=== PATIENT | male | born 1970 | race Caucasian/White ===

== ENCOUNTER 2017-11-08 08:24 | Inpatient (IN) | payer MEDICAID, SELFPAY ==
[2017-11-08] VITALS (11 sets, daily range): BP systolic 96–162; BP diastolic 66–106; PULSE 63–118; RESP 16–24; TEMP 36.1–37.1; O2SAT 88–100; BMI 21.1
--- NOTE | 2017-11-08 08:41 | EKG12_ITS ---
Test Reason : SUBST ABUSE Blood Pressure : / mmHG Vent. Rate : 087 BPM Atrial Rate : 087 BPM P-R Int : 152 ms QRS Dur : 080 ms QT Int : 356 ms P-R-T Axes : 058 -04 038 degrees QTc Int : 428 ms Normal sinus rhythm Normal ECG Confirmed by NEYDA PRICE, KAT ([id number]), editor at large MANUEL OROZCO ([id number] on 11/13/2017 4:03:08 PM Referred By: SUSAN Confirmed By:KAT FAYE MD
--- NOTE | 2017-11-08 08:42 | ED.VISSUMM ---
- ER Visit Summary Date of Service: 11/08/17 Chief Complaint: Alcohol withdrawal History of Present Illness: The patient is a 47 M presenting stating that he feels he is going into alcohol withdrawal. His last drink was 1 hour prior to arrival. He states he drinks a liter of vodka per day. He has been drinking heavily for the past 2 weeks. He has a history of previous DTs. He states when he goes through withdrawal he starts with having hallucinations. He is requesting detox. He has had detox in the past but does not recall his last detox admission. Physical Examination: Vitals are stable. Patient is afebrile. Alert no acute distress. HEENT exam is unremarkable. Neck is supple. Lungs are clear and equal bilaterally. Heart is regular and tachycardic Abdomen is soft nontender nondistended. Extremities are unremarkable. Skin is warm and dry. Remainder of exam is unremarkable. Emergency Department Course and Treatment: Patient is given IV fluids, Zofran, Ativan. EKG is sinus rate of 87. CBC is normal except for platelets 62. Chemistries normal except for potassium 3.3. ALT 106, AST 134. INR is normal. Alcohol level 391. Drug screen is negative. Patient was evaluated by Jarrod Jones in the emergency department. Patient is tachycardic and has history of previous DTs. He will be admitted medically and followed by Jarrod Jones in the hospital. Discussed with Dr. Palacios. Disposition: Admission Impression: Alcohol withdrawal This note was generated with [employer] dictation software. It may contain incorrect words, spelling, and punctuation that were not noted in review of the chart prior to signing ED Disposition - Plan for ED Patient: Chief Complaint: Subst Abuse Referrals: Elmer Bolton MD [Primary Care Provider] -
[2017-11-08 09:03] LABS: Absolute Lymphocyte Count 2.42 X10^3/ul (0.83-4.51); Absolute Neutrophil Count 1.2 X10^3/uL (2.0-7.7); Basophil# 0.07 X10^3/uL; Basophil% 1.5 % (0-1); Eosinophil# 0.28 X10^3/uL; Eosinophils% 5.9 % (0-5); Hematocrit 41.7 % (40-54); Hemoglobin 14.5 g/dl (13.0-16.5); Lymphocyte # 2.42 X10^3/ul (4.0); Lymphocyte % 51.4 % (19-41); Mean Corp Hgb Conc 34.8 g/gl (32-36); Mean Corpuscular Volume 94.8 fL (80-94); Mean Platelet Vol. 9.3 fl (6.2-12.0); Monocyte# 0.74 X10^3/uL; Monocyte% 15.7 % (0-10); Neutrophil # 1.18 X10^3/uL (2.7-7.7); Neutrophil % 25.1 % (47-70); POSITIVE COUNT NO; POSITIVE DIFFERENTIAL NO; POSITIVE MORPHOLOGY NO; Platelet Count 62 K/mm3 (150-450); RBC Distribution Width SD 48.7 fl (35.1-43.9); White Blood Count 4.7 K/mm3 (4.4-11.0)
[2017-11-08] MEDS: 0.9% Normal Saline 1,000 ML 1000 ML IV (09:12)
[2017-11-08] MEDS: LORazepam 2 MG/ML Syringe 1 MG IV (09:13)
[2017-11-08] MEDS: Ondansetron 4 MG/2 ML Vial IV (09:13)
[2017-11-08 09:24] LABS: AST(SGOT) 134 U/L (15-37); Alanine Aminotransfer ALT/SGPT 106 U/L (16-61); Albumin, Serum 4.5 g/dL (3.2-5.0); Alkaline Phosphatase 86 U/L (45-117); Anion Gap 10 (5-15); BUN 9 mg/dL (7-18); Bilirubin, Direct 0.21 mg/dL (0.00-0.30); Calcium,Total 8.7 mg/dL (8.5-10.1); Chloride 101 mmol/L (98-107); Creatinine, Serum 0.75 mg/dL (0.70-1.30); EST Glomerular Filtration Rate 117 mL/min (>60); Est Glom Filt Rate - Afr Amer 142 mL/min (>60); Estimated Creatinine Clearance 129.18 ml/min; Glucose 87 mg/dL (70-110); Potassium 3.3 mmol/L (3.5-5.1); Protein, Total 8.5 g/dL (6.4-8.2); Sodium Level 141 mmol/L (136-145)
--- NOTE | 2017-11-08 09:45 | ED.RN ---
DR DAVIS NOTIFIED OF BLOOD ALCOHOL RESULTS
[2017-11-08 10:30] LABS: Amphetamine Urine VISTA NEGATIVE (<1000 ng/mL); Barbiturate Urine VISTA NEGATIVE (< 200 ng/mL); Benzodiazepine Urine VISTA NEGATIVE (< 200 ng/mL); Cocaine Urine VISTA NEGATIVE (< 300 ng/mL); Ecstacy Urine VISTA NEGATIVE (< 500 ng/mL); Methadone Urine VISTA NEGATIVE (< 300 ng/mL); PCP Urine VISTA NEGATIVE (< 25 ng/mL); THC Urine VISTA NEGATIVE (< 50 ng/mL); Vista UDS pH Range 6
--- NOTE | 2017-11-08 10:53 | ED.RN ---
PT PULSE OX 88% ON ROOM AIR. PT SLEEPING. AWAKENS EASILY. PULSE OX COMES UP TO 95%. WHEN GOES BACK TO SLEEP PULSE OX BACK DOWN TO 88%. PT PLACED ON O2 2L/MIN VIA N/C. DR DAVIS NOTIFIED
--- NOTE | 2017-11-08 14:29 | NURSING ---
218 ACUTE ALCOHOL WITHDRAWAL NEEL
[2017-11-08] MEDS: cloNIDine HCl 0.1 MG Tablet PO ×2 (16:23→21:39)
[2017-11-08] MEDS: chlordiazePOXIDE 25 MG Capsule PO ×2 (16:23→21:40)
[2017-11-08] MEDS: LORazepam 1 MG Tablet 2 MG PO (16:23)
--- NOTE | 2017-11-08 16:37 | HP.PCM_ITS ---
<Isaias Lu - Last Filed: 11/08/17 16:26> Problem List (1) Alcohol withdrawal Status: Acute (2) Hypoxia Status: Acute (3) Hypokalemia Status: Chronic (4) Thrombocytopenia Status: Chronic (5) Tobacco dependency Status: Chronic (6) Anxiety Status: Acute History of Present Illness Date of Admission: 11/08/17 Chief Complaint: alcohol withdrawal The patient is a 47 year old M who presented to the ER with a chief complaint of feeling that he was going to start having alcohol withdrawal and a desire to stop drinking and safely go through withdrawal. He stated he felt the usual symptoms of shakiness starting, and was worried in the past he has had hallucinations and severe tremor. He was found to have abnormal liver functions , low platelets, and low potassium in the ER. He was given IV potassium. He was admitted to the floor and currently is comfortable and sleepy. He has been through detox before, he cannot remember when the last time was. He started drinking heavily at age 43 after a divorce. He has been drinking heavily for about 4 weeks now, and reports about 1 liter of low proof vodka / day and occasionally a beer. He has a medical hx of anxiety for which he takes cymbalta and has no recollection of prior liver problems. His oxygenation was low in the ER and he was placed on nasal cannula, he has no hx asthma or copd and does not use O2 at home but is a smoker. He does not complain of SOB. [] Past Medical History Past Medical History (Chronic Problems): Chronic Problems Thrombocytopenia (Chronic) Hypokalemia (Chronic) Arthritis of left hip (Chronic) Tobacco dependency (Chronic) Allergies diphenhydramine HCl [From Benadryl] Adverse Reaction (Verified 11/08/17 08:28) Swelling mushroom Adverse Reaction (Verified 11/08/17 08:28) Vomiting Home Medications: Ambulatory Orders Medication Instructions Recorded Duloxetine Hcl [Cymbalta] 60 mg PO DAILY 11/08/17 Surgical History: tonsillectomy Psychiatric History: No pertinent psych hx Lives: Alone Smoking Status: Current every day smoker Tobacco Use: Cigarettes Alcohol: Heavy Drugs: None - *Family History Sibling History Items: No pertinent history Maternal History Items: Hypertension Paternal History Items: No pertinent history Review of Systems Constitutional: Reports: Fatigue. Denies: Chills, Fever, Weight Change HEENT: Denies: Head Aches, Sinus Congestion, Sinus Drainage Cardiovascular: Denies: Chest Pain, Palpitations Respiratory: Denies: Cough, Shortness of breath at rest, Sputum production Gastrointestinal: Denies: Abdominal Pain, Nausea, Vomiting Genitourinary: Denies: Dysuria Musculoskeletal: Denies: Joint Pain, Joint Tenderness Skin: Denies: Rash, Wounds Neurological: Denies: Numbness, Tingling, Focal weakness Psychiatric: Denies: Anxiety, Depression, Homicidal Ideations, Suicidal Ideations Hematologic/ Lymphatic: Denies: Easy Bruising, Easy Bleeding VTE Information - Inpt Only VTE Present on Admission: No VTE Mechan Device Prophylaxis: SCD's VTE Pharm Prophylaxis ordered?: No Reason prophylaxis not ordered:: Medical Contraindication Patient Problems: Active and Suspected Problems Anxiety (Acute) Hypoxia (Acute) - Physical Exam General: Alert, Oriented x3, Cooperative HEENT: Atraumatic, PERRLA, EOMI, Normocephalic Neck: Supple, No JVD, Negative Carotid Bruits Lungs: Clear to auscultation, Normal air movement Cardiovascular: Regular rate, No murmurs Abdomen: Bowel Sounds Present, Soft, Non Tender Extremities: No edema, Capillary Refill Less than 3 Seconds Skin: No rashes, No breakdown Musculoskeletal: No Tenderness to Palpation of Joints or Extremities Neurological: Cranial nerves II-XII grossly intact, - - fine tremor in hands, no asterixis. Psych/Mental Status: Normal Affect, Appropriate, Alert and oriented to time, place, person, mood and affect Vital Signs Temp Pulse Resp BP Pulse Ox 96.9 F L 87 16 116/85 H 94 11/08/17 15:38 11/08/17 15:38 11/08/17 15:38 11/08/17 15:38 11/08/17 15:38 Oxygen Flow Rate 4.5 Oxygen Delivery Method Nasal Cannula Weight: 76.6 kg Body Mass Index (BMI) 21.1 Assessment/Plan Active and Suspected Problems Anxiety (Acute) Hypoxia (Acute) 1. Acute alcohol intoxication with withdrawal - current primary symptoms is tremor. Drinks 1 liter low proof vodka / day. Alcoholic since 43. Plan at [place] is to get a private counselor. Does not want to do AA - makes him depressed. Start CIWA protocol with librium, ativan, folate, thiamine, multivitamin, and medical stabilization protocol. Check mag phos. K+ repleted. Watch for hallucinations ( hx). Drug screen otherwise negative. Alcohol level severely elevated at 391 at admission. 2. Acute hypoxia - lungs are clear. stable on 2 lpm. Wean as tolerated and start incentive spirometer. No complaints of SOB. 3. Nicotine abuse - Path 4. Elevated LFTs - no prior hx. Will need w/u as outpatient, likely has liver damage. 5. Thrombocytopenia - likely 2/2 alcoholism. No heparin products 6. Anxiety - continue cymbalta 7. Hypokalemia - repleted, check mag/phos, recheck in AM. DVT ppx: SCDs DC planning: upon completion of stabilization program, outpatient counselling This patient was seen by Isaias Lu PA-C under the supervision of Doctor Philip. <Huber Palacios - Last Filed: 11/08/17 20:42> History of Present Illness Seen and examined. Patient is admitted for acute alcohol withdrawal. He has history of multiple recurrent admission for alcohol withdrawal . Denies recent seizure or hallucination.[] Past Medical History Allergies diphenhydramine HCl [From Benadryl] Adverse Reaction (Verified 11/08/17 08:28) Swelling mushroom Adverse Reaction (Verified 11/08/17 08:28) Vomiting - Physical Exam General: Alert, Oriented x3, Cooperative Neck: Supple Lungs: Clear to auscultation, Normal air movement Cardiovascular: Regular rate, Normal S1 Abdomen: Bowel Sounds Present, Soft Neurological: Neuro grossly intact, - Vital Signs Temp Pulse Resp BP Pulse Ox 96.9 F L 87 16 116/85 H 94 11/08/17 15:38 11/08/17 15:38 11/08/17 15:38 11/08/17 15:38 11/08/17 15:38 Oxygen Flow Rate 4.5 Oxygen Delivery Method Nasal Cannula Weight: 168 lb 13.985 oz Body Mass Index (BMI) 21.1 Intake and Output for Last 24 Hours 11/06/17 11/07/17 11/08/17 23:59 23:59 23:59 Intake Total 346 / 346 Balance 346 / 346 Assessment/Plan This patient was seen in conjunction with Isaias CALLAHAN. I have independently interviewed and examined the patient and reviewed pertinent history, examination findings, laboratory and plan of management. I have reviewed the note and agree with the documented findings with the few additional points. In brief, patient is admitted for acute alcohol withdrawal with intoxication. Patient is on stabilization as per [facility] program. I have discussed my assessment with Isaias CALLAHAN and orders have been reviewed. Code Visit Inpatient E&M: 47610 Init Hosp L3
[2017-11-08 16:48] LABS: Magnesium 1.6 mg/dL (1.6-2.6); Phosphorus 4.1 mg/dL (2.5-4.9)
[2017-11-08] MEDS: Thiamine Hydrochloride 100 MG Tablet PO (17:36)
[2017-11-08] MEDS: Multivitamins,Ther W-Minerals Tablet 1 TABLET PO (17:36)
[2017-11-08] MEDS: DULoxetine Hcl 60 MG Capsule PO (17:36)
[2017-11-09] VITALS (8 sets, daily range): BP systolic 115–146; BP diastolic 81–91; PULSE 62–85; RESP 16–18; TEMP 36.6–37.1; O2SAT 95–100
[2017-11-09] MEDS: cloNIDine HCl 0.1 MG Tablet PO ×6 (02:14→21:13)
[2017-11-09] MEDS: chlordiazePOXIDE 25 MG Capsule PO ×3 (04:15→18:00)
[2017-11-09 05:57] LABS: Absolute Neutrophil Count 1.7 X10^3/uL (2.0-7.7); Basophil# 0.05 X10^3/uL; Basophil% 1.5 % (0-1); Eosinophil# 0.13 X10^3/uL; Eosinophils% 3.8 % (0-5); Hematocrit 36.5 % (40-54); Hemoglobin 12.2 g/dl (13.0-16.5); Lymphocyte % 29.5 % (19-41); Mean Corp Hgb Conc 33.4 g/gl (32-36); Mean Corpuscular Hgb 32.4 pg (27.0-32.0); Mean Corpuscular Volume 96.8 fL (80-94); Mean Platelet Vol. 9.4 fl (6.2-12.0); Monocyte# 0.53 X10^3/uL; Monocyte% 15.6 % (0-10); Neutrophil # 1.66 X10^3/uL (2.7-7.7); RBC Distribution Width CV 13.6 % (11.6-14.6); RBC Distribution Width SD 46.1 fl (35.1-43.9); Red Blood Count 3.77 M/mm3 (4.6-6.2); White Blood Count 3.4 K/mm3 (4.4-11.0)
[2017-11-09 06:06] LABS: Differential Indicated SCAN CRITERIA MET; POSITIVE COUNT YES; POSITIVE DIFFERENTIAL NO; POSITIVE MORPHOLOGY NO; Platelet Count 48 K/mm3 (150-450)
[2017-11-09 06:39] LABS: Anion Gap 8 (5-15); BUN 13 mg/dL (7-18); BUN/Creat Ratio 18.9 RATIO (10-20); Calcium,Total 8.2 mg/dL (8.5-10.1); Chloride 98 mmol/L (98-107); Creatinine, Serum 0.69 mg/dL (0.70-1.30); EST Glomerular Filtration Rate 130 mL/min (>60); Est Glom Filt Rate - Afr Amer 157 mL/min (>60); Estimated Creatinine Clearance 140.31 ml/min; Glucose 103 mg/dL (70-110); Magnesium 1.2 mg/dL (1.6-2.6); Potassium 4.3 mmol/L (3.5-5.1); Sodium Level 136 mmol/L (136-145)
[2017-11-09 06:54] LABS: Differential Comment SCAN
[2017-11-09 06:55] LABS: Platelet Estimate MKD DEC (ADEQ)
[2017-11-09] MEDS: Thiamine Hydrochloride 100 MG Tablet PO ×2 (09:13→17:58)
[2017-11-09] MEDS: Multivitamins,Ther W-Minerals Tablet 1 TABLET PO (09:13)
[2017-11-09] MEDS: Folic Acid 1 MG Tablet PO (09:14)
[2017-11-09] MEDS: DULoxetine Hcl 60 MG Capsule PO (09:15)
--- NOTE | 2017-11-09 09:18 | PN_ITS ---
Patient Problems: Active and Suspected Problems Anxiety (Acute) Hypoxia (Acute) Subjective: Patient is a 47-year-old gentleman admitted with acute alcohol withdrawal; admitted to regular nursing floor where patient is currently undergoing medical stabilization 11/09/2017; patient seen, complains of constipation also remains significantly tremulous at rest. Has significant electrolyte abnormalities including hypomagnesemia with magnesium level of 1.2. His hypokalemia which was present on admission has since been corrected Objective: GENERAL: cooperative HEENT: Clear conjunctiva, NECK; supple, normal thyroid,. CHEST: Clear to auscultation bilaterally, HEART: Regular S1 S2, no audible murmurs ABDOMEN: soft, non-tender, normoactive bowel sounds, RECTAL: deferred EXTREMITIES: No edema, no clubbing, no cyanosis. COLLEGE PRESIDENT: Awake, no lateralizing signs Skin: No rash Vitals/I&O's: Vital Signs Temp Pulse Resp BP Pulse Ox 98.3 F 75 16 115/84 H 98 11/09/17 05:40 11/09/17 07:30 11/09/17 05:40 11/09/17 05:40 11/09/17 05:40 Oxygen Flow Rate 2 Oxygen Delivery Method Room Air Weight: 76.6 kg Body Mass Index (BMI) 21.1 Intake and Output for Last 24 Hours 11/07/17 11/08/17 11/09/17 23:59 23:59 23:59 Intake Total 346 / 346 693 / 693 Output Total 280 / 280 Balance 346 / 346 413 / 413 Laboratory Results 11/09/17 05:30: Sodium 136, Potassium 4.3, Chloride 98, Carbon Dioxide 30.0, Anion Gap 8, BUN 13, Creatinine 0.69 L, Estim Creat Clear Calc 140.31, Est GFR ( MDRD) Af Amer 157, Est GFR (MDRD) Non-Af 130, BUN/Creatinine Ratio 18.9, Glucose 103, Calcium 8.2 L, Magnesium 1.2 L, Folate 10.90 11/09/17 05:30: WBC 3.4 L, RBC 3.77 L, Hgb 12.2 L, Hct 36.5 L, MCV 96.8 H, MCH 32.4 H, MCHC 33.4, RDW 13.6, RDW Differential 46.1 H, Plt Count 48 L*, MPV 9.4, Immature Gran % (Auto) 0.600, Neut % (Auto) 49.0, Lymph % (Auto) 29.5, Menard % ( Auto) 15.6 H, Eos % (Auto) 3.8, Baso % (Auto) 1.5 H, Absolute Neuts (auto) 1.7 L , Absolute Lymphs (auto) 1.00, Total Counted Not Reportable, Differential Comment SCAN, Diff Path Review February foll, Platelet Estimate MKD 11/09/17 05:30: Vitamin B12 Pending 11/09/17 05:30: Whole Bld Vitamin B1 Pending Current Medications Chlordiazepoxide (Librium) 50 mg PO Q6H ROBERT PRN Reason: Taper Stop: 11/11/17 18:14 Last Admin: 11/09/17 04:15 Dose: 50 mg Clonidine (Catapres) 0.1 mg PO Q4 PENDING SALE TO [facility] Last Admin: 11/09/17 05:39 Dose: 0.1 mg Dicyclomine HCl (Bentyl) 20 mg PO Q6H PRN PRN PRN Reason: abdominal discomfort Duloxetine HCl (Cymbalta) 60 mg PO DAILY [facility] Last Admin: 11/08/17 17:36 Dose: 60 mg Folic Acid (Folic Acid) 1 mg PO DAILY@0800 [facility] Stop: 11/11/17 08:01 Potassium Chloride/Sodium Chloride () 1,000 mls @ 100 mls/hr IV .Q10H PENDING SALE TO [facility] Last Admin: 11/08/17 21:39 Dose: 100 mls/hr Influenza Virus Vaccine Quadrival (Fluarix/Fluzone) 0.5 ml IM .ONCE ONE Stop: 11/09/17 10:01 Lorazepam (Ativan) 2 mg IV Q2H PRN PRN; Protocol PRN Reason: CIWA score > 8 but <15 Lorazepam (Ativan) 2 mg IV UD PRN; Protocol PRN Reason: CIWA score >/=15. Lorazepam (Ativan) 2 mg PO Q2H PRN PRN; Protocol PRN Reason: CIWA score > 8 but <15 Last Admin: 11/08/17 16:23 Dose: 2 mg Lorazepam (Ativan) 2 mg PO UD PRN; Protocol PRN Reason: CIWA score >/=15. Methocarbamol (Methocarbamol) 750 mg PO Q6H PRN PRN PRN Reason: Muscle Aches Multivitamins/Minerals ([facility]ivitamin With Minerals) [facility] Last Admin: 11/08/17 17:36 Dose: 1 tablet Nicotine (Nicoderm Cq (Pbkc)) 21 mg TRANSDERM. DAILY [facility] Nutritional Formula (Lactose Free) (Ensure Enlive) 120 ml PO 4X/DAY [facility] Last Admin: 11/08/17 21:40 Dose: 120 ml Potassium Chloride (K-Dur) [facility]q [facility] Pramipexole Dihydrochloride (Mirapex) 0.25 mg PO Q12H PRN PRN PRN Reason: Restless legs Quetiapine Fumarate (Seroquel) 25 mg PO Q6H PRN PRN PRN Reason: Moderate Anxiety (score 2/3) Sodium Chloride () 5 - 30 ml IV UD PRN PRN Reason: SALINE FLUSH Thiamine HCl (Vitamin B1) [facility] Stop: 11/11/17 08:01 Last Admin: 11/08/17 17:36 Dose: 100 mg Assessment/Plan Active and Suspected Problems Anxiety (Acute) Hypoxia (Acute) Patient is a 47-year-old gentleman admitted with acute alcohol withdrawal 1. Acute alcohol withdrawal patient was admitted to a nursing floor for medical stabilization using diazepam 2. Hypomagnesemia corrected per Protocol 3. Thrombocytopenia chronic secondary to his chronic alcohol use 4. Hypokalemia corrected per protocol 5. Chronic left hip pain 6. Chronic liver disease secondary to patient's chronic alcohol abuse 7. DVT prophylaxis; chemoprophylaxis contraindicated in view of his significant low platelet level 8. Constipation treated symptomatically Code Visit Inpatient E&M: 91199 [facility] Hosp L3
[2017-11-09] MEDS: Senna Tablet 1 TABLET PO ×2 (10:09→21:13)
[2017-11-09] MEDS: Magnesium Oxide 400 MG Tablet PO ×2 (10:09→17:59)
[2017-11-09 13:15] LABS: Pathologist Review Reviewed
[2017-11-09] MEDS: Magnesium Citrate 300 ML 150 ML PO (14:17)
[2017-11-10] MEDS: cloNIDine HCl 0.1 MG Tablet PO ×6 (02:10→21:20)
[2017-11-10] MEDS: chlordiazePOXIDE 25 MG Capsule PO ×3 (02:10→17:44)
[2017-11-10 02:12] VITALS: BP 138/91; PULSE 77; RESP 17; TEMP 36.6; O2SAT 98
--- NOTE | 2017-11-10 07:34 | PCM.PN.HOSP ---
Patient Problems: Active and Suspected Problems Anxiety (Acute) Hypoxia (Acute) Subjective: Patient seen complains of feeling wobbly. Requested for PT OT eval and treatment Objective: GENERAL: cooperative HEENT: Clear conjunctiva, NECK; supple, normal thyroid,. CHEST: Clear to auscultation bilaterally, HEART: Regular S1 S2, no audible murmurs ABDOMEN: soft, non-tender, normoactive bowel sounds, RECTAL: deferred EXTREMITIES: No edema, no clubbing, no cyanosis. 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, no lateralizing signs Skin: No rash Vitals/I&O's: Vital Signs Temp Pulse Resp BP Pulse Ox 97.9 F 77 17 138/91 H 98 11/10/17 02:12 11/10/17 02:12 11/10/17 02:12 11/10/17 02:12 11/10/17 02:12 Oxygen Flow Rate 2 Oxygen Delivery Method Room Air Weight: 76.6 kg Body Mass Index (BMI) 21.1 Intake and Output for Last 24 Hours 11/08/17 11/09/17 11/10/17 23:59 23:59 23:59 Intake Total 346 / 346 1774 / 1774 1020 / 1020 Output Total 780 / 780 2375 / 2375 Balance 346 / 346 994 / 994 -1355 / -1355 Laboratory Results 11/09/17 05:30: Diff Path Review Reviewed Current Medications Chlordiazepoxide (Librium) 50 mg PO Q8H ROBERT PRN Reason: Taper Stop: 11/11/17 18:14 Last Admin: 11/10/17 02:10 Dose: 50 mg Clonidine (Catapres) 0.1 mg PO Q4 [facility] Last Admin: 11/10/17 04:55 Dose: 0.1 mg Dicyclomine HCl (Bentyl) 20 mg PO Q6H PRN PRN PRN Reason: abdominal discomfort Duloxetine HCl (Cymbalta) 60 mg PO DAILY [facility] Last Admin: 11/09/17 09:15 Dose: 60 mg Folic Acid (Folic Acid) 1 mg PO DAILY@0800 [facility] Stop: 11/11/17 08:01 Last Admin: 11/09/17 09:14 Dose: 1 mg Lorazepam (Ativan) 2 mg IV Q2H PRN PRN; Protocol PRN Reason: CIWA score > 8 but <15 Lorazepam (Ativan) 2 mg IV UD PRN; Protocol PRN Reason: CIWA score >/=15. Lorazepam (Ativan) 2 mg PO Q2H PRN PRN; Protocol PRN Reason: CIWA score > 8 but <15 Last Admin: 11/08/17 16:23 Dose: 2 mg Lorazepam (Ativan) 2 mg PO UD PRN; Protocol PRN Reason: CIWA score >/=15. Magnesium Oxide (Mag-Ox 400) [facility] Last Admin: 11/09/17 17:59 Dose: 400 mg Methocarbamol (Methocarbamol) 750 mg PO Q6H PRN PRN PRN Reason: Muscle Aches Multivitamins/Minerals (Multivitamin With Minerals) [facility] Last Admin: 11/09/17 09:13 Dose: 1 tablet Nicotine (Nicoderm Cq (Pbkc)) 21 mg TRANSDERM. DAILY [facility] Last Admin: 11/09/17 09:14 Dose: 21 mg Nutritional Formula (Lactose Free) (Ensure Enlive) 120 ml PO 4X/DAY [facility] Last Admin: 11/09/17 21:13 Dose: 120 ml Potassium Chloride (K-Dur) 40 meq [facility] Last Admin: 11/09/17 09:14 Dose: 40 meq Pramipexole Dihydrochloride (Mirapex) 0.25 mg PO Q12H PRN PRN PRN Reason: Restless legs Quetiapine Fumarate (Seroquel) 25 mg PO Q6H PRN PRN PRN Reason: Moderate Anxiety (score 2/3) Senna (Senokot) 1 tablet PO BID [facility] Last Admin: 11/09/17 21:13 Dose: 1 tablet Sodium Chloride () 5 - 30 ml IV UD PRN PRN Reason: SALINE FLUSH Thiamine HCl (Vitamin B1) [facility] Stop: 11/11/17 08:01 Last Admin: 11/09/17 17:58 Dose: 100 mg Assessment/Plan Active and Suspected Problems Anxiety (Acute) Hypoxia (Acute) Patient is a 47-year-old gentleman admitted with acute alcohol withdrawal 1. Acute alcohol withdrawal patient was admitted to a nursing floor for medical stabilization using diazepam 2. Hypomagnesemia corrected per Protocol 3. Thrombocytopenia chronic secondary to his chronic alcohol use 4. Hypokalemia corrected per protocol 5. Chronic left hip pain 6. Chronic liver disease secondary to patient's chronic alcohol abuse 7. DVT prophylaxis; chemoprophylaxis contraindicated in view of his significant low platelet level 8. Constipation treated symptomatically 9. Physical deconditioning requested for PT OT eval and treatment. Code Visit Inpatient E&M: 32038 Subs Hosp L2
[2017-11-10 07:42] VITALS: BP 123/87; PULSE 79; RESP 18; TEMP 36.8; O2SAT 99
[2017-11-10] MEDS: Folic Acid 1 MG Tablet PO (07:46)
[2017-11-10] MEDS: Magnesium Oxide 400 MG Tablet PO ×2 (07:46→16:45)
[2017-11-10] MEDS: Thiamine Hydrochloride 100 MG Tablet PO ×2 (07:47→16:45)
[2017-11-10 08:00] VITALS: BP 123/87; PULSE 79; RESP 18; TEMP 36.8; O2SAT 99
[2017-11-10 08:31] LABS: Vitamin B12 519 pg/mL (211-911)
[2017-11-10] MEDS: Multivitamins,Ther W-Minerals Tablet 1 TABLET PO (09:37)
[2017-11-10] MEDS: Senna Tablet 1 TABLET PO ×2 (09:38→21:20)
--- NOTE | 2017-11-10 11:06 | PCA ---
THERAPY WORKING WITH PT
[2017-11-10] MEDS: DULoxetine Hcl 60 MG Capsule PO (11:42)
[2017-11-10 14:00] VITALS: BP 128/86; PULSE 80; RESP 18; TEMP 36.9; O2SAT 100
[2017-11-10 14:30] VITALS: BP 128/86; PULSE 81; RESP 18; TEMP 36.9; O2SAT 100
[2017-11-10 21:21] VITALS: BP 124/90; PULSE 74; RESP 18; TEMP 36.7; O2SAT 100
[2017-11-11 02:11] VITALS: BP 136/99; PULSE 74; RESP 16; TEMP 36.9; O2SAT 100
[2017-11-11] MEDS: cloNIDine HCl 0.1 MG Tablet PO ×3 (02:11→08:50)
[2017-11-11] MEDS: chlordiazePOXIDE 25 MG Capsule PO (05:45)
[2017-11-11 05:47] VITALS: BP 124/87; PULSE 78; RESP 18; TEMP 36.7; O2SAT 97
[2017-11-11 07:25] VITALS: BP 120/91; PULSE 70; RESP 18; TEMP 36.5; O2SAT 100
[2017-11-11] MEDS: Magnesium Oxide 400 MG Tablet PO (07:28)
[2017-11-11] MEDS: Multivitamins,Ther W-Minerals Tablet 1 TABLET PO (07:29)
[2017-11-11] MEDS: Folic Acid 1 MG Tablet PO (07:29)
[2017-11-11] MEDS: Thiamine Hydrochloride 100 MG Tablet PO (07:30)
--- NOTE | 2017-11-11 08:42 | PCM.DC ---
- Discharge Diagnoses Current Active Problems: Current Active and Chronic Problems Thrombocytopenia (Chronic) Anxiety (Acute) Hypoxia (Acute) You will use the following diet at home:: No restrictions Discharge Activity: May not drive while taking narcotic pain medications. Allergies/Adverse Reactions: Allergies diphenhydramine HCl [From Benadryl] Adverse Reaction (Verified 11/08/17 08:28) Swelling mushroom Adverse Reaction (Verified 11/08/17 08:28) Vomiting Medications to take at Discharge Duloxetine Hcl [Cymbalta] 60 mg PO DAILY 11/08/17 Folic Acid 1 mg PO DAILY@0800 #30 tab 11/11/17 Multivitamins,Ther W-Minerals [Multivitamin With Minerals] 1 tab PO DAILYCM #30 tab 11/11/17 Thiamine HCl [B-1] 100 mg PO DAILY #30 tab 11/11/17 The following prescriptions were given: Folic Acid 1 mg PO DAILY@0800 #30 tab Multivitamins,Ther W-Minerals [Multivitamin With Minerals] 1 tab PO DAILYCM #30 tab Thiamine HCl [B-1] 100 mg PO DAILY #30 tab Primary Care Physician: Elmer Bolton MD [Primary Care Provider] - Please follow up with your Primary Care Physician in: in 5-7 days Proposed Discharge Date: 11/11/17
--- NOTE | 2017-11-11 08:46 | PCM.DC.SUM ---
Discharge Date and Diagnosis - Problem List Patient Problems: Active and Suspected Problems Anxiety (Acute) Hypoxia (Acute) Date of Admission: 11/08/17 Date of Discharge: 11/11/17 - Primary Discharge Diagnosis Active and Suspected Problems Anxiety (Acute) Hypoxia (Acute) - Secondary Discharge Diagnosis Chronic Problems Thrombocytopenia (Chronic) Hypokalemia (Chronic) Arthritis of left hip (Chronic) Tobacco dependency (Chronic) Hospital Course and Treatment Operations: None Summary of Care Provided: Patient is a 47-year-old gentleman admitted with acute alcohol withdrawal 1. Acute alcohol withdrawal patient was admitted to a nursing floor for medical stabilization using diazepam patient condition did stabilize after 3 days of hospitalization subsequently discharged home patient was counseled on the need to quit drinking. 2. Hypomagnesemia corrected per Protocol 3. Thrombocytopenia chronic secondary to his chronic alcohol use 4. Hypokalemia corrected per protocol 5. Chronic left hip pain 6. Chronic liver disease secondary to patient's chronic alcohol abuse 7. DVT prophylaxis; chemoprophylaxis contraindicated in view of his significant low platelet level 8. Constipation treated symptomatically 9. Physical deconditioning requested for PT OT eval and treatment. Discharge Activity: May not drive while taking narcotic pain medications. Home Medications: Medications to take at Discharge Duloxetine Hcl [Cymbalta] 60 mg PO DAILY 11/08/17 Folic Acid 1 mg PO DAILY@0800 #30 tab 11/11/17 Multivitamins,Ther W-Minerals [Multivitamin With Minerals] 1 tab PO DAILYCM #30 tab 11/11/17 Thiamine HCl [B-1] 100 mg PO DAILY #30 tab 11/11/17 Following Prescrptions Were Given to Patient: Folic Acid 1 mg PO DAILY@0800 #30 tab Multivitamins,Ther W-Minerals [Multivitamin With Minerals] 1 tab PO DAILYCM #30 tab Thiamine HCl [B-1] 100 mg PO DAILY #30 tab Primary Care Physician: Elmer Bolton MD [Primary Care Provider] - Please follow up with your Primary Care Physician in: in 5-7 days Disposition: Home Minutes spent on discharge:: 35 Patient Condition:: Stable Meaningful Use Info Meaningful Use Diagnoses (Choose all that apply): None applicable Code Visit Inpatient E&M: 48615 Disch Hosp
[2017-11-11] MEDS: Senna Tablet 1 TABLET PO (08:51)
[2017-11-11] MEDS: DULoxetine Hcl 60 MG Capsule PO (08:51)
[2017-11-11 09:05] VITALS: BP 120/91; PULSE 70; RESP 18; TEMP 36.5; O2SAT 100
[2017-11-13 07:53] LABS: Vitamin B1, Thiamine 124.6 nmol/L (66.5-200.0)
== END 2017-11-11 09:05 | disposition home or self-care (01) | DRG 434 ==
LOC: ED 08:48 → MS2 14:37
PROVIDERS: Physician Assistant; Admitting Provider Internal Medicine; Emergency Provider Emergency Medicine; Family Provider Family Medicine; PCP Family Medicine; Visit Provider Internal Medicine
DX: F10.239 Alcohol dependence with withdrawal, unspecified (principal); D69.59 Other secondary thrombocytopenia; F10.229 Alcohol dependence with intoxication, unspecified; K70.9 Alcoholic liver disease, unspecified; E83.42 Hypomagnesemia; E87.6 Hypokalemia; F17.210 Nicotine dependence, cigarettes, uncomplicated; R09.02 Hypoxemia; F41.9 Anxiety disorder, unspecified; Y90.8 Blood alcohol level of 240 mg/100 ml or more; M16.12 Unilateral primary osteoarthritis, left hip; K59.00 Constipation, unspecified
CPT/HCPCS: 36415; 80048; 80076; 80307; 80320; 82607; 82746; 83735; 84100; 84425; 85025; 85610; 93005; 97161; 97165; 97802; 99284; 99406; J7050; A4216; G0480; J2405

== ENCOUNTER 2017-12-27 03:30 | Inpatient (IN) | payer MEDICAID, SELFPAY ==
--- NOTE | 2017-12-27 02:42 | EKG12_ITS ---
Test Reason : Blood Pressure : / mmHG Vent. Rate : 103 BPM Atrial Rate : 103 BPM P-R Int : 154 ms QRS Dur : 084 ms QT Int : 364 ms P-R-T Axes : 041 -16 031 degrees QTc Int : 476 ms Sinus tachycardia Otherwise normal ECG Confirmed by NEYDA PRICE, KAT ([id number]), food expeditor MANUEL OROZCO ([id number]) on 12/29/2017 2:48:53 PM Referred By: DEL Confirmed By:KAT FAYE MD
--- OUTSIDE RECORDS SUMMARY | 2017-12-27 04:18 | XMS RPT_ITS ---
:1970 External Reference #:[id number] Author Organization OHIP Support Name Relationship Address Phone S Unavailable Unavailable Unavailable BOLTON, ASYA Unavailable [address] + [place] [address] YA, PURA Unavailable Unavailable + S Unavailable Unavailable Unavailable BOLTON, ASYA Unavailable [address] + [place] [address] YA, PURA Unavailable Unavailable + S Unavailable Unavailable Unavailable BOLTON, ASYA Unavailable [address] + [place] [address] YA, PURA Unavailable Unavailable + S Unavailable Unavailable Unavailable BOLTON, ASYA Unavailable [address] + [place] [address] YA, PURA Unavailable Unavailable + S Unavailable Unavailable Unavailable BOLTON, ASYA Unavailable [address] + [place] [address] YA, PURA Unavailable Unavailable + S Unavailable Unavailable Unavailable BOLTON, AYSA Unavailable [address] + [place] [address] YA, PURA Unavailable . + ., [place] . S Unavailable Unavailable Unavailable BOLTON, ASYA Unavailable [address] + [place] [address] YA, PURA Unavailable . + ., [place] . S Unavailable Unavailable Unavailable BOLTON, ASYA Unavailable [address] + [place] [address] YA, PURA Unavailable . + ., [place] . Care Team Providers Name Role Phone Philip, Huber Admitting Unavailable Kittoe, Meryl Attending Unavailable Bolton, Asya Primary Care Unavailable Kittoe, Meryl Consulting Unavailable Philip, Huber Admitting Unavailable Kittoe, Meryl Attending Unavailable Bolton, Asya Primary Care Unavailable Kittoe, Meryl Consulting Unavailable Philip, Huber Admitting Unavailable Kittoe, Meryl Attending Unavailable Bolton, Asya Primary Care Unavailable Kittoe, Meryl Consulting Unavailable Bolton, Asya Primary Care Unavailable Philip, Huber Admitting Unavailable Kittoe, Meryl Attending Unavailable Travis Norris Attending Unavailable Bolton, Asya Primary Care Unavailable Philip, Huber Admitting Unavailable Bolton, Asya Primary Care Unavailable Philip, Huber Consulting Unavailable Philip, Huber Attending Unavailable Tereletsky, Malvin Admitting Unavailable Tereletsky, Malvin Attending Unavailable Bolton, Asya Primary Care Unavailable Evaristo Shay Attending Unavailable Talampas, Sabine Primary Care Unavailable PROBLEMS PROBLEMS DATE TYPE CONDITION / CODE ATTENDING STATUS SOURCE 05/26/2017 Unknown ALCOHOL DEPENDENCE Tereletsky, Active [place] WITH WITHDRAWAL, [facility] UNSPECIFIED / Hospital F10.239(ICD-10) Repository 05/26/2017 Unknown NICOTINE Tereletsky, Active [place] DEPENDENCE, [facility] CIGARETTES, Hospital UNCOMPLICATED / Repository F17.210(ICD-10) 05/26/2017 Unknown MAJOR DEPRESSIVE Tereletsky, Active [place] DISORDER, SINGLE [facility] EPISODE, Hospital UNSPECIFIED / Repository F32.9(ICD-10) 05/26/2017 Unknown UNILATERAL PRIMARY Tereletsky, Active [place] OSTEOARTHRITIS, [facility] LEFT HIP / Hospital M16.12(ICD-10) Repository 05/26/2017 Unknown HYPOKALEMIA / Tereletsky, Active [place] E87.6(ICD-10) [facility] Hospital Repository 05/26/2017 Unknown ALCOHOL ABUSE, Travis Norris Active [place] UNCOMPLICATED / Community F10.10(ICD-10) Hospital Repository 05/26/2017 Unknown TOBACCO USE / Travis Norris Active [place] Z72.0(ICD-10) [facility] PROCEDURES PROCEDURES No Procedure Records FoundRESULTS RESULTS 12 LEAD ELECTROCARDIOGRAM Observed: 11/13/2017 Status: F Source: [place] 4:03 PM [facility] RE[facility]ITORY [facility] [address] [place], [place] [id number] Lead EKG011/08/17 0857MR#: [id number] Acct: [id number]: MERYL PANDYA Rep #: [id number]: [birth year] From: Sam Domínguez MDAttending Dr: Meryl Delong MD Status: DIS INOrdering Dr: Sandra Aguila MD Date: 11/08/17Location: MS2 Sex: M CAdmitted: Test Reason : SUBST ABUSEBlood Pressure : / mmHGVent. Rate : 087 BPM Atrial Rate : 087 BPMP-R Int : 152 ms QRS Dur : 080 msQT Int : 356 ms P-R-T Axes : 058 -04 038 degreesQTc Int : 428 msNormal sinus rhythmNormal ECGConfirmed by SAM DOMÍNGUEZ MD ([id number]), pictures editor MANUEL OROZCO ([id number]) on 11/13/2017 4:03:08 PMReferred By : SUSAN Confirmed By:SAM DOMÍNGUEZ MD11/13/17 1603Date Sam Domínguez MDCC: Asya Bolton MD Signed DISCHARGE SUMMARY Observed: 11/11/2017 Status: F Source: [place] 8:51 AM [facility] REPOSITORY [facility]ITALMedical Records [address] [facility] [place], [place] [address]Pepgghrnt Ojzpeya88/03/18 0846MR#: [id number] Acct: [id number]: MERYL PANDYA Rep #: [id number]: 1970 47 From: Meryl Delong MDPCP: Asya Bolton MD Status: ADM IN YLocation: MS2 [id number] Date and Diagnosis- Problem ListPatient Problems:Active and Suspected ProblemsAnxiety (Acute)Hypoxia (Acute )Date of Admission: 11/08/17Date of Discharge: 11/11/17- Primary Discharge DiagnosisActive and Suspected ProblemsAnxiety (Acute)Hypoxia (Acute)- Secondary Discharge DiagnosisChronic ProblemsThrombocytopenia (Chronic)Hypokalemia (Chronic) Arthritis of left hip (Chronic)Tobacco dependency (Chronic)Hospital Course and TreatmentOperations: NoneSummary of Care Provided:Patient is a 47-year-old gentleman admitted with acute alcohol withdrawal1. Acute alcohol withdrawal patient was admitted to a nursing floor for medical stabilizationusing diazepam patient condition did stabilize after 3 days of hospitalization subsequentlydischarged home patient was counseled on the need to quit drinking.2. Hypomagnesemia corrected per Protocol3. Thrombocytopenia chronic secondary to his chronic alcohol use4. Hypokalemia corrected per protocol5. Chronic left hip pain6. Chronic liver disease secondary to patient's chronic alcohol abuse7. DVT prophylaxis; chemoprophylaxis contraindicated in view of his significant low plateletlevel8. Constipation treated symptomatically9. Physical deconditioning requested for PT OT eval and treatment.Discharge Activity: May not drive while taking narcotic pain medications.Home Medications:Medications to take at DischargeDuloxetine Hcl [Cymbalta] 60 mg PO DAILY 11/08/17olic Acid 1 mg PO DAILY@0800 #30 tab 11/11/17Multivitamins,Ther W-Minerals [Multivitamin With Minerals] 1 tab PO DAILYCM #30 tab 11/11/17Thiamine HCl [B-1] 100 mg PO DAILY #30 tab 11/11/ollowing Prescrptions Were Given to Patient:Folic Acid 1 mg PO DAILY@0800 #30 tabMultivitamins,Ther W-Minerals [Multivitamin With Minerals] 1 tab PO DAILYCM #30 tabThiamine HCl [B-1] 100 mg PO DAILY #30 tabPrimary Care Physician:Asya Bolton MD [Primary Care Provider] -Please follow up with your Primary Care Physician in: in 5-7 daysDisposition: HomeMinutes spent on discharge:: 35Patient Condition:: StableMeaningful Use InfoMeaningful Use Diagnoses (Choose all that apply): None applicableCode VisitInpatient E AND M: 74072 Disch Hosp11/11/17 0851 <Electronically signed by Meryl Delong MD>Date Meryl Delong MDCosigner Signature (if applicable): Date CC: Meryl Delong MD; Asya Bolton MD Signed DISCHARGE INSTRUCTION Observed: 11/11/2017 Status: F Source: [place] 8:45 AM [facility] REPOSITORY [facility]ITALMedical Records [address] [place] [address]Vqeqwhruffqd for Home/Discharge Dgdfvqqctkzx84/03/18 0842MR #: [id number] Acct: [id number]: MERYL PANDYA Rep #: [id number]: 1970 47 From: Meryl Delong MDPCP: Asya Bolton MD Status: ADM IN- Discharge DiagnosesCurrent Active Problems:Current Active and Chronic ProblemsThrombocytopenia (Chronic)Anxiety (Acute)Hypoxia (Acute)You will use the following diet at home:: No restrictionsDischarge Activity: May not drive while taking narcotic pain medications.Allergies/Adverse Reactions:Allergiesdiphenhydramine HCl [From Benadryl] Adverse Reaction (Verified 11/08/17 08:28)Swellingmushroom Adverse Reaction ( Verified 11/08/17 08:28)VomitingMedications to take at DischargeDuloxetine Hcl [Cymbalta ] 60 mg PO DAILY 11/08/17olic Acid 1 mg PO DAILY@0800 #30 tab 11/11/17Multivitamins ,Ther W-Minerals [Multivitamin With Minerals] 1 tab PO DAILYCM #30 tab Thiamine HCl [B-1] 100 mg PO DAILY #30 tab 11/11/17The following prescriptions were given: Folic Acid 1 mg PO DAILY@0800 #30 tabMultivitamins,Ther W-Minerals [Multivitamin With Minerals] 1 tab PO DAILYCM #30 tabThiamine HCl [B-1] 100 mg PO DAILY #30 tabPrimary Care Physician:Asya Bolton MD [Primary Care Provider] -Please follow up with your Primary Care Physician in: in 5-7 daysProposed Discharge Date: 11/11/180145 <Electronically signed by Meryl Delong MD>Date Iftikhar Delong [facility]: Asya Bolton MD CBC W/DIFF, AUTOMATED Collected: 11/09/2017 Status: C Source: [place] 5:30 AM [facility] REPOSITORY TYPE CODE TESTS RESULT OUT OF RANGE REFERENCE UNITS LAB L100.1000 Low 4.4-11.0 K/mm3 WBC 3.4 LAB L100.1200 Low 4.6-6.2 M/mm3 RBC 3.77 LAB L100.1300 Low 13.0-16.5 g/dl HGB 12.2 LAB L100.1400 Low 40-54 % HCT 36.5 LAB L100.1500 High 80-94 fL MCV 96.8 LAB L100.1600 High 27.0-32.0 pg MCH 32.4 LAB L100.1700 Normal 32-36 g/gl MCHC 33.4 LAB L100.1810 Normal 11.6-14.6 % RDW 13.6 CV LAB L100.1820 High 35.1-43.9 fl RDW 46.1 SD LAB L100.1900 Low alert 150-450 K/mm3 PLT 48 Result Comment: CRITICAL VALUE VERIFIED. CALLED TO KERRI BENZ11/09/17 0605 Osiris Henriquez.RESULTS READ BACK BY SAME . LAB L100.2000 Normal 6.2-12.0 fl MPV 9.4 LAB L100.2100 Normal 47-70 % NEUT% 49.0 LAB L100.2200 Normal 19-41 % LY% 29.5 LAB L100.2300 High 0-10 % MONO% 15.6 LAB L100.2400 Normal 0-5 % EO% 3.8 LAB L100.2500 High 0-1 % BASO% 1.5 LAB L100.2550 Normal 0.0-0.9 % IM GRAN % 0.600 Result Comment: IG% - Immature Granulocytes (promyelocytes, myelocytes andmetamyelocytes) > 1% indicates that a LEFT SHIFT is Present. LAB L100.2620 Low 2.0-7.7 X10 3/uL Absolute 1.7 Neut LAB L100.2720 Normal 0.83-4.51 X10 3/ul Absolute 1.00 Lymph LAB L100.4500 Normal SMEAR SCAN COMMENT LAB L100.5500 Normal ADEQ PLT EST MKD DEC LAB L100.9900 Normal PATH REV Reviewed Result Comment: Leukopenia, neutropenia and Thrombocytopenia.Clinical correlation necessary.Savage Gregory M.D. 11/09/17 AMENDED REPORT 11/09/17 1315 PATH REV previously reported as: February dennis Performed By: #### L100.0100 ####[facility] [address] [place], [address] BASIC METABOLIC Collected: 11/09/2017 Status: F Source: [place] PROFILE (BMP) 5:30 AM [facility] REPOSITORY TYPE CODE TESTS RESULT OUT OF RANGE REFERENCE UNITS LAB L501.0100 Normal 70-110 mg/dL GLU 103 LAB L501.1000 Normal 7-18 mg/dL BUN 13 LAB L501.1100 Low 0.70-1.30 mg/dL 0.69 CREAT,SERUM Result Comment: The validity of the calculated GFR AND GFRAA in patients over70 years has not been determined. Clinical correlation isessential. LAB L501.1110 Normal >60 mL/min EST GFR 130 Result Comment: Non- GFR Calc LAB L501.1115 Normal >60 mL/min EST GFR - 157 AA Result Comment: GFR Calc LAB L501.1255 Normal ml/min Estimated 140.31 CRCL LAB L501.1300 Normal 10-20 RATIO BUN/CRE 18.9 LAB L501.2200 Low 8.5-10 mg/dL CA 8.2 .1 LAB L501.5300 Normal 136-14 mmol/L NA 136 5 LAB L501.5600 Normal 3.5-5. mmol/L K 4.3 1 Result Comment: Slight Hemolysis, Result may be falsely increased. LAB L501.5900 Normal 98-107 mmol/L CL 98 LAB L501.6100 Normal 21.0-32.0 mmol/L CO2 30.0 LAB L501.6200 Normal 5-15 GAP 8 Performed By: #### L500.2500, L501.5200, L506.0250 ####[facility] [address] [place], [address] MAGNESIUM Collected: 11/09/2017 Status: F Source: [place] 5:30 AM [facility] REPOSITORY TYPE CODE TESTS RESULT OUT OF RANGE REFERENCE UNITS LAB L501.5200 Low 1.6-2.6 mg/dL MG 1.2 Result Comment: Please note revised Magnesium reference range abfaabvgq37/15/2018.Slight Hemolysis, Result may be falsely increased. Performed By: #### L500.2500, L501.5200, L506.0250 ####[facility] [address] [place], [address] FOLATES, (FOLIC ACID) Collected: 11/09/2017 Status: F Source: [place] 5:30 AM [facility] REPOSITORY TYPE CODE TESTS RESULT OUT OF RANGE REFERENCE UNITS LAB L506.0250 Normal 3.1-55.4 ng/mL FOLATES 10.90 Result Comment: Please note revised Folates reference range /14/2017.Slight Hemolysis, Result may be falsely increased. Performed By: #### L500.2500, L501.5200, L506.0250 ####[facility] [address] [place], [address] VITAMIN B12 Collected: 11/09/2017 Status: F Source: [place] 5:30 AM [facility] REPOSITORY TYPE CODE TESTS RESULT OUT OF RANGE REFERENCE UNITS LAB L503.0105 Normal 211-911 pg/mL Vitamin 519 B12 Performed By: #### L503.0105 ####[facility] [address] [place], [address] VITAMIN B1, THIAMINE Collected: 11/09/2017 Status: F Source: [place] 5:30 AM [facility] REPOSITORY TYPE CODE TESTS RESULT OUT OF RANGE REFERENCE UNITS LAB L3300.8000 Normal 66.5-200.0 nmol/L VIT 124.6 B1 Result Comment: This test was developed and its performance characteristicsdetermined by [facility]. It has not been cleared orapproved by the Food and Drug Administration.Performed at: [address] [id number] Director: Shashank Castro MD, Phone: [phone] Performed By: #### L3300.8000 ####[facility] (refer to report for specific site) refer to report for address and phone number HISTORY AND PHYSICAL Observed: 11/08/2017 Status: F Source: [place] EXAM 8:43 PM [facility] REPOSITORY [facility] [address] [address]wn and Ihkdplgh41/31/18 1626MR#: [id number] Acct: [id number]: YAMERYL Rep #: [id number]: 1970 47 From: Isaias Lu PAPCP: Hoang PRICE,Asya Status: ADM IN YLocation: MS2 [id number]<Isaias Lu - Last Filed: 16:26>Problem List(1) Alcohol withdrawalStatus: Acute(2) HypoxiaStatus: Acute(3) HypokalemiaStatus: Chronic(4) ThrombocytopeniaStatus: Chronic(5) Tobacco dependencyStatus: Chronic(6) AnxietyStatus: AcuteHistory of Present IllnessDate of Admission: 11/08/17Chief Complaint: alcohol withdrawalThe patient is a 47 year old M who presented to the ER with a chief complaint of feeling thathe was going to start having alcohol withdrawal and a desire to stop drinking and safely gothrough withdrawal. He stated he felt the usual symptoms of shakiness starting, and was worriedin the past he has had hallucinations and severe tremor. He was found to have abnormal liverfunctions, low platelets, and low potassium in the ER. He was given IV potassium. He wasadmitted to the floor and currently is comfortable and sleepy. He has been through detoxbefore, he cannot remember when the last time was. He started drinking heavily at age 43 aftera divorce. He has been drinking heavily for about 4 weeks now, and reports about 1 liter of lowproof vodka / day and occasionally a beer. He has a medical hx of anxiety for which he takescymbalta and has no recollection of prior liver problems. His oxygenation was low in the ER andhe was placed on nasal cannula, he has no hx asthma or copd and does not use O2 at home but shan smoker. He does not complain of SOB. []Past Medical HistoryPast Medical History (Chronic Problems):Chronic ProblemsThrombocytopenia (Chronic)Hypokalemia (Chronic) Arthritis of left hip (Chronic)Tobacco dependency (Chronic)Allergiesdiphenhydramine HCl [ From Benadryl] Adverse Reaction (Verified 11/08/17 08:28)Swellingmushroom Adverse Reaction (Verified 11/08/17 08:28)VomitingHome Medications:Ambulatory OrdersMedication Instructions RecordedDuloxetine Hcl [Cymbalta] 60 mg PO DAILY 11/08/17urgical History: tonsillectomyPsychiatric History: No pertinent psych hxLives: AloneSmoking Status: Current every day smokerTobacco Use: CigarettesAlcohol: HeavyDrugs: None- *Family History SiblingHistory Items: No pertinent history* * MaternalHistory Items: Hypertension PaternalHistory Items: No pertinent historyReview of SystemsConstitutional: Reports: Fatigue. Denies: Chills, Fever, Weight ChangeHEENT: Denies: Head Aches, Sinus Congestion, Sinus DrainageCardiovascular: Denies: Chest Pain, PalpitationsRespiratory: Denies: Cough, Shortness of breath at rest, Sputum productionGastrointestinal: Denies: Abdominal Pain, Nausea, VomitingGenitourinary: Denies: DysuriaMusculoskeletal: Denies: Joint Pain, Joint TendernessSkin: Denies: Rash, WoundsNeurological: Denies: Numbness, Tingling, Focal weaknessPsychiatric: Denies: Anxiety, Depression, Homicidal Ideations, Suicidal IdeationsHematologic/ Lymphatic: Denies: Easy Bruising, Easy BleedingVTE Information - Inpt OnlyVTE Present on Admission: NoVTE Mechan Device Prophylaxis: SCD'sVTE Pharm Prophylaxis ordered?: NoReason prophylaxis not ordered:: Medical ContraindicationPatient Problems:Active and Suspected ProblemsAnxiety (Acute)Hypoxia (Acute)- Physical ExamGeneral: Alert, Oriented x3, CooperativeHEENT: Atraumatic, PERRLA, EOMI, NormocephalicNeck: Supple, No JVD, Negative Carotid BruitsLungs: Clear to auscultation, Normal air movementCardiovascular: Regular rate, No murmursAbdomen: Bowel Sounds Present, Soft, Non TenderExtremities: No edema, Capillary Refill Less than 3 SecondsSkin: No rashes, No breakdownMusculoskeletal: No Tenderness to Palpation of Joints or ExtremitiesNeurological: Cranial nerves II -XII grossly intact, - - fine tremor in hands, no asterixis.Psych/Mental Status: Normal Affect, Appropriate, Alert and oriented to time, place, person,mood and affectVital SignsTemp Pulse Resp BP Pulse Ox96.9 F L 87 16 116/85 H 15:38 15:38 11/08/17 15:38 11/08/17 15:38 11/08/17 15:38Oxygen Flow Rate 4.5Oxygen Delivery Method Nasal CannulaWeight: 76.6 kgBody Mass Index (BMI) 21.1Assessment/PlanActive and Suspected ProblemsAnxiety (Acute)Hypoxia (Acute)1. Acute alcohol intoxication with withdrawal - current primary symptoms is tremor. Drinks 1liter low proof vodka / day. Alcoholic since 43. Plan at [place] is to get a private counselor. Doesnot want to do AA - makes him depressed. Start CIWA protocol with librium, ativan, folate,thiamine, multivitamin, and medical stabilization protocol. Check mag phos. K+ repleted. Watchfor hallucinations (hx). Drug screen otherwise negative. Alcohol level severely elevated at 391at admission.2. Acute hypoxia - lungs are clear. stable on 2 lpm. Wean as tolerated and start incentivespirometer. No complaints of SOB.3. Nicotine abuse - Path4. Elevated LFTs - no prior hx. Will need w/u as outpatient, likely has liver damage.5. Thrombocytopenia - likely 2/2 alcoholism. No heparin products6. Anxiety - continue cymbalta7. Hypokalemia - repleted, check mag/phos, recheck in AM.DVT ppx: SCDsDC planning: upon completion of stabilization program, outpatient counsellingThis patient was seen by Isaias Lu PA-C under the supervision of Doctor Palacios.<Huber Palacios - Last Filed: 11/08/17 20:42>History of Present IllnessSeen and examined.Patient is admitted for acute alcohol withdrawal. He has history of multiple recurrentadmission for alcohol withdrawal . Denies recent seizure or hallucination.[]Past Medical HistoryAllergiesdiphenhydramine HCl [ From Benadryl] Adverse Reaction (Verified 11/08/17 08:28)Swellingmushroom Adverse Reaction (Verified 11/08/17 08:28)Vomiting- Physical ExamGeneral: Alert, Oriented x3, CooperativeNeck: SuppleLungs: Clear to auscultation, Normal air movementCardiovascular: Regular rate, Normal R6Yydirdv: Bowel Sounds Present, SoftNeurological: Neuro grossly intact, -Vital SignsTemp Pulse Resp BP Pulse Ox96.9 F L 87 16 116/85 H 15:38 11/08/17 15:38 11/08/17 15:38 11/08/17 15:38 11/08/17 15:38Oxygen Flow Rate 4.5Oxygen Delivery Method Nasal CannulaWeight: 168 lb 13.985 ozBody Mass Index ( BMI) 21.1Intake and Output for Last 24 HoursIntake Total 346 / 346Balance 346 / 346Assessment/PlanThis patient was seen in conjunction with Isaias CALLAHAN. I have independently interviewed andexamined the patient and reviewed pertinent history, examination findings, laboratory and planof management. I have reviewed the note and agree with the documented findings with the fewadditional points.In brief, patient is admitted for acute alcohol withdrawal with intoxication. Patient is onstabilization as per [facility] program.I have discussed my assessment with Isaias CALLAHAN and orders have been reviewed.Code VisitInpatient E AND M: 25811 Init Hosp L311/08/17 1639 <Electronically signed by Isaias CALLAHAN>Date ___ Isaias CALLAHAN11/08/17 204< Electronically signed by Huber Palacios MD>Cosigner Signature: Date (if applicable) Huber Palacios MDCC: SINDY Lu; Asya Bolton MD; Huber Palacios MD Signed EMERGENCY DEPARTMENT Observed: 11/08/2017 Status: F Source: [place] SUMMARY 5:15 PM [facility] REPOSITORY [facility]ITALMedical Records [address] [place] [address]Zsohftrpw Department Ayvmjid73/31/18 0842MR#: [id number] Acct: [id number]: MERYL PANDYA Rep #: [id number]: 1970 47 From: Sandra Aguila MDPCP: Asya Bolton MD Status: ADM IN- ER Visit SummaryDate of Service: 11/08/17Chief Complaint: Alcohol withdrawalHistory of Present Illness: The patient is a 47 M presenting stating that he feels he is goinginto alcohol withdrawal. His last drink was 1 hour prior to arrival. He states he drinks aliter of vodka per day. He has been drinking heavily for the past 2 weeks. He has a historyof previous DTs. He states when he goes through withdrawal he starts with havinghallucinations. He is requesting detox. He has had detox in the past but does not recall hislast detox admission.Physical Examination: Vitals are stable. Patient is afebrile. Alert no acute distress.HEENT exam is unremarkable.Neck is supple.Lungs are clear and equal bilaterally.Heart is regular and tachycardicAbdomen is soft nontender nondistended.Extremities are unremarkable.Skin is warm and dry.Remainder of exam is unremarkable.Emergency Department Course and Treatment: Patient is given IV fluids, Zofran, Ativan. EKG issinus rate of 87. CBC is normal except for platelets 62. Chemistries normal except forpotassium 3.3. ALT 106, AST 134. INR is normal. Alcohol level 391. Drug screen is negative.Patient was evaluated by [facility] in the emergency department. Patient is tachycardic andhas history of previous DTs. He will be admitted medically and followed by [facility] in thehospital. Discussed with Dr. Palacios.Disposition: AdmissionImpression: Alcohol withdrawalThis note was generated with [employer] dictation software. It may contain incorrect words,spelling, and punctuation that were not noted in review of the chart prior to signingED Disposition- Plan for ED Patient:Chief Complaint: Subst AbuseReferrals:Asya Bolton MD [Primary Care Provider] -What to do if you have ProblemsFor any increased pain, shortness of breath, bleeding, nausea or vomiting, chest pain, or anyunexpected problems, contact your Primary Care Provider. Call [facility] ([phone])or report to the closest Emergency Room.Call 911 if necessary.11/08/17 5605 <Electronically signed by Sandra Aguila MD>Date Sandra Aguila MDCosigner Signature (If Indicated): Date CC: Asya Bolton MD URINE DRUG SCREEN Collected: 11/08/2017 Status: F Source: [place] (VISTA) 10:00 AM [facility] REPOSITORY Order Comment: Order Date: 11/08/17 TYPE CODE TESTS RESULT OUT OF RANGE REFERENCE UNITS LAB L505.0075 Normal TO BE CONFIRMED Result Comment: CONFIRMATORY TESTING FOR ALL POSITIVE URINE DRUG SCREENRESULTS WILL ONLY BE SENT OUT UPON PHYSICIAN ORDER.VISTA Urine Drug Screen methods provide only preliminaryanalytical test results. A more specific alternate chemicalmethod must be used in order to obtain a confirmedanalytical result. Gas chromatography/mass spectrometery(GC/MS) is the preferred confirmatory method. Clinicalconsideration and professional judgement should be appliedto any drug of abuse test result, particularly whenpreliminary positive results are used.URINE TCA TESTING MUST BE ORDERED SEPARATELY. USE TESTMNEMONIC: [facility] LAB L505.5005 Normal VISTA UDS PH 6 LAB L505.5015 Normal <1000 AMPHETAMINES NEGATIVE ng/mL LAB L505.5025 Normal < 200 BARBITIURATES NEGATIVE ng/mL LAB L505.5035 Normal < 200 BENZODIAZIPINE NEGATIVE ng/mL LAB L505.5045 Normal < 300 COCAINE NEGATIVE ng/mL LAB L505.5055 Normal < 500 ECSTACY NEGATIVE ng/mL LAB L505.5065 Normal < 300 METHADONE NEGATIVE ng/mL LAB L505.5075 Normal < 300 OPIATES NEGATIVE ng/mL LAB L505.5085 Normal < 25 PCP NEGATIVE ng/mL LAB L505.5095 Normal < 50 THC NEGATIVE ng/mL Performed By: #### L505.5000 ####[facility] [address] [place], [address] CBC W/DIFF, AUTOMATED Collected: 11/08/2017 Status: F Source: YASH 8:54 AM [facility] REPOSITORY TYPE CODE TESTS RESULT OUT OF RANGE REFERENCE UNITS LAB L100.1000 Normal 4.4-11.0 K/mm3 WBC 4.7 LAB L100.1200 Low 4.6-6.2 M/mm3 RBC 4.40 LAB L100.1300 Normal 13.0-16.5 g/dl HGB 14.5 LAB L100.1400 Normal 40-54 % HCT 41.7 LAB L100.1500 High 80-94 fL MCV 94.8 LAB L100.1600 High 27.0-32.0 pg MCH 33.0 LAB L100.1700 Normal 32-36 g/gl MCHC 34.8 LAB L100.1810 Normal 11.6-14.6 % RDW 14.0 CV LAB L100.1820 High 35.1-43.9 fl RDW 48.7 SD LAB L100.1900 Low 150-450 K/mm3 PLT 62 LAB L100.2000 Normal 6.2-12.0 fl MPV 9.3 LAB L100.2100 Low 47-70 % NEUT% 25.1 LAB L100.2200 High 19-41 % LY% 51.4 LAB L100.2300 High 0-10 % MONO% 15.7 LAB L100.2400 High 0-5 % EO% 5.9 LAB L100.2500 High 0-1 % BASO% 1.5 LAB L100.2550 Normal 0.0-0.9 % IM 0.400 GRAN % Result Comment: IG% - Immature Granulocytes (promyelocytes, myelocytes andmetamyelocytes) > 1% indicates that a LEFT SHIFT is Present. LAB L100.2620 Low 2.0-7.7 X10 3/uL Absolute Neut 1.2 LAB L100.2720 Normal 0.83-4.51 X10 3/ul Absolute Lymph 2.42 Performed By: #### L100.0100 ####[facility] [address] [place], [address] PROTHROMBIN TIME W/INR Collected: 11/08/2017 Status: F Source: YASH 8:54 AM [facility] REPOSITORY TYPE CODE TESTS RESULT OUT OF RANGE REFERENCE UNITS LAB L300.4150 Normal 11.7-14.9 SECONDS PROTIME 13.0 LAB L300.4200 Normal INR 1.0 Performed By: #### L300.3900 ####[facility] [address] [place], [address] BASIC METABOLIC Collected: 11/08/2017 Status: F Source: YASH PROFILE (BMP) 8:54 AM [facility] REPOSITORY TYPE CODE TESTS RESULT OUT OF RANGE REFERENCE UNITS LAB L501.0100 Normal 70-110 mg/dL GLU 87 LAB L501.1000 Normal 7-18 mg/dL BUN 9 LAB L501.1100 Normal 0.70-1.30 mg/dL 0.75 CREAT,SERUM Result Comment: The validity of the calculated GFR AND GFRAA in patients over70 years has not been determined. Clinical correlation isessential. LAB L501.1110 Normal >60 mL/min EST GFR 117 Result Comment: Non- GFR Calc LAB L501.1115 Normal >60 mL/min EST GFR - 142 AA Result Comment: GFR Calc LAB L501.1255 Normal ml/min Estimated 129.18 CRCL LAB L501.1300 Normal 10-20 RATIO BUN/CRE 12.0 LAB L501.2200 Normal 8.5-10 mg/dL CA 8.7 .1 LAB L501.5300 Normal 136-14 mmol/L NA 141 5 LAB L501.5600 Low 3.5-5. mmol/L K 3.3 1 LAB L501.5900 Normal 98-107 mmol/L CL 101 LAB L501.6100 Normal 21.0-3 mmol/L CO2 30.0 2.0 LAB L501.6200 Normal 5-15 GAP 10 Performed By: #### L500.2500, L500.3400 ####[facility] [address] [place], [place], [address] LIVER PROFILE Collected: 11/08/2017 Status: F Source: KEVIN 8:54 AM [facility] REPOSITORY TYPE CODE TESTS RESULT OUT OF RANGE REFERENCE UNITS LAB L501.1500 High 6.4-8.2 g/dL T 8.5 PROT LAB L501.1800 Normal 3.2-5.0 g/dL ALB 4.5 LAB L501.1950 Normal 2.2-4.2 g/dL GLOB 4.0 LAB L501.4100 High 15-37 U/L AST 134 LAB L501.4305 Normal 45-117 U/L ALK P 86 LAB L501.4405 High 16-61 U/L ALT 106 Result Comment: Please note revised ALT reference range /28/2018. LAB L501.4600 Normal 0.20-1.00 mg/dL T BILI 0.40 LAB L501.4700 Normal 0.00-0.30 mg/dL D BILI 0.21 Performed By: #### L500.2500, L500.3400 ####[facility] [address] [facility] [address] [place], [place], [address] ALCOHOL, BLOOD Collected: 11/08/2017 Status: F Source: KEVIN (MEDICAL)-SERUM 8:54 AM [facility] REPOSITORY TYPE CODE TESTS RESULT OUT OF RANGE REFERENCE UNITS LAB L501.9100 High alert mg/dL SERUM 391.0 ETOH Result Comment: Critical Result(s) Called to [facility] at: 09:45:46011/08/2017 by: CCrytzerThe serum:whole blood ethanol ratio is approximately 1.14and varies slightly with hematocrit.Medical Alcohol reference interval and critical value innon- tolerant individuals; 50 - 100 Impairment 100 Intoxication 100 - 250 Severe Poisoning 250 - 400 Deep/possible fatal coma Performed By: #### L501.9100 ####[facility] [address] [facility] [address] [place], [place], [address] PHOSPHORUS Collected: 11/08/2017 Status: F Source: KEVIN 8:54 AM [facility] REPOSITORY Order Comment: Comments: ok to add on TYPE CODE TESTS RESULT OUT OF RANGE REFERENCE UNITS LAB L501.2300 Normal 2.5-4.9 mg/dL PHOS 4.1 Performed By: #### L501.2300, L501.5200 ####[facility] [address] [place], [address] MAGNESIUM Collected: 11/08/2017 Status: F Source: YASH 8:54 AM [facility] REPOSITORY Order Comment: Comments: ok to add on TYPE CODE TESTS RESULT OUT OF RANGE REFERENCE UNITS LAB L501.5200 Normal 1.6-2.6 mg/dL MG 1.6 Result Comment: Please note revised Magnesium reference range xvjzadcgw63/15/ 2018. Performed By: #### L501.2300, L501.5200 ####[facility] [address] [place], [address] DISCHARGE INSTRUCTION Observed: 05/26/2017 Status: F Source: YASH 3:19 PM [facility] REPOSITORY [facility] [address] [place], [place] [address]Wolcgbnpk Pnhsbezhfsk43/18/17 1518MR#: [id number] Acct: [id number]: MERYL PANDYA Rep #: [id number]: 1970 46 From: Evaristo Shay MDPCP: Sabine Badillo MD Status: PRE ERED Disposition- Plan for ED Patient:Disposition: Home or Assisted LivingChief Complaint: BiteDiagnosis:Insect stingInstructions: ED Bite Sting Insect Gen Allergic ReactPrescriptions:Hydrocortisone 1% Crm [Hytone] 1 applic TOPICAL BID #1 tubeReferrals:Sabine Badillo MD [Primary Care Provider] -What to do if you have ProblemsFor any increased pain, shortness of breath, bleeding, nausea or vomiting, chest pain, or anyunexpected problems, contact your Primary Care Provider. Call [facility] ([phone])or report to the closest Emergency Room.Call 911 if necessary.05/26/17 1519 <Electronically signed by Evaristo Shay MD>Date Evaristo Shay [facility] LINDSAYosign Signature (If Indicated): Date CC: Sabine Badillo MD EMERGENCY DEPARTMENT Observed: 05/26/2017 Status: F Source: KEVIN SUMMARY 3:18 PM [facility] REPOSITORY [facility]ITALMedical Records [address] [place] [address]Reazimxht Department Mmefbzv71/18/17 1516MR#: [id number] Acct: [id number]: YAMERYL Steven Rep #: [id number]: 1970 46 From: Evaristo Shay MDPCP: Sabine Badillo MD Status: PRE ER- ER Visit SummaryDate of Service: 05/26/17Chief Complaint: Foot insect stingHistory of Present Illness: The patient is a 46 M who was stung on the left foot with an insectyesterday. He states it is red and swollen. Hurts to walk. There is warmth. Denies fever.He states there is been some drainage. He states he has been using a poultice of baking sodaand water on the foot.Physical Examination: Vital signs reviewed. Patient afebrile. Left foot exam reveals anoticeable bite to the distal dorsal part of the left foot. There is some surroundingerythema. There is no lymphangitic streaking. It is not tender. There is some mild localizedswelling. No pain to palpation or pain with range of motionTest Results:Emergency Department Course and Treatment: Patient will be treated with a local steroid cream.He will ice and elevate it when he is not walking. It does not appear to be infected and doesnot appear to be cellulitic area there is no purulent drainage. He will follow-up as neededTreatment Plan: Home with hydrocortisone creamDisposition: DischargeImpression: Left foot insect stingED Disposition- Plan for ED Patient:Chief Complaint: BiteReferrals:Sabine Badillo MD [Primary Care Provider] -What to do if you have ProblemsFor any increased pain, shortness of breath, bleeding, nausea or vomiting, chest pain, or anyunexpected problems, contact your Primary Care Provider. Call [facility] )or report to the closest Emergency Room.Call 911 if necessary.05/26/17 1518 <Electronically signed by Evaristo Shay MD>Date Evaristo Shay MDCosigner Signature (If Indicated): Date CC: Sabine Badillo MD DISCHARGE SUMMARY Observed: 02/25/2017 Status: F Source: KEVIN 5:39 PM [facility] REPOSITORY [facility]ITAL[facility] [address] [place], [place] [address]Kpgyvfdqh Hzevopu54/20/17 1737MR#: [id number] Acct : [id number]: MERYL PANDYA Rep #: [id number]: 1970 46 From: Malvin Will DOPCP: Hoang PRICE,Asya Status: DIS IN YLocation : MS2 [id number] Date and DiagnosisDate of Admission: 01/31/17Date of Discharge : 02/03/17- Primary Discharge Diagnosis#1 acute alcohol withdrawal#2 alcoholism#3 depression- Secondary Discharge DiagnosisChronic ProblemsArthritis of left hip (Chronic)Hypokalemia (Chronic)Tobacco dependency (Chronic)Hospital Course and TreatmentOperations: NoneProcedures: NoneSummary of Care Provided:The patient is a 46 year old M was admitted directly to [facility] to into the medicalstabilization program for alcohol withdrawal. Orders were entered using the medicalstabilization program orders, no major complications were encountered during the patient'shospital visit. On 02/03/17, patient was seen and examined felt in stable condition fordischarge homeDischarge Diet: No RestrictionsDischarge Activity: Return to Normal ActivityWeight Bearing Status: Full weight bearingHome Medications:Medications to take at DischargeMultivitamins,Ther W-Minerals [Multivitamin With Minerals] 1 tablet PO DAILYCM #30 tablet 04/13/16Duloxetine Hcl [Cymbalta] 60 mg PO DAILY #30 capsule. 02/03/17Following Prescrptions Were Given to Patient:Duloxetine Hcl [Cymbalta] 60 mg PO DAILY #30 capsule.drPrimary Care Physician:Asya Bolton MD [Primary Care Provider] -Please follow up with your Primary Care Physician in: in 1-2 weeksPlease Follow Up With: counseling as directedDisposition: HomeMinutes spent on discharge:: 25Patient Condition:: StableMeaningful Use InfoMeaningful Use Diagnoses (Choose all that apply): None qqgdiupgjr49/20/17 1739 <Electronically signed by Malvin Will DO>Date Malvin Will DOCosigner Signature (if applicable): Date CC: Asya Bolton MD; Malvin Will DO Signed DISCHARGE INSTRUCTION Observed: 02/03/2017 Status: F Source: KEVIN 2:44 PM [facility] REPOSITORY [facility]ITALMedical Records [address] [place], [place] [address]Tycwnljggvzz for Home/Discharge Zafehximurol88/28/17 1442MR #: [id number] Acct: [id number]: MERYL PANDYA Rep #: [id number]: 1970 46 From: Malvin Will DOPCP: Asya Bolton MD Status: ADM INDischarge Diet: No RestrictionsDischarge Activity: Return to Normal ActivityWeight Bearing Status: Full weight bearingAllergies/Adverse Reactions:Allergiesdiphenhydramine HCl [From Benadryl] Adverse Reaction ( Verified 01/31/17 12:05)Swellingmushroom Adverse Reaction (Verified 01/30/17 19:11)VomitingMedications to take at DischargeMultivitamins,Ther W-Minerals [Multivitamin With Minerals] 1 tablet PO DAILYCM #30 tablet 04/13/16Duloxetine Hcl [Cymbalta] 60 mg PO DAILY #30 capsule. 02/03/17The following prescriptions were given:Duloxetine Hcl [Cymbalta] 60 mg PO DAILY #30 capsule.Prwalker [facility] Care Physician:Asya Bolton MD [Primary Care Provider] -Please follow up with your Primary Care Physician in: in 1-2 weeksPlease Follow Up With: counseling as / 28/17 1444 <Electronically signed by Malvin Will DO>Date Malvin Will DOCC: Asya Bolton MD EMERGENCY DEPARTMENT Observed: 02/01/2017 Status: F Source: KEVIN SUMMARY 3:38 PM [facility] REPOSITORY [facility]ITALMedical Records [address] [place], [place] [address]Mcaryjwlx Department SummaryMR#: [id number] Acct: [id number]: MERYL PANDYA Rep #: [id number]: 1970 46 From: Travis Norris MDPCP: Asya Bolton MD Status: DEP ERDATE OF SERVICE: 01/30/2017METHOD OF ARRIVAL:Private car.CHIEF COMPLAINT:Alcohol withdrawal.HISTORY OF PRESENT ILLNESS:A 46-year-old male patient of Dr. Asya Bolton, reports that he went through detoxapproximately 3 months ago. States that he really last began drinking again approximately1 month ago. He is drinking a bottle of diluted vodka a day, when he shows the size ofthis, it appears that it is probably a fifth of vodka, reports that his last drink was atnoon today and that he had beer.The patient reports that he feels shaky, clammy, his hands are sweaty and he feels anxioussimilar to when he has been in withdrawal before.REVIEW OF SYSTEMS:Otherwise negative.PHYSICAL EXAMINATION:GENERAL: Reveals alert male in no acute distress.VITAL SIGNS: 98.9, 130/95, heart rate 117, but repeat heart rate of 70, respiratory rate16. He is 99% on room air. He is not hypoxic.HEART: Significant physical exam findings include the cardiovascular exam, which shows atachycardic, regular rhythm with no murmur.RESPIRATORY: Clear to auscultation bilaterally.ABDOMEN: Benign. Soft, nontender, nondistended with normal bowel sounds.The remainder of physical exam is unremarkable. Please see T-sheet for details.TEST RESULTS:The patient had a CBC that is remarkable for platelets of 115. Chem-7 is remarkable forcreatinine of 0.7. He had a blood alcohol level is 69.EMERGENCY DEPARTMENT COURSE:The patient treated with Ativan IV, Zofran IV, Librium p.o.TREATMENT PLAN:[facility] is not open at this time of night.TREATMENT PLAN:I discussed the patient with Dr. Mykel Veliz. He has not meet objective criteria foralcohol withdrawal at this time. He will be discharged after a dose of Librium here,given a dose of Librium to take at 4:00 in the morning and [facility].DISPOSITION:Home, stable condition.IMPRESSION:Alcohol abuse.JOAQUIM Coon C: Asya Bolton MDT: NTSJOB: [id number] <Electronically signed by Travis Norris MD>Date Travis Norris [facility] LINDSAYosigner Signature (If Indicated): Date CC: Asya Bolton MD Date Dictated: 01/31/1718Date Transcribed: 01/31/1718Transcriptionist:Signed HISTORY AND PHYSICAL Observed: 01/31/2017 Status: F Source: KEVIN EXAM 12:09 PM [facility] REPOSITORY [facility]ITAL[facility] [address] [address]Vdapgfs and Nppkiggn58/25/17 1158#: [id number] Acct: [id number]: MERLY PANDYA Rep #: [id number]: 1970 46 From: Malvin Will DOPCP: Asya Bolton MD Status: ADM IN YLocation : MS2 [id number] List(1) Alcohol withdrawalStatus: AcuteQualifiers:Complication of substance-induced condition: uncomplicated Qualified Code(s): F10.230 - Alcohol dependence with withdrawal, uncomplicatedHistory of Present IllnessDate of Admission: 01/31/17Chief Complaint: Alcohol withdrawalThe patient is a 46 year old M who was admitted to [place] [address] as a direct admission into [facility] stabilization program for alcohol withdrawal. Patient has not had anything to drinksince yesterday afternoon, he usually drinks approximately 1/5 of vodka a day and when he doesnot have vodka he drinks beer. Patient has been through alcohol detox twice before, he statesthat he does not have good results with AA. Patient is currently complaining of shakes , clammyfeeling, diaphoresis, nausea, and anxiety symptoms. Patient has had a history of seizuresbefore when he is gone through alcohol withdrawal, he is currently on no medications at thepresent time. Other medical problems in the past include depression, patient states that hewas prescribed an antidepressant but never took it because he was worried about side effects.Past Medical HistoryPast Medical History (Chronic Problems):Chronic ProblemsArthritis of left hip (Chronic)Hypokalemia (Chronic)Tobacco dependency (Chronic)Allergiesdiphenhydramine HCl [From Benadryl] Allergy (Verified 01/30/17 19:11)Swellingmushroom Adverse Reaction (Verified 19:11)VomitingHome Medications:Ambulatory OrdersMedication Instructions RecordedMultivitamins,Ther W-Minerals 1 tablet PO DAILYCM #30 tablet 04/13/16[Multivitamin With Minerals]Potassium Chloride [K- Dur] 40 meq PO DAILY #60 tablet 12/19/16Surgical History: tonsillectomyPsychiatric History: No pertinent psych hxLives: AloneSmoking Status: Current every day smokerTobacco Use: CigarettesAlcohol: HeavyDrugs: None- *Family History SiblingHistory Items: No pertinent history MaternalHistory Items: Hypertension PaternalHistory Items: No pertinent historyReview of SystemsConstitutional: Reports: Malaise, Fatigue. Denies: Anorexia, Chills, Fever, Night Sweats,Weakness, Weight ChangeEyes: Denies: Blurred vision, Cataracts, Conjunctivae Inflammation, Double vision, Drainage,Eyelid InflammationHEENT: Denies: Difficulty Hearing, Difficulty Swallowing, Dysphasia, Ear Pain, Eye Pain, Hardof Hearing, Head Aches, Hearing Changes, Nasal bleeding, Nasal Congestion, Post Nasal Drip,Sinus Congestion, Sinus Drainage, Sore ThroatCardiovascular: Denies: Chest Pain, Claudication, Chest Pressure, Chest Tightness, Edema,Heaviness, Light Headedness, Orthopnea, Palpitations, Paroxysmal Noc. DyspneaRespiratory: Denies: Cough, Hemoptysis, Pleuritic Pain, Shortness of Breath, Shortness ofbreath at rest, Shortness of breath upon exertion, Sputum production, WheezingGastrointestinal: Reports: Nausea. Denies: Abdominal Pain, Constipation, Diarrhea, Dyspepsia,Hematemesis, Hematochezia, Melena, VomitingGenitourinary: Denies: Dysuria, Frequency, Hematuria, Hesitancy, Incontinence, Nocturia,UrgencyMusculoskeletal: Denies: Arm Pain, Back Pain, Foot Pain, Joint Pain, Joint stiffness, Jointswelling, Joint Tenderness, Neck Pain, Shoulder PainSkin: Denies: Dryness, Jaundice, Pruritis, Rash, WoundsNeurological: Reports: Balance problems, - - Patient complains of shakes. Denies: Blurredvision, Double vision, Slurred speech, Confusion, Difficulty swallowing, Focal weakness,Headaches, Incoordination, Numbness, TinglingPsychiatric: Reports: Anxiety, Depression. Denies: Homicidal Ideations, Suicidal IdeationsEndocrine: Denies: Change in Body Habitus, Heat/ Cold Intolerance, Polydipsia, Polyuria, Hx ofIrradiationHematologic/ Lymphatic: Denies: Adenopathy, Anemia, Easy Bruising , Easy Bleeding, Petechiae,PurpuraVTE Information - Inpt OnlyVTE Present on Admission : NoVTE Mechan Device Prophylaxis: NoneVTE Pharm Prophylaxis ordered?: NoReason prophylaxis not ordered:: Treatment Not Indicated - low risk fot VTE- Physical ExamGeneral: Alert, Oriented x3, Cooperative, Well developed, Well nourished, - - Patient appearsanxiousHEENT: Atraumatic, PERRLA, EOMI, NormocephalicOral: Moist MucosaNeck: Supple, No JVD, Negative Carotid Bruits, Trachea Midline, Thyroid Normal Size and TextureLungs: Clear to auscultation, Normal air movement, No rhonchi, No wheeze , No ralesCardiovascular: Regular rate, Regular Rhythm, Normal S1, Normal S2, No murmurs, No EctopicActivity, PMI Normal, No rub noted, No GallopAbdomen: Bowel Sounds Present, Soft, Non Tender, Non-Distended, No hernias notedExtremities: No clubbing, No cyanosis, No edema, Capillary Refill Less than 3 SecondsSkin: No rashes, No breakdownMusculoskeletal: No Tenderness to Palpation of Joints or Extremities, No Muscle WastingNeurological: Cranial nerves II-XII grossly intact, Neuro grossly intact, Muscle tone normal,Sensory exam intact to light touch and pain, Coordination normalPsych/Mental Status: Appropriate, Anxious, Flat Affect, Restless, - - Patient appears shaky, heis alert and oriented 3Finger Stick Blood Glucose 120Assessment/Plan#1 acute alcohol withdrawal-patient will be admitted into the medical stabilization program,medical stabilization order sets were used, I do not feel the patient needs seizure precautionsas he will be on benzodiazepines for alcohol withdrawal.#2 depression-patient has agreed to start on an antidepressant, I recommended Cymbalta and willstart this at 30 mg daily.01/31/17 1209 <Electronically signed by Malvin Will DO>Date Malvin Will DOCosigner Signature (if applicable): Date CC: Asya Bolton MD; Malvin Will DO Signed DISCHARGE INSTRUCTION Observed: 01/31/2017 Status: F Source: YASH 12:40 AM [facility] REPOSITORY [facility] [address] [address]Uouxpmgjh Kthfzkvzqbb65/24/17 2155MR#: [id number] Acct: [id number]: MERYL PANDYA Rep #: [id number]: 1970 46 From: Travis Norris MDPCP: Asya Bolton MD Status: DEP ERED Disposition- Plan for ED Patient:Chief Complaint: Subst AbuseInstructions: ED Withdrawal AlcoholReferrals:Asya Bolton MD [Primary Care Provider] - 1 Day for another examAdditional Instructions:Follow up with [facility] tomorrow for further treatment.What to do if you have ProblemsFor any increased pain, shortness of breath, bleeding, nausea or vomiting, chest pain, or anyunexpected problems, contact your Primary Care Provider. Call [facility] ([phone])or report to the closest Emergency Room.Call 911 if necessary.01/31/17 0040 <Electronically signed by Travis Norris MD>Date Travis Norris MDCosigner Signature (If Indicated): Date CC: Asya Bolton MD ALCOHOL, BLOOD Collected: 01/30/2017 Status: F Source: YASH (MEDICAL)-SERUM 8:10 PM [facility] REPOSITORY TYPE CODE TESTS RESULT OUT OF RANGE REFERENCE UNITS LAB L501.9100 Normal mg/dL SERUM 69.0 ETOH Result Comment: The serum:whole blood ethanol ratio is approximately 1.14and varies slightly with hematocrit.Medical Alcohol reference interval and critical value innon-tolerant individuals; 50 - 100 Impairment 100 Intoxication 100 - 250 Severe Poisoning 250 - 400 Deep/possible fatal coma Performed By: #### L501.9100 ####[facility] [address] [place], [address] BASIC METABOLIC Collected: 01/30/2017 Status: F Source: YASH PROFILE (BMP) 8:10 PM [facility] REPOSITORY Order Comment: REDRAW. PREVIOUS SPECIMEN REJECTED DUE TOHEMOLYSIS. 01/30/171999. TYPE CODE TESTS RESULT OUT OF RANGE REFERENCE UNITS LAB L501.0100 Normal 70-110 mg/dL GLU 75 LAB L501.1000 Normal 7-18 mg/dL BUN 11 LAB L501.1100 Low 0.70-1.30 mg/dL 0.47 CREAT,SERUM Result Comment: The validity of the calculated GFR AND GFRAA in patients over70 years has not been determined. Clinical correlation isessential. LAB L501.1110 Normal >60 mL/min EST GFR 202 Result Comment: Non- GFR Calc LAB L501.1115 Normal >60 mL/min EST GFR - 245 AA Result Comment: GFR Calc LAB L501.1255 Normal ml/min Estimated 197.31 CRCL LAB L501.1300 High 10-20 RATIO BUN/CRE 23.4 LAB L501.2200 Normal 8.5-10 mg/dL CA 8.5 .1 LAB L501.5300 Normal 136-14 mmol/L NA 139 5 LAB L501.5600 Normal 3.5-5. mmol/L K 4.0 1 Result Comment: Moderate Hemolysis, Result may be falsely increased. LAB L501.5900 Normal 98-107 mmol/L CL 101 LAB L501.6100 Normal 21.0-32.0 mmol/L CO2 26.0 LAB L501.6200 Normal 5-15 GAP 12 Performed By: #### L500.2500, L501.5200 ####[facility] [address] [place], [address] MAGNESIUM Collected: 01/30/2017 Status: F Source: YASH 8:10 PM [facility] REPOSITORY Order Comment: REDRAW. PREVIOUS SPECIMEN REJECTED DUE TOHEMOLYSIS. 01/30/171999. TYPE CODE TESTS RESULT OUT OF RANGE REFERENCE UNITS LAB L501.5200 Normal 1.8-2.4 mg/dL MG 1.8 Result Comment: Moderate Hemolysis, Result may be falsely increased. Performed By: #### L500.2500, L501.5200 ####[facility] [address] [place], [place], [address] CBC W/DIFF, AUTOMATED Collected: 01/30/2017 Status: F Source: KEVIN 7:25 PM [facility] REPOSITORY TYPE CODE TESTS RESULT OUT OF RANGE REFERENCE UNITS LAB L100.1000 Normal 4.4-11.0 K/mm3 WBC 6.2 LAB L100.1200 Low 4.6-6.2 M/mm3 RBC 4.57 LAB L100.1300 Normal 13.0-16.5 g/dl HGB 15.3 LAB L100.1400 Normal 40-54 % HCT 45.0 LAB L100.1500 High 80-94 fL MCV 98.5 LAB L100.1600 High 27.0-32.0 pg MCH 33.5 LAB L100.1700 Normal 32-36 g/gl MCHC 34.0 LAB L100.1810 High 11.6-14.6 % RDW 15.0 CV LAB L100.1820 High 35.1-43.9 fl RDW 53.8 SD LAB L100.1900 Low 150-450 K/mm3 PLT 115 LAB L100.2000 Normal 6.2-12.0 fl MPV 10.2 LAB L100.2100 Normal 47-70 % NEUT% 61.2 LAB L100.2200 Normal 19-41 % LY% 26.2 LAB L100.2300 Normal 0-10 % MONO% 8.7 LAB L100.2400 Normal 0-5 % EO% 2.6 LAB L100.2500 High 0-1 % BASO% 1.1 LAB L100.2550 Normal 0.0-0.9 % IM 0.200 GRAN % Result Comment: IG% - Immature Granulocytes (promyelocytes, myelocytes andmetamyelocytes) > 1% indicates that a LEFT SHIFT is Present. LAB L100.2620 Normal 2.0-7.7 X10 3/uL Absolute Neut 3.8 LAB L100.2720 Normal 0.83-4.51 X10 3/ul Absolute Lymph 1.63 Performed By: #### L100.0100 ####[facility] [id number] Silvia MeadowsJESSIE Lerma, [address] ALLERGIES ALLERGIES DATE TYPE / NAME / CODE REACTION SEVERITY SOURCE CODE 11/08/2017 Drug diphenhydramine Swelling Unknown [place] Allergy/41 HCl/[id number](RXNORM [facility] [id number]) Repository 11/08/2017 Drug mushroom/[id number](R Vomiting Unknown [place] Allergy/41 XNORM) Community [id number]([facility]) Repository 05/26/2017 Drug diphenhydramine Swelling Yash Allergy/41 HCl/[id number](RXNORM Community [id number] [place] [address]) Repository 05/26/2017 Drug mushroom/[id number](R Vomiting [facility] Allergy/41 XNORM) [facility] [id number]([facility]) Repository ENCOUNTERS ENCOUNTERS ADMIT/DISCHARGE ACCOUNT ADMITTING ENCOUNTER LOCATION SOURCE NUMBER CLASS 11/08/2017 [id number] [place], Ambulatory BMSBuilding:B Yash [address] [place] Rep[place] 11/08/2017 [id number] [place], Ambulatory BMSBuilding:B [place] [address] [facility] Repository 11/08/2017 [id number] [facility] [place], Ambulatory BMSBuilding:B Yash 1 [place] [facility] Repository 11/08/2017/ [id number] [facility], Inpatient Yash Yash 8 3 [place] Encounter [facility] ing:IZ9Targ: Repository [id number]: 1 11/08/2017 [id number] [facility], Ambulatory BMSBuilding:B Yash 4 [place] [facility] Repository 05/26/2017/ [id number] Emergency [place] 7 1 [facility] ing:ED Repository 01/31/2017/ [id number] [place], Inpatient [place] 7 7 [place] Encounter [facility] ing:IP8Paiv: Repository [id number]: 1 01/30/2017/ [id number] Emergency [place] Yash 7 0 [facility] ing:ED Repository PAYERS PAYERS ENCOUNTER GUARANTOR PAYER SUBSCRIBER SOURCE 11/08/2017 Meryl [id number] [address] Insurance:PARAMOUNT WiebeDOB: [address] [id number] [address]Rmo: [phone] Number: Repository [phone] () [id number] Date:1214-72-67DZ [address] [place] [id number]: 11/08/2017 Secondary NOT GIVENUNK [place] Insurance:SELF PAY [facility] Number: Effective Repository Date:2017-11-08 11/08/2017 Meryl Hopkinse631 Primary Meryl Harris [address] Insurance:PARAMOUNT WiebeDOB: [address] [id number] [address]Dnp: [phone]) Number: Repository [phone] () [id number] Date:6242-31-86TL [address] [address]KD: 11/08/2017 Secondary NOT GIVENUNK [place] Insurance:SELF PAY [facility] Number: Effective Repository Date:2017-11-08 11/08/2017 Meryl Hopkinse631 Primary [address]yl [address]rios [address] Insurance:PARAMOUNT WiebeDOB: [address] [id number] [address]Xzy: [phone] Number: Repository [phone] () [id number] Date:1332-00-91MN [address] [place] [id number]: 11/08/2017 Secondary NOT GIVENUNK Yash Insurance:SELF PAY [facility] Number: Effective Repository Date:2017-11-08 11/08/2017 Meryl Hopkinse631 Primary [address] Insurance:PARAMOUNT WiebeDOB: [address] [id number] [address]Qpn: [phone]) Number: Repository [phone] () [id number] Date:7224-68-18IF [address] [address]DU: 11/08/2017 Secondary NOT GIVENUNK Yash Insurance:SELF PAY [facility] Number: Effective Repository Date:2017-11-08 11/08/2017 Meryl Harris [id number] Primary Meryl [address] Insurance:PARAMOUNT WiebeDOB: [address], [place] ADVANT[place] [facility] [id number] [address]Wcw: [phone] Number: Repository [phone] () [id number] Date:4288-80-47IR [address] [address]YQ: 11/08/2017 Secondary NOT GIVENUNK Yash Insurance:SELF PAY [facility] Number: Effective Repository Date:2017-11-08 05/26/2017 MERYL Harris [id number] Primary MERYL [address] Insurance:PARAMOUNT WIEBEDOB: [address], [place] [facility] [id number] [id number]: [phone] Number: Repository [phone] () [id number] Date: [address] [place] [id number]: 01/31/2017 MERYL Steven [id number] Primary MERYL [address] Insurance:MEDICAIDPol WIEBEDOB: [address], [place] Number: [id number] [id number]: [phone]) [id number] Repository [phone] () Date:2017-01-31 01/30/2017 MEYRL Steven [id number] Primary MERYL Harris [place] [address] Insurance:MEDICAIDPol WIEBEDOB: [facility] [address] Number: [id number] [address]Ipv: [phone] [id number] Repository [phone] () Date:
--- NOTE | 2017-12-27 04:23 | ED.VISSUMM ---
- ER Visit Summary Date of Service: 12/27/17 Chief Complaint: [Requesting detox] History of Present Illness: The patient is a 47 M [who presents the emergency department requesting detox stating wants to stop using alcohol. States that he is having mild symptoms of withdrawal including shakiness and itching. He drinks a sixpack a day he states his last drink was 2 hours ago. He last went through detox 4 weeks ago. He does have DTs every time he stops drinking. He is on Cymbalta. He does smoke as well. No other substances. Physical Examination: [] Mild tachycardia no acute distress PERRL EOMI MMM NECK supple and nontender, no masses Giller tachycardic rhythm no murmur rub or gallop, no peripheral edema, symmetric radial pulses CTAB no respiratory distress ABDOMEN is soft and nontender, normal bowel sounds, no distension, no rebound or guarding SKIN is warm and dry no rashes Alert and Oriented x3, CN II-XII in tact, no motor or sensory deficits, gait normal mild tremors slightly anxious No lymphadenopathy Test Results: [] Emergency Department Course and Treatment: EKG is sinus tachycardia at a rate of 103 without ischemic changes. Screening labs are significant for platelets of 69 and a potassium of 3.1. Potassium was replaced with 40 mEq in the emergency department. Alcohol level was 0.366 tox was negative. He was given Librium p.o. See was score was 20. He does want inpatient detox. I spoke with the hospitalist who will evaluate the patient in the emergency department. [] Treatment Plan: [] Disposition: [Pending hospitalist evaluation] Impression: [Alcohol dependence] This note was generated with YR.MRKT dictation software. It may contain incorrect words, spelling, and punctuation that were not noted in review of the chart prior to signing ED Disposition - Plan for ED Patient: Disposition: Acute Care Hospital [facility] Chief Complaint: ETOH Intox
--- NOTE | 2017-12-27 04:28 | PCM.HP.STD ---
Problem List (1) Alcohol abuse Status: Chronic (2) Anxiety Status: Chronic (3) Thrombocytopenia Status: Chronic (4) Alcohol withdrawal Status: Acute Qualifiers: Complication of substance-induced condition: uncomplicated Qualified Code(s): F10.230 - Alcohol dependence with withdrawal, uncomplicated (5) Hypokalemia Status: Chronic (6) Arthritis of left hip Status: Chronic (7) Tobacco dependency Status: Chronic History of Present Illness Date of Admission: 12/27/17 Chief Complaint: Requesting alcohol detox The patient is a 47 year old M who has been consuming at least 624 ounce beers per day for the past week. Patient was recently admitted for acute alcohol withdrawal from November 08 - November 11. Patient was involved with 180 and was speaking with his counselor. Patient states that a week ago patient took a book out of his house that he thought was his daughters diarrhea only to find out that it was his 's diary. He stated that he read 2 sentences and then had to put it down and then immediately took up to drinking alcohol again. Per the ER report, patient had an alcohol level of 390. Patient states that he is requesting alcohol detoxification. Patient states that in the midst of his most recent hospitalization and now, he is now officially . States that he is feeling some tremulousness and some sweating but denies any hallucinations. He states that he has tried AA and that it does not work for him previously. [] Past Medical History Past Medical History (Chronic Problems): Chronic Problems Alcohol abuse (Chronic) Anxiety (Chronic) Thrombocytopenia (Chronic) Hypokalemia (Chronic) Arthritis of left hip (Chronic) Tobacco dependency (Chronic) Allergies diphenhydramine HCl [From Benadryl] Adverse Reaction (Verified 11/08/17 08:28) Swelling mushroom Adverse Reaction (Verified 11/08/17 08:28) Vomiting Home Medications: Ambulatory Orders Medication Instructions Recorded Duloxetine Hcl [Cymbalta] 60 mg PO DAILY 11/08/17 Folic Acid 1 mg PO DAILY@0800 #30 tab 11/11/17 Multivitamins,Ther W-Minerals 1 tab PO DAILYCM #30 tab 11/11/17 [Multivitamin With Minerals] Thiamine HCl [B-1] 100 mg PO DAILY #30 tab 11/11/17 Surgical History: tonsillectomy Psychiatric History: No pertinent psych hx Smoking Status: Heavy Smoker (>10/day) Tobacco Use: Cigarettes Alcohol: Heavy Drugs: None - *Family History Sibling History Items: No pertinent history Maternal History Items: Hypertension Paternal History Items: No pertinent history Review of Systems Constitutional: Reports: Chills. Denies: Anorexia, Fever Eyes: Denies: Blurred vision, Double vision HEENT: Denies: Head Aches, Sinus Congestion, Sinus Drainage Cardiovascular: Denies: Chest Pain, Palpitations Respiratory: Denies: Cough, Shortness of breath at rest, Sputum production Gastrointestinal: Denies: Abdominal Pain, Nausea, Vomiting Genitourinary: Denies: Dysuria Musculoskeletal: Denies: Joint Pain, Joint Tenderness Skin: Denies: Dryness, Jaundice Neurological: Denies: Numbness, Tingling, Focal weakness Psychiatric: Denies: Anxiety, Depression Endocrine: Denies: Change in Body Habitus Hematologic/ Lymphatic: Denies: Easy Bruising, Easy Bleeding, Hx of blood clot VTE Information - Inpt Only VTE Present on Admission: No VTE Mechan Device Prophylaxis: None VTE Pharm Prophylaxis ordered?: No Reason prophylaxis not ordered:: Treatment Not Indicated - Physical Exam General: Alert, Cooperative, No apparent distress, - - Comfortable. Afebrile. HEENT: Atraumatic, EOMI, Normocephalic, - - Bilateral lateral going nystagmus Oral: Moist Mucosa, No Gingival or Mucosal Lesions/ Ulcerations Neck: No Nodes, Thyroid Normal Size and Texture Lungs: Clear to auscultation, Normal air movement, No rhonchi, No wheeze Cardiovascular: Regular rate, Regular Rhythm, Normal S1, Normal S2, No murmurs Abdomen: Bowel Sounds Present, Soft, Non Tender, Non-Distended, No Hepato-splenomegaly Extremities: No edema, No Calf Tenderness Skin: No rashes, No breakdown Psych/Mental Status: Normal Affect, Appropriate Finger Stick Blood Glucose 120 Assessment/Plan 1. Acute alcohol withdrawal Patient's CIWA score at this time is only 3 therefore no medication is necessary at this time. Patient states that his withdrawal begins within several hours and that he has had delirium tremens in the past about 3 months ago. Therefore it is anticipated that the patient will start going to more serious alcohol withdrawal within the next several hours, at least according to what the patient has told me. 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 Patient will be started on thiamine and folate and patient will have Ativan as needed based on his CIWA score Will attempt to have [facility] come back and reevaluate this patient. I did inform patient that they may not be able to see him given his recent discharge for similar alcohol withdrawal from this institution. I did advise the patient to follow-up with 180 and to talk with this counselor which he had not done since he is resumed drinking alcohol again. I reinforced having supports is very important as it is very difficult to stop and addiction by oneself. 2. Thrombocytopenia This is chronic Continue to monitor. 3. DVT prophylaxis patient low risk therefore, colon or mechanical prophylaxis is necessary at this time. Code Visit Inpatient E&M: 08348 Init Hosp L2
[2017-12-27 04:38] LABS: Bacteria 0 SEEN /hpf (None Seen); Mucous, Urine 0 SEEN /hpf (<or=2+); Red Blood Cells-Urine 0 SEEN /hpf (0-5); White Blood Cells 0 SEEN /hpf (0-5)
--- NOTE | 2017-12-27 04:38 | HP.PCM_ITS ---
Problem List (1) Alcohol abuse Status: Chronic (2) Anxiety Status: Chronic (3) Thrombocytopenia Status: Chronic (4) Alcohol withdrawal Status: Acute Qualifiers: Complication of substance-induced condition: uncomplicated Qualified Code(s ): F10.230 - Alcohol dependence with withdrawal, uncomplicated (5) Hypokalemia Status: Chronic (6) Arthritis of left hip Status: Chronic (7) Tobacco dependency Status: Chronic History of Present Illness Date of Admission: 12/27/17 Chief Complaint: Requesting alcohol detox The patient is a 47 year old M who has been consuming at least 624 ounce beers per day for the past week. Patient was recently admitted for acute alcohol withdrawal from November 08 - November 11. Patient was involved with 180 and was speaking with his counselor. Patient states that a week ago patient took a book out of his house that he thought was his daughters diarrhea only to find out that it was his 's diary. He stated that he read 2 sentences and then had to put it down and then immediately took up to drinking alcohol again. Per the ER report, patient had an alcohol level of 390. Patient states that he is requesting alcohol detoxification. Patient states that in the midst of his most recent hospitalization and now, he is now officially . States that he is feeling some tremulousness and some sweating but denies any hallucinations. He states that he has tried AA and that it does not work for him previously. [] Past Medical History Past Medical History (Chronic Problems): Chronic Problems Alcohol abuse (Chronic) Anxiety (Chronic) Thrombocytopenia (Chronic) Hypokalemia (Chronic) Arthritis of left hip (Chronic) Tobacco dependency (Chronic) Allergies diphenhydramine HCl [From Benadryl] Adverse Reaction (Verified 11/08/17 08:28) Swelling mushroom Adverse Reaction (Verified 11/08/17 08:28) Vomiting Home Medications: Ambulatory Orders Medication Instructions Recorded Duloxetine Hcl [Cymbalta] 60 mg PO DAILY 11/08/17 Folic Acid 1 mg PO DAILY@0800 #30 tab 11/11/17 Multivitamins,Ther W-Minerals 1 tab PO DAILYCM #30 tab 11/11/17 [Multivitamin With Minerals] Thiamine HCl [B-1] 100 mg PO DAILY #30 tab 11/11/17 Surgical History: tonsillectomy Psychiatric History: No pertinent psych hx Smoking Status: Heavy Smoker (>10/day) Tobacco Use: Cigarettes Alcohol: Heavy Drugs: None - *Family History Sibling History Items: No pertinent history Maternal History Items: Hypertension Paternal History Items: No pertinent history Review of Systems Constitutional: Reports: Chills. Denies: Anorexia, Fever Eyes: Denies: Blurred vision, Double vision HEENT: Denies: Head Aches, Sinus Congestion, Sinus Drainage Cardiovascular: Denies: Chest Pain, Palpitations Respiratory: Denies: Cough, Shortness of breath at rest, Sputum production Gastrointestinal: Denies: Abdominal Pain, Nausea, Vomiting Genitourinary: Denies: Dysuria Musculoskeletal: Denies: Joint Pain, Joint Tenderness Skin: Denies: Dryness, Jaundice Neurological: Denies: Numbness, Tingling, Focal weakness Psychiatric: Denies: Anxiety, Depression Endocrine: Denies: Change in Body Habitus Hematologic/ Lymphatic: Denies: Easy Bruising, Easy Bleeding, Hx of blood clot VTE Information - Inpt Only VTE Present on Admission: No VTE Mechan Device Prophylaxis: None VTE Pharm Prophylaxis ordered?: No Reason prophylaxis not ordered:: Treatment Not Indicated - Physical Exam General: Alert, Cooperative, No apparent distress, - - Comfortable. Afebrile. HEENT: Atraumatic, EOMI, Normocephalic, - - Bilateral lateral going nystagmus Oral: Moist Mucosa, No Gingival or Mucosal Lesions/ Ulcerations Neck: No Nodes, Thyroid Normal Size and Texture Lungs: Clear to auscultation, Normal air movement, No rhonchi, No wheeze Cardiovascular: Regular rate, Regular Rhythm, Normal S1, Normal S2, No murmurs Abdomen: Bowel Sounds Present, Soft, Non Tender, Non-Distended, No Hepato- splenomegaly Extremities: No edema, No Calf Tenderness Skin: No rashes, No breakdown Psych/Mental Status: Normal Affect, Appropriate Finger Stick Blood Glucose 120 Assessment/Plan 1. Acute alcohol withdrawal * Patient's CIWA score at this time is only 3 therefore no medication is necessary at this time. Patient states that his withdrawal begins within several hours and that he has had delirium tremens in the past about 3 months ago. Therefore it is anticipated that the patient will start going to more serious alcohol withdrawal within the next several hours, at least according to what the patient has told me. 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 * Patient will be started on thiamine and folate and patient will have Ativan as needed based on his CIWA score * Will attempt to have [facility] come back and reevaluate this patient. I did inform patient that they may not be able to see him given his recent discharge for similar alcohol withdrawal from this institution. * I did advise the patient to follow-up with 180 and to talk with this counselor which he had not done since he is resumed drinking alcohol again. I reinforced having supports is very important as it is very difficult to stop and addiction by oneself. 2. Thrombocytopenia * This is chronic * Continue to monitor. 3. DVT prophylaxis patient low risk therefore, colon or mechanical prophylaxis is necessary at this time. Code Visit Inpatient E&M: 74547 Init Hosp L2
[2017-12-27] MEDS: chlordiazePOXIDE 25 MG Capsule 50 MG PO (04:39)
[2017-12-27 04:45] VITALS: BP 135/101; PULSE 88; RESP 16; O2SAT 93
[2017-12-27 04:45] LABS: Hematocrit 44.9 % (40-54); Hemoglobin 15.8 g/dl (13.0-16.5); Mean Corp Hgb Conc 35.2 g/gl (32-36); Mean Corpuscular Hgb 33.3 pg (27.0-32.0); Mean Corpuscular Volume 94.7 fL (80-94); Platelet Count 69 K/mm3 (150-450); RBC Distribution Width CV 14.3 % (11.6-14.6); RBC Distribution Width SD 49.9 fl (35.1-43.9); Red Blood Count 4.74 M/mm3 (4.6-6.2); White Blood Count 5.4 K/mm3 (4.4-11.0)
[2017-12-27 04:47] VITALS: BP 135/101; PULSE 90; RESP 18; O2SAT 97
[2017-12-27 04:51] LABS: Color, Urine Straw (Yellow); Glucose, Dipstick Normal (Normal); Ketone-Dipstick Negative (Negative); Leukocyte Esterase-Dipstick Negative /ul (Negative); Nitrite-Dipstick Negative (Negative); Occult Blood-Urine Negative /ul (Negative); Protein-Dipstick Negative (Negative); Specific Gravity, Urine 1.005 (1.002-1.030); Urine Bilirubin Dipstick Negative (Negative); Urine Clarity Clear (Clear); Urine Urobilinogen Normal (Normal)
[2017-12-27 04:52] LABS: Squamous Epithelial Cells - UA 0-5 SEEN /hpf (0-5)
[2017-12-27 04:55] LABS: AST(SGOT) 77 U/L (15-37); Alanine Aminotransfer ALT/SGPT 59 U/L (16-61); Albumin, Serum 4.4 g/dL (3.2-5.0); Alkaline Phosphatase 66 U/L (45-117); Anion Gap 13 (5-15); BUN 8 mg/dL (7-18); BUN/Creat Ratio 14.8 RATIO (10-20); Chloride 99 mmol/L (98-107); Creatinine, Serum 0.54 mg/dL (0.70-1.30); EST Glomerular Filtration Rate 172 mL/min (>60); Est Glom Filt Rate - Afr Amer 208 mL/min (>60); Globulin 4.2 g/dL (2.2-4.2); Glucose 79 mg/dL (74-106); Potassium 3.1 mmol/L (3.5-5.1); Protein, Total 8.6 g/dL (6.4-8.2); Scan Indicated on CBC? Y/N NO; Sodium Level 139 mmol/L (136-145)
[2017-12-27 04:57] LABS: Amphetamine Urine VISTA NEGATIVE (<1000 ng/mL); Barbiturate Urine VISTA NEGATIVE (< 200 ng/mL); Benzodiazepine Urine VISTA NEGATIVE (< 200 ng/mL); Cocaine Urine VISTA NEGATIVE (< 300 ng/mL); Ecstacy Urine VISTA NEGATIVE (< 500 ng/mL); Methadone Urine VISTA NEGATIVE (< 300 ng/mL); PCP Urine VISTA NEGATIVE (< 25 ng/mL); THC Urine VISTA NEGATIVE (< 50 ng/mL); Vista UDS pH Range 6
[2017-12-27 05:34] VITALS: BP 140/96; PULSE 94; RESP 18; TEMP 36.7; O2SAT 98
[2017-12-27 05:36] VITALS: BMI 22.2
[2017-12-27 05:38] VITALS: BMI 22.2
[2017-12-27] MEDS: Lactated Ringers 1,000 ML 125 ML IV (05:53)
[2017-12-27 08:34] VITALS: BP 126/72; PULSE 109; RESP 16; TEMP 36.9; O2SAT 94
[2017-12-27] MEDS: Folic Acid 1 MG Tablet PO (08:40)
[2017-12-27] MEDS: Thiamine Hydrochloride 100 MG Tablet PO (08:40)
[2017-12-27 14:42] VITALS: BP 162/104; PULSE 102; RESP 18; TEMP 36.8; O2SAT 97
[2017-12-27] MEDS: LORazepam 1 MG Tablet 2 MG PO (16:38)
--- NOTE | 2017-12-27 17:39 | PCM.PN.HOSP ---
Subjective: Patient was seen and examined. He is having tremors. Denies any fever but has chills, denies any chest pain or palpitations. He has been seen by the [facility] and accepted for medical stabilization. Vitals/I&O's: Vital Signs Temp Pulse Resp BP Pulse Ox 98.2 F 102 H 18 162/104 H 97 12/27/17 14:42 12/27/17 14:42 12/27/17 14:42 12/27/17 14:42 12/27/17 14:42 Oxygen Delivery Method Room Air Weight: 80.7 kg Body Mass Index (BMI) 22.2 Intake and Output for Last 24 Hours 12/25/17 12/26/17 12/27/17 23:59 23:59 23:59 Intake Total 1191 / 1191 Balance 1191 / 1191 General: Alert, Oriented x3, Cooperative, No apparent distress HEENT: Atraumatic, PERRLA, EOMI, Normocephalic Oral: Moist Mucosa Neck: Supple Lungs: Clear to auscultation, Normal air movement Cardiovascular: Regular rate, Regular Rhythm, Normal S1, Normal S2, No murmurs Abdomen: Bowel Sounds Present, Soft, Non Tender, Non-Distended, No Hepato-splenomegaly Extremities: No edema Skin: No rashes Musculoskeletal: No Tenderness to Palpation of Joints or Extremities Lymphatic: No Cervical, Supraclavicular, or Inguinal Adenopathy Neurological: Cranial nerves II-XII grossly intact, Neuro grossly intact Psych/Mental Status: Normal Affect, Appropriate Current Medications Acetaminophen (Tylenol) 500 mg PO Q4H PRN PRN PRN Reason: Temp > 100.4 F Dicyclomine HCl (Bentyl) 20 mg PO Q6H PRN PRN PRN Reason: abdominal discomfort Duloxetine HCl (Cymbalta) 60 mg PO DAILY [facility] Folic Acid (Folic Acid) 1 mg PO DAILY@0800 [facility] Last Admin: 12/27/17 08:40 Dose: 1 mg Loperamide HCl (Imodium) 2 - 4 mg PO UD PRN PRN Reason: LOOSE STOOLS Lorazepam (Ativan) 2 mg PO Q2H PRN PRN; Protocol PRN Reason: CIWA score > 8 but <15 Last Admin: 12/27/17 16:38 Dose: 2 mg Lorazepam (Ativan) 2 mg PO UD PRN; Protocol PRN Reason: CIWA score >/=15. Magnesium Hydroxide (Milk Of Magnesia) 30 ml PO DAILY PRN PRN PRN Reason: Constipation Methocarbamol (Methocarbamol) 750 mg PO Q6H PRN PRN PRN Reason: Muscle Aches Multivitamins/Minerals (Multivitamin With Minerals) 1 tablet PO DAILYCM [facility] Nicotine (Nicoderm Cq (Pbkc)) 21 mg TRANSDERM. DAILY [facility] Last Admin: 12/27/17 08:40 Dose: 21 mg Nutritional Formula (Lactose Free) (Ensure Enlive) 120 ml PO 4X/DAY [facility] Ondansetron HCl (Zofran) 4 mg IV Q6H PRN PRN PRN Reason: NAUSEA/VOMITING Ondansetron HCl (Zofran) 8 mg PO Q8H PRN PRN PRN Reason: NAUSEA/VOMITING Sodium Chloride () 5 - 30 ml IV UD PRN PRN Reason: SALINE FLUSH Thiamine HCl (Vitamin B1) 100 mg PO DAILYCM [facility] Last Admin: 12/27/17 08:40 Dose: 100 mg Trazodone HCl (Desyrel) 50 mg PO QHS [facility] Medical Necessity - Tobacco Use Smoking Status: Heavy Smoker (>10/day) Tobacco Use: Cigarettes Assessment/Plan 47y/o male with past medical history of alcohol use disorder who comes in with alcohol withdrawal, requesting for alcohol detox. 1. Acute alcohol withdrawal, severe, CIWA 10, admitted with alcohol level of 390 on withdrawal protocol 2. Nicotine use disorder, on replacement 3. Hypokalemia, replace, recheck in a.m. 4. Thrombocytopenia, likely related to alcohol, would hold Lovenox, and continue on SCDs Code Visit Inpatient E&M: 49849 Subs Hosp L2
--- NOTE | 2017-12-27 17:45 | PN_ITS ---
Subjective: Patient was seen and examined. He is having tremors. Denies any fever but has chills, denies any chest pain or palpitations. He has been seen by the [facility] and accepted for medical stabilization. Vitals/I&O's: Vital Signs Temp Pulse Resp BP Pulse Ox 98.2 F 102 H 18 162/104 H 97 12/27/17 14:42 12/27/17 14:42 12/27/17 14:42 12/27/17 14:42 12/27/17 14:42 Oxygen Delivery Method Room Air Weight: 80.7 kg Body Mass Index (BMI) 22.2 Intake and Output for Last 24 Hours 12/25/17 12/26/17 12/27/17 23:59 23:59 23:59 Intake Total 1191 / 1191 Balance 1191 / 1191 General: Alert, Oriented x3, Cooperative, No apparent distress HEENT: Atraumatic, PERRLA, EOMI, Normocephalic Oral: Moist Mucosa Neck: Supple Lungs: Clear to auscultation, Normal air movement Cardiovascular: Regular rate, Regular Rhythm, Normal S1, Normal S2, No murmurs Abdomen: Bowel Sounds Present, Soft, Non Tender, Non-Distended, No Hepato- splenomegaly Extremities: No edema Skin: No rashes Musculoskeletal: No Tenderness to Palpation of Joints or Extremities Lymphatic: No Cervical, Supraclavicular, or Inguinal Adenopathy Neurological: Cranial nerves II-XII grossly intact, Neuro grossly intact Psych/Mental Status: Normal Affect, Appropriate Current Medications Acetaminophen (Tylenol) 500 mg PO Q4H PRN PRN PRN Reason: Temp > 100.4 F Dicyclomine HCl (Bentyl) 20 mg PO Q6H PRN PRN PRN Reason: abdominal discomfort Duloxetine HCl (Cymbalta) 60 mg PO DAILY [facility] Folic Acid (Folic Acid) 1 mg PO DAILY@0800 [facility] Last Admin: 12/27/17 08:40 Dose: 1 mg Loperamide HCl (Imodium) 2 - 4 mg PO UD PRN PRN Reason: LOOSE STOOLS Lorazepam (Ativan) 2 mg PO Q2H PRN PRN; Protocol PRN Reason: CIWA score > 8 but <15 Last Admin: 12/27/17 16:38 Dose: 2 mg Lorazepam (Ativan) 2 mg PO UD PRN; Protocol PRN Reason: CIWA score >/=15. Magnesium Hydroxide (Milk Of Magnesia) 30 ml PO DAILY PRN PRN PRN Reason: Constipation Methocarbamol (Methocarbamol) 750 mg PO Q6H PRN PRN PRN Reason: Muscle Aches Multivitamins/Minerals (Multivitamin With Minerals) 1 tablet PO DAILYCM [facility] Nicotine (Nicoderm Cq (Pbkc)) 21 mg TRANSDERM. DAILY [facility] Last Admin: 12/27/17 08:40 Dose: 21 mg Nutritional Formula (Lactose Free) (Ensure Enlive) 120 ml PO 4X/DAY [facility] Ondansetron HCl (Zofran) 4 mg IV Q6H PRN PRN PRN Reason: NAUSEA/VOMITING Ondansetron HCl (Zofran) 8 mg PO Q8H PRN PRN PRN Reason: NAUSEA/VOMITING Sodium Chloride () 5 - 30 ml IV UD PRN PRN Reason: SALINE FLUSH Thiamine HCl (Vitamin B1) 100 mg PO DAILYCM [facility] Last Admin: 12/27/17 08:40 Dose: 100 mg Trazodone HCl (Desyrel) 50 mg PO QHS [facility] Medical Necessity - Tobacco Use Smoking Status: Heavy Smoker (>10/day) Tobacco Use: Cigarettes Assessment/Plan 47y/o male with past medical history of alcohol use disorder who comes in with alcohol withdrawal, requesting for alcohol detox. 1. Acute alcohol withdrawal, severe, CIWA 10, admitted with alcohol level of 390 on withdrawal protocol 2. Nicotine use disorder, on replacement 3. Hypokalemia, replace, recheck in a.m. 4. Thrombocytopenia, likely related to alcohol, would hold Lovenox, and continue on SCDs Code Visit Inpatient E&M: 01674 Subs Hosp L2
[2017-12-27 19:52] VITALS: BP 162/104; PULSE 89; RESP 16; TEMP 37.2; O2SAT 97
[2017-12-27] MEDS: traZODone 50 MG Tablet PO (21:57)
[2017-12-28 02:00] VITALS: BP 147/98; PULSE 110; RESP 16; TEMP 36.7; O2SAT 96
[2017-12-28 05:41] LABS: Absolute Lymphocyte Count 1.23 X10^3/ul (0.83-4.51); Absolute Neutrophil Count 2.6 X10^3/uL (2.0-7.7); Basophil# 0.03 X10^3/uL; Basophil% 0.7 % (0-1); Eosinophil# 0.31 X10^3/uL; Eosinophils% 6.8 % (0-5); Hematocrit 43.2 % (40-54); Lymphocyte # 1.23 X10^3/ul (4.0); Lymphocyte % 26.9 % (19-41); Mean Corp Hgb Conc 34.7 g/gl (32-36); Mean Corpuscular Hgb 32.8 pg (27.0-32.0); Mean Corpuscular Volume 94.3 fL (80-94); Mean Platelet Vol. 9.8 fl (6.2-12.0); Monocyte# 0.39 X10^3/uL; Monocyte% 8.5 % (0-10); Neutrophil # 2.61 X10^3/uL (2.7-7.7); Neutrophil % 57.1 % (47-70); Platelet Count 63 K/mm3 (150-450); RBC Distribution Width CV 13.5 % (11.6-14.6); RBC Distribution Width SD 45.1 fl (35.1-43.9); Red Blood Count 4.58 M/mm3 (4.6-6.2); White Blood Count 4.6 K/mm3 (4.4-11.0)
[2017-12-28 05:45] LABS: POSITIVE COUNT NO; POSITIVE DIFFERENTIAL NO; POSITIVE MORPHOLOGY NO
[2017-12-28 06:16] LABS: Anion Gap 9 (5-15); BUN 14 mg/dL (7-18); Calcium,Total 9.4 mg/dL (8.5-10.1); Chloride 99 mmol/L (98-107); Creatinine, Serum 0.52 mg/dL (0.70-1.30); EST Glomerular Filtration Rate 180 mL/min (>60); Est Glom Filt Rate - Afr Amer 218 mL/min (>60); Estimated Creatinine Clearance 196.15 ml/min; Glucose 90 mg/dL (74-106); Potassium 3.3 mmol/L (3.5-5.1); Sodium Level 136 mmol/L (136-145)
--- NOTE | 2017-12-28 10:38 | PN_ITS ---
Subjective: Patient was seen and examined. He has been sleeping for most part of the afternoon. Still has upper extremities tremors. Denies fever, chills, palpitations, chest pain. Objective: Physical exam: General: Alert, Oriented x3, Cooperative, No apparent distress HEENT: Atraumatic, PERRLA, EOMI, Normocephalic Oral: Moist Mucosa Neck: Supple Lungs: Clear to auscultation, Normal air movement Cardiovascular: Regular rate, Regular Rhythm, Normal S1, Normal S2, No murmurs Abdomen: Bowel Sounds Present, Soft, Non Tender, Non-Distended, No Hepato- splenomegaly Extremities: No edema Skin: No rashes Musculoskeletal: No Tenderness to Palpation of Joints or Extremities Lymphatic: No Cervical, Supraclavicular, or Inguinal Adenopathy Neurological: Cranial nerves II-XII grossly intact, Neuro grossly intact Psych/Mental Status: Normal Affect, Appropriate Vitals/I&O's: Vital Signs Temp Pulse Resp BP Pulse Ox 98.0 F 110 H 16 147/98 H 96 12/28/17 02:00 12/28/17 02:00 12/28/17 02:00 12/28/17 02:00 12/28/17 02:00 Oxygen Delivery Method Room Air Weight: 80.7 kg Body Mass Index (BMI) 22.2 Intake and Output for Last 24 Hours 12/26/17 12/27/17 12/28/17 23:59 23:59 23:59 Intake Total 1191 / 1191 700 / 700 Balance 1191 / 1191 700 / 700 Laboratory Results 12/28/17 05:18: WBC 4.6, RBC 4.58 L, Hgb 15.0, Hct 43.2, MCV 94.3 H, MCH 32.8 H , MCHC 34.7, RDW 13.5, RDW Differential 45.1 H, Plt Count 63 L, MPV 9.8, Immature Gran % (Auto) 0.000, Neut % (Auto) 57.1, Lymph % (Auto) 26.9, [place] % ( Auto) 8.5, Eos % (Auto) 6.8 H, Baso % (Auto) 0.7, Absolute Neuts (auto) 2.6, Absolute Lymphs (auto) 1.23, Total Counted Not Reportable 12/28/17 05:18: Sodium 136, Potassium 3.3 L, Chloride 99, Carbon Dioxide 28.0, Anion Gap 9, BUN 14, Creatinine 0.52 L, Estim Creat Clear Calc 196.15, Est GFR ( MDRD) Af Amer 218, Est GFR (MDRD) Non-Af 180, BUN/Creatinine Ratio 27.0 H, Glucose 90, Calcium 9.4 Current Medications Acetaminophen (Tylenol) 500 mg PO Q4H PRN PRN PRN Reason: Temp > 100.4 F Dicyclomine HCl (Bentyl) 20 mg PO Q6H PRN PRN PRN Reason: abdominal discomfort Duloxetine HCl (Cymbalta) 60 mg PO DAILY [facility] Folic Acid (Folic Acid) 1 mg PO DAILY@0800 [facility] Last Admin: 12/27/17 08:40 Dose: 1 mg Loperamide HCl (Imodium) 2 - 4 mg PO UD PRN PRN Reason: LOOSE STOOLS Lorazepam (Ativan) 2 mg PO Q2H PRN PRN; Protocol PRN Reason: CIWA score > 8 but <15 Last Admin: 12/27/17 16:38 Dose: 2 mg Lorazepam (Ativan) 2 mg PO UD PRN; Protocol PRN Reason: CIWA score >/=15. Magnesium Hydroxide (Milk Of Magnesia) 30 ml PO DAILY PRN PRN PRN Reason: Constipation Methocarbamol (Methocarbamol) 750 mg PO Q6H PRN PRN PRN Reason: Muscle Aches Multivit[facility]Minerals [facility] Nicotine (Nicoderm Cq (Pbkc)) 21 mg TRANSDERM. DAILY [facility] Last Admin: 12/27/17 08:40 Dose: 21 mg Nutritional Formula (Lactose Free) (Ensure Enlive) 120 ml PO 4X/DAY [facility] Last Admin: 12/27/17 21:56 Dose: 120 ml Ondansetron HCl (Zofran) 4 mg IV Q6H PRN PRN PRN Reason: NAUSEA/VOMITING Ondansetron HCl (Zofran) 8 mg PO Q8H PRN PRN PRN Reason: NAUSEA/VOMITING Potassium Chloride (K-Dur) 60 meq PO X1 [facility] Stop: 12/28/17 10:34 Sodium Chloride () 5 - 30 ml IV UD PRN PRN Reason: SALINE FLUSH Thiamine [facility] B[facility]) [facility] Last Admin: 12/27/17 08:40 Dose: 100 mg Trazodone HCl (Desyrel) 50 mg PO QHS [facility] Last Admin: 12/27/17 21:57 Dose: 50 mg Medical Necessity - Tobacco Use Smoking Status: Heavy Smoker (>10/day) Tobacco Use: Cigarettes Assessment/Plan 47y/o male with past medical history of alcohol use disorder who comes in with alcohol withdrawal, requesting for alcohol detox. 1. Acute alcohol withdrawal, improving, admitted with alcohol level of 390, continue on withdrawal protocol. 2. Nicotine use disorder, on replacement 3. Hypokalemia, potassium is 3.3, replace, recheck in a.m. 4. Thrombocytopenia, likely related to alcohol, would hold Lovenox, and continue on SCDs Code Visit Inpatient E&M: 77048 Subs Hosp L2
[2017-12-28 11:53] VITALS: BP 129/98; PULSE 104; RESP 14; TEMP 36.9; O2SAT 97
[2017-12-28 11:54] VITALS: BP 129/98; PULSE 106; RESP 14; TEMP 36.9; O2SAT 97
[2017-12-28] MEDS: Thiamine Hydrochloride 100 MG Tablet PO (11:58)
[2017-12-28] MEDS: Folic Acid 1 MG Tablet PO (11:58)
[2017-12-28] MEDS: Multivitamins,Ther W-Minerals Tablet 1 TABLET PO (11:58)
[2017-12-28] MEDS: DULoxetine Hcl 60 MG Capsule PO (11:58)
[2017-12-28 18:00] VITALS: BP 133/98; PULSE 104; RESP 16; TEMP 37.1; O2SAT 98
[2017-12-28 22:33] VITALS: BP 134/98; PULSE 97; RESP 16; TEMP 37.6; O2SAT 97
[2017-12-28] MEDS: traZODone 50 MG Tablet PO (22:41)
[2017-12-28 22:46] VITALS: BP 134/98; PULSE 97; RESP 16; TEMP 37.6; O2SAT 98
[2017-12-29 04:23] VITALS: BP 150/96; PULSE 95; RESP 16; TEMP 36.5; O2SAT 97
[2017-12-29 04:35] VITALS: BP 150/96; PULSE 95; RESP 16; TEMP 36.5; O2SAT 97
[2017-12-29 06:24] LABS: Anion Gap 8 (5-15); BUN 20 mg/dL (7-18); BUN/Creat Ratio 31.1 RATIO (10-20); Chloride 98 mmol/L (98-107); Creatinine, Serum 0.64 mg/dL (0.70-1.30); EST Glomerular Filtration Rate 140 mL/min (>60); Est Glom Filt Rate - Afr Amer 170 mL/min (>60); Estimated Creatinine Clearance 159.37 ml/min; Glucose 108 mg/dL (74-106); Potassium 3.6 mmol/L (3.5-5.1); Sodium Level 133 mmol/L (136-145)
[2017-12-29 07:47] VITALS: BP 126/91; PULSE 109; RESP 14; TEMP 36.8; O2SAT 100
[2017-12-29] MEDS: DULoxetine Hcl 60 MG Capsule PO (07:50)
[2017-12-29] MEDS: Folic Acid 1 MG Tablet PO (07:50)
[2017-12-29] MEDS: Thiamine Hydrochloride 100 MG Tablet PO (07:50)
[2017-12-29] MEDS: Multivitamins,Ther W-Minerals Tablet 1 TABLET PO (07:50)
[2017-12-29 13:37] VITALS: BP 118/79; PULSE 89; RESP 14; TEMP 36.9; O2SAT 98
--- NOTE | 2017-12-29 14:06 | CHAPLAIN ---
Type of Pastoral Visit _x__ Initial Visit ___ Follow-up Visit ___ On-call Visit ___ General Patient Visit ___ Spiritual Assessment ___ Family Conference ___ Bereavement ___ Rapid Response ___ Code Blue ___ Other (describe below) Pastoral Care Referral From _x__ Patient ___ Family ___ Nurse ___ Physician ___ [employer] Chief ___ Private Duty Lpn ___ Other (describe below) Sacrament/Intervention _x__ Active listening ___ Anointing ___ Taoist ___ Bereavement ___ Communion _x__ Delia exploration ___ _x__ Life review _x__ Prayer ___ Reconciliation ___ Sacrament of Sick _x__ Supportive presence ___ Wedding ___ Other (describe below) Pastoral Comments patient expressed much understanding about the problems and his vulnerabilities; pt becoming aware that he would benefit from a 'positive action' approach; pt has concerns about being home alone; talked about his support and development of relationships; grief issues considered; pt has great interest in spiritual topics and theology;
--- NOTE | 2017-12-29 17:28 | PCM.PN.HOSP ---
Subjective: Seen and examined. No new complaints. Denies any worsening tremors or fever or chills. Feels improved. Objective: Physical exam: General: Alert, Oriented x3, Cooperative, No apparent distress HEENT: Atraumatic, PERRLA, EOMI, Normocephalic Oral: Moist Mucosa Neck: Supple Lungs: Clear to auscultation, Normal air movement Cardiovascular: Regular rate, Regular Rhythm, Normal S1, Normal S2, No murmurs Abdomen: Bowel Sounds Present, Soft, Non Tender, Non-Distended, No Hepato-splenomegaly Extremities: No edema Skin: No rashes Musculoskeletal: No Tenderness to Palpation of Joints or Extremities Lymphatic: No Cervical, Supraclavicular, or Inguinal Adenopathy Neurological: Cranial nerves II-XII grossly intact, Neuro grossly intact Psych/Mental Status: Normal Affect, Appropriate Vitals/I&O's: Vital Signs Temp Pulse Resp BP Pulse Ox 98.5 F 89 14 118/79 98 12/29/17 13:37 12/29/17 13:37 12/29/17 13:37 12/29/17 13:37 12/29/17 13:37 Oxygen Delivery Method Room Air Weight: 80.7 kg Body Mass Index (BMI) 22.2 Intake and Output for Last 24 Hours 12/27/17 12/28/17 12/29/17 23:59 23:59 23:59 Intake Total 1191 / 1191 1400 / 1400 600 / 600 Balance 1191 / 1191 1400 / 1400 600 / 600 Laboratory Results 12/29/17 05:18: Sodium 133 L, Potassium 3.6, Chloride 98, Carbon Dioxide 27.0, Anion Gap 8, BUN 20 H, Creatinine 0.64 L, Estim Creat Clear Calc 159.37, Est GFR (MDRD) Af Amer 170, Est GFR (MDRD) Non-Af 140, BUN/Creatinine Ratio 31.1 H, Glucose 108 H, Calcium 9.0 Current Medications Acetaminophen (Tylenol) 500 mg PO Q4H PRN PRN PRN Reason: Temp > 100.4 F Dicyclomine HCl (Bentyl) 20 mg PO Q6H PRN PRN PRN Reason: abdominal discomfort Duloxetine HCl (Cymbalta) 60 mg PO DAILY [facility] Last Admin: 12/29/17 07:50 Dose: 60 mg Folic Acid (Folic Acid) 1 mg PO DAILY@0800 [facility] Last Admin: 12/29/17 07:50 Dose: 1 mg Loperamide HCl (Imodium) 2 - 4 mg PO UD PRN PRN Reason: LOOSE STOOLS Lorazepam (Ativan) 2 mg PO Q2H PRN PRN; Protocol PRN Reason: CIWA score > 8 but <15 Last Admin: 12/27/17 16:38 Dose: 2 mg Lorazepam (Ativan) 2 mg PO UD PRN; Protocol PRN Reason: CIWA score >/=15. Magnesium Hydroxide (Milk Of Magnesia) 30 ml PO DAILY PRN PRN PRN Reason: Constipation Methocarbamol (Methocarbamol) 750 mg PO Q6H PRN PRN PRN Reason: Muscle Aches Multivitamins/Minerals ([facility] Minerals) [facility] Last Admin: 12/29/17 07:50 Dose: 1 tablet Nicotine (Nicoderm Cq (Pbkc)) 21 mg TRANSDERM. DAILY [facility] Last Admin: 12/29/17 07:56 Dose: 21 mg Nutritional Formula (Lactose Free) (Ensure Enlive) 120 ml PO 4X/DAY [facility] Last Admin: 12/29/17 13:43 Dose: 120 ml Ondansetron HCl (Zofran) 4 mg IV Q6H PRN PRN PRN Reason: NAUSEA/VOMITING Ondansetron HCl (Zofran) 8 mg PO Q8H PRN PRN PRN Reason: NAUSEA/VOMITING Sodium Chloride () 5 - 30 ml IV UD PRN PRN Reason: SALINE FLUSH Thiamine HCl ([facility]itamin B1) [facility] Last Admin: 12/29/17 07:50 Dose: 100 mg Trazodone HCl (Desyrel) 50 mg PO QHS [facility] Last Admin: 12/28/17 22:41 Dose: 50 mg Medical Necessity - Tobacco Use Smoking Status: Heavy Smoker (>10/day) Tobacco Use: Cigarettes Assessment/Plan 47y/o male with past medical history of alcohol use disorder who comes in with alcohol withdrawal, requesting for alcohol detox. 1. Acute alcohol withdrawal, improving, admitted with alcohol level of 390, continue on withdrawal protocol. 2. Nicotine use disorder, on replacement 3. Hypokalemia, resolved 4. Hyponatremia, likely due to fluid shifts 5. Thrombocytopenia, likely related to alcohol, would hold Lovenox, and continue on SCDs Code Visit Inpatient E&M: 16865 Subs Hosp L2
[2017-12-29 20:49] VITALS: BP 149/103; PULSE 104; RESP 16; TEMP 37.4; O2SAT 99
[2017-12-29 20:56] VITALS: BP 149/103; PULSE 104; RESP 16; TEMP 37.4; O2SAT 99
[2017-12-29] MEDS: traZODone 50 MG Tablet PO (21:06)
[2017-12-29] MEDS: MELATONIN 3 MG TABLET PO (22:31)
[2017-12-30 02:29] VITALS: BP 121/90; PULSE 111; RESP 16; TEMP 36.9; O2SAT 98
[2017-12-30 02:36] VITALS: BP 121/90; PULSE 111; RESP 16; TEMP 36.9; O2SAT 98
--- NOTE | 2017-12-30 07:30 | DCINST_ITS ---
- Discharge Diagnoses Current Active Problems: Current Active and Chronic Problems Alcohol abuse (Chronic) Reason(s) for Visit for Discharge Instructions: Alcohol withdrawal You will use the following diet at home:: Regular Your food should be the consistency of: Regular Your liquids should be the consistency of: Regular/Thin Discharge Activity: Return to Normal Activity Additional Instructions: You have been advised to avoid alcohol, follow-up in the outpatient with [facility]. Eat well, keep yourself hydrated. You need repeat blood work within 1 week. Allergies/Adverse Reactions: Allergies diphenhydramine HCl [From Benadryl] Adverse Reaction (Verified 11/08/17 08:28) Swelling mushroom Adverse Reaction (Verified 11/08/17 08:28) Vomiting Medications to take at Discharge Duloxetine Hcl [Cymbalta] 60 mg PO DAILY 11/08/17 Multivitamins,Ther W-Minerals [Multivitamin With Minerals] 1 tablet PO DAILYCM 12/27/17 Folic Acid 1 mg PO DAILY@0800 #30 tab 12/30/17 Melatonin 3 mg PO QHS PRN PRN 30 Days #30 tab 12/30/17 Thiamine Hydrochloride [Vitamin B1] 100 mg PO DAILYCM #30 tab 12/30/17 The following prescriptions were given: Folic Acid 1 mg PO DAILY@0800 #30 tab Thiamine Hydrochloride [Vitamin B1] 100 mg PO DAILYCM #30 tab Orders to be completed after discharge: Basic Metabolic Profile (BMP) Location: Laboratory Primary Care Physician: Elmer Bolton MD [Primary Care Provider] - Please follow up with your Primary Care Physician in: within 2 week Proposed Discharge Date: 12/30/17
--- NOTE | 2017-12-30 08:37 | PCM.DC.SUM ---
Discharge Date and Diagnosis Date of Admission: 12/27/17 Date of Discharge: 12/30/17 - Primary Discharge Diagnosis Alcohol withdrawal Hypokalemia Hyponatremia - Secondary Discharge Diagnosis Chronic Problems Alcohol abuse (Chronic) Anxiety (Chronic) Thrombocytopenia (Chronic) Hypokalemia (Chronic) Arthritis of left hip (Chronic) Tobacco dependency (Chronic) Hospital Course and Treatment None Operations: None Procedures: None Summary of Care Provided: 47y/o male with past medical history of alcohol use disorder who comes in with alcohol withdrawal, requesting for alcohol detox. 1. Acute alcohol withdrawal, improving, admitted with alcohol level of 390, managed on Ativan withdrawal protocol 2. Nicotine use disorder, on replacement 3. Hypokalemia, resolved 4. Hyponatremia, likely due to fluid shifts, BMP to be done in the outpatient 5. Thrombocytopenia, likely related to alcohol, was not given Lovenox, managed on SCDs Discharge Diet: No Restrictions Discharge Activity: Return to Normal Activity Home Medications: Medications to take at Discharge Duloxetine Hcl [Cymbalta] 60 mg PO DAILY 11/08/17 Folic Acid 1 mg PO DAILY@0800 #30 tab 12/30/17 Melatonin 3 mg PO QHS PRN PRN 30 Days #30 tab 12/30/17 Multivitamins,Ther W-Minerals [Multivitamin With Minerals] 1 tab PO DAILYCM #30 tab 12/30/17 Thiamine Hydrochloride [Vitamin B1] 100 mg PO DAILYCM #30 tab 12/30/17 Following Prescrptions Were Given to Patient: Folic Acid 1 mg PO DAILY@0800 #30 tab Melatonin 3 mg PO QHS PRN PRN 30 Days #30 tab PRN Reason: Insomnia Multivitamins,Ther W-Minerals [Multivitamin With Minerals] 1 tab PO DAILYCM #30 tab Thiamine Hydrochloride [Vitamin B1] 100 mg PO DAILYCM #30 tab Other Amb Orders: Basic Metabolic Profile (BMP) Location: Laboratory Primary Care Physician: Elmer Bolton MD [Primary Care Provider] - Please follow up with your Primary Care Physician in: within 2 week Disposition: Home Minutes spent on discharge:: 25 Patient Condition:: Stable Medical Necessity - Tobacco Use Smoking Status: Heavy Smoker (>10/day) Tobacco Use: Cigarettes Meaningful Use Info Meaningful Use Diagnoses (Choose all that apply): None applicable Code Visit Inpatient E&M: 40584 Disch Hosp
[2017-12-30] MEDS: Thiamine Hydrochloride 100 MG Tablet PO (09:11)
[2017-12-30] MEDS: Multivitamins,Ther W-Minerals Tablet 1 TABLET PO (09:11)
[2017-12-30] MEDS: Folic Acid 1 MG Tablet PO (09:11)
[2017-12-30] MEDS: DULoxetine Hcl 60 MG Capsule PO (09:11)
== END 2017-12-30 09:15 | disposition home or self-care (01) | DRG 434 ==
LOC: ED 04:17 → MS3 04:41
PROVIDERS: Emergency Provider Emergency Medicine; Family Provider Family Medicine; PCP Family Medicine; Visit Provider Internal Medicine
DX: F10.239 Alcohol dependence with withdrawal, unspecified (principal); E87.1 Hypo-osmolality and hyponatremia; D69.59 Other secondary thrombocytopenia; E87.6 Hypokalemia; F17.210 Nicotine dependence, cigarettes, uncomplicated; F41.9 Anxiety disorder, unspecified; Y90.8 Blood alcohol level of 240 mg/100 ml or more
CPT/HCPCS: 36415; 80048; 80053; 80307; 80320; 81001; 85025; 85027; 93005; 97162; 97802; 99282; 99406; J7120; A4216; G0480

== ENCOUNTER 2018-02-01 19:08 | Emergency (ER) | payer MEDICAID, SELFPAY ==
[2018-02-01 19:08] VITALS: BP 160/108; PULSE 133; RESP 16; TEMP 36.9; O2SAT 97; BMI 23.7
--- NOTE | 2018-02-01 20:20 | ED.DCSUM_ITS ---
- ER Visit Summary Date of Service: 02/01/18 Chief Complaint: [] History of Present Illness: The patient is a 47 M [] Physical Examination: [] Test Results: [] Emergency Department Course and Treatment: [] Treatment Plan: [] Disposition: [] Impression: [] This note was generated with SpeedDate dictation software. It may contain incorrect words, spelling, and punctuation that were not noted in review of the chart prior to signing ED Disposition - Plan for ED Patient: Disposition: Home or Assisted Living Chief Complaint: Dental Diagnosis: Dental caries Instructions: ED Cavity Dental Prescriptions: Penicillin V Potassium 500 mg PO 4X/DAY #40 tablet Referrals: Elmer Bolton MD [Primary Care Provider] - Additional Instructions: Follow up with [facility].
[2018-02-01 20:30] VITALS: PULSE 125; RESP 16; O2SAT 98
== END 2018-02-01 20:30 | disposition home or self-care (01) ==
LOC: ED 20:25
PROVIDERS: Emergency Provider Emergency Medicine; Family Provider Family Medicine; PCP Family Medicine
DX: K02.9 Dental caries, unspecified (principal)
CPT/HCPCS: 99282

== ENCOUNTER 2018-12-25 05:32 | Emergency (ER) | payer SELFPAY ==
[2018-12-25 05:34] VITALS: BP 145/107; PULSE 110; RESP 16; TEMP 37.2; O2SAT 95; BMI 21.4
[2018-12-25 05:42] VITALS: RESP 16
--- NOTE | 2018-12-25 06:03 | ED.VISSUMM ---
- ER Visit Summary Date of Service: 12/25/18 Chief Complaint: Alcohol detox History of Present Illness: The patient is a 48 M who presents requesting alcohol detox. Patient is a heavy daily drinker with last drink 1 hour prior to presentation. Patient states he normally drinks vodka. He is seeking help with detox so he can stop drinking. He does have a history of withdrawal seizures and hallucinations in the past. Patient is complaining of feeling depressed, insomnia and guilty. He denies any suicidal ideation and states he is a coward. He currently denies any vomiting, diarrhea, tremulousness, palpitations. No chest pain, shortness of breath or other associated symptoms. He denies any associated drug use. He does smoke tobacco. He denies any other medical conditions. He has been in detox in the past. Physical Examination: Vital signs: afebrile, blood pressure 145/107, tachycardic at 110, no hypoxia on room air General: well nourished, well developed, tearful Skin: warm, dry, no pallor HEENT: normocephalic and atraumatic; PERRL, EOMI, moist mucous membranes Cardiovascular: Tachycardic rate and rhythm without murmurs, no peripheral edema, 2+ pulses all distal extremities Respiratory: No increased work of breathing, lungs are clear to auscultation bilaterally, no rales, rhonchi or wheezing Abdominal: Abdomen is soft, nontender with normoactive bowel sounds, no guarding or rebound, no masses MSK: Moves all extremities, no deformities, normal strength Neuro: Awake and alert, oriented ?4. No facial droop, sensation and motor function intact and symmetric Test Results: Abnormal Lab Results 12/25/18 12/25/18 12/25/18 06:12 06:12 06:12 WBC 4.6 RBC 4.66 Hgb 15.2 Hct 43.7 MCV 93.8 MCH 32.6 H MCHC 34.8 RDW 14.3 RDW Differential 48.8 H Plt Count 37 L* MPV 9.1 Immature Gran % (Auto) 0.200 Neut % (Auto) 47.2 Lymph % (Auto) 35.8 [place] % (Auto) 9.5 Eos % (Auto) 5.6 H Baso % (Auto) 1.7 H Absolute Neuts (auto) 2.2 Absolute Lymphs (auto) 1.66 Total Counted Not Reportable Diff Path Review May foll Platelet Estimate MKD DEC Sodium 139 Potassium 2.9 L Chloride 98 Carbon Dioxide 27.0 Anion Gap 14 BUN 10 Creatinine 0.72 Estim Creat Clear Calc 135.24 Est GFR (MDRD) Af Amer 150 Est GFR (MDRD) Non-Af 124 BUN/Creatinine Ratio 14.0 Glucose 111 H Calcium 8.7 Total Bilirubin 0.70 AST 206 H ALT 94 H Alkaline Phosphatase 70 Total Protein 8.2 Albumin 4.2 Globulin 4.0 Albumin/Globulin Ratio 1.0 Ur Drug Screen Comment Ethyl Alcohol 337.0 H* 12/25/18 07:00 WBC RBC Hgb Hct MCV MCH MCHC RDW RDW Differential Plt Count MPV Immature Gran % (Auto) Neut % (Auto) Lymph % (Auto) [place] % (Auto) Eos % (Auto) Baso % (Auto) Absolute Neuts (auto) Absolute Lymphs (auto) Total Counted Diff Path Review Platelet Estimate Sodium Potassium Chloride Carbon Dioxide Anion Gap BUN Creatinine Estim Creat Clear Calc Est GFR (MDRD) Af Amer Est GFR (MDRD) Non-Af BUN/Creatinine Ratio Glucose Calcium Total Bilirubin AST ALT Alkaline Phosphatase Total Protein Albumin Globulin Albumin/Globulin Ratio Ur Drug Screen Comment Ethyl Alcohol Medications Given Sodium Chloride () 1,000 mls @ 999 mls/hr IV .Q1H1M ONE Stop: 12/25/18 07:42 Last Admin: 12/25/18 07:05 Dose: 999 mls/hr Potassium Chloride () 10 meq in 100 mls @ 100 mls/hr IV BOLUS Q1H [facility] Stop: 12/25/18 08:44 Last Admin: 12/25/18 07:05 Dose: 100 mls/hr Potassium Chloride () 10 meq in 100 mls @ 100 mls/hr IV [facility]OLUS Q1H [facility] Stop: 12/25/18 09:14 Potassium Chloride (K-Dur) 40 meq PO X1 [facility] Stop: 12/25/18 07:09 Emergency Department Course and Treatment: Patient presents requesting alcohol detox and does have a history of significant withdrawal symptoms including seizure and hallucinations. Patient has [employer] insurance. Patient's CIWA score is currently a 1. Medical screening exam was performed while awaiting social work consult/[facility] consult. We discussed that patient can be evaluated by [facility] when they arrive this morning but that he will have to meet a certain score to be considered in active withdrawal and appropriate for the inpatient detox program. Medical screening concerning for hypokalemia of 2.9. Labs also consistent with alcoholic hepatitis and chronic thrombocytopenia. EKG showed no concerning findings. Patient started on potassium repletion. Discussed with Dr. Knight for admission for treatment of hypokalemia and alcohol detox in a high-risk patient with history of withdrawal seizures. Treatment Plan: [] Disposition: [] Impression: hypokalemia, alcohol intoxication/detox, chronic thrombocytopenia, alcoholic hepatitis This note was generated with [employer] Mediaation software. It may contain incorrect words, spelling, and punctuation that were not noted in review of the chart prior to signing ED Disposition - Plan for ED Patient: Referrals: Elmer Bolton MD [Primary Care Provider] -
[2018-12-25 06:39] LABS: AST(SGOT) 206 U/L (15-37); Alanine Aminotransfer ALT/SGPT 94 U/L (16-61); Albumin, Serum 4.2 g/dL (3.2-5.0); Alkaline Phosphatase 70 U/L (45-117); Anion Gap 14 (5-15); BUN 10 mg/dL (7-18); Calcium,Total 8.7 mg/dL (8.5-10.1); Chloride 98 mmol/L (98-107); Creatinine, Serum 0.72 mg/dL (0.70-1.30); EST Glomerular Filtration Rate 124 mL/min (>60); Est Glom Filt Rate - Afr Amer 150 mL/min (>60); Estimated Creatinine Clearance 135.24 ml/min; Glucose 111 mg/dL (74-106); Potassium 2.9 mmol/L (3.5-5.1); Protein, Total 8.2 g/dL (6.4-8.2); Sodium Level 139 mmol/L (136-145)
[2018-12-25 06:40] LABS: Absolute Lymphocyte Count 1.66 X10^3/ul (0.83-4.51); Absolute Neutrophil Count 2.2 X10^3/uL (2.0-7.7); Basophil# 0.08 X10^3/uL; Basophil% 1.7 % (0-1); Eosinophil# 0.26 X10^3/uL; Eosinophils% 5.6 % (0-5); Hematocrit 43.7 % (40-54); Hemoglobin 15.2 g/dl (13.0-16.5); Lymphocyte # 1.66 X10^3/ul (4.0); Lymphocyte % 35.8 % (19-41); Mean Corp Hgb Conc 34.8 g/gl (32-36); Mean Corpuscular Hgb 32.6 pg (27.0-32.0); Mean Corpuscular Volume 93.8 fL (80-94); Mean Platelet Vol. 9.1 fl (6.2-12.0); Monocyte# 0.44 X10^3/uL; Monocyte% 9.5 % (0-10); Neutrophil # 2.19 X10^3/uL (2.7-7.7); Neutrophil % 47.2 % (47-70); RBC Distribution Width CV 14.3 % (11.6-14.6); RBC Distribution Width SD 48.8 fl (35.1-43.9); Red Blood Count 4.66 M/mm3 (4.6-6.2); White Blood Count 4.6 K/mm3 (4.4-11.0)
[2018-12-25 06:41] LABS: POSITIVE COUNT YES; POSITIVE DIFFERENTIAL NO; POSITIVE MORPHOLOGY NO; Platelet Count 37 K/mm3 (150-450)
[2018-12-25 06:42] LABS: Differential Indicated SCAN CRITERIA MET
--- NOTE | 2018-12-25 06:42 | EKG12_ITS ---
Test Reason : SUBSTANCE ABUSE Blood Pressure : / mmHG Vent. Rate : 086 BPM Atrial Rate : 086 BPM P-R Int : 168 ms QRS Dur : 076 ms QT Int : 364 ms P-R-T Axes : 048 -07 021 degrees QTc Int : 435 ms Normal sinus rhythm Normal ECG Confirmed by NEYDA PRICE, KAT ([id number]), editor news HANNA COLLINS ([id number]) on 12/26/2018 8:21:09 AM Referred By: LAURY Confirmed By:KAT FAYE MD
[2018-12-25 06:44] LABS: Platelet Estimate MKD DEC (ADEQ)
--- NOTE | 2018-12-25 07:03 | NURSING ---
DR RUSSELL SCHAEFFER
[2018-12-25] MEDS: 0.9% Normal Saline 1,000 ML 999 ML IV (07:05)
[2018-12-25] MEDS: Potassium Chloride 10mEq/100mL 10 MEQ/100 ML IV.SOLN. 100 MEQ IV BOLUS ×4 (07:05→10:55)
--- NOTE | 2018-12-25 07:22 | NURSING ---
DR WELLS IN WITH PATIENT
[2018-12-25 07:29] LABS: Amphetamine Urine VISTA NEGATIVE (<1000 ng/mL); Barbiturate Urine VISTA NEGATIVE (< 200 ng/mL); Benzodiazepine Urine VISTA NEGATIVE (< 200 ng/mL); Cocaine Urine VISTA NEGATIVE (< 300 ng/mL); Ecstacy Urine VISTA NEGATIVE (< 500 ng/mL); Methadone Urine VISTA NEGATIVE (< 300 ng/mL); PCP Urine VISTA NEGATIVE (< 25 ng/mL); THC Urine VISTA NEGATIVE (< 50 ng/mL); Vista UDS pH Range 7
[2018-12-25 10:33] VITALS: BP 114/78; PULSE 83; RESP 16; O2SAT 96
--- NOTE | 2018-12-25 10:54 | CON.PCM_ITS ---
Problem List (1) Hypokalemia Status: Acute (2) Alcohol abuse Status: Chronic Reason for Consult Date of Consultation: 12/25/18 Reason for Consultation: hypokalemia History of Present Illness: The patient is a 48 year old M who presents today seeking treatment for alcohol withdrawal. Patient's last alcohol was around 4:30 AM. Patient states that for the past several weeks he has been consuming roughly a bottle of low proof vodka. He just expressed that he wants to quit. Patient's intake CIWA was 1. Patient was noted to have a low potassium of 2.9 and was written for 20 MeQs of IV potassium. The hospitalist team was contacted for admission for the hypokalemia. [] Past Medical History Past Medical History (Chronic Problems): Chronic Problems Alcohol abuse (Chronic) Anxiety (Chronic) Thrombocytopenia (Chronic) Hypokalemia (Chronic) Arthritis of left hip (Chronic) Tobacco dependency (Chronic) Allergies diphenhydramine HCl [From Benadryl] Adverse Reaction (Verified 12/25/18 05:34) Swelling mushroom Adverse Reaction (Verified 12/25/18 05:34) Vomiting Home Medications: Ambulatory Orders Medication Instructions Recorded Multivitamin [Animal Chews] 1 each PO DAILY #1 tab.chew 12/25/18 Ondansetron [Zofran] 8 mg PO Q8H PRN PRN #20 tablet 12/25/18 Surgical History: tonsillectomy Psychiatric History: No pertinent psych hx Smoking Status: Heavy Smoker (>10/day) Tobacco Use: Cigarettes Alcohol: Heavy Drugs: None - *Family History Sibling History Items: No pertinent history Maternal History Items: Hypertension Paternal History Items: No pertinent history Review of Systems Constitutional: Denies: Anorexia, Chills, Fever Eyes: Denies: Blurred vision, Double vision HEENT: Denies: Head Aches, Sinus Congestion, Sinus Drainage Cardiovascular: Denies: Chest Pain, Palpitations Respiratory: Denies: Cough, Shortness of breath at rest, Sputum production Gastrointestinal: Reports: Nausea. Denies: Abdominal Pain, Vomiting Genitourinary: Denies: Dysuria Musculoskeletal: Denies: Joint Pain, Joint Tenderness Skin: Denies: Rash, Wounds Neurological: Denies: Balance problems, Blurred vision, Double vision, Slurred speech, Difficulty swallowing, Headaches, Numbness, Tremor Psychiatric: Reports: Anxiety. Denies: Depression Hematologic/ Lymphatic: Denies: Easy Bruising, Easy Bleeding, Hx of blood clot Comment: No hallucinations though he has had auditory hallucinations in the past. A 10 point review of systems were negative except as mentioned in the history of present illness and the other review of systems. Patient Problems: Active and Suspected Problems Hypokalemia (Acute) - Physical Exam General: Alert, Cooperative, No apparent distress HEENT: Atraumatic, Normocephalic Oral: Moist Mucosa, No Gingival or Mucosal Lesions/ Ulcerations Neck: No Nodes, Thyroid Normal Size and Texture Lungs: Clear to auscultation, Normal air movement, No rhonchi, No wheeze Cardiovascular: Regular rate, Regular Rhythm, Normal S1, Normal S2, No murmurs Abdomen: Bowel Sounds Present, Soft, Non Tender, Non-Distended, No Hepato-sp lenomegaly Extremities: No edema, No Calf Tenderness Psych/Mental Status: Normal Affect, Appropriate Vital Signs Temp Pulse Resp BP Pulse Ox 37.2 C 83 16 114/78 96 12/25/18 05:34 12/25/18 10:33 12/25/18 10:33 12/25/18 10:33 12/25/18 10:33 Oxygen Delivery Method Room Air Weight: 77.9 kg Body Mass Index (BMI) 21.4 Finger Stick Blood Glucose 120 Laboratory Tests Past 24 Hrs 12/25/18 12/25/18 12/25/18 06:12 06:12 06:12 WBC 4.6 RBC 4.66 Hgb 15.2 Hct 43.7 MCV 93.8 MCH 32.6 H MCHC 34.8 RDW 14.3 RDW Differential 48.8 H Plt Count 37 L* MPV 9.1 Immature Gran % (Auto) 0.200 Neut % (Auto) 47.2 Lymph % (Auto) 35.8 Mcdowell % (Auto) 9.5 Eos % (Auto) 5.6 H Baso % (Auto) 1.7 H Absolute Neuts (auto) 2.2 Absolute Lymphs (auto) 1.66 Total Counted Not Reportable Diff Path Review May foll Platelet Estimate MKD DEC Sodium 139 Potassium 2.9 L Chloride 98 Carbon Dioxide 27.0 Anion Gap 14 BUN 10 Creatinine 0.72 Estim Creat Clear Calc 135.24 Est GFR (MDRD) Af Amer 150 Est GFR (MDRD) Non-Af 124 BUN/Creatinine Ratio 14.0 Glucose 111 H Calcium 8.7 Total Bilirubin 0.70 AST 206 H ALT 94 H Alkaline Phosphatase 70 Total Protein 8.2 Albumin 4.2 Globulin 4.0 Albumin/Globulin Ratio 1.0 Urine Opiates Screen Urine Methadone Screen Ur Barbiturates Screen Ur Phencyclidine Scrn Ur Amphetamines Screen U Methamphetamin-MDMA U Benzodiazepines Scrn Urine Cocaine Screen U Cannabinoids Screen Ur Drug Screen Comment Ethyl Alcohol 337.0 H* 12/25/18 07:00 WBC RBC Hgb Hct MCV MCH MCHC RDW RDW Differential Plt Count MPV Immature Gran % (Auto) Neut % (Auto) Lymph % (Auto) Mcdowell % (Auto) Eos % (Auto) Baso % (Auto) Absolute Neuts (auto) Absolute Lymphs (auto) Total Counted Diff Path Review Platelet Estimate Sodium Potassium Chloride Carbon Dioxide Anion Gap BUN Creatinine Estim Creat Clear Calc Est GFR (MDRD) Af Amer Est GFR (MDRD) Non-Af BUN/Creatinine Ratio Glucose Calcium Total Bilirubin AST ALT Alkaline Phosphatase Total Protein Albumin Globulin Albumin/Globulin Ratio Urine Opiates Screen NEGATIVE Urine Methadone Screen NEGATIVE Ur Barbiturates Screen NEGATIVE Ur Phencyclidine Scrn NEGATIVE Ur Amphetamines Screen NEGATIVE U Methamphetamin-MDMA NEGATIVE U Benzodiazepines Scrn NEGATIVE Urine Cocaine Screen NEGATIVE U Cannabinoids Screen NEGATIVE Ur Drug Screen Comment Ethyl Alcohol Assessment/Plan All Active Problems Hypokalemia (Acute) Hypoxia (Acute) Alcohol withdrawal (Acute) 1. Hypokalemia: likely due to poor nutritional intake. replace in ED. Follow up with Dr. Bolton for lab work. 2. Alcohol abuse: my calculated CIWA score is 2--no indication for inpatient treatment at this time. Recommended MVI. Patient states he already has paperwork to follow up with 180 and will initiate it himself. If patient's CIWA becomes worse to warrant admission during potassium infusion, then will formally admit the patient. Code Visit Office Visits / Consults: [id number] OP Consult L4
--- NOTE | 2018-12-25 11:02 | DCINST_ITS ---
- Discharge Diagnoses Current Active Problems: Current Active and Chronic Problems Hypokalemia (Acute) You will use the following diet at home:: No restrictions Your food should be the consistency of: Regular Your liquids should be the consistency of: Regular/Thin Discharge Activity: Return to Normal Activity Call your doctor if you observe: - - worsening agitation, hallucinations, tremulousness. Allergies/Adverse Reactions: Allergies diphenhydramine HCl [From Benadryl] Adverse Reaction (Verified 12/25/18 05:34) Swelling mushroom Adverse Reaction (Verified 12/25/18 05:34) Vomiting Medications to take at Discharge Multivitamin [Animal Chews] 1 each PO DAILY #1 tab.chew 12/25/18 Ondansetron [Zofran] 8 mg PO Q8H PRN PRN #20 tablet 12/25/18 The following prescriptions were given: Ondansetron [Zofran] 8 mg PO Q8H PRN PRN #20 tablet PRN Reason: nausea vomiting Multivitamin [Animal Chews] 1 each PO DAILY #1 tab.chew Primary Care Physician: Elmer Bolton MD [Primary Care Provider] - 12/31/18 Test Results: Test results from this visit will be discussed in further detail at your follow- up appointment, if applicable. Please Follow Up With: 180 When: at earliest convenience. Proposed Discharge Date: 12/25/18
--- NOTE | 2018-12-25 11:18 | CM.ED ---
Social Work Note Touched base with Marii at [facility] and informed that pt had last drink at 0430 and is not actively in DT's at this time. Inquired about services to assist with SP patients. Marii recommended reaching out to [employer] as they can assist with funding for uninsured individuals. Placed call to [employer] and left vm requesting a return phone call. SW to continue to follow and assist with discharge planning. Yuly Gordon, SAP TRAINER, DRE
--- NOTE | 2018-12-25 11:20 | ED.RN ---
pt to be discharged after infusion
--- NOTE | 2018-12-25 11:50 | ED.VISSUMM ---
- ER Visit Summary Date of Service: 12/25/18 Chief Complaint: [] History of Present Illness: The patient is a 48 M [] Physical Examination: [] Test Results: [] Emergency Department Course and Treatment: [] Treatment Plan: [] Disposition: [] Impression: [] This note was generated with [employer] dictation software. It may contain incorrect words, spelling, and punctuation that were not noted in review of the chart prior to signing ED Disposition - Plan for ED Patient: Disposition: Home or Assisted Living Instructions: ED Potassium Deficiency, ED Diet High Potassium Prescriptions: Ondansetron [Zofran] 8 mg PO Q8H PRN PRN #20 tablet PRN Reason: nausea vomiting Multivitamin [Animal Chews] 1 each PO DAILY #1 tab.chew Referrals: Elmer Bolton MD [Primary Care Provider] - 12/31/18 [employer] [STAFF PHYSICIAN] - Keep Anais appointment
--- NOTE | 2018-12-25 11:51 | CM.ED ---
Social Work Note Call back from Alex John with [employer] who states that he would like to speak with the pt on the phone. Phone provided to pt. After a approximately 10-15 minute conversation with [employer] staff pt scheduled an appointment on at 1300 for follow-up. Intends on discharging from [facility] today and going home. No further needs or concerns at this time. PLAN: Follow-up with [employer] on at 1300. PAMELA Wong, DRE
[2018-12-25 12:00] VITALS: BP 114/76; PULSE 76; RESP 16; O2SAT 97
[2018-12-25 14:12] LABS: Pathologist Review Reviewed
== END 2018-12-25 12:03 | disposition home or self-care (01) ==
PROVIDERS: Emergency Provider Emergency Medicine; Family Provider Family Medicine; PCP Family Medicine
DX: E87.6 Hypokalemia (principal); F10.229 Alcohol dependence with intoxication, unspecified; Y90.9 Presence of alcohol in blood, level not specified; D69.6 Thrombocytopenia, unspecified; K70.10 Alcoholic hepatitis without ascites; F32.9 Major depressive disorder, single episode, unspecified; F17.210 Nicotine dependence, cigarettes, uncomplicated
CPT/HCPCS: 80053; 80307; 80320; 85025; 93005; 96360; 96361; 99284; J7030; A4216; G0480

== ENCOUNTER 2020-03-25 09:43 | Emergency (ER) | payer MEDICAID, SELFPAY ==
[2020-03-25 09:44] VITALS: BP 145/77; PULSE 105; RESP 17; TEMP 36.7; O2SAT 100
--- NOTE | 2020-03-25 10:00 | ED.DCSUM_ITS ---
History of Present Illness Chief Complaint: Upper Extremity Injury Informant: Patient Narrative: Patient sustained a mechanical fall 2 days ago, he was walking and he thinks he tripped. He has no head injury most of his impact was left shoulder region. He has no neck pain no paresthesias. He is complaining of left-sided shoulder pain and he has noticed a significant contusion in that region. He has no elbow pain or any other injuries. Past Medical History - Allergies and Home Meds Allergies/Adverse Reactions: Allergies diphenhydramine HCl [From Benadryl] Adverse Reaction (Verified 03/25/20 09:44) Swelling mushroom Adverse Reaction (Verified 03/25/20 09:44) Vomiting Primary Care Physician: Elmer Bolton MD [Primary Care Provider] - Past Medical History: - - Noncontributory Surgical History: tonsillectomy Smoking Status: Heavy Smoker (>10/day) - Family History Sibling Family History: Reports: No pertinent history Maternal Family History: Reports: Hypertension Paternal Family History: Reports: No pertinent history Review of Systems General: Reports: - - No head injury or loss of consciousness Eyes: Denies: Visual changes - bilaterally Musculoskeletal: Reports: - - Left shoulder pain Skin: Reports: - - Shoulder contusion, ecchymoses Neurological: Denies: Weakness, Parasthesia, Numbness Hematologic: Reports: - - No anticoagulation. Denies: Easy bruising, Easy bleeding Physical Exam Vital Signs/Narrative: Vital Signs Temp Pulse Resp BP Pulse Ox 03/25/20 09:44 98.0 F 105 H 17 145/77 H 100 General: Well developed, No Acute Distress Head: Normocephalic, Atraumatic Eyes: Perrl ENT: Moist mucous membranes Neck: - - No C-spine tenderness Cardiovascular: Regular rate Respiratory: No distress, Chest nontender. Negative for: Chest tenderness Abdomen: Soft, Nontender Extremities: - - Left shoulder shows a significant contusion and ecchymoses throughout the shoulder, there is tenderness over the AC joint, patient has some tenderness with abduction greater than 90 degrees but is able to move his shoulder Skin: - - Ecchymoses as above Neurological: Normal Strength, Normal Sensation Psychological: Normal affect Diagnostic/Tx/Re-eval X-ray of the left shoulder interpreted by me shows normal orientation and positi on of the glenoid and humeral head. No signs of shoulder dislocation. Patient does have a complete AC joint separation. - Medical Decision Making Patient has a complete AC joint separation. He will be placed in a sling and followed up with orthopedics I will give him analgesia for home. ED Disposition - Plan for ED Patient: Disposition: Home or Assisted Living Diagnosis: Acromioclavicular joint separation, type 5 Instructions: ED Dislocation Joint Prescriptions: Hydrocodone Bitart/Apap 5-325 [[place] 5MG-325MG] 1 tablet PO Q4H PRN PRN 3 Days #16 tablet PRN Reason: Pain Transmission Status: Sent to [facility][id number] Referrals: Gricelda Ortiz DO [STAFF PHYSICIAN] - 3-5 Days
[2020-03-25] MEDS: HYDROcodone Bitartrate/Apap 5/325 Tablet PO (10:04)
--- NOTE | 2020-03-25 10:05 | RAD_ITS ---
STUDY: X-RAY - LEFT SHOULDER REASON FOR EXAM: Male, 49 years old. ANTERIOR/SUPERIOR PAIN AND BRUISING S/P FALL YESTERDAY TECHNIQUE: 4 view(s) of the shoulder. COMPARISON: None. FINDINGS: Normal glenohumeral articulation. There is widening of the AC joint, with displacement of the clavicle, consistent with a Type III acromioclavicular joint separation. Normal acromion. Normal humeral head and visualized proximal humerus. The soft tissue structures are unremarkable. Normal visualized pulmonary apex. RAD/Shoulder min 2 Views IMPRESSION: There is a type III separation of the left acromioclavicular joint. Electronically Signed: Saeed Gan, at 10:20 EDT , Service support ,
[2020-03-25 11:08] VITALS: BP 124/68; PULSE 74; RESP 15; O2SAT 98
--- OUTSIDE RECORDS SUMMARY | 2020-07-26 15:04 | XMS RPT_ITS | CCD ---
:1970 External Reference #:[id number] Author Organization [facility] Care Team Providers Name Role Phone Unavailable Unavailable Unavailable Results Result Name Value Range Unit Interpretation Flag Date Location plan of care on PLAN OF CARE HNO ID: [id number] Normal 06-22-20 [facility] Author: Laura Tyler (Forward Air Controller/Air Officer) Center ([id number]) Service: Pharmacy Author Type: Pharmacist Type: Plan of Care Filed: 06/22/2020 4:21 PM Note Text: DISCHARGE MEDICATION REVIEW BY PHARMACY Patient Name: Meryl Ogden Account #: Data Unavailable Admission Date: 06/16/2020 Date of Contact: June 22, 2020 Time of Contact: 4:21 PM Medication list was reviewed by a Pharmacist for drug intera ctions or drug related problems:Yes Below is a summary of pharmacist recommendations discussed w ith LIP: No Recommendations at this time from Discharge Medication Li st. Per neuro, patient is to continue Keppra for a total of 7 da ys. Laura Tyler, Forward Air Controller/Air Officer June 22, 2020 4:21 PM Medication List START taking these medications levETIRAcetam 1,000 mg tablet Commonly known as: KEPPRA Take 1 tablet by mouth twice daily for 4 doses. [facility] Carined walker Where to Get Your Medications These medications were sent to [facility] [address] [phone] Hours: Monday-Monday, 8am-6:30pm ? levETIRAcetam 1,000 mg tablet You can get these medications from any pharmacy Bring a paper prescription for each of these medications ? Bogdan [facility] nursing prog on NURSING HNO ID: [id number] Normal 06-22-2020 [facility] Author: Mercy StephensonRn) MANDY Saucedo General Service: Nursing Med ical Author Type: Registered Nurse Center Type: Nursing Progress Note ([id number]) Filed: 06/22/2020 11:54 AM Note Text: Nursing Progress Note Patient Name: Meryl Ogden Patient Location: [id number] Patient anxious to be discharged home, BP 149/106. Destinee Faye in STUDENT SERVICES ADVISOR notified, no new orders received. Will continue to monitor. This note was completed by: Mercy Saucedo RN case managem on CASE MANAGEM HNO ID: [id number] Normal 06-22-20 [facility] Author: Maggy Dhaliwal (Sw) [place] ([id number]) Service: ? Author Type: Shoder Filler Type: Care Mgt Progress Note Filed: 06/23/2020 11:57 AM Note Text: CARE MANAGEMENT PROGRESS NOTE SERVICE DATE: 06/23/2020 SERVICE TIME: 11:55 AM LOS: 5 days [facility] follow-up Per [facility], pt needs to schedule an appointment with his PCP. Called pt and LM explaining to make an appointment JOSUÉ with his PCP as we ll as provided [facility] phone number and informed him they are trying to get in touch with him for SOC. SIGNATURE: WILLIAM Quiroga PATIENT NAME: Meryl Ogden DATE: June 23, 2020 TIME: 11:55 AM PAGER/CONTACT #: [phone] CASE MANAGEM HNO ID: [id number] Normal 06-22-20 [facility] Author: Maggy Dhaliwal (Sw) [place] ([id number]) Service: ? Author Type: Shoder Filler Type: Care Mgt Progress Note Filed: 06/23/2020 11:34 AM Note Text: CARE MANAGEMENT DISCHARGE NOTE SERVICE DATE: 06/22/2020 SERVICE TIME: 3:50 PM LOS: 5 days Admission Date: 06/16/2020 DISCHARGE ARRANGEMENT (list agency and phone number) Discharge Arrangement: Home;Home Senior Care Care: PT;OT Provider Name: [facility] CAREGIVER ASSESSMENT: Caregiver is ready, willing and able to meet the patient's n eeds as recommended by the inter-professional team:: Yes Does the patient have an acute stroke diagnosis, or has the patient had a stroke during this admission?: No Patient's transition needs and plan for meeting these needs: Home with [facility] HANDOFF COMMUNICATION: Handoff to: Primary Care Physician Primary Care Physician Name/Phone: Dr. Glover TRANSPORTATION ARRANGEMENTS: Transportation Arrangements: Taxi Cab Voucher ADDITIONAL CONTACT RESOURCES: Maury Solares Pt to go home with [facility] via cab ride at 5PM. SOC in 24-48hrs . SIGNATURE: WILLIAM Quirgoa PATIENT NAME: Meryl Ogden DATE: June 22, 2020 TIME: 3:50 PM PAGER/CONTACT #: [phone] CASE MANAGEM HNO ID: [id number] Normal 06-22-20 [facility] Author: Maggy Canela) Isra [place] ([id number]) Service: ? Author Type: Shoder Filler Type: Care Mgt Progress Note Filed: 06/22/2020 2:46 PM Note Text: CARE MANAGEMENT PROGRESS NOTE SERVICE DATE: 06/22/2020 SERVICE TIME: 2:36 PM LOS: 5 days Needs Prior to Discharge: Other: See Comment;Discharge Transportation(Accepting [facility] Agency) Referrals for [facility] PT/OT sent to [facility], [facility], [facility],and [facility], [facility], [facility], [place] [facility]), [facility], [place] [facility], [facility] all unable to accept pt. Escalated this to mine safety manager for assistance. Additional referrals sent to [facility], [facility], [facility], [facility], [facility], [facility], and [facility]. Awaiting replies . SIGNATURE: WILLIAM Quiroga PATIENT NAME: Meryl Ogden DATE: June 22, 2020 TIME: 2:36 PM PAGER/CONTACT #: [phone] therapy nt on 06-21 THERAPY HNO ID: [id number] Normal 06-21-2020 [facility] NT Author: Yuly StephensonOt/L) Dorothea General Service: ? Medical Author Type: Occupational Therapist Center Type: Therapy (PT/OT/Speech/Resp) ([id number]) Filed: 06/21/2020 9:58 AM Note Text: Occupational Therapy Treatment SERVICE DATE: 06/21/2020 SERVICE TIME: 924 to 939 ROOM: [id number] Recommended Discharge Disposition: Home OT Recommended Discharge Disposition Comments: Patient with sig nificant improve in functional mobility and ADL performance since OT evaluation. Patient is able to complete self-care and functional mobilit y with supervision-contact guard assist. Recommend home with increa sed support from family and friends with home OT progressing to outpatie nt OT as appropriate to address remaining barriers and concerns. Justification For Post Acute Needs: Anticipate patient will tolerate 3 hours of daily therapy at the time of admission to post-acut e setting;Living the community premorbidly;Motivated;Willing t o participate;Good premorbid functional status;Anticipated com munity discharge Anticipated Discharge Needs: Physical Assist at Home;Supervi renetta at Home Physical Assist at Home for: Cleaning;Laundry;Finances;Meals ;Medication Management;Shopping;Transportation;Stairs;Safety Supervision at Home due to: Decreased safety awareness;Impai red cognition Recommended Discharge Equipment: Shower Chair;Wheeled Walker OT Recommendations to Nursing: To Bathroom for ADL?s /and or Toileting;OOB for meals;Transfer to Chair;With assist of 1 person Equipment: (gait belt ) OT 6 Clicks Score: 20 Precautions/Activity Restrictions: Fall Risk;Bed/Chair Alarm ASSESSMENT: Patient progressing well towards OT goals with significant i mprovement in cognition, functional balance and mobility allowing for impr hector ADL and functional transfer performance. Patient is now able to comp lete ADL tasks with supervision to stand by assist, functional transfers an d mobility with contact guard assist. Orientation and cognition signifi cantly improved, still some concerns with safety awareness, insight into deficits and judgement but overall improved - completed home safety a nd judgement activity demonstrating min-mod deficits (for example, did no t say he would unplug the toaster before trying to remove toast; would try to reason with burglar if they entered the home). Patient reports he has fa vera and friends that can stay with him and assist with IADLs as need ed - strongly against placement at acute rehab or longterm facility at discharge. Recommend home with increased support and home OT when medic ally stable. OT will continue to follow. Patient Disposition at Start of Session: Supine in Bed;Call Esquivel in Reach;Bed Alarm Patient Disposition at End of Session: Supine in Bed;Call Be ll in Reach;Bed Alarm Tolerated Full Session Occupational Therapy Problem List: Cognitive Deficit;Educati on Deficit;Safety Deficits;Impaired Self Care;Decreased Activit y Tolerance;Decreased Strength;Functional Mobility Impairment; Balance Impaired Patient /Caregiver Goals: Care For Self;Go Home Goals for Plan of Care: Feeding with: (GOAL MET 06/21/20 PHONG ) Grooming with: Modified Independent Upper Body Bathing with: Supervision Upper Body Dressing with: Set Up Lower Body Bathing with: Supervision Lower Body Dressing with: Set Up Toilet Hygiene with: Supervision Toilet Transfer with: Supervision Tolerate (minutes of functional activity): 20 Functional Activity with: Supervision Additional Goal 1: Patient will complete ADL rotuine and fun ctional mobility with 10% or less verbal cues for safety awareness a nd judgement. Additional Goal 2: Patient will complete functional mobility during ADL routine using appropriate assistive device with supervision. Additional Goal 3: Patient will answer 5/5 home safety quest ions accurately. Increased Awareness of Cognitive Impairments as Related to A DL's/IADL's: Demonstrated;Verbalized Progress Toward Goals: Progressing as expected Rehab Potential: Good PLAN: Treatment Frequency (times per week): 5(2-5) Current admission Treatment Interventions: Education;Self Care / Home Manageme nt;Energy Conservation Training;Strengthening;Functional Mobility Clarke tyrell;Balance Training;Cognitive Training Plan of Care developed with: Patient TREATMENT INTERVENTIONS: Therapy Diagnosis: Reduced mobility-other;Decreased activiti es of daily living (ADL);Muscle Weakness (generalized);Unsteadiness on f eet;General symptoms and signs-other;Signs and Symptoms Involving Cognit ritesh Functions and Awareness Interventions Provided: Self Senior Care Management (52465);Co gnitive Training (62565 and 42427) 2020 New Self Senior Care Management (24067) Treatment Minutes: 7 Skilled Intervention(s): Instructed in hand placement and sequencing of supine to sit and sit to stand transfers at edge of bed. Provided verbal and tactile cues for safety during functiona l mobility to and from bathroom and during toilet transfer. Provided opportunity to participate in lower body dressing t ask seated edge of bed with verbal cues for sequencing; patient able to complete with stand by assist, demonstrating good dynamic sitting balance. Discussed new discharge recommendations in detail with katlyn fulton, need for physical assist and increased support at home. Patient slot router tive, verbalized understanding. Cognitive Training Per First 15 Minutes (63555) 2020: 8 1 unit Skilled Intervention(s): Facilitated participation in home safety and judgement activ ity. Patient given 15 questions with focus on home safety, judgement and emergency preparedness. Patient completed with score of 11/15 - requir ed cues for more thorough answers and for abstract reasoning. (Stated he would try to reason with burglars if they broke into his home I.e. why d o you want all of my rare books?; stated he would only veneer puller when car was smoking, did not state he would exit; would not unplug toaster prior to removing toast). Reviewed answers with patient; receptive, verbalized understanding. Total Timed Code Treatment Minutes: 15 Total Treatment Time (minutes): 15 SUBJECTIVE: Current Hospital Course: Chart reviewed; [facility] protocol izabella felix admission. Reason for Occupational Therapy Consult: Progressive mobilit y protocol Relevant Past Medical History: alcohol abuse, fall x 3 years ago with head bleed Patient Report: I am feeling much much better. Agreeable t o participate. No pain or dizziness. Pain: 0/10 Home Environment Patient Lives With: Self/Alone Assistance Available: None Entry To Home: Stairs Number Of Stairs Into Home: 12 Number Of Stairs To Bed/Bath: 0 Tub/Shower Type: walk in shower no seat Laundry: in apartment, patient usually completes Equipment Owned: Cane;Grab Bars-Shower;Wheeled Walker(Does n ot use any assistive device now ) Prior Functional Level: Within Functional Limits Prior Functional Level Comments: Ambulates without assist, d oes his own ADLs and IADLs. uses public transportation OBJECTIVE: Cognition/Communication Deficits Orientation Deficits: Not oriented to Place(Knew [place]; didnt know city (he is from [place])) Responsiveness: Alert;Awake Follows Commands: 2-step Commands;3-step Commands Cueing to Follow Commands: Minimum Attention Deficits: Divided Memory Deficits: Short Term Executive Function Deficits: Judgement;Insight to Deficits;P gio Solving;Safety Awareness Judgement Deficit: Minimal impairment Insight to Deficits: Minimal impairment Problem Solving Deficit: Minimal impairment Safety Awareness Deficit: Minimal impairment CURRENT FUNCTIONAL STATUS: Current Activities of Daily Living Assist Level Feeding Independent Grooming Contact Guard Assistance Bathing Upper Body Stand By Assistance Bathing Lower Body Contact Guard Assistance Dressing Upper Body Stand By Assistance Dressing Lower Body Contact Guard Assistance Toileting Contact Guard Assistance Functional Mobility Assist Level Rolling Supine to Sit Supervision Sit to Supine Supervision Scooting Supervision Sit to Stand Contact Guard Assistance Stand to Sit Contact Guard Assistance Bed to Chair Toilet/Commode Contact Guard Assistance Functional Mobility Contact Guard Assistance (none) Functional Mobility Comments: Somewhat unsteady on feet; dec reased proprioception and weakness right LE noted during mobility. Balance: Static Sitting;Dynamic Sitting;Static Standing;Negar lesvia Standing Static Sitting Balance: Normal Patient able to maintain stea dy balance without handhold support Dynamic Sitting Balance: Good Patient accepts moderate chall enge, able to maintain balance while picking up object off floor Static Standing Balance: Fair Patient able to maintain jordan ce with handhold support, may require occasional minimal assistance Dynamic Standing Balance: Fair Patient accepts minimal chall enge, able to maintain balance while turning head/trunk Activity Tolerance: Standing Activity;Sitting Activity Sitting Activity: ADL and assessment at edge of bed Sitting Activity Tolerance (in minutes): 10 Standing Activity: Functional mobility to and from bathroom Standing Activity Tolerance (in minutes): 2 Please see discipline specific clinical documentation [facility] for complete details for this therapy evaluation/treatment. Orie nted to call ball use, need for assist when up out of bed. Bed alarm enga ged. SIGNATURE: ALINE Don/Sofie PATIENT NAME: Meryl Ogden DATE: June 21, 2020 TIME: 9:47 AM THERAPY HNO ID: [id number] Normal 06-21-2020 [facility] Author: Kentrell (PtZahraa Bennett General Service: Physical Therapy Medical Author Type: Physical Therapist Center Type: Therapy (PT/OT/Speech/Resp) ([id number]) Filed: 06/21/2020 9:07 AM Note Text: Physical Therapy Treatment SERVICE DATE: 06/21/2020 SERVICE TIME: 0835 to 0900 ROOM: [address] [place] [address] Recommended Discharge Disposition: Home PT Recommended Discharge Disposition Comments: Patient with muc h improved functional mobility this date with improved safety awareness /cognition. PT recommends home health serviecs to assist with improving activity tolerance upon return home. Justification For Post Acute Needs: Anticipate patient will tolerate 3 hours of daily therapy at the time of admission to post-acut e setting;Living the community premorbidly;Good premorbid func tional status;Medically complex;Motivated PT Recommendations to Nursing: Transfer to/from chair;OOB fo r Meals;With assist of 2 people Device: Wheeled Walker PT 6 Clicks Score: 22 Precautions/Activity Restrictions: Fall Risk;Bed/Chair Alarm;Lines/Tubes/Drains ASSESSMENT : Patient with good progress towards and has met bed mobility, transfer, and ambulation goals this date. Goals updated as needed to [facility] reflect progress. Patient at this time is functioning at a level of supervision/ stand by assist for bed mobility/transfers and contact guard assist for ambulation up to 100'x1 without assistive device. Patient di splays much improved cognitive status and is aANDO x 3 this date. PT is recommending home health therapy upon return home at this time to allow f or improved activity tolerance and safe return to community ambulation. Patient Disposition at Start of Session: Supine in Bed;Call Esquivel in Reach;Bed Alarm Patient Disposition at End of Session: Supine in Bed;Call Be ll in Reach;Bed Alarm Tolerated Full Session (cognition) Physical Therapy Problem List: Education Deficit;Safety Defi cits;Decreased Strength;Functional Mobility Impairment;Balance Impaired Patient /Caregiver Goals: Go Home Goals for Plan of Care: Able to perform HEP with: Independent Transfer supine to/from sit with: Independent Transfer sit to/from stand with: Independent Ambulate with: Independent Distance: 150'x1 Device: No Device Progress Toward Goals: Progressing as expected Rehab Potential: Good PLAN: Treatment Frequency (times per week): 5(2-4) Current admission Treatment Interventions: Education;Strengthening;Functional Mobility Training;Balance Training;Neuromuscular Re-education Plan of Care developed with: Patient TREATMENT INTERVENTIONS: Therapy Diagnosis: Reduced mobility-other;Muscle Weakness (generalized);Unsteadiness on feet Interventions Provided: Gait Training (37581);Therapeutic Ex ercise (79268) Therapeutic Exercise (75554) Treatment Minutes: 10 1 unit Skilled Intervention(s): Patient completed seated open kinet ic chain active range of motion including marching, long arc quads, h amstring curls, heel raises, and hip abduction 2x15 without added res istance to increase strength required for safe performance of all transfers/ambulation. Patient with increased fatigue reporte d with exercise and requires rest breaks. Occasional Verbal cues pr ovided for proper performance. Gait Training (37302) Treatment Minutes: 15 1 unit Skilled Intervention(s): Instruction in sit to stand techniq ue with proper hand placement and body positioning at edge of bed/chair, In struction in stand to sit technique with LE's touching chair/bed and reac kimani back for surface, Instruction in sequencing, gait pattern, Instructio n in correction of gait deviations up to 100'x1 without assistive device at contact guard assist level. PT provided Verbal cues to incre ase step length and to maintain upright posture with good carryover. No loss of balance noted. Instruction in stair negotiation up and down 4 stairs with b ilateral upper extremities on 2 arm rails at contact guard assist level. Pa tient with no instability or loss of balance noted during stair negotiatio n. Total Timed Code Treatment Minutes: 25 Total Treatment Time (minutes): 25 SUBJECTIVE: Current Hospital Course: Chart reviewed and no significant m edical updates relevant to therapy were noted Reason for Physical Therapy Consult : fall, SDH Relevant Past Medical History: alcohol abuse, fall x 3 years ago with head bleed Patient Report: I would prefer to just go home if possible Home Environment Patient Lives With: Self/Alone Assistance Available: None Entry To Home: Stairs Number Of Stairs Into Home: 12 Number Of Stairs To Bed/Bath: 0 Tub/Shower Type: walk in shower no seat Laundry: in apartment, patient usually completes Equipment Owned: Cane;Grab Bars-Shower;Wheeled Walker(Does n ot use any assistive device now ) Prior Functional Level: Within Functional Limits Prior Functional Level Comments: Ambulates without assist, d oes his own ADLs and IADLs. uses public transportation OBJECTIVE: CURRENT FUNCTIONAL STATUS: Current Functional Mobility Assist Level Additional Informat ion Rolling Supervision Supine to Sit Supervision Sit to Supine Supervision Scooting Sit to Stand Stand By Assistance Stand to Sit Stand By Assistance Bed to Chair Toilet/Commode Gait Contact Guard Assistance Gait Device: None Gait Distance (feet): 100'x1 Stairs Contact Guard Assistance Stairs Device: Rail Number of Stairs: 4 Curb Step Car Transfer General Deviations/Observations: Lateral sway increased;[place] nce decreased;Wide base of support;Step length decreased Balance: Static Sitting;Static Standing Static Sitting Balance: Good(close SBA d/t cognition and imp ulsive) Patient able to maintain balance without handhold support, l imited postural sway(close SBA d/t cognition and impulsive) Static Standing Balance: Fair(min A) Patient able to maintai n balance with handhold support, may require occasional minimal assist ance(min A) Activity Tolerance: Sitting Activity;Standing Activity Sitting Activity: static sit EOB Sitting Activity Tolerance (in minutes): 4 Standing Activity: static stand with min A x 2 trials Standing Activity Tolerance (in minutes): 1(each trial) -HLM: 7: Walk 25 feet or more Please see discipline specific clinical documentation [facility] e[facility] for complete details for this therapy evaluation/treatment. SIGNATURE: Kentrell Bennett PT PATIENT NAME: Meryl Ogden DATE: June 21, 2020 TIME: 9:03 AM progress on 2020-06 PROGRESS HNO ID: [id number] Normal 06-21-2020 [facility] Service: General Surgery ([id number]) Author Type: Nurse Practitioner Type: Progress Notes Filed: 06/21/2020 10:31 AM Note Text: Trauma Surgery Progress Note SERVICE DATE: 06/21/2020 Trauma Service Pager: For questions or concerns Mon-Fri 6a-5p please page [phone]. After 5pm and on Weekends and Holidays, please page [phone] if in ICU or [phone] if on RNF. SUBJECTIVE: NAEON. Patient reports feeling well today and hopeful for [facility] home. Tolerating diet. Reports mild headache relieved by tylenol. Denies dizziness, chest pain, SOB, n/v. OBJECTIVE: Vitals: Temp (24hrs), Av ?C (98.6 ?F), Min:36.8 ?C (98.2 ?F), Ma x:37.2 ?C (99 ?F) BP 143/100 Pulse 89 Temp 37 ?C (98.6 ?F) (Oral) Resp 1 8 Ht 190.5 cm (6' 3) Wt 68.5 kg (150 lb 14.5 oz) SpO2 96% BMI 18.86 kg/m? O2 Therapy: Room Air IANDO: Date 06/20/20 07 - 06/21/20 0659 06/21/20699 - 06/22/20 0659 Shift 9742-3891 4044-1349 5929-2866 24 Hour Total 4158-7379 4530-1017 7835-4094 24 Hour Total INTAKE PO 240 240 PO 240 240 IV 50 50 Volume (mL) (magnesium sulfate in sterile water 2 g in steri le water 50 ml) 50 50 Shift Total 290 290 OUTPUT Urine 1300 8888 314 3760 200 200 Void (ml) 1300 8683 471 9025 200 200 Shift Total 1300 7973 318 6701 200 200 Weight (kg) 68.5 68.5 68.4 68.4 68.4 68.4 68.4 68.4 MEDICATIONS Current Facility-Administered Medications Medication Dose Route Frequency - propranolol 10 mg tab(s) (INDERAL) 10 mg ORAL ONCE - LORazepam 2 mg (ATIVAN) 2 mg ORAL q 1 H PRN Or - LORazepam 2 mg injection (ATIVAN) 2 mg INTRAVENOUS q 1 H P RN - LORazepam 4 mg (ATIVAN) 4 mg ORAL q 1 H PRN Or - LORazepam 4 mg injection (ATIVAN) 4 mg INTRAVENOUS q 1 H P RN - nicotine 7 mg/24 hr 1 Patch (NICODERM) 1 Patch TRANSDERMAL DAILY And - nicotine -- REMOVE patch OTHER DAILY And - nicotine - verify patch OTHER q 8 H - levETIRAcetam 1,000 mg tab(s) (KEPPRA) 1,000 mg ORAL BID - thiamine 100 mg tab(s) (VITAMIN B1) 100 mg ORAL/FEEDING TU BE TID - folic acid 1 mg tab(s) 1 mg ORAL DAILY - therapeutic multivitamin-minerals tablet (THERA-M PLUS) 1 tablet ORAL DAILY - acetaminophen 975 mg tab(s) (TYLENOL) 975 mg ORAL q 6 H - oxyCODONE IR 2.5-5 mg tab(s) (ROXICODONE) 2.5-5 mg ORAL q 6 H PRN - ondansetron 4 mg tab(s) (ZOFRAN) 4 mg ORAL q 6 H PRN Or - ondansetron (PF) 4 mg injection (ZOFRAN) 4 mg INTRAVENOUS q 6 H PRN Labs: Recent Labs 06/20/20 0235 06/19/20 0335 NA 135* 137 K 3.9 see below CHLOR 98 101 CO2 26 25 BUN 12 8* CREAT 0.54* 0.52* GLUC 112* 106* ANION 11 11 CA 9.7 9.2 MG -- 1.7 WBC 4.78 5.07 HB 12.7* 12.6* HCT 36.3* 36.2* PLT 70* 56* PHYSICAL EXAM: Genl: Appears age appropriate. No acute distress. Resting co mfortably. Head/Face: Normocephalic. Atraumatic. Eyes: EOMI. Sclera not icteric, bilaterally injected Neck: No mid-line masses. Supple Resp: RA, no cough or wheeze CVS: RRR as above; 2+ pulses at RA GI: Abdomen is soft, non-tender, not distended. MSK: Extremities without clubbing, cyanosis, edema. Normal R OM x 4. Skin: Warm and dry. Not jaundiced. Neuro: AANDOx3. Strength and sensation normal. LEE. GCS15. Psych: Normal mood. Normal affect. Appropriate insight into current situation. ASSESSMENT AND PLAN: Active Hospital Problems Diagnosis Date Noted - Fall 06/21/2020 - Subdural hematoma (HCC) 06/17/2020 - Thrombocytopenia (HCC) 06/17/2020 - Alcohol abuse 06/17/2020 - Alcohol related seizure (HCC) 06/17/2020 - Ataxia after head trauma 06/17/2020 49 year old male?with a h/o chronic alcohol abuse presents t o CCAG with a subdural hematoma?s/p?fall from his porch. ? Imaging performed: 1. CT HN 2. CXR PXR Traumatic Injuries: 1. SDH Operations/Procedures: 1. None Care Plan: 1. SDH 1. Non-op per NSGY 2. Keppra x7 days 2. ETOH abuse 1. Has not required ativan or haldol for >48h 2. Significant cognitive improvement 3. Current diet order: DIET REGULAR 4. Pain regimen: Scheduled tylenol; prn oxy 5. Bowel regimen: n/a 6. Possible discharge home this afternoon if cleared by PT/O T PPX: 1. DVT: SCDs, mobilize 2. Ulcer: n/a 3. Vit D level if > 65 yo: n/a Consulted Services: 1. Nsx Dispo Plannin. PT/OT recs AR. Case management following. Planning for SN F at present given refusal and patient ambivalence Incidentals: 1. None Follow Up Needs: 1. NSGY - Dr. Lazo in 4 wks Staff Trauma Surgeon: Dr. Wang SIGNATURE: Destinee Malloy APRN.CNP PATIENT NAME: Meryl Ogden DATE: June 21, 2020 TIME: 10:27 AM Pager: see below Trauma Service Pager: For questions or concerns Mon-Mon 6a-5p please page [phone]. After 5pm and on Weekends and Holidays, please page [phone] if in ICU or [phone] if on RNF. nursing prog on NURSING HNO ID: [id number] Normal 06-21-2020 [facility] Author: Jessica StephensonRn) MANDY Shay General Service: Nursing Med ica Author Type: Registered Nurse Center Type: Nursing Progress Note ([id number]) Filed: 06/21/2020 8:36 AM Note Text: Nursing Progress Note Patient Name: Meryl Ogden Patient Location: [place] [id number] Notified Dr Wang of patient's elevated blood pressure This note was completed by: Jessica Shay RN case managem on CASE MANAGEM HNO ID: [id number] [place] 06-21-20 [facility] Author: Rita StephensonRnZahraa Baeza RN [place] ([id number]) Service: Care Management Author Type: Registered Nurse Type: Care Mgt Progress Note Filed: 06/21/2020 4:04 PM Note Text: CARE MANAGEMENT PROGRESS NOTE SERVICE DATE: 06/21/2020 SERVICE TIME: 1603 LOS: 4 days Met with patient for discharge planning. Patient agreeable t o home PT OT. Lives alone. Provided home care agency choice list, patient agreeable to first accepting agency. Multiple referrals sent. SIGNATURE: Rita Baeza RN PATIENT NAME: Meryl Ogden DATE: June 21, 2020 TIME: 4:03 PM PAGER/CONTACT #: [phone] CASE MANAGEM HNO ID: [id number] Normal 06-21-[address] [place] [address] Author: Deborah Nash (Sw) [place] ([id number]) Service: ? Author Type: Shoder Filler Type: Care Mgt Progress Note Filed: 06/21/2020 12:41 PM Note Text: CARE MANAGEMENT PROGRESS NOTE SERVICE DATE: 06/21/2020 SERVICE TIME: 12:39 PM LOS: 4 days Progress note Referral sent [facility], [facility] ,and [facility] for PT/OT. Awaiting acceptance. SIGNATURE: PAMELA Shepherd PATIENT NAME: Meryl Ogden DATE: June 21, 2020 TIME: 12:39 PM PAGER/CONTACT #: [phone] progress on 2020-06 PROGRESS HNO ID: [id number] Normal 06-20-2020 [place] Author: Shelbi Downey [facility] Service: General Surgery Medical Author Type: Resident Center Type: Progress Notes ([id number]) Filed: 06/20/2020 11:39 AM Note Text: Attestation signed by Vidhya Wang at 06/21/2020 10:13 AM I personally saw and examined the patient on 06/20/20. I revi ewed the resident's note. I agree with the resident's assessment and plan unless otherwise noted. Trauma Surgery Progress Note SERVICE DATE: 06/20/2020 Trauma Service Pager: For questions or concerns Mon-Fri 6a-5p please page [phone]. After 5pm and on Weekends and Holidays, please page [phone] if in ICU or [phone] if on RNF. SUBJECTIVE: NAEON, patient articulate this am and reports that he would be ok with going to a facility after discharge as long as he can grab h is computer on the way. Denies significant pain, no nausea. OBJECTIVE: Vitals: Temp (24hrs), Av.8 ?C (98.3 ?F), Min:36.2 ?C (97.2 ?F), Max:37.5 ?C (99.5 ?F) BP 154/105 Pulse 92 Temp 37.5 ?C (99.5 ?F) (Oral) Resp 16 Ht 190.5 cm (6' 3) Wt 68.5 kg (151 lb 0.2 oz) SpO2 96% B OR 18.88 kg/m? O2 Therapy: Room Air IANDO: Date 06/19/20699 - 06/20/2065806/20/20699 - 06/21/20 0659 Shift 1151-2585 4391-4242 3103-5616 24 Hour Total 4456-4721 2898-1449 1873-7031 24 Hour Total INTAKE PO 240 600 840 240 240 PO 240 600 840 240 240 Shift Total 240 600 840 240 240 OUTPUT Urine 350 048 366 9223 500 500 Void (ml) 350 100 480 4870 500 500 Urine Incontinence/Not Saved 1 x 1 x Shift Total 350 913 494 3522 500 500 Weight (kg) 68.5 68.5 68.5 68.5 68.5 68.5 68.5 68.5 MEDICATIONS Current Facility-Administered Medications Medication Dose Route Frequency - LORazepam 2 mg (ATIVAN) 2 mg ORAL q 1 H PRN Or - LORazepam 2 mg injection (ATIVAN) 2 mg INTRAVENOUS q 1 H P RN - LORazepam 4 mg (ATIVAN) 4 mg ORAL q 1 H PRN Or - LORazepam 4 mg injection (ATIVAN) 4 mg INTRAVENOUS q 1 H P RN - haloperidol lactate 5 mg injection (HALDOL) 5 mg INTRAMUSC ULAR q 6 H PRN - nicotine 7 mg/24 hr 1 Patch (NICODERM) 1 Patch TRANSDERMAL DAILY And - nicotine -- REMOVE patch OTHER DAILY And - nicotine - verify patch OTHER q 8 H - levETIRAcetam 1,000 mg tab(s) (KEPPRA) 1,000 mg ORAL BID - thiamine 100 mg tab(s) (VITAMIN B1) 100 mg ORAL/FEEDING TU BE TID - folic acid 1 mg tab(s) 1 mg ORAL DAILY - therapeutic multivitamin-minerals tablet (THERA-M PLUS) 1 tablet ORAL DAILY - acetaminophen 975 mg tab(s) (TYLENOL) 975 mg ORAL q 6 H - oxyCODONE IR 2.5-5 mg tab(s) (ROXICODONE) 2.5-5 mg ORAL q 6 H PRN - ondansetron 4 mg tab(s) (ZOFRAN) 4 mg ORAL q 6 H PRN Or - ondansetron (PF) 4 mg injection (ZOFRAN) 4 mg INTRAVENOUS q 6 H PRN Labs: Recent Labs 06/20/20 0235 06/19/20 0335 NA 135* 137 K 3.9 see below CHLOR 98 101 CO2 26 25 BUN 12 8* CREAT 0.54* 0.52* GLUC 112* 106* ANION 11 11 CA 9.7 9.2 MG -- 1.7 WBC 4.78 5.07 HB 12.7* 12.6* HCT 36.3* 36.2* PLT 70* 56* PHYSICAL EXAM: Genl: Appears age appropriate. No acute distress. Resting co mfortably. Head/Face: Normocephalic. Atraumatic. Eyes: EOMI. Sclera not icteric, bilaterally injected Neck: No mid-line masses. Supple Resp: RA, no cough or wheeze CVS: RRR as above; 2+ pulses at RA GI: Abdomen is soft, non-tender, not distended. MSK: Extremities without clubbing, cyanosis, edema. Normal R OM x 4. Skin: Warm and dry. Not jaundiced. Neuro: AANDOx3. Strength and sensation normal. LEE. GCS15. Psych: Normal mood. Normal affect. Appropriate insight into current situation. ASSESSMENT AND PLAN: Active Hospital Problems Diagnosis Date Noted - Subdural hematoma (HCC) 06/17/2020 - Thrombocytopenia (HCC) 06/17/2020 - Alcohol abuse 06/17/2020 - Alcohol related seizure (HCC) 06/17/2020 - Ataxia after head trauma 06/17/2020 49 year old male?with a h/o chronic alcohol abuse presents t o CCAG with a subdural hematoma?s/p?fall from his porch. ? 06/18-06/19 delirium tremens, resolved 06/20 Imaging performed: 1. CT HN 2. CXR PXR Traumatic Injuries: 1. SDH Operations/Procedures: 1. None Care Plan: 1. Was admitted to ICU, transferred to floor for stable ICH 06/17 1. Nsx s/o, plan to see in one month 2. keppra 2. Alcohol withdrawal this admission 1. Electrolyte and vitamin replacement 2. High requirements for ativan on CIWA protocol over last f ew days, improved today 3. Thrombocytopenia improving, to 70 this am 3. Current diet order: DIET REGULAR 4. Pain regimen: Oxy PRN 5. Bowel regimen: No need 6. Labs: Repeat mag supplementation today PPX: 1. DVT: SCDs 2. Ulcer: No need 3. Vit D level if > 65 yo: NA Consulted Services: 1. Nsx Dispo Plannin. PT/OT recs AR. Case management following. Planning for SN F at present given refusal and patient ambivalence Incidentals: 1. None Follow Up Needs: 1. FU nsx in four weeks (from 06/18) Staff Trauma Surgeon: Dr. Wang SIGNATURE: Shelbi Downey MD PATIENT NAME: Meryl Ogden DATE: June 20, 2020 TIME: 11:27 AM Pager: see below Trauma Service Pager: For questions or concerns Mon-Fri 6a-5p please page [phone]. After 5pm and on Weekends and Holidays, please page [phone] if in ICU or [phone] if on RNF. mdrd gfr on 2020-06 GFR/1.73 sq M >60 >60mL/min/1.73m2 mL/min/{1.73_m2} Normal [facility] predicted among [facility] non-blacks MDRD (000 00) (S/P/Bld) [Vol rate/Area] Comment: Result Comment: If the patie nt is , multiply the result by 1.210. Performed By: #### GFR #### [place] [id number] hemogram on 2020-06 Erythrocyte distribution 12.7 11.6-14.4 % Normal 06-20 [facility] width (RBC) [Ratio] System (86775) Comment: Performed By: #### PT #### [facility] [address] [place] [address] Hematocrit (Bld) [Volume 36.3 40.1-51.0 % Low 06-20 [facility] fraction] System (00 000) Comment: Performed By: #### PT #### [facility] [address] [place] [address] Hemoglobin (Bld) [Mass/Vol] 12.7 13.7-17.5 g/dL Low [facility] (00 000) Comment: Performed By: #### PT #### [facility] [address] [place] [address] MCH (RBC) [Entitic mass] 34.0 25.7-32.2 pg High 06-20 [facility] System (00 000) Comment: Performed By: #### PT #### [facility] [address] [place] [address] MCHC (RBC) [Mass/Vol] 35.0 32.3-36.5 % Normal 06-20-20 20 [facility] (53695) Comment: Performed By: #### PT #### [facility] [address] [place] [address] MCV (RBC) [Entitic vol] 97.1 83.2-95.6 fl High 2019 [facility] (18965) Comment: Performed By: #### PT #### [facility] [address] [place] [address] Platelet mean volume (Bld) 11.2 8.7-12.0 fl Normal [facility] [Entitic vol] System (05760) Comment: Performed By: #### PT #### [facility] [address] [place] [address] Platelets (Bld) [#/Vol] 70 141-365 thou/cmm Low 2019 [facility] (00 000) Comment: Result Comment: Smear scanne d tech agrees with platelet count Performed By: #### PT #### [facility] [address] [place], [place] [address] RBC (Bld) [#/Vol] 3.74 4.63-6.08 mil/cmm Low 06-20-2020 [facility] (79674) Comment: Performed By: #### PT #### [facility] [address] [place], [place] [address] RDW SD 44.6 36.1-45.8 fl Normal 06-20-2020 [facility] ([address]63) Comment: Performed By: #### PT #### [facility] [address] [place], [place] [address] WBC (Bld) [#/Vol] 4.78 4.23-9.07 thou/cmm Normal 06-20-2020 [facility] (00 000) Comment: Performed By: #### PT #### [facility] [address] [place] [id number] basic metabolic panel on 2020-06-20 Anion gap [Moles/Vol] 11 9-18 mmol/L Normal 06-20-20 20 [facility] (95738) Comment: Performed By: #### CMP #### [facility] [address] [place], [place] [address] Calcium [Mass/Vol] 9.7 8.5-10.2 mg/dL Normal 06-20-2020 [facility] (10467) Comment: Performed By: #### CMP #### [facility] [address] [place], [place] [address] Chloride [Moles/Vol] 98 97-105 mmol/L Normal 0 [facility] ([address]) Comment: Performed By: #### CMP #### [facility] [address] [place], [place] [address] CO2 Blood 26 22-30 mmol/L Normal 06-20-2020 [facility] (80694) Comment: Performed By: #### CMP #### [facility] [address] [place] [id number] Creatinine [Mass/Vol] 0.54 0.73-1.22 mg/dL Low 06-20-20 20 [facility] (439[address]) Comment: Performed By: #### CMP #### [facility] [address] [place], [place] [address] Glucose [Mass/Vol] 112 74-99 mg/dL High 06-20-2020 [facility] (69097) Comment: Result Comment: The [place] [employer] Association (ADA) provides guidance for cutoff values for fastin g glucose and random glucose. The ADA defines fasting as n o caloric intake for at least 8 hours.Fasting plasma glucose results between 100 to 125 mg/dL indicate increased risk for diabetes (prediabetes). Fasting plasma glucose resul ts greater than or equal to 126 mg/dL meet the criteria for diagnosis of diabetes. In the absence of unequivocal hyper glycemia, results should be confirmed by repeat testing. In a patient with classic symptoms of hyperglycemia or hyperglycemic crisis, random plasma glucose results great er than or equal to 200 mg/dL meet the criteria for diagno sis of diabetes. Reference: Standards of Medical Care in Diabetes 2016; [place] [employer] Association. Diabetes Care. 2016;39(Suppl 1). Performed By: #### CMP #### [facility] [address] [place], [place] [address] Potassium [Moles/Vol] 3.9 3.7-5.1 mmol/L Normal 06-20-20 [facility] (00 000) Comment: Performed By: #### CMP #### [facility] [address] [place], [place] [address] Sodium [Moles/Vol] 135 136-144 mmol/L Low 06-20-2020 [facility] (38143) Comment: Performed By: #### CMP #### [facility] [address] [place], [place] [address] Urea nitrogen [Mass/Vol] 12 9-24 mg/dL Normal 06-20 [facility] (83043) Comment: Performed By: #### CMP #### [facility] [address] [place], [place] [address] therapy nt on 06-19 THERAPY NT HNO ID: [id number] Normal 06-19-2020 [facility] Author: Eva StephensonPt) [facility] Service: Physical Therapy Medical Author Type: Physical Therapist Center Type: Therapy (PT/OT/Speech/Resp) ([id number]) Filed: 06/19/2020 2:35 PM Note Text: Physical Therapy Treatment SERVICE DATE: 06/19/2020 SERVICE TIME: 1359 to 1419 ROOM: [place] [address] Recommended Discharge Disposition: Acute Rehab Recommended Discharge Disposition Comments: Normally indepen dent Justification For Post Acute Needs: Anticipate patient will tolerate 3 hours of daily therapy at the time of admission to post-acut e setting;Living the community premorbidly;Good premorbid func tional status;Medically complex;Motivated PT Recommendations to Nursing: Transfer to/from chair;OOB fo r Meals;With assist of 2 people Device: Wheeled Walker PT 6 Clicks Score: 16 Precautions/Activity Restrictions: Fall Risk;Bed/Chair Alarm;Lines/Tubes/Drains ASSESSMENT : Patient seen for follow up visit--Meryl was able to stand at edge of bed x2 trials and attempted to take steps forward--he was not ab le to do move his feet but he was able to remain upright with min A--PT co ntinues to rec continued PT at D/C Patient Disposition at Start of Session: Supine in Bed;Call Esquivel in Reach;Sitter Present(RN present) Patient Disposition at End of Session: Supine in Bed;Call Be ll in Reach;Sitter Present Tolerance Limited By (cognition) Physical Therapy Problem List: Education Deficit;Safety Defi cits;Decreased Strength;Functional Mobility Impairment;Balance Impaired Patient /Caregiver Goals: Go Home Goals for Plan of Care: Able to perform HEP with: Supervision Transfer supine to/from sit with: Supervision Transfer sit to/from stand with: Supervision Ambulate with: Supervision Distance: 60 feet intervals Device: Wheeled Walker Progress Toward Goals: Progressing as expected Rehab Potential: Good PLAN: Treatment Frequency (times per week): 5(2-4) Current admission Treatment Interventions: Education;Strengthening;Functional Mobility Training;Balance Training;Neuromuscular Re-education Plan of Care developed with: Patient TREATMENT INTERVENTIONS: Therapy Diagnosis: Reduced mobility-other;Muscle Weakness (generalized);Unsteadiness on feet Interventions Provided: Therapeutic Activity (20174) Therapeutic Activity (32363) Treatment Minutes: 20 1 unit Skilled Intervention(s): instruct in safety with bed mobilit y--reach across body for railing, bring LEs to edge of bed and then o ff edge of bed and use UEs to push into upright position Sat edge of bed couple min with close stand by assist d/t im paired cognition and impulsive Instruct in hand placement and safety with transfers Stand at edge of bed with min A x2 trials x 1min each Instruct in sequencing and safety to take steps forward--pt attempted to take steps forward but unable to move feet Total Timed Code Treatment Minutes: 20 Total Treatment Time (minutes): 20 SUBJECTIVE: Current Hospital Course: Chart reviewed and no significant m edical updates relevant to therapy were noted Reason for Physical Therapy Consult : fall, SDH Relevant Past Medical History: alcohol abuse, fall x 3 years ago with head bleed Patient Report: no c/o pain--agreeable to PT/mobility Home Environment Patient Lives With: Self/Alone Assistance Available: None Entry To Home: Stairs Number Of Stairs Into Home: 12 Number Of Stairs To Bed/Bath: 0 Tub/Shower Type: walk in shower no seat Laundry: in apartment, patient usually completes Equipment Owned: Cane;Grab Bars-Shower;Wheeled Walker(Does n ot use any assistive device now ) Prior Functional Level: Within Functional Limits Prior Functional Level Comments: Ambulates without assist, d oes his own ADLs and IADLs. uses public transportation OBJECTIVE: CURRENT FUNCTIONAL STATUS: Current Functional Mobility Assist Level Additional Informat ion Rolling Supine to Sit Minimal Assistance(HOB fully elevated) Sit to Supine Minimal Assistance(HOB fully elevated) Scooting Sit to Stand Minimal Assistance Stand to Sit Minimal Assistance Bed to Chair Toilet/Commode Gait (tries to take steps forward--very shuffled and doesn't reall) Stairs Curb Step Car Transfer Balance: Static Sitting;Static Standing Static Sitting Balance: Good(close SBA d/t cognition and imp ulsive) Patient able to maintain balance without handhold support, l imited postural sway(close SBA d/t cognition and impulsive) Static Standing Balance: Fair(min A) Patient able to maintai n balance with handhold support, may require occasional minimal assist ance(min A) Activity Tolerance: Sitting Activity;Standing Activity Sitting Activity: static sit EOB Sitting Activity Tolerance (in minutes): 4 Standing Activity: static stand with min A x 2 trials Standing Activity Tolerance (in minutes): 1(each trial) JH-HLM: 5: Standing (1 or more minutes) Please see discipline specific clinical documentation [facility] for complete details for this therapy evaluation/treatment. SIGNATURE: Eva Patel PT PATIENT NAME: Meryl Ogden DATE: June 19, 2020 TIME: 2:27 PM progress on 2020-06 PROGRESS HNO ID: [id number] Normal 06-19-2020 [facility] Author: Joey Bearden General Service: General Surgery Medical Author Type: Resident Center Type: Progress Notes ([id number]) Filed: 06/19/2020 6:50 AM Note Text: Attestation signed by Vidhya Wang at 06/19/2020 10:44 AM Attending Note I personally saw and examined the patient. I reviewed the resident's note. I agree with the resident's assessment and plan unless otherwi se noted. In DT. So far no ICU need. Will need to remain hospitalized then likely to SNF Signature: Vidhya Wang MD Date: 06/19/2020 Time: 10:43 AM Trauma Surgery Progress Note SERVICE DATE: 06/19/2020 Trauma Service Pager: For questions or concerns Mon-Mon 6a-5p please page [phone]. After 5pm and on Weekends and Holidays, please page [phone] if in ICU or [phone] if on RNF. SUBJECTIVE: Overnight the patient is starting to display signs and sympt oms of alcohol withdrawals. At 11 PM last night patient got dressed and att empted to leave AMA. We were able to redirect him to his bed.. 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 He admitted to seeing things in his room at the t evie he was shaking visibly. We were able to redirect him back to his be d. We gave him Ativan to help with withdrawals. He had given 1 injectio n of Haldol to help with hallucinations. This morning patient was lying in bed with restraints intact . States that he was doing fine. when asked where patient was he stated he was in a rock room in [place]. He states he did not know who he was he stat ed today was 1973. 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 While pointing to the TV he said the people on the show were his coworkers. OBJECTIVE: Vitals: Temp (24hrs), Av.9 ?C (98.5 ?F), Min:36.5 ?C (97.7 ?F), Max:37.2 ?C (99 ?F) BP 137/97 Pulse 85 Temp 36.7 ?C (98.1 ?F) (Axillary) R meredith 20 Ht 190.5 cm (6' 3) Wt 68.5 kg (151 lb 0.2 oz) SpO2 96% BMI 18.88 kg/m? O2 Therapy: Room Air IANDO: Date 06/18/20 07 - 06/19/20 0659 06/19/20 07 - 06/20/20 0659 Shift 6547-5769 2197-5405 6397-6348 24 Hour Total 0730-3785 5258-2301 9527-0968 24 Hour Total INTAKE PO 600 240 40 880 PO 600 240 40 880 Shift Total 600 240 40 880 OUTPUT Urine 900 937 696 7609 Void (ml) 900 022 401 8070 Urine Incontinence/Not Saved 1 x 1 x Shift Total 900 325 003 2388 Weight (kg) 68.5 68.5 68.5 68.5 68.5 68.5 68.5 68.5 MEDICATIONS Current Facility-Administered Medications Medication Dose Route Frequency - LORazepam 2 mg (ATIVAN) 2 mg ORAL q 1 H PRN Or - LORazepam 2 mg injection (ATIVAN) 2 mg INTRAVENOUS q 1 H P RN - LORazepam 4 mg (ATIVAN) 4 mg ORAL q 1 H PRN Or - LORazepam 4 mg injection (ATIVAN) 4 mg INTRAVENOUS q 1 H P RN - haloperidol lactate 5 mg injection (HALDOL) 5 mg INTRAMUSC ULAR q 6 H PRN - nicotine 7 mg/24 hr 1 Patch (NICODERM) 1 Patch TRANSDERMAL DAILY And - nicotine -- REMOVE patch OTHER DAILY And - nicotine - verify patch OTHER q 8 H - sodium chloride 0.9 % (flush) 3-5 mL (BD POSIFLUSH) 3-5 mL INTRAVENOUS q 12 H - levETIRAcetam 1,000 mg tab(s) (KEPPRA) 1,000 mg ORAL BID - thiamine 100 mg tab(s) (VITAMIN B1) 100 mg ORAL/FEEDING TU BE TID - folic acid 1 mg tab(s) 1 mg ORAL DAILY - therapeutic multivitamin-minerals tablet (THERA-M PLUS) 1 tablet ORAL DAILY - acetaminophen 975 mg tab(s) (TYLENOL) 975 mg ORAL q 6 H - oxyCODONE IR 2.5-5 mg tab(s) (ROXICODONE) 2.5-5 mg ORAL q 6 H PRN - ondansetron 4 mg tab(s) (ZOFRAN) 4 mg ORAL q 6 H PRN Or - ondansetron (PF) 4 mg injection (ZOFRAN) 4 mg INTRAVENOUS q 6 H PRN Labs: Recent Labs 06/19/20 0335 06/18/20 0248 06/17/20 0200 06/17/20 0200 06/16/20 2220 NA 137 134* -- 137 140 K see below 3.3* -- see below 3.0* CHLOR 101 95* -- 96* 98 CO2 25 30 -- 26 28 BUN 8* 7* -- 5* 6* CREAT 0.52* 0.56* -- 0.50* 0.48* GLUC 106* 110* -- 67* 72* ANION 11 9 -- 15 14 CA 9.2 8.3* -- 8.0* 7.9* MG -- -- -- 1.9 1.2* P -- -- -- 2.9 -- ALB -- -- -- -- 4.0 AST -- -- -- -- 140* ALT -- -- -- -- 45 ALKPHOS -- -- -- -- 74 TBILI -- -- -- -- 0.7 WBC 5.07 4.67 < > 4.96 4.66 HB 12.6* 12.1* < > 11.9* 12.3* HCT 36.2* 35.2* < > 34.3* 36.0* PLT 56* 51* < > 31* 36* INR -- -- -- 1.07 1.09 < > = values in this interval not displayed. PHYSICAL EXAM: Genl: Altered Head/Face: Normocephalic. Ecchymosis to left side face and e ar. Eyes: EOMI. Neck: No mid-line masses. Resp: Breathing is non-labored on RA. CVS: RRR as above; 2+ pulses at RA GI: Abdomen is soft, non-tender, not distended. No peritonit is. MSK: Extremities without clubbing, cyanosis, edema. Normal R OM x 4. Skin: Warm and dry. Not jaundiced. Neuro: AANDOx0. Hallucinating, having tremors Psych: Altered, no incite ASSESSMENT AND PLAN: Active Hospital Problems Diagnosis Date Noted - Subdural hematoma (HCC) 06/17/2020 - Thrombocytopenia (HCC) 06/17/2020 - Alcohol abuse 06/17/2020 - Alcohol related seizure (HCC) 06/17/2020 - Ataxia after head trauma 06/17/2020 49 year old male with a h/o chronic alcohol abuse presents t o CCA with a subdural hematoma s/p fall from his porch. -06/18-06/19 withdrawal symptoms ? Imaging performed: 1. CTH, CT CS 2. CXR (p), PXR (p) ? Traumatic Injuries: 1. Subdural hematoma ? Operations/Procedures: 1. none ? Care Plan: 1. Regular diet. 2. Keppra 1000mg bid seizure ppx. PO with diet. 3. Head of bed elevated 30 degrees. 4. Plt 56 this AM. 5. CIWA protocol and vitamin replacements/Mag replacement gi santo history of alcoholism 1. Ativan 4mg x3 2. Haladol x1 6. Pain regimen: Tylenol, oxycodone 7. Avoid anticoagulants 8. zofran prn nausea 9. DVT ppx: SCDs 10. PT/OT assessment- recs AR ? PPX: 1. DVT: SCDs 2. Ulcer: no 3. Vit D level if > 65 yo: no ? Consulted Services: 1. Neurosurgery ? Dispo Plannin. PT/OT recs AR. Case management following. ? Incidentals: 1. none ? Follow Up Needs: 1. PT/OT Staff Trauma Surgeon: Dr. Wang SIGNATURE: Joey Bearden DO PATIENT NAME: Meryl Ogden DATE: June 19, 2020 TIME: 6:31 AM Pager: see below Trauma Service Pager: For questions or concerns Mon-Mon 6a-5p please page [phone]. After 5pm and on Weekends and Holidays, please page [phone] if in ICU or [phone] if on RNF. plan of care on PLAN OF CARE HNO ID: [id number] [place] 06-19-20 [facility] Author: Joey Bearden [place] ([id number]) Service: General Surgery Author Type: Resident Type: Plan of Care Filed: 06/18/2020 10:40 PM Note Text: S: Was paged by nurse that patient was getting dressed and w as planning to leave AMA. Patient was confused and alerted. He had a CIWA s core of 16. He was DPLL5o1. Patient had pulled out 2 IVs. O: BP 153/103 Pulse 65 Temp 37.2 ?C (99 ?F) (Oral) Res p 18 Ht 190.5 cm (6' 3) Wt 68.5 kg (151 lb 0.2 oz) SpO2 99% B OR 18.88 kg/m? Patient confused, pacing around the room. Patient visibly sh aking. Patient was seeing thing in his room A/P: Ativan 2mg given by RN. Able to redirect the patient to back to bed. Will monitor the patient closely. Low threshold for ICU admi tJohn Bearden DO PGY-1 nursing prog on NURSING HNO ID: [id number] Normal 06-19-2020 [facility] Author: Gracie Foster) MANDY Dolan General Service: ? Medical Author Type: Registered Nurse Center Type: Nursing Progress Note ([id number]) Filed: 06/19/2020 3:27 PM Note Text: Nursing Progress Note Patient Name: Meryl Ogden Patient Location: [id number] RN removed restraints for patient to feed himself lunch. Kaylee bustillos tolerated being out of restraints well with bedside sitter observing. Patient is alert to 0 and needs frequent re-orienting but is not curren tly attempting to pull at IV or get out of bed. Trauma team notified, bilat eral wrist restraints were discontinued. Will continue to monitor patimax nt closely. This note was completed by: Gracie Dolan RN NURSING HNO ID: [id number] Normal 06-19-2020 [facility] Author: Gracie (Rn) MANDY Dolan General Service: ? Medical Author Type: Registered Nurse Center Type: Nursing Progress Note ([id number]) Filed: 06/19/2020 1:45 PM Note Text: Nursing Progress: Topic: RESTRAINT NON-VIOLENT PATIENT NAME: Meryl Ogden PATIENT LOCATION: [address]/[id number]-* The patient demonstrates Confusion, Lack of Understanding/Ab ility to Comply with Safety Directions, Impulsive Behavior, Inability to be Redirected, Inability to Retain Information Regarding Safety Directions, Attempting to Remove Medical Devices Vital to Medical Stabil ity as evidenced by the following behaviors trying to get out of th e bed and leave the room, picking at IV and patient cannot retain info rmation or follow directions which pose an imminent danger to self or o thers. The following interventions were attempted but were not effe ctive in protecting the patient's safety: Alarms, Bed in Low/Locked P osition, Call Light Within Reach, Jig Operator/Sitter, Diversion Activities, Gauze Wrap/Sleeve IV Site, IV/Feeding Bag/Pump Out of Vision, Medi cations Reviewed, Modify Environment, Modify Equipment, Frequent Obs ervation, Move Patient Closer to Nurses Station, Pad Tubes/Drains, Pain/Dis comfort Relief, Partial Bedrails Up, Re-Orientation Methods, Toileti ng Next, a comprehensive assessment was performed and warranted placing the patient in Soft Bilateral Wrists, the least restrictive rest raint needed to protect the patient's safety. Ongoing safety assessments and evaluation for earliest remov al of restraints will be performed. DATE: June 19, 2020 TIME: 9:00 AM Gracie Dolan RN NURSING HNO ID: [id number] Normal 06-19-2020 [facility] Author: Senait Brandon RN General Service: Nursing [facility] Author Type: Registered Nurse Center Type: Nursing Progress Note ([id number]) Filed: 06/18/2020 11:57 PM Note Text: Nursing Progress: Topic: RESTRAINT NON-VIOLENT PATIENT NAME: Meryl Ogden PATIENT LOCATION: [place] [address] [address]-* The patient demonstrates Confusion, Lack of Understanding/Ab ility to Comply with Safety Directions, Impulsive Behavior, Inability to be Redirected, Inability to Retain Information Regarding Safety Directions, Attempting to Remove Medical Devices Vital to Medical Stabil ity as evidenced by the following behaviors pulling on IV, attempti ng to get OOB, non-directable behavior which pose an imminent danger to manpreet f or others. The following interventions were attempted but were not effe ctive in protecting the patient's safety: Alarms, Bed in Low/Locked P osition, Call Light Within Reach, Jig Operator/Sitter, Diversion Activities, Gauze Wrap/Sleeve IV Site, IV/Feeding Bag/Pump Out of Vision, Medi cations Reviewed, Modify Environment, Modify Equipment, Frequent Obs ervation, Move Patient Closer to Nurses Station, Pad Tubes/Drains, Pain/Dis comfort Relief, Partial Bedrails Up, Re-Orientation Methods, Toileti ng Next, a comprehensive assessment was performed and warranted placing the patient in Soft Bilateral Wrists, the least restrictive rest raint needed to protect the patient's safety. Ongoing safety assessments and evaluation for earliest remov al of restraints will be performed. DATE: June 18, 2020 TIME: 11:56 PM Senait Brandon RN NURSING HNO ID: [id number] Normal 06-19-2020 [facility] Author: Senait Brandon RN General Service: Nursing [facility] Author Type: Registered Nurse Center Type: Nursing Progress Note ([id number]) Filed: 06/19/2020 1:28 AM Note Text: Nursing Progress Note Patient Name: Meryl Ogden Patient Location: [id number] Daily Note: Patient attempting to get out of bed-patient already dressed in his street clothes, attempting to pull out IV. Patient states he needs to go home to take care of some things. Patient states we are all part of a conspiracy to kill my parents and steal from me. Dr. Bearden paged to come see patient. Patient stating he is signing any medical lilian rs necessary to refuse further treatment. 222: into see patient. 222: Dr. Pa in to see patient. Patient continues to be c onfused and refusing to get back to bed. Unsteady on feet. Orders receiv ed for IV Ativan. Patient helped back to bed with assist x3. Bed alarm in place, side rails x3 for safety. This note was completed by: Senait Brandon, RN [id number]: Hydrology Technician, Anabelle, up to see patient. Multiple attempts being made by patient to get OOB despite bed alarm, and siderails x3. Anabelle helped this RN put patient back to bed. Decision made to give patient a BSCG for patient safety. 2338: BSCG unable to keep patient safely in bed. Patient wit h multiple attempts to get OOB-climbing over siderails, and hallucinati ng looking for that gun over there. Unable to redirect patient. paged for bilateral soft wrist restraints. 0004: Patient's emergency contact- called to inform her of restraints. did not answer phone and no voicemail capabilities. 0011: Patient's mother, Jacqueline Rodriguez called and informed of use of restraints. Patient's mother verbalizes appropriate understanding and st ates to not call patient's EX- as she will not answer the phone and is not able to make decisions for patient. Patient's mother states she wish to be primary contact. magnesium blood on 2020-06-19 Magnesium [Mass/Vol] 1.7 1.7-2.3 mg/dL Normal 0 [facility] (37145) Comment: Performed By: #### CMP #### [facility] [address] [place] [address] hemogram on 2020-06 Erythrocyte distribution 13.1 11.6-14.4 % Normal 06-19 [facility] width (RBC) [Ratio] System (31210) Comment: Performed By: #### CMP #### [facility] [address] [place] [address] Hematocrit (Bld) [Volume 36.2 40.1-51.0 % Low 06-19 [facility]] System (00 000) Comment: Performed By: #### CMP #### [place] [address] Hemoglobin (Bld) [Mass/Vol] 12.6 13.7-17.5 g/dL Low [facility] (00 000) Comment: Performed By: #### CMP #### [facility] [address] [place] [address] MCH (RBC) [Entitic mass] 34.1 25.7-32.2 pg High 06-19 [facility] (00 000) Comment: Performed By: #### CMP #### [facility] [address] [place] [address] MCHC (RBC) [Mass/Vol] 34.8 32.3-36.5 % Normal 06-19-20 20 [facility] (03995) Comment: Performed By: #### CMP #### [facility] [address] [place] [address] MCV (RBC) [Entitic vol] 98.1 83.2-95.6 fl High 2019 [facility] (59263) Comment: Performed By: #### CMP #### [place] [address] Platelet mean volume (Bld) 12.0 8.7-12.0 fl Normal [facility] [Entitic vol] System (06445) Comment: Performed By: #### CMP #### [facility] [address] [place], [place] [address] Platelets (Bld) [#/Vol] 56 141-365 thou/cmm Low 2019 [facility] (00 000) Comment: Result Comment: Smear jovanni melendez tech agrees with platelet count Performed By: #### CMP #### [facility] [address] [place], [place] [address] RBC (Bld) [#/Vol] 3.69 4.63-6.08 mil/cmm Low 06-19-2020 [facility] ([address]) Comment: Performed By: #### CMP #### [facility] [address] [place], [place] [address] RDW SD 46.2 36.1-45.8 fl High 06-19-2020 [facility] (46643) Comment: Performed By: #### CMP #### [facility] [address] [place], [place] [address] WBC (Bld) [#/Vol] 5.07 4.23-9.07 thou/cmm Normal 06-19-2020 [facility] (00 000) Comment: Performed By: #### CMP #### [place] [id number] case managem on CASE MANAGEM HNO ID: [id number] Normal 06-19-20 20 [facility] Author: Maggy Dhaliwal (Sw) General Service: ? Medical Author Type: [facility] Type: Care Mgt Progress Note ([id number]) Filed: 06/19/2020 12:28 PM Note Text: CARE MANAGEMENT PROGRESS NOTE SERVICE DATE: 06/19/2020 SERVICE TIME: 12:09 PM LOS: 2 days Needs Prior to Discharge: Accepting Facility;Precertificatio n;Discharge Transportation;Bed Availability;To Be Determined Received call from Ingrid at [facility] who reports the medic al director has denied pt's acceptance due to frequent [place] ED visits for alcohol intoxication and falls/head injuries. Per Ingrid, the medical claims specialist does not think he will stay inpatient and/or follow-up or comply with his care appropriately. Spoke with pt's Mother Maury Ogden [phone] who is pt' s NOK. Discussed AR vs. SNF and pt's ambivalence about placement. S ent Maury a choice list for SNF so she can review choices and assist pt once his mental status improves. Maury reports she was attempting to get in touch with pt's disability tobacco warehouse agent but pt could not remember the name and she has been u nsuccessful in cold searching. Plan: Await improvement in mental status for dispo planning with pt. Anticipate SNF placement. SIGNATURE: WILLIAM Quiroga PATIENT NAME: Meryl Ogden DATE: June 19, 2020 TIME: 12:09 PM PAGER/CONTACT #: [phone] CASE MANAGEM HNO ID: [id number] Normal 06-19-20 [facility] Author: Maggy Dhaliwal (Sw) General Service: ? Medical Author Type: [facility] Type: Care Mgt Progress Note ([id number]) Filed: 06/19/2020 9:35 AM Note Text: CARE MANAGEMENT PROGRESS NOTE SERVICE DATE: 06/19/2020 SERVICE TIME: 9:29 AM LOS: 2 days Needs Prior to Discharge: Precertification;Discharge Transpo rtation Chart reviewed. Pt CIWA score increased overnight and pt now in soft restraints and has received Ativan. Pt attempted to leave AM A and was experiencing visual hallucinations. [facility] and will start precert today anticip ating it will be back on Monday or Monday. Plan at this time is [place] [facility] if pt still agreeable once m ental status clears and withdrawal symptoms improve. SIGNATURE: WILLIAM Quiroga PATIENT NAME: Meryl Ogden DATE: June 19, 2020 TIME: 9:29 AM PAGER/CONTACT #: [phone] basic metabolic panel on 2020-06-19 Anion gap [Moles/Vol] 11 9-18 mmol/L Normal 06-19-20 20 [facility] (50375) Comment: Performed By: #### CMP #### [place] [address] Calcium [Mass/Vol] 9.2 8.5-10.2 mg/dL Normal 06-19-2020 [facility] (20875) Comment: Performed By: #### CMP #### [facility] [address] [place], [place] [address] Chloride [Moles/Vol] 101 97-105 mmol/L Normal 0 [facility] (45877) Comment: Performed By: #### CMP #### [facility] [address] [place], [place] [address] CO2 Blood 25 22-30 mmol/L Normal 06-19-2020 [facility] (33889) Comment: Performed By: #### CMP #### [facility] [address] [place], [place] [address] Creatinine [Mass/Vol] 0.52 0.73-1.22 mg/dL Low 06-19-20 20 [facility] (98662) Comment: Performed By: #### CMP #### [facility] [address] [place], [place] [address] Glucose [Mass/Vol] 106 74-99 mg/dL High 06-19-2020 [facility] (82443) Comment: Result Comment: The [place] Diabetes Association (ADA) provides guidance for cutoff values for fastin g glucose and random glucose. The ADA defines fasting as n o caloric intake for at least 8 hours.Fasting plasma glucose results between 100 to 125 mg/dL indicate increased risk for diabetes (prediabetes). Fasting plasma glucose resul ts greater than or equal to 126 mg/dL meet the criteria for diagnosis of diabetes. In the absence of unequivocal hyper glycemia, results should be confirmed by repeat testing. In a patient with classic symptoms of hyperglycemia or hyperglycemic crisis, random plasma glucose results great er than or equal to 200 mg/dL meet the criteria for diagno sis of diabetes. Reference: Standards of Medical Care in Diabetes 2016; [place] Diabetes Association. Diabetes Care. 2016;39(Suppl 1). Performed By: #### CMP #### [facility] [address] [place], [place] [address] Potassium [Moles/Vol] see below 3.7-5.1 Normal 06-19-20 20 [facility] (00 000) Comment: Result Comment: Unable to as say. Specimen Hemolyzed Performed By: #### CMP #### [facility] [address] [place], [place] [address] Sodium [Moles/Vol] 137 136-144 mmol/L Normal 06-19-2020 [facility] (72949) Comment: Performed By: #### CMP #### [facility] [address] [place], [place] [address] Urea nitrogen [Mass/Vol] 8 9-24 mg/dL Low 06-19 [facility] (41108) Comment: Performed By: #### CMP #### [facility] [address] [place], [place] [address] therapy nt on 06-18 THERAPY NT HNO ID: [id number] Normal 06-18-2020 [facility] Author: Corbin ([facility] [employer]) Mumtaz CCC/TREE SHEAR OPERATOR [facility] Service: Speech/Swallow (24358) Author Type: Speech Language Pathologist Type: Therapy (PT/OT/Speech/Resp) Filed: 06/18/2020 12:21 PM Note Text: Speech Therapy Speech Evaluation SERVICE DATE: 06/18/2020 SERVICE TIME: 1135 to 1205 ROOM: [place] [address] Nursing Recommendations: Reinforce use of cognitive-communication strategies Simplify commands to 1 step Results and Recommendations Discussed With: Patient Recommended Discharge Disposition: Acute Rehab Justification For Post Acute Needs: Patient can tolerate 3 h ours of therapy per day;Willing to participate;Motivated;Medically c omplex;Good sitting tolerance;Good premorbid functional status IMPRESSION: Patient demonstrates cognitive-communication deficits which is negatively impacting the patient's ability to effectively communicate b asic ADL medical and social wants/needs with familiar and unfamiliar communication partners. Rehabilitation Precautions: Cognitive Linguistics Deficits ASSESSMENT: - Patient in bed upon arrival, alert and able to participate in therapy - Assessed speech, language, and cognitive skills: - Speech: Intelligibility: ?childhood lisp Dysarthria/Apraxia: n/a - Language: Receptive: WFL Expressive: word search, paraphasias - Cognition: See below - Reading/writing: WFL - Insight: Fair - Pragmatics: WFL - Patient presents with deficits in the following areas: sergio guage and cognition - ST to follow to improve cognitive-communication Cognitive Linguistic Quick Test (CLQT) is a standardized edenilson t to evaluate higher level cognition. The following areas were assessed: Attention, Memory, Execut ritesh Functions, Language, and Visuospatial Skills. Scores: Attention: 188 Memory: 108 Executive Functions: 23 Language: 28 Visuospatial Skills: 76 Clock drawin Severity Range: Attention: WFL Memory: Severe Executive Functions: Mild Language: Mild Visuospatial Skills: Mild Clock drawing: Moderate Total score: 14/5=2.8 Severity Range: Mild Additional comments: Patient was taught 7 languages Very well spoken Goal: Patient will participate in a reassessment in 06/18/2020 using the CLQT to assess possible improvements in the cognit ritesh areas listed above. Tolerated Full Session Goals for Plan of Care: Language Goals: Patient will increase word finding skills at word, phrase, s entence and conversation level to 90% accuracy given moderate cues so th at the patient may express basic ADL medical and social wants/needs . Cognitive Goals: Patient will demonstrate orientation to person, place, time, situation to 100% accuracy given moderate cues so that the patient can mo re actively engage in own personal care and recovery. Patient will improve functional auditory memory skills to 70 % accuracy given moderate cues so that the patient may apply safety pre cautions for personal welfare. Patient will demonstrate use of simple problem solving skill s with 70% accuracy given moderate cues so that the patient may partici mosqueda in personal discharge planning. Patient /Caregiver Goals: Improve Cognition;Improve Communic ation Speech Rehab Potential: Good PLAN: Treatment Frequency (times per week): 2 Current admission Treatment Interventions: Cognitive-Linguistic Management;Aph terence Management Plan of Care Developed with: Patient TREATMENT INTERVENTIONS: Therapy Diagnosis: Aphasia;Unspecified symbolic dysfunctions Interventions Provided: Speech Language Eval (86891) $ Speech Language Eval (84832) Billed Units: 1 unit Total Treatment Time (minutes): 30 SUBJECTIVE: Current Hospital Course: Chart reviewed; Diagnosis: Subdural hematoma Reason for admit: Patient presents with: Trauma Evaulation: Sent from [place] for subdural hematoma a nd trauma consult. Patient was found on the ground on his porch with n o recolection of how he got there. He is a daily drinker and was given ati van prior to arrival. No complaints at this time. Meryl is a 49 year old male who was brought her from [place] ED for a subdural hematoma. He was found on his front porch today by his friend. He remember sitting on his front porch waiting for his friend hina england waking up on the ground. He has a history of alcoholism and prior fall s. He has only had one beer today. He normally drinks a 6 pack of beer a da y. He denied chest pain, SOB, headache, or visual changes. He stated he f elt nauseous and hungry. 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 N o evidence of midline shift. 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 Home Environment Prior Functional Level: Within Functional Limits Assistance Available: PRN Prior Swallowing Function/Diet Textures: Regular Consistency ;Thin Liquids IDDSI Level 0 Please see discipline specific clinical documentation [facility] for complete details for this therapy evaluation/treatment. SIGNATURE: Corbin Pandya [facility]TREE SHEAR OPERATOR PATIENT NAME: Meryl bain DATE: June 18, 2020 TIME: 12:16 PM staph aureus pcr on 2020-06-18 MRSA PCR SEE BELOW Normal 06-18-2020 [facility] (60731) Comment: Result Comment: Negative for MRSA by PCR. Performed By: #### CMP #### [address] [address] S aureus Spec Source NASAL Normal 0 [facility] (75914) Comment: Performed By: #### CMP #### [address] [address] Staph aureus PCR SEE BELOW Abnormal 06-18-2020 [facility] (36452) Comment: Result Comment: Positive for Staphylococcus aureus by PCR.(*) Performing Laboratory: [facility] [address] [address] Performed By: #### CMP #### [address] [address] progress on 2020-06 PROGRESS HNO ID: [id number] Normal 06-18-2020 [facility] Author: Shashank Hernandez [facility] Service: General Surgery ([id number]) Author Type: Physician Type: Progress Notes Filed: 06/18/2020 5:05 PM Note Text: Trauma Surgery Progress Note SERVICE DATE: 06/18/2020 Trauma Service Pager: For questions or concerns Mon-Fri 6a-5p please page [phone]. After 5pm and on Weekends and Holidays, please page [phone] if in ICU or [phone] if on RNF. SUBJECTIVE: No acute events. States that he feels better this morning. D enies and headache, vision changes, CP, SOB. OBJECTIVE: Vitals: Temp (24hrs), Av.6 ?C (97.8 ?F), Min:36.1 ?C (97 ?F), Ma x:36.9 ?C (98.4 ?F) BP 130/89 Pulse 80 Temp 36.8 ?C (98.2 ?F) (Oral) Resp 18 Ht 190.5 cm (6' 3) Wt 68.5 kg (151 lb 0.2 oz) SpO2 97% B OR 18.88 kg/m? O2 Therapy: Room Air IANDO: Date 06/17/20699 - 06/18/2065806/18/20 07 - 06/19/20 0659 Shift 3524-4023 6366-5358 9904-3028 24 Hour Total 7676-5086 0827-1226 4389-6888 24 Hour Total INTAKE PO 360 240 600 PO 360 240 600 Shift Total 360 240 600 OUTPUT Urine 850 611 110 5399 Void (ml) 753 770 5943 Output ([REMOVED] External Collection Device 06/17/20 0300 06/17/20 1330) 850 850 Emesis 100 100 Emesis (ml) 100 100 Shift Total 950 093 394 7484 Weight (kg) 68 68 68.5 68.5 68.5 68.5 68.5 68.5 MEDICATIONS Current Facility-Administered Medications Medication Dose Route Frequency - potassium phosphate 45 mmol in NaCl 0.9% 250 mL 45 mmol IN TRAVENOUS ONCE - sodium chloride 0.9 % (flush) 3-5 mL (BD POSIFLUSH) 3-5 mL INTRAVENOUS q 12 H - levETIRAcetam 1,000 mg tab(s) (KEPPRA) 1,000 mg ORAL BID - thiamine 100 mg tab(s) (VITAMIN B1) 100 mg ORAL/FEEDING TU BE TID - folic acid 1 mg tab(s) 1 mg ORAL DAILY - therapeutic multivitamin-minerals tablet (THERA-M PLUS) 1 tablet ORAL DAILY - acetaminophen 975 mg tab(s) (TYLENOL) 975 mg ORAL q 6 H - oxyCODONE IR 2.5-5 mg tab(s) (ROXICODONE) 2.5-5 mg ORAL q 6 H PRN - [MAR Hold due to Transfer] nicotine 7 mg/24 hr 1 Patch (NI CODERM) 1 Patch TRANSDERMAL DAILY And - [MAR Hold due to Transfer] nicotine -- REMOVE patch OTHER DAILY And - [MAR Hold due to Transfer] nicotine - verify patch OTHER q 8 H - LORazepam 1 mg tab(s) (ATIVAN) 1 mg ORAL q 1 H PRN Or - LORazepam 1 mg injection (ATIVAN) 1 mg INTRAVENOUS q 1 H P RN - ondansetron 4 mg tab(s) (ZOFRAN) 4 mg ORAL q 6 H PRN Or - ondansetron (PF) 4 mg injection (ZOFRAN) 4 mg INTRAVENOUS q 6 H PRN Labs: Recent Labs 06/18/20 0248 06/17/20 1132 06/17/20 0200 06/16/20 2220 NA 134* -- 137 140 K 3.3* -- see below 3.0* CHLOR 95* -- 96* 98 CO2 30 -- 26 28 BUN 7* -- 5* 6* CREAT 0.56* -- 0.50* 0.48* GLUC 110* -- 67* 72* ANION 9 -- 15 14 CA 8.3* -- 8.0* 7.9* MG -- -- 1.9 1.2* P -- -- 2.9 -- ALB -- -- -- 4.0 AST -- -- -- 140* ALT -- -- -- 45 ALKPHOS -- -- -- 74 TBILI -- -- -- 0.7 WBC 4.67 4.45 4.96 4.66 HB 12.1* 12.2* 11.9* 12.3* HCT 35.2* 35.5* 34.3* 36.0* PLT 51* 58* 31* 36* INR -- -- 1.07 1.09 PHYSICAL EXAM: Genl: Appears age appropriate. No acute distress. Resting co mfortably. Head/Face: Normocephalic. Ecchymosis to left side face and e ar. Eyes: EOMI. Neck: No mid-line masses. Resp: Breathing is non-labored on RA. CVS: RRR as above; 2+ pulses at RA GI: Abdomen is soft, non-tender, not distended. No peritonit is. MSK: Extremities without clubbing, cyanosis, edema. Normal R OM x 4. Skin: Warm and dry. Not jaundiced. Neuro: AANDOx3. Strength and sensation normal. LEE. GCS15. Psych: Normal mood. Normal affect. Appropriate insight into current situation. 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 He is doing well this AM. ? Imaging performed: 1. CTH, CT CS 2. CXR (p), PXR (p) ? Traumatic Injuries: 1. Subdural hematoma ? Operations/Procedures: 1. none ? Care Plan: 1. Regular diet. 2. Keppra 1000mg bid seizure ppx. PO with diet. 3. Head of bed elevated 30 degrees. 4. Rpt CTH - appears stable. Read pending. 5. Plt 51 this AM. 6. CIWA protocol and vitamin replacements/Mag replacement gi santo history of alcoholism 7. Pain regimen: Tylenol, oxycodone 8. Avoid anticoagulants 9. zofran prn nausea 10. DVT ppx: SCDs 11. Patient states that he has trouble walking. PT/OT assess ment- recs AR ? PPX: 1. DVT: SCDs 2. Ulcer: no 3. Vit D level if > 65 yo: no ? Consulted Services: 1. Neurosurgery ? Dispo Plannin. PT/OT recs AR. Case management following. ? Incidentals: 1. none ? Follow Up Needs: 1. PT/OT Staff Trauma Surgeon: Dr. Hernandez SIGNATURE: Joey Bearden, PATIENT NAME: Meryl Ogden DATE: June 18, 2020 TIME: 8:07 AM Pager: see below Trauma Service Pager: For questions or concerns Mon-Fri 6a-5p please page [phone]. After 5pm and on Weekends and Holidays, please page [phone] if in ICU or [phone] if on RNF. Attending Note I evaluated the patient and personally participated in the k ey components. I agree with the resident's findings and plan as documented and have discussed the case and management of the patient's care with the resident. Follow ammonia level, rehab planning, discharge planning. Mo nitgrace thrombocytopenia. Shashank Hernandez MD plan of care on PLAN OF CARE HNO ID: [id number] Normal 06-18-20 [facility] Author: Simran Lyons) Katharine [facility] Service: Neurosurgery ([id number]) Author Type: Physician Camera Control Operator Type: Plan of Care Filed: 06/18/2020 5:04 PM Note Text: Neurosurgery 06/18/2020 Imaging reviewed with Hany. CT stable. Follow up appointm ent requested in [address] Leach. Will SO. Simran Alcantar PA-C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 10 or more suggests imp airment consistent with dementia. Total Treatment Time (minutes): 17 SUBJECTIVE: Current Hospital Course: Chart reviewed; 49 year old male ad mitted after falling at home (+ LOC) with right subdural hematoma - no ma ss effect or midline shift. No plan for neurosurgical intervention. Reason for Occupational Therapy Consult: Progressive mobilit y protocol Relevant Past Medical History: alcohol abuse, fall x 3 years ago with head bleed Patient Report: I feel a little shaky. I don't think I can walk, I'm afraid I'll fall. Pleasant and agreeable to participate. So me dizziness upon sitting, quickly resolved. No complaints of pain or dis comfort. Pain: 0/10 Home Environment Patient Lives With: Self/Alone Assistance Available: None Entry To Home: Stairs Number Of Stairs Into Home: 12 Number Of Stairs To Bed/Bath: 0 Tub/Shower Type: walk in shower no seat Laundry: in apartment, patient usually completes Equipment Owned: Cane;Grab Bars-Shower;Wheeled Walker(Does n ot use any assistive device now ) Prior Functional Level: Within Functional Limits Prior Functional Level Comments: Patient was indepedent with ADLs and IADLs. Uses public transportation. OBJECTIVE: Cognition/Communication Deficits Orientation Deficits: Not oriented to Time(Stated it was May) Responsiveness: Alert;Awake Follows Commands: Cueing Needed;1-step Commands;2-step Comma nds Cueing to Follow Commands: Minimum Attention Deficits: Divided Memory Deficits: Short Term Executive Function Deficits: Sequencing;Judgement;Insight to Deficits;Problem Solving;Safety Awareness Sequencing Deficit: Minimal impairment Judgement Deficit: Moderate impairment Insight to Deficits: Moderate impairment Problem Solving Deficit: Minimal impairment Safety Awareness Deficit: Moderate impairment Cognitive Clinical Tests and Screens: Short Blessed Test 1. What Year Is It Now?: Incorrect 2. What Month Is It Now?: Incorrect 3. What Time is it? (WIthin 1 hour): Correct 4. Count Aloud Backwards 20 to 1 (Errors): 0 5. Months of the Year in Reverse Order (Errors): 2 6. Memory Phrase (Errors) : 3 Short Blessed Final Score: 17 CURRENT FUNCTIONAL STATUS: Current Activities of Daily Living Assist Level Feeding Set Up Grooming Minimal Assistance Bathing Upper Body Minimal Assistance Bathing Lower Body Moderate Assistance Dressing Upper Body Moderate Assistance Dressing Lower Body Moderate Assistance Toileting Moderate Assistance Functional Mobility Assist Level Rolling Supine to Sit Minimal Assistance Sit to Supine Contact Guard Assistance Scooting Sit to Stand Minimal Assistance Stand to Sit Minimal Assistance Bed to Chair Toilet/Commode Functional Mobility ROM: WFL Strength: Weak, 4-/5 Functional Mobility Comments: Did not progress to functional mobility; very unsteady on feet upon standing Balance: Static Sitting;Dynamic Sitting;Static Standing Static Sitting Balance: Fair(Fair +) Patient able to maintai n balance with handhold support, may require occasional minimal assist ance(Fair +) Dynamic Sitting Balance: Fair Patient accepts minimal challe nge, able to maintain balance while turning head/trunk Static Standing Balance: Poor Patient requires handhold supp ort and moderate to maximal assistance to maintain position Activity Tolerance: Standing Activity;Sitting Activity Sitting Activity: ADL and assessment at edge of bed Sitting Activity Tolerance (in minutes): 5 Standing Activity: Static stand at edge of bed Standing Activity Tolerance (in minutes): 0.5 Please see discipline specific clinical documentation [facility] for complete details for this therapy evaluation/treatment. SIGNATURE: Yuly Piedra OTR/L PATIENT NAME: Meryl Ogden DATE: June 17, 2020 TIME: 10:25 AM rapid, covid 19 on 2020-06-17 Rapid, COVID 19 NEGATIVE Negative Normal 06-17-2020 [facility] ([id number]) Comment: Result Comment: This test castro s been authorized by the FDA under an Emergency Use Authorization (EUA). Performed By: #### RCOVD ### # [place] [id number] protime on INR Coag (PPP) [Relative 1.07 0.90-1.30 {INR} Normal 06-17 [facility] time] System (00 000) Comment: Result Comment: Vitamin K An tagonist (VKA) Therapeutic Range: INR 2 to 3 (Target INR of 2.5) Note: For patients treated w ith VKA drugs, such as warfarin, the [employer] 2012 Guideline recommends a therapeutic INR range of 2 to 3 (target INR of 2.5). This recommendation includes high -risk patients with antiphospholipid syndrome with previous arter ial or venous thromboembolism, current-generation mechanica l or bioprosthetic aortic heart valve replacement. Note: Patients with cylinder block mechanic al aortic valve replacement and additional risk factors for thromboembolic events (atrial fibrillation, previous throm boembolism, LV dysfunction, hypercoagulable conditions) or an older generation mechanical AVR (i.e., ball in-Cage) or any mechanical MVR should have a INR therapeutic range of 2 .5 to 3.5 target INR of 3). Álvaro GH, et al. Chest 2012 ; 141:7S-47S Ada PRICE et al. JACC 20 17; 70: 252-289 Performed By: #### ALCO3 ### # [facility] [address] [place], [place] [address] PT Coag (PPP) [Time] 11.1 9.7-13.0 sec Normal 0 [facility] ([id number]) Comment: Performed By: #### ALCO3 ### # [facility] [address] [place], [place] [address] INR Coag (PPP) [Relative 1.09 0.90-1.30 {INR} Normal 06-17 [facility] time] System (00 000) Comment: Result Comment: Vitamin K An tagonist (VKA) Therapeutic Range: INR 2 to 3 (Target INR of 2.5) Note: For patients treated w ith VKA drugs, such as warfarin, the [employer] 2012 Guideline recommends a therapeutic INR range of 2 to 3 (target INR of 2.5). This recommendation includes high -risk patients with antiphospholipid syndrome with previous arter ial or venous thromboembolism, current-generation mechanica l or bioprosthetic aortic heart valve replacement. Note: Patients with cylinder block mechanic al aortic valve replacement and additional risk factors for thromboembolic events (atrial fibrillation, previous throm boembolism, LV dysfunction, hypercoagulable conditions) or an older generation mechanical AVR (i.e., ball in-Cage) or any mechanical MVR should have a INR therapeutic range of 2 .5 to 3.5 target INR of 3). Samanyatt GH, et al. Chest 2012 ; 141:7S-47S Ada PRICE et al. [facility] 20 ; 70: 252-289 Performed By: #### PT #### [facility] [address] [place], [place] [address] PT Coag (PPP) [Time] 11.3 9.7-13.0 sec Normal 0 [facility] ([id number]) Comment: Performed By: #### PT #### [facility] [address] [place], [place] [address] progress on 2020-06 PROGRESS HNO ID: [id number] Normal 06-17-2020 [facility] Author: Simran Lyons) [facility] Service: Neurosurgery ([id number]) Author Type: Physician Camera Control Operator Type: Progress Notes Filed: 06/17/2020 3:12 PM Note Text: PROGRESS NOTE NEUROSURGERY SERVICE DATE: 06/17/2020 Subjective INTERVAL HPI No acute events overnight. Patient resting comfortably. Negrito es headache, vision issues, nausea, vomiting. Current Facility-Administered Medications Medication Dose Route Frequency - LORazepam 1 mg tab(s) (ATIVAN) 1 mg ORAL q 1 H PRN Or - LORazepam 1 mg injection (ATIVAN) 1 mg INTRAVENOUS q 1 H P RN - ondansetron 4 mg tab(s) (ZOFRAN) 4 mg ORAL q 6 H PRN Or - ondansetron (PF) 4 mg injection (ZOFRAN) 4 mg INTRAVENOUS q 6 H PRN - potassium chloride ER 20-40 mEq tab(s) (K-DUR, KLOR-CON) 2 0-40 mEq ORAL/FEEDING TUBE PRN Or - potassium chloride iv piggyback 20 mEq/100 mL 20 mEq INTRA VENOUS PRN - magnesium sulfate in sterile water 2 g in sterile water 50 ml 2 g INTRAVENOUS PRN - calcium gluconate 4 g in NaCl 0.9% 250 mL 4 g INTRAVENOUS PRN - sodium chloride 0.9 % (flush) 3-5 mL (BD POSIFLUSH) 3-5 mL INTRAVENOUS q 12 H - levETIRAcetam 1,000 mg tab(s) (KEPPRA) 1,000 mg ORAL BID - thiamine 100 mg tab(s) (VITAMIN B1) 100 mg ORAL/FEEDING TU BE TID - folic acid 1 mg tab(s) 1 mg ORAL DAILY - therapeutic multivitamin-minerals tablet (THERA-M PLUS) 1 tablet ORAL DAILY - acetaminophen 975 mg tab(s) (TYLENOL) 975 mg ORAL q 6 H - oxyCODONE IR 2.5-5 mg tab(s) (ROXICODONE) 2.5-5 mg ORAL q 6 H PRN Objective Physical Exam Performed: General - Alert, cooperative, appropriate Cardiac - regular rate, intact peripheral pulses Resp - even, unlabored HEENT - Normocephalic. Atraumatic. Neck/Back - No midline or paraspinal tenderness. No gross [place] deformities. Neuro - A+O x3, PERRL, makes eye contact, speech clear, cran ial nerves 2-12 grossly intact, strength and sensation WNL. No focal de ficits Extremities- Grossly normal. Symmetrical. No edema, deformit y, coloration changes. VITAL SIGNS 24 HOUR REVIEW: Patient Vitals for the past 24 hrs: BP Temp Temp src Pulse Resp SpO2 Height Weight 06/17/20 1400 126/94 36.1 ?C (97 ?F) ? 73 13 100 % ? ? 06/17/20 1300 121/83 36.5 ?C (97.7 ?F) ? 84 13 99 % ? ? 06/17/20 1200 129/108 36.5 ?C (97.7 ?F) ? 95 20 100 % ? ? 06/17/20 1100 135/93 36.5 ?C (97.7 ?F) ? 77 13 100 % ? ? 06/17/20 1000 131/94 36.7 ?C (98.1 ?F) ? 88 13 100 % ? ? 06/17/20 0900 130/95 36.9 ?C (98.4 ?F) ? 76 14 100 % ? ? 06/17/20 0800 132/94 36.8 ?C (98.2 ?F) ? 74 14 99 % ? ? 06/17/20 0700 140/94 36.9 ?C (98.4 ?F) ? 81 15 99 % ? ? 06/17/20 0600 137/104 36.8 ?C (98.2 ?F) Axillary 79 14 99 % ? ? 06/17/20 0500 132/88 36.5 ?C (97.7 ?F) Axillary 89 19 99 % ? ? 06/17/20 0415 132/88 36.5 ?C (97.7 ?F) ? 89 19 ? ? ? 06/17/20 0400 147/99 37 ?C (98.6 ?F) Axillary 94 15 99 % ? ? 06/17/20 0300 133/103 ? Axillary 83 14 100 % ? ? 06/17/20 0200 134/94 37.2 ?C (99 ?F) Axillary 83 18 99 % ? ? 06/17/20 0100 127/93 37.3 ?C (99.2 ?F) Axillary (!) 92 14 96 % ? ? 06/17/20 0000 140/96 37.2 ?C (99 ?F) Oral 79 14 96 % ? ? 06/16/20 2200 139/97 ? ? 87 22 98 % ? ? 06/16/203 136/85 37.4 ?C (99.3 ?F) Oral 86 16 98 % 190.5 cm (6' 3) 68 kg (150 lb) LABS: CBC, Coags, BMP, Mg, Phos Recent Labs 06/17/20 1132 06/17/20 0200 06/16/20 2220 WBC 4.45 4.96 4.66 HB 12.2* 11.9* 12.3* HCT 35.5* 34.3* 36.0* PLT 58* 31* 36* INR -- 1.07 1.09 APTT -- 27.9 -- NA -- 137 140 K -- see below 3.0* CHLOR -- 96* 98 CO2 -- 26 28 BUN -- 5* 6* CREAT -- 0.50* 0.48* GLUC -- 67* 72* CA -- 8.0* 7.9* MG -- 1.9 1.2* P -- 2.9 -- DATA: Diagnostic tests reviewed for today's visit: Most recent labs and imaging results. CT Brain: IMPRESSION: Unchanged size of acute on chronic extra-axial hemorrhage al sandy right cerebral convexity measuring 8 mm in thickness. Slightly inc reased dependent hyperdense component near vertex is likely redistr ibution of acute hemorrhage. Assessment/Plan This is a 49 y/o with history of alcohol abuse, s/p fall wit h subsequent SDH: -Neuro stable. Continue neuro checks. -Will obtain additional serial CT Brain -Keppra for seizure prophylaxis -[facility] protocol -Pain control -Discussed with Dr. Leach Medication and Non-Pharmacologic VTE Prophylaxis/Anticoagula nts 06/17/20 0145 vte pharmacologic prophylaxis contraindicated (vt,oh) 06/17/20 0145 pneumatic compression stockings (vt,pr) VTE Prophylaxis: VTE prophylaxis appropriate SIGNATURE: Simran Alcantar PA-C PATIENT NAME: Meryl Ogden DATE: June 17, 2020 TIME: 2:59 PM PAGER/CONTACT #: Pager: [phone] PROGRESS HNO ID: [id number] Normal 06-17-2020 [facility] Author: Vidhya Harris [facility] Service: General Surgery ([id number]) Author Type: Physician Type: Progress Notes Filed: 06/17/2020 10:28 AM Note Text: INPATIENT SICU PROGRESS NOTE SERVICE DATE: 06/17/2020 SERVICE TIME: 7:50 AM Subjective Patient is doing well this morning. No acute events overnigh t. Denies any headache or vision changes. No neuro deficits. Patient state s he is hungry and would like to eat something. Current Facility-Administered Medications Medication Dose Route Frequency - LORazepam 1 mg tab(s) (ATIVAN) 1 mg ORAL q 1 H PRN Or - LORazepam 1 mg injection (ATIVAN) 1 mg INTRAVENOUS q 1 H P RN - ondansetron 4 mg tab(s) (ZOFRAN) 4 mg ORAL q 6 H PRN Or - ondansetron (PF) 4 mg injection (ZOFRAN) 4 mg INTRAVENOUS q 6 H PRN - potassium chloride ER 20-40 mEq tab(s) (K-DUR, KLOR-CON) 2 0-40 mEq ORAL/FEEDING TUBE PRN Or - potassium chloride iv piggyback 20 mEq/100 mL 20 mEq INTRA VENOUS PRN - magnesium sulfate in sterile water 2 g in sterile water 50 ml 2 g INTRAVENOUS PRN - calcium gluconate 4 g in NaCl 0.9% 250 mL 4 g INTRAVENOUS PRN - sodium chloride 0.9 % (flush) 3-5 mL (BD POSIFLUSH) 3-5 mL INTRAVENOUS q 12 H - acetaminophen 975 mg tab(s) (TYLENOL) 975 mg ORAL q 6 H NH N - oxyCODONE IR 5-10 mg tab(s) (ROXICODONE) 5-10 mg ORAL q 4 H PRN - morphine 2 mg injection 2 mg INTRAVENOUS q 4 H PRN - levETIRAcetam 1,000 mg tab(s) (KEPPRA) 1,000 mg ORAL BID - thiamine 100 mg tab(s) (VITAMIN B1) 100 mg ORAL/FEEDING TU BE TID - sodium phosphate 45 mmol in D5W 250 mL 45 mmol INTRAVENOUS ONCE Objective VITAL SIGNS BP 137/104 Pulse 79 Temp (Src) 98.2 (Axillary) Resp 14 Ht 6' 3 (1.91m) Wt 150 lb (68.0kg) SpO2 99% BMI 18.75 kg/(m2). O2 Therapy: Room Air Temp (24hrs), Av ?C (98.6 ?F), Min:36.5 ?C (97.7 ?F), Ma x:37.4 ?C (99.3 ?F) Date 06/16/20699 - 06/17/2065806/17/20 07 - 06/18/20 0659 Shift 7945-3735 1989-3131 7003-0503 24 Hour Total 0419-1918 6733-9671 1722-8402 24 Hour Total INTAKE IV 950 950 Volume (mL) (NaCl 0.9% iv infusion) 650 650 Volume (mL) (thiamine 200 mg in NaCl 0.9% 50 mL) 100 100 Volume (mL) (potassium chloride iv piggyback 20 mEq/100 mL) 100 100 Volume (mL) (potassium chloride iv piggyback 20 mEq/100 mL) 100 100 Blood Products 351 351 Platelet mL 350 350 Platelets Number of Units 1 1 Shift Total 1301 1301 OUTPUT Urine 600 600 Void (ml) 600 600 Other Amount Wasted Platelets 0 mL 0 mL # of BMs Number of BMs 0 x 0 x Shift Total 600 600 Weight (kg) 68 68 68 68 68 68 68 PHYSICAL EXAM: GENERAL: Alert, no distress, cooperative, No Distress, Coope rative SKIN: Skin color, texture, turgor normal. No rashes or lesio ns. LUNGS: non labored breathing on O2 Therapy: Room Air sating at SpO2: 99 % CARDIAC: Regular rate and rhythm as above ABDOMEN: soft, nontender EXTREMITIES: ROM of all joint grossly normal: strength gross ly normal bilaterally. No deformities noted. NEURO: AANDO x3. Strength and sensation normal. No deficits. DATA: Diagnostic tests reviewed for today's visit: No results for input(s): BODSITE, CTYPE, PH, PCO2, PO2, BE, HCO3, CO2CT, O2HB, COHB, MHGB, TEMP, PHTC, PCO2T, PO2T, O2AD in the last 72 hours. Recent Labs 06/17/20 0200 06/16/20 2220 CREAT 0.50* 0.48* BUN 5* 6* NA 137 140 K see below 3.0* CHLOR 96* 98 CO2 26 28 ANION 15 14 GLUC 67* 72* CA 8.0* 7.9* P 2.9 -- MG 1.9 1.2* ALB -- 4.0 AST -- 140* ALT -- 45 ALKPHOS -- 74 TBILI -- 0.7 WBC 4.96 4.66 HB 11.9* 12.3* HCT 34.3* 36.0* PLT 31* 36* ACTIVE PROBLEM LIST Subdural Hematoma (Hcc) Assessment/Plan This is a 49 year old male with chronic alcohol abuse who pr esented to [facility] with a subdural hematoma after a fall from his porch. Hospital course: 06/17 CT brain shows stable subdural hematoma Neuro: - keppra 1 g BID - AM CT, hematoma stable from previous imaging. Unchanged si ze of acute on chronic extra-axial hemorrhage. -q1hr neuro exams and close monitoring. May de-escalate due to stable condition. -Neuro following and not planning acute surgical interventio n -Thiamine replacement CV: RRR -daily CBC -SCDs for DVT ppx Resp: 99% on O2 Therapy: Room Air GI: DIET REGULAR -zofran prn for nausea Renal: -Daily bmp - cr 0.5 -strict I/Os Intake/Output Summary (Last 24 hours) at 06/17/2020 0659 Last data filed at 06/17/2020 0600 Gross per 24 hour Intake 1301 ml Output 600 ml Net 701 ml Heme: HGB - 11.9 -thrombocytopenia platelets 31 likely 2/2 chronic alcohol us e -1 unit platelets ordered -daily cbc Endo: GLU - 67 ID: - no sign of infection - WBC 4.96 ? Ext: - DVT ppx: SCDs ? Ppx: - DVT: SCDs - GI: no - Seizure: keppra Consults: SICU, Trauma, neuro Dispo: transfer to floor vs discharge home today SICU Service Pager: For questions or concerns Mon-Mon 6a-5p please page [phone]. After 5pm and on Weekends and Holidays, please page [phone]. SIGNATURE: Melissa Begum DO PATIENT NAME: Meryl Ogden DATE: June 17, 2020 TIME: 7:50 AM PAGER: above Platelets in system is 31 before platelets transfusion. Know n thrombocytopenia Repeat platelets this PM And alcohol withdrawal seizure Stable repeat head CT scan No Anticoagulation due to risk of rebleed Neurocheck to Q4 hours DC NS Diet as tolerated Activity as tolerated Has history of ataxia and nystagmus with alcohol withdrawal seizure, possible previous Wernicke. Plan for multivitamin plus demetra ine and folate. Drop oxycodone dose Ok to floor I provided 35 minutes of critical care services which were n ecessary due to above specified injuries and illnesses. This patient has a high probability of sudden, clinical significant deterioration, w hich required the highest level of care and preparedness to intervene urge ntly. I managed and supervised life or organ supporting intervention s that require frequent assessments. This time does not include time devote d to teaching and to any procedure I billed separately. I have personally seen and examined this patient and partici pated in the benjamin components of this encounter with the multi-disciplinary ICU team. I discussed the management of this case with the resident and reviewed/confirmed their documentation, attached or in separ ate note. I personally reviewed today's actual images, the associated im age reports, and current labs. I supervised the ordering of additional te sting, imaging, labs, and/or consultations. The patient and/or fami ly were fully informed of the findings and plan of care. They had the oppo rtunity to ask questions and raise any issues of concern, all of which were answered and dealt with by me to their stated satisfaction. 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 Management of critical care illnesses are edited above by me , including system by system plan and are not only limited to infectious disease and tailoring the antibiotic therapy, nutrition assessment and supplementation, electrolyte correction and prevention of IC U related complications using ventilator bundle, sedation holiday and assessment and removal of lines and tubes where indicated. ICU Checklist Last Documented/Reviewed time: 06/17/2020 10:27 AM ICU Delirium Status: CAM Negative - no action required Restraint Status: None ICU Mobility-Pt Has Been Out of Bed: Yes Line Status: None Ventilator: None Carreno Status: None GI/Stress Ulcer Prophylaxis: None - not required Nutrition is at Goal: Advancing to goal VTE Prophylaxis: Chemoprophylaxis: No chemoprophylaxis Mechanical Prophylaxis : Knee high SCD No Chemoprophylaxis Reason: Bleeding risk, Thrombocytopenia Pressure Injury Status: None ICU plan of care visit at bedside in last 24 hours: Yes, Pro evelin RN, Patient/ designee ICU Disposition- Is Patient Clinically Ready to Transfer to [facility] or SDU?: Yes, transfer to SDU or [facility] today Discharge Planning: To be determined SIGNATURE: Vidhya Wang MD PATIENT NAME: Meryl Ogden DATE: June 17, 2020 TIME: 10:12 AM PROGRESS HNO ID: [id number] Normal 06-17-2020 [facility] Author: [facility] Service: General Surgery ([id number]) Author Type: Physician Type: Progress Notes Filed: 07/13/2020 8:17 AM Note Text: Trauma Surgery Progress Note SERVICE DATE: 06/17/2020 Trauma Service Pager: For questions or concerns Mon-Fri 6a-5p please page [phone]. After 5pm and on Weekends and Holidays, please page [phone] if in ICU or [phone] if on RNF. SUBJECTIVE: No acute events. Feels pretty well this AM. Still with littl e left sided CASTRO. No neuro deficits. No other complaints. OBJECTIVE: Vitals: Temp (24hrs), Av ?C (98.6 ?F), Min:36.5 ?C (97.7 ?F), Ma x:37.4 ?C (99.3 ?F) BP 137/104 Pulse 79 Temp 36.8 ?C (98.2 ?F) (Axillary) Resp 14 Ht 190.5 cm (6' 3) Wt 68 kg (150 lb) SpO2 99% BMI 18. 75 kg/m? O2 Therapy: Room Air IANDO: Date 06/16/20 07 - 06/17/20 0659 06/17/20 07 - 06/18/20 0659 Shift 7473-6074 2667-7269 2963-0832 24 Hour Total 8130-5483 4445-0005 5878-4916 24 Hour Total INTAKE IV 950 950 Volume (mL) (NaCl 0.9% iv infusion) 650 650 Volume (mL) (thiamine 200 mg in NaCl 0.9% 50 mL) 100 100 Volume (mL) (potassium chloride iv piggyback 20 mEq/100 mL) 100 100 Volume (mL) (potassium chloride iv piggyback 20 mEq/100 mL) 100 100 Blood Products 351 351 Platelet mL 350 350 Platelets Number of Units 1 1 Shift Total 1301 1301 OUTPUT Urine 600 600 Void (ml) 600 600 Other Amount Wasted Platelets 0 mL 0 mL # of BMs Number of BMs 0 x 0 x Shift Total 600 600 Weight (kg) 68 68 68 68 68 68 68 MEDICATIONS Current Facility-Administered Medications Medication Dose Route Frequency - potassium chloride ER 20-40 mEq tab(s) (K-DUR, KLOR-CON) 2 0-40 mEq ORAL/FEEDING TUBE PRN Or - potassium chloride iv piggyback 20 mEq/100 mL 20 mEq INTRA VENOUS PRN - magnesium sulfate in sterile water 2 g in sterile water 50 ml 2 g INTRAVENOUS PRN - calcium gluconate 4 g in NaCl 0.9% 250 mL 4 g INTRAVENOUS PRN - sodium chloride 0.9 % (flush) 3-5 mL (BD POSIFLUSH) 3-5 mL INTRAVENOUS q 12 H - acetaminophen 975 mg tab(s) (TYLENOL) 975 mg ORAL q 6 H NH N - oxyCODONE IR 5-10 mg tab(s) (ROXICODONE) 5-10 mg ORAL q 4 H PRN - morphine 2 mg injection 2 mg INTRAVENOUS q 4 H PRN - levETIRAcetam 1,000 mg tab(s) (KEPPRA) 1,000 mg ORAL BID - thiamine 100 mg tab(s) (VITAMIN B1) 100 mg ORAL/FEEDING TU BE TID - sodium phosphate 45 mmol in D5W 250 mL 45 mmol INTRAVENOUS ONCE - LORazepam 1 mg tab(s) (ATIVAN) 1 mg ORAL q 1 H PRN Or - LORazepam 1 mg injection (ATIVAN) 1 mg INTRAVENOUS q 1 H P RN - ondansetron 4 mg tab(s) (ZOFRAN) 4 mg ORAL q 6 H PRN Or - ondansetron (PF) 4 mg injection (ZOFRAN) 4 mg INTRAVENOUS q 6 H PRN - NaCl 0.9% iv infusion 125 mL/hr INTRAVENOUS CONTINUOUS Labs: Recent Labs 06/17/20 0200 06/16/20 2220 NA 137 140 K see below 3.0* CHLOR 96* 98 CO2 26 28 BUN 5* 6* CREAT 0.50* 0.48* GLUC 67* 72* ANION 15 14 CA 8.0* 7.9* MG 1.9 1.2* P 2.9 -- ALB -- 4.0 AST -- 140* ALT -- 45 ALKPHOS -- 74 TBILI -- 0.7 WBC 4.96 4.66 HB 11.9* 12.3* HCT 34.3* 36.0* PLT 31* 36* INR 1.07 1.09 PHYSICAL EXAM: Genl: Appears age appropriate. No acute distress. Resting co mfortably. Head/Face: Normocephalic. Atraumatic. Eyes: EOMI. Sclera not icteric, not injected Neck: No mid-line masses. C-spine non-tender. Back: T AND L Spine non-tender, no step-offs or deformities noted. No flank tenderness. Resp: Lung sounds are clear bilat. No wheezes. No rales. Joan athing is non-labored on RA. CVS: RRR as above; 2+ pulses at RA, DP, PT bilat. GI: Abdomen is soft, non-tender, not distended. Bowel sounds normoactive. No peritonitis. MSK: Extremities without clubbing, cyanosis, edema. Normal R OM x 4. Skin: Warm and dry. Not jaundiced. Neuro: AANDOx3. Strength and sensation normal. LEE. GCS15. Psych: Normal mood. Normal affect. Appropriate insight into current situation. ASSESSMENT AND PLAN: Active Hospital Problems Diagnosis Date Noted - Subdural hematoma (HCC) 06/17/2020 49 year old male with a h/o chronic alcohol abuse presents t o [facility] with a subdural hematoma s/p fall from his porch. He is doing well this AM. ? Imaging performed: 1. CTH, CT CS 2. CXR (p), PXR (p) ? Traumatic Injuries: 1. Subdural hematoma ? Operations/Procedures: 1. none ? Care Plan: 1. NPO overnight. CTH appears stable. Will start diet. 2. IV NS. Discontinue with diet. 3. Keppra 1000mg bid seizure ppx. PO with diet. 4. Head of bed elevated 30 degrees. 5. q1hr neurochecks 6. Rpt CTH - appears stable. Read pending. 7. 1u plt yesterday. Plt 31 this AM. 8. CIWA protocol and vitamin replacements/Mag replacement gi santo history of alcoholism 9. Current diet order: NPO 10. Pain regimen: Tylenol, oxycodone 11. Avoid anticoagulants 12. zofran prn nausea 13. DVT ppx: SCDs 14. Patient states that he has trouble walking. PT/OT assess ment. 15. Likely to floor today. ? PPX: 1. DVT: SCDs 2. Ulcer: no 3. Vit D level if > 65 yo: no ? Consulted Services: 1. Neurosurgery ? Dispo Plannin. PT/OT recs TBD. Case management following. ? Incidentals: 1. none ? Follow Up Needs: 1. PT/OT Staff Trauma Surgeon: Dr. Hernandez SIGNATURE: Dale Hyatt MD PATIENT NAME: Meryl Ogden DATE: June 17, 2020 TIME: 6:42 AM Pager: see below Trauma Service Pager: For questions or concerns Mon-Fri 6a-5p please page [phone]. After 5pm and on Weekends and Holidays, please page [phone] if in ICU or [phone] if on RNF. Attending Note I evaluated the patient and personally participated in the k ey components on 06/17/2020 I agree with the resident's findings and plan as documented and have discussed the case and management of the patient's care with the resident. Shashank Hernandez MD Delayed entry phosphorous blood o n 2020-06-17 Phosphate [Mass/Vol] 2.9 2.7-4.8 mg/dL Normal 0 [facility] ([id number]) Comment: Performed By: #### ALCO3 ### # [place] [address] pheresed platelets on 2020-06-17 Pheresed Plts unit 1 Done Normal 0 [facility] (09001) Comment: Performed By: #### ALCO3 ### # [facility] [address] [place], [place] [address] magnesium blood on 2020-06-17 Magnesium [Mass/Vol] 1.9 1.7-2.3 mg/dL Normal 0 [facility] (28254) Comment: Performed By: #### ALCO3 ### # [facility] [address] [place], [place] [address] Magnesium [Mass/Vol] 1.2 1.7-2.3 mg/dL Low 0 [facility] (63506) Comment: Performed By: #### MAG #### [facility] [address] [place], [place] [address] lipase blood on Lipase Blood 37 16-61 U/L Normal 06-17-2020 [facility] (37164) Comment: Performed By: #### LIP #### [facility] [address] [place], [place] [address] history physical on 2020-06-17 HISTORY PHYSICAL HNO ID: [id number] Normal [facility] Author: Shelbi [facility] Service: General Surgery ([id number]) Author Type: Resident Type: HANDP Filed: 06/17/2020 8:48 AM Note Text: TRAUMA SURGERY HANDP [facility] ARRIVAL DATE: 06/16/2020 ARRIVAL TIME: 2129 CATEGORY: Level 3 INJURY DATE: 06/16/2020 INJURY TIME: 1600 Subjective 49 year old male presents to [facility] as a transfer from [place] . He apparently fell at home on his porch around 4 o'clock and castro d a positive LOC, not remembering what happened for a lengthy period of t evie afterwards. He does report not being able to get up after fa lling and is unsure as to why. He denies any headache, nausea, or vomitin g. He does complain of some neck pain. The patient is a chronic alcohol abuser drinking a 6-pack of beer per day, and he admits to drinking 1 beer prior to falling tonight. His last full meal was yesterday afterno on. HPI/CHIEF COMPLAINT: fall BRIEF DESCRIPTION OF INJURIES: Chronic RUE wound LAST FLUIDS/MEAL: 06/15/20 afternoon CODE STATUS: Not discussed ALLERGIES Allergen Reactions - Benadryl [Diphenhyd* Swelling - Caladryl Clear [Pra* Swelling (Not in a hospital admission) DATE OF LAST TETANUS: unknown There is no immunization history on file for this patient. PAST MEDICAL HISTORY Diagnosis Date - ASTHMA UNSPECIFIED - HYPERTENSION NOS Essential hypertension No past surgical history on file. Social History Tobacco Use - Smoking status: Former Smoker Quit date: 07/11/2000 Years since quittin.9 Substance Use Topics - Alcohol use: Yes Alcohol/week: 5.0 standard drinks - Drug use: No No family history on file. ROS: Is the patient having any pain? Yes LOCATION: neck Constitutional: Negative Eye/Ear/Nose: Negative Respiratory: Negative Cardiovascular: Negative GI/Liver/Biliary: Negative Genitourinary: Negative Psychiatric: Negative Neurologic: see hpi Musculoskeletal: Negative Integument: chronic RUE wound Endocrine: Negative Heme/Lymph: Negative Objective PRIMARY SURVEY AIRWAY: Patent BREATHING: Breath sounds equal CIRCULATION: PT/DP 2+, Radials 2+, Femoral 2+, Carotid 2+ DISABILITY: Eye: 4=Spontaneous Verbal: 5=Oriented and Converses Motor: 6=Obeys Commands Total GCS: 15=4 Resp Rate: 10 to 29=4 Syst BP: > than 89=4 REVISED TRAUMA SCORE: 12 EXPOSE / ENVIRONMENT: Warm Blankets PROCEDURES: none SECONDARY SURVEY VITALS: stable NEURO: Alert AND Oriented x 3, GCS 15, Cranial Nerves II-XII Intact, Moves All Extremities HEENT: Head: No lacerations or abrasions, no bony step offs, midface stable to palpation, Eyes: PERRL, conjunctiva/corneas withou t lesions, EOM intact, Throat: Oral mucosa without lacerations, teeth in pl marlen, tongue without lacerations, tenderness lateral to left canthus NECK: No lacerations/wounds, No JVD, Trachea midline, midlin e cervical tenderness RESPIRATORY: No abrasions or contusions, No crepitus, No TTP CARDIOVASCULAR: Heart rate regular ABDOMEN: Non-distended, No scars or lacerations, Non-tendern ess or peritoneal signs, No masses or organomegaly PELVIC/PERINEAL: Pelvis stable to palpation BACK/SPINE: Thoracolumbar spinal column non-tender, No step off or deformity noted, No external injury noted EXTREMITIES: free AROM, no pain with palpation RADIOLOGICAL/ OTHER TEST DATA: CTH, CXR: subdural hematoma PRIOR TO ARRIVAL: Cervical Collar Labs: No results for input(s): NA, K, CHLOR, CO2, BUN, CREAT, GLUC , ANION, CA, MG, P, ALB, AST, ALT, ALKPHOS, TBILI, DBILI, PHOSINTL, WBC, HB, HCT, PLT, LACT, INR, PH, PCO2, PO2, BE, HCO3 in the last 72 hours. Invalid input(s): [facility] Assessment/Plan There are no active hospital problems to display for this pa tient. 49 year old male with a h/o chronic alcohol abuse presents t o [facility] with a subdural hematoma s/p fall from his porch. Imaging performed: 1. CTH, CT CS 2. CXR (p), PXR (p) Traumatic Injuries: 1. Subdural hematoma Operations/Procedures: 1. none Care Plan: 1. Admit to ICU tonight 2. NPO overnight 3. IV NS 4. Keppra 1000mg bid seizure ppx. 5. Head of bed elevated 30 degrees. 6. q1hr neurochecks 7. D/c c-collar 8. Rpt CTH in am. 9. Will give 1 unit of platelets for thrombocytopenia in the setting of an acute bleed with h/o chronic alcoholism 10. CIWA protocol and vitamin replacements/Mag replacement g iven history of alcoholism 11. Current diet order: NPO 12. Pain regimen: Tylenol, oxycodone 13. Avoid anticoagulants 14. zofran prn nausea 15. DVT ppx: SCDs PPX: 1. DVT: SCDs 2. Ulcer: no 3. Vit D level if > 65 yo: no Consulted Services: 1. Neurosurgery Dispo Plannin. PT/OT recs TBD. Case management following. Incidentals: 1. none Follow Up Needs: 1. PT/OT Assessment and plan discussed with Staff Trauma Attending Nilda lynneon: Dr. Wang SIGNATURE: George Cohen DO PATIENT NAME: Meryl Ogden DATE: June 16, 2020 TIME: 10:36 PM Pager: see below Trauma Service Pager: For questions or concerns Mon-Fri 6a-5p please page [phone]. After 5pm and on Weekends and Holidays, please page [phone] if in ICU or [phone] if on RNF. hemogram/diff on 28-06-09 Abs Immature Grans 0.02 0.00-0.05 thou/cmm Normal 06-17-2020 [facility] (00 000) Comment: Performed By: #### [id number] ### # [facility] [address] [place], [place] [address] Abs Neut (ANC) 2.94 1.78-5.38 thou/cmm Normal 06-17-2020 [facility] (66119) Comment: Performed By: #### [id number] ### # [facility] [address] [place] [address] Abs. Baso 0.06 0.01-0.08 thou/cmm Normal 06-17-2020 [facility] (03905) Comment: Performed By: #### CBCD1 ### # [address] [address] Abs. Meigs 0.47 0.30-0.82 thou/cmm Normal 06-17-2020 [facility] (83291) Comment: Performed By: #### CBCD1 ### # [facility] [address] [place], [place] [address] Basophils/100 WBC (Bld) 1.3 % Normal 2019 [facility] (12870) Comment: Performed By: #### CBCD1 ### # [facility] [address] [place], [place] [address] Eosinophils (Bld) 0.07 0.04-0.54 thou/cmm Normal 06-17-2020 [employer] [#/Vol] [facility] (76462) Comment: Performed By: #### CBCD1 ### # [address] [address] Eosinophils/100 WBC (Bld) 1.5 % Normal [facility] (38539) Comment: Performed By: #### CBCD1 ### # [facility] [address] [place], [place] [address] Erythrocyte distribution 13.2 11.6-14.4 % Normal 06-17 [facility] width (RBC) [Ratio] System (12354) Comment: Performed By: #### CBCD1 ### # [facility] [address] [place], [place] [address] Hematocrit (Bld) [Volume 36.0 40.1-51.0 % Low 06-17 [facility] fraction] System (00 000) Comment: Performed By: #### CBCD1 ### # [facility] [address] [place], [place] [address] Hemoglobin (Bld) [Mass/Vol] 12.3 13.7-17.5 g/dL Low [facility] (00 000) Comment: Performed By: #### CBCD1 ### # [facility] [address] [place], [place] [address] Immature Grans 0.40 % Normal 06-17-2020 [facility] (44156) Comment: Performed By: #### CBCD1 ### # [facility] [address] [place], [place] [address] Lymphocytes (Bld) 1.10 0.84-2.85 thou/cmm Normal 06-17-2020 [facility] [#/Vol] Health Sys tem (84750) Comment: Performed By: #### CBCD1 ### # [facility] [address] [place], [place] [address] Lymphocytes/100 WBC (Bld) 23.6 % Normal [facility] (89150) Comment: Performed By: #### CBCD1 ### # [facility] [address] [place], [place] [address] MCH (RBC) [Entitic mass] 33.1 25.7-32.2 pg High 06-17 [facility] (00 000) Comment: Performed By: #### CBCD1 ### # [facility] [address] [place], [place] [address] MCHC (RBC) [Mass/Vol] 34.2 32.3-36.5 % Normal 06-17-20 20 [facility] (37177) Comment: Performed By: #### CBCD1 ### # [facility] [address] [place], [place] [address] MCV (RBC) [Entitic vol] 96.8 83.2-95.6 fl High 2019 [facility] (56340) Comment: Performed By: #### CBCD1 ### # [facility] [address] [place], [place] [address] Monocytes/100 WBC (Bld) 10.1 % Normal 2019 [facility] (66728) Comment: Performed By: #### CBCD1 ### # [facility] [address] [place], [place] [address] Platelet mean volume (Bld) 11.1 8.7-12.0 fl Normal [facility] [Entitic vol] System (99633) Comment: Performed By: #### CBCD1 ### # [facility] [address] [place], [place] [address] Platelets (Bld) 36 141-365 thou/cmm Critically low 0 [facility] [#/Vol] [facility] Sys tem (10393) Comment: Performed By: #### CBCD1 ### # [facility] [address] [place], [place] [address] RBC (Bld) [#/Vol] 3.72 4.63-6.08 mil/cmm Low 06-17-2020 [facility] (68044) Comment: Performed By: #### CBCD1 ### # [facility] [address] [place], [place] [address] RDW SD 47.0 36.1-45.8 fl High 06-17-2020 [facility] (75383) Comment: Performed By: #### CBCD1 ### # [facility] [address] [place], [place] [address] Seg Neutrophil 63.1 % Normal 06-17-2020 [facility] (49963) Comment: Performed By: #### CBCD1 ### # [facility] [address] [place], [place] [address] WBC (Bld) [#/Vol] 4.66 4.23-9.07 thou/cmm Normal 06-17-2020 [facility] ( 000) Comment: Performed By: #### CBCD1 ### # [facility] [address] [place], [place] [address] hemogram on 2020-06 Erythrocyte distribution 12.9 11.6-14.4 % Normal 06-17 [facility] width (RBC) [Ratio] System (38921) Comment: Performed By: #### CMP #### [facility] [address] [place] [address] Hematocrit (Bld) [Volume 35.5 40.1-51.0 % Low 06-17 [facility] fraction] System (00 000) Comment: Performed By: #### CMP #### [facility] [address] [place] [address] Hemoglobin (Bld) [Mass/Vol] 12.2 13.7-17.5 g/dL Low [facility] ( 000) Comment: Performed By: #### CMP #### [facility] [address] [place] [address] MCH (RBC) [Entitic mass] 33.2 25.7-32.2 pg High 06-17 [facility] (00 000) Comment: Performed By: #### CMP #### [facility] [address] [place] [address] MCHC (RBC) [Mass/Vol] 34.4 32.3-36.5 % Normal 06-17-20 20 [facility] (59357) Comment: Performed By: #### CMP #### [facility] [address] [place] [address] MCV (RBC) [Entitic vol] 96.7 83.2-95.6 fl High 2019 [facility] (04094) Comment: Performed By: #### CMP #### [facility] [address] [place] [address] Platelet mean volume (Bld) 11.1 8.7-12.0 fl Normal [employer] [facility] [Entitic vol] System (26408) Comment: Performed By: #### CMP #### [facility] [address] [place] [address] Platelets (Bld) [#/Vol] 58 141-365 thou/cmm Low 2019 [facility] (00 000) Comment: Result Comment: Smear scanne d tech agrees with platelet count Performed By: #### CMP #### [facility] [address] [place] [address] RBC (Bld) [#/Vol] 3.67 4.63-6.08 mil/cmm Low 06-17-2020 [facility] [employer] [facility] (80347) Comment: Performed By: #### CMP #### [place] [address] RDW SD 45.6 36.1-45.8 fl Normal 06-17-2020 [place] [facility] (53311) Comment: Performed By: #### CMP #### [place] [address] WBC (Bld) [#/Vol] 4.45 4.23-9.07 thou/cmm Normal 06-17-2020 [facility] [employer] [facility] (00 000) Comment: Performed By: #### CMP #### [place] [address] Erythrocyte distribution 13.0 11.6-14.4 % [facility] 06[facility] [Ratio[facility] (98289) Comment: Performed By: #### ALCO3 ### # [place] [address] Hematocrit (Bld) [Volume 34.3 40.1-51.0 % Low 06-17 [facility] fraction] System (00 000) Comment: Performed By: #### ALCO3 ### # [place] [address] Hemoglobin (Bld) [Mass/Vol] 11.9 13.7-17.5 g/dL Low [facility] (00 000) Comment: Performed By: #### ALCO3 ### # [address] [place], [place] [address] MCH (RBC) [Entitic mass] 33.6 25.7-32.2 pg High 06-17 [facility] (00 000) Comment: Performed By: #### ALCO3 ### # [facility] [address] [place], [place] [address] MCHC (RBC) [Mass/Vol] 34.7 32.3-36.5 % Normal 06-17-20 20 [facility] (10269) Comment: Performed By: #### ALCO3 ### # [facility] [address] [place] [id number] MCV (RBC) [Entitic vol] 96.9 83.2-95.6 fl High 2019 [facility] (23931) Comment: Performed By: #### ALCO3 ### # [facility] [address] [place] [address] Platelet mean volume (Bld) 11.2 8.7-12.0 fl Normal [facility] [Entitic vol] System (54931) Comment: Performed By: #### ALCO3 ### # [facility] [address] [place] [id number] Platelets (Bld) 31 141-365 thou/cmm Critically low 0 [facility] [#/Vol] [facility] (80066) Comment: Result Comment: Repeated AND verified Performed By: #### ALCO3 ### # [facility] [address] [place] [id number] RBC (Bld) [#/Vol] 3.54 4.63-6.08 mil/cmm Low 06-17-2020 [facility] (27703) Comment: Performed By: #### ALCO3 ### # [facility] [address] [place] [id number] RDW SD 46.3 36.1-45.8 fl High 06-17-2020 [facility] (95475) Comment: Performed By: #### ALCO3 ### # [facility] [address] [place] [id number] WBC (Bld) [#/Vol] 4.96 4.23-9.07 thou/cmm Normal 06-17-2020 [facility] (00 000) Comment: Performed By: #### ALCO3 ### # [facility] [address] [place], [place] [address] ed prov note on ED PROV NOTE HNO ID: [id number] Normal 06-17-20 [facility] Author: Harini Nolen [facility] Service: Emergency Medicine ([id number]) Author Type: Physician Type: ED Provider Notes Filed: 06/17/2020 12:06 AM Note Text: I performed a history and physical examination of the patien t and discussed the management with the resident. I reviewed the griffin daley's note and agree with the documented findings and plan of care. The patient is a 49-year-old male sent to the emergency depa rtment as a transfer from [place] for trauma evaluation found to have ac [place] chronic subdural hematoma. The patient has a known history of alcoho l abuse. He reports that he drinks at least a sixpack of beer daily. He recalls being on his porch waiting for a friend. He then was found on the ground by his friend acting altered. The patient does not recall feeling i ll before the episode. He was seen in [facility] where he had labora tory studies done along with a serum EtOH level that was elevated at 150. CT imaging of the brain showed evidence of acute or chronic subdural he matoma. On exam, the patient is awake and alert. Vital signs are sta ble. Head is normocephalic. The patient has some tenderness upon palpatio n and some dirt in the left temporal region and some bruising to the le ft ear. No midface deformity neuro instability. No dental injury or mal occlusion. No midline neck or back tenderness to palpation, step-offs, crepitance, or deformities. Chest wall is nontender. Abdomen is soft, nonte nder, nondistended. Pelvis is stable. The patient moves all extrem ities equally. Peripheral pulses are palpable. Diagnostic studies were repeated including screening labs. S timo alcohol level is 47. Platelets are 36. Potassium is 3, magnesium 1.2 . CIWA protocol is initiated. Case was discussed with the trauma service. They will admit the patient to the SICU. Critical Care I spent a total of 35 minutes of critical care time in the e valuation and management of this patient. This was necessary to treat or p revent deterioration of the following condition(s): Multiple trauma , which the patient had and/or has a high probability of suddenly develo ping. The patient received Consultation by trauma surgery during the t evie that critical care was provided.I discussed the plan of care with the Resident and agree with the findings documented. Critical care time e xcludes separately billed procedures. DO Harini Negro DO 06/17/20 0006 ED PROV NOTE HNO ID: [id number] Normal 06-17-20 [facility] Author: Harini Nolen [facility] Service: Emergency Medicine ([id number]) Author Type: Physician Type: ED Provider Notes Filed: 06/17/2020 12:30 AM Note Text: ED Provider Note Patient Name: Meryl Ogden SERVICE DATE: 06/16/20 History Patient presents with: Trauma Evaulation: Sent from [place] for subdural hematoma a nd trauma consult. Patient was found on the ground on his porch with n o recolection of how he got there. He is a daily drinker and was given ati van prior to arrival. No complaints at this time. SHAMIR Haji is a 49 year old male who was brought her from [place] ED for a subdural hematoma. He was found on his front porch today by his friend. He remember sitting on his front porch waiting for his friend hina england waking up on the ground. He has a history of alcoholism and prior fall s. He has only had one beer today. He normally drinks a 6 pack of beer a da y. He denied chest pain, SOB, headache, or visual changes. He stated he f elt nauseous and hungry. PAST MEDICAL HISTORY Diagnosis Date - ASTHMA UNSPECIFIED - HYPERTENSION NOS Essential hypertension No past surgical history on file. No family history on file. Social History Tobacco Use - Smoking status: Former Smoker Quit date: 07/11/2000 Years since quittin.9 Substance and Sexual Activity - Alcohol use: Yes Alcohol/week: 5.0 standard drinks - Drug use: No - Sexual activity: Not on file ALLERGIES Allergen Reactions - Benadryl [Diphenhyd* Swelling - Caladryl Clear [Pra* Swelling Review of Systems Constitutional: Negative for chills and fever. HENT: Negative for congestion, rhinorrhea, sinus pain, sneez ing and sore throat. Respiratory: Negative for cough, chest tightness and shortne ss of breath. Cardiovascular: Negative for chest pain, palpitations and le g swelling. Gastrointestinal: Positive for nausea. Negative for abdomina l pain, constipation, diarrhea and vomiting. Neurological: Positive for weakness (in his legs). Physical Exam BP 139/97 Pulse 87 Temp (Src) 99.3 (Oral) Resp 22 Ht 6' 3 (1.91m) Wt 150 lb (68.0kg) SpO2 98% BMI 18.75 kg/(m2). O2 Therapy: Room Air Physical Exam Constitutional: General: He is not in acute distress. Appearance: Normal appearance. He is not ill-appearing or di aphoretic. HENT: Head: Comments: Left temporal tenderness on palpation. Hematoma of the left ear. Mouth/Throat: Mouth: Mucous membranes are moist. Pharynx: Oropharynx is clear. No oropharyngeal exudate. Eyes: Extraocular Movements: Extraocular movements intact. Right eye: Nystagmus present. Left eye: Nystagmus present. Conjunctiva/sclera: Right eye: Right conjunctiva is injected. Left eye: Left conjunctiva is injected. Pupils: Pupils are equal, round, and reactive to light. Comments: Bilateral nystagmus Neck: Comments: No step off tenderness of the cervical spine Cardiovascular: Rate and Rhythm: Normal rate and regular rhythm. Pulses: Normal pulses. Heart sounds: Normal heart sounds. No murmur. Pulmonary: Effort: Pulmonary effort is normal. No respiratory distress. Breath sounds: Normal breath sounds. No wheezing or rhonchi. Abdominal: General: Abdomen is flat. Bowel sounds are normal. There is no distension. Palpations: Abdomen is soft. Tenderness: There is no abdominal tenderness. There is no gu arding or rebound. Musculoskeletal: General: No swelling or deformity. Comments: abrasion to right wrist from prior fall Skin: General: Skin is warm and dry. Capillary Refill: Capillary refill takes less than 2 seconds . Neurological: General: No focal deficit present. Mental Status: He is alert and oriented to person, place, an d time. Motor: No weakness. Diagnostic Testing ED Labs Ordered and Reviewed COMPREHENSIVE METABOLIC PANEL (AK,AV,EU,FV,HL,FLORENCIO,MM,SP) - Ab normal; Notable for the following components: Result Value Ref Range Potassium 3.0 (*) 3.7 - 5.1 mmol/L Glucose 72 (*) 74 - 99 mg/dL BUN 6 (*) 9 - 24 mg/dL Creatinine 0.48 (*) 0.73 - 1.22 mg/dL Calcium 7.9 (*) 8.5 - 10.2 mg/dL AST 140 (*) 14 - 40 U/L All other components within normal limits CBC + AUTO DIFF (AK,AV,EU,FV,HL,FLORENCIO,MM,SP) - Abnormal; Notabl e for the following components: RBC 3.72 (*) 4.63 - 6.08 mil/cmm HGB 12.3 (*) 13.7 - 17.5 g/dL Hematocrit 36.0 (*) 40.1 - 51.0 % MCV 96.8 (*) 83.2 - 95.6 fl MCH 33.1 (*) 25.7 - 32.2 pg RDW-SD 47.0 (*) 36.1 - 45.8 fl Platelet Count 36 (*) 141 - 365 thou/cmm All other components within normal limits ALCOHOL / ETHANOL BLOOD (AK,AV,EU,FV,HL,FLORENCIO,MM,SP) - Abnormal ; Notable for the following components: Alcohol, Serum 47.0 (*) <11 mg/dL All other components within normal limits MAGNESIUM BLOOD (AK,AV,EU,FV,HL,FLORENCIO,MM,SP) - Abnormal; Notabl e for the following components: Magnesium 1.2 (*) 1.7 - 2.3 mg/dL All other components within normal limits PROTHROMBIN TIME / PT (AK,AV,EU,FV,HL,FLORENCIO,MM,SP) URINE DRUG SCREEN (AK,AV,EU,FV,HL,FLORENCIO,MM,SP) LIPASE BLOOD (AK,AV,EU,FV,HL,FLORENCIO,MM,SP) MDRD GFR EXPEDITED COVID19 Procedures ED Course / Clinical Impression Clinical Impressions as of Jun 17 30 Subdural hematoma (HCC) Thrombocytopenia (HCC) ETOH abuse Hypokalemia Hypomagnesemia MDM / Disposition / Plan MDM Meryl Ogden is a 49 year old male who presented to the ED from [place] for a subdural hematoma following and unwitnessed but suspec julieth lopez. Initial workup/management includes the following: Labs: CBC, CMP, GFR, lipase, Mg, ETOH level, Urine tox, PT/I NR, COVID Meds: ativan, Zofran, fentanyl Imaging: CT brain, CT neck, CXR done at [place] ED EKG: Normal At this time, the decision was made to admit the patient to the ICU for further management. I discussed this with the patient, who w as agreeable to the plan. The patient was admitted to Dr. Wang in stabl e condition. SIGNATURE: Willow Daugherty (Res) MD Kwan Resident 06/16/20 1912 I performed a history and physical examination of the patien t and discussed the management with the resident. I reviewed the r oscart's note and agree with the documented findings and plan of care. Harini Nolen DO 06/17/20 0030 ed note on ED NOTE HNO ID: [id number] Normal 06-17-2020 [facility] Author: Kwasi (Rn) MANDY Rivera [place] ([id number]) Service: Emergency Medicine Author Type: Registered Nurse Type: ED Notes Filed: 06/17/2020 12:16 AM Note Text: Patient swabbed for COVID and sent to lab ct brain wo ivcon o n 2020-06-17 CT BRAIN WO IVCON Final Report Normal 0 [facility] DATE OF EXAM: Jun 17 2020 4:03PM [facility] 0504 - CT BRAIN WO IVCON / ([id number]) PROCEDURE REASON: Intracranial hemorrhage Physician Interpretation EXAMINATION: CT BRAIN WO IVCON CLINICAL HISTORY: Multifocal fall, intracranial hemorrhage. TECHNIQUE: Serial axial images without IV contrast were obta ined from the vertex to the foramen magnum. MQ: CTBWO_3 CT Dose-Length Product (DLP): [address] Dose Reduction Employed: Iterative recon COMPARISON: 06/17/2020 at 5:01 AM. RESULT: Post-operative change: None. Acute change: No CT evidence of acute cortical infarct. Hemorrhage: Unchanged acute on chronic extra-axial hemorrhag es along the right cerebral convexity, with the minimal mass effect o n the right frontal lobe. These measures up to 13 mm in thickness. No si gnificant midline shift. Mass Lesion / Mass Effect: No significant midline shift. Chronic change: Scattered patchy foci of low attenuation are present within supratentorial white matter which is a nonspecific fi nding but likely represents mild microvascular ischemia. Parenchyma: There is mild generalized volume loss. The brain parenchyma is otherwise within normal limits for age. Ventricles: Ventricular enlargement concordant with the degr ee of parenchymal volume loss. Paranasal sinuses and skull base: The visualized paranasal s inuses are grossly clear. The skull base and imaged soft tissues are un remarkable. Warp Preparer (topogram) images: No additional findings. IMPRESSION: Unchanged acute on chronic extra-axial hemorrhages along rig ht cerebral convexity, with minimal mass effect on right frontal lobe. N o evidence of midline shift. Hand Endband Cutter: ZORAN Transcribe Date/Time: Jun 18 2020 7:24A Dictated by : CARLOS PELAEZ MD This examination was interpreted and the report reviewed and electronically signed by: CARLOS PEALEZ MD on Jun 18 2020 7:31AM EST CT BRAIN WO IVCON Final Report Normal 0 [facility] DATE OF EXAM: Jun 17 2020 5:07AM [facility] 0504 - CT BRAIN WO IVCON / ([id number]) PROCEDURE REASON: Head trauma, headache Physician Interpretation EXAMINATION: CT BRAIN WO IVCON CLINICAL HISTORY: Head trauma, headache. TECHNIQUE: Serial axial images without IV contrast were obta ined from the vertex to the foramen magnum. MQ: CTBWO_3 CT Dose-Length Product (DLP): [address] Dose Reduction Employed: Iterative recon COMPARISON: Outside hospital CT head on 06/16/2020. RESULT: Post-operative change: None. Acute change: No CT evidence of acute cortical infarct. Hemorrhage: Unchanged size of acute on chronic extra-axial h emorrhage along the right frontal convexity measuring 8 mm in thicknes s. There is interval redistribution relation with the small amount of hy perdense hemorrhage layering posteriorly near the vertex. Minimal mas s effect on adjacent the right frontal cortex.2 Mass Lesion / Mass Effect: No significant midline shift. Chronic change: Patchy foci of low attenuation coefficient a re present within the supratentorial white matter which is a nonspecifi c finding but likely represents moderate microvascular ischemia. Parenchyma: There is moderate generalized volume loss. The b rain parenchyma is otherwise within normal limits for age. Ventricles: Ventricular enlargement concordant with the degr ee of parenchymal volume loss. Paranasal sinuses and skull base: The visualized paranasal s inuses are grossly clear. The skull base and imaged soft tissues are un remarkable. Warp Preparer (topogram) images: No additional findings. IMPRESSION: Unchanged size of acute on chronic extra-axial hemorrhage al sandy right cerebral convexity measuring 8 mm in thickness. Slightly inc reased dependent hyperdense component near vertex is likely redistr ibution of acute hemorrhage. No CT evidence of acute cortical infarct. Chronic small vessel ischemic white matter disease and diffu se cerebral volume loss. Hand Endband Cutter: PSCB Transcribe Date/Time: Jun 17 2020 7:40A Dictated by : CARLOS PELAEZ MD This examination was interpreted and the report reviewed and electronically signed by: CARLOS PELAEZ MD on Jun 17 2020 7:49AM EST consult on CONSULT HNO ID: [id number] Normal 06-17-2020 [facility] ([id number]) Author Type: Physician Type: Consults Filed: 06/19/2020 1:26 PM Note Text: CONSULT: Neurosurgery Service SERVICE DATE: 06/16/2020 SERVICE TIME: 11:29 PM REASON FOR CONSULT: SDH REQUESTING PHYSICIAN: Dr Wang Subjective 49 year old male who presents after unknown trauma (patient does not recall incident but thinks he might have fallen). Patient wa s on his porch around 4 pm today waiting for a friend to come pick him up. He doesn't recall what happened next but he then remembers waking up on the ground unable to move with the ambulance arriving. He reports somet kimani similar happened three years ago when he fell and hit his head, resu lting in a head bleed. He was admitted to a half-way care facility at that time and required therapy to regain motor function. He drinks daily, report he only had one drink today when he usually has at least 6 FUNCTIONAL STATUS: Independent PAST MEDICAL HISTORY Diagnosis Date - ASTHMA UNSPECIFIED - HYPERTENSION NOS Essential hypertension No past surgical history on file. No family history on file. Social History Tobacco Use - Smoking status: Former Smoker Quit date: 07/11/2000 Years since quittin.9 Substance Use Topics - Alcohol use: Yes Alcohol/week: 5.0 standard drinks - Drug use: No (Not in a hospital admission) Current Facility-Administered Medications Medication Dose Route Frequency - LORazepam 1 mg tab(s) (ATIVAN) 1 mg ORAL q 1 H PRN Or - LORazepam 1 mg injection (ATIVAN) 1 mg INTRAVENOUS q 1 H P RN - thiamine 200 mg in NaCl 0.9% 50 mL 200 mg INTRAVENOUS q 8 H Followed by - [START ON 06/19/2020] thiamine 100 mg tab(s) (VITAMIN B1) 1 00 mg ORAL/FEEDING TUBE TID - ondansetron 4 mg tab(s) (ZOFRAN) 4 mg ORAL q 6 H PRN Or - ondansetron (PF) 4 mg injection (ZOFRAN) 4 mg INTRAVENOUS q 6 H PRN - NaCl 0.9% iv infusion 125 mL/hr INTRAVENOUS CONTINUOUS - magnesium sulfate in sterile water 2 g in sterile water 50 ml 2 g INTRAVENOUS ONCE - potassium chloride iv piggyback 20 mEq/100 mL 20 mEq INTRA VENOUS ONCE - [START ON 06/17/2020] potassium chloride iv piggyback 20 mEq /100 mL 20 mEq INTRAVENOUS ONCE Allergies As of Date: 06/16/2020 Allergen Noted Reaction BENADRYL [DIPHENHYDRAMINE HCL] 07/11/2005 Swelling CALADRYL CLEAR [PRAMOXINE-CAMPHOR*07/11/2005 Swelling Fully Assessed 06/16/2020 COMPLETE REVIEW OF SYSTEMS: PAIN ASSESSMENT: Negative for pain, history of chronic pain, or current treatment for a chronic pain condition. GENERAL: No weight loss, malaise or fevers HEENT: Negative for frequent or significant headaches, No ch anges in hearing or vision, no nose bleeds or other nasal problems, N o nasal bleeding, congestion or rhinorrhea NECK: Negative for lumps, goiter, pain and significant neck swelling RESPIRATORY: Negative for cough, hemoptysis, wheezing, COPD, dyspnea or shortness of breath CARDIOVASCULAR: Negative for chest pain, leg swelling, hyper tension, CHF or palpitations GI: chronic nausea Objective PHYSICAL EXAM: Physical Exam Performed: GENERAL: Alert, no distress, cooperative SKIN: Skin color, texture, turgor normal. No rashes or lesio ns. HEAD/SINUSES: No significant findings EYES: PERRLA, EOMI NECK: No jugulovenous distention, Supple LUNGS: RA. No ocugh or wheeze CARDIAC: RRR< good peripheral perfusion and palpable periphe ral pulses ABDOMEN: Soft, nontender EXTREMITIES: Extremities normal, no deformities, edema, club julita or skin discoloration. Good capillary refill., no asterixis NEURO: Grossly normal cognition, motor function, and cranial nerves III-XII BP 139/97 Pulse 87 Temp (Src) 99.3 (Oral) Resp 22 Ht 6' 3 (1.91m) Wt 150 lb (68.0kg) SpO2 98% BMI 18.75 kg/(m2). O2 Therapy: Room Air DATA: Labs: Recent Labs 06/16/20 2220 NA 140 K 3.0* CHLOR 98 CO2 28 BUN 6* CREAT 0.48* GLUC 72* ANION 14 CA 7.9* MG 1.2* ALB 4.0 AST 140* ALT 45 ALKPHOS 74 TBILI 0.7 WBC 4.66 HB 12.3* HCT 36.0* PLT 36* INR 1.09 Diagnostic tests reviewed for today's visit: Most recent labs and imaging results. Assessment/Plan Assessment and Plan: 49 year old male with PMH alcoholism who presents with acute on subacute SHD Subdural hematoma - keppra 1 g BID - AM CT H repeat - admit to ICU for frequent neuro exams and close monitoring - NPO, IVF - no DVT chemo ppx or AC/AP - no acute surgical intervention - Discussed with attending Dr Colin at 11:25 PM SIGNATURE: Shelbi Downey MD PATIENT NAME: Meryl Ogden DATE: June 16, 2020 TIME: 11:29 PM Pager: [phone] I reviewed the pertinent patient history and examination per formed by PA/MARKETING SERVICES REP and examined the patient myself on June 17, 2020 U nless indicated below I agree with the plan of care discussed. Willow Leach MD CONSULT HNO ID: [id number] Normal 06-17-2020 [facility] Author: Shelbi [facility]Hussein[facility] Service: General Surgery ([id number]) Author Type: Resident Type: Consults Filed: 06/17/2020 12:02 AM Note Text: CONSULT: SICU Surgery Service SERVICE DATE: 06/16/2020 SERVICE TIME: 11:04 PM REASON FOR CONSULT: subdural hematoma REQUESTING PHYSICIAN: ED Subjective 49 year old male presents to [facility] as a transfer from [place] . He apparently fell at home on his porch around 4 o'clock and castro d a positive LOC, not remembering what happened for a lengthy period of t evie afterwards. He does report not being able to get up after fa lling and is unsure as to why. He denies any headache, nausea, or vomitin g. He does complain of some neck pain. The patient is a chronic alcohol abuser drinking a 6-pack of beer per day, and he admits to drinking 1 beer prior to falling tonight. His last full meal was yesterday afterno on. FUNCTIONAL STATUS: Independent PAST MEDICAL HISTORY Diagnosis Date - ASTHMA UNSPECIFIED - HYPERTENSION NOS Essential hypertension No past surgical history on file. No family history on file. Social History Tobacco Use - Smoking status: Former Smoker Quit date: 07/11/2000 Years since quittin.9 Substance Use Topics - Alcohol use: Yes Alcohol/week: 5.0 standard drinks - Drug use: No (Not in a hospital admission) Current Facility-Administered Medications Medication Dose Route Frequency - LORazepam 1 mg tab(s) (ATIVAN) 1 mg ORAL q 1 H PRN Or - LORazepam 1 mg injection (ATIVAN) 1 mg INTRAVENOUS q 1 H P RN - thiamine 200 mg in NaCl 0.9% 50 mL 200 mg INTRAVENOUS q 8 H Followed by - [START ON 06/19/2020] thiamine 100 mg tab(s) (VITAMIN B1) 1 00 mg ORAL/FEEDING TUBE TID - ondansetron 4 mg tab(s) (ZOFRAN) 4 mg ORAL q 6 H PRN Or - ondansetron (PF) 4 mg injection (ZOFRAN) 4 mg INTRAVENOUS q 6 H PRN - NaCl 0.9% iv infusion 125 mL/hr INTRAVENOUS CONTINUOUS - fentaNYL 50 mcg/mL 50 mcg injection (SUBLIMAZE) 50 mcg INT RAVENOUS ONCE - LORazepam 1 mg injection (ATIVAN) 1 mg INTRAVENOUS ONCE Allergies As of Date: 06/16/2020 Allergen Noted Reaction BENADRYL [DIPHENHYDRAMINE HCL] 07/11/2005 Swelling CALADRYL CLEAR [PRAMOXINE-CAMPHOR*07/11/2005 Swelling Fully Assessed 06/16/2020 COMPLETE REVIEW OF SYSTEMS: Is the patient having any pain? Yes LOCATION: neck Constitutional: Negative Eye/Ear/Nose: Negative Respiratory: Negative Cardiovascular: Negative GI/Liver/Biliary: Negative Genitourinary: Negative Psychiatric: Negative Neurologic: see hpi Musculoskeletal: Negative Integument: chronic RUE wound Endocrine: Negative Heme/Lymph: Negative Objective PHYSICAL EXAM: Physical Exam Performed: ? PRIMARY SURVEY AIRWAY: Patent BREATHING: Breath sounds equal CIRCULATION: PT/DP 2+, Radials 2+, Femoral 2+, Carotid 2+ DISABILITY: Eye: 4=Spontaneous Verbal: 5=Oriented and Converses Motor: 6=Obeys Commands Total GCS: 15=4 Resp Rate: 10 to 29=4 Syst BP: > than 89=4 REVISED TRAUMA SCORE: 12 EXPOSE / ENVIRONMENT: Warm Blankets PROCEDURES: none ? SECONDARY SURVEY VITALS: stable NEURO: Alert AND Oriented x 3, GCS 15, Cranial Nerves II-XII Intact, Moves All Extremities HEENT: Head: No lacerations or abrasions, no bony step offs, midface stable to palpation, Eyes: PERRL, conjunctiva/corneas withou t lesions, EOM intact, Throat: Oral mucosa without lacerations, teeth in pl [place], tongue without lacerations, tenderness lateral to left canthus NECK: No lacerations/wounds, No JVD, Trachea midline, midlin e cervical tenderness RESPIRATORY: No abrasions or contusions, No crepitus, No TTP CARDIOVASCULAR: Heart rate regular ABDOMEN: Non-distended, No scars or lacerations, Non-tendern ess or peritoneal signs, No masses or organomegaly PELVIC/PERINEAL: Pelvis stable to palpation BACK/SPINE: Thoracolumbar spinal column non-tender, No step off or deformity noted, No external injury noted EXTREMITIES: free AROM, no pain with palpation RADIOLOGICAL/ OTHER TEST DATA: CTH, CXR: subdural hematoma ? ? PRIOR TO ARRIVAL: Cervical Collar BP 139/97 Pulse 87 Temp (Src) 99.3 (Oral) Resp 22 Ht 6' 3 (1.91m) Wt 150 lb (68.0kg) SpO2 98% BMI 18.75 kg/(m2). O2 Therapy: Room Air DATA: Labs: Recent Labs 06/16/20 2220 NA 140 K 3.0* CHLOR 98 CO2 28 BUN 6* CREAT 0.48* GLUC 72* ANION 14 CA 7.9* MG 1.2* ALB 4.0 AST 140* ALT 45 ALKPHOS 74 TBILI 0.7 WBC 4.66 HB 12.3* HCT 36.0* PLT 36* INR 1.09 Diagnostic tests reviewed for today's visit: Most recent labs and imaging results. Assessment/Plan Assessment and Plan: 49 year old male with a subdural hematoma following a fall f rom his porch on 06/16/20 Neuro: - Pain Control: tylenol, oxycodone - Sedation: none - Seizure ppx: keppra 1000mg bid - q 1hr neurochecks - head of bed elevated 30 degrees - CIWA protocol - repeat CTH in am CV: - monitor vitals - maintain MAP>65 Resp: - monitor for hypoxia GI: - monitor bowel function Renal: - IVF NS - monitor IsANDOs - replete lytes prn No intake or output data in the 24 hours ending 06/16/20 065 9 Heme: - monitor for anemia - am CBC - 1 unit of platelets for thrombocytopenia in the setting of an acute bleed. Endo: - monitor for hyper/hypoglycemia ID: - no sign of infection - wrist abrasions cleaned in ED Ext: - DVT ppx: SCDs - Restraints: no Ppx: - DVT: SCDs - GI: no - Seizure: keppra Lines: Peripheral Left Antecubital 18 Gauge (Active) Consults: - SICU, Neurosurgery Dispo: TBD Patient Checklist Deep vein thrombosis prophylaxis administered? Yes. Stress ulcer prophylaxis? Yes. Pain addressed? Yes. Nutrition: Enteral- No. TPN- No. PO- No. Restraints? No. Dispo needs assessed? No. SIGNATURE: George Cohen DO PATIENT NAME: Meryl Ogden DATE: June 16, 2020 TIME: 11:04 PM Pager: [phone] comprehensive metabolic panel on 2020-06-17 Albumin [Mass/Vol] 4.0 3.9-4.9 g/dL Normal 06-17-2020 [facility] ([id number]) Comment: Performed By: #### CMP #### [place] [id number] ALP [Catalytic activity/Vol] 74 38-113 U/L Normal 0 06-17-2020 [facility] (00 000) Comment: Performed By: #### CMP #### [place] [id number] ALT [Catalytic activity/Vol] 45 10-54 U/L Normal 0 06-17-2020 [facility] (00 000) Comment: Performed By: #### CMP #### [facility] [address] [place], [place] [address] Anion gap [Moles/Vol] 14 9-18 mmol/L Normal 06-17-20 20 [facility] ([id number]) Comment: Performed By: #### CMP #### [facility] [address] [place], [place] [address] AST [Catalytic activity/Vol] 140 14-40 U/L High 0 06-17-2020 [facility] (00 000) Comment: Performed By: #### CMP #### [facility] [address] [place], [place] [address] Bilirubin [Mass/Vol] 0.7 0.2-1.3 mg/dL Normal 0 [facility] ([id number]) Comment: Performed By: #### CMP #### [facility] [address] [place], [place] [address] Calcium [Mass/Vol] 7.9 8.5-10.2 mg/dL Low 06-17-2020 [facility] ([id number]) Comment: Performed By: #### CMP #### [facility] [address] [place], [place] [address] Chloride [Moles/Vol] 98 97-105 mmol/L Normal 0 [facility] ([id number]) Comment: Performed By: #### CMP #### [facility] [address] [place], [place] [address] CO2 Blood 28 22-30 mmol/L Normal 06-17-2020 [facility] ([id number]) Comment: Performed By: #### CMP #### [facility] [address] [place], [place] [address] Creatinine [Mass/Vol] 0.48 0.73-1.22 mg/dL Low 06-17-20 20 [facility] ([id number]) Comment: Performed By: #### CMP #### [facility] [address] [place], [place] [address] Glucose [Mass/Vol] 72 74-99 mg/dL Low 06-17-2020 [facility] ([id number]) Comment: Result Comment: The [place] Diabetes Association (ADA) provides guidance for cutoff values for fastin g glucose and random glucose. The ADA defines fasting as n o caloric intake for at least 8 hours.Fasting plasma glucose results between 100 to 125 mg/dL indicate increased risk for diabetes (prediabetes). Fasting plasma glucose resul ts greater than or equal to 126 mg/dL meet the criteria for diagnosis of diabetes. In the absence of unequivocal hyper glycemia, results should be confirmed by repeat testing. In a patient with classic symptoms of hyperglycemia or hyperglycemic crisis, random plasma glucose results great er than or equal to 200 mg/dL meet the criteria for diagno sis of diabetes. Reference: Standards of Medical Care in Diabetes 2016; [place] [employer] Association. Diabetes Care. 2016;39(Suppl 1). Performed By: #### CMP #### [facility] [address] [place], [place] [address] Potassium [Moles/Vol] 3.0 3.7-5.1 mmol/L Low 06-17-20 20 [facility] ([id number]) Comment: Performed By: #### CMP #### [facility] [address] [place], [place] [address] Protein [Mass/Vol] 6.8 6.3-8.0 g/dL Normal 06-17-2020 [facility] ([id number]) Comment: Performed By: #### CMP #### [facility] [address] [place], [place] [address] Sodium [Moles/Vol] 140 136-144 mmol/L Normal 06-17-2020 [facility] ([id number]) Comment: Performed By: #### CMP #### [facility] [address] [place], [place] [address] Urea nitrogen [Mass/Vol] 6 9-24 mg/dL Low 06-17 [facility] ([id number]) Comment: Performed By: #### CMP #### [facility] [address] [place], [place] [address] case mgt init asses on 2020-06-17 CASE MGT INIT HNO ID: [id number] Normal 020 [facility] Author: Melissa (Sw) [facility] Service: Social Work ([id number]) Author Type: Shoder Filler Type: Care Mgt Initial Assessment Filed: 06/17/2020 3:42 PM Note Text: CARE MANAGEMENT: ASSESSMENT AND DISCHARGE PLAN SERVICE DATE: June 17, 2020 SERVICE TIME: 3:31 PM PRIMARY CARE PHYSICIAN: Yoko Glover MD ADMISSION STATUS: Inpatient Needs Prior to Discharge: To Be Determined MEDICAL: [facility] 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 Last discharge within 30 days: No Advance Directive: Current Advance Directive: None Catering Associate Attempted to Assist with AD Completion: Yes Action: Patient Unwilling Health LiteracyHow often do you need to have someone help yo u when you read instructions, pamphlets, or other written material from your doctor or pharmacy? : 1 - Never How confident are you filling out medical forms by yourself? : 1 - Extremely Baseline Mental Status Prior to this Illness what was the patient's Baseline Mental Status?: Alert AND Oriented Prior to this illness, has anyone described the patient havi ng any of the following behaviors?: Not Applicable Relationship of the informant to the patient:: Self Functional Status: Independent Does Patient Currently Receive Any Community Services or [facility] Care?: None Equipment Prior to Admission: None SOCIAL: Living Arrangements: Home Lives With: Alone Financial Resources: EmployedPrimary Contact: Extended Emerg ency Contact Information Primary Emergency Contact: GERONIMO VILLATORO Address: [address] [place] [address] Relation: Spouse Supportive Patient Contact:: Yes Contact Resources: Family Family Name/Phone: ex-spouse and two adult children Social Needs Food insecurity Worry: Never true Inability: Never true Resources Needed: No Social Needs Financial resource strain: Not very hard Social Needs Transportation needs Medical: No Non-medical: No Caregiver Assessment Patient's perception of need for this admission: fall Medication Adherance I am convinced of the importance of my prescription medicati on: 0 - Agree Completely I worry that my prescription medication will do more harm th an good to me : 0 - Disagree Completely I feel financially burdened by my [id number] expenses for my prescription medication:: 0 - Disagree Completely Risk Score: 0 Patient is categorized as: Low risk < 2 Are you interested in bedside delivery of your medications? No Is Patient Psychosocially Complex?: Yes, refer to Social Wor k ASSESSMENT AND PLAN: Medical Needs: Medical Needs: Fall risk or frequent falls Psychosocial Needs: Psychosocial Needs: CAGE/Alcohol Assessment and ALCOHOL USE/ABUSE CAGE ASSESSMENT Two or More Affirmative Responses Suggest a Client is a Prob je Drinker. - Have you felt the need to cut down on your drinking? Yes - Do you feel annoyed by people complaining about your drink ing? Yes - Do you ever feel guilty about your drinking? Yes - Do you ever drink an eye-beaming inspector in the morning to relieve shakes? 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 +PCP (Dr. Elmer Bolton- [facility], [place]). Discussed plan of care and recommendation for acute rehab. P t refusing stating he needs to d/c home. Declined conversation at this time re: home PT/OT. (PT 6 Clicks Score 14; OT 6 Clicks Score 14). Completed CAGE assessment with pt stating hx of substance us e tx at [facility] in [place]. Discussed assessment and treatment suppor ts available; Pt declined additional resource information at this time.. E ducation provided on cessation of use to encourage healthy life patte rns. Transitional care plan: tbd; Home with [facility] SIGNATURE: DRE Whitaker PATIENT NAME: Meryl Ogden DATE: June 17, 2020 TIME: 3:31 PM PAGER/CONTACT #: [phone] case managem on CASE MANAGEM HNO ID: [id number] Normal 06-17-20 [facility] Author: Belén Maldonado (Sw)Jermain [place] ([id number]) Service: Social Work Author Type: Shoder Filler Type: Care Mgt Progress Note Filed: 06/17/2020 4:21 PM Note Text: CARE MANAGEMENT PROGRESS NOTE SERVICE DATE: 06/17/2020 SERVICE TIME: 4:04 PM LOS: 0 days Lengthy phone conversation with pt mother, Jacqueline Rodriguez ([phone]). Pt mother and father live in [place] at [facility]. Mother reports pt does not have income and she is sending him money each month for bills and food. Pt has one or two friends in apartment complex they may be helpful. Mother adds she does not think pt was able t o care for himself before accident. Pt has steep steps leading to apart ment that mother does not feel he can climb. Mother shares pt no longer has a vehicle and walks to store when able. Pt mother concerned pt may be drinking again but is not sure. S W not able to verify lab information with pt mother. Pt mother states ex-spouse speaks with pt on occasion; pt castro s two minor children who reside with ex-spouse. D/c planning: Assess pt ability to identify safety issues; n o caregiver to assist at home; recommendation for acute rehab. Pt mother to discuss concerns. Continue to follow. SIGNATURE: DRE Whitaker PATIENT NAME: Meryl Ogden DATE: June 17, 2020 TIME: 4:04 PM PAGER/CONTACT #: [phone] basic metabolic panel on 2020-06-17 Anion gap [Moles/Vol] 15 9-18 mmol/L Normal 06-17-20 [facility] ([id number]) Comment: Performed By: #### BMP #### [facility] [address] [place], [place] [address] Calcium [Mass/Vol] 8.0 8.5-10.2 mg/dL Low 06-17-2020 [facility] ([id number]) Comment: Performed By: #### BMP #### [facility] [address] [place], [place] [address] Chloride [Moles/Vol] 96 97-105 mmol/L Low 0 [facility] ([id number]) Comment: Performed By: #### BMP #### [facility] [address] [place], [place] [address] CO2 Blood 26 22-30 mmol/L Normal 06-17-2020 [facility] ([id number]) Comment: Performed By: #### BMP #### [facility] [address] [place], [place] [address] Creatinine [Mass/Vol] 0.50 0.73-1.22 mg/dL Low 06-17-20 20 [facility] ([id number]) Comment: Performed By: #### BMP #### [facility] [address] [place], [place] [address] Glucose [Mass/Vol] 67 74-99 mg/dL Low 06-17-2020 [facility] ([id number]) Comment: Result Comment: The [place] Diabetes [employer] (ADA) provides guidance for cutoff values for fastin g glucose and random glucose. The ADA defines fasting as n o caloric intake for at least 8 hours.Fasting plasma glucose results between 100 to 125 mg/dL indicate increased risk for diabetes (prediabetes). Fasting plasma glucose resul ts greater than or equal to 126 mg/dL meet the criteria for diagnosis of diabetes. In the absence of unequivocal hyper glycemia, results should be confirmed by repeat testing. In a patient with classic symptoms of hyperglycemia or hyperglycemic crisis, random plasma glucose results great er than or equal to 200 mg/dL meet the criteria for diagno sis of diabetes. Reference: Standards of Medical Care in Diabetes 2016; [place] [employer] Association. Diabetes Care. 2016;39(Suppl 1). Performed By: #### BMP #### [facility] [address] [place], [place] [address] Potassium [Moles/Vol] see below 3.7-5.1 Normal 06-17-20 [facility] (00 000) Comment: Result Comment: Unable to as say. Specimen Hemolyzed Performed By: #### BMP #### [facility] [address] [place], [place] [address] Sodium [Moles/Vol] 137 136-144 mmol/L Normal 06-17-2020 [facility] ([id number]) Comment: Performed By: #### BMP #### [facility] [address] [place] [address] Urea nitrogen [Mass/Vol] 5 9-24 mg/dL Low 06-17 [facility] ([id number]) Comment: Performed By: #### BMP #### [facility] [address] [place] [address] alcohol, serum on 2 Alcohol, Serum 47.0 < 11 mg/dL High 06-17-2020 [facility] ([id number]) Comment: Performed By: #### ALCO3 ### # [facility] [address] [place] [address] activated ptt on 28-06-09 aPTT Coag (Bld) [Time] 27.9 23.0-32.4 sec Normal [facility] (00 000) Comment: Result Comment: Unfractionat ed Heparin Therapeutic Ranges: Standard Heparin Nomogram: 53 to 78 seconds (anti-Xa le mario of 0.3 to 0.7 U/mL) Low Dose/ACS Nomogram: 49 to 67 seconds (anti-Xa le mario of 0.2 to 0.5 U/mL) Stroke Treatment Nomogram: 49 to 67 seconds (anti-Xa le mario of 0.2 to 0.5 U/mL) Note: The APTT therapeutic r liz has been determined for the current lot of laboratory AP TT reagent in use throughout the [facility]. Performed By: #### ALCO3 ### # [facility] [address] [place] [address] abo/rh confirmation on 2020-06-17 ABO group Nom (Bld) B Normal 06-17-2020 [facility] ([id number]) Comment: Performed By: #### ALCO3 ### # [facility] [address] [place] [address] RH Type Positive Normal 06-17-2020 [facility] ([id number]) Comment: Performed By: #### ALCO3 ### # [facility] [address] [place] [address] ed note on ED NOTE HNO ID: [id number] Normal 06-16-2020 [facility] Author: Jessica (RnZahraa Strickland RN [place] ([id number]) Service: ? Author Type: Registered Nurse Type: ED Notes Filed: 06/16/2020 9:18 PM Note Text: Bed: 16-ED Expected date: Expected time: Means of arrival: Comments: YASH TRAUMA CONSULT Procedures Procedure Name Date Provider Location Antibody screen 06-17-2020 [facility] ([id number]) Comment: Performed By: #### ALCO3 ### # [facility] [address] [place], [place] [address] Summary Purpose Family History No Family History Records FoundNo Family History Records Found Advance Directives No Advanced Directives Records FoundNo Advanced Directives Records Found Additional Source Comments FOR RECORDS PERTAINING TO PATIENTS WHO ARE OR HAVE BEEN ENROLLED IN A CHEMICAL DEPENDENCY/SUBSTANCE ABUSE PROGRAM, SOME INFORMATION MAY BE OMITTED. This clinical summary was aggregated from multiple sources. Caution should be exercised in using it in the provision of clinical care. This summary normalizes information from multiple sources, and as a consequence, information in this document may materially changethe coding, format and clinical context of patient data. In addition, data may be omittedin some cases. CLINICAL DECISIONS SHOULD BE BASED ON THE PRIMARY CLINICAL RECORDS. [facility] provides no warranty or guarantee of the accuracy or completeness of information in this document. UNRECOGNIZED CONTENT PROVIDED BELOW FOR UNRECOGNIZED SECTION No Status Records FoundNo Status Records Found UNRECOGNIZED CONTENT PROVIDED BELOW FOR UNRECOGNIZED SECTION INFORMATION SOURCE DATE CREATED AUTHOR AUTHOR'S ORGANIZATIO N 07/02/2020 [facility] DATE CREATED AUTHOR AUTHOR'S ORGANIZATIO N 07/13/2020 [facility]
--- OUTSIDE RECORDS SUMMARY | 2020-07-26 15:06 | XMS RPT_ITS | CCD ---
:1970 External Reference #:[id number] Author Organization [facility] Care Team Providers Name Role Phone Unavailable Unavailable Unavailable Results Result Name Value Range Unit Interpretation Flag Date Location plan of care on PLAN OF CARE HNO ID: [id number] Normal 06-22-20 [facility] Author: Laura Tyler (Adz Worker) Center ([id number]) Service: Pharmacy Author Type: Pharmacist Type: Plan [...] total of 7 da ys. Laura Tyler, Adz Worker June 22, 2020 4:21 PM Medication List START taking these medications levETIRAcetam 1,000 mg tablet Commonly known as: KEPPRA Take 1 tablet by mouth twice daily for 4 doses. [facility] Carined walker Where to Get Your Medications These medications were sent to [facility] [address] [id number] Hours: Monday-Monday, 8am-6:30pm ? levETIRAcetam 1,000 mg tablet You can get these medications from any pharmacy Bring a paper prescription for each of these medications ? [place] [facility] [place] NURSING HNO ID: [id number] Normal 06-22-2020 [facility] Author: Mercy StephensonRn) MANDY Saucedo General Service: Nursing Med ical Author Type: Registered Nurse Center Type: Nursing Progress Note ([id number]) Filed: 06/22/2020 11:54 AM Note Text: Nursing Progress Note Patient Name: Merly Ogden Patient Location: [address]/PX-[id number] Patient anxious to be discharged home, BP 149/106. Destinee Faye in CLIENT STRATEGIST notified, no new orders received. Will continue to monitor. This note was completed by: Mercy Saucedo RN case managem on CASE MANAGEM HNO ID: [id number] Normal 06-22-20 [facility] Author: Maggy Dhaliwal (Sw) [place] ([id number]) Service: ? Author Type: Groutman Type: Care Mgt Progress Note Filed: 06/23/2020 11:57 AM Note Text: CARE MANAGEMENT PROGRESS NOTE SERVICE DATE: 06/23/2020 SERVICE TIME: 11:55 AM LOS: 5 days [facility] follow-up Per [facility], pt needs to schedule an appointment with his PCP. Called pt and LM explaining to make an appointment JOSUÉ with his PCP as we ll as provided [facility] phone number and informed him they are trying to get in touch with him for SOC. SIGNATURE: WILLIAM Quiroga PATIENT NAME: Meryl Ogden DATE: June 23, 2020 TIME: 11:55 AM PAGER/CONTACT #: [phone] CASE MANAGEM HNO ID: [id number] Normal 06-22-20 [facility] Author: Maggy Dhaliwal (Sw) [place] ([id number]) Service: ? Author Type: Groutman Type: Care Mgt Progress Note Filed: 06/23/2020 11:34 AM Note Text: CARE MANAGEMENT DISCHARGE NOTE SERVICE DATE: 06/22/2020 SERVICE TIME: 3:50 PM LOS: 5 days Admission Date: 06/16/2020 DISCHARGE ARRANGEMENT (list agency and phone number) Discharge Arrangement: Home;Home Usp Care: PT;OT Provider Name: [facility] CAREGIVER ASSESSMENT: Caregiver is ready, willing and able to meet the patient's n eeds as recommended by the inter-professional team:: Yes Does the patient have an acute stroke diagnosis, or has the patient had a stroke during this admission?: No Patient's transition needs and plan for meeting these needs: Home with [facility] HANDOFF COMMUNICATION: Handoff to: Primary Care Physician Primary Care Physician Name/Phone: Dr. Glover TRANSPORTATION ARRANGEMENTS: Transportation Arrangements: Taxi Cab Voucher ADDITIONAL CONTACT RESOURCES: Maury Solares Pt to go home with [facility] via cab ride at 5PM. SOC in 24-48hrs . SIGNATURE: WILLIAM Quiroga PATIENT NAME: Meryl Ogden DATE: June 22, 2020 TIME: 3:50 PM PAGER/CONTACT #: [phone] CASE MANAGEM HNO ID: [id number] Normal 06-22-20 [facility] Author: Maggy Canela) Isra [place] ([id number]) Service: ? Author Type: Groutman Type: Care Mgt Progress Note Filed: 06/22/2020 2:46 PM Note Text: CARE MANAGEMENT PROGRESS NOTE SERVICE DATE: 06/22/2020 SERVICE TIME: 2:36 PM LOS: 5 days Needs Prior to Discharge: Other: See Comment;Discharge Transportation(Accepting [facility] Agency) Referrals for [facility] PT/OT sent to [facility], [facility], [facility], [facility],and [facility], [facility], [facility], [place] [facility] ( dazey), [facility] care, [facility], [facility] all unable to accept pt. Escalated this to manager diesel for assistance. Additional referrals sent to [facility], [facility], [facility], [facility], [facility], [facility], and [facility]. Awaiting replies . SIGNATURE: WILLIAM Quiroga PATIENT NAME: Meryl Ogden DATE: June 22, 2020 TIME: 2:36 PM PAGER/CONTACT #: [phone] therapy nt on 06-21 THERAPY HNO ID: [id number] Normal 06-21-2020 [facility] Author: Yuly StephensonOt/L) Dorothea General Service: ? Medical Author Type: Occupational Therapist Center Type: Therapy (PT/OT/Speech/Resp) ([id number]) Filed: 06/21/2020 9:58 AM Note Text: Occupational Therapy Treatment SERVICE DATE: 06/21/2020 SERVICE TIME: 924 to 939 ROOM: [id number] Recommended Discharge Disposition: Home OT Recommended Discharge [...] strongly against placement at acute rehab or mcfp facility at discharge. Recommend home with increased [...] ritesh Functions and Awareness Interventions Provided: Self Usp Management (77568);Co gnitive Training (41233 and 76616) 2020 New Self Usp Management (46334) Treatment Minutes: 7 Skilled Intervention(s): Instructed in [...] assist and increased support at home. Patient receptionist nurse tive, verbalized understanding. Cognitive Training Per [facility] (16804) 2020: 8 1 unit Skilled Intervention(s): Facilitated [...] my rare books?; stated he would only casing puller when car was smoking, did not state he would exit; would not unplug toaster prior to removing toast). Reviewed answers with patient; receptive, verbalized understanding. Total Timed Code Treatment Minutes: 15 Total Treatment Time (minutes): 15 SUBJECTIVE: Current Hospital Course: Chart reviewed; [facility] protocol izabella felix admission. Reason for [...] bo; didnt know city (he is from [place] Responsiveness: Alert;Awake Follows Commands: 2-step Commands;3-step Commands [...] 2 Please see discipline specific clinical documentation [facility] for complete details for this therapy evaluation/treatment. Orie nted to call ball use, need for assist when up out of bed. Bed alarm enga ged. SIGNATURE: ALINE Don/Sofie PATIENT NAME: Meryl Ogden DATE: June 21, 2020 TIME: 9:47 AM THERAPY HNO ID: [id number] Normal 06-21-2020 [facility] Author: Kentrell (PtZahraa Bennett General Service: Physical Therapy Medical Author Type: Physical Therapist Center Type: Therapy (PT/OT/Speech/Resp) ([id number]) Filed: 06/21/2020 9:07 AM Note Text: Physical Therapy Treatment SERVICE DATE: 06/21/2020 SERVICE TIME: 0835 to 0900 ROOM: [place] [address] Recommended Discharge Disposition: Home PT Recommended Discharge [...] this date. [facility]als [facility]. Patient at this time is [...] (generalized);Unsteadiness on feet Interventions Provided: Gait Training (49963);Therapeutic Ex ercise (93838) Therapeutic Exercise (30941) Treatment Minutes: 10 1 unit Skilled Intervention(s): [...] pr ovided for proper performance. Gait Training (54454) Treatment Minutes: 15 1 unit Skilled Intervention(s): [...] Step Car Transfer General Deviations/Observations: Lateral sway increased;Heiskell nce decreased;Wide base of support;Step length decreased [...] more Please see discipline specific clinical documentation [facility] for complete details for this therapy evaluation/treatment. SIGNATURE: Kentrell Bennett PT PATIENT NAME: Meryl Ogden DATE: June 21, 2020 TIME: 9:03 AM progress on 2020-06 PROGRESS HNO ID: [id number] Normal 06-21-2020 [facility] Service: General Surgery ([id number]) Author Type: Nurse Practitioner Type: Progress Notes Filed: 06/21/2020 10:31 AM Note Text: Trauma Surgery Progress Note SERVICE DATE: 06/21/2020 Trauma Service Pager: For questions or concerns Mon-Fri 6a-5p please page [phone]. After 5pm and on Weekends and Holidays, please page [phone] if in ICU or [phone] if on RNF. SUBJECTIVE: NAEON. Patient reports feeling well today and hopeful for [facility] home. Tolerating diet. Reports mild headache [...] 06/21/20 0659 06/21/20699 - 06/22/20 0659 Shift 0462-8751 6066-8575 3317-6226 24 Hour Total 7152-8433 6024-0877 7678-4319 24 Hour Total INTAKE PO 240 240 PO 240 240 IV 50 50 Volume (mL) (magnesium sulfate in sterile water 2 g in steri le water 50 ml) 50 50 Shift Total 290 290 OUTPUT Urine 1300 4361 021 3693 200 200 Void (ml) 1300 4116 626 3244 200 200 Shift Total 1300 5329 165 9743 200 200 Weight (kg) 68.5 68.5 68.4 [...] RNF. nursing prog on NURSING HNO ID: [id number] Normal 06-21-2020 [facility] Author: Jessica StephensonRn) MANDY Shay General Service: Nursing Med ica Author Type: Registered Nurse Center Type: Nursing Progress Note (68938) Filed: 06/21/2020 8:36 AM Note Text: Nursing Progress Note Patient Name: Meryl Ogden Patient Location: [place] [address]/[id number]- Notified Dr Wang of patient's elevated blood pressure This note was completed by: Jessica Shay RN case managem on CASE MANAGEM HNO ID: [id number] Nakina 06-21-20 [facility] Author: Rita StephensonRnZahraa Baeza RN [place] ([id number]) Service: Care Management Author Type: Registered Nurse [...] 21, 2020 TIME: 4:03 PM PAGER/CONTACT #: [phone] CASE MANAGEM HNO ID: [id number] Normal 06-21-[address] [place] [address] Author: Deborah Nash (Sw) [place] ([id number]) Service: ? Author Type: Groutman Type: Care Mgt Progress Note Filed: 06/21/2020 12:41 PM Note Text: CARE MANAGEMENT PROGRESS NOTE SERVICE DATE: 06/21/2020 SERVICE TIME: 12:39 PM LOS: 4 days Progress note Referral sent [facility], [facility], [place], [facility] ,and [facility] for PT/OT. Awaiting acceptance. SIGNATURE: PAMELA Shepherd PATIENT NAME: Meryl Ogden DATE: June 21, 2020 TIME: 12:39 PM PAGER/CONTACT #: [phone] progress on 2020-06 PROGRESS HNO ID: [id number] Normal 06-20-2020 [facility] Author: Shelbi Downey [facility] Service: General Surgery Medical Author Type: Resident Center Type: Progress Notes ([id number]) Filed: 06/20/2020 11:39 AM Note Text: Attestation signed by Vidhya Wang at 06/21/2020 10:13 AM I personally saw and examined the patient on 06/20/20. I revi ewed the resident's note. I agree with the resident's assessment and plan unless otherwise noted. Trauma Surgery Progress Note SERVICE DATE: 06/20/2020 Trauma Service Pager: For questions or concerns Mon-Fri 6a-5p please page [phone]. After 5pm and on Weekends and Holidays, please page [phone] if in ICU or [phone] if on RNF. SUBJECTIVE: NAEON, patient articulate [...] (151 lb 0.2 oz) SpO2 96% B CA 18.88 kg/m? O2 Therapy: Room Air IANDO: Date 06/19/20699 - 06/20/2065806/20/20699 - 06/21/20 0659 Shift 9651-8621 8554-6324 9394-3608 24 Hour Total 5711-3126 1781-4865 6612-8697 24 Hour Total INTAKE PO 240 600 840 240 240 PO 240 600 840 240 240 Shift Total 240 600 840 240 240 OUTPUT Urine 350 572 753 0418 500 500 Void (ml) 350 859 849 0109 500 500 Urine Incontinence/Not Saved 1 x 1 x Shift Total 350 841 102 5378 500 500 Weight (kg) 68.5 68.5 68.5 [...] questions or concerns Mon-Fri 6a-5p please page [phone]. After 5pm and on Weekends and Holidays, please page [phone] if in ICU or [phone] if on RNF. mdrd gfr on 2020-06 GFR/1.73 sq M >60 >60mL/min/1.73m2 mL/min/{1.73_m2} Normal [facility] predicted among [facility] non-blacks MDRD (000 00) (S/P/Bld) [Vol rate/Area] Comment: Result Comment: If the patie nt is , multiply the result by 1.210. Performed By: #### GFR #### [place] [id number] hemogram on 2020-06 Erythrocyte distribution 12.7 11.6-14.4 % Normal 06-20 [facility] width (RBC) [Ratio] System (89805) Comment: Performed By: #### PT #### [facility] [address] [address] Hematocrit (Bld) [Volume 36.3 40.1-51.0 % Low 06-20 [facility] fraction] System (00 000) Comment: Performed By: #### PT #### [facility] [address] [address] Hemoglobin (Bld) [Mass/Vol] 12.7 13.7-17.5 g/dL Low [facility] (00 000) Comment: Performed By: #### PT #### [facility] [address] [address] MCH (RBC) [Entitic mass] 34.0 25.7-32.2 pg High 06-20 [facility] System (00 000) Comment: Performed By: #### PT #### [facility] [address] [address] MCHC (RBC) [Mass/Vol] 35.0 32.3-36.5 % Normal 06-20-20 20 [facility] (08594) Comment: Performed By: #### PT #### [facility] [address] [address] MCV (RBC) [Entitic vol] 97.1 83.2-95.6 fl High 2019 [facility] (56703) Comment: Performed By: #### PT #### [facility] [address] [address] Platelet mean volume (Bld) 11.2 8.7-12.[address] [facility] [Entitic vol] System (04967) Comment: Performed By: #### PT #### [facility] [address] [address] Platelets (Bld) [#/Vol] 70 141-365 thou/cmm Low 2019 [facility] (00 000) Comment: Result Comment: Smear scanne d tech agrees with platelet count Performed By: #### PT #### [facility] [address] [place], [place] [address] RBC (Bld) [#/Vol] 3.74 4.63-6.08 mil/cmm Low 06-20-2020 [facility] [place] [facility] (58565) Comment: Performed By: #### PT #### [facility] [address] [place], [place] [address] RDW SD 44.6 36.1-45.8 fl Normal 06-20-2020 [facility] (96707) Comment: Performed By: #### PT #### [facility] [address] [place], [place] [address] WBC (Bld) [#/Vol] 4.78 4.23-9.07 thou/cmm Normal 06-20-2020 [facility] [employer] [facility] (00 000) Comment: Performed By: #### PT #### [facility] [address] [place] [id number] basic metabolic panel on 2020-06-20 Anion gap [Moles/Vol] 11 9-18 mmol/L Normal 06-20-20 20 [facility] (03445) Comment: Performed By: #### CMP #### [facility] [address] [place], [place] [address] Calcium [Mass/Vol] 9.7 8.5-10.2 mg/dL Normal 06-20-2020 [facility] (32187) Comment: Performed By: #### CMP #### [facility] [address] [place], [place] [address] Chloride [Moles/Vol] 98 97-105 mmol/L Normal 0 [facility] (69374) Comment: Performed By: #### CMP #### [facility] [address] [place], [place] [address] CO2 Blood 26 22-30 mmol/L Normal 06-20-2020 [facility] (61065) Comment: Performed By: #### CMP #### [facility] [address] [id number] Creatinine [Mass/Vol] 0.54 0.73-1.22 mg/dL Low 06-20-20 20 [facility] (40503) Comment: Performed By: #### CMP #### [facility] [address] [place], [place] [address] Glucose [Mass/Vol] 112 74-99 mg/dL High 06-20-2020 [facility] (77491) Comment: Result Comment: The [employer] Diabetes Association (ADA) provides guidance for cutoff [...] Standards of Medical Care in Diabetes 2016; [employer] Diabetes Association. Diabetes Care. 2016;39(Suppl 1). Performed By: #### CMP #### [facility] [address] [place], [place] [address] Potassium [Moles/Vol] 3.9 3.7-5.1 mmol/L Normal 06-20-20 [facility] (00 000) Comment: Performed By: #### CMP #### [facility] [address] [place], [place] [address] Sodium [Moles/Vol] 135 136-144 mmol/L Low 06-20-2020 [facility] (60261) Comment: Performed By: #### CMP #### [facility] [address] [place], [place] [address] Urea nitrogen [Mass/Vol] 12 9-24 mg/dL Normal 06-20 [facility] (78686) Comment: Performed By: #### CMP #### [facility] [address] [place], [place] [address] therapy nt on 06-19 THERAPY NT HNO ID: [id number] Normal 06-19-2020 [facility] Author: Eva StephensonPt) [facility] Service: Physical Therapy Medical Author Type: Physical Therapist Center Type: Therapy (PT/OT/Speech/Resp) (09400) Filed: 06/19/2020 2:35 PM Note Text: Physical Therapy Treatment SERVICE DATE: 06/19/2020 SERVICE TIME: 1359 to 1419 ROOM: [place] [address] Recommended Discharge Disposition: Acute Rehab Recommended Discharge [...] (generalized);Unsteadiness on feet Interventions Provided: Therapeutic Activity (37565) Therapeutic Activity (27346) Treatment Minutes: 20 1 unit Skilled Intervention(s): [...] minutes) Please see discipline specific clinical documentation [facility] for complete details for this therapy evaluation/treatment. SIGNATURE: Eva Patel PT PATIENT NAME: Meryl Ogden DATE: June 19, 2020 TIME: 2:27 PM progress on 2020-06 PROGRESS HNO ID: [id number] Normal 06-19-2020 [facility] Author: Joey Bearden General Service: General Surgery Medical Author Type: Resident Center Type: Progress Notes (88924) Filed: 06/19/2020 6:50 AM Note Text: Attestation [...] questions or concerns Mon-Mon 6a-5p please page [phone]. After 5pm and on Weekends and Holidays, please page [phone] if in ICU or [phone] if on RNF. SUBJECTIVE: Overnight the patient [...] he was in a rock room in [place]. He states he did not know who he was he stat ed today was 1973. 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 While pointing to the TV he said [...] 0659 06/19/20 07 - 06/20/20 0659 Shift 3001-5587 4392-9577 2482-7499 24 Hour Total 1847-7591 6158-8143 9158-7233 24 Hour Total INTAKE PO 600 240 40 880 PO 600 240 40 880 Shift Total 600 240 40 880 OUTPUT Urine 900 255 102 9433 Void (ml) 900 065 189 6765 Urine Incontinence/Not Saved 1 x 1 x Shift Total 900 967 026 9875 Weight (kg) 68.5 68.5 68.5 68.5 68.5 [...] questions or concerns Mon-Mon 6a-5p please page [phone]. After 5pm and on Weekends and Holidays, please page [phone] if in ICU or [phone] if on RNF. plan of care on PLAN OF CARE HNO ID: [id number] Nakina 06-19-20 [facility] Author: Joey Bearden [place] ([id number]) Service: General Surgery Author Type: Resident Type: Plan of Care Filed: 06/18/2020 10:40 PM Note Text: S: Was paged by nurse that patient was getting dressed and w as planning to leave AMA. Patient was confused and alerted. He had a CIWA s core of 16. He was SEYW2p8. Patient had pulled out 2 IVs. O: BP 153/103 Pulse 65 Temp 37.2 ?C (99 ?F) (Oral) Res p 18 Ht 190.5 cm (6' 3) Wt 68.5 kg (151 lb 0.2 oz) SpO2 99% B CA 18.88 kg/m? Patient confused, pacing around the room. Patient visibly sh aking. Patient was seeing thing in his room A/P: Ativan 2mg given by RN. Able to redirect the patient to back to bed. Will monitor the patient closely. Low threshold for ICU admi tJohn Bearden DO PGY-1 nursing prog on NURSING HNO ID: [id number] Normal 06-19-2020 [facility] Author: Gracie Foster) MANDY Dolan General Service: ? Medical Author Type: Registered Nurse Center Type: Nursing Progress Note (93366) Filed: 06/19/2020 3:27 PM Note Text: Nursing Progress Note Patient Name: Meryl Ogden Patient Location: [id number] RN removed restraints for patient to feed [...] by: Gracie Dolan RN NURSING HNO ID: [id number] Normal 06-19-2020 [facility] Author: Gracie (Rn) MANDY Dolan General Service: ? Medical Author Type: Registered Nurse Center Type: Nursing Progress Note (52505) Filed: 06/19/2020 1:45 PM Note Text: Nursing Progress: Topic: RESTRAINT NON-VIOLENT PATIENT NAME: Meryl Ogden PATIENT LOCATION: [address]/[id number]-* The patient demonstrates Confusion, Lack of Understanding/Ab [...] Low/Locked P osition, Call Light Within Reach, Central Supply Technician/Sitter, Diversion Activities, Gauze Wrap/Sleeve IV Site, IV/Feeding [...] AM Gracie Dolan RN NURSING HNO ID: [id number] Normal 06-19-2020 [facility] Author: Senait Brandon RN General Service: Nursing Med [facility] Author Type: Registered Nurse Center Type: Nursing Progress Note (50491) Filed: 06/18/2020 11:57 PM Note Text: Nursing Progress: Topic: RESTRAINT NON-VIOLENT PATIENT NAME: Meryl Ogden PATIENT LOCATION: [place] [address] [address] The patient demonstrates Confusion, Lack of Understanding/Ab [...] Low/Locked P osition, Call Light Within Reach, Central Supply Technician/Sitter, Diversion Activities, Gauze Wrap/Sleeve IV Site, IV/Feeding [...] PM Senait Brandon RN NURSING HNO ID: [id number] Normal 06-19-2020 [facility] Author: Senait Brandon RN General Service: Nursing Med [facility] Author Type: Registered Nurse Center Type: Nursing Progress Note (75991) Filed: 06/19/2020 1:28 AM Note Text: Nursing Progress Note Patient Name: Meryl Ogden Patient Location: [facility]52A-5212/[id number] Daily Note: Patient attempting to get out [...] note was completed by: Senait Brandon, RN 1140: Care Support Representative, Anabelle, up to see patient. Multiple attempts [...] Magnesium [Mass/Vol] 1.7 1.7-2.3 mg/dL Normal 0 [facility] (72533) Comment: Performed By: #### CMP #### [facility] [address] [place] [address] hemogram on 2020-06 Erythrocyte distribution 13.1 11.6-14.4 % Normal 06-19 [facility] width (RBC) [Ratio] System (10612) Comment: Performed By: #### CMP #### [facility] [address] [place] [address] Hematocrit (Bld) [Volume 36.2 40.1-51.0 % Low 06-19 [facility]] System (00 000) Comment: Performed By: #### CMP #### [place] [address] Hemoglobin (Bld) [Mass/Vol] 12.6 13.7-17.5 g/dL Low [facility] (00 000) Comment: Performed By: #### CMP #### [facility] [address] [place] [address] MCH (RBC) [Entitic mass] 34.1 25.7-32.2 pg High 06-19 [facility] (00 000) Comment: Performed By: #### CMP #### [facility] [address] [place] [address] MCHC (RBC) [Mass/Vol] 34.8 32.3-36.5 % Normal 06-19-20 20 [facility] (92120) Comment: Performed By: #### CMP #### [facility] [address] [place] [address] MCV (RBC) [Entitic vol] 98.1 83.2-95.6 fl High 2019 [facility] (83665) Comment: Performed By: #### CMP #### [place] [address] Platelet mean volume (Bld) 12.0 8.7-12.[address] [facility] [Entitic vol] System (12908) Comment: Performed By: #### CMP #### [facility] [address] [place], [place] [address] Platelets (Bld) [#/Vol] 56 141-365 thou/cmm Low 2019 [facility] (00 000) Comment: Result Comment: Smear jovanni melendez tech agrees with platelet count Performed By: #### CMP #### [facility] [address] [place], [place] [address] RBC (Bld) [#/Vol] 3.69 4.63-6.08 mil/cmm Low 06-19-2020 A [facility] (31566) Comment: Performed By: #### CMP #### [facility] [address] [place], [place] [address] RDW SD 46.2 36.1-45.8 fl High 06-19-2020 [facility] (50465) Comment: Performed By: #### CMP #### [facility] [address] [place], [place] [address] WBC (Bld) [#/Vol] 5.07 4.23-9.07 thou/cmm Normal 06-19-2020 [facility] [place] [facility] (00 000) Comment: Performed By: #### CMP #### [place] [id number] case managem on CASE MANAGEM HNO ID: [id number] Normal 06-19-20 20 [facility] Author: Maggy Dhaliwal (Sw) General Service: ? Medical Author Type: [facility] Type: Care Mgt Progress Note (05550) Filed: 06/19/2020 12:28 PM Note Text: CARE MANAGEMENT PROGRESS NOTE SERVICE DATE: 06/19/2020 SERVICE TIME: 12:09 PM LOS: 2 days Needs Prior to Discharge: Accepting Facility;Precertificatio n;Discharge Transportation;Bed Availability;To Be Determined Received call from Ingrid at [facility] who reports the medic al director has denied pt's acceptance due to frequent [place] ED visits for alcohol intoxication and falls/head injuries. Per Ingrid, the medical dosimetrist does not think he will stay inpatient and/or follow-up or comply with his care appropriately. Spoke with pt's Mother Maury Ogden [phone] who is pt' s NOK. Discussed AR vs. SNF and pt's ambivalence about placement. S ent Maury a choice list for SNF so she can review choices and assist pt once his mental status improves. Maury reports she was attempting to get in touch with pt's disability construction ironworker but pt could not remember the name and she has been u nsuccessful in cold searching. Plan: Await improvement in mental status for dispo planning with pt. Anticipate SNF placement. SIGNATURE: WILLIAM Quiroga PATIENT NAME: Meryl Ogden DATE: June 19, 2020 TIME: 12:09 PM PAGER/CONTACT #: [phone] CASE MANAGEM HNO ID: [id number] Normal 06-19-20 [facility] Author: Maggy Dhaliwal (Sw) General Service: ? Medical Author Type: [facility] Type: Care Mgt Progress Note ([id number]) Filed: 06/19/2020 9:35 AM Note Text: CARE [...] or Monday. Plan at this time is [place] if pt still agreeable once m ental status clears and withdrawal symptoms improve. SIGNATURE: WILLIAM Quiroga PATIENT NAME: Meryl Ogden DATE: June 19, 2020 TIME: 9:29 AM PAGER/CONTACT #: [phone] basic metabolic panel on 2020-06-19 Anion gap [Moles/Vol] 11 9-18 mmol/L Normal 06-19-20 20 [facility] (24404) Comment: Performed By: #### CMP #### [place] [address] Calcium [Mass/Vol] 9.2 8.5-10.2 mg/dL Normal 06-19-2020 [facility] (20532) Comment: Performed By: #### CMP #### [facility] [address] [place], [place] [address] Chloride [Moles/Vol] 101 97-105 mmol/L Normal 0 [facility] (04235) Comment: Performed By: #### CMP #### [facility] [address] [place], [place] [address] CO2 Blood 25 22-30 mmol/L Normal 06-19-2020 [facility] (25559) Comment: Performed By: #### CMP #### [facility] [address] [place], [place] [address] Creatinine [Mass/Vol] 0.52 0.73-1.22 mg/dL Low 06-19-20 20 [facility] (23839) Comment: Performed By: #### CMP #### [facility] [address] [place], [place] [address] Glucose [Mass/Vol] 106 74-99 mg/dL High 06-19-2020 [facility] (72733) Comment: Result Comment: The [employer] Diabetes Association (ADA) provides guidance for cutoff [...] Standards of Medical Care in Diabetes 2016; [employer] Diabetes Association. Diabetes Care. 2016;39(Suppl 1). Performed By: #### CMP #### [facility] [address] [place], [place] [address] Potassium [Moles/Vol] see below 3.7-5.1 Normal 06-19-20 20 [facility] (00 000) Comment: Result Comment: Unable to as say. Specimen Hemolyzed Performed By: #### CMP #### [facility] [address] [place], [place] [address] Sodium [Moles/Vol] 137 136-144 mmol/L Normal 06-19-2020 [facility] (31512) Comment: Performed By: #### CMP #### [facility] [address] [place], [place] [address] Urea nitrogen [Mass/Vol] 8 9-24 mg/dL Low 06-19 [facility] (25147) Comment: Performed By: #### CMP #### [facility] [address] [place], [place] [address] therapy nt on 06-18 THERAPY NT HNO ID: [id number] Normal 06-18-2020 [facility] Author: Corbin (Ccc-Well Drill Operator Helper Cable Tool) Mumtaz CCC/[facility] Service: Speech/Swallow (80599) Author Type: Speech Language Pathologist Type: Therapy (PT/OT/Speech/Resp) Filed: 06/18/2020 12:21 PM Note Text: Speech Therapy Speech Evaluation SERVICE DATE: 06/18/2020 SERVICE TIME: 1135 to 1205 ROOM: [place] [address] Nursing Recommendations: Reinforce use of cognitive-communication strategies [...] symbolic dysfunctions Interventions Provided: Speech Language Eval (71985) $ Speech Language Eval (52365) Billed Units: 1 unit Total Treatment Time (minutes): 30 SUBJECTIVE: Current Hospital Course: Chart reviewed; Diagnosis: Subdural hematoma Reason for admit: Patient presents with: Trauma Evaulation: Sent from [place] for subdural hematoma a nd trauma consult. Patient was found on the ground on his porch with n o recolection of how he got there. He is a daily drinker and was given ati van prior to arrival. No complaints at this time. Meryl is a 49 year old male who was brought her from [place] ED for a subdural hematoma. He was [...] 0 Please see discipline specific clinical documentation [facility] for complete details for this therapy evaluation/treatment. SIGNATURE: Corbin Pandya [facility]-SOUND M[facility]ER PATIENT NAME: Meryl bain DATE: June 18, 2020 TIME: 12:16 PM staph aureus pcr on 2020-06-18 MRSA PCR SEE BELOW Normal 06-18-2020 [facility] (85933) Comment: Result Comment: Negative for MRSA by PCR. Performed By: #### CMP #### [address] [address] S aureus Spec Source NASAL Normal 0 [facility] (26955) Comment: Performed By: #### CMP #### [address] [address] Staph aureus PCR SEE BELOW Abnormal 06-18-2020 [facility] (83774) Comment: Result Comment: Positive for Staphylococcus aureus by PCR.(*) Performing Laboratory: [facility] [address] [place] [address] Performed By: #### CMP #### [address] [address] progress on 2020-06 PROGRESS HNO ID: [id number] Normal 06-18-2020 [facility] Author: Shashank Hernandez [facility] Service: General Surgery ([id number]) Author Type: Physician Type: Progress Notes Filed: 06/18/2020 5:05 PM Note Text: Trauma Surgery Progress Note SERVICE DATE: 06/18/2020 Trauma Service Pager: For questions or concerns Mon-Fri 6a-5p please page [phone]. After 5pm and on Weekends and Holidays, please page [phone] if in ICU or [phone] if on RNF. SUBJECTIVE: No acute events. [...] (151 lb 0.2 oz) SpO2 97% B CA 18.88 kg/m? O2 Therapy: Room Air IANDO: Date 06/17/20699 - 06/18/2065806/18/20 07 - 06/19/20 0659 Shift 4485-7547 0287-7919 3051-6429 24 Hour Total 4580-1865 7631-2218 6329-6588 24 Hour Total INTAKE PO 360 240 600 PO 360 240 600 Shift Total 360 240 600 OUTPUT Urine 850 195 699 3765 Void (ml) 099 451 0011 Output ([REMOVED] External Collection Device 06/17/20 0300 06/17/20 1330) 850 850 Emesis 100 100 Emesis (ml) 100 100 Shift Total 950 226 007 0000 Weight (kg) 68 68 68.5 68.5 68.5 [...] care on PLAN OF CARE HNO ID: [id number] Normal 06-18-20 [facility] Author: Simran Lyons) Katharine [facility] Service: Neurosurgery ([id number]) Author Type: Physician Telescope Operator Type: Plan of Care Filed: 06/18/2020 5:04 PM Note Text: Neurosurgery 06/18/2020 Imaging reviewed with Hany. CT stable. Follow up appointm ent requested in [address] Leach. Will SO. Simran Alcantar PA-C Pager: [phone] nursing prog on NURSING PROG HNO ID: [id number] Nakina 06-18-20 [facility] Author: Jane StephensonRn) [facility] (53193) Service: Orthopaedic Surgery Author Type: Registered Nurse Type: Nursing Progress Note Filed: 06/18/2020 7:45 PM Note Text: Patient now with CIWA score of 16. Ativan 1 mg PO given per orders. Pt is confused, [facility]. Reoriented to [facility] [place] and time. Pt [...] thought you wer e calling me. Nursing packing room supervisor notified that patient may need a sitter f or the warehouse shift supervisor. hemogram on 2020-06 Erythrocyte distribution 12.6 11.6-14.4 % Normal 06-18 [facility] width (RBC) [Ratio] System (42575) Comment: Performed By: #### CMP #### [facility] [address] [place], [place] [address] Hematocrit (Bld) [Volume 35.2 40.1-51.0 % Low 06-18 [facility] fraction] System (00 000) Comment: Performed By: #### CMP #### [facility] [address] [place] [id number] Hemoglobin (Bld) [Mass/Vol] 12.1 13.7-17.5 g/dL Low [facility] System (00 000) Comment: Performed By: #### CMP #### [facility] [address] [place] [id number] MCH (RBC) [Entitic mass] 33.0 25.7-32.2 pg High 06-18 [facility] (00 000) Comment: Performed By: #### CMP #### [facility] [address] [place], [place] [address] MCHC (RBC) [Mass/Vol] 34.4 32.3-36.5 % Normal 06-18-[address] [facility] (00867) Comment: Performed By: #### CMP #### [facility] [address] [place], [place] [address] MCV (RBC) [Entitic vol] 95.9 83.2-95.[address] [facility] (15121) Comment: Performed By: #### CMP #### [facility] [address] [place], [place] [address] Platelet mean volume (Bld) 10.8 8.7-12.[address] [facility] [Entitic vol] System (76790) Comment: Performed By: #### CMP #### [facility] [address] [place], [place] [address] Platelets (Bld) [#/Vol] 51 141-365 thou/cmm Low 2019 [facility] (00 000) Comment: Performed By: #### CMP #### [facility] [address] [place], [place] [address] RBC (Bld) [#/Vol] 3.67 4.63-6.08 mil/cmm Low 06-18-2020 [facility] (32669) Comment: Performed By: #### CMP #### [facility] [address] [place], [place] [address] RDW SD 44.4 36.1-45.8 fl Normal 06-18-2020 [facility] (34301) Comment: Performed By: #### CMP #### [facility] [address] [place], [place] [address] WBC (Bld) [#/Vol] 4.67 4.23-9.07 thou/cmm Normal 06-18-2020 [facility] (00 000) Comment: Performed By: #### CMP #### [facility] [address] [place] [id number] case managem on CASE MANAGEM HNO ID: [id number] Nakina 06-18-[address] [place] [address] Author: Maggy Dhaliwal (Sw) [facility] Service: ? ([id number]) Author Type: [facility] Type: Care Mgt Progress Note Filed: 06/18/2020 2:09 PM Note Text: CARE MANAGEMENT PROGRESS NOTE SERVICE DATE: 06/18/2020 SERVICE TIME: 2:07 PM LOS: 1 day [place] of Choice Given: Yes Level of Care Discussed: Inpatient Rehab Facility Financial Disclosure Provided: Yes Provider List: Rehab Facility Provider list within the patient's requested geographic area shared with the patient/family: Yes within: 25 miles of zip code: [address] Quality and resource use metrics shared with the patient azalia t are relevant to the patient's goals of care and treatment preferences:: Y es Metrics: Functional Status;Cognitive Status;Resource Use;Dis charge to Community Discussed AR with pt and facilities in [facility]. Pt agre eable to referral to [facility]. Referral placed. SIGNATURE: WILLIAM Quiroga PATIENT NAME: Meyrl Ogden DATE: June 18, 2020 TIME: 2:07 PM PAGER/CONTACT #: [phone] CASE MANAGEM HNO ID: [id number] Nakina 06-18-20 20 [facility] Author: Maggy Canela) [facility] Service: ? ([id number]) Author Type: [facility] Type: Care Mgt Progress Note Filed: 06/18/2020 [...] Degree and reports having two BA in Austrian and Philosophy Support System: Family: Mom and dad Friend(s) Status (Including History of Combat Experience): No ne Legal History:Patient/Water Pollution Scientist Denies Restoration/Spirituality: Mennonite and not practicing Do Special Considerations/Accommodations Need to be Made? No Are There Practices or Beliefs That May Affect or Influence Care? No, Patient/Water Pollution Scientist Denies Patient Strengths/Protective Factors: Able to Communicate [...] Yes - Do you ever drink an eye-hogshead opener in the morning to relieve shakes? No Offered Patient Resources: Yes DISCHARGE RECOMMENDATIONS: Medical Follow-Up, Relinkage With Previous Provider(s) and A cute Rehab Patient/Water Pollution Scientist Agreeable With Discharge Recommendati ons At This Time? Yes OBSTACLES TO TREATMENT/POST-DISCHARGECHALLENGES: Limited/No Income Multiple Psychosocial Stressors Substance Abuse Transportation Difficulties Met with pt at bedside. Pt was cooperative and pleasant. Pt reports he struggled heavily with drinking starting in 05/2009 as his marriage fell apart. Pt states he is active with a therapi st at [facility] in [place] and plans to continue with this agency [...] scarlett denced by forgetting his is in [place] and where his children live. Pt wa s able to eventually recollect that he and his children live in [place], [place] and he is currently in [place]. 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 He has been relying on his parents to assist with hollie nces and states he has no concerns at this time because he has his pa rents to lean on. Pt declined any financial resources. Pt states he has so me very good friends who live in [place], and two friends John and Mike suero, who are neighbors and found him down recently resulting in this [facility]. Pt states he walks everywhere [...] gap [Moles/Vol] 9 9-18 mmol/L Normal 06-18-20 [facility] (04168) Comment: Performed By: #### CMP #### [facility] [address] [place], [place] [address] Calcium [Mass/Vol] 8.3 8.5-10.2 mg/dL Low 06-18-2020 [facility] (37187) Comment: Performed By: #### CMP #### [facility] [address] [place], [place] [address] Chloride [Moles/Vol] 95 97-105 mmol/L Low 0 [facility] (29462) Comment: Performed By: #### CMP #### [facility] [address] [place], [place] [address] CO2 Blood 30 22-30 mmol/L Normal 06-18-2020 [facility] (76624) Comment: Performed By: #### CMP #### [facility] [address] [place], [place] [address] Creatinine [Mass/Vol] 0.56 0.73-1.22 mg/dL Low 06-18-20 20 [facility] (15736) Comment: Performed By: #### CMP #### [facility] [address] [place], [place] [address] Glucose [Mass/Vol] 110 74-99 mg/dL High 06-18-2020 [facility] (80054) Comment: Result Comment: The [employer] Diabetes Association (ADA) provides guidance for cutoff [...] Standards of Medical Care in Diabetes 2016; [employer] Diabetes [employer]. Diabetes Care. 2016;39(Suppl 1). Performed By: #### CMP #### [facility] [address] [place], [place] [address] Potassium [Moles/Vol] 3.3 3.7-5.1 mmol/L Low 06-18-20 20 [facility] (59383) Comment: Performed By: #### CMP #### [facility] [address] [place], [place] [address] Sodium [Moles/Vol] 134 136-144 mmol/L Low 06-18-2020 [facility] (31436) Comment: Performed By: #### CMP #### [facility] [address] [place], [place] [address] Urea nitrogen [Mass/Vol] 7 9-24 mg/dL Low 06-18 [facility] (60279) Comment: Performed By: #### CMP #### [facility] [address] [place], [place] [address] xr pelvis 1v ap on 2020-06-17 XR PELVIS 1V AP Final Report Normal 06-17-2020 [facility] DATE OF EXAM: Jun 17 2020 2:35AM [facility] AKX [id number] - XR PELVIS 1V AP / (41901) PROCEDURE REASON: Brain trauma Physician Interpretation EXAMINATION: XR PELVIS 1V AP CLINICAL HISTORY: Brain trauma Technique: XR PELVIS 1V AP -- NOT APPLICABLE with 1 views on 1 images Comparison: None RESULT: No acute fracture or osseous lesions are identified. Hip gallo nt spaces are preserved bilaterally. The soft tissue structures are un remarkable. IMPRESSION: No acute findings Manufacturing Supervisor: ZORAN Transcribe Date/Time: Jun 17 2020 3:24A Dictated by : DARREL CHANG MD This examination was interpreted and the report reviewed and electronically signed by: DARREL CHANG MD on Jun 17 2020 3:25AM EST xr chest 1v frontal on 2020-06-17 XR CHEST 1V Final Report Normal 06-17-2020 [facility] FRONTAL DATE OF EXAM: Jun 17 2020 2:35AM [facility]X [id number] - XR CHEST 1V FRONTAL / (07021) PROCEDURE REASON: Brain trauma Physician Interpretation EXAMINATION: CHEST RADIOGRAPH (SINGLE VIEW AP OR PA) CLINICAL HISTORY: Brain trauma MQ: XC1_5 Comparison: Not available RESULT: Lines, tubes, and devices: None. Lungs and pleura: No consolidation. No lung mass. No pleural effusion. Cardiomediastinal silhouette: Normal cardiomediastinal silho uette. Other: . IMPRESSION: No acute radiographic abnormality. Manufacturing Supervisor: ZORAN Transcribe Date/Time: Jun 17 2020 3:30A Dictated by : SHABNAM WEST MD This examination was interpreted and the report reviewed and electronically signed by: SHABNAM WEST MD on Jun 17 2020 3:30AM EST urine drug screen o n 2020-06-17 Urine Alcohol 87 0-11 mg/dL High 06-17-2020 [facility] (55343) Comment: Performed By: #### UDRG3 ### # [facility] [address] [place], [place] [address] Urine Amphetamine NEGATIVE NEGATIVE Normal 06-17-[address] [facility] (19466) Comment: Performed By: #### UDRG3 ### # [address] [address] Urine Barbiturates NEGATIVE NEGATIVE Normal 06-17-2020 [facility] (27478) Comment: Performed By: #### UDRG3 ### # [address] [address] Urine Benzodiazepine NEGATIVE NEGATIVE Normal 0 [facility] (00 000) Comment: Performed By: #### UDRG3 ### # [facility] [address] [place], [place] [address] Urine Cocaine Metab NEGATIVE NEGATIVE Normal 06-17-2020 [facility] (66909) Comment: Performed By: #### UDRG3 ### # [address] [address] Urine Opiates NEGATIVE NEGATIVE Normal 06-17-2020 [facility] (71985) Comment: Performed By: #### UDRG3 ### # [address] [address] Urine Oxycodone NEGATIVE NEGATIVE Normal 06-17-2020 [facility] (67638) Comment: Performed By: #### UDRG3 ### # [address] [address] Urine PCP NEGATIVE NEGATIVE Normal 06-17-2020 [facility] (38063) Comment: Result Comment: Test Cutoff Unit Amphetamines 1000 ng/mL Barbiturates 200 ng/mL Benzodiazepines 200 ng/mL Cannabinoids 50 ng/mL Cocaine 300 ng/mL Opiates 300 ng/mL Oxycodone 100 ng/mL Phencyclidine 25 ng/mL Reference Range: Negative at cutoff threshold Immunoassay screen only. Yard Jockey ss reactivity with other substances can occur [...] the same specimen through the laboratory at ([phone]) if contact ed within 48 hours of initial 1. Substance Abuse and [facility] (2012). Clini [facility]ulo Drug Testing in Primary Care Technical Assistance Publica tion Series 32. Department of Health and Human Services, U [place], p.10. Performed By: #### UDRG3 ### # [place] [address] Urine THC NEGATIVE NEGATIVE Normal 06-17-2020 [facility] (11919) Comment: Performed By: #### UDRG3 ### # [place] [address] type and screen on 2020-06-17 Comment See Below Normal 06-17-2020 [facility] (63213) Comment: Result Comment: Screen &/or Xmatch expires in 3 days at 12 midnight. Redraw patient at that time. Performed By: #### ALCO3 ### # [place] [address] ABO group Nom (Bld) B Normal 06-17-2020 [facility] (02310) Comment: Performed By: #### ALCO3 ### # [place] [address] RH Type Positive Normal 06-17-2020 [facility] (40200) Comment: Performed By: #### ALCO3 ### # [place] [address] therapy nt on 06-17 THERAPY NT HNO ID: [id number] Normal 06-17-2020 [facility] Author: Bailey (Pt) Feliz [facility] Service: Physical Therapy Medical Author Type: Physical Therapist Center Type: Therapy (PT/OT/Speech/Resp) (04537) Filed: 06/17/2020 2:50 PM Note Text: Physical Therapy Evaluation SERVICE DATE: 06/17/2020 SERVICE TIME: 931 to 947 ROOM: [place] [address] Recommended Discharge Disposition: Acute Rehab Recommended Discharge [...] on feet Interventions Provided: Evaluation $ Evaluation-Moderate (85180) Billed Units: 1 unit History and examination [...] minutes) Please see discipline specific clinical documentation [facility] for complete details for this therapy evaluation/treatment. SIGNATURE: Bailey Piper PT PATIENT NAME: Meryl Ogden DATE: June 17, 2020 TIME: 2:48 PM THERAPY NT HNO ID: [id number] Normal 06-17-2020 [facility] Author: Yuly StephensonOt/Kierra Piedra General Service: ? Medical Author Type: Occupational Therapist Center Type: Therapy (PT/OT/Speech/Resp) (63661) Filed: 06/17/2020 10:29 AM Note Text: Occupational Therapy Evaluation SERVICE DATE: 06/17/2020 SERVICE TIME: 914 to 931 ROOM: [place] [address] Recommended Discharge Disposition: Acute Rehab Recommended Discharge [...] of coordination-other Interventions Provided: Evaluation $ Evaluation-Moderate (28716) Billed Units: 1 unit OT Evaluation Moderate [...] 0.5 Please see discipline specific clinical documentation [facility] for complete details for this therapy evaluation/treatment. SIGNATURE: Yuly Piedra OTR/L PATIENT NAME: Meryl Ogden DATE: June 17, 2020 TIME: 10:25 AM rapid, covid 19 on 2020-06-17 Rapid, COVID 19 NEGATIVE Negative Normal 06-17-2020 [facility] (28036) Comment: Result Comment: This test castro s been authorized by the FDA under an Emergency Use Authorization (EUA). Performed By: #### RCOVD ### # [place] [address] protime on INR Coag (PPP) [Relative 1.07 0.90-1.30 {INR} Normal 06-17 [facility] time] System (00 000) Comment: Result Comment: Vitamin K An tagonist (VKA) Therapeutic Range: INR 2 to 3 (Target INR of 2.5) Note: For patients treated w ith VKA drugs, such as warfarin, the [employer] ys[employer] 2012 Guideline recommends a therapeutic INR range of 2 to 3 (target INR of 2.5). This recommendation includes high -risk patients with antiphospholipid syndrome with previous arter ial or venous thromboembolism, current-generation mechanica l or bioprosthetic aortic heart valve replacement. Note: Patients with farm machinery set up mechanic al aortic valve replacement and additional [...] [phone] Performed By: #### ALCO3 ### # [facility] [address] [place], [place] [address] PT Coag (PPP) [Time] 11.1 9.7-13.0 sec Normal 0 [facility] (07843) Comment: Performed By: #### ALCO3 ### # [facility] [address] [place], [place] [address] INR Coag (PPP) [Relative 1.09 0.90-1.30 {INR} Normal 06-17 [facility] time] System (00 000) Comment: Result Comment: Vitamin K An tagonist (VKA) Therapeutic Range: INR 2 to 3 (Target INR of 2.5) Note: For patients treated w ith VKA drugs, such as warfarin, the [employer] Chest Ph ysicians 2012 Guideline recommends a therapeutic INR range of 2 to 3 (target INR of 2.5). This recommendation includes high -risk patients with antiphospholipid syndrome with previous arter ial or venous thromboembolism, current-generation mechanica l or bioprosthetic aortic heart valve replacement. Note: Patients with farm machinery set up mechanic al aortic valve replacement and additional risk factors for thromboembolic events (atrial fibrillation, previous throm boembolism, LV dysfunction, hypercoagulable conditions) or an older generation mechanical AVR (i.e., ball in-Cage) or any mechanical MVR should have a INR therapeutic range of 2 .5 to 3.5 target INR of 3). Samanyatt GH, et al. Chest 2012 ; 141:7S-47S Ada PRICE et al. [facility] 20 ; 70: 252-289 Performed By: #### PT #### [facility] [address] [place], [place] [address] PT Coag (PPP) [Time] 11.3 9.7-13.0 sec Normal 0 [facility] (55681) Comment: Performed By: #### PT #### [facility] [address] [place], [place] [address] progress on 2020-06 PROGRESS HNO ID: [id number] Normal 06-17-2020 [facility] Author: Simran Lyons) [facility] Service: Neurosurgery (77323) Author Type: Physician Telescope Operator Type: Progress Notes Filed: 06/17/2020 3:12 [...] serial CT Brain -Keppra for seizure prophylaxis -[facility] protocol -Pain control -Discussed with Dr. Leach Medication and Non-Pharmacologic VTE Prophylaxis/Anticoagula nts 06/17/20 0145 vte pharmacologic prophylaxis contraindicated (tn,oh) 06/17/20 0145 pneumatic compression stockings (tn,ne) VTE Prophylaxis: VTE prophylaxis appropriate SIGNATURE: Simran Alcantar PA-C PATIENT NAME: Meryl Ogden DATE: June 17, 2020 TIME: 2:59 PM PAGER/CONTACT #: Pager: [phone] PROGRESS HNO ID: [id number] Normal 06-17-2020 [facility] Author: Vidhya Harris [facility] Service: General Surgery ([id number]) Author Type: Physician Type: Progress Notes Filed: [...] (TYLENOL) 975 mg ORAL q 6 H OR N - oxyCODONE IR 5-10 mg tab(s) [...] - 06/17/2065806/17/20 07 - 06/18/20 0659 Shift 1434-1683 8279-5238 9314-6355 24 Hour Total 5163-1908 3278-7974 1647-2326 24 Hour Total INTAKE IV 950 950 [...] chronic alcohol abuse who pr esented to [facility] with a subdural hematoma after a fall [...] questions or concerns Mon-Mon 6a-5p please page [phone]. After 5pm and on Weekends and Holidays, please page [phone]. SIGNATURE: Melissa Begum DO PATIENT NAME: Meryl [...] Is Patient Clinically Ready to Transfer to [facility] or SDU?: Yes, transfer to SDU or [facility] today Discharge Planning: To be determined SIGNATURE: Vidhya Wang MD PATIENT NAME: Meryl Ogden DATE: June 17, 2020 TIME: 10:12 AM PROGRESS HNO ID: [id number] Normal 06-17-2020 [facility] Author: [facility] Service: General Surgery ([id number]) Author Type: Physician Type: Progress Notes Filed: 07/13/2020 8:17 AM Note Text: Trauma Surgery Progress Note SERVICE DATE: 06/17/2020 Trauma Service Pager: For questions or concerns Mon-Fri 6a-5p please page [phone]. After 5pm and on Weekends and Holidays, please page [phone] if in ICU or [phone] if on RNF. SUBJECTIVE: No acute events. [...] 0659 06/17/20 07 - 06/18/20 0659 Shift 0990-8887 1747-1505 8521-0630 24 Hour Total 0433-9265 4037-0400 6563-0286 24 Hour Total INTAKE IV 950 950 [...] (TYLENOL) 975 mg ORAL q 6 H OR N - oxyCODONE IR 5-10 mg tab(s) [...] questions or concerns Mon-Fri 6a-5p please page [phone]. After 5pm and on Weekends and Holidays, [...] Phosphate [Mass/Vol] 2.9 2.7-4.8 mg/dL Normal 0 [facility] (29767) Comment: Performed By: #### ALCO3 ### # [place] [address] pheresed platelets on 2020-06-17 Pheresed Plts unit 1 Done Normal 0 [facility] (69124) Comment: Performed By: #### ALCO3 ### # [facility] [address] [place], [place] [address] magnesium blood on 2020-06-17 Magnesium [Mass/Vol] 1.9 1.7-2.3 mg/dL Normal 0 [facility] (66259) Comment: Performed By: #### ALCO3 ### # [facility] [address] [place], [place] [address] Magnesium [Mass/Vol] 1.2 1.7-2.3 mg/dL Low 0 [facility] (02233) Comment: Performed By: #### MAG #### [facility] [place], [place] [address] lipase blood on Lipase Blood 37 16-61 U/L Normal 06-17-2020 [facility] (35204) Comment: Performed By: #### LIP #### [facility] [address] [place], [place] [address] history physical on 2020-06-17 HISTORY PHYSICAL HNO ID: [id number] Normal [facility] Service: General [facility] ([id number]) Author Type: Resident Type: HANDP Filed: 06/17/2020 8:48 AM Note Text: TRAUMA SURGERY HANDP [facility] ARRIVAL DATE: 06/16/2020 ARRIVAL TIME: 2129 CATEGORY: Level 3 INJURY DATE: 06/16/2020 INJURY TIME: 1600 Subjective 49 year old male presents to [facility] as a transfer from [place] . He apparently fell at home on [...] in the last 72 hours. Invalid input(s): [facility] Assessment/Plan There are no active hospital [...] questions or concerns Mon-Fri 6a-5p please page [phone]. After 5pm and on Weekends and Holidays, please page [phone] if in ICU or [phone] if on RNF. hemogram/diff on 28-06-09 Abs Immature Grans 0.02 0.00-0.05 thou/cmm Normal 06-17-2020 [facility] (00 000) Comment: Performed By: #### CBCD1 ### # [facility] [place], [place] [address] Abs Neut (ANC) 2.94 1.78-5.38 thou/cmm Normal 06-17-2020 [facility] (08922) Comment: Performed By: #### CBCD1 ### # [facility] [place] [address] Abs. Baso 0.06 0.01-0.08 thou/cmm Normal 06-17-2020 [facility] (06021) Comment: Performed By: #### CBCD1 ### # [address] [address] Abs. Perry 0.47 0.30-0.82 thou/cmm Normal 06-17-2020 [facility] (75051) Comment: Performed By: #### CBCD1 ### # [facility] [address] [place], [place] [address] Basophils/100 WBC (Bld) 1.3 % Normal 2019 [facility] (47162) Comment: Performed By: #### CBCD1 ### # [facility] [address] [place], [place] [address] Eosinophils (Bld) 0.07 0.04-0.54 thou/cmm Normal 06-17-2020 [facility] [#/Vol] [facility] (96413) Comment: Performed By: #### CBCD1 ### # [address] [address] Eosinophils/100 WBC (Bld) 1.5 % Normal [facility] (04830) Comment: Performed By: #### CBCD1 ### # [facility] [address] [place], [place] [address] Erythrocyte distribution 13.2 11.6-14.4 % Normal 06-17 [facility] width (RBC) [Ratio] System (46119) Comment: Performed By: #### CBCD1 ### # [facility] [address] [place], [place] [address] Hematocrit (Bld) [Volume 36.0 40.1-51.0 % Low 06-17 [facility] fraction] System (00 000) Comment: Performed By: #### CBCD1 ### # [facility] [address] [place], [place] [address] Hemoglobin (Bld) [Mass/Vol] 12.3 13.7-17.5 g/dL Low [facility] (00 000) Comment: Performed By: #### CBCD1 ### # [facility] [address] [place], [place] [address] Immature Grans 0.40 % Normal 06-17-2020 [facility] (82308) Comment: Performed By: #### CBCD1 ### # [facility] [address] [place], [place] [address] Lymphocytes (Bld) 1.10 0.84-2.85 thou/cmm Normal 06-17-2020 [facility] [place] [#/Vol] [facility] (77925) Comment: Performed By: #### CBCD1 ### # [facility] [address] [place], [place] [address] Lymphocytes/100 WBC (Bld) 23.6 % Normal [facility] (62175) Comment: Performed By: #### CBCD1 ### # [facility] [address] [place], [place] [address] MCH (RBC) [Entitic mass] 33.1 25.7-32.2 pg High 06-17 [facility] (00 000) Comment: Performed By: #### CBCD1 ### # [facility] [address] [place], [place] [address] MCHC (RBC) [Mass/Vol] 34.2 32.3-36.5 % Normal 06-17-20 20 [facility] (95432) Comment: Performed By: #### CBCD1 ### # [facility] [address] [place], [place] [address] MCV (RBC) [Entitic vol] 96.8 83.2-95.6 fl High 2019 [facility] (16553) Comment: Performed By: #### CBCD1 ### # [facility] [address] [place], [place] [address] Monocytes/100 WBC (Bld) 10.1 % Normal 2019 [facility] (27696) Comment: Performed By: #### CBCD1 ### # [facility] [address] [place], [place] [address] Platelet mean volume (Bld) 11.1 8.7-12.[address] [facility] [Entitic vol] System (69169) Comment: Performed By: #### CBCD1 ### # [facility] [address] [place], [place] [address] Platelets (Bld) 36 141-365 thou/cmm Critically low 0 [facility] [#/Vol] [facility] (75311) Comment: Performed By: #### CBCD1 ### # [facility] [address] [place], [place] [address] RBC (Bld) [#/Vol] 3.72 4.63-6.08 mil/cmm Low 06-17-[address] [facility] (39693) Comment: Performed By: #### CBCD1 ### # [facility] [address] [place], [place] [address] RDW SD 47.0 36.1-45.8 fl High 06-17-2020 [facility] (38518) Comment: Performed By: #### CBCD1 ### # [facility] [address] [place], [place] [address] Seg Neutrophil 63.1 % Normal 06-17-2020 [facility] (95161) Comment: Performed By: #### CBCD1 ### # [facility] [address] [place], [place] [address] WBC (Bld) [#/Vol] 4.66 4.23-9.07 thou/cmm Normal 06-17-[address] [facility] ( 000) Comment: Performed By: #### CBCD1 ### # [facility] [address] [place], [place] [address] hemogram on 2020-06 Erythrocyte distribution 12.9 11.6-14.4 % Normal 06-17 [facility] width (RBC) [Ratio] System (11526) Comment: Performed By: #### CMP #### [facility] [address] [place] [address] Hematocrit (Bld) [Volume 35.5 40.1-51.0 % Low 06-17 [place] [facility] fraction] System (00 000) Comment: Performed By: #### CMP #### [facility] [address] [place] [address] Hemoglobin (Bld) [Mass/Vol] 12.2 13.7-17.5 g/dL Low [facility] ( 000) Comment: Performed By: #### CMP #### [facility] [address] [place] [address] MCH (RBC) [Entitic mass] 33.2 25.7-32.2 pg High 06-17 [facility] (00 000) Comment: Performed By: #### CMP #### [facility] [address] [place] [address] MCHC (RBC) [Mass/Vol] 34.4 32.3-36.5 % Normal 06-17-[address] [facility] (92663) Comment: Performed By: #### CMP #### [facility] [address] [place] [address] MCV (RBC) [Entitic vol] 96.7 83.2-95.6 fl High 2019 [facility] (49346) Comment: Performed By: #### CMP #### [facility] [address] [place] [address] Platelet mean volume (Bld) 11.1 8.7-12.0 fl Normal [facility] [Entitic vol] System (31371) Comment: Performed By: #### CMP #### [facility] [address] [place] [address] Platelets (Bld) [#/Vol] 58 141-365 thou/cmm Low 2019 [facility] (00 000) Comment: Result Comment: Smear scanne d tech agrees with platelet count Performed By: #### CMP #### [facility] [address] [place] [address] RBC (Bld) [#/Vol] 3.67 4.63-6.08 mil/cmm Low 06-17-[address] [facility] (33554) Comment: Performed By: #### CMP #### [place] [address] RDW SD 45.6 36.1-45.8 fl Normal 06-17-2020 [place] [facility] (40386) Comment: Performed By: #### CMP #### [place] [address] WBC (Bld) [#/Vol] 4.45 4.23-9.07 thou/cmm Normal 06-17-[address] [facility] (00 000) Comment: Performed By: #### CMP #### [place] [address] Erythrocyte distribution 13.0 11.6-14.4 % Normal 06-17 [facility] (RBC) [Ratio] System (24950) Comment: Performed By: #### ALCO3 ### # [place] [address] Hematocrit (Bld) [Volume 34.3 40.1-51.0 % Low 06-17 [facility] fraction] System (00 000) Comment: Performed By: #### ALCO3 ### # [place] [address] Hemoglobin (Bld) [Mass/Vol] 11.9 13.7-17.5 g/dL Low [facility] (00 000) Comment: Performed By: #### ALCO3 ### # [address] [place], [place] [address] MCH (RBC) [Entitic mass] 33.6 25.7-32.2 pg High 06-17 [facility] (00 000) Comment: Performed By: #### ALCO3 ### # [facility] [address] [place], [place] [address] MCHC (RBC) [Mass/Vol] 34.7 32.3-36.5 % Normal 06-17-20 20 [facility] (84935) Comment: Performed By: #### ALCO3 ### # [facility] [address] [place] [id number] MCV (RBC) [Entitic vol] 96.9 83.2-95.6 fl High 2019 [facility] (95202) Comment: Performed By: #### ALCO3 ### # [facility] [address] [place] [address] Platelet mean volume (Bld) 11.2 8.7-12.[address] [facility] [Entitic vol] System (17294) Comment: Performed By: #### ALCO3 ### # [facility] [address] [place] [id number] Platelets (Bld) 31 141-365 thou/cmm Critically low 0 [facility] [#/Vol] [facility] (54003) Comment: Result Comment: Repeated AND verified Performed By: #### ALCO3 ### # [facility] [address] [place] [id number] RBC (Bld) [#/Vol] 3.54 4.63-6.08 mil/cmm Low 06-17-2020 [facility] (72909) Comment: Performed By: #### ALCO3 ### # [facility] [address] [place] [id number] RDW SD 46.3 36.1-45.8 fl High 06-17-2020 [facility] (10480) Comment: Performed By: #### ALCO3 ### # [facility] [address] [place] [id number] WBC (Bld) [#/Vol] 4.96 4.23-9.07 thou/cmm Normal 06-17-2020 [facility] (00 000) Comment: Performed By: #### ALCO3 ### # [facility] [address] [place], [place] [address] ed prov note on ED PROV NOTE HNO ID: [id number] Normal 06-17-20 [facility] Author: Harini Nolen [facility] Service: Emergency Medicine ([id number]) Author Type: Physician Type: ED Provider Notes Filed: 06/17/2020 12:06 AM Note Text: I performed a history and physical examination of the patien t and discussed the management with the resident. I reviewed the griffin daley's note and agree with the documented findings and plan of care. The patient is a 49-year-old male sent to the emergency depa rtment as a transfer from [place] for trauma evaluation found to have ac [place] on chronic subdural hematoma. The patient has a known history of alcoho l abuse. He reports that he drinks at least a sixpack of beer daily. He recalls being on his porch waiting for a friend. He then was found on the ground by his friend acting altered. The patient does not recall feeling i ll before the episode. He was seen in [facility] where he had labora tory studies [...] 06/17/20 0006 ED PROV NOTE HNO ID: [id number] Normal 06-17-20 [facility] Author: Harini Nolen [facility] Service: Emergency Medicine ([id number]) Author Type: Physician Type: ED Provider Notes Filed: 06/17/2020 12:30 AM Note Text: ED Provider Note Patient Name: Meryl Ogden SERVICE DATE: 06/16/20 History Patient presents with: Trauma Evaulation: Sent from [place] for subdural hematoma a nd trauma consult. Patient was found on the ground on his porch with n o recolection of how he got there. He is a daily drinker and was given ati van prior to arrival. No complaints at this time. SHAMIR Haji is a 49 year old male who was brought her from [place] ED for a subdural hematoma. He was [...] male who presented to the ED from [place] for a subdural hematoma following and unwitnessed but suspec julieth lopez. Initial workup/management includes the following: Labs: CBC, CMP, GFR, lipase, Mg, ETOH level, Urine tox, PT/I NR, COVID Meds: ativan, Zofran, fentanyl Imaging: CT brain, CT neck, CXR done at [place] ED EKG: Normal At this time, the decision was made to admit the patient to the ICU for further management. I discussed this with the patient, who w as agreeable to the plan. The patient was admitted to Dr. Wang in stabl e condition. SIGNATURE: Willow Daugherty (Res) MD Kwan Resident 06/16/20 4329 I performed a history and physical examination of the patien t and discussed the management with the resident. I reviewed the r oscart's note and agree with the documented findings and plan of care. Harini Nolen DO 06/17/20 0030 ed note on ED NOTE HNO ID: [id number] Normal 06-17-2020 [facility] Author: Kwasi (Rn) MANDY [place] ([id number]) Service: Emergency Medicine Author Type: Registered Nurse Type: ED Notes Filed: 06/17/2020 12:16 AM Note Text: Patient swabbed for COVID and sent to lab ct brain wo ivcon o n 2020-06-17 CT BRAIN WO IVCON Final Report Normal 0 [facility] DATE OF EXAM: Jun 17 2020 4:03PM [facility] 0504 - CT BRAIN WO IVCON / ([id number]) PROCEDURE REASON: Intracranial hemorrhage Physician Interpretation EXAMINATION: [...] and imaged soft tissues are un remarkable. Co Director (topogram) images: No additional findings. IMPRESSION: Unchanged acute on chronic extra-axial hemorrhages along rig ht cerebral convexity, with minimal mass effect on right frontal lobe. N o evidence of midline shift. Manufacturing Supervisor: ZORAN Transcribe Date/Time: Jun 18 2020 7:24A Dictated by : CARLOS PELAEZ MD This examination was interpreted and the report reviewed and electronically signed by: CARLOS PELAEZ MD on Jun 18 2020 7:31AM EST CT BRAIN WO IVCON Final Report Normal 0 [facility] DATE OF EXAM: Jun 17 2020 5:07AM [facility] 0504 - CT BRAIN WO IVCON / ([id number]) PROCEDURE REASON: Head trauma, headache Physician Interpretation [...] and imaged soft tissues are un remarkable. Co Director (topogram) images: No additional findings. IMPRESSION: Unchanged size of acute on chronic extra-axial hemorrhage al sandy right cerebral convexity measuring 8 mm in thickness. Slightly inc reased dependent hyperdense component near vertex is likely redistr ibution of acute hemorrhage. No CT evidence of acute cortical infarct. Chronic small vessel ischemic white matter disease and diffu se cerebral volume loss. Manufacturing Supervisor: PSCB Transcribe Date/Time: Jun 17 2020 7:40A Dictated by : CARLOS PELAEZ MD This examination was interpreted and the report reviewed and electronically signed by: CARLOS PELAEZ MD on Jun 17 2020 7:49AM EST consult on CONSULT HNO ID: [id number] Normal 06-17-2020 [facility] Service: Neurosurgery ([id number]) Author Type: Physician Type: Consults Filed: 06/19/2020 [...] head bleed. He was admitted to a longterm care facility at that time and required [...] June 16, 2020 TIME: 11:29 PM Pager: [phone] I reviewed the pertinent patient history and examination per formed by PA/CUSTOMER SOLUTIONS SUPERVISOR and examined the patient myself on June 17, 2020 U nless indicated below I agree with the plan of care discussed. Willow Leach MD CONSULT HNO ID: [id number] Normal 06-17-2020 [facility] Author: [facility] Service: General [facility] ([id number]) Author Type: Resident Type: Consults Filed: 06/17/2020 12:02 AM Note Text: CONSULT: SICU Surgery Service SERVICE DATE: 06/16/2020 SERVICE TIME: 11:04 PM REASON FOR CONSULT: subdural hematoma REQUESTING PHYSICIAN: ED Subjective 49 year old male presents to [facility] as a transfer from [place] . He apparently fell at home on [...] June 16, 2020 TIME: 11:04 PM Pager: [phone] comprehensive metabolic panel on 2020-06-17 Albumin [Mass/Vol] 4.0 3.9-4.9 g/dL Normal 06-17-2020 [facility] (39325) Comment: Performed By: #### CMP #### [place] [address] ALP [Catalytic activity/Vol] 74 38-113 U/L Normal 0 06-17-2020 [facility] (00 000) Comment: Performed By: #### CMP #### [place] [id number] ALT [Catalytic activity/Vol] 45 10-54 U/L Normal 0 06-17-2020 [facility] (00 000) Comment: Performed By: #### CMP #### [facility] [address] [place], [place] [address] Anion gap [Moles/Vol] 14 9-18 mmol/L Normal 06-17-20 20 [facility] (03366) Comment: Performed By: #### CMP #### [facility] [address] [place], [place] [address] AST [Catalytic activity/Vol] 140 14-40 U/L High 0 06-17-2020 [facility] (00 000) Comment: Performed By: #### CMP #### [facility] [address] [place], [place] [address] Bilirubin [Mass/Vol] 0.7 0.2-1.3 mg/dL Normal 0 [facility] (34678) Comment: Performed By: #### CMP #### [facility] [address] [place], [place] [address] Calcium [Mass/Vol] 7.9 8.5-10.2 mg/dL Low 06-17-2020 [facility] (45718) Comment: Performed By: #### CMP #### [facility] [address] [place], [place] [address] Chloride [Moles/Vol] 98 97-105 mmol/L Normal 0 [facility] (23137) Comment: Performed By: #### CMP #### [facility] [address] [place], [place] [address] CO2 Blood 28 22-30 mmol/L Normal 06-17-2020 [facility] (05857) Comment: Performed By: #### CMP #### [facility] [address] [place], [place] [address] Creatinine [Mass/Vol] 0.48 0.73-1.22 mg/dL Low 06-17-20 20 [facility] (69821) Comment: Performed By: #### CMP #### [facility] [address] [place], [place] [address] Glucose [Mass/Vol] 72 74-99 mg/dL Low 06-17-2020 [facility] (09834) Comment: Result Comment: The [employer] Diabetes Association (ADA) provides guidance for cutoff [...] Standards of Medical Care in Diabetes 2016; [employer] Diabetes Association. Diabetes Care. 2016;39(Suppl 1). Performed By: #### CMP #### [facility] [address] [place], [place] [address] Potassium [Moles/Vol] 3.0 3.7-5.1 mmol/L Low 06-17-20 20 [facility] (85102) Comment: Performed By: #### CMP #### [facility] [address] [place], [place] [address] Protein [Mass/Vol] 6.8 6.3-8.0 g/dL Normal 06-17-2020 [facility] (27745) Comment: Performed By: #### CMP #### [facility] [address] [place], [place] [address] Sodium [Moles/Vol] 140 136-144 mmol/L Normal 06-17-2020 [facility] (22352) Comment: Performed By: #### CMP #### [facility] [address] [place], [place] [address] Urea nitrogen [Mass/Vol] 6 9-24 mg/dL Low 06-17 [facility] (29189) Comment: Performed By: #### CMP #### [facility] [address] [place], [place] [address] case mgt init asses on 2020-06-17 CASE MGT INIT HNO ID: [id number] Normal 020 [facility] Author: Melissa (Sw) [facility] Service: Social Work ([id number]) Author Type: [place] Type: Care Mgt Initial Assessment Filed: 06/17/2020 3:42 PM Note Text: CARE MANAGEMENT: ASSESSMENT AND DISCHARGE PLAN SERVICE DATE: June 17, 2020 SERVICE TIME: 3:31 PM PRIMARY CARE PHYSICIAN: Yoko Glover MD ADMISSION STATUS: Inpatient Needs Prior to Discharge: To Be Determined MEDICAL: [facility] MEDICAID 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 Last discharge within 30 days: No Advance Directive: Current Advance Directive: None Financial Administrative Assistant Attempted to Assist with AD Completion: Yes [...] Patient Currently Receive Any Community Services or [facility] Care?: None Equipment Prior to Admission: None SOCIAL: Living Arrangements: Home Lives With: Alone Financial Resources: EmployedPrimary Contact: Extended Emerg ency Contact Information Primary Emergency Contact: GERONIMO VILLATORO Address: [address] [place] [address] Relation: Spouse Supportive Patient Contact:: Yes Contact [...] Completely I feel financially burdened by my pkc-id-ixxbyh expenses for my prescription medication:: 0 - [...] Yes - Do you ever drink an eye-hogshead opener in the morning to relieve shakes? No FREEDOM OF CHOICE EXPLAINED: [place] Given: Yes Level of Care [...] in his life. +PCP (Dr. Elmer Bolton- [facility], [place]). Discussed plan of care and recommendation for acute rehab. P t refusing stating he needs to d/c home. Declined conversation at this time re: home PT/OT. (PT 6 Clicks Score 14; OT 6 Clicks Score 14). Completed CAGE assessment with pt stating hx of substance us e tx at [facility] in [place]. Discussed assessment and treatment suppor ts available; Pt declined additional resource information at this time.. E ducation provided on cessation of use to encourage healthy life patte rns. Transitional care plan: tbd; Home with [facility] SIGNATURE: DRE Whitaker PATIENT NAME: Meryl Ogden DATE: June 17, 2020 TIME: 3:31 PM PAGER/CONTACT #: [phone] case managem on CASE MANAGEM HNO ID: [id number] Normal 06-17-20 [facility] Author: Belén Maldonado (Sw)[facility] [place] ([id number]) Service: Social Work Author Type: [place] Type: Care Mgt Progress Note Filed: 06/17/2020 4:21 PM Note Text: CARE MANAGEMENT PROGRESS NOTE SERVICE DATE: 06/17/2020 SERVICE TIME: 4:04 PM LOS: 0 days Lengthy phone conversation with pt mother, Jacqueline Rodriguez ). Pt mother and father live in [place] at [facility]. Mother reports pt does not [...] 17, 2020 TIME: 4:04 PM PAGER/CONTACT #: [phone] basic metabolic panel on 2020-06-17 Anion gap [Moles/Vol] 15 9-18 mmol/L Normal 06-17-20 [facility] (87554) Comment: Performed By: #### BMP #### [facility] [address] [place], [place] [address] Calcium [Mass/Vol] 8.0 8.5-10.2 mg/dL Low 06-17-2020 [facility] (79802) Comment: Performed By: #### BMP #### [facility] [address] [place], [place] [address] Chloride [Moles/Vol] 96 97-105 mmol/L Low 0 [facility] (48298) Comment: Performed By: #### BMP #### [facility] [address] [place], [place] [address] CO2 Blood 26 22-30 mmol/L Normal 06-17-2020 [facility] (33312) Comment: Performed By: #### BMP #### [facility] 1 [place], [place] [address] Creatinine [Mass/Vol] 0.50 0.73-1.22 mg/dL Low 06-17-20 20 [facility] ([address]20) Comment: Performed By: #### BMP #### [facility] [address] [place], [place] [address] Glucose [Mass/Vol] 67 74-99 mg/dL Low 06-17-2020 [facility] (22673) Comment: Result Comment: The [employer] (ADA) provides guidance for cutoff [...] Standards of Medical Care in Diabetes 2016; [employer]. Diabetes Care. 2016;39(Suppl 1). Performed By: #### BMP #### [facility] [address] [place], [place] [address] Potassium [Moles/Vol] see below 3.7-5.1 Normal 06-17-20 [facility] (00 000) Comment: Result Comment: Unable to as say. Specimen Hemolyzed Performed By: #### BMP #### [facility] [address] [place], [place] [address] Sodium [Moles/Vol] 137 136-144 mmol/L Normal 06-17-2020 [facility] (14811) Comment: Performed By: #### BMP #### [facility] [address] [place] [address] Urea nitrogen [Mass/Vol] 5 9-24 mg/dL Low 06-17 [facility] ([address]28) Comment: Performed By: #### BMP #### [facility] [address] [place] [address] alcohol, serum on 2 Alcohol, Serum 47.0 < 11 mg/dL High 06-17-2020 [facility] ([address]21) Comment: Performed By: #### ALCO3 ### # [facility] [address] [place] [address] activated ptt on 28-06-09 aPTT Coag (Bld) [Time] 27.9 23.0-32.4 sec Normal [facility] (00 000) Comment: Result Comment: Unfractionat ed [...] AP TT reagent in use throughout the [facility]. Performed By: #### ALCO3 ### # [facility] [address] [place] [address] abo/rh confirmation on 2020-06-17 ABO group Nom (Bld) B Normal 06-17-2020 [facility] ([address]71) Comment: Performed By: #### ALCO3 ### # [facility] [address] [place] [address] RH Type Positive Normal 06-17-2020 [facility] [place] (19851) Comment: Performed By: #### ALCO3 ### # [facility] [address] [place] [address] ed note on ED NOTE HNO ID: [id number] Normal 06-16-2020 [facility] Author: Jessica (RnZahraa Strickland RN [place] ([id number]) Service: ? Author Type: Registered Nurse Type: ED Notes Filed: 06/16/2020 9:18 PM Note Text: Bed: 16-ED Expected date: Expected time: Means of arrival: Comments: YASH TRAUMA CONSULT Procedures Procedure Name Date Provider Location Antibody screen 06-17-2020 [facility] ([id number]) Comment: Performed By: #### ALCO3 ### # [facility] [address] [place], [place] [address] Summary Purpose Family History No Family History [...] BE BASED ON THE PRIMARY CLINICAL RECORDS. [facility] provides no warranty or guarantee of the accuracy or completeness of information in this document. UNRECOGNIZED CONTENT PROVIDED BELOW FOR UNRECOGNIZED SECTION No Status Records FoundNo Status Records Found UNRECOGNIZED CONTENT PROVIDED BELOW FOR UNRECOGNIZED SECTION INFORMATION SOURCE DATE CREATED AUTHOR AUTHOR'S ORGANIZATIO N 07/02/2020 [facility] DATE CREATED AUTHOR AUTHOR'S ORGANIZATIO N 07/13/2020 [facility]
== END 2020-03-25 11:09 | disposition home or self-care (01) ==
LOC: ED 10:50
PROVIDERS: Emergency Provider Emergency Medicine; PCP Family Medicine
DX: S43.102A Unspecified dislocation of left acromioclavicular joint, initial encounter (principal); W19.XXXA Unspecified fall, initial encounter; Y93.9 Activity, unspecified; Y92.9 Unspecified place or not applicable; F17.200 Nicotine dependence, unspecified, uncomplicated
CPT/HCPCS: 73030; 99284

== ENCOUNTER → 2020-03-31 08:40 | Outpatient (CLI) | payer MEDICAID, SELFPAY ==
--- NOTE | 2020-03-31 08:41 | RAD_ITS ---
STUDY: X-RAY - LEFT SHOULDER REASON FOR EXAM: Follow-up shoulder dislocation. TECHNIQUE: A single axillary view of the shoulder. COMPARISON: Radiographs 03/25/2020. FINDINGS: Normal glenohumeral articulation. There is acromioclavicular separation. Normal acromion. Normal humeral head and visualized proximal humerus. The soft tissue structures are unremarkable. RAD/Shoulder One View IMPRESSION: Acromioclavicular separation. Electronically Signed: Cj Leger MD at 9:19 EDT Tel , Service support ,
== END ==
PROVIDERS: PCP Family Medicine; Referring Provider Orthopaedic Surgery; Visit Provider Orthopaedic Surgery
DX: S43.102A Unspecified dislocation of left acromioclavicular joint, initial encounter (principal)
CPT/HCPCS: 73020

== ENCOUNTER 2020-04-08 11:50 | Inpatient (IN) | payer MEDICAID, SELFPAY ==
[2020-04-08] VITALS (9 sets, daily range): BP systolic 124–149; BP diastolic 82–104; PULSE 80–107; RESP 14–20; TEMP 36.7–38.2; O2SAT 96–100; BMI 19.5; BMI 19.6
--- NOTE | 2020-04-08 12:01 | EKG12_ITS ---
Test Reason : Blood Pressure : / mmHG Vent. Rate : 099 BPM Atrial Rate : 099 BPM P-R Int : 138 ms QRS Dur : 078 ms QT Int : 376 ms P-R-T Axes : 063 -34 051 degrees QTc Int : 482 ms Normal sinus rhythm Left axis deviation Prolonged QT Abnormal ECG Confirmed by DAVID WILLIAM ([id number]), supervising editor news reel HANNA COLLINS ([id number]) on 04/13/2020 2:20:37 PM Referred By: TORREY/CAROLYN Confirmed By:DAVID WILLIAM
[2020-04-08 12:28] LABS: Absolute Lymphocyte Count 0.87 X10^3/uL (0.83-4.51); Absolute Neutrophil Count 4.4 X10^3/uL (2.0-7.7); Basophil# 0.03 X10^3/uL; Basophil% 0.5 % (0-1); Eosinophil# 0.12 X10^3/uL; Eosinophils% 2.1 % (0-5); Hematocrit 36.6 % (40-54); Hemoglobin 12.6 g/dL (13.0-16.5); Lymphocyte # 0.87 X10^3/ul (4.0); Mean Corp Hgb Conc 34.4 g/dL (32-36); Mean Corpuscular Hgb 34.3 pg (27.0-32.0); Mean Corpuscular Volume 99.7 fL (80-94); Monocyte# 0.35 X10^3/uL; NRBC Flagged by Analyzer 0 % (0-5); Neutrophil # 4.42 X10^3/uL (2.7-7.7); Neutrophil % 76.2 % (47-70); Platelet Count 111 K/mm3 (150-450); RBC Distribution Width CV 13.6 % (11.6-14.6); RBC Distribution Width SD 49.1 fl (35.1-43.9); Red Blood Count 3.67 M/mm3 (4.6-6.2); White Blood Count 5.8 K/mm3 (4.4-11.0)
[2020-04-08 12:40] LABS: Anion Gap 11 (5-15); BUN 9 mg/dL (7-18); BUN/Creat Ratio 13.9 RATIO (10-20); Calcium,Total 8.7 mg/dL (8.5-10.1); Chloride 98 mmol/L (98-107); Creatinine, Serum 0.65 mg/dL (0.70-1.30); EST Glomerular Filtration Rate 138 mL/min (>60); Est Glom Filt Rate - Afr Amer 167 mL/min (>60); Estimated Creatinine Clearance 135.02 ml/min; Glucose 102 mg/dL (74-106); Potassium 3.4 mmol/L (3.5-5.1); Sodium Level 136 mmol/L (136-145)
[2020-04-08 12:44] LABS: International Normalized Ratio 1.1; Prothrombin Time (Protime)PT. 13.4 SECONDS (11.7-14.9)
[2020-04-08 12:45] LABS: Partial Thromboplast Time 27.8 Seconds (24.1-36.2)
[2020-04-08] MEDS: Ondansetron 4 MG/2 ML Vial IV ×2 (13:08→14:30)
[2020-04-08] MEDS: 0.9% Normal Saline 1,000 ML 50 ML IV (13:52)
[2020-04-08] MEDS: 0.9% Normal Saline 1,000 ML 1000 ML IV (14:09)
[2020-04-08] MEDS: Metoclopramide 10 MG/2 ML Vial IV (14:10)
[2020-04-08 14:11] LABS: AST(SGOT) 47 U/L (15-37); Alanine Aminotransfer ALT/SGPT 29 U/L (16-61); Albumin, Serum 3.9 g/dL (3.2-5.0); Alkaline Phosphatase 76 U/L (45-117); Bilirubin, Direct 0.41 mg/dL (0.00-0.30); Globulin 4.2 g/dL (2.2-4.2); Protein, Total 8.1 g/dL (6.4-8.2)
[2020-04-08] MEDS: LORazepam 2 MG/ML Syringe 1 MG IV (14:29)
[2020-04-08] MEDS: Phenobarbital 32.4 MG Tablet PO (14:30)
[2020-04-08 14:39] LABS: Alcohol, Blood (Medical)-Serum < 3.0 mg/dL
--- NOTE | 2020-04-08 16:27 | ED.VISSUMM ---
- ER Visit Summary Date of Service: 04/08/20 Chief Complaint: Weakness and anxiety History of Present Illness: The patient is a 49 M who presents with generalized weakness and anxiety that has gotten worse today. Patient states it is gradually gotten worse since this morning. Patient states he feels weak and off balance. Patient states he has had similar symptoms in the past and has fallen. Patient states he fell recently and injured his left arm. Patient denies any further injury of his left arm. Patient admits to drinking 6 beers per day but states he is trying to wean himself off of alcohol. Patient is agreeable to detox. Physical Examination: Vital signs are stable except for mild tachycardia of 103. Patient is afebrile. Patient is in no acute distress. Oral mucosa is pink and moist. Neck is supple. Trachea is midline. There is no JVD. Heart was regular and mildly tachycardic. Lungs are clear and equal bilaterally. Abdomen is soft. Bowel sounds are normal. There is no tenderness. Cranial nerves II through XII are intact. There are no focal motor or sensory deficits noted. Extremities are intact. There is no calf tenderness or edema. Test Results: CBC shows a mild anemia with a hemoglobin of 12.6 and hematocrit 36.6. Total bilirubin was slightly elevated at 1.3 and direct bilirubin was slightly elevated at 0.41. AST was slightly elevated at 47. Serum alcohol level was normal at less than 3.0. Urine tox screen was ordered and is pending. Emergency Department Course and Treatment: Patient was given IV fluids. Patient was given a dose of Zofran initially. Patient was still vomiting. Patient was given a dose of Reglan here. Patient had no improvement with this. Patient was given another dose of Zofran. Patient was given oral phenobarbital. Patient was also given a dose of Ativan IV. Patient is agreeable to be admitted for detox from alcohol. Case was discussed with the hospitalist. She will admit the patient to her service. Patient understands and is agreeable with the plan. All questions were answered. Disposition: Admit to hospital Impression: Alcohol withdrawal This note was generated with [employer] dictation software. It may contain incorrect words, spelling, and punctuation that were not noted in review of the chart prior to signing ED Disposition - Plan for ED Patient: Disposition: Acute Care Hospital [facility] Diagnosis: Alcohol withdrawal Referrals: Elmer Bolton MD [Primary Care Provider] -
--- NOTE | 2020-04-08 16:41 | HP.PCM_ITS ---
Problem List (1) Anemia Status: Acute Qualifiers: Anemia type: unspecified type Qualified Code(s): D64.9 - Anemia, unspecified History of Present Illness Date of Admission: 04/08/20 The patient is a 49 year old M who has had multiple admissions for detox in the last 2 yrs presented to the ED this am with the request for detox. He states that he started drinking in 2007 when his marriage failed and has had a problem with EtOH since then. He states that he had been drinking about a fifth of Vodka a day up until the last 2 weeks when he switched to beer. He states that he has slowly weaned himself from beer and is now down to about 5-6 beers daily but he is starting to have more profound sx and needs help with detox. His last drink was this am at about 10 and he states that he has had only 1 beer today. His blood EtOH level is negative. Tox screen is pending but pt denies any other use other than nicotine. He is mildly hypokalemic and has elevated bilirubin at 1.3 for total. He has mild anemia and thrombocytopenia as well. Past Medical History Past Medical History (Chronic Problems): Chronic Problems (Last Reviewed 04/08/20 @ 17:[address] Simran Carranza DO) Alcohol abuse (Chronic) Anxiety (Chronic) Thrombocytopenia (Chronic) Hypokalemia (Chronic) Arthritis of left hip (Chronic) Tobacco dependency (Chronic) Medical History: Medical History (Last Reviewed 04/08/20 @ 17:[address] Simran Carranza DO) Hx of seizure disorder Z86.69 Allergies diphenhydramine HCl [From Benadryl] Adverse Reaction (Verified 04/08/20 11:58) Swelling mushroom Adverse Reaction (Verified 04/08/20 11:58) Vomiting Home Medications: Ambulatory Orders Medication Instructions Recorded Multivit-Min/FA/Lycopen/Lutein 1 tab PO DAILY 04/08/20 [Centrum Silver Men Tablet] Naproxen Sodium [Aleve] 220 mg PO DAILY PRN PRN 04/08/20 Surgical History: tonsillectomy Psychiatric History: No pertinent psych hx Lives: Alone Smoking Status: Current every day smoker Tobacco Use: Pipe Alcohol: Heavy Drugs: None - *Family History Sibling History Items: No pertinent history Maternal History Items: Hypertension Paternal History Items: No pertinent history Review of Systems Constitutional: Denies: Anorexia, Chills, Fever, Night Sweats, Malaise, Weakness, Weight Change, Fatigue Eyes: Denies: Blurred vision, Cataracts, Double vision, Drainage, Pain, Redness, Vision Change HEENT: Denies: Difficulty Hearing, Difficulty Swallowing, Ear Pain, Head Aches, Nasal bleeding, Nasal Congestion, Post Nasal Drip, Sinus Congestion, Sinus Drainage, Sore Throat Cardiovascular: Denies: Chest Pain, Claudication, Chest Pressure, Chest Tightness, Edema, Heaviness, Light Headedness, Orthopnea, Palpitations, Paroxysmal Noc. Dyspnea, Syncope Respiratory: Denies: Cough, Hemoptysis, Pleuritic Pain, Shortness of Breath, Shortness of breath at rest, Shortness of breath upon exertion, Sputum production, Wheezing Gastrointestinal: Reports: Nausea. Denies: Abdominal Pain, Constipation, Diarrhea, Dyspepsia, Hematemesis, Hematochezia, Melena, Vomiting Genitourinary: Denies: Dysuria, Frequency, Hematuria, Hesitancy, Incontinence, Nocturia, Retention, Urgency Musculoskeletal: Reports: Arm Pain - L UE --> was evaluated when it occured. Denies: Back Pain, Joint Pain, Joint stiffness, Joint swelling, Joint Tenderness, Muscle pain, Neck Pain Skin: Denies: Dryness, Jaundice, Lesions, Pruritis, Rash, Skin Changes, Wounds Neurological: Denies: Balance problems, Blurred vision, Double vision, Change in Speech, Slurred speech, Confusion, Difficulty swallowing, Focal weakness, Headaches, Incoordination, Numbness, Tingling, Tremor, Seizures Psychiatric: Reports: Anxiety, Depression. Denies: Homicidal Ideations, Suicidal Ideations Endocrine: Denies: Change in Body Habitus, Heat/ Cold Intolerance, Polydipsia, Polyuria Hematologic/ Lymphatic: Denies: Adenopathy, Anemia, Easy Bruising, Easy Bleeding, Petechiae, Purpura VTE Information - Inpt Only VTE Present on Admission: No VTE Mechan Device Prophylaxis: SCD's VTE Pharm Prophylaxis ordered?: No Patient Problems: Active and Suspected Problems (Last Reviewed 04/08/20 @ 17:[address] Simran Carranza, DO) Anemia (Acute) Alcohol withdrawal (Acute) - Physical Exam Vitals/I&O's: Vital Signs Temp Pulse Resp BP Pulse Ox 98.0 F 80 14 127/82 H 98 04/08/20 13:09 04/08/20 14:13 04/08/20 14:13 04/08/20 14:13 04/08/20 14:13 Oxygen Delivery Method Room Air Weight: 71 kg Body Mass Index (BMI) 19.5 Finger Stick Blood Glucose 120 Intake and Output for Last 24 Hours 04/06/20 04/07/20 04/08/20 23:59 23:59 23:59 Intake Total 1000 / 1000 Balance 1000 / 1000 General: Alert, Oriented x3, Cooperative, No apparent distress, Well developed, Well nourished HEENT: Atraumatic, PERRLA, EOMI, Normocephalic, EAC Clear Oral: No Gingival or Mucosal Lesions/ Ulcerations, Dry Mucosa, - - poor dentition Neck: Supple, No JVD, Negative Carotid Bruits, Negative Hepatojugular Reflux, No Nodes, No Nuchal Rigidity, Trachea Midline, Thyroid Normal Size and Texture Lungs: Clear to auscultation, Normal air movement, No rhonchi, No wheeze, No rales Cardiovascular: Regular rate, Regular Rhythm, Normal S1, Normal S2, No murmurs, No Ectopic Activity, No rub noted, No Gallop Abdomen: Bowel Sounds Present, Soft, Non Tender, Non-Distended, No Hepato- splenomegaly, No hernias noted Extremities: No clubbing, No cyanosis, No edema, Capillary Refill Less than 3 Seconds, Peripheral Pulses Normal Skin: No rashes, No breakdown, - - ecchymosis L brachium Musculoskeletal: No Tenderness to Palpation of Joints or Extremities, No Muscle Wasting Lymphatic: No Cervical, Supraclavicular, or Inguinal Adenopathy Neurological: Cranial nerves II-XII grossly intact, Deep Tendon Reflexes 2+/4 and Symmetrical, Neuro grossly intact, Muscle tone normal, Sensory exam intact to light touch and pain, Coordination normal Psych/Mental Status: Appropriate, Flat Affect, - - A&O x3 Laboratory Results 04/08/20 12:15: WBC 5.8, RBC 3.67 L, Hgb 12.6 L, Hct 36.6 L, MCV 99.7 H, MCH 34.3 H, MCHC 34.4, RDW Std Deviation 49.1 H, RDW Coeff of Isabel 13.6, Plt Count 111 L, MPV 9.0, Immature Gran % (Auto) 0.200, Neut % (Auto) 76.2 H, Lymph % (Auto) 15.0 L, Chambers % (Auto) 6.0, Eos % (Auto) 2.1, Baso % (Auto) 0.5, Absolute Neuts (auto) 4.4, Absolute Lymphs (auto) 0.87, Nucleated RBC % 0 04/08/20 12:15: PT 13.4, INR 1.1, APTT 27.8 04/08/20 12:15: Sodium 136, Potassium 3.4 L, Chloride 98, Carbon Dioxide 27.0, Anion Gap 11, BUN 9, Creatinine 0.65 L, Estim Creat Clear Calc 135.02, Est GFR (MDRD) Af Amer 167, Est GFR (MDRD) Non-Af 138, BUN/Creatinine Ratio 13.9, Glucose 102, Calcium 8.7 04/08/20 12:15: Total Bilirubin 1.30 H, Direct Bilirubin 0.41 H, AST 47 H, ALT 29, Alkaline Phosphatase 76, Total Protein 8.1, Albumin 3.9, Globulin 4.2 04/08/20 13:51: Ethyl Alcohol < 3.0 Current Medications Sodium Chloride () 1,000 mls @ 50 mls/hr IV .Q20H ROBERT Last Admin: 04/08/20 13:52 Dose: 50 mls/hr Documented by: Assessment/Plan All Active Problems (Last Reviewed 04/08/20 @ 17:[address] Simran Carranza, DO) Anemia (Acute) Hypokalemia (Acute) Hypoxia (Acute) Alcohol withdrawal (Acute) Acute EtOH Withdrawal -suspect pt will detox quickly as he has already been weaning himself at home -Detox protocol with Phenobarb -PRN ativan -CIWA -Thiamine and Folate -may need inpt treatment with outpt f/u and support Hypokalemia -20 mEq x 1 dose -repeat am lab -check mg Hyperbilirubinemia -suspect related to drinking -repeat LFT in am Anemia and Thrombocytopenia -suspect myelosuppression related to EtOH abuse -repeat in am and trend H/O depression/Anxiety -takes nothing at this time -will need to discuss and see if he is amenible to starting something Tobacco use -Nicotine patch 14 mcg daily -recommend cessation DVT prophylaxis -SCD's while in bed Code status -Full Inpatient E&M: 27528 Init Hosp L3
[2020-04-08 17:47] LABS: Amphetamine Urine VISTA NEGATIVE (<1000 ng/mL); Barbiturate Urine VISTA NEGATIVE (< 200 ng/mL); Benzodiazepine Urine VISTA NEGATIVE (< 200 ng/mL); Cocaine Urine VISTA NEGATIVE (< 300 ng/mL); Ecstacy Urine VISTA NEGATIVE (< 500 ng/mL); Methadone Urine VISTA NEGATIVE (< 300 ng/mL); PCP Urine VISTA NEGATIVE (< 25 ng/mL); THC Urine VISTA NEGATIVE (< 50 ng/mL); Vista UDS pH Range 7
[2020-04-08] MEDS: Phenobarbital 32.4 MG Tablet 97.2 MG PO ×2 (18:33→22:39)
[2020-04-08] MEDS: Ondansetron 8 MG Tablet PO (19:42)
[2020-04-08] MEDS: LORazepam 1 MG Tablet 2 MG PO (21:44)
[2020-04-09 01:34] VITALS: BP 118/83; PULSE 84; RESP 18; TEMP 37.3; O2SAT 99
[2020-04-09] MEDS: hydrOXYzine PAM 25 MG Capsule 50 MG PO (01:48)
[2020-04-09] MEDS: Phenobarbital 32.4 MG Tablet 97.2 MG PO ×4 (03:07→14:37)
[2020-04-09 05:31] VITALS: BP 131/88; PULSE 85; RESP 18; TEMP 37.1; O2SAT 99
[2020-04-09 07:02] LABS: Absolute Lymphocyte Count 1.35 X10^3/uL (0.83-4.51); Absolute Neutrophil Count 3.7 X10^3/uL (2.0-7.7); Basophil# 0.02 X10^3/uL; Basophil% 0.4 % (0-1); Eosinophil# 0.34 X10^3/uL; Hematocrit 37.9 % (40-54); Hemoglobin 13.1 g/dL (13.0-16.5); Lymphocyte # 1.35 X10^3/ul (4.0); Lymphocyte % 23.8 % (19-41); Mean Corp Hgb Conc 34.6 g/dL (32-36); Mean Corpuscular Hgb 34.4 pg (27.0-32.0); Mean Corpuscular Volume 99.5 fL (80-94); Mean Platelet Vol. 10.1 fl (6.2-12.0); Monocyte# 0.29 X10^3/uL; Monocyte% 5.1 % (0-10); NRBC Flagged by Analyzer 0 % (0-5); Neutrophil # 3.65 X10^3/uL (2.7-7.7); Neutrophil % 64.3 % (47-70); POSITIVE COUNT YES; RBC Distribution Width CV 13.2 % (11.6-14.6); RBC Distribution Width SD 47.4 fl (35.1-43.9); Red Blood Count 3.81 M/mm3 (4.6-6.2); White Blood Count 5.7 K/mm3 (4.4-11.0)
[2020-04-09 07:09] LABS: Platelet Count 80 K/mm3 (150-450)
[2020-04-09 07:31] LABS: Phosphorus 2.7 mg/dL (2.5-4.9)
[2020-04-09 07:37] VITALS: BP 130/98; PULSE 107; RESP 16; TEMP 37.3; O2SAT 97
--- NOTE | 2020-04-09 07:42 | PN_ITS ---
Patient Problems: Active and Suspected Problems (Last Reviewed 04/08/20 @ 17:[address] Simran Carranza, DO) Anemia (Acute) Alcohol withdrawal (Acute) Reason for Visit: Acute alcohol withdrawal Subjective: Naomi is a 49-year-old gentleman with history of chronic alcohol who presented with chronic alcohol withdrawal admitted to regular nursing floor for medical stabilization Objective: GENERAL: cooperative HEENT: Atraumatic; EYES; Anicteric, Normal Conjunctiva NECK; supple, normal thyroid, RESPIRATORY: Diminished to auscultation CARDIOVASCULAR: Regular S1 S2, GI: soft, normoactive bowel sounds, : No Renal angle tenderness; EXTREMITIES: No edema, no clubbing, MUSCULOSKELETAL: no muscle waisting NEURO: Awake; no lateralizing signs. SKIN: No Rash PSYCH; Flat affect Vitals/I&O's: Vital Signs Temp Pulse Resp BP Pulse Ox 99.2 F H 107 H 16 130/98 H 97 04/09/20 07:37 04/09/20 07:37 04/09/20 07:37 04/09/20 07:37 04/09/20 07:37 Oxygen Delivery Method Room Air Weight: 71 kg Body Mass Index (BMI) 19.5 Finger Stick Blood Glucose 120 Intake and Output for Last 24 Hours 04/07/20 04/08/20 04/09/20 23:59 23:59 23:59 Intake Total 1000 / 1300 1600 / 1600 Output Total 575 / 575 Balance 1000 / 1025 1025 / 1025 Laboratory Results 04/08/20 12:15: WBC 5.8, RBC 3.67 L, Hgb 12.6 L, Hct 36.6 L, MCV 99.7 H, MCH 34.3 H, MCHC 34.4, RDW Std Deviation 49.1 H, RDW Coeff of Isabel 13.6, Plt Count 111 L, MPV 9.0, Immature Gran % (Auto) 0.200, Neut % (Auto) 76.2 H, Lymph % (Auto) 15.0 L, Owen % (Auto) 6.0, Eos % (Auto) 2.1, Baso % (Auto) 0.5, Absolute Neuts (auto) 4.4, Absolute Lymphs (auto) 0.87, Nucleated RBC % 0 04/08/20 12:15: PT 13.4, INR 1.1, APTT 27.8 04/08/20 12:15: Sodium 136, Potassium 3.4 L, Chloride 98, Carbon Dioxide 27.0, Anion Gap 11, BUN 9, Creatinine 0.65 L, Estim Creat Clear Calc 135.02, Est GFR (MDRD) Af Amer 167, Est GFR (MDRD) Non-Af 138, BUN/Creatinine Ratio 13.9, Glucose 102, Calcium 8.7 04/08/20 12:15: Total Bilirubin 1.30 H, Direct Bilirubin 0.41 H, AST 47 H, ALT 29, Alkaline Phosphatase 76, Total Protein 8.1, Albumin 3.9, Globulin 4.2 04/08/20 13:51: Ethyl Alcohol < 3.0 04/08/20 16:55: Urine Opiates Screen NEGATIVE, Urine Methadone Screen NEGATIVE, Ur Barbiturates Screen NEGATIVE, Ur Phencyclidine Scrn NEGATIVE, Ur Amphetamines Screen NEGATIVE, U Methamphetamin-MDMA NEGATIVE, U Benzodiazepines Scrn NEGATIVE, Urine Cocaine Screen NEGATIVE, U Cannabinoids Screen NEGATIVE, Ur Drug Screen Comment 04/09/20 06:28: Sodium Pending, Potassium Pending, Chloride Pending, Carbon Dioxide Pending, Anion Gap Pending, BUN Pending, Creatinine Pending, Est GFR (MDRD) Af Amer Pending, Est GFR (MDRD) Non-Af Pending, BUN/Creatinine Ratio Pending, Glucose Pending, Calcium Pending, Magnesium Pending, Total Bilirubin Pending, Direct Bilirubin Pending, AST Pending, ALT Pending, Alkaline Phosphatase Pending, Total Protein Pending, Albumin Pending 04/09/20 06:28: WBC 5.7, RBC 3.81 L, Hgb 13.1, Hct 37.9 L, MCV 99.5 H, MCH 34.4 H, MCHC 34.6, RDW Std Deviation 47.4 H, RDW Coeff of Isabel 13.2, Plt Count 80 L, MPV 10.1, Immature Gran % (Auto) 0.400, Neut % (Auto) 64.3, Lymph % (Auto) 23.8, Owen % (Auto) 5.1, Eos % (Auto) 6.0 H, Baso % (Auto) 0.4, Absolute Neuts (auto) 3.7, Absolute Lymphs (auto) 1.35, Nucleated RBC % 0 04/09/20 06:28: Phosphorus 2.7 Current Medications Acetaminophen (Tylenol) 650 mg PO Q6H PRN PRN PRN Reason: Pain Score 1-10/Temp > 100.7 F Al Hydroxide/Mg Hydroxide (Mylanta Ii) 30 ml PO Q6H PRN PRN PRN Reason: Gastric Burning Dextrose (D50w Syringe) 0 gm IV X1 PRN; Protocol PRN Reason: Hypoglycemia Dicyclomine HCl (Bentyl) 20 mg PO Q6H PRN PRN PRN Reason: abdominal discomfort Folic Acid (Folic Acid) 1 mg PO DAILY@0800 [facility] Gabapentin (Neurontin) 300 mg PO Q8H PRN PRN PRN Reason: moderate to severe anxiety Glucagon () 1 mg IM .X1 PRN PRN Reason: Hypoglycemia Hydroxyzine Pamoate (Vistaril Pamoate Capsule) 50 mg PO Q4H PRN PRN PRN Reason: mild anxiety Last Admin: 04/09/20 01:48 Dose: 50 mg Documented by: Sodium Chloride () 250 mls @ 15 mls/hr IV .[id number] PRN PRN Reason: Saline Flush Loperamide HCl (Imodium) 2 mg PO Q4H PRN PRN PRN Reason: LOOSE STOOLS Lorazepam (Ativan) 2 mg PO Q2H PRN PRN; Protocol PRN Reason: CIWA score > 8 but <15 Last Admin: 04/08/20 21:44 Dose: 2 mg Documented by: Lorazepam (Ativan) 2 mg PO UD PRN; Protocol PRN Reason: CIWA score >/=15. Lorazepam (Ativan) 2 mg IV Q2H PRN PRN; Protocol PRN Reason: CIWA score > 8 but <15 Lorazepam (Ativan) 2 mg IV UD PRN; Protocol PRN Reason: CIWA score >/=15. Melatonin (Melatonin) 3 mg PO QHS PRN PRN PRN Reason: INSOMNIA Multivitamins/Minerals (Multivitamin With Minerals (Bkc)) 1 tablet PO DAILY@0800 [facility] Nicotine (Nicoderm Cq (Pbkc)) 14 mg TRANSDERM. DAILY [facility] Nutritional Formula (Lactose Free) (Ensure Enlive) 120 ml PO 4X/DAY [facility] Last Admin: 04/08/20 21:44 Dose: 120 ml Documented by: Ondansetron HCl (Zofran) 8 mg PO Q8H PRN PRN PRN Reason: NAUSEA Last Admin: 04/08/20 19:42 Dose: 8 mg Documented by: Phenobarbital (Phenobarbital) 97.2 mg PO Q4H ROBERT; Taper Stop: 04/13/20 02:59 Last Admin: 04/09/20 06:22 Dose: 97.2 mg Documented by: Sodium Chloride () 10 - 40 ml IV UD PRN PRN Reason: SALINE FLUSH Thiamine HCl (Vitamin B1) 200 mg PO DAILYCM ROBERT Stop: 04/12/20 08:01 Trazodone HCl (Desyrel) 100 mg PO QHS PRN PRN Reason: INSOMNIA STROKE Vital Signs/Narrative: Vital Signs Temp Pulse Resp BP Pulse Ox 04/09/20 07:37 99.2 F H 107 H 16 130/98 H 97 04/09/20 05:31 98.8 F 85 18 131/88 H 99 Medical Necessity - Tobacco Use Smoking Status: Current every day smoker Tobacco Use: Pipe Assessment/Plan All Active Problems (Last Reviewed 04/08/20 @ 17:[address] Simran Carranza, DO) Anemia (Acute) Hypokalemia (Acute) Hypoxia (Acute) Alcohol withdrawal (Acute) Patient is a 49-year-old gentleman admitted with acute alcohol withdrawal 1. Acute alcohol withdrawal patient was admitted to a nursing floor for medical stabilization using phenobarbital 2. Hypokalemia ?Corrected per protocol 3. Thrombocytopenia -chronic secondary to his chronic alcohol use 4. Chronic liver disease secondary to patient's chronic alcohol abuse. Elevated dictation admission currently monitoring 5. Depression with anxiety -Not on any medications 6. Tobacco dependence - Counseled on cessation, offered nicotine patch for tobacco cravings 7. Physical deconditioning - Requested for PT OT eval and psychiatric social worker to assist with discharge planning 8. DVT prophylaxis chemoprophylaxis contraindicated in view of his significant low platelet level Inpatient E&M: 20820 [facility] Hosp L2
[2020-04-09] MEDS: Folic Acid 1 MG Tablet PO (07:44)
[2020-04-09] MEDS: Multivitamins,Ther W-Minerals Tablet 1 TABLET PO (07:44)
[2020-04-09] MEDS: Thiamine Hydrochloride 100 MG Tablet 200 MG PO (07:44)
[2020-04-09 07:47] VITALS: O2SAT 98
--- NOTE | 2020-04-09 09:01 | CASEMGMT ---
Social Work Note Pt is RAMP pt. SW placed a call to Fifi at [facility] and updated her that pt will need to be seen. Willow Leung SENIOR STRATEGY MANAGER, [employer]
[2020-04-09 09:38] LABS: AST(SGOT) 56 U/L (15-37); Alanine Aminotransfer ALT/SGPT 34 U/L (16-61); Albumin, Serum 3.4 g/dL (3.2-5.0); Alkaline Phosphatase 74 U/L (45-117); Anion Gap 10 (5-15); BUN 12 mg/dL (7-18); Bilirubin, Direct 0.38 mg/dL (0.00-0.30); Calcium,Total 8.4 mg/dL (8.5-10.1); Chloride 95 mmol/L (98-107); Creatinine, Serum 0.71 mg/dL (0.70-1.30); EST Glomerular Filtration Rate 125 mL/min (>60); Est Glom Filt Rate - Afr Amer 151 mL/min (>60); Estimated Creatinine Clearance 123.61 ml/min; Globulin 4.1 g/dL (2.2-4.2); Glucose 132 mg/dL (74-106); Magnesium 1.5 mg/dL (1.6-2.6); Potassium 3.3 mmol/L (3.5-5.1); Protein, Total 7.5 g/dL (6.4-8.2); Sodium Level 133 mmol/L (136-145)
[2020-04-09 10:42] VITALS: BP 124/89; PULSE 86; RESP 16; TEMP 37.4; O2SAT 97
[2020-04-09 14:46] VITALS: BP 119/90; PULSE 104; RESP 16; TEMP 37.2; O2SAT 99
--- NOTE | 2020-04-09 15:20 | NURSING ---
pt left ama
--- NOTE | 2020-04-09 15:23 | CASEMGMT ---
Social Work Note Cherrie from [facility] updated this worker that she completed pt's assessment, will fax assessment over later and pt stated that he doesn't need treatment at this time for substance use/abuse. Willow Leung DIRECTOR OF THERAPY SERVICES, [employer]ER
--- NOTE | 2020-04-09 15:28 | PCM.DC.SUM ---
Discharge Date and Diagnosis Date of Admission: 04/08/20 Date of Discharge: 04/09/20 - Primary Discharge Diagnosis Acute Problems: Acute alcohol withdrawal - Secondary Discharge Diagnosis Chronic Problems: Chronic Problems (Last Reviewed 04/08/20 @ 17:[address] Simran Carranza, DO) Alcohol abuse (Chronic) Anxiety (Chronic) Thrombocytopenia (Chronic) Hypokalemia (Chronic) Arthritis of left hip (Chronic) Tobacco dependency (Chronic) Hospital Course and Treatment Operations: None Summary of Care Provided: Patient is a 49-year-old gentleman admitted with acute alcohol withdrawal 1. Acute alcohol withdrawal patient was admitted to a nursing floor for medical stabilization using phenobarbital 2. Hypokalemia ?Corrected per protocol 3. Thrombocytopenia -chronic secondary to his chronic alcohol use 4. Chronic liver disease -secondary to patient's chronic alcohol abuse. 5. Depression with anxiety -Not on any medications 6. Tobacco dependence - Counseled on cessation, offered nicotine patch for tobacco cravings 7. Physical deconditioning - Requested for PT OT eval and social media content specialist to assist with discharge planning 8. DVT prophylaxis chemoprophylaxis contraindicated in view of his significant low platelet level Patient elected to sign out AGAINST MEDICAL ADVICE attempt made for patient to rescind his decision proved futile - Physical Exam Vitals/I&O's: Vital Signs Temp Pulse Resp BP Pulse Ox 98.9 F 104 H 16 119/90 H 99 04/09/20 14:46 04/09/20 14:46 04/09/20 14:46 04/09/20 14:46 04/09/20 14:46 Oxygen Delivery Method Room Air Weight: 71 kg Body Mass Index (BMI) 19.5 Finger Stick Blood Glucose 120 Intake and Output for Last 24 Hours 04/07/20 04/08/20 04/09/20 23:59 23:59 23:59 Intake Total 1000 / 1300 1950 / 1950 Output Total 575 / 575 Balance 1000 / 1025 1375 / 1375 Laboratory Results 04/08/20 16:55: Urine Opiates Screen NEGATIVE, Urine Methadone Screen NEGATIVE, Ur Barbiturates Screen NEGATIVE, Ur Phencyclidine Scrn NEGATIVE, Ur Amphetamines Screen NEGATIVE, U Methamphetamin-MDMA NEGATIVE, U Benzodiazepines Scrn NEGATIVE, Urine Cocaine Screen NEGATIVE, U Cannabinoids Screen NEGATIVE, Ur Drug Screen Comment 04/09/20 06:28: Sodium 133 L, Potassium 3.3 L, Chloride 95 L, Carbon Dioxide 28.0, Anion Gap 10, BUN 12, Creatinine 0.71, Estim Creat Clear Calc 123.61, Est GFR (MDRD) Af Amer 151, Est GFR (MDRD) Non-Af 125, BUN/Creatinine Ratio 17.0, Glucose 132 H, Calcium 8.4 L, Magnesium 1.5 L, Total Bilirubin 1.20 H, Direct Bilirubin 0.38 H, AST 56 H, ALT 34, Alkaline Phosphatase 74, Total Protein 7.5, Albumin 3.4, Globulin 4.1 04/09/20 06:28: WBC 5.7, RBC 3.81 L, Hgb 13.1, Hct 37.9 L, MCV 99.5 H, MCH 34.4 H, MCHC 34.6, RDW Std Deviation 47.4 H, RDW Coeff of Isabel 13.2, Plt Count 80 L, MPV 10.1, Immature Gran % (Auto) 0.400, Neut % (Auto) 64.3, Lymph % (Auto) 23.8, [place] % (Auto) 5.1, Eos % (Auto) 6.0 H, Baso % (Auto) 0.4, Absolute Neuts (auto) 3.7, Absolute Lymphs (auto) 1.35, Nucleated RBC % 0 04/09/20 06:28: Phosphorus 2.7 Discharge Diet: No Restrictions Home Medications: Medications to take at Discharge Multivit-Min/FA/Lycopen/Lutein [Centrum Silver Men Tablet] 1 tab PO DAILY 04/08/20 Naproxen Sodium [Aleve] 220 mg PO DAILY PRN PRN 04/08/20 Primary Care Physician: Elmer Bolton MD [Primary Care Provider] - Disposition: Against Medical Advice Minutes spent on discharge:: 35 Patient Condition:: Stable Medical Necessity - Tobacco Use Smoking Status: Current every day smoker Tobacco Use: Pipe Meaningful Use Info Meaningful Use Diagnoses (Choose all that apply): None applicable Inpatient E&M: 29583 Disch Hosp
== END 2020-04-09 15:21 | disposition left against medical advice (07) | DRG 770 ==
LOC: ED 16:28 → MS3 16:45
PROVIDERS: Admitting Provider Internal Medicine; Emergency Provider Emergency Medicine; PCP Family Medicine; Visit Provider Internal Medicine
DX: F10.239 Alcohol dependence with withdrawal, unspecified (principal); F10.288 Alcohol dependence with other alcohol-induced disorder; K70.9 Alcoholic liver disease, unspecified; Y90.0 Blood alcohol level of less than 20 mg/100 ml; E87.6 Hypokalemia; R09.02 Hypoxemia; D64.9 Anemia, unspecified; D69.6 Thrombocytopenia, unspecified; M16.12 Unilateral primary osteoarthritis, left hip; F17.290 Nicotine dependence, other tobacco product, uncomplicated; Z86.69 Personal history of other diseases of the nervous system and sense organs
CPT/HCPCS: 36415; 80048; 80076; 80307; 80320; 83735; 84100; 85025; 85610; 85730; 93005; 97161; 97802; 99251; 99285; 99406; J7030; A4216; G0463; G0480; J2405

== ENCOUNTER 2020-04-30 03:42 | Emergency (ER) | payer MEDICAID, SELFPAY ==
[2020-04-08 18:11] VITALS: BMI 19.5
[2020-04-30 03:43] VITALS: BP 137/114; PULSE 107; RESP 16; TEMP 36.4; O2SAT 97; BMI 19.3
--- NOTE | 2020-04-30 03:49 | ED.DCSUM_ITS ---
- ER Visit Summary Date of Service: 04/30/20 Chief Complaint: Nausea and vomiting, left shoulder pain History of Present Illness: The patient is a 49 M who states he has had nausea vomiting for the past couple of weeks. He states he has been vomiting almost every day. He denies any blood or coffee-ground emesis. No abdominal pain with this. He denies diarrhea or constipation. No urinary symptoms. He took nothing for symptoms at home. Patient admits to some left shoulder pain as well. He had a fall about a month ago. His pain is been worse over the past 2 weeks. He did follow-up with orthopedics who did note an AC separation. He was to return if his pain worsened or the bump on his left shoulder got worse. He denies any fevers or cough. He also admits that he does feel depressed because he is alone and he is . He is on no antidepressants. He denies being suicidal or homicidal. Physical Examination: Vital signs reviewed. HEENT exam unremarkable. Heart is regular rate and rhythm without murmurs. Lungs are clear to auscultation. Abdomen is soft and nontender. Extremities reveal no edema. Left shoulder exam reveals tenderness over the left AC joint. There is a bump noted, likely from the previously known AC separation. Skin exam normal. Neurologic exam normal. Test Results: Laboratory studies show a platelet count of 39 which is chronic. Sodium 134, chloride 95. Creatinine normal. ALT 101, AST 202. Emergency Department Course and Treatment: The patient was given IV fluids and Zofran. He feels improved after these medications. The patient tells me that he feels depressed and lonely. He is and lives alone. I asked him multiple times about being suicidal and he denies this. I do not feel he needs emergent psychiatric consultation at this time. I will give him outpatient resources. His platelet count has been low in the past. It was documented that is likely due to myelosuppression from his chronic alcohol use. This is likely the same reason his liver enzymes are elevated. Patient will also be given addiction resources as an outpatient as well. I will give him Zofran for the nausea. I reviewed his last orthopedic visit. He did not do the physical therapy that was recommended. I recommended that he follow-up with Dr. Ortiz can discuss further options for his left AC separation pain. Treatment Plan: [] Disposition: Discharge Impression: Nausea, left AC separation, subsequent visit, depression This note was generated with [employer] dictation software. It may contain incorrect words, spelling, and punctuation that were not noted in review of the chart prior to signing ED Disposition - Plan for ED Patient: Disposition: Home or Assisted Living Instructions: ED Diet for Vomiting or Diarrhea Adult Prescriptions: Ondansetron [Zofran Odt] 8 mg PO Q8H PRN PRN #20 tab PRN Reason: Nausea Transmission Status: Pending to [facility]30 Referrals: Elmer Bolton MD [Primary Care Provider] -
[2020-04-30] MEDS: Ondansetron 4 MG/2 ML Vial IV (04:00)
[2020-04-30] MEDS: 0.9% Normal Saline 1,000 ML 1000 ML IV (04:00)
[2020-04-30 04:13] LABS: Absolute Lymphocyte Count 1.93 X10^3/uL (0.83-4.51); Absolute Neutrophil Count 2.8 X10^3/uL (2.0-7.7); Basophil# 0.05 X10^3/uL; Basophil% 0.9 % (0-1); Eosinophils% 1.9 % (0-5); Hematocrit 39.2 % (40-54); Hemoglobin 13.8 g/dL (13.0-16.5); Lymphocyte # 1.93 X10^3/ul (4.0); Lymphocyte % 36.3 % (19-41); Mean Corp Hgb Conc 35.2 g/dL (32-36); Mean Corpuscular Hgb 34.8 pg (27.0-32.0); Mean Corpuscular Volume 98.7 fL (80-94); Mean Platelet Vol. 10.5 fl (6.2-12.0); Monocyte# 0.42 X10^3/uL; Monocyte% 7.9 % (0-10); NRBC Flagged by Analyzer 0 % (0-5); Neutrophil # 2.79 X10^3/uL (2.7-7.7); Neutrophil % 52.6 % (47-70); POSITIVE COUNT YES; RBC Distribution Width CV 13.2 % (11.6-14.6); RBC Distribution Width SD 47.7 fl (35.1-43.9); Red Blood Count 3.97 M/mm3 (4.6-6.2); White Blood Count 5.3 K/mm3 (4.4-11.0)
[2020-04-30 04:20] LABS: Platelet Count 39 K/mm3 (150-450)
[2020-04-30 04:21] LABS: Differential Indicated SCAN CRITERIA MET
[2020-04-30 04:25] LABS: AST(SGOT) 202 U/L (15-37); Alanine Aminotransfer ALT/SGPT 101 U/L (16-61); Albumin, Serum 4.2 g/dL (3.2-5.0); Alkaline Phosphatase 73 U/L (45-117); Anion Gap 15 (5-15); BUN 9 mg/dL (7-18); BUN/Creat Ratio 12.3 RATIO (10-20); Calcium,Total 8.4 mg/dL (8.5-10.1); Chloride 95 mmol/L (98-107); Creatinine, Serum 0.73 mg/dL (0.70-1.30); EST Glomerular Filtration Rate 120 mL/min (>60); Est Glom Filt Rate - Afr Amer 145 mL/min (>60); Estimated Creatinine Clearance 118.87 ml/min; Globulin 4.3 g/dL (2.2-4.2); Glucose 79 mg/dL (74-106); Lipase 260 U/L (73-393); Potassium 3.9 mmol/L (3.5-5.1); Protein, Total 8.5 g/dL (6.4-8.2); Sodium Level 134 mmol/L (136-145)
[2020-04-30 04:42] LABS: Differential Comment SCANNED
[2020-04-30 04:43] LABS: Platelet Morphology LARGE
[2020-04-30 04:45] LABS: Platelet Estimate MOD DEC (ADEQ)
[2020-04-30 05:24] VITALS: RESP 16
[2020-04-30 12:13] LABS: Pathologist Review Reviewed
== END 2020-04-30 06:48 | disposition home or self-care (01) ==
PROVIDERS: Emergency Provider Emergency Medicine; PCP Family Medicine
DX: R11.2 Nausea with vomiting, unspecified (principal); F32.9 Major depressive disorder, single episode, unspecified; S43.102D Unspecified dislocation of left acromioclavicular joint, subsequent encounter; W19.XXXD Unspecified fall, subsequent encounter; Z72.0 Tobacco use
CPT/HCPCS: 80053; 83690; 85025; 96361; 96374; 99285; J7030; A4216; J2405

== ENCOUNTER 2020-06-16 17:15 | Emergency (ER) | payer MEDICAID, SELFPAY ==
[2020-06-16 17:18] VITALS: BP 160/100; PULSE 118; RESP 16; TEMP 37.6; O2SAT 93; BMI 21.6
--- NOTE | 2020-06-16 17:30 | CT_ITS ---
We are attempting to reach an attending provider to discuss findings. An addendum with communication details will be sent when the communication is complete. STUDY: CT BRAIN WITHOUT CONTRAST REASON FOR EXAM: Male, 49 years old. FALL,FOUND ON HIS PORCH NOT ACTING RIGHT,DOESN''T REMEMBER WHAT HAPPENED -- HX:HTN RADIATION DOSAGE (If Supplied By Facility): CTDIvol = ( 44.99 ) mGy, DLP = ( 846.73 ) mGycm TECHNIQUE: Transaxial CT imaging of the brain was performed without administration of intravenous contrast material. Individualized dose optimization techniques were used for this CT. COMPARISON: No relevant priors. FINDINGS: Normal soft tissue structures. Normal calvarium. Mild atrophy and periventricular white matter ischemic changes.. Normal basal ganglia and thalami. Normal brainstem. Normal cerebellum. Small subacute/acute right-sided subdural hematoma with effacement of cortical sulci no significant mass effect upon the lateral ventricles or midline shift.. There are no findings of an acute ischemic infarction. Normal visualized paranasal sinuses. CT/Brain/Head without Contrast IMPRESSION: Small mixed acute/subacute right-sided subdural hematoma without significant mass effect or midline shift. Mild cortical atrophy and periventricular white matter ischemic changes Electronically Signed: Fito Mckay MD at 18:17 EDT , Service support ,
--- NOTE | 2020-06-16 17:30 | EKG12_ITS ---
Test Reason : SYNCOPE Blood Pressure : / mmHG Vent. Rate : 108 BPM Atrial Rate : 108 BPM P-R Int : 156 ms QRS Dur : 082 ms QT Int : 366 ms P-R-T Axes : 051 -20 062 degrees QTc Int : 490 ms Sinus tachycardia Possible Inferior infarct , age undetermined Abnormal ECG Confirmed by SRIKANTH PRICE, DONAVAN ([id number]), deputy editor in chief HANNA COLLINS ([id number]) on 06/19/2020 1:27:33 PM Referred By: SUSAN Confirmed By:GWENDOLYN DUKE MD
[2020-06-16] MEDS: 0.9% Normal Saline 1,000 ML 1000 ML IV (17:52)
[2020-06-16 17:59] LABS: Absolute Lymphocyte Count 0.92 X10^3/uL (0.83-4.51); Absolute Neutrophil Count 2.7 X10^3/uL (2.0-7.7); Basophil# 0.06 X10^3/uL; Basophil% 1.4 % (0-1); Eosinophils% 2.3 % (0-5); Hematocrit 38.5 % (40-54); Hemoglobin 13.2 g/dL (13.0-16.5); Lymphocyte # 0.92 X10^3/ul (4.0); Lymphocyte % 21.4 % (19-41); Mean Corp Hgb Conc 34.3 g/dL (32-36); Mean Corpuscular Hgb 33.7 pg (27.0-32.0); Mean Corpuscular Volume 98.2 fL (80-94); Mean Platelet Vol. 9.6 fl (6.2-12.0); Monocyte# 0.48 X10^3/uL; Monocyte% 11.2 % (0-10); NRBC Flagged by Analyzer 0 % (0-5); Neutrophil # 2.72 X10^3/uL (2.7-7.7); Neutrophil % 63.5 % (47-70); POSITIVE COUNT YES; RBC Distribution Width CV 13.3 % (11.6-14.6); RBC Distribution Width SD 47.2 fl (35.1-43.9); Red Blood Count 3.92 M/mm3 (4.6-6.2); White Blood Count 4.3 K/mm3 (4.4-11.0)
--- NOTE | 2020-06-16 17:59 | ED.DCSUM_ITS ---
- ER Visit Summary Date of Service: 06/16/20 Chief Complaint: Altered mental status History of Present Illness: The patient is a 49 M presenting with altered mental status. Patient was found on his porch by a neighbor not acting right. Patient does not recall this event. He does not recall the events of today. He is now alert and oriented x3. He has a history of alcohol abuse. He does not recall if he was drinking today. He denies chest pain or shortness of breath. Denies recent fever or cough. Denies other complaints. Physical Examination: Vitals are stable. Blood pressure 160/100. Temperature 99.7. Alert no acute distress. HEENT exam is unremarkable. No evidence of head trauma Neck is nontender Lungs are clear and equal bilaterally. Heart is regular and tachycardic Abdomen is soft nontender nondistended. Extremities are unremarkable. Skin is warm and dry. No focal neurologic deficit. Alert and oriented x3 Remainder of exam is unremarkable. Emergency Department Course and Treatment: EKG is sinus tachycardia rate of 108 with no acute ischemic changes. Patient was given IV fluids. CBC shows white count 4.3, platelet 36. Chemistries show potassium 2.7. Troponin is negative. Tox is negative. Alcohol 149. Chest x-ray shows no acute process. CT head shows small mixed acute/subacute right-sided subdural hematoma without significant mass effect or midline shift. Mild cortical atrophy and periventricular white matter ischemic changes. CT cervical spine shows normal unenhanced CT examination of the cervical spine. Discussed with [facility] for transfer. Disposition: Transfer [facility] Impression: Subdural hematoma This note was generated with [employer] dictation software. It may contain incorrect words, spelling, and punctuation that were not noted in review of the chart prior to signing ED Disposition - Plan for ED Patient: Referrals: Elmer Bolton MD [Primary Care Provider] -
--- NOTE | 2020-06-16 18:03 | RAD_ITS ---
STUDY: X-RAY CHEST REASON FOR EXAM: Male, 49 years old. sob, patient found on his porch by neighbor not acting right TECHNIQUE: Portable COMPARISON: None. FINDINGS: The lungs are clear and expanded. There is no demonstrated pleural abnormality. Normal size heart. Normal mediastinum and melisa. Normal visualized pulmonary arteries. Normal visualized aortic arch and descending thoracic aorta. Normal visualized thoracic spine. Normal visualized ribs, clavicles, and shoulders. There is no demonstrated abnormality of the visualized soft tissue structures of the upper abdomen. RAD/Chest 1 View (Portable) IMPRESSION: Normal x-ray examination of the chest. Electronically Signed: Fito Mckay MD at 18:23 EDT , Service support ,
[2020-06-16 18:14] LABS: Anion Gap 15 (5-15); BUN 8 mg/dL (7-18); BUN/Creat Ratio 12.3 RATIO (10-20); Calcium,Total 8.1 mg/dL (8.5-10.1); Chloride 99 mmol/L (98-107); Creatinine, Serum 0.65 mg/dL (0.70-1.30); EST Glomerular Filtration Rate 137 mL/min (>60); Est Glom Filt Rate - Afr Amer 166 mL/min (>60); Estimated Creatinine Clearance 137.68 ml/min; Glucose 95 mg/dL (74-106); Potassium 2.7 mmol/L (3.5-5.1); Sodium Level 140 mmol/L (136-145)
[2020-06-16 18:19] LABS: Differential Indicated SCAN CRITERIA MET; Platelet Count 36 K/mm3 (150-450)
[2020-06-16 18:42] LABS: Platelet Estimate MKD DEC (ADEQ)
--- NOTE | 2020-06-16 18:49 | CT_ITS ---
STUDY: CT CERVICAL SPINE WITHOUT CONTRAST REASON FOR EXAM: Male, 49 years old. FALL.FOUND ON HIS PORCH NOT ACTING RIGHT,MEMORY LOSS -- HX:HTN,INJURY SEEN ON CT BRAIN RADIATION DOSAGE (If Supplied By Facility): CTDIvol = ( 23.05 ) mGy, DLP = ( 449.26 ) mGycm TECHNIQUE: High resolution transaxial imaging was performed without contrast material. Sagittal and coronal images were reconstructed. Individualized dose optimization techniques were used for this CT. COMPARISON: None FINDINGS: Normal craniovertebral junction. Normal anterior atlantoaxial articulation. Normal odontoid process. Normal cervical lordosis. Normal vertebral bodies and posterior osseous elements. C2-3: Normal endplates. Normal disc height and morphology. Normal central canal and intervertebral neuroforamina. C3-4: Normal endplates. Normal disc height and morphology. Normal central canal and intervertebral neuroforamina. C4-5: Normal endplates. Normal disc height and morphology. Normal central canal and intervertebral neuroforamina. C5-6: Normal endplates. Normal disc height and morphology. Normal central canal and intervertebral neuroforamina. C6-7: Normal endplates. Normal disc height and morphology. Normal central canal and intervertebral neuroforamina. C7-T1: Normal endplates. Normal disc height and morphology. Normal central canal and intervertebral neuroforamina. Normal visualized soft tissue structures. CT/Spine Cervical without Contras IMPRESSION: Normal unenhanced CT examination of the cervical spine. Electronically Signed: Fito Mckay MD at 19:26 EDT , Service support ,
[2020-06-16 18:58] VITALS: BP 141/98; PULSE 90; RESP 16
[2020-06-16 19:00] LABS: Amphetamine Urine VISTA NEGATIVE (<1000 ng/mL); Barbiturate Urine VISTA NEGATIVE (< 200 ng/mL); Benzodiazepine Urine VISTA NEGATIVE (< 200 ng/mL); Cocaine Urine VISTA NEGATIVE (< 300 ng/mL); Ecstacy Urine VISTA NEGATIVE (< 500 ng/mL); Methadone Urine VISTA NEGATIVE (< 300 ng/mL); PCP Urine VISTA NEGATIVE (< 25 ng/mL); THC Urine VISTA NEGATIVE (< 50 ng/mL); Vista UDS pH Range 6
[2020-06-16] MEDS: LORazepam 2 MG/ML Syringe 1 MG IV (19:42)
[2020-06-16] MEDS: Ondansetron 4 MG/2 ML Vial IV (19:42)
[2020-06-19 09:32] LABS: Pathologist Review Reviewed
== END 2020-06-16 20:32 | disposition short-term general hospital (02) ==
LOC: ED 17:39
PROVIDERS: Emergency Provider Emergency Medicine; PCP Family Medicine
DX: S06.5X9A Traumatic subdural hemorrhage with loss of consciousness of unspecified duration, initial encounter (principal); F10.129 Alcohol abuse with intoxication, unspecified; Y90.9 Presence of alcohol in blood, level not specified; X58.XXXA Exposure to other specified factors, initial encounter; Y93.9 Activity, unspecified; Y92.9 Unspecified place or not applicable; F17.200 Nicotine dependence, unspecified, uncomplicated
CPT/HCPCS: 70450; 71045; 72125; 80048; 80307; 80320; 84484; 85025; 93005; 96361; 96374; 96375; 99285; J7030; A4216; G0480; J2405

== ENCOUNTER 2020-10-20 12:50 | Inpatient (IN) | payer MEDICAID, SELFPAY ==
[2020-10-20] VITALS (14 sets, daily range): BP systolic 117–153; BP diastolic 79–100; PULSE 104–137; RESP 9–20; TEMP 36.4–37.3; O2SAT 97–99; BMI 23.1; BMI 19.2
--- NOTE | 2020-10-20 13:21 | ED.VIS.GEN ---
History of Present Illness Chief Complaint: General Illness Informant: Patient Narrative: 50-year-old male presenting with body aches, cough, dyspnea. He states this is day 4 of his symptoms. He has not had a fever. He does not have change in taste or smell. Patient does state that he has had a lot of nausea/vomiting over the past few days. He is not able to hold down food but states he was able to hold down alcohol. Patient states he drinks anywhere from 6-8 beers a day and 1/5 of vodka per day. He has been through detox before. He states that he usually gets withdrawal symptoms if he does stop drinking. He has history of withdrawal seizure as well. Patient states he drank a martini before coming to the ER today. He is having some epigastric pain but denies history of pancreatitis. - Past Medical History (1) Alcohol withdrawal Status: Chronic (2) Alcohol abuse Status: Chronic (3) Anxiety Status: Chronic Past Medical History - Allergies and Home Meds Allergies/Adverse Reactions: Allergies diphenhydramine HCl [From Benadryl] Adverse Reaction (Verified 10/20/20 12:53) Swelling mushroom Adverse Reaction (Verified 10/20/20 12:53) Vomiting Primary Care Physician: Elmer Bolton MD [Primary Care Provider] - Prior records reviewed: Yes Past Medical History: - - Reviewed in problem list Surgical History: noncontributory, tonsillectomy Lives: Alone Smoking Status: Current every day smoker Alcohol: Heavy Drugs: None - Family History Sibling Family History: Reports: No pertinent history Maternal Family History: Reports: Hypertension Paternal Family History: Reports: No pertinent history Review of Systems General: Reports: Malaise. Denies: Chills, Fever Eyes: Denies: Visual changes - bilaterally, Diplopia ENT: Denies: Rhinorrhea, Sore throat Cardiovascular: Reports: Palpitations, Heart racing. Denies: Chest pain Respiratory: Reports: Dyspnea, Cough Gastrointestinal: Reports: Abdominal pain, Nausea, Vomiting. Denies: Diarrhea Genitourinary: Denies: Dysuria, Hematuria Musculoskeletal: Reports: Myalgias. Denies: Arthralgias Skin: Reports: Rash. Denies: Abscess Neurological: Reports: Headache. Denies: Parasthesia, Numbness Psych: Denies: Depression, Anxiety Physical Exam Vital Signs/Narrative: Vital Signs Temp Pulse Resp BP Pulse Ox 10/20/20 13:20 97.7 F L 111 H 13 145/98 H 99 10/20/20 12:51 97.7 F L 137 H 20 H 117/80 99 Inital Vital Signs reviewed: Yes General: Well nourished, No Acute Distress Head: Normocephalic, Atraumatic Eyes: Perrl, EOMI. Negative for: Scleral icterus ENT: Moist mucous membranes, No rhinorrhea Cardiovascular: Regular rhythm, Tachycardia Respiratory: No distress, CTA bilaterally Abdomen: Soft, Nondistended, Tender - Gastric tenderness to palpation. Extremities: Nontender, No edema Skin: Normal color, No rash. Negative for: Cyanosis, Diaphoresis Neurological: Alert, Oriented x3, Cranial nerves II-XII grossly intact Psychological: Normal affect, Normal Mood Diagnostic/Tx/Re-eval Clinical Impression(s) from Imaging Studies Chest CTA 10/20/20 14:19 IMPRESSION: Normal CTA chest examination, without a demonstrated pulmonary embolism or arterial dissection. Diffuse fatty infiltration of the liver. Electronically Signed: Saeed Gan, at 15:06 EST , Service support , Laboratory Data 10/20/20 10/20/20 10/20/20 13:40 13:40 13:40 WBC 6.3 RBC 4.30 L Hgb 14.5 Hct 41.9 MCV 97.4 H MCH 33.7 H MCHC 34.6 RDW Std Deviation 45.6 H RDW Coeff of Isabel 12.8 Plt Count 43 L* MPV 11.3 Immature Gran % (Auto) 0.500 Neut % (Auto) 68.6 Lymph % (Auto) 18.2 L [place] % (Auto) 10.6 H Eos % (Auto) 1.0 Baso % (Auto) 1.1 H Absolute Neuts (auto) 4.3 Absolute Lymphs (auto) 1.14 Nucleated RBC % 0 Diff Path Review May foll D-Dimer Quant (PE/DVT) 2.41 H* Sodium 134 L Potassium 3.0 L Chloride 89 L Carbon Dioxide 21.0 Anion Gap 24 H BUN 25 H Creatinine 1.26 Estim Creat Clear Calc 79.20 Est GFR (MDRD) Af Amer 77 Est GFR (MDRD) Non-Af 64 BUN/Creatinine Ratio 19.8 Glucose 73 L Calcium 9.4 Magnesium 1.7 Total Bilirubin 1.50 H AST 329 H ALT 102 H Alkaline Phosphatase 76 Troponin I < 0.015 Total Protein 10.0 H Albumin 4.9 Globulin 5.1 H Albumin/Globulin Ratio 1.0 Lipase 292 Ethyl Alcohol COVID-19 (ERIKA) 10/20/20 10/20/20 13:44 14:05 WBC RBC Hgb Hct MCV MCH MCHC RDW Std Deviation RDW Coeff of Isabel Plt Count MPV Immature Gran % (Auto) Neut % (Auto) Lymph % (Auto) [place] % (Auto) Eos % (Auto) Baso % (Auto) Absolute Neuts (auto) Absolute Lymphs (auto) Nucleated RBC % Diff Path Review D-Dimer Quant (PE/DVT) Sodium Potassium Chloride Carbon Dioxide Anion Gap BUN Creatinine Estim Creat Clear Calc Est GFR (MDRD) Af Amer Est GFR (MDRD) Non-Af BUN/Creatinine Ratio Glucose Calcium Magnesium Total Bilirubin AST ALT Alkaline Phosphatase Troponin I Total Protein Albumin Globulin Albumin/Globulin Ratio Lipase Ethyl Alcohol 143.0 COVID-19 (ERIKA) Negative - Rhythm Strip Rhythm Strip: Sinus Tach Rate: 110 - EKG Initial EKG Interpretation: No Acute Injury Pattern, Sinus Tachycardia - Medical Decision Making 50-year-old male presenting for evaluation of cough, shortness of breath, body aches, nausea/vomiting. He states this is been going on for about 3-1/2 days. He states he has not had a fever. He denies any exposure to Covid?19. Patient was unable to tolerate oral food but was able to tolerate drinking alcohol. Patient does state that he drinks anywhere from 6-8 beers a day as well as 1/5 of vodka. Patient states he drank a martini prior to coming into the ER. Patient's vital signs are stable other than being slightly tachycardic. He is given IV fluids, Ativan, Zofran. His lab work shows that he is leukopenic and thrombocytopenic. His platelets appear to have a wide range but he has been this low before. Troponin is negative. Patient's LFTs are slightly bumped. Lipase is normal. EKG performed on arrival showed a sinus tachycardia at 110 bpm without signs of ischemic change as interpreted by myself. CT of the chest shows no acute process. Patient is noted to have 3.0 potassium and was given 40 mEq p.o. His magnesium was normal. Patient did test negative for Covid?19. Patient wishes to be admitted for alcohol detox. Patient is medically stable at this time. Impression: 1. Viral syndrome 2. Hypokalemia 3. EtOH withdrawal 4. Thrombocytopenia ED Disposition - Plan for ED Patient: Referrals: Elmer Bolton MD [Primary Care Provider] -
--- NOTE | 2020-10-20 13:49 | EKG12_ITS ---
Test Reason : RAPID HR Blood Pressure : / mmHG Vent. Rate : 110 BPM Atrial Rate : 110 BPM P-R Int : 138 ms QRS Dur : 074 ms QT Int : 338 ms P-R-T Axes : 069 -34 044 degrees QTc Int : 457 ms Sinus tachycardia Left axis deviation Possible Inferior infarct (cited on or before 16-JUN-2020) Abnormal ECG Confirmed by NOAM PRICE, JACQUELINE ([id number]), mapping editor PRABHU NGUYEN ([id number]) on 10/22/2020 11:30:50 AM Referred By: BEE Confirmed By:JACQUELINE SANTACRUZ MD
[2020-10-20 14:02] LABS: Absolute Lymphocyte Count 1.14 X10^3/uL (0.83-4.51); Absolute Neutrophil Count 4.3 X10^3/uL (2.0-7.7); Basophil# 0.07 X10^3/uL; Basophil% 1.1 % (0-1); Eosinophil# 0.06 X10^3/uL; Hematocrit 41.9 % (40-54); Hemoglobin 14.5 g/dL (13.0-16.5); Lymphocyte # 1.14 X10^3/ul (4.0); Lymphocyte % 18.2 % (19-41); Mean Corp Hgb Conc 34.6 g/dL (32-36); Mean Corpuscular Hgb 33.7 pg (27.0-32.0); Mean Corpuscular Volume 97.4 fL (80-94); Mean Platelet Vol. 11.3 fl (6.2-12.0); Monocyte# 0.66 X10^3/uL; Monocyte% 10.6 % (0-10); NRBC Flagged by Analyzer 0 % (0-5); Neutrophil # 4.29 X10^3/uL (2.7-7.7); Neutrophil % 68.6 % (47-70); POSITIVE COUNT YES; Platelet Count 43 K/mm3 (150-450); RBC Distribution Width CV 12.8 % (11.6-14.6); RBC Distribution Width SD 45.6 fl (35.1-43.9); White Blood Count 6.3 K/mm3 (4.4-11.0)
[2020-10-20] MEDS: Ondansetron 4 MG/2 ML Vial IV (14:08)
[2020-10-20 14:12] LABS: D-Dimer Quantitative (DVT/PE) 2.41 FEU/ug/m (0.27-0.49)
[2020-10-20 14:15] LABS: AST(SGOT) 329 U/L (15-37); Alanine Aminotransfer ALT/SGPT 102 U/L (16-61); Albumin, Serum 4.9 g/dL (3.2-5.0); Alkaline Phosphatase 76 U/L (45-117); Anion Gap 24 (5-15); BUN 25 mg/dL (7-18); BUN/Creat Ratio 19.8 RATIO (10-20); Calcium,Total 9.4 mg/dL (8.5-10.1); Chloride 89 mmol/L (98-107); Creatinine, Serum 1.26 mg/dL (0.70-1.30); EST Glomerular Filtration Rate 64 mL/min (>60); Est Glom Filt Rate - Afr Amer 77 mL/min (>60); Globulin 5.1 g/dL (2.2-4.2); Glucose 73 mg/dL (74-106); Lipase 292 U/L (73-393); Magnesium 1.7 mg/dL (1.6-2.6); Sodium Level 134 mmol/L (136-145)
--- NOTE | 2020-10-20 14:19 | CT_ITS ---
STUDY: CTA CHEST REASON FOR EXAM: Male, 50 years old. SOB RADIATION DOSAGE (If Supplied By Facility): CTDIvol = ( 5.79 ) mGy, DLP = ( 197.79 ) mGycm TECHNIQUE: The examination was performed with the intravenous administration of 100 ML ISOVUE 370. Post-processing of the angiographic images was performed, with multiplanar reformation and 3D reconstruction. Individualized dose optimization techniques were used for this CT. COMPARISON: None. FINDINGS: Normal enhancement of the main pulmonary artery and right and left pulmonary arteries. Normal enhancement of the bilateral peripheral pulmonary arteries. There is no demonstrated pulmonary embolism. Normal thoracic aorta and visualized great vessels. There is no demonstrated aortic dissection. Normal heart and pericardium. Normal mediastinum. Normal hilar regions. Normal visualized trachea and bronchi. The lungs are well expanded. Normal pulmonary parenchyma. Normal pleura. Normal chest wall structures. There are mild degenerative changes of thoracic spine. Diffuse fatty infiltration of the liver. Small sliding hiatal hernia. CT/CTA Chest W/WO Contrast IMPRESSION: Normal CTA chest examination, without a demonstrated pulmonary embolism or arterial dissection. Diffuse fatty infiltration of the liver. Electronically Signed: Saeed Gan, at 15:06 EST , Service support ,
[2020-10-20] MEDS: LORazepam 2 MG/ML Syringe 1 MG IV (14:29)
[2020-10-20 14:48] LABS: Probe Check PASS; Specimen Processing Control PASS
--- NOTE | 2020-10-20 15:09 | HP.PCM_ITS ---
Problem List (1) Suspected COVID-19 virus infection Status: Acute (2) Hypokalemia Status: Acute (3) Alcohol withdrawal Status: Acute Qualifiers: Complication of substance-induced condition: with unspecified complication Qualified Code(s): F10.239 - Alcohol dependence with withdrawal, unspecified (4) Thrombocytopenia Status: Chronic (5) Tobacco dependency Status: Chronic (6) Elevated LFTs Status: Chronic (7) GERD (gastroesophageal reflux disease) Status: Chronic Qualifiers: Esophagitis presence: esophagitis presence not specified Qualified Code(s): K21.9 - Gastro-esophageal reflux disease without esophagitis History of Present Illness Date of Admission: 10/20/20 Chief Complaint: Fatigue, malaise, N/V, Cough, Dsypnea The patient is a 50 y/o M w/ PMHx: EtOH Abuse (6-8 beers specifically tall boys daily and 1/5th vodka daily) with Hx DT seizures, Chronic thrombocytopenia, Tobacco use, Chronic COPD, Anxiety and Depression who presents to the [facility] ED on 10/20/20 with history of 4 days of fatigue, malaise, severe throbbing frontal headaches, severe body aches, cough and dyspnea noted to be worse with exertion, diaphoresis with chills but no specific fever as well as nausea, emesis, generalized abdominal cramping without any diarrhea with no alteration to his sense of taste or smell with inability to keep food down however he has been able to continue alcoholic intake although lessened recently secondary to his recent symptoms with last alcohol intake noted to be a martini prior to ED presentation. Patient denies any fevers or alteration to his sense of taste and smell. Work-up in the ED included T 97.7, heart rate 137, BP 117/80, respiratory rate 20, 99% room air, CBC with WC 6.3, hemoglobin 14.5, platelet 43 with no significant left shift, D-dimer 2.41, CMP with sodium 134, potassium 3.0, chloride 89, anion gap 24, BUN/creatinine 25/1.26, glucose 73, magnesium 1.7, total bilirubin 1.50, AST/ALT 329/102, alk phos 76, troponin less than 0.015, lipase 292, blood culture x2 pending per ED, lactic acid pending at requested evaluation, COVID-19 PCR negative, ethyl alcohol level 143, CTPA with no acute evidence of pulmonary emboli or arterial dissection with diffuse fatty infiltration of the liver, EKG sinus tachycardia with no acute evidence of ischemia. In the ED patient ministered normal saline, potassium 40 mill equivalent p.o. x1, Zofran as well as 1 mg Ativan IV x1. Past Medical History Past Medical History (Chronic Problems): Chronic Problems (Last Reviewed 04/08/20 @ 17:[address] Simran Carranza DO) Elevated LFTs (Chronic) GERD (gastroesophageal reflux disease) (Chronic) Alcohol abuse (Chronic) Anxiety (Chronic) Thrombocytopenia (Chronic) Hypokalemia (Chronic) Arthritis of left hip (Chronic) Tobacco dependency (Chronic) Medical History: Medical History (Last Reviewed 04/08/20 @ 17:[address] iSmran Carranza DO) Hx of seizure disorder Z86.69 Allergies diphenhydramine HCl [From Benadryl] Adverse Reaction (Verified 10/20/20 12:53) Swelling mushroom Adverse Reaction (Verified 10/20/20 12:53) Vomiting Home Medications: Ambulatory Orders Medication Instructions Recorded NK 10/20/20 Surgical History: tonsillectomy Psychiatric History: No pertinent psych hx Lives: Alone Smoking Status: Current every day smoker - She smokes 1 pack/day cigarette tobacco usage since he was in his 40s. Tobacco Use: Cigarettes Alcohol: Heavy - Patient with ongoing 6-8 tall boys per day in addition to 1/5 of vodka, water down per his report daily. Drugs: None - *Family History Sibling History Items: - - Thyroid disease. Maternal History Items: Hypertension, - - Thyroid disease. Paternal History Items: Diabetes Review of Systems Constitutional: Reports: Anorexia, Chills, Malaise, Weakness, Fatigue, - - Diaphoresis.. Denies: Fever, Weight Change HEENT: Reports: Head Aches. Denies: Sinus Congestion, Sinus Drainage Cardiovascular: Denies: Chest Pain, Palpitations Respiratory: Reports: Cough, Pleuritic Pain, Shortness of Breath, Shortness of breath upon exertion. Denies: Shortness of breath at rest, Sputum production Gastrointestinal: Reports: Abdominal Pain, Nausea, Vomiting. Denies: Constipation, Diarrhea Genitourinary: Denies: Dysuria Musculoskeletal: Reports: Back Pain, Joint Pain, Leg Pain, Muscle pain. Denies: Joint Tenderness Skin: Denies: Rash, Wounds Neurological: Denies: Numbness, Tingling, Focal weakness Psychiatric: Denies: Anxiety, Depression, Homicidal Ideations, Suicidal Ideations Endocrine: Reports: Heat/ Cold Intolerance Hematologic/ Lymphatic: Reports: Easy Bruising, Easy Bleeding VTE Information - Inpt Only VTE Present on Admission: No VTE Mechan Device Prophylaxis: SCD's VTE Pharm Prophylaxis ordered?: No Reason prophylaxis not ordered:: Medical Contraindication Patient Problems: Active and Suspected Problems (Last Reviewed 04/08/20 @ 17:[address] Simran Carranza, DO) Suspected COVID-19 virus infection (Acute) Hypokalemia (Acute) Alcohol withdrawal (Acute) Subjective: Seated upright in ED bed, fatigued and ill-appearing. Objective: Physical Examination: General: awake, alert, oriented x 3 and cooperative, seated upright in the ED bed, fatigued and ill-appearing, intermittent coughing during exam, holding emesis bag which is full. Skin: normal color, turgor, no icterus, cyanosis. HEENT: AT/NC, EOMI, PERRLA, dry MM, no carotid bruits or JVD noted. Lungs: Diminished breath sounds, greater bases, moderate effort, no evidence of any distress, no rales, ronchi or wheezing. Heart: Tachycardic with regular rhythm; no gallop, rub audible. Abdomen: soft, neurolyse discomfort with no rebound or guarding including the epigastric region, nondistended, hyperactive bowel sounds, mild HM. Extremities: no cyanosis, clubbing, or edema. Neurological: patient awake, alert, oriented as noted; cognitive function appears intact; pupils equally reactive to light and accomodation; cranial nerves II-XII grossly normal, moving all 4 extremities, no focal deficits, strength severely globally decreased secondary to acute presentation and illness. Psychiatric: affect appears fatigued, ill-appearing, no acute evidence of depressive or anxiety feelings. - Physical Exam Vitals/I&O's: Vital Signs Temp Pulse Resp BP Pulse Ox 97.7 F L 104 H 9 L 132/97 H 99 10/20/20 14:06 10/20/20 14:06 10/20/20 14:06 10/20/20 14:06 10/20/20 14:06 Oxygen Delivery Method Room Air Weight: 180 lb Body Mass Index (BMI) 23.1 Finger Stick Blood Glucose 120 Intake and Output for Last 24 Hours 10/18/20 10/19/20 10/20/20 23:59 23:59 23:59 Intake Total 500 / 500 Balance 500 / 500 Laboratory Results 10/20/20 13:40: WBC 6.3, RBC 4.30 L, Hgb 14.5, Hct 41.9, MCV 97.4 H, MCH 33.7 H, MCHC 34.6, RDW Std Deviation 45.6 H, RDW Coeff of Isabel 12.8, Plt Count 43 L*, MPV 11.3, Immature Gran % (Auto) 0.500, Neut % (Auto) 68.6, Lymph % (Auto) 18.2 L, [place] % (Auto) 10.6 H, Eos % (Auto) 1.0, Baso % (Auto) 1.1 H, Absolute Neuts (auto) 4.3, Absolute Lymphs (auto) 1.14, Nucleated RBC % 0, Diff Path Review February10/20/20 13:40: D-Dimer Quant (PE/DVT) 2.41 H* 10/20/20 13:40: Sodium 134 L, Potassium 3.0 L, Chloride 89 L, Carbon Dioxide 21.0, Anion Gap 24 H, BUN 25 H, Creatinine 1.26, Estim Creat Clear Calc 79.20, Est GFR (MDRD) Af Amer 77, Est GFR (MDRD) Non-Af 64, BUN/Creatinine Ratio 19.8, Glucose 73 L, Calcium 9.4, Magnesium 1.7, Total Bilirubin 1.50 H, AST 329 H, ALT 102 H, Alkaline Phosphatase 76, Troponin I < 0.015, Total Protein 10.0 H, Albumin 4.9, Globulin 5.1 H, Albumin/Globulin Ratio 1.0, Lipase 292 10/20/20 13:44: COVID-19 (ERIKA) Negative 10/20/20 14:05: Lactic Acid Pending 10/20/20 14:05: Ethyl Alcohol 143.0 Assessment/Plan All Active Problems (Last Reviewed 04/08/20 @ 17:[address] Simran Carranza, DO) Anemia (Acute) Suspected COVID-19 virus infection (Acute) Hypokalemia (Acute) Hypoxia (Acute) Alcohol withdrawal (Acute) The patient is a 50 y/o M w/ PMHx: EtOH Abuse (6-8 beers specifically tall boys daily and 1/5th vodka daily) with Hx DT seizures, Chronic thrombocytopenia, Tobacco use, Chronic COPD, Anxiety and Depression who presents to the [facility] ED on 10/20/20 with history of 4 days of fatigue, malaise, severe throbbing frontal headaches, severe body aches, cough and dyspnea noted to be worse with exertion, diaphoresis with chills but no specific fever as well as nausea, emesis, generalized abdominal cramping without any diarrhea with no alteration to his sense of taste or smell with inability to keep food down. 1. Suspected Acute Viral Syndrome, COVID-19: Patient history and symptoms consistent with COVID-19 despite negative initial PCR testing, CTPA without significant findings but again only day #4 per his report. To be cautious will admit to the Covid unit, maintain on oxygen with wean as tolerated to room air, PRN albuterol, HOB, IS parameters w/ pending sputum cultures, respiratory viral panel and urine antigens, will obtain procalcitonin, CRP, CPK, Ferritin, LDH, continue supportive care including q 2 hour turning including prone given no prone bed availability and judicious hydration, consult Infectious disease, awaiting PT/PTT/INR given significant EtOH abuse history as noted, defer remdesivir decision to ID, not hypoxic thus will defer decadron, allow clears and ADAT. We will plan repeat lipase in AM. 2. Impending Acute EtOH Withdrawal: Will initiate and continue on protocol with taper course of Phenobarbital, if necessary may consider addition of overlapping Ativan taper, scheduled gabapentin for seizure prophylaxis, as needed Catapres, Bentyl, Vistaril, IV fluids, IV antiemetics, Tylenol as needed for pain. Will consult Case management for assistance for transition to next level of rehabilitation care. Mag 1.7, phos pending. 3. Hyponatremia, suspect hypovolemic: Admission sodium 134, has previously been in this range however normal range 1 36-1 40, will judiciously hydrate, repeat CMP in AM. 4. Hypokalemia: Admission K+ 3.0, magnesium level 1.7, supplementation given, repeat level in AM. 5. Acute on chronically elevated LFTs: Admission total bilirubin 1.50, AST/LT 329/102, increased from previously noted, likely secondary to #1, continue treatment as noted with repeat CMP in AM. 6. Chronic thrombocytopenia: Admission platelets 43, most recently 06/16/2036, range 30-60, continue to monitor. 7. History of chronic pancreatitis: Admission lipase 292, CMP with changes as noted, continue treatment as noted above. 8. Tobacco Abuse: Encouraged cessation, inpatient consultation per RT, NR if desired. 9. GERD: We will continue on famotidine. 10. DVT Prophylaxis: SCDs, defer chemoprophylaxis given significant thrombocytopenia. 11. CODE status: Patient HCPOA and living will not set up. Encouraged patient to discuss these items with case management/social work of interested especially if it becomes further evidence that he does in fact have COVID-19. Discussed CODE status at length including difference between FULL code, DNR-CCA and DNR-CC status. Following discussions about the differences in these status, requested Full Code status. Advanced Care Planning Face to Face Time: 16 minutes. Inpatient E&M: 40205 Init Hosp L3 Procedures: 05590 Advncd Care Plan 30 Min
[2020-10-20 15:19] LABS: Lactic Acid 2.9 mmol/L (0.4-1.9)
[2020-10-20 17:51] LABS: Prothrombin Time (Protime)PT. 12.5 SECONDS (11.7-14.9)
[2020-10-20 17:52] LABS: Partial Thromboplast Time 26.3 Seconds (24.1-36.2)
[2020-10-20 18:16] LABS: CRP 4.27 mg/L (0.0-3.0); Ferritin 1145 ng/mL (26-388); LDH 329 U/L (87-241); Phosphorus 3.3 mg/dL (2.5-4.9)
[2020-10-20 18:28] LABS: Reflex Lactate? Y
[2020-10-20 18:30] LABS: Procalcitonin 0.13 ng/mL (0.00-0.09)
[2020-10-20] MEDS: Phenobarbital 32.4 MG Tablet 64.8 MG PO ×2 (18:32→21:06)
[2020-10-20] MEDS: 0.9% Saline Lock 10 ML Syringe IV (18:51)
[2020-10-20] MEDS: proCHLORPERazine 10 MG/2 ML Vial 5 MG IV (18:52)
[2020-10-20] MEDS: Gabapentin 300 MG Capsule PO (18:53)
[2020-10-20 19:38] LABS: Lactic Acid 1.8 mmol/L (0.4-1.9)
[2020-10-20 20:34] LABS: Amphetamine Urine VISTA NEGATIVE (<1000 ng/mL); Barbiturate Urine VISTA NEGATIVE (< 200 ng/mL); Benzodiazepine Urine VISTA NEGATIVE (< 200 ng/mL); Cocaine Urine VISTA NEGATIVE (< 300 ng/mL); Ecstacy Urine VISTA NEGATIVE (< 500 ng/mL); Methadone Urine VISTA NEGATIVE (< 300 ng/mL); PCP Urine VISTA NEGATIVE (< 25 ng/mL); THC Urine VISTA NEGATIVE (< 50 ng/mL); Vista UDS pH Range 5
[2020-10-20] MEDS: Ondansetron 8 MG Tablet PO (21:05)
[2020-10-20] MEDS: hydrOXYzine PAM 25 MG Capsule 50 MG PO (21:05)
[2020-10-20] MEDS: Dicyclomine 10 MG Capsule 20 MG PO (21:05)
[2020-10-20] MEDS: Ibuprofen 600 MG Tablet PO (21:05)
[2020-10-20] MEDS: Famotidine 20 MG Tablet PO (21:06)
[2020-10-20] MEDS: traZODone 100 MG Tablet PO (21:06)
[2020-10-20] MEDS: 0.9% Normal Saline 1,000 ML 125 ML IV (21:15)
[2020-10-21] VITALS (10 sets, daily range): BP systolic 100–133; BP diastolic 57–75; PULSE 93–119; RESP 16–18; TEMP 36.7–37.5; O2SAT 94–99
[2020-10-21] MEDS: Phenobarbital 32.4 MG Tablet 64.8 MG PO ×6 (02:27→22:13)
[2020-10-21] MEDS: hydrOXYzine PAM 25 MG Capsule 50 MG PO ×3 (02:28→22:13)
[2020-10-21] MEDS: Dicyclomine 10 MG Capsule 20 MG PO (02:34)
[2020-10-21] MEDS: Gabapentin 300 MG Capsule PO ×2 (06:12→15:12)
[2020-10-21] MEDS: Acetaminophen 325 MG Tablet 650 MG PO (06:12)
[2020-10-21] MEDS: Ondansetron 8 MG Tablet PO ×2 (06:12→15:12)
[2020-10-21 06:46] LABS: Absolute Lymphocyte Count 1.22 X10^3/uL (0.83-4.51); Absolute Neutrophil Count 3.9 X10^3/uL (2.0-7.7); Basophil# 0.05 X10^3/uL; Basophil% 0.8 % (0-1); Eosinophil# 0.03 X10^3/uL; Eosinophils% 0.5 % (0-5); Hematocrit 31.7 % (40-54); Hemoglobin 10.8 g/dL (13.0-16.5); Lymphocyte # 1.22 X10^3/ul (4.0); Lymphocyte % 20.3 % (19-41); Mean Corp Hgb Conc 34.1 g/dL (32-36); Mean Corpuscular Hgb 33.4 pg (27.0-32.0); Mean Corpuscular Volume 98.1 fL (80-94); Mean Platelet Vol. 10.8 fl (6.2-12.0); Monocyte# 0.77 X10^3/uL; Monocyte% 12.8 % (0-10); NRBC Flagged by Analyzer 0 % (0-5); Neutrophil % 65.1 % (47-70); POSITIVE COUNT YES; RBC Distribution Width CV 12.9 % (11.6-14.6); RBC Distribution Width SD 46.5 fl (35.1-43.9); Red Blood Count 3.23 M/mm3 (4.6-6.2)
[2020-10-21 06:53] LABS: Differential Indicated SCAN CRITERIA MET; Platelet Count 35 K/mm3 (150-450)
[2020-10-21 07:13] LABS: ALB/GLOB Ratio 1.1 RATIO (0.9-2.4); AST(SGOT) 159 U/L (15-37); Alanine Aminotransfer ALT/SGPT 62 U/L (16-61); Albumin, Serum 3.8 g/dL (3.2-5.0); Alkaline Phosphatase 55 U/L (45-117); Anion Gap 21 (5-15); BUN 25 mg/dL (7-18); BUN/Creat Ratio 17.9 RATIO (10-20); Chloride 97 mmol/L (98-107); EST Glomerular Filtration Rate 57 mL/min (>60); Est Glom Filt Rate - Afr Amer 68 mL/min (>60); Estimated Creatinine Clearance 62.99 ml/min; Globulin 3.4 g/dL (2.2-4.2); Glucose 90 mg/dL (74-106); Lipase 323 U/L (73-393); Potassium 3.3 mmol/L (3.5-5.1); Protein, Total 7.2 g/dL (6.4-8.2); Sodium Level 136 mmol/L (136-145)
[2020-10-21 07:15] LABS: Differential Comment SCANNED; Platelet Estimate MKD DEC (ADEQ)
--- NOTE | 2020-10-21 07:53 | PCM.PN.HOSP ---
Patient Problems: Active and Suspected Problems (Last Reviewed 04/08/20 @ 17:[address] Simran Carranza, DO) Suspected COVID-19 virus infection (Acute) Hypokalemia (Acute) Alcohol withdrawal (Acute) Reason for Visit: Admitted for acute alcohol withdrawal with suspicion of COVID-19 Objective: Patient has tremors, nausea. Vomiting has improved and has not vomited after admission. Mild loss of appetite. Mild dry cough. Denies any known exposure to Covid patient. Denies loss of taste or smell, shortness of breath. Patient looks more calm after phenobarbitone. Physical exam General: Alert, Oriented x3, Cooperative, low body weight, BMI 20.4 kg/m? HEENT: Atraumatic, PERRLA, EOMI, Normocephalic Oral: No Gingival or Mucosal Lesions/ Ulcerations Neck: Supple, No JVD, Negative Carotid Bruits Lungs: Air entry diminished in bilateral lung bases. No crepitation/rhonchi Cardiovascular: Regular rate, Regular Rhythm, Normal S1, Normal S2, No murmurs Abdomen: Bowel Sounds Present, Soft, Non Tender, Non-Distended : No renal angle tenderness. No suprapubic tenderness. Extremities: No edema, Capillary Refill Less than 3 Seconds Skin: No rashes, No breakdown Musculoskeletal: No Tenderness to Palpation of Joints or Extremities. Mild to moderate muscle atrophy of extremities and subcutaneous loss of fat. Neurological: Tremors in both hands. Cranial nerves II-XII grossly intact, Deep Tendon Reflexes 2+/4 and Symmetrical, Neuro grossly intact Psych/Mental Status: Normal Affect, Appropriate. Vitals/I&O's: Vital Signs Temp Pulse Resp BP Pulse Ox 98.9 F 97 16 133/75 H 97 10/21/20 02:31 10/21/20 06:22 10/21/20 02:31 10/21/20 02:31 10/21/20 02:31 Oxygen Delivery Method Room Air Weight: 159 lb 1 oz Body Mass Index (BMI) 19.2 Finger Stick Blood Glucose 120 Intake and Output for Last 24 Hours 10/19/20 10/20/20 10/21/20 23:59 23:59 23:59 Intake Total 500 / 500 200 / 200 Output Total 100 / 100 Balance 400 / 400 200 / 200 Microbiology Past 72 Hours 10/20/20 19:56 Mucosa - Nasopharyngeal Respiratory Panel (PCR) - Final 10/20/20 20:00 Urine, Clean Catch Legionella Antigen - Final Laboratory Results 10/20/20 13:40: WBC 6.3, RBC 4.30 L, Hgb 14.5, Hct 41.9, MCV 97.4 H, MCH 33.7 H, MCHC 34.6, RDW Std Deviation 45.6 H, RDW Coeff of Isabel 12.8, Plt Count 43 L*, MPV 11.3, Immature Gran % (Auto) 0.500, Neut % (Auto) 68.6, Lymph % (Auto) 18.2 L, [place] % (Auto) 10.6 H, Eos % (Auto) 1.0, Baso % (Auto) 1.1 H, Absolute Neuts (auto) 4.3, Absolute Lymphs (auto) 1.14, Nucleated RBC % 0, Diff Path Review February10/20/20 13:40: D-Dimer Quant (PE/DVT) 2.41 H* 10/20/20 13:40: Sodium 134 L, Potassium 3.0 L, Chloride 89 L, Carbon Dioxide 21.0, Anion Gap 24 H, BUN 25 H, Creatinine 1.26, Estim Creat Clear Calc 79.20, Est GFR (MDRD) Af Amer 77, Est GFR (MDRD) Non-Af 64, BUN/Creatinine Ratio 19.8, Glucose 73 L, Calcium 9.4, Magnesium 1.7, Total Bilirubin 1.50 H, AST 329 H, ALT 102 H, Alkaline Phosphatase 76, Troponin I < 0.015, Total Protein 10.0 H, Albumin 4.9, Globulin 5.1 H, Albumin/Globulin Ratio 1.0, Lipase 292 10/20/20 13:40: PT 12.5, INR 1.0, APTT 26.3 10/20/20 13:40: Phosphorus 3.3, Ferritin 1145 H, Lactate Dehydrogenase 329 H, C-React Prot Ext Range 4.27 H 10/20/20 13:40: Procalcitonin 0.13 H 10/20/20 13:44: COVID-19 (ERIKA) Negative 10/20/20 14:05: Lactic Acid 2.9 H* 10/20/20 14:05: Ethyl Alcohol 143.0 10/20/20 19:00: Lactic Acid 1.8 10/20/20 20:00: Urine Opiates Screen NEGATIVE, Urine Methadone Screen NEGATIVE, Ur Barbiturates Screen NEGATIVE, Ur Phencyclidine Scrn NEGATIVE, Ur Amphetamines Screen NEGATIVE, U Methamphetamin-MDMA NEGATIVE, U Benzodiazepines Scrn NEGATIVE, Urine Cocaine Screen NEGATIVE, U Cannabinoids Screen NEGATIVE, Ur Drug Screen Comment 10/21/20 06:05: WBC 6.0, RBC 3.23 L, Hgb 10.8 L, Hct 31.7 L, MCV 98.1 H, MCH 33.4 H, MCHC 34.1, RDW Std Deviation 46.5 H, RDW Coeff of Isabel 12.9, Plt Count 35 L*, MPV 10.8, Immature Gran % (Auto) 0.500, Neut % (Auto) 65.1, Lymph % (Auto) 20.3, [place] % (Auto) 12.8 H, Eos % (Auto) 0.5, Baso % (Auto) 0.8, Absolute Neuts (auto) 3.9, Absolute Lymphs (auto) 1.22, Nucleated RBC % 0, Differential Comment SCANNED, Diff Path Review February, Platelet Estimate MKD 10/21/20 06:05: Sodium 136, Potassium 3.3 L, Chloride 97 L, Carbon Dioxide 18.0 L, Anion Gap 21 H, BUN 25 H, Creatinine 1.40 H, Estim Creat Clear Calc 62.99, Est GFR (MDRD) Af Amer 68, Est GFR (MDRD) Non-Af 57 L, BUN/Creatinine Ratio 17.9, Glucose 90, Calcium 8.0 L, Total Bilirubin 1.40 H, AST 159 H, ALT 62 H, Alkaline Phosphatase 55, Total Protein 7.2, Albumin 3.8, Globulin 3.4, Albumin/Globulin Ratio 1.1, Lipase 323 Current Medications Acetaminophen (Acetaminophen 325 Mg Tablet) 650 mg PO Q6H PRN PRN PRN Reason: Pain Score 1-10/Temp > 100.7 F Last Admin: 10/21/20 06:12 Dose: 325 mg Documented by: Al Hydroxide/Mg Hydroxide (Mag Hydrox/Al Hydrox/Simeth 30 Ml Udc) 30 ml PO Q6H PRN PRN PRN Reason: Gastric Burning Albuterol Sulfate (Albuterol 2.5 Mg/3 Ml Vial.Neb.) 2.5 mg INHALATION Q2H PRN PRN PRN Reason: Dyspnea, wheezing Dicyclomine HCl (Dicyclomine 10 Mg Capsule) 20 mg PO Q6H PRN PRN PRN Reason: abdominal discomfort Last Admin: 10/21/20 02:34 Dose: 20 mg Documented by: Famotidine (Famotidine 20 Mg Tablet) 20 mg PO BID [facility] Last Admin: 10/20/20 21:06 Dose: 20 mg Documented by: Folic Acid (Folic Acid 1 Mg Tablet) 1 mg PO DAILY [facility] Gabapentin (Gabapentin 300 Mg Capsule) 300 mg PO Q8H PRN PRN PRN Reason: moderate to severe anxiety Last Admin: 10/21/20 06:12 Dose: 300 mg Documented by: Guaifenesin (Guaifenesin 10 Ml Udc (200mg/10ml)) 20 ml PO Q4H PRN PRN PRN Reason: COUGH Hydralazine HCl (Hydralazine 20 Mg/Ml Vial) 10 mg IV Q4H PRN PRN PRN Reason: SBP > 160 Hydroxyzine Pamoate (Hydroxyzine Sirena 25 Mg Capsule) 50 mg PO Q4H PRN PRN PRN Reason: mild anxiety Last Admin: 10/21/20 02:28 Dose: 50 mg Documented by: Sodium Chloride () 1,000 mls @ 125 mls/hr IV .Q8H [facility] Stop: 10/21/20 09:27 Last Admin: 10/20/20 21:15 Dose: 125 mls/hr Documented by: Ibuprofen (Ibuprofen 600 Mg Tablet) 600 mg PO Q8H PRN PRN PRN Reason: Pain Score 1-10 Last Admin: 10/20/20 21:05 Dose: 600 mg Documented by: Influenza Virus Vaccine Quadrival (Influenza Vaccine (6mos+)/Pf 0.5 Ml Syringe) 0.5 ml IM .ONCE ONE Stop: 10/21/20 10:01 Loperamide HCl (Loperamide 2 Mg Capsule) 2 mg PO Q4H PRN PRN PRN Reason: LOOSE STOOLS Magnesium Hydroxide (Magnesium Hydroxide 30 Ml Udc) 30 ml PO DAILY PRN PRN PRN Reason: Constipation Multivitamins (Multivitamins,Therapeutic Tablet) 1 tablet PO DAILY [facility] Nicotine (Nicotine 21 Mg Patch) 21 mg TD DAILY [facility] Last Admin: 10/20/20 18:32 Dose: 21 mg Documented by: Ondansetron HCl (Ondansetron 8 Mg Tablet) 8 mg PO Q8H PRN PRN PRN Reason: NAUSEA Last Admin: 10/21/20 06:12 Dose: 8 mg Documented by: Ondansetron HCl (Ondansetron 4 Mg/2 Ml Vial) 4 mg IV Q8H PRN PRN PRN Reason: NAUSEA/VOMITING Phenobarbital (Phenobarbital 32.4 Mg Tablet) 97.2 mg PO Q4H ROBERT; Taper Stop: 10/25/20 01:59 Last Admin: 10/21/20 06:12 Dose: 97.2 mg Documented by: Prochlorperazine Edisylate (Prochlorperazine 10 Mg/2 Ml Vial) 5 mg IV Q4H PRN PRN PRN Reason: Breakthrough nausea/vomiting Last Admin: 10/20/20 18:52 Dose: 5 mg Documented by: Psyllium Hydrophilic Mucilloid (Psyllium 1 Packet) 1 packet PO DAILY PRN PRN PRN Reason: Constipation Senna/Docusate Sodium (Senna/Docusate Sodium 1 Tablet) 2 tablet PO BID PRN PRN PRN Reason: Constipation Sodium Chloride (0.9% Saline Lock 10 Ml Syringe) 10 - 40 ml IV UD PRN PRN Reason: SALINE FLUSH Last Admin: 10/20/20 18:51 Dose: 10 ml Documented by: Thiamine HCl (Thiamine Hydrochloride 100 Mg Tablet) 100 mg PO DAILY ROBERT Throat Lozenges (Benzocaine/Menthol 1 Lozenge) 1 lozenge MUCOUS MEM Q2H PRN PRN PRN Reason: SORE THROAT Trazodone HCl (Trazodone 100 Mg Tablet) 100 mg PO QHS PRN PRN Reason: INSOMNIA Last Admin: 10/20/20 21:06 Dose: 100 mg Documented by: STROKE Vital Signs/Narrative: Vital Signs Pulse 10/21/20 06:22 97 10/21/20 04:05 111 H Medical Necessity - Tobacco Use Smoking Status: Current every day smoker Tobacco Use: Cigarettes Assessment/Plan All Active Problems (Last Reviewed 04/08/20 @ 17:[address] Simran Carranza DO) Anemia (Acute) Suspected COVID-19 virus infection (Acute) Hypokalemia (Acute) Hypoxia (Acute) Alcohol withdrawal (Acute) The patient is a 50 y/o M with history of chronic alcohol use and dependence and history of withdrawal, DT (6-8 beers specifically tall boys daily and 1/5th vodka daily), Chronic thrombocytopenia, Tobacco use, Chronic COPD, Anxiety and Depression who presents to the [facility] ED on 10/20/20 was admitted with nonspecific symptoms of fatigue, severe throbbing frontal headache, body aches, cough, exertional dyspnea, chills with diaphoresis but no fever, nausea, vomiting generalized abdominal cramping with no diarrhea or alteration of taste or smell. COVID-19 PCR test negative 1. Suspected Acute Viral Syndrome, COVID-19: CTPA without significant findings. Labs reviewed. Hypokalemia,, thrombocytopenia chronic, elevated BUN and creatinine. Lactic acid was 2.9. Repeat 1.8. Inflammatory markers elevated including ferritin, LDH, CRP. Procalcitonin 0.13 mildly elevated. ID has been consulted. Heart rate is in 90s, improving. No fever. I have low suspicion for COVID-19 and if ID agrees, discontinue isolation when transferred to [facility] 3. 2. Acute EtOH Withdrawal, hypokalemia and hyponatremia: Patient has chronic alcoholic hepatitis possible cirrhosis with thrombocytopenia, platelet 35,000, total bilirubin 1.5, elevated transaminases. INR 1.0. D-dimer elevated. On phenobarbitone based other supportive medications for alcohol withdrawal. Magnesium 1.7. Phosphorus 3.3. Electrolyte replacement for hypokalemia. Patient looks dehydrated with BUN/creatinine 25/1.4. IV fluid Ringer lactate. 3. Acute on chronic alcoholic hepatitis: Admission total bilirubin 1.50, AST/LT 329/102. Repeat labs shows improvement in total bilirubin, ALT and AST. Alkaline phosphatase normal. LDH 329. 6. Chronic thrombocytopenia from alcoholic hepatitis: Admission platelets 43, most recently 06/16/2036, range 30-60, continue to monitor. 7. History of chronic pancreatitis: Admission lipase 292, CMP with changes as noted, continue treatment as noted above. 8. Chronic cigarette smoking and nicotine use and dependence : Encouraged cessation 9. GERD: continue on famotidine. 10. DVT Prophylaxis: SCDs, defer chemoprophylaxis given significant thrombocytopenia. Clinical Impression(s) from Imaging Studies Chest CTA 10/20/20 14:19 IMPRESSION: Normal CTA chest examination, without a demonstrated pulmonary embolism or arterial dissection. Diffuse fatty infiltration of the liver. Inpatient E&M: 14158 Subs Hosp L2
--- NOTE | 2020-10-21 08:04 | PCS.PANDOC ---
PANDEMIC DOCUMENTATION INITIATED: Date: 09/14/2020 Time:
[2020-10-21] MEDS: Thiamine Hydrochloride 100 MG Tablet PO (08:53)
[2020-10-21] MEDS: Famotidine 20 MG Tablet PO ×2 (08:54→22:13)
[2020-10-21] MEDS: Folic Acid 1 MG Tablet PO (08:54)
[2020-10-21] MEDS: Multivitamins,Therapeutic Tablet 1 TABLET PO (08:54)
[2020-10-21] MEDS: 0.9% Saline Lock 10 ML Syringe IV (08:55)
--- NOTE | 2020-10-21 10:43 | CASEMGMT ---
Addendum entered by Trini Quick 10/21/20 14:15: Social Work SW spoke with physician who states pt will be transferred to PCU unit today. In current room, 180 would need to do a phone interview. In PCU, 180 would be able to complete assessment face to face. SW spoke with Cherrie from 180 who would prefer to see pt tomorrow and assess in person as this is more effective. Plan: 180 to see pt tomorrow for face to face assessment. PARKER Waters Original Note: Social Work Pt here for alcohol detox. Phone call to Eliceo pt navigator at 180 and referral made. 180 SW will be at the hospital today and Jean Paul will notify of admission and SW will see pt today. PARKER Waters
[2020-10-21 13:20] LABS: Pathologist Review Reviewed
[2020-10-21] MEDS: Lactated Ringers 1,000 ML 100 ML IV (15:09)
--- NOTE | 2020-10-21 15:49 | PCM.HP.ID ---
Problem List (1) Suspected COVID-19 virus infection Status: Acute Reason for Consult: suspected covid Consulted by: Dr. Gregory History of Present Illness: The patient is a 50 year old M with h/o etoh abuse, presented with several days of etoh withdrawal, associated with loss of appetite, n/v, fatigue, cough. No change in taste/smell, no diarrhea, no aches, no dyspnea. No sick contacts, lives alone. Feeling better today. No hypoxia here. Full ROS performed and neg except as noted above. - Medical History Past Medical History (Chronic Problems): Chronic Problems (Last Reviewed 04/08/20 @ 17:[address] Simran Carranza, DO) Elevated LFTs (Chronic) GERD (gastroesophageal reflux disease) (Chronic) Alcohol abuse (Chronic) Anxiety (Chronic) Thrombocytopenia (Chronic) Hypokalemia (Chronic) Arthritis of left hip (Chronic) Tobacco dependency (Chronic) Allergies/Adverse Reactions: Allergies diphenhydramine HCl [From Benadryl] Adverse Reaction (Verified 10/20/20 12:53) Swelling mushroom Adverse Reaction (Verified 10/20/20 12:53) Vomiting Home Medications: Ambulatory Orders Medication Instructions Recorded NK 10/20/20 - Social History Tobacco Use: cigarettes Alcohol Use: heavy Vital Signs Temp Pulse Resp BP Pulse Ox 99.3 F H 96 18 100/57 L 97 10/21/20 15:30 10/21/20 15:30 10/21/20 15:30 10/21/20 15:30 10/21/20 15:30 Oxygen Delivery Method Room Air Weight: 72.15 kg Body Mass Index (BMI) 19.2 Finger Stick Blood Glucose 120 Microbiology Past 72 Hours 10/20/20 19:56 Respiratory Panel (PCR) - Final Mucosa - Nasopharyngeal 10/20/20 20:00 Legionella Antigen - Final Urine, Clean Catch Laboratory Tests Past 24 Hrs 10/20/20 10/20/20 10/20/20 13:40 13:40 13:40 WBC RBC Hgb Hct MCV MCH MCHC RDW Std Deviation RDW Coeff of Isabel Plt Count MPV Immature Gran % (Auto) Neut % (Auto) Lymph % (Auto) [place] % (Auto) Eos % (Auto) Baso % (Auto) Absolute Neuts (auto) Absolute Lymphs (auto) Nucleated RBC % Differential Comment Diff Path Review Reviewed Platelet Estimate PT 12.5 INR 1.0 APTT 26.3 Sodium Potassium Chloride Carbon Dioxide Anion Gap BUN Creatinine Estim Creat Clear Calc Est GFR (MDRD) Af Amer Est GFR (MDRD) Non-Af BUN/Creatinine Ratio Glucose Lactic Acid Calcium Phosphorus 3.3 Ferritin 1145 H Total Bilirubin AST ALT Alkaline Phosphatase Lactate Dehydrogenase 329 H C-React Prot Ext Range 4.27 H Total Protein Albumin Globulin Albumin/Globulin Ratio Lipase Procalcitonin Urine Opiates Screen Urine Methadone Screen Ur Barbiturates Screen Ur Phencyclidine Scrn Ur Amphetamines Screen U Methamphetamin-MDMA U Benzodiazepines Scrn Urine Cocaine Screen U Cannabinoids Screen Ur Drug Screen Comment 10/20/20 10/20/20 10/20/20 13:40 19:00 20:00 WBC RBC Hgb Hct MCV MCH MCHC RDW Std Deviation RDW Coeff of Isabel Plt Count MPV Immature Gran % (Auto) Neut % (Auto) Lymph % (Auto) [place] % (Auto) Eos % (Auto) Baso % (Auto) Absolute Neuts (auto) Absolute Lymphs (auto) Nucleated RBC % Differential Comment Diff Path Review Platelet Estimate PT INR APTT Sodium Potassium Chloride Carbon Dioxide Anion Gap BUN Creatinine Estim Creat Clear Calc Est GFR (MDRD) Af Amer Est GFR (MDRD) Non-Af BUN/Creatinine Ratio Glucose Lactic Acid 1.8 Calcium Phosphorus Ferritin Total Bilirubin AST ALT Alkaline Phosphatase Lactate Dehydrogenase C-React Prot Ext Range Total Protein Albumin Globulin Albumin/Globulin Ratio Lipase Procalcitonin 0.13 H Urine Opiates Screen NEGATIVE Urine Methadone Screen NEGATIVE Ur Barbiturates Screen NEGATIVE Ur Phencyclidine Scrn NEGATIVE Ur Amphetamines Screen NEGATIVE U Methamphetamin-MDMA NEGATIVE U Benzodiazepines Scrn NEGATIVE Urine Cocaine Screen NEGATIVE U Cannabinoids Screen NEGATIVE Ur Drug Screen Comment 10/21/20 10/21/20 06:05 06:05 WBC 6.0 RBC 3.23 L Hgb 10.8 L Hct 31.7 L MCV 98.1 H MCH 33.4 H MCHC 34.1 RDW Std Deviation 46.5 H RDW Coeff of Isabel 12.9 Plt Count 35 L* MPV 10.8 Immature Gran % (Auto) 0.500 Neut % (Auto) 65.1 Lymph % (Auto) 20.3 [place] % (Auto) 12.8 H Eos % (Auto) 0.5 Baso % (Auto) 0.8 Absolute Neuts (auto) 3.9 Absolute Lymphs (auto) 1.22 Nucleated RBC % 0 Differential Comment SCANNED Diff Path Review May foll Platelet Estimate MKD DEC PT INR APTT Sodium 136 Potassium 3.3 L Chloride 97 L Carbon Dioxide 18.0 L Anion Gap 21 H BUN 25 H Creatinine 1.40 H Estim Creat Clear Calc 62.99 Est GFR (MDRD) Af Amer 68 Est GFR (MDRD) Non-Af 57 L BUN/Creatinine Ratio 17.9 Glucose 90 Lactic Acid Calcium 8.0 L Phosphorus Ferritin Total Bilirubin 1.40 H AST 159 H ALT 62 H Alkaline Phosphatase 55 Lactate Dehydrogenase C-React Prot Ext Range Total Protein 7.2 Albumin 3.8 Globulin 3.4 Albumin/Globulin Ratio 1.1 Lipase 323 Procalcitonin Urine Opiates Screen Urine Methadone Screen Ur Barbiturates Screen Ur Phencyclidine Scrn Ur Amphetamines Screen U Methamphetamin-MDMA U Benzodiazepines Scrn Urine Cocaine Screen U Cannabinoids Screen Ur Drug Screen Comment - Other Studies Radiology: [] reviewed Other Studies: [] Route of nutrition/ use of supplements: [] Nutritional Intake: [] IV Site: [] Carreno Catheter: [] - Physical Exam General: Alert, Cooperative, No apparent distress HEENT: Atraumatic, PERRLA, EOMI Neck: Supple, No Nodes Lungs: Clear to auscultation, Normal air movement Cardiovascular: Regular rate, Regular Rhythm Abdomen: Soft, Non Tender, Non-Distended Extremities: No edema Skin: No rashes IV Site: Peripheral, without redness Musculoskeletal: No Tenderness to Palpation of Joints or Extremities Neurological: Cranial nerves II-XII grossly intact - Assessment/Plan Antibiotics: [] Assessment/Plan: [] Active and Suspected Problems (Last Reviewed 04/08/20 @ 17:[address] Simran Carranza, DO) Suspected COVID-19 virus infection (Acute) Hypokalemia (Acute) Alcohol withdrawal (Acute) Covid pcr neg, no lymphopenia, chest imaging and exam clear, rapid improvement in symptoms without covid treatment. Low suspicion for covid, ok to d.c isolation. Will follow as needed, thank you, d/w Dr. Palacios
[2020-10-22] MEDS: Lactated Ringers 1,000 ML 100 ML IV (01:16)
[2020-10-22] MEDS: Phenobarbital 32.4 MG Tablet 64.8 MG PO ×6 (01:19→22:18)
[2020-10-22 01:21] VITALS: BP 120/82; PULSE 88; RESP 16; TEMP 36.7; O2SAT 98
--- NOTE | 2020-10-22 05:55 | US_ITS ---
STUDY: ABDOMINAL ULTRASOUND - RIGHT UPPER QUADRANT REASON FOR VISIT: Male, 50 years old ELEVATED LFTS TECHNIQUE: Ultrasound evaluation of the right upper quadrant was performed with real-time and static noguera-scale imaging. TECHNICAL QUALITY: Adequate. COMPARISON: Comparison is made with prior examination dated 04/13/2016. FINDINGS: Liver: The liver is slightly enlarged and measures 18.5 cm. There is increased echogenicity consistent with fatty infiltration. The bile ducts are within normal limits. There is hepatic color flow. The direction of portal flow is hepatopetal. There is no demonstrated mass lesion. Gallbladder: Normal distended gallbladder. The gallbladder wall measures 2 mm. There is a negative sonographic Landry''s sign. There is no pericholecystic fluid. There are no gallstones. Common Bile Duct (C.B.D.): The common bile duct measures 3 mm. Pancreas: Normal size of the head, body and tail of the pancreas. There is normal echogenicity of the pancreas. There is no demonstrated pancreatic mass or cyst. Right Kidney: Normal size of the right kidney. The right kidney measures 13.2cm x 6.3 cm x 5.3 cm. Normal renal cortex. The right cortex measures 1.8 cm. There is no demonstrated renal mass or cyst. There is no right hydronephrosis. US/Abdomen Limited IMPRESSION: Mild degree of hepatomegaly and diffuse fatty infiltration. Electronically Signed: Saeed Gan, at 10:13 EST , Service support ,
[2020-10-22 07:15] VITALS: O2SAT 92
[2020-10-22 08:00] VITALS: BP 119/85; PULSE 97; RESP 18; TEMP 37; O2SAT 97
--- NOTE | 2020-10-22 09:00 | ADDICTION ---
This bond underwriter met with patient in his room to conduct ASAM, MSE, AUDIT assessments and to plan for discharge. Pt. A/O x4. All assessments completed, faxed to and placed in pt. chart on floor. Pt scheduled for follow-up treatment with [facility] on 10/27/2020 @4pm. He plans to discharge to home and is willing to engage in non-intensive outpatient services.
[2020-10-22] MEDS: Gabapentin 300 MG Capsule PO ×2 (09:53→20:46)
[2020-10-22] MEDS: Ondansetron 8 MG Tablet PO ×2 (09:53→17:29)
[2020-10-22] MEDS: Famotidine 20 MG Tablet PO ×2 (09:54→22:18)
[2020-10-22] MEDS: Thiamine Hydrochloride 100 MG Tablet PO (09:55)
[2020-10-22] MEDS: Multivitamins,Therapeutic Tablet 1 TABLET PO (09:55)
[2020-10-22] MEDS: Folic Acid 1 MG Tablet PO (09:55)
[2020-10-22] MEDS: Psyllium 1 PACKET PO (09:56)
[2020-10-22] MEDS: 0.9% Normal Saline 1,000 ML 100 ML IV (10:01)
[2020-10-22 12:05] VITALS: BP 116/79; PULSE 96; RESP 18; TEMP 36.7; O2SAT 95
[2020-10-22] MEDS: hydrOXYzine PAM 25 MG Capsule 50 MG PO ×3 (13:13→22:22)
[2020-10-22 13:20] LABS: Pathologist Review Reviewed
--- NOTE | 2020-10-22 15:29 | PN_ITS ---
Patient Problems: Active and Suspected Problems (Last Reviewed 04/08/20 @ 17:[address] Simran Carranza, DO) Suspected COVID-19 virus infection (Acute) Hypokalemia (Acute) Alcohol withdrawal (Acute) Reason for Visit: Follow-up for alcohol withdrawal. Objective: Seen and examined. Patient states in the morning that his anxiety and restlessness is well controlled. He is not having hallucinations. But in afternoon as per nursing staff he is restless and trying to get out of the bed. Physical exam General: Alert, Oriented x3, Cooperative, BMI 20.8 kg/m? HEENT: Atraumatic, PERRLA, EOMI, Normocephalic Oral: No Gingival or Mucosal Lesions/ Ulcerations Neck: Supple, No JVD, Negative Carotid Bruits Lungs: Air entry diminished in bilateral lung bases. No crepitation/rhonchi Cardiovascular: Regular rate, Regular Rhythm, Normal S1, Normal S2, No murmurs Abdomen: Bowel Sounds Present, Soft, Non Tender, Non-Distended : No renal angle tenderness. No suprapubic tenderness. Extremities: No edema, Capillary Refill Less than 3 Seconds Skin: No rashes, No breakdown Musculoskeletal: No Tenderness to Palpation of Joints or Extremities. Mild to moderate muscle atrophy of extremities and loss of subcutaneous fat pad. Neurological: Cranial nerves II-XII grossly intact, Deep Tendon Reflexes 2+/4 and Symmetrical, Neuro grossly intact Psych/Mental Status: Normal Affect, Appropriate. Vitals/I&O's: Vital Signs Temp Pulse Resp BP Pulse Ox 98.1 F 96 18 116/79 95 10/22/20 12:05 10/22/20 12:05 10/22/20 12:05 10/22/20 12:05 10/22/20 12:05 Oxygen Delivery Method Room Air Weight: 162 lb Body Mass Index (BMI) 19.2 Finger Stick Blood Glucose 120 Intake and Output for Last 24 Hours 10/20/20 10/21/20 10/22/20 23:59 23:59 23:59 Intake Total 500 / 500 1680 / 1680 2346.67 / 2346.67 Output Total 100 / 100 575 / 575 Balance 400 / 400 1105 / 1105 2346.67 / 2346.67 Microbiology Past 72 Hours 10/20/20 14:05 Blood Culture (Wb) - Anticubital Left Blood Culture - Preliminary No growth in 48 hours. 10/20/20 14:20 Blood Culture (Wb) - Anticubital Right Blood Culture - Preliminary No growth in 48 hours. 10/20/20 19:56 Mucosa - Nasopharyngeal Respiratory Panel (PCR) - Final 10/20/20 20:00 Urine, Clean Catch Legionella Antigen - Final Laboratory Results 10/21/20 06:05: Diff Path Review Reviewed Current Medications Acetaminophen (Acetaminophen 325 Mg Tablet) 650 mg PO Q6H PRN PRN PRN Reason: Pain Score 1-10/Temp > 100.7 F Last Admin: 10/21/20 06:12 Dose: 325 mg Documented by: Al Hydroxide/Mg Hydroxide (Mag Hydrox/Al Hydrox/Simeth 30 Ml Udc) 30 ml PO Q6H PRN PRN PRN Reason: Gastric Burning Albuterol Sulfate (Albuterol 2.5 Mg/3 Ml Vial.Neb.) 2.5 mg INHALATION Q2H PRN PRN PRN Reason: Dyspnea, wheezing Clonidine (Clonidine Hcl 0.1 Mg Tablet) 0.1 mg PO BID PRN PRN Reason: SBP>160 MMHG Dicyclomine HCl (Dicyclomine 10 Mg Capsule) 20 mg PO Q6H PRN PRN PRN Reason: abdominal discomfort Last Admin: 10/21/20 02:34 Dose: 20 mg Documented by: Famotidine (Famotidine 20 Mg Tablet) 20 mg PO BID [facility] Last Admin: 10/22/20 09:54 Dose: 20 mg Documented by: Folic Acid (Folic Acid 1 Mg Tablet) 1 mg PO DAILY [facility] Last Admin: 10/22/20 09:55 Dose: 1 mg Documented by: Gabapentin (Gabapentin 300 Mg Capsule) 300 mg PO Q8H PRN PRN PRN Reason: moderate to severe anxiety Last Admin: 10/22/20 09:53 Dose: 300 mg Documented by: Guaifenesin (Guaifenesin 10 Ml Udc (200mg/10ml)) 20 ml PO Q4H PRN PRN PRN Reason: COUGH Hydralazine HCl (Hydralazine 20 Mg/Ml Vial) 10 mg IV Q4H PRN PRN PRN Reason: SBP > 180 Hydroxyzine Pamoate (Hydroxyzine Sirena 25 Mg Capsule) 50 mg PO Q4H PRN PRN PRN Reason: mild anxiety Last Admin: 10/22/20 13:13 Dose: 50 mg Documented by: Sodium Chloride () 1,000 mls @ 100 mls/hr IV .Q10H [facility] Stop: 10/23/20 04:44 Last Admin: 10/22/20 10:01 Dose: 100 mls/hr Documented by: Ibuprofen (Ibuprofen 400 Mg Tablet) 400 mg PO Q8H PRN PRN PRN Reason: Pain Score 1-10 Loperamide HCl (Loperamide 2 Mg Capsule) 2 mg PO Q4H PRN PRN PRN Reason: LOOSE STOOLS Multivitamins (Multivitamins,Therapeutic Tablet) 1 tablet PO DAILY [facility] Last Admin: 10/22/20 09:55 Dose: 1 tablet Documented by: Nicotine (Nicotine 21 Mg Patch) 21 mg TD DAILY [facility] Last Admin: 10/22/20 09:55 Dose: 21 mg Documented by: Ondansetron HCl (Ondansetron 8 Mg Tablet) 8 mg PO Q8H PRN PRN PRN Reason: NAUSEA Last Admin: 10/22/20 09:53 Dose: 8 mg Documented by: Phenobarbital (Phenobarbital 32.4 Mg Tablet) 64.8 mg PO Q4H [facility]; Taper Stop: 10/25/20 01:59 Last Admin: 10/22/20 13:14 Dose: 64.8 mg Documented by: Potassium Chloride (Potassium Chloride 20 Meq Tablet) 40 meq PO TID [facility] Stop: 10/24/20 08:42 Last Admin: 10/22/20 13:14 Dose: 40 meq Documented by: Prochlorperazine Edisylate (Prochlorperazine 10 Mg/2 Ml Vial) 5 mg IV Q4H PRN PRN PRN Reason: Breakthrough nausea/vomiting Last Admin: 10/20/20 18:52 Dose: 5 mg Documented by: Psyllium Hydrophilic Mucilloid (Psyllium 1 Packet) 1 packet PO DAILY PRN PRN PRN Reason: Constipation Last Admin: 10/22/20 09:56 Dose: 1 packet Documented by: Senna/Docusate Sodium (Senna/Docusate Sodium 1 Tablet) 2 tablet PO BID PRN PRN PRN Reason: Constipation Sodium Chloride (0.9% Saline Lock 10 Ml Syringe) 10 - 40 ml IV UD PRN PRN Reason: SALINE FLUSH Last Admin: 10/21/20 08:55 Dose: 10 ml Documented by: Thiamine HCl (Thiamine Hydrochloride 100 Mg Tablet) 100 mg PO DAILY [facility] Last Admin: 10/22/20 09:55 Dose: 100 mg Documented by: Throat Lozenges (Benzocaine/Menthol 1 Lozenge) 1 lozenge MUCOUS MEM Q2H PRN PRN PRN Reason: SORE THROAT Trazodone HCl (Trazodone 100 Mg Tablet) 100 mg PO QHS PRN PRN Reason: INSOMNIA Last Admin: 10/20/20 21:06 Dose: 100 mg Documented by: STROKE Vital Signs/Narrative: Vital Signs Temp Pulse Resp BP Pulse Ox 10/22/20 12:05 98.1 F 96 18 116/79 95 Medical Necessity - Tobacco Use Smoking Status: Current every day smoker Tobacco Use: Cigarettes Assessment/Plan All Active Problems (Last Reviewed 04/08/20 @ 17:[address] Simran Carranza, DO) Anemia (Acute) Suspected COVID-19 virus infection (Acute) Hypokalemia (Acute) Hypoxia (Acute) Alcohol withdrawal (Acute) The patient is a 50 y/o M with history of chronic alcohol use and dependence and history of withdrawal, DT (6-8 beers specifically tall boys daily and 1/5th vodka daily), Chronic thrombocytopenia, Tobacco use, Chronic COPD, Anxiety and Depression who presents to the [facility] ED on 10/20/20 was admitted with nonspecific symptoms of fatigue, severe throbbing frontal headache, body aches, cough, exertional dyspnea, chills with diaphoresis but no fever, nausea, vomiting generalized abdominal cramping with no diarrhea or alteration of taste or smell. COVID-19 PCR test negative 1. COVID-19 ruled out: CTPA without significant findings. Labs reviewed. Hypokalemia,, thrombocytopenia chronic, elevated BUN and creatinine. Lactic acid was 2.9. Repeat 1.8. Inflammatory markers elevated including ferritin, LDH, CRP. Procalcitonin 0.13 mildly elevated. ID was consulted. COVID-19 was ruled out as ID and myself does not think it is COVID-19 infection. COVID-19 isolation was discontinued 2. Acute EtOH Withdrawal, hypokalemia and hyponatremia: Patient has chronic alcoholic hepatitis possible cirrhosis with thrombocytopenia, platelet 35,000, total bilirubin 1.5, elevated transaminases. INR 1.0. D-dimer elevated. On phenobarbitone based other supportive medications for alcohol withdrawal. Magnesium 1.7. Phosphorus 3.3. Patient initially started on IV fluid Ringer lactate. 10/22: Patient has hyponatremia and hypokalemia: IV fluid changed to normal saline. Magnesium normal. Potassium replacement. Labs ordered for tomorrow a.m. 3. Acute on chronic alcoholic hepatitis: Admission total bilirubin 1.50, AST/LT 329/102. Repeat labs shows improvement in total bilirubin, ALT and AST. Alkaline phosphatase normal. LDH 329. 10/22: Total bilirubin and transaminases improving on liver chemistry. 6. Chronic thrombocytopenia from alcoholic hepatitis: Admission platelets 43, most recently 06/16/2036, range 30-60, continue to monitor. 10/22: Platelets continue to be low, chronic 7. History of chronic pancreatitis: Admission lipase 292, CMP with changes as noted, continue treatment as noted above. 8. Chronic cigarette smoking and nicotine use and dependence : Encouraged cessation 9. GERD: continue on famotidine. 10. DVT Prophylaxis: SCDs, defer chemoprophylaxis given significant thrombocytopenia. Moderate protein calorie malnutrition Clinical Impression(s) from Imaging Studies Chest CTA 10/20/20 14:19 IMPRESSION: Normal CTA chest examination, without a demonstrated pulmonary embolism or arterial dissection. Diffuse fatty infiltration of the liver. Microbiology Past 72 Hours 10/20/20 14:05 Blood Culture (Wb) - Anticubital Left Blood Culture - Preliminary No growth in 48 hours. 10/20/20 14:20 Blood Culture (Wb) - Anticubital Right Blood Culture - Preliminary No growth in 48 hours. 10/20/20 19:56 Mucosa - Nasopharyngeal Respiratory Panel (PCR) - Final 10/20/20 20:00 Urine, Clean Catch Legionella Antigen - Final Laboratory Results 10/21/20 06:05: Diff Path Review Reviewed Inpatient E&M: 33228 Subs Hosp L2
[2020-10-22 16:10] VITALS: BP 118/74; PULSE 91; RESP 18; TEMP 37.2; O2SAT 96
[2020-10-22 22:10] VITALS: BP 122/78; PULSE 93; RESP 16; TEMP 36.7; O2SAT 94
[2020-10-22] MEDS: traZODone 100 MG Tablet PO (22:19)
[2020-10-23] MEDS: Phenobarbital 32.4 MG Tablet 64.8 MG PO ×3 (02:07→14:40)
[2020-10-23 03:00] VITALS: BP 135/90; PULSE 117; RESP 18; TEMP 36.5; O2SAT 95
[2020-10-23 05:32] LABS: Absolute Lymphocyte Count 1.36 X10^3/uL (0.83-4.51); Absolute Neutrophil Count 2.5 X10^3/uL (2.0-7.7); Basophil# 0.07 X10^3/uL; Basophil% 1.5 % (0-1); Eosinophil# 0.17 X10^3/uL; Eosinophils% 3.6 % (0-5); Hematocrit 32.7 % (40-54); Hemoglobin 11.3 g/dL (13.0-16.5); Lymphocyte # 1.36 X10^3/ul (4.0); Lymphocyte % 29.1 % (19-41); Mean Corp Hgb Conc 34.6 g/dL (32-36); Mean Corpuscular Hgb 33.5 pg (27.0-32.0); Mean Platelet Vol. 10.4 fl (6.2-12.0); Monocyte# 0.52 X10^3/uL; Monocyte% 11.1 % (0-10); NRBC Flagged by Analyzer 0 % (0-5); Neutrophil % 53.6 % (47-70); POSITIVE COUNT YES; Platelet Count 58 K/mm3 (150-450); RBC Distribution Width CV 12.2 % (11.6-14.6); RBC Distribution Width SD 43.9 fl (35.1-43.9); Red Blood Count 3.37 M/mm3 (4.6-6.2); White Blood Count 4.7 K/mm3 (4.4-11.0)
[2020-10-23 06:04] LABS: ALB/GLOB Ratio 0.9 RATIO (0.9-2.4); AST(SGOT) 61 U/L (15-37); Alanine Aminotransfer ALT/SGPT 39 U/L (16-61); Albumin, Serum 3.5 g/dL (3.2-5.0); Alkaline Phosphatase 88 U/L (45-117); Anion Gap 5 (5-15); BUN 14 mg/dL (7-18); BUN/Creat Ratio 17.1 RATIO (10-20); Calcium,Total 9.4 mg/dL (8.5-10.1); Chloride 99 mmol/L (98-107); Creatinine, Serum 0.82 mg/dL (0.70-1.30); EST Glomerular Filtration Rate 105 mL/min (>60); Est Glom Filt Rate - Afr Amer 127 mL/min (>60); Estimated Creatinine Clearance 109.53 ml/min; Globulin 3.7 g/dL (2.2-4.2); Glucose 108 mg/dL (74-106); Magnesium 1.2 mg/dL (1.6-2.6); Phosphorus 1.8 mg/dL (2.5-4.9); Protein, Total 7.2 g/dL (6.4-8.2); Sodium Level 133 mmol/L (136-145)
[2020-10-23 08:02] VITALS: O2SAT 95
[2020-10-23 08:45] VITALS: BP 94/66; PULSE 84; RESP 16; TEMP 36.6; O2SAT 95
[2020-10-23] MEDS: Folic Acid 1 MG Tablet PO (08:48)
[2020-10-23] MEDS: Multivitamins,Therapeutic Tablet 1 TABLET PO (08:48)
[2020-10-23] MEDS: Famotidine 20 MG Tablet PO (08:48)
[2020-10-23] MEDS: Thiamine Hydrochloride 100 MG Tablet PO (08:48)
--- NOTE | 2020-10-23 09:00 | ADDICTION ---
This caption writer met with patient in his room to finalize d/c plan. Pt is scheduled to follow up with [facility] for assessment and treatment.
--- NOTE | 2020-10-23 09:16 | DCINST_ITS ---
- Discharge Diagnoses Current Active Problems: Current Active and Chronic Problems (Last Reviewed 04/08/20 @ 17:[address] Simran Carranza DO) Suspected COVID-19 virus infection (Acute) Elevated LFTs (Chronic) GERD (gastroesophageal reflux disease) (Chronic) Alcohol abuse (Chronic) Hypokalemia (Acute) Anxiety (Chronic) Thrombocytopenia (Chronic) Alcohol withdrawal (Acute) Tobacco dependency (Chronic) You will use the following diet at home:: Regular Your food should be the consistency of: Regular Your liquids should be the consistency of: Regular/Thin Discharge Activity: May Not Drive - Chronic alcohol use Weight Bearing Status: Weight bearing as tolerated Call your doctor if you observe: Fever of 101 or Higher, Numbness or Tingling, Change in Color, Inability to urinate, Inability to have a bowel movement, Shortness of breath, Dizziness, Fainting spells, Swelling in the ankles, Chest pain, Prolonged hiccoughing, Increased palpitations (irregular heartbeat), Calf discomfort, Uncontrolled pain Allergies/Adverse Reactions: Allergies diphenhydramine HCl [From Benadryl] Adverse Reaction (Verified 10/20/20 12:53) Swelling mushroom Adverse Reaction (Verified 10/20/20 12:53) Vomiting Medications to take at Discharge Folic Acid 1 mg PO DAILY #30 tab 10/23/20 Nicotine [Nicoderm Cq] 21 mg TD DAILY #30 patch 10/23/20 Thiamine Hydrochloride [Vitamin B1] 100 mg PO DAILY #30 tab 10/23/20 The following prescriptions were given: Folic Acid 1 mg PO DAILY #30 tab Transmission Status: Pending to [facility] #30 Nicotine [Nicoderm Cq] 21 mg TD DAILY #30 patch Transmission Status: Pending to [facility] Thiamine Hydrochloride [Vitamin B1] 100 mg PO DAILY #30 tab Transmission Status: Pending to [facility] Primary Care Physician: Elmer Bolton MD [Primary Care Provider] - Please follow up with your Primary Care Physician in: In 1 to 2 weeks Test Results: Test results from this visit will be discussed in further detail at your follow- up appointment, if applicable.
--- NOTE | 2020-10-23 09:17 | DS.PCM_ITS ---
Discharge Date and Diagnosis - Problem List Patient Problems: Active and Suspected Problems (Last Reviewed 04/08/20 @ 17:[address] Simran Carranza DO) Suspected COVID-19 virus infection (Acute) Hypokalemia (Acute) Alcohol withdrawal (Acute) Date of Admission: 10/20/20 Date of Discharge: 10/23/20 - Primary Discharge Diagnosis Acute Problems: Active Problems (Last Reviewed 04/08/20 @ 17:[address] Simran Carranza DO) Suspected COVID-19 virus infection (Acute) Hypokalemia (Acute) Alcohol withdrawal (Acute) - Secondary Discharge Diagnosis Chronic Problems: Chronic Problems (Last Reviewed 04/08/20 @ 17:[address] Simran Carranza DO) Elevated LFTs (Chronic) GERD (gastroesophageal reflux disease) (Chronic) Alcohol abuse (Chronic) Anxiety (Chronic) Thrombocytopenia (Chronic) Hypokalemia (Chronic) Arthritis of left hip (Chronic) Tobacco dependency (Chronic) Hospital Course and Treatment Operations: None Summary of Care Provided: The patient is a 50 y/o M with history of chronic alcohol use and dependence and history of withdrawal, DT (6-8 beers specifically tall boys daily and 1/5th vodka daily), Chronic thrombocytopenia, Tobacco use, Chronic COPD, Anxiety and Depression who presents to the [facility] ED on 10/20/20 was admitted with nonspecific symptoms of fatigue, severe throbbing frontal headache, body aches, cough, exertional dyspnea, chills with diaphoresis but no fever, nausea, vomiting generalized abdominal cramping with no diarrhea or alteration of taste or smell. COVID-19 PCR test negative 1. COVID-19 ruled out: CTPA without significant findings. Labs reviewed. Hypokalemia,, thrombocytopenia chronic, elevated BUN and creatinine. Lactic acid was 2.9. Repeat 1.8. Inflammatory markers elevated including ferritin, LDH, CRP. Procalcitonin 0.13 mildly elevated. ID was consulted. COVID-19 was ruled out as ID and myself does not think it is COVID-19 infection. COVID-19 isolation was discontinued 2. Acute EtOH Withdrawal, hypokalemia and hyponatremia: Patient has chronic alcoholic hepatitis possible cirrhosis with thrombocytopenia, platelet 35,000, total bilirubin 1.5, elevated transaminases. INR 1.0. D-dimer elevated. On phenobarbitone based other supportive medications for alcohol withdrawal. Magnesium 1.7. Phosphorus 3.3. Patient was resuscitated with IV fluid Ringer lactate and then normal saline. Magnesium normal. Potassium replacement. Repeat potassium 4.0. Magnesium and phosphorus level low and prescription was given. 3. Acute on chronic alcoholic hepatitis: Admission total bilirubin 1.50, AST/LT 329/102. Repeat labs shows improvement in total bilirubin, ALT and AST. Alkaline phosphatase normal. LDH 329. Thank you serial liver chemistry shows improvement in total bilirubin and transaminases. 4. Chronic thrombocytopenia from alcoholic hepatitis: Admission platelets 43, most recently 06/16/2036, range 30-60, continue to monitor. Platelets continue to be low, chronic 7. History of chronic pancreatitis: Admission lipase 292, CMP with changes as noted, continue treatment as noted above. 8. Chronic cigarette smoking and nicotine use and dependence : Encouraged cessation 9. GERD: continue on famotidine. 10. DVT Prophylaxis: SCDs, defer chemoprophylaxis given significant thrombocytopenia. Moderate protein calorie malnutrition Discharge medication reconciliation done. Discharge follow-up instructions completed. Discharge process discussed with the patient and all questions were answered to patient's satisfaction. Prescription was sent to [email or web address]. Patient was called to pick remover the prescription from the pharmacy. Total time spent, exact 35 minutes on discharge meds reconciliation, exa mination, coordination of care with nurses and ancillary staff, review of imaging and blood test and discussion with the patient on follow-up instructions Clinical Impression(s) from Imaging Studies Chest CTA 10/20/20 14:19 IMPRESSION: Normal CTA chest examination, without a demonstrated pulmonary embolism or arterial dissection. Diffuse fatty infiltration of the liver. Patient Problems: Active and Suspected Problems (Last Reviewed 04/08/20 @ 17:[address] Simran Carranza, DO) Suspected COVID-19 virus infection (Acute) Hypokalemia (Acute) Alcohol withdrawal (Acute) Objective: Seen and examined. Heart rate and blood pressure is controlled. Patient's alcohol withdrawal symptoms are well controlled. Physical exam General: Alert, Oriented x3, Cooperative, BMI 20.8 kg/m?. No tremors. HEENT: Atraumatic, PERRLA, EOMI, Normocephalic Oral: No Gingival or Mucosal Lesions/ Ulcerations Neck: Supple, No JVD, Negative Carotid Bruits Lungs: Air entry diminished in bilateral lung bases. No crepitation/rhonchi Cardiovascular: Regular rate, Regular Rhythm, Normal S1, Normal S2, No murmurs Abdomen: Bowel Sounds Present, Soft, Non Tender, Non-Distended : No renal angle tenderness. No suprapubic tenderness. Extremities: No edema, Capillary Refill Less than 3 Seconds Skin: No rashes, No breakdown Musculoskeletal: No Tenderness to Palpation of Joints or Extremities. Mild muscle atrophy of extremities and loss of subcutaneous fat pad. Neurological: Cranial nerves II-XII grossly intact, Deep Tendon Reflexes 2+/4 and Symmetrical, Neuro grossly intact Psych/Mental Status: Normal Affect, Appropriate. - Physical Exam Vitals/I&O's: Vital Signs Temp Pulse Resp BP Pulse Ox 97.9 F 84 16 94/66 95 10/23/20 08:45 10/23/20 08:45 10/23/20 08:45 10/23/20 08:45 10/23/20 08:45 Oxygen Delivery Method Room Air Weight: 162 lb Body Mass Index (BMI) 19.2 Finger Stick Blood Glucose 120 Intake and Output for Last 24 Hours 10/21/20 10/22/20 10/23/20 23:59 23:59 23:59 Intake Total 1680 / 1680 3663.34 / 3903.34 240 / 240 Output Total 575 / 575 650 / 1150 500 / 500 Balance 1105 / 1105 3013.34 / 2753.34 -260 / -260 Microbiology Past 72 Hours 10/20/20 14:05 Blood Culture (Wb) - Anticubital Left Blood Culture - Preliminary No growth in 48 hours. 10/20/20 14:20 Blood Culture (Wb) - Anticubital Right Blood Culture - Preliminary No growth in 48 hours. 10/20/20 19:56 Mucosa - Nasopharyngeal Respiratory Panel (PCR) - Final 10/20/20 20:00 Urine, Clean Catch Legionella Antigen - Final Laboratory Results 10/21/20 06:05: Diff Path Review Reviewed 10/23/20 05:20: WBC 4.7, RBC 3.37 L, Hgb 11.3 L, Hct 32.7 L, MCV 97.0 H, MCH 33.5 H, MCHC 34.6, RDW Std Deviation 43.9, RDW Coeff of Isabel 12.2, Plt Count 58 L , MPV 10.4, Immature Gran % (Auto) 1.100 H, Neut % (Auto) 53.6, Lymph % (Auto) 29.1, Blanco % (Auto) 11.1 H, Eos % (Auto) 3.6, Baso % (Auto) 1.5 H, Absolute Neuts (auto) 2.5, Absolute Lymphs (auto) 1.36, Nucleated RBC % 0 10/23/20 05:20: Sodium 133 L, Potassium 4.0, Chloride 99, Carbon Dioxide 29.0, Anion Gap 5, BUN 14, Creatinine 0.82, Estim Creat Clear Calc 109.53, Est GFR (MDRD) Af Amer 127, Est GFR (MDRD) Non-Af 105, BUN/Creatinine Ratio 17.1, Glucose 108 H, Calcium 9.4, Phosphorus 1.8 L, Magnesium 1.2 L, Total Bilirubin 0.60, AST 61 H, ALT 39, Alkaline Phosphatase 88, Total Protein 7.2, Albumin 3.5, Globulin 3.7, Albumin/Globulin Ratio 0.9 Current Medications Acetaminophen (Acetaminophen 325 Mg Tablet) 650 mg PO Q6H PRN PRN PRN Reason: Pain Score 1-10/Temp > 100.7 F Last Admin: 10/21/20 06:12 Dose: 325 mg Documented by: Al Hydroxide/Mg Hydroxide (Mag Hydrox/Al Hydrox/Simeth 30 Ml Udc) 30 ml PO Q6H PRN PRN PRN Reason: Gastric Burning Albuterol Sulfate (Albuterol 2.5 Mg/3 Ml Vial.Neb.) 2.5 mg INHALATION Q2H PRN PRN PRN Reason: Dyspnea, wheezing Clonidine (Clonidine Hcl 0.1 Mg Tablet) 0.1 mg PO BID PRN PRN Reason: SBP>160 MMHG Dicyclomine HCl (Dicyclomine 10 Mg Capsule) 20 mg PO Q6H PRN PRN PRN Reason: abdominal discomfort Last Admin: 10/21/20 02:34 Dose: 20 mg Documented by: Famotidine (Famotidine 20 Mg Tablet) 20 mg PO BID [facility] Last Admin: 10/23/20 08:48 Dose: 20 mg Documented by: Folic Acid (Folic Acid 1 Mg Tablet) 1 mg PO DAILY [facility] Last Admin: 10/23/20 08:48 Dose: 1 mg Documented by: Gabapentin (Gabapentin 300 Mg Capsule) 300 mg PO Q8H PRN PRN PRN Reason: moderate to severe anxiety Last Admin: 10/22/20 20:46 Dose: 300 mg Documented by: Guaifenesin (Guaifenesin 10 Ml Udc (200mg/10ml)) 20 ml PO Q4H PRN PRN PRN Reason: COUGH Hydralazine HCl (Hydralazine 20 Mg/Ml Vial) 10 mg IV Q4H PRN PRN PRN Reason: SBP > 180 Hydroxyzine Pamoate (Hydroxyzine Sirena 25 Mg Capsule) 50 mg PO Q4H PRN PRN PRN Reason: mild anxiety Last Admin: 10/22/20 22:22 Dose: 50 mg Documented by: Ibuprofen (Ibuprofen 400 Mg Tablet) 400 mg PO Q8H PRN PRN PRN Reason: Pain Score 1-10 Loperamide HCl (Loperamide 2 Mg Capsule) 2 mg PO Q4H PRN PRN PRN Reason: LOOSE STOOLS Multivitamins (Multivitamins,Therapeutic Tablet) 1 tablet PO DAILY [facility] Last Admin: 10/23/20 08:48 Dose: 1 tablet Documented by: Nicotine (Nicotine 21 Mg Patch) 21 mg TD DAILY [facility] Last Admin: 10/23/20 08:48 Dose: 21 mg Documented by: Ondansetron HCl (Ondansetron 8 Mg Tablet) 8 mg PO Q8H PRN PRN PRN Reason: NAUSEA Last Admin: 10/22/20 17:29 Dose: 8 mg Documented by: Phenobarbital (Phenobarbital 32.4 Mg Tablet) 64.8 mg PO Q6H [facility]; Taper Stop: 10/25/20 01:59 Last Admin: 10/23/20 08:48 Dose: 64.8 mg Documented by: Potassium Chloride (Potassium Chloride 20 Meq Tablet) 40 meq PO TID [facility] Stop: 10/24/20 08:42 Last Admin: 10/23/20 06:18 Dose: 40 meq Documented by: Prochlorperazine Edisylate (Prochlorperazine 10 Mg/2 Ml Vial) 5 mg IV Q4H PRN PRN PRN Reason: Breakthrough nausea/vomiting Last Admin: 10/20/20 18:52 Dose: 5 mg Documented by: Psyllium Hydrophilic Mucilloid (Psyllium 1 Packet) 1 packet PO DAILY PRN PRN PRN Reason: Constipation Last Admin: 10/22/20 09:56 Dose: 1 packet Documented by: Senna/Docusate Sodium (Senna/Docusate Sodium 1 Tablet) 2 tablet PO BID PRN PRN PRN Reason: Constipation Sodium Chloride (0.9% Saline Lock 10 Ml Syringe) 10 - 40 ml IV UD PRN PRN Reason: SALINE FLUSH Last Admin: 10/21/20 08:55 Dose: 10 ml Documented by: Thiamine HCl (Thiamine Hydrochloride 100 Mg Tablet) 100 mg PO DAILY [facility] Last Admin: 10/23/20 08:48 Dose: 100 mg Documented by: Throat Lozenges (Benzocaine/Menthol 1 Lozenge) 1 lozenge MUCOUS MEM Q2H PRN PRN PRN Reason: SORE THROAT Trazodone HCl (Trazodone 100 Mg Tablet) 100 mg PO QHS PRN PRN Reason: INSOMNIA Last Admin: 10/22/20 22:19 Dose: 100 mg Documented by: Home Medications: Medications to take at Discharge Folic Acid 1 mg PO DAILY #30 tab 10/23/20 Nicotine [Nicoderm Cq] 21 mg TD DAILY #30 patch 10/23/20 Thiamine Hydrochloride [Vitamin B1] 100 mg PO DAILY #30 tab 10/23/20 Magnesium Oxide [Mgo] 400 mg PO TID #10 tab 10/24/20 Na Biphos/Potassium Phosphate [Neutra-Phos Packet] 1 packet PO TID #10 packet 10/24/20 Following Prescriptions Were Given to Patient: Folic Acid 1 mg PO DAILY #30 tab Transmission Status: Received by [facility] #30 Nicotine [Nicoderm Cq] 21 mg TD DAILY #30 patch Transmission Status: Received by [facility]30 Thiamine Hydrochloride [Vitamin B1] 100 mg PO DAILY #30 tab Transmission Status: Received by [facility]30 Primary Care Physician: Elmer Bolton MD [Primary Care Provider] - Medical Necessity - Tobacco Use Smoking Status: Current every day smoker Tobacco Use: Cigarettes Meaningful Use Info Meaningful Use Diagnoses (Choose all that apply): None applicable Inpatient E&M: [id number] [facility]
[2020-10-23 14:40] VITALS: BP 128/92; PULSE 83; RESP 16; TEMP 36.8; O2SAT 94
[2020-10-23 14:41] VITALS: O2SAT 94
--- NOTE | 2020-10-23 17:44 | PN_ITS ---
Patient Problems: Active and Suspected Problems (Last Reviewed 04/08/20 @ 17:[address] Simran Carranza, DO) Suspected COVID-19 virus infection (Acute) Hypokalemia (Acute) Alcohol withdrawal (Acute) Vitals/I&O's: Vital Signs Temp Pulse Resp BP Pulse Ox 98.2 F 83 16 128/92 H 94 10/23/20 14:40 10/23/20 14:40 10/23/20 14:40 10/23/20 14:40 10/23/20 14:41 Oxygen Delivery Method Room Air Weight: 161 lb 3.2 oz Body Mass Index (BMI) 19.2 Finger Stick Blood Glucose 120 Intake and Output for Last 24 Hours 10/21/20 10/22/20 10/23/20 23:59 23:59 23:59 Intake Total 1680 / 1680 3663.34 / 3903.34 500 / 500 Output Total 575 / 575 650 / 1150 850 / 850 Balance 1105 / 1105 3013.34 / 2753.34 -350 / -350 Microbiology Past 72 Hours 10/20/20 14:05 Blood Culture (Wb) - Anticubital Left Blood Culture - Preliminary No growth in 48 hours. 10/20/20 14:20 Blood Culture (Wb) - Anticubital Right Blood Culture - Preliminary No growth in 48 hours. 10/20/20 19:56 Mucosa - Nasopharyngeal Respiratory Panel (PCR) - Final 10/20/20 20:00 Urine, Clean Catch Legionella Antigen - Final Laboratory Results 10/23/20 05:20: WBC 4.7, RBC 3.37 L, Hgb 11.3 L, Hct 32.7 L, MCV 97.0 H, MCH 33.5 H, MCHC 34.6, RDW Std Deviation 43.9, RDW Coeff of Isabel 12.2, Plt Count 58 L , MPV 10.4, Immature Gran % (Auto) 1.100 H, Neut % (Auto) 53.6, Lymph % (Auto) 29.1, [place] % (Auto) 11.1 H, Eos % (Auto) 3.6, Baso % (Auto) 1.5 H, Absolute Neuts (auto) 2.5, Absolute Lymphs (auto) 1.36, Nucleated RBC % 0 10/23/20 05:20: Sodium 133 L, Potassium 4.0, Chloride 99, Carbon Dioxide 29.0, Anion Gap 5, BUN 14, Creatinine 0.82, Estim Creat Clear Calc 109.53, Est GFR (MDRD) Af Amer 127, Est GFR (MDRD) Non-Af 105, BUN/Creatinine Ratio 17.1, Gluc ose 108 H, Calcium 9.4, Phosphorus 1.8 L, Magnesium 1.2 L, Total Bilirubin 0.60, AST 61 H, ALT 39, Alkaline Phosphatase 88, Total Protein 7.2, Albumin 3.5, Globulin 3.7, Albumin/Globulin Ratio 0.9 Current Medications Acetaminophen (Acetaminophen 325 Mg Tablet) 650 mg PO Q6H PRN PRN PRN Reason: Pain Score 1-10/Temp > 100.7 F Last Admin: 10/21/20 06:12 Dose: 325 mg Documented by: Al Hydroxide/Mg Hydroxide (Mag Hydrox/Al Hydrox/Simeth 30 Ml Udc) 30 ml PO Q6H PRN PRN PRN Reason: Gastric Burning Albuterol Sulfate (Albuterol 2.5 Mg/3 Ml Vial.Neb.) 2.5 mg INHALATION Q2H PRN PRN PRN Reason: Dyspnea, wheezing Clonidine (Clonidine Hcl 0.1 Mg Tablet) 0.1 mg PO BID PRN PRN Reason: SBP>160 MMHG Dicyclomine HCl (Dicyclomine 10 Mg Capsule) 20 mg PO Q6H PRN PRN PRN Reason: abdominal discomfort Last Admin: 10/21/20 02:34 Dose: 20 mg Documented by: Famotidine (Famotidine 20 Mg Tablet) 20 mg PO BID [facility] Last Admin: 10/23/20 08:48 Dose: 20 mg Documented by: Folic Acid (Folic Acid 1 Mg Tablet) 1 mg PO DAILY [facility] Last Admin: 10/23/20 08:48 Dose: 1 mg Documented by: Gabapentin (Gabapentin 300 Mg Capsule) 300 mg PO Q8H PRN PRN PRN Reason: moderate to severe anxiety Last Admin: 10/22/20 20:46 Dose: 300 mg Documented by: Guaifenesin (Guaifenesin 10 Ml Udc (200mg/10ml)) 20 ml PO Q4H PRN PRN PRN Reason: COUGH Hydralazine HCl (Hydralazine 20 Mg/Ml Vial) 10 mg IV Q4H PRN PRN PRN Reason: SBP > 180 Hydroxyzine Pamoate (Hydroxyzine Sirena 25 Mg Capsule) 50 mg PO Q4H PRN PRN PRN Reason: mild anxiety Last Admin: 10/22/20 22:22 Dose: 50 mg Documented by: Ibuprofen (Ibuprofen 400 Mg Tablet) 400 mg PO Q8H PRN PRN PRN Reason: Pain Score 1-10 Loperamide HCl (Loperamide 2 Mg Capsule) 2 mg PO Q4H PRN PRN PRN Reason: LOOSE STOOLS Multivitamins (Multivitamins,Therapeutic Tablet) 1 tablet PO DAILY [facility] Last Admin: 10/23/20 08:48 Dose: 1 tablet Documented by: Nicotine (Nicotine 21 Mg Patch) 21 mg TD DAILY [facility] Last Admin: 10/23/20 08:48 Dose: 21 mg Documented by: Ondansetron HCl (Ondansetron 8 Mg Tablet) 8 mg PO Q8H PRN PRN PRN Reason: NAUSEA Last Admin: 10/22/20 17:29 Dose: 8 mg Documented by: Phenobarbital (Phenobarbital 32.4 Mg Tablet) 64.8 mg PO Q6H [facility]; Taper Stop: 10/25/20 01:59 Last Admin: 10/23/20 14:40 Dose: 64.8 mg Documented by: Potassium Chloride (Potassium Chloride 20 Meq Tablet) 40 meq PO TID ROBERT Stop: 10/24/20 08:42 Last Admin: 10/23/20 14:40 Dose: 40 meq Documented by: Prochlorperazine Edisylate (Prochlorperazine 10 Mg/2 Ml Vial) 5 mg IV Q4H PRN PRN PRN Reason: Breakthrough nausea/vomiting Last Admin: 10/20/20 18:52 Dose: 5 mg Documented by: Psyllium Hydrophilic Mucilloid (Psyllium 1 Packet) 1 packet PO DAILY PRN PRN PRN Reason: Constipation Last Admin: 10/22/20 09:56 Dose: 1 packet Documented by: Senna/Docusate Sodium (Senna/Docusate Sodium 1 Tablet) 2 tablet PO BID PRN PRN PRN Reason: Constipation Sodium Chloride (0.9% Saline Lock 10 Ml Syringe) 10 - 40 ml IV UD PRN PRN Reason: SALINE FLUSH Last Admin: 10/21/20 08:55 Dose: 10 ml Documented by: Thiamine HCl (Thiamine Hydrochloride 100 Mg Tablet) 100 mg PO DAILY [facility] Last Admin: 10/23/20 08:48 Dose: 100 mg Documented by: Throat Lozenges (Benzocaine/Menthol 1 Lozenge) 1 lozenge MUCOUS MEM Q2H PRN PRN PRN Reason: SORE THROAT Trazodone HCl (Trazodone 100 Mg Tablet) 100 mg PO QHS PRN PRN Reason: INSOMNIA Last Admin: 10/22/20 22:19 Dose: 100 mg Documented by: STROKE Vital Signs/Narrative: Vital Signs Temp Pulse Resp BP Pulse Ox 10/23/20 14:41 94 10/23/20 14:40 98.2 F 83 16 128/92 H 94 Medical Necessity - Tobacco Use Smoking Status: Current every day smoker Tobacco Use: Cigarettes Assessment/Plan All Active Problems (Last Reviewed 04/08/20 @ 17:[address] Simran Carranza, DO) Anemia (Acute) Suspected COVID-19 virus infection (Acute) Hypokalemia (Acute) Hypoxia (Acute) Alcohol withdrawal (Acute)
== END 2020-10-23 19:08 | disposition home or self-care (01) | DRG 775 ==
LOC: ED 13:50 → MS2 16:15 → PCU 10-21 14:46
PROVIDERS: Admitting Provider Family Medicine; Emergency Provider Student in an Organized Health Care Education/Training Program; PCP Family Medicine; Visit Provider Internal Medicine
DX: F10.239 Alcohol dependence with withdrawal, unspecified (principal); E87.1 Hypo-osmolality and hyponatremia; E87.6 Hypokalemia; F17.210 Nicotine dependence, cigarettes, uncomplicated; E86.0 Dehydration; E44.0 Moderate protein-calorie malnutrition; Y90.6 Blood alcohol level of 120-199 mg/100 ml; K70.10 Alcoholic hepatitis without ascites; D64.9 Anemia, unspecified; Z68.1 Body mass index [BMI] 19.9 or less, adult; K21.9 Gastro-esophageal reflux disease without esophagitis; M16.12 Unilateral primary osteoarthritis, left hip; K86.1 Other chronic pancreatitis; Z20.822 Contact with and (suspected) exposure to COVID-19; D69.6 Thrombocytopenia, unspecified; J44.9 Chronic obstructive pulmonary disease, unspecified; F32.9 Major depressive disorder, single episode, unspecified; F41.9 Anxiety disorder, unspecified; Z79.899 Other long term (current) drug therapy
CPT/HCPCS: 36415; 71275; 76705; 80053; 80307; 82077; 82728; 83605; 83615; 83690; 83735; 84100; 84145; 84484; 85025; 85379; 85610; 85730; 86140; 87040; 87449; 87633; 87635; 93005; 99285; 99406; J7030; J7120; Q9967; 90686; A4216; J2405; U0002

== ENCOUNTER 2020-11-03 14:30 | Inpatient (IN) | payer MEDICAID, SELFPAY ==
[2020-10-20 17:34] VITALS: BMI 19.2
[2020-11-03] VITALS (7 sets, daily range): BP systolic 148–155; BP diastolic 76–95; PULSE 88–111; RESP 16–22; TEMP 36.4–37.3; O2SAT 96–98; BMI 23.3; BMI 21.2
--- NOTE | 2020-11-03 14:42 | CT_ITS ---
STUDY: CT BRAIN WITHOUT CONTRAST REASON FOR EXAM: Male, 50 years old. FOUND UNRESPONSIVE IN STREET WITH A BOTTLE OF VODKA, ALCOHOL ABUSE,HTN, HX-SZ INDUCED BY ALCOHOL, HTN RADIATION DOSAGE (If Supplied By Facility): CTDIvol = ( 44.99 ) mGy, DLP = ( 812.98 ) mGycm TECHNIQUE: Transaxial CT imaging of the brain was performed without administration of intravenous contrast material. Individualized dose optimization techniques were used for this CT. COMPARISON: Comparison is made with prior study 06/16/2020. FINDINGS: Normal soft tissue structures. Normal calvarium. There is mild cerebral atrophy with widening of the extra-axial spaces and ventricular dilatation. Normal white matter tracts of the cerebral hemispheres. Normal basal ganglia and thalami. Normal brainstem. There is mild cerebellar atrophy. There is no intracranial hemorrhage. There are no findings of an acute ischemic infarction. Normal visualized paranasal sinuses. CT/Brain/Head without Contrast IMPRESSION: Chronic involutional changes of the brain. Electronically Signed: Saeed Gan MD at 15:35 EST , Service support ,
--- NOTE | 2020-11-03 14:42 | EKG12_ITS ---
Test Reason : SYNCOPE Blood Pressure : / mmHG Vent. Rate : 099 BPM Atrial Rate : 099 BPM P-R Int : 144 ms QRS Dur : 082 ms QT Int : 392 ms P-R-T Axes : 053 -22 047 degrees QTc Int : 503 ms Normal sinus rhythm Prolonged QT Abnormal ECG Confirmed by NOAM PRICE, JACQUELINE ([id number]), magazine editor PRABHU NGUYEN ([id number]) on 11/04/2020 10:44:42 AM Referred By: Confirmed By:JACQUELINE SANTACRUZ MD
--- NOTE | 2020-11-03 14:48 | ED.RN ---
PT UNOPENED BOTTLE OF VODKA GIVEN TO SECURITY
[2020-11-03 14:56] LABS: Absolute Lymphocyte Count 0.81 X10^3/uL (0.83-4.51); Absolute Neutrophil Count 6.3 X10^3/uL (2.0-7.7); Basophil# 0.09 X10^3/uL; Basophil% 1.2 % (0-1); Eosinophil# 0.02 X10^3/uL; Eosinophils% 0.3 % (0-5); Hemoglobin 11.7 g/dL (13.0-16.5); Lymphocyte # 0.81 X10^3/ul (4.0); Lymphocyte % 10.5 % (19-41); Mean Corp Hgb Conc 34.4 g/dL (32-36); Mean Corpuscular Hgb 34.1 pg (27.0-32.0); Mean Corpuscular Volume 99.1 fL (80-94); Mean Platelet Vol. 8.5 fl (6.2-12.0); Monocyte# 0.51 X10^3/uL; Monocyte% 6.6 % (0-10); NRBC Flagged by Analyzer 0 % (0-5); Neutrophil # 6.29 X10^3/uL (2.7-7.7); Neutrophil % 81.3 % (47-70); Platelet Count 249 K/mm3 (150-450); RBC Distribution Width SD 46.7 fl (35.1-43.9); Red Blood Count 3.43 M/mm3 (4.6-6.2); White Blood Count 7.7 K/mm3 (4.4-11.0)
--- NOTE | 2020-11-03 15:05 | RAD_ITS ---
STUDY: X-RAY CHEST REASON FOR EXAM: Male, 50 years old. SOB AND SYNCOPE TECHNIQUE: Single AP portable view of the chest. COMPARISON: Comparison is made with prior study dated 06/16/2020. FINDINGS: EKG electrodes are seen. Hyperinflation. The lungs are clear. There is no demonstrated pleural abnormality. Normal size heart. Normal mediastinum and melisa. Normal visualized pulmonary arteries. There is atherosclerotic tortuosity of the aortic arch and descending thoracic aorta. Normal visualized thoracic spine. Normal visualized ribs, clavicles, and shoulders. There is no demonstrated abnormality of the visualized soft tissue structures of the upper abdomen. RAD/Chest 1 View (Portable) IMPRESSION: Normal x-ray examination of the chest. Electronically Signed: Saeed Gan MD at 15:24 EST , Service support ,
[2020-11-03 15:06] LABS: International Normalized Ratio 1.1; Prothrombin Time (Protime)PT. 13.5 SECONDS (11.7-14.9)
[2020-11-03 15:08] LABS: ALB/GLOB Ratio 0.9 RATIO (0.9-2.4); AST(SGOT) 37 U/L (15-37); Alanine Aminotransfer ALT/SGPT 32 U/L (16-61); Albumin, Serum 4.2 g/dL (3.2-5.0); Alkaline Phosphatase 80 U/L (45-117); Anion Gap 17 (5-15); BUN 16 mg/dL (7-18); BUN/Creat Ratio 15.2 RATIO (10-20); Calcium,Total 8.7 mg/dL (8.5-10.1); Chloride 92 mmol/L (98-107); Creatinine, Serum 1.05 mg/dL (0.70-1.30); EST Glomerular Filtration Rate 79 mL/min (>60); Est Glom Filt Rate - Afr Amer 95 mL/min (>60); Estimated Creatinine Clearance 84.97 ml/min; Globulin 4.5 g/dL (2.2-4.2); Glucose 131 mg/dL (74-106); Protein, Total 8.7 g/dL (6.4-8.2); Sodium Level 131 mmol/L (136-145)
[2020-11-03 15:11] LABS: Alcohol, Blood (Medical)-Serum < 3.0 mg/dL
[2020-11-03 15:11] LABS: Bedside Glucose 146 mg/dL (70-110)
[2020-11-03 15:31] LABS: Lactic Acid 5.6 mmol/L (0.4-1.9)
[2020-11-03] MEDS: Ondansetron 4 MG/2 ML Vial IV (15:58)
[2020-11-03 16:06] LABS: Mucous, Urine 0 SEEN /hpf (<or=2+); Red Blood Cells-Urine 0 SEEN /hpf (0-5)
[2020-11-03 16:11] LABS: Color, Urine Yellow (Yellow); Glucose, Dipstick Normal (Normal); Ketone-Dipstick 50 mg/dl (Negative); Leukocyte Esterase-Dipstick 25 /ul (Negative); Nitrite-Dipstick Negative (Negative); Occult Blood-Urine Negative /ul (Negative); Protein-Dipstick 30 mg/dl (Negative); Specific Gravity, Urine 1.015 (1.002-1.030); Urine Bilirubin Dipstick Negative (Negative); Urine Clarity Clear (Clear); Urine Urobilinogen Normal (Normal)
--- NOTE | 2020-11-03 16:12 | ED.VISSUMM ---
- ER Visit Summary Date of Service: 11/03/20 Chief Complaint: Altered mental status History of Present Illness: The patient is a 50 M presenting per EMS after being found in the street passed out holding a bottle of vodka. On arrival patient is confused but answering some questions appropriately. His BGT was 146. He was recently admitted for alcohol withdrawal. He states he has not had a drink in the past 2 days. The bottle of vodka that he was holding was sealed. He denies drug use. Denies head injury. He denies chest pain or shortness of breath. Physical Examination: Vitals are stable. Patient is afebrile. Alert no acute distress. HEENT exam dry mucous membranes Neck is supple. No meningismus Lungs are clear and equal bilaterally. Heart is regular tachycardic Abdomen is soft nontender nondistended. Extremities are unremarkable. Skin is warm and dry. No focal neurologic deficit. Alert and oriented x2. Normal strength and sensation Remainder of exam is unremarkable. Emergency Department Course and Treatment: Patient does have a documented seizure history. Chest x-ray shows no acute process. CT head shows chronic changes. EKG is sinus rhythm rate of 99 with no acute ischemic changes. CBC shows hemoglobin 11.7. Chemistries show sodium 131, potassium 3.0, glucose 131. Troponin is negative. Lactic acid 5.6. Alcohol negative. Tox is pending. Covid negative. Patient was given IV fluids. With elevated lactate patient may have had an unwitnessed seizure. He has no source of infection at this time. Patient continues to have confusion. Discussed with the hospitalist due to concern for alcohol withdrawal and DTs. Patient will be admitted. Disposition: Admission Impression: Encephalopathy, DTs This note was generated with [employer] dictation software. It may contain incorrect words, spelling, and punctuation that were not noted in review of the chart prior to signing ED Disposition - Plan for ED Patient: Referrals: Elmer Bolton MD [Primary Care Provider] -
[2020-11-03] MEDS: 0.9% Normal Saline 1,000 ML 999 ML IV (16:18)
[2020-11-03 16:19] LABS: Bacteria 1+ /hpf (None Seen); Squamous Epithelial Cells - UA 0 SEEN /hpf (0-5); White Blood Cells 0-5 SEEN /hpf (0-5)
--- NOTE | 2020-11-03 16:20 | NURSING ---
DR ESPARZA IN ROOM
--- NOTE | 2020-11-03 16:23 | ED.RN ---
JAMSHID CLINICAL STAFF ANESTHESIOLOGIST, NOTIFIED PT LITER OF VODKA WITH SECURITY.
--- NOTE | 2020-11-03 16:24 | PCM.HP.STD ---
Problem List (1) Encephalopathy Status: Acute (2) Hyponatremia Status: Acute (3) Alcohol withdrawal Status: Chronic Qualifiers: (4) GERD (gastroesophageal reflux disease) Status: Chronic Qualifiers: (5) Anxiety Status: Chronic (6) Tobacco dependency Status: Chronic History of Present Illness Date of Admission: 11/03/20 Chief Complaint: confusion The patient is a 50 year old M with pmhx of alcoholism, seizures, nicotine abuse who presented to the ER with confusion. He was found down in the street unconscious holding an unopened bottle of vodka. He was brought to the ER and was very confused speaking nonsensically to the ER provider. At the time of my interview he was more lucid. He states that he was walking down the street to go home and felt nauseous then tripped. He states he did not strike his head. He did lose consciousness. When asked if he thought he may have had another seizure he replied maybe. He currently is resting comfortably in bed NAD. He c/o headache and waves of nausea with vomiting. He has had multiple admissions for alcohol detox. He states his last drink was 2 days ago. He has not been following up with 180. He states he would like to be detoxed. [] Past Medical History Past Medical History (Chronic Problems): Chronic Problems (Last Reviewed 04/08/20 @ 17:[address] Simran Carranza, DO) Elevated LFTs (Chronic) GERD (gastroesophageal reflux disease) (Chronic) Alcohol abuse (Chronic) Anxiety (Chronic) Thrombocytopenia (Chronic) Alcohol withdrawal (Chronic) Hypokalemia (Chronic) Arthritis of left hip (Chronic) Tobacco dependency (Chronic) Medical History: Medical History (Last Reviewed 04/08/20 @ 17:[address] Simran Carranza, ) Hx of seizure disorder Z86.69 Allergies diphenhydramine HCl [From Benadryl] Adverse Reaction (Verified 10/20/20 12:53) Swelling mushroom Adverse Reaction (Verified 10/20/20 12:53) Vomiting Home Medications: Ambulatory Orders Medication Instructions Recorded Folic Acid 1 mg PO DAILY 11/03/20 Magnesium Oxide [Mgo] 400 mg PO TID 11/03/20 Na Biphos/Potassium Phosphate 1 packet PO TID 11/03/20 [Neutra-Phos Packet] Nicotine [Nicoderm Cq] 21 mg TD DAILY 11/03/20 Thiamine Hydrochloride [Vitamin B1] 100 mg PO DAILY 11/03/20 Surgical History: tonsillectomy Psychiatric History: No pertinent psych hx Lives: Alone Tobacco Use: Cigarettes Alcohol: None Drugs: None - *Family History Sibling History Items: - - Thyroid disease. Maternal History Items: Hypertension, - - Thyroid disease. Paternal History Items: Diabetes Review of Systems Constitutional: Denies: Chills, Fever, Weight Change HEENT: Denies: Head Aches, Sinus Congestion, Sinus Drainage Cardiovascular: Denies: Chest Pain, Palpitations Respiratory: Denies: Cough, Shortness of breath at rest, Sputum production Gastrointestinal: Denies: Abdominal Pain, Nausea, Vomiting Genitourinary: Denies: Dysuria Musculoskeletal: Denies: Joint Pain, Joint Tenderness Skin: Denies: Rash, Wounds Neurological: Reports: Confusion. Denies: Focal weakness, Numbness, Tingling Psychiatric: Denies: Anxiety, Depression, Homicidal Ideations, Suicidal Ideations Hematologic/ Lymphatic: Denies: Easy Bruising, Easy Bleeding VTE Information - Inpt Only VTE Present on Admission: No VTE Mechan Device Prophylaxis: None VTE Pharm Prophylaxis ordered?: Yes - Physical Exam Vitals/I&O's: Vital Signs Temp Pulse Resp BP Pulse Ox 97.5 F L 88 16 150/90 H 97 11/03/20 16:12 11/03/20 16:12 11/03/20 16:12 11/03/20 16:12 11/03/20 16:12 Oxygen Delivery Method Room Air Weight: 162 lb 11.218 oz Body Mass Index (BMI) 23.3 Finger Stick Blood Glucose 146 Intake and Output for Last 24 Hours 11/01/20 11/02/20 11/03/20 23:59 23:59 23:59 Intake Total 500 / 500 Balance 500 / 500 General: Alert, Oriented x3, Cooperative, Lethargic HEENT: Atraumatic, PERRLA, EOMI, Normocephalic Neck: Supple, No JVD, Negative Carotid Bruits Lungs: Clear to auscultation, Normal air movement Cardiovascular: Regular rate, No murmurs Abdomen: Bowel Sounds Present, Soft, Non Tender Extremities: No edema, Capillary Refill Less than 3 Seconds Skin: No rashes, No breakdown Musculoskeletal: No Tenderness to Palpation of Joints or Extremities Neurological: Cranial nerves II-XII grossly intact Psych/Mental Status: Normal Affect, Appropriate, Alert and oriented to time, place, person, mood and affect Microbiology Past 72 Hours 11/03/20 14:50 Mucosa - Nose SARS-CoV-2 Antigen (Rapid) - Final Laboratory Results 11/03/20 14:39: POC Glucose 146 H 11/03/20 14:40: WBC 7.7, RBC 3.43 L, Hgb 11.7 L, Hct 34.0 L, MCV 99.1 H, MCH 34.1 H, MCHC 34.4, RDW Std Deviation 46.7 H, RDW Coeff of Isabel 13.0, Plt Count 249, MPV 8.5, Immature Gran % (Auto) 0.100, Neut % (Auto) 81.3 H, Lymph % (Auto) 10.5 L, [place] % (Auto) 6.6, Eos % (Auto) 0.3, Baso % (Auto) 1.2 H, Absolute Neuts (auto) 6.3, Absolute Lymphs (auto) 0.81 L, Nucleated RBC % 0 11/03/20 14:40: PT 13.5, INR 1.1 11/03/20 14:40: Sodium 131 L, Potassium 3.0 L, Chloride 92 L, Carbon Dioxide 22.0, Anion Gap 17 H, BUN 16, Creatinine 1.05, Estim Creat Clear Calc 84.97, Est GFR (MDRD) Af Amer 95, Est GFR (MDRD) Non-Af 79, BUN/Creatinine Ratio 15.2, Glucose 131 H, Calcium 8.7, Total Bilirubin 0.70, AST 37, ALT 32, Alkaline Phosphatase 80, Troponin I < 0.015, Total Protein 8.7 H, Albumin 4.2, Globulin 4.5 H, Albumin/Globulin Ratio 0.9 11/03/20 14:40: Ethyl Alcohol < 3.0 11/03/20 14:40: Magnesium Pending 11/03/20 14:45: Lactic Acid 5.6 H* 11/03/20 14:45: Ammonia 28.0 11/03/20 16:00: Urine Color Yellow, Urine Clarity Clear, Urine pH 7.0, Ur Specific [place] 1.015, Urine Protein 30 H, Urine Glucose (UA) Normal, Urine Ketones 50 H, Urine Occult Blood Negative, Urine Nitrite Negative, Urine Bilirubin Negative, Urine Urobilinogen Normal, Ur Leukocyte Esterase 25 H, Urine RBC 0 SEEN, Urine WBC 0-5 SEEN, Ur Squamous Epith Cells 0 SEEN, Urine Bacteria 1+, Urine Mucus 0 SEEN 11/03/20 16:00: Urine Opiates Screen Pending, Urine Methadone Screen Pending, Ur Barbiturates Screen Pending, Ur Phencyclidine Scrn Pending, Ur Amphetamines Screen Pending, U Methamphetamin-MDMA Pending, U Benzodiazepines Scrn Pending, Urine Cocaine Screen Pending, U Cannabinoids Screen Pending, Ur Drug Screen Comment Current Medications Sodium Chloride () 1,000 mls @ 999 mls/hr IV .Q1H1M ONE Stop: 11/03/20 17:11 Last Admin: 11/03/20 16:18 Dose: 999 mls/hr Documented by: Assessment/Plan All Active Problems (Last Reviewed 04/08/20 @ 17:[address] Simran Carranza, DO) Anemia (Acute) Suspected COVID-19 virus infection (Acute) Encephalopathy (Acute) Hyponatremia (Acute) Hypokalemia (Acute) Hypoxia (Acute) 1. Acute metabolic Encephalopathy - unclear etiology. Pt is a heavy drinker who has not drank in two days. He was found unconscious and was initially very confused in the ER, now more lucid. Possibly had an alcohol withdrawal seizure - he has had seizure in the past but is not currently on anti epileptics. May also have some degree of Delirium tremens. Start phenobarb taper -Lactate 5.6 -UA neg -urine positive for barbiturates -EtOH <3.0 -CT brain chronic changes 2. Alcoholism with withdrawal - pt desires to detox. as above, pheno taper initated. Last drink 2 days ago. [place] [facility] [place]. Hx seizure. -last detox here he was discharged on October 23. Provide folate, thiamine. Start CIWA protocol. 3. Hyponatremia, hypokalemia, hypomagnesemia - replete. check phos. 4. Nicotine abuse - patch DVT ppx: heparin DC plannin referral This patient was seen by Isaias Lu PA-C under the supervision of Dr. Will
[2020-11-03 16:31] LABS: Magnesium 1.4 mg/dL (1.6-2.6)
[2020-11-03 16:32] LABS: Amphetamine Urine VISTA NEGATIVE (<1000 ng/mL); Barbiturate Urine VISTA POSITIVE (< 200 ng/mL); Benzodiazepine Urine VISTA NEGATIVE (< 200 ng/mL); Cocaine Urine VISTA NEGATIVE (< 300 ng/mL); Ecstacy Urine VISTA NEGATIVE (< 500 ng/mL); Methadone Urine VISTA NEGATIVE (< 300 ng/mL); PCP Urine VISTA NEGATIVE (< 25 ng/mL); THC Urine VISTA NEGATIVE (< 50 ng/mL); Vista UDS pH Range 7
--- NOTE | 2020-11-03 16:40 | PCS.PANDOC ---
PANDEMIC DOCUMENTATION INITIATED: Date: 11/03/2020 Time: 1640
[2020-11-03] MEDS: Phenobarbital 32.4 MG Tablet 64.8 MG PO ×2 (16:54→21:45)
[2020-11-03] MEDS: Acetaminophen 500 MG Tablet PO (16:54)
[2020-11-03] MEDS: Ondansetron 8 MG Tablet PO (16:54)
[2020-11-03 18:50] LABS: Reflex Lactate? Y
--- NOTE | 2020-11-03 20:12 | PCS.PANDOC ---
PANDEMIC DOCUMENTATION INITIATED: Date: 11/03/20 Time: 9526
[2020-11-03 20:52] LABS: Phosphorus 3.2 mg/dL (2.5-4.9)
[2020-11-03] MEDS: Magnesium Sulfate 4gm/100mL 4 GM/100 ML IV.SOLN. IV (21:10)
[2020-11-03] MEDS: Heparin Injection (Vial) 5,000 UNIT/ML VIAL 5000 UNIT SC (21:10)
[2020-11-03] MEDS: proMETHazine 25 MG/ML Syringe 6.25 MG IV (21:30)
[2020-11-03] MEDS: 0.9% Saline Lock 10 ML Syringe IV (21:30)
--- NOTE | 2020-11-03 21:41 | NURSING ---
MEDICATION PATIENT WITH PHENERGAN DUE TO VOMITING, WILL MONITOR WITH SCHEDULED MEDICATION AND MONITOR FOR ATIVAN IF NEEDED.
[2020-11-03] MEDS: Acetaminophen 325 MG Tablet 650 MG PO (21:45)
--- NOTE | 2020-11-03 23:08 | PCS.PANDOC ---
PANDEMIC DOCUMENTATION INITIATED: Date: 11/03/20 Time: 1431
[2020-11-04] VITALS (9 sets, daily range): BP systolic 123–138; BP diastolic 76–92; PULSE 87–110; RESP 16–18; TEMP 36.8–37.6; O2SAT 97–99
[2020-11-04] MEDS: Phenobarbital 32.4 MG Tablet 64.8 MG PO ×6 (00:53→21:43)
[2020-11-04] MEDS: Ondansetron 8 MG Tablet PO (00:53)
[2020-11-04] MEDS: LORazepam 1 MG Tablet 2 MG PO (01:00)
[2020-11-04 05:47] LABS: Anion Gap 11 (5-15); BUN 12 mg/dL (7-18); BUN/Creat Ratio 20.4 RATIO (10-20); Calcium,Total 7.6 mg/dL (8.5-10.1); Chloride 97 mmol/L (98-107); Creatinine, Serum 0.59 mg/dL (0.70-1.30); EST Glomerular Filtration Rate 154 mL/min (>60); Est Glom Filt Rate - Afr Amer 186 mL/min (>60); Estimated Creatinine Clearance 155.04 ml/min; Glucose 66 mg/dL (74-106); Magnesium 2.3 mg/dL (1.6-2.6); Potassium 2.9 mmol/L (3.5-5.1); Sodium Level 132 mmol/L (136-145)
--- NOTE | 2020-11-04 06:13 | NURSING ---
PATIENT BLOOD SUGAR 66 ON LABS, GIVEN ORANGE JUICE TO DRINK AT THIS TIME. DENIES FEELING LIKE BLOOD SUGAR WAS LOW.
[2020-11-04] MEDS: Heparin Injection (Vial) 5,000 UNIT/ML VIAL 5000 UNIT SC ×2 (08:48→21:44)
[2020-11-04] MEDS: Potassium Chloride 10mEq/100mL 10 MEQ/100 ML IV.SOLN. 100 MEQ IV BOLUS ×4 (08:50→12:50)
[2020-11-04] MEDS: Folic Acid 1 MG Tablet PO (08:50)
[2020-11-04] MEDS: Acetaminophen 325 MG Tablet 650 MG PO (08:50)
[2020-11-04] MEDS: Thiamine Hydrochloride 100 MG Tablet PO (08:50)
--- NOTE | 2020-11-04 11:01 | PN_ITS ---
<Isaias Lu - Last Filed: 11/04/20 11:01> Patient Problems: Active and Suspected Problems (Last Reviewed 04/08/20 @ 17:[address] Simran Carranza DO) Encephalopathy (Acute) Hyponatremia (Acute) Reason for Visit: encephalopathy, alcohol withdrawal Subjective: Pt resting comfortably in bed upright no acute distress. Only complaint this morning is some residual rib aching. He has no shortness of breath or cough. He states he has no upper extremity tremor. His nausea has resolved at this point. He has no further complaints. He is planning to complete the alcohol detox taper. Vitals/I&O's: Vital Signs Temp Pulse Resp BP Pulse Ox 98.2 F 92 18 127/81 H 97 11/04/20 09:01 11/04/20 09:01 11/04/20 09:01 11/04/20 09:01 11/04/20 09:01 Oxygen Delivery Method Room Air Weight: 165 lb Body Mass Index (BMI) 21.2 Finger Stick Blood Glucose 146 Intake and Output for Last 24 Hours 11/02/20 11/03/20 11/04/20 23:59 23:59 23:59 Intake Total 1922.45 / 1922.45 2298.75 / 2298.75 Output Total 200 / 200 Balance 1722.45 / 1722.45 2298.75 / 2298.75 General: Alert, Oriented x3, Cooperative HEENT: Atraumatic, PERRLA, EOMI, Normocephalic Neck: Supple, No JVD, Negative Carotid Bruits Lungs: Clear to auscultation, Normal air movement Cardiovascular: Regular rate, No murmurs Abdomen: Bowel Sounds Present, Soft, Non Tender Extremities: No edema, Capillary Refill Less than 3 Seconds Skin: No rashes, No breakdown Musculoskeletal: No Tenderness to Palpation of Joints or Extremities Neurological: Cranial nerves II-XII grossly intact Psych/Mental Status: Normal Affect, Appropriate, Alert and oriented to time, place, person, mood and affect Microbiology Past 72 Hours 11/03/20 14:50 Mucosa - Nose SARS-CoV-2 Antigen (Rapid) - Final Laboratory Results 11/03/20 14:39: POC Glucose 146 H 11/03/20 14:40: WBC 7.7, RBC 3.43 L, Hgb 11.7 L, Hct 34.0 L, MCV 99.1 H, MCH 34.1 H, MCHC 34.4, RDW Std Deviation 46.7 H, RDW Coeff of Isabel 13.0, Plt Count 249, MPV 8.5, Immature Gran % (Auto) 0.100, Neut % (Auto) 81.3 H, Lymph % (Auto) 10.5 L, [place] % (Auto) 6.6, Eos % (Auto) 0.3, Baso % (Auto) 1.2 H, Absolute Neuts (auto) 6.3, Absolute Lymphs (auto) 0.81 L, Nucleated RBC % 0 11/03/20 14:40: PT 13.5, INR 1.1 11/03/20 14:40: Sodium 131 L, Potassium 3.0 L, Chloride 92 L, Carbon Dioxide 22.0, Anion Gap 17 H, BUN 16, Creatinine 1.05, Estim Creat Clear Calc 84.97, Est GFR (MDRD) Af Amer 95, Est GFR (MDRD) Non-Af 79, BUN/Creatinine Ratio 15.2, Glucose 131 H, Calcium 8.7, Total Bilirubin 0.70, AST 37, ALT 32, Alkaline Phosphatase 80, Troponin I < 0.015, Total Protein 8.7 H, Albumin 4.2, Globulin 4.5 H, Albumin/Globulin Ratio 0.9 11/03/20 14:40: Ethyl Alcohol < 3.0 11/03/20 14:40: Magnesium 1.4 L 11/03/20 14:40: Phosphorus 3.2 11/03/20 14:45: Lactic Acid 5.6 H* 11/03/20 14:45: Ammonia 28.0 11/03/20 16:00: Urine Color Yellow, Urine Clarity Clear, Urine pH 7.0, Ur Specific [place] 1.015, Urine Protein 30 H, Urine Glucose (UA) Normal, Urine Ketones 50 H, Urine Occult Blood Negative, Urine Nitrite Negative, Urine Bilirubin Negative, Urine Urobilinogen Normal, Ur Leukocyte Esterase 25 H, Urine RBC 0 SEEN, Urine WBC 0-5 SEEN, Ur Squamous Epith Cells 0 SEEN, Urine Bacteria 1+, Urine Mucus 0 SEEN 11/03/20 16:00: Urine Opiates Screen NEGATIVE, Urine Methadone Screen NEGATIVE, Ur Barbiturates Screen POSITIVE H, Ur Phencyclidine Scrn NEGATIVE, Ur Amphetamines Screen NEGATIVE, U Methamphetamin-MDMA NEGATIVE, U Benzodiazepines Scrn NEGATIVE, Urine Cocaine Screen NEGATIVE, U Cannabinoids Screen NEGATIVE, Ur Drug Screen Comment 11/04/20 04:54: Sodium 132 L, Potassium 2.9 L, Chloride 97 L, Carbon Dioxide 24.0, Anion Gap 11, BUN 12, Creatinine 0.59 L, Estim Creat Clear Calc 155.04, Est GFR (MDRD) Af Amer 186, Est GFR (MDRD) Non-Af 154, BUN/Creatinine Ratio 20.4 H, Glucose 66 L, Calcium 7.6 L, Magnesium 2.3 Current Medications Acetaminophen (Acetaminophen 325 Mg Tablet) 650 mg PO Q4H PRN PRN PRN Reason: fever, pain 1-10 Last Admin: 11/04/20 08:50 Dose: 650 mg Documented by: Folic Acid (Folic Acid 1 Mg Tablet) 1 mg PO DAILYCM [facility] Last Admin: 11/04/20 08:50 Dose: 1 mg Documented by: Heparin Sodium (Porcine) (Heparin Injection (Vial) 5,000 Unit/Ml Vial) 5,000 unit SC Q12 [facility] Last Admin: 11/04/20 08:48 Dose: 5,000 unit Documented by: Potassium Chloride 30 meq/ (Sodium Chloride) 1,015 mls @ 125 mls/hr IV .Q8H8M [facility] Last Infusion: 11/04/20 08:50 Dose: 0 mls/hr Documented by: Potassium Chloride () 10 meq in 100 mls @ 100 mls/hr IV BOLUS Q1H [facility] Stop: 11/04/20 11:59 Last Admin: 11/04/20 10:14 Dose: 100 mls/hr Documented by: Lorazepam (Lorazepam 1 Mg Tablet) 2 mg PO Q2H PRN PRN; Protocol PRN Reason: CIWA score > 8 but <15 Last Admin: 11/04/20 01:00 Dose: 2 mg Documented by: Lorazepam (Lorazepam 1 Mg Tablet) 2 mg PO UD PRN; Protocol PRN Reason: CIWA score >/=15. Lorazepam (Lorazepam 2 Mg/Ml Syringe) 2 mg IV Q2H PRN PRN; Protocol PRN Reason: CIWA score > 8 but <15 Lorazepam (Lorazepam 2 Mg/Ml Syringe) 2 mg IV UD PRN; Protocol PRN Reason: CIWA score >/=15. Nicotine (Nicotine 21 Mg Patch) 21 mg TD DAILY [facility] Last Admin: 11/04/20 08:47 Dose: 21 mg Documented by: Ondansetron HCl (Ondansetron 4 Mg/2 Ml Vial) 4 mg IV Q6H PRN PRN PRN Reason: nausea and emesis Ondansetron HCl (Ondansetron 8 Mg Tablet) 8 mg PO Q6H PRN PRN PRN Reason: NAUSEA Last Admin: 11/04/20 00:53 Dose: 8 mg Documented by: Phenobarbital (Phenobarbital 32.4 Mg Tablet) 97.2 mg PO Q4H ROBERT; Taper Stop: 11/08/20 00:59 Last Admin: 11/04/20 08:50 Dose: 97.2 mg Documented by: Promethazine HCl (Promethazine 25 Mg/Ml Syringe) 6.25 mg IV Q4H PRN PRN PRN Reason: NAUSEA/VOMITING Last Admin: 11/03/20 21:30 Dose: 6.25 mg Documented by: Sodium Chloride (0.9% Saline Lock 10 Ml Syringe) 10 - 40 ml IV UD PRN PRN Reason: SALINE FLUSH Last Admin: 11/03/20 21:30 Dose: 40 ml Documented by: Thiamine HCl (Thiamine Hydrochloride 100 Mg Tablet) 100 mg PO DAILYCM [facility] Last Admin: 11/04/20 08:50 Dose: 100 mg Documented by: STROKE Vital Signs/Narrative: Vital Signs Temp Pulse Resp BP Pulse Ox 11/04/20 09:01 98.2 F 92 18 127/81 H 97 Medical Necessity - Tobacco Use Smoking Status: Current some day smoker Tobacco Use: Cigarettes Assessment/Plan All Active Problems (Last Reviewed 04/08/20 @ 17:[address] Simran Carranza, DO) Anemia (Acute) Suspected COVID-19 virus infection (Acute) Encephalopathy (Acute) Hyponatremia (Acute) Hypokalemia (Acute) Hypoxia (Acute) 1. Acute metabolic Encephalopathy - unclear etiology. Pt is a heavy drinker who has not drank in two days. He was found unconscious and was initially very confused in the ER, now more lucid. Possibly had an alcohol withdrawal seizure - he has had seizure in the past but is not currently on anti epileptics. May also have some degree of Delirium tremens. Start phenobarb taper -His acute encephalopathy is resolved at this point. 2. Alcoholism with withdrawal - pt desires to detox. Continue phenobarbital taper. Last drink 2 days ago. Hx mulitple ICU admissions for detox. Hx seizure. -last detox here he was discharged on October 23. Provide folate, thiamine. Continue CIWA protocol. 3. Hyponatremia-likely secondary to alcoholism. Ongoing hypokalemia. Will replete. Mag and Phos normal. 4. Nicotine abuse - patch DVT ppx: heparin DC plannin referral This patient was seen by Isaias Lu PA-C under the supervision of Dr. Melton <Loly Melton - Last Filed: 11/04/20 14:21> Vitals/I&O's: Vital Signs Temp Pulse Resp BP Pulse Ox 98.2 F 92 18 127/81 H 97 11/04/20 09:01 11/04/20 09:01 11/04/20 09:01 11/04/20 09:01 11/04/20 09:01 Oxygen Delivery Method Room Air Weight: 165 lb Body Mass Index (BMI) 21.2 Finger Stick Blood Glucose 146 Intake and Output for Last 24 Hours 11/02/20 11/03/20 11/04/20 23:59 23:59 23:59 Intake Total 1922.45 / 1922.45 2838.75 / 2838.75 Output Total 200 / 200 650 / 650 Balance 1722.45 / 1722.45 2188.75 / 2188.75 Microbiology Past 72 Hours 11/03/20 14:50 Mucosa - Nose SARS-CoV-2 Antigen (Rapid) - Final Laboratory Results 11/03/20 14:39: POC Glucose 146 H 11/03/20 14:40: WBC 7.7, RBC 3.43 L, Hgb 11.7 L, Hct 34.0 L, MCV 99.1 H, MCH 34.1 H, MCHC 34.4, RDW Std Deviation 46.7 H, RDW Coeff of Isabel 13.0, Plt Count 249, MPV 8.5, Immature Gran % (Auto) 0.100, Neut % (Auto) 81.3 H, Lymph % (Auto) 10.5 L, [place] % (Auto) 6.6, Eos % (Auto) 0.3, Baso % (Auto) 1.2 H, Absolute Neuts (auto) 6.3, Absolute Lymphs (auto) 0.81 L, Nucleated RBC % 0 11/03/20 14:40: PT 13.5, INR 1.1 11/03/20 14:40: Sodium 131 L, Potassium 3.0 L, Chloride 92 L, Carbon Dioxide 22.0, Anion Gap 17 H, BUN 16, Creatinine 1.05, Estim Creat Clear Calc 84.97, Est GFR (MDRD) Af Amer 95, Est GFR (MDRD) Non-Af 79, BUN/Creatinine Ratio 15.2, Glucose 131 H, Calcium 8.7, Total Bilirubin 0.70, AST 37, ALT 32, Alkaline Phosphatase 80, Troponin I < 0.015, Total Protein 8.7 H, Albumin 4.2, Globulin 4.5 H, Albumin/Globulin Ratio 0.9 11/03/20 14:40: Ethyl Alcohol < 3.0 11/03/20 14:40: Magnesium 1.4 L 11/03/20 14:40: Phosphorus 3.2 11/03/20 14:45: Lactic Acid 5.6 H* 11/03/20 14:45: Ammonia 28.0 11/03/20 16:00: Urine Color Yellow, Urine Clarity Clear, Urine pH 7.0, Ur Specific [place] 1.015, Urine Protein 30 H, Urine Glucose (UA) Normal, Urine Ketones 50 H, Urine Occult Blood Negative, Urine Nitrite Negative, Urine Bilirubin Negative, Urine Urobilinogen Normal, Ur Leukocyte Esterase 25 H, Urine RBC 0 SEEN, Urine WBC 0-5 SEEN, Ur Squamous Epith Cells 0 SEEN, Urine Bacteria 1+, Urine Mucus 0 SEEN 11/03/20 16:00: Urine Opiates Screen NEGATIVE, Urine Methadone Screen NEGATIVE, Ur Barbiturates Screen POSITIVE H, Ur Phencyclidine Scrn NEGATIVE, Ur Amphetamines Screen NEGATIVE, U Methamphetamin-MDMA NEGATIVE, U Benzodiazepines Scrn NEGATIVE, Urine Cocaine Screen NEGATIVE, U Cannabinoids Screen NEGATIVE, Ur Drug Screen Comment 11/04/20 04:54: Sodium 132 L, Potassium 2.9 L, Chloride 97 L, Carbon Dioxide 24.0, Anion Gap 11, BUN 12, Creatinine 0.59 L, Estim Creat Clear Calc 155.04, Est GFR (MDRD) Af Amer 186, Est GFR (MDRD) Non-Af 154, BUN/Creatinine Ratio 20.4 H, Glucose 66 L, Calcium 7.6 L, Magnesium 2.3 Current Medications Acetaminophen (Acetaminophen 325 Mg Tablet) 650 mg PO Q4H PRN PRN PRN Reason: fever, pain 1-10 Last Admin: 11/04/20 08:50 Dose: 650 mg Documented by: Folic Acid (Folic Acid 1 Mg Tablet) 1 mg PO DAILYCM [facility] Last Admin: 11/04/20 08:50 Dose: 1 mg Documented by: Heparin Sodium (Porcine) (Heparin Injection (Vial) 5,000 Unit/Ml Vial) 5,000 unit SC Q12 [facility] Last Admin: 11/04/20 08:48 Dose: 5,000 unit Documented by: Potassium Chloride 30 meq/ (Sodium Chloride) 1,015 mls @ 125 mls/hr IV .Q8H8M [facility] Last Admin: 11/04/20 14:06 Dose: 125 mls/hr Documented by: Lorazepam (Lorazepam 1 Mg Tablet) 2 mg PO Q2H PRN PRN; Protocol PRN Reason: CIWA score > 8 but <15 Last Admin: 11/04/20 01:00 Dose: 2 mg Documented by: Lorazepam (Lorazepam 1 Mg Tablet) 2 mg PO UD PRN; Protocol PRN Reason: CIWA score >/=15. Lorazepam (Lorazepam 2 Mg/Ml Syringe) 2 mg IV Q2H PRN PRN; Protocol PRN Reason: CIWA score > 8 but <15 Lorazepam (Lorazepam 2 Mg/Ml Syringe) 2 mg IV UD PRN; Protocol PRN Reason: CIWA score >/=15. Nicotine (Nicotine 21 Mg Patch) 21 mg TD DAILY [facility] Last Admin: 11/04/20 08:47 Dose: 21 mg Documented by: Ondansetron HCl (Ondansetron 4 Mg/2 Ml Vial) 4 mg IV Q6H PRN PRN PRN Reason: nausea and emesis Ondansetron HCl (Ondansetron 8 Mg Tablet) 8 mg PO Q6H PRN PRN PRN Reason: NAUSEA Last Admin: 11/04/20 00:53 Dose: 8 mg Documented by: Phenobarbital (Phenobarbital 32.4 Mg Tablet) 97.2 mg PO Q4H [facility]; Taper Stop: 11/08/20 00:59 Last Admin: 11/04/20 12:51 Dose: 97.2 mg Documented by: Promethazine HCl (Promethazine 25 Mg/Ml Syringe) 6.25 mg IV Q4H PRN PRN PRN Reason: NAUSEA/VOMITING Last Admin: 11/03/20 21:30 Dose: 6.25 mg Documented by: Sodium Chloride (0.9% Saline Lock 10 Ml Syringe) 10 - 40 ml IV UD PRN PRN Reason: SALINE FLUSH Last Admin: 11/03/20 21:30 Dose: 40 ml Documented by: Thiamine HCl (Thiamine Hydrochloride 100 Mg Tablet) 100 mg PO DAILYCM [facility] Last Admin: 11/04/20 08:50 Dose: 100 mg Documented by: Assessment/Plan Patient seen by Isaias Lu PA-C under my supervision. Patient seen and examined. He was admitted for acute metabolic encephalopathy after he was found in the street unconscious holding on an open bottle of vodka. When he was brought to the ED, he was very confused and subsequently became more alert and informed the admitting physician he was walking on the street to go home and tripped and fell. He did not strike his head. He said he may have had a seizure but he was not sure. Patient has had multiple admissions for alcohol detox and stated his last drink was about 3 days ago. He was admitted to be managed for acute metabolic encephalopathy due to probable alcohol withdrawal seizure and also for acute alcohol withdrawal. Patient was lying in bed comfortably and had no complaints. He admitted to heavily drinking but again stated that his last drink was about 2 days ago. Review of systems otherwise negative. He has remained hemodynamically stable. Blood work is significant for potassium of 2.9 today and creatinine of 0.59. O/E: Vital Signs Temp Pulse Resp BP Pulse Ox 98.2 F 92 18 127/81 H 97 11/04/20 09:01 11/04/20 09:01 11/04/20 09:01 11/04/20 09:01 11/04/20 09:01 General: Alert, Oriented x3, Cooperative HEENT: Atraumatic, PERRLA, EOMI, Normocephalic Neck: Supple, No JVD, Negative Carotid Bruits Lungs: Clear to auscultation, Normal air movement Cardiovascular: Regular rate, No murmurs Abdomen: Bowel Sounds Present, Soft, Non Tender Extremities: No edema, Capillary Refill Less than 3 Seconds Skin: No rashes, No breakdown Musculoskeletal: No Tenderness to Palpation of Joints or Extremities Neurological: Cranial nerves II-XII grossly intact Psych/Mental Status: Normal Affect, Appropriate, Alert and oriented to time, place, person, mood and affect Plan continue acute alcohol withdrawal protocol with phenobarbital. CIWA score this morning is 4. Replace potassium aggressively. Continue thiamine, folic acid and multivitamin. Sodium is also low at 132 which is likely due to beer potomania, during his history of heavy alcohol use. Nicotine patch for nicotine dependence. Case management on board to help with discharge planning. Rest as per Isaias Lu PA-C's note, which I have reviewed and endorsed. Inpatient E&M: 15350 Subs Hosp L2
--- NOTE | 2020-11-04 13:10 | CASEMGMT ---
SW spoke with patient. Introduced self and role at [facility]. SW asked patient if he would like to talk with Fifi from [facility] again. He said he would. SW told him SW will contact her. WILLIAM called Fifi at [facility] and let her know this information. Anisa SANTIAGO
[2020-11-04] MEDS: Polyethylene Glycol 3350 17 GM PACKET PO (17:34)
[2020-11-04] MEDS: 0.9% Saline Lock 10 ML Syringe IV (21:44)
[2020-11-05] VITALS (11 sets, daily range): BP systolic 136–148; BP diastolic 84–99; PULSE 68–95; RESP 14–18; TEMP 36.8–37.3; O2SAT 97–99
[2020-11-05] MEDS: Phenobarbital 32.4 MG Tablet 64.8 MG PO ×6 (01:45→20:50)
[2020-11-05 06:53] LABS: Absolute Lymphocyte Count 1.63 X10^3/uL (0.83-4.51); Absolute Neutrophil Count 3.1 X10^3/uL (2.0-7.7); Basophil# 0.06 X10^3/uL; Basophil% 1.1 % (0-1); Eosinophils% 5.5 % (0-5); Hemoglobin 10.7 g/dL (13.0-16.5); Lymphocyte # 1.63 X10^3/ul (4.0); Mean Corp Hgb Conc 33.4 g/dL (32-36); Mean Corpuscular Hgb 33.1 pg (27.0-32.0); Mean Corpuscular Volume 99.1 fL (80-94); Mean Platelet Vol. 9.5 fl (6.2-12.0); Monocyte# 0.34 X10^3/uL; Monocyte% 6.3 % (0-10); NRBC Flagged by Analyzer 0 % (0-5); Neutrophil # 3.08 X10^3/uL (2.7-7.7); Neutrophil % 56.7 % (47-70); Platelet Count 153 K/mm3 (150-450); RBC Distribution Width CV 12.7 % (11.6-14.6); RBC Distribution Width SD 46.1 fl (35.1-43.9); Red Blood Count 3.23 M/mm3 (4.6-6.2); White Blood Count 5.4 K/mm3 (4.4-11.0)
[2020-11-05 07:26] LABS: Anion Gap 6 (5-15); BUN 9 mg/dL (7-18); BUN/Creat Ratio 15.7 RATIO (10-20); Calcium,Total 7.9 mg/dL (8.5-10.1); Chloride 104 mmol/L (98-107); Creatinine, Serum 0.58 mg/dL (0.70-1.30); EST Glomerular Filtration Rate 158 mL/min (>60); Est Glom Filt Rate - Afr Amer 191 mL/min (>60); Estimated Creatinine Clearance 157.72 ml/min; Glucose 95 mg/dL (74-106); Magnesium 1.9 mg/dL (1.6-2.6); Potassium 3.5 mmol/L (3.5-5.1); Sodium Level 134 mmol/L (136-145)
--- NOTE | 2020-11-05 08:55 | CASEMGMT ---
Cherrie from came to see patient this am. She scheduled an appt for him at on Nov 10 at 1415. Anisa ERICKSON MSW
--- NOTE | 2020-11-05 09:09 | ADDICTION ---
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 PT A/Ox4 and [facility]. He is scheduled to meet with a counselor on 11/12/20 @2:15pm and is amiable to this appointment.
[2020-11-05] MEDS: Heparin Injection (Vial) 5,000 UNIT/ML VIAL 5000 UNIT SC ×2 (09:14→20:50)
[2020-11-05] MEDS: Folic Acid 1 MG Tablet PO (09:14)
[2020-11-05] MEDS: Thiamine Hydrochloride 100 MG Tablet PO (09:14)
--- NOTE | 2020-11-05 11:42 | PCM.PROGNOTE ---
<Yuly Lindsay REIMBURSEMENT COUNSELOR - Last Filed: 11/05/20 11:47> Patient Problems: Active and Suspected Problems (Last Reviewed 04/08/20 @ 17:[address] Simran Carranza DO) Encephalopathy (Acute) Hyponatremia (Acute) Subjective: Patient seen and examined. Denies significant withdrawal symptoms. Patient met with [employer] representative this morning, plans to continue outpatient follow-up. He has an appointment with counselor 11/12/20. - Physical Exam Vitals/I&O's: Vital Signs Temp Pulse Resp BP Pulse Ox 98.7 F 88 14 142/94 H 99 11/05/20 09:22 11/05/20 11:00 11/05/20 09:22 11/05/20 09:22 11/05/20 09:22 Oxygen Delivery Method Room Air Weight: 165 lb Body Mass Index (BMI) 21.2 Finger Stick Blood Glucose 146 Intake and Output for Last 24 Hours 11/03/20 11/04/20 11/05/20 23:59 23:59 23:59 Intake Total 1922.45 / 1922.45 3993.75 / 4473.75 1927.5 / 1927.5 Output Total 200 / 200 875 / 875 1000 / 1000 Balance 1722.45 / 1722.45 3118.75 / 3598.75 927.5 / 927.5 General: Alert, Oriented x3, Cooperative HEENT: Atraumatic, PERRLA, EOMI, Normocephalic Neck: Supple, No JVD, Negative Carotid Bruits Lungs: Clear to auscultation, Normal air movement Cardiovascular: Regular rate, No murmurs Abdomen: Bowel Sounds Present, Soft, Non Tender Extremities: No clubbing, No cyanosis, No edema, Capillary Refill Less than 3 Seconds Skin: No rashes, No breakdown Musculoskeletal: No Tenderness to Palpation of Joints or Extremities Neurological: Cranial nerves II-XII grossly intact, Neuro grossly intact Psych/Mental Status: Normal Affect, Appropriate Microbiology Past 72 Hours 11/03/20 14:50 Mucosa - Nose SARS-CoV-2 Antigen (Rapid) - Final Laboratory Results 11/05/20 05:40: WBC 5.4, RBC 3.23 L, Hgb 10.7 L, Hct 32.0 L, MCV 99.1 H, MCH 33.1 H, MCHC 33.4, RDW Std Deviation 46.1 H, RDW Coeff of Isabel 12.7, Plt Count 153, MPV 9.5, Immature Gran % (Auto) 0.400, Neut % (Auto) 56.7, Lymph % (Auto) 30.0, [place] % (Auto) 6.3, Eos % (Auto) 5.5 H, Baso % (Auto) 1.1 H, Absolute Neuts (auto) 3.1, Absolute Lymphs (auto) 1.63, Nucleated RBC % 0 11/05/20 05:40: Sodium 134 L, Potassium 3.5, Chloride 104, Carbon Dioxide 24.0, Anion Gap 6, BUN 9, Creatinine 0.58 L, Estim Creat Clear Calc 157.72, Est GFR (MDRD) Af Amer 191, Est GFR (MDRD) Non-Af 158, BUN/Creatinine Ratio 15.7, Glucose 95, Calcium 7.9 L, Magnesium 1.9 Current Medications Acetaminophen (Acetaminophen 325 Mg Tablet) 650 mg PO Q4H PRN PRN PRN Reason: fever, pain 1-10 Last Admin: 11/04/20 08:50 Dose: 650 mg Documented by: Folic Acid (Folic Acid 1 Mg Tablet) 1 mg PO DAILYCM [facility] Last Admin: 11/05/20 09:14 Dose: 1 mg Documented by: Heparin Sodium (Porcine) (Heparin Injection (Vial) 5,000 Unit/Ml Vial) 5,000 unit SC Q12 [facility] Last Admin: 11/05/20 09:14 Dose: 5,000 unit Documented by: Potassium Chloride 30 meq/ (Sodium Chloride) 1,015 mls @ 125 mls/hr IV .Q8H8M [facility] Last Admin: 11/05/20 09:13 Dose: 125 mls/hr Documented by: Lorazepam (Lorazepam 1 Mg Tablet) 2 mg PO Q2H PRN PRN; Protocol PRN Reason: CIWA score > 8 but <15 Last Admin: 11/04/20 01:00 Dose: 2 mg Documented by: Lorazepam (Lorazepam 1 Mg Tablet) 2 mg PO UD PRN; Protocol PRN Reason: CIWA score >/=15. Lorazepam (Lorazepam 2 Mg/Ml Syringe) 2 mg IV Q2H PRN PRN; Protocol PRN Reason: CIWA score > 8 but <15 Lorazepam (Lorazepam 2 Mg/Ml Syringe) 2 mg IV UD PRN; Protocol PRN Reason: CIWA score >/=15. Magnesium Hydroxide (Magnesium Hydroxide 30 Ml Udc) 30 ml PO DAILY PRN PRN Reason: Constipation Nicotine (Nicotine 21 Mg Patch) 21 mg TD DAILY [facility] Last Admin: 11/05/20 09:32 Dose: 21 mg Documented by: Ondansetron HCl (Ondansetron 4 Mg/2 Ml Vial) 4 mg IV Q6H PRN PRN PRN Reason: nausea and emesis Ondansetron HCl (Ondansetron 8 Mg Tablet) 8 mg PO Q6H PRN PRN PRN Reason: NAUSEA Last Admin: 11/04/20 00:53 Dose: 8 mg Documented by: Phenobarbital (Phenobarbital 32.4 Mg Tablet) 64.8 mg PO Q4H [facility]; Taper Stop: 11/08/20 00:59 Last Admin: 11/05/20 09:31 Dose: 64.8 mg Documented by: Polyethylene Glycol (Polyethylene Glycol 3350 17 Gm Packet) 17 gm PO DAILY PRN PRN Reason: Constipation Last Admin: 11/04/20 17:34 Dose: 17 gm Documented by: Promethazine HCl (Promethazine 25 Mg/Ml Syringe) 6.25 mg IV Q4H PRN PRN PRN Reason: NAUSEA/VOMITING Last Admin: 11/03/20 21:30 Dose: 6.25 mg Documented by: Senna/Docusate Sodium (Senna/Docusate Sodium 1 Tablet) 1 tablet PO DAILY PRN PRN PRN Reason: CONSTIPATION Sodium Chloride (0.9% Saline Lock 10 Ml Syringe) 10 - 40 ml IV UD PRN PRN Reason: SALINE FLUSH Last Admin: 11/04/20 21:44 Dose: 10 ml Documented by: Thiamine HCl (Thiamine Hydrochloride 100 Mg Tablet) 100 mg PO DAILYCM [facility] Last Admin: 11/05/20 09:14 Dose: 100 mg Documented by: Medical Necessity - Tobacco Use Smoking Status: Current some day smoker Tobacco Use: Cigarettes Assessment/Plan All Active Problems (Last Reviewed 04/08/20 @ 17:[address] Simran Carranza DO) Anemia (Acute) Suspected COVID-19 virus infection (Acute) Encephalopathy (Acute) Hyponatremia (Acute) Hypokalemia (Acute) Hypoxia (Acute) 1. Acute alcohol withdrawal, chronic alcohol dependence-on phenobarbital taper. Continue CIWA/Ativan protocol. Folate, thiamine, multivitamin supplementation. [facility] met with patient. He has outpatient follow-up with counselor 11/12/2020 at 2:15 PM. 2. Hyponatremia/hypomagnesia/hypokalemia-replace per protocol, improved. Trend labs. 3. Tobacco dependence-encouraged cessation. DVT prophylaxis-Heparin subcu Discharge planning: Likely discharge in a.m. if patient remains stable with further outpatient follow-up as scheduled. This patient was seen by STUART Garcia under the supervision of Dr. Melton. <Loly Melton - Last Filed: 11/05/20 14:54> - Physical Exam Vitals/I&O's: Vital Signs Temp Pulse Resp BP Pulse Ox 99.1 F 83 16 136/84 H 97 11/05/20 13:33 11/05/20 13:33 11/05/20 13:33 11/05/20 13:33 11/05/20 13:33 Oxygen Delivery Method Room Air Weight: 165 lb Body Mass Index (BMI) 21.2 Finger Stick Blood Glucose 146 Intake and Output for Last 24 Hours 11/03/20 11/04/20 11/05/20 23:59 23:59 23:59 Intake Total 1922.45 / 1922.45 3993.75 / 4473.75 1927.5 / 1927.5 Output Total 200 / 200 875 / 875 1000 / 1000 Balance 1722.45 / 1722.45 3118.75 / 3598.75 927.5 / 927.5 Microbiology Past 72 Hours 11/03/20 14:50 Mucosa - Nose SARS-CoV-2 Antigen (Rapid) - Final Laboratory Results 11/05/20 05:40: WBC 5.4, RBC 3.23 L, Hgb 10.7 L, Hct 32.0 L, MCV 99.1 H, MCH 33.1 H, MCHC 33.4, RDW Std Deviation 46.1 H, RDW Coeff of Isabel 12.7, Plt Count 153, MPV 9.5, Immature Gran % (Auto) 0.400, Neut % (Auto) 56.7, Lymph % (Auto) 30.0, [place] % (Auto) 6.3, Eos % (Auto) 5.5 H, Baso % (Auto) 1.1 H, Absolute Neuts (auto) 3.1, Absolute Lymphs (auto) 1.63, Nucleated RBC % 0 11/05/20 05:40: Sodium 134 L, Potassium 3.5, Chloride 104, Carbon Dioxide 24.0, Anion Gap 6, BUN 9, Creatinine 0.58 L, Estim Creat Clear Calc 157.72, Est GFR (MDRD) Af Amer 191, Est GFR (MDRD) Non-Af 158, BUN/Creatinine Ratio 15.7, Glucose 95, Calcium 7.9 L, Magnesium 1.9 Current Medications Acetaminophen (Acetaminophen 325 Mg Tablet) 650 mg PO Q4H PRN PRN PRN Reason: fever, pain 1-10 Last Admin: 11/04/20 08:50 Dose: 650 mg Documented by: Folic Acid (Folic Acid 1 Mg Tablet) 1 mg PO DAILYCM [facility] Last Admin: 11/05/20 09:14 Dose: 1 mg Documented by: Heparin Sodium (Porcine) (Heparin Injection (Vial) 5,000 Unit/Ml Vial) 5,000 unit SC Q12 [facility] Last Admin: 11/05/20 09:14 Dose: 5,000 unit Documented by: Potassium Chloride 30 meq/ (Sodium Chloride) 1,015 mls @ 125 mls/hr IV .Q8H8M [facility] Last Admin: 11/05/20 09:13 Dose: 125 mls/hr Documented by: Lorazepam (Lorazepam 1 Mg Tablet) 2 mg PO Q2H PRN PRN; Protocol PRN Reason: CIWA score > 8 but <15 Last Admin: 11/04/20 01:00 Dose: 2 mg Documented by: Lorazepam (Lorazepam 1 Mg Tablet) 2 mg PO UD PRN; Protocol PRN Reason: CIWA score >/=15. Lorazepam (Lorazepam 2 Mg/Ml Syringe) 2 mg IV Q2H PRN PRN; Protocol PRN Reason: CIWA score > 8 but <15 Lorazepam (Lorazepam 2 Mg/Ml Syringe) 2 mg IV UD PRN; Protocol PRN Reason: CIWA score >/=15. Magnesium Hydroxide (Magnesium Hydroxide 30 Ml Udc) 30 ml PO DAILY PRN PRN Reason: Constipation Nicotine (Nicotine 21 Mg Patch) 21 mg TD DAILY [facility] Last Admin: 11/05/20 09:32 Dose: 21 mg Documented by: Ondansetron HCl (Ondansetron 4 Mg/2 Ml Vial) 4 mg IV Q6H PRN PRN PRN Reason: nausea and emesis Ondansetron HCl (Ondansetron 8 Mg Tablet) 8 mg PO Q6H PRN PRN PRN Reason: NAUSEA Last Admin: 11/04/20 00:53 Dose: 8 mg Documented by: Phenobarbital (Phenobarbital 32.4 Mg Tablet) 64.8 mg PO Q4H [facility]; Taper Stop: 11/08/20 00:59 Last Admin: 11/05/20 13:09 Dose: 64.8 mg Documented by: Polyethylene Glycol (Polyethylene Glycol 3350 17 Gm Packet) 17 gm PO DAILY PRN PRN Reason: Constipation Last Admin: 11/04/20 17:34 Dose: 17 gm Documented by: Promethazine HCl (Promethazine 25 Mg/Ml Syringe) 6.25 mg IV Q4H PRN PRN PRN Reason: NAUSEA/VOMITING Last Admin: 11/03/20 21:30 Dose: 6.25 mg Documented by: Senna/Docusate Sodium (Senna/Docusate Sodium 1 Tablet) 1 tablet PO DAILY PRN PRN PRN Reason: CONSTIPATION Sodium Chloride (0.9% Saline Lock 10 Ml Syringe) 10 - 40 ml IV UD PRN PRN Reason: SALINE FLUSH Last Admin: 11/04/20 21:44 Dose: 10 ml Documented by: Thiamine HCl (Thiamine Hydrochloride 100 Mg Tablet) 100 mg PO DAILYCM [facility] Last Admin: 11/05/20 09:14 Dose: 100 mg Documented by: Assessment/Plan Patient seen by Yuly DAVIDSON under my supervision Patient seen and examined. He has no complaints today. Patient said he wanted to be discharged home today. Was counseled that today is day 2 of his detox and advised to stay 1 more day which she was agreeable. Review of systems otherwise negative. He has remained hemodynamically stable. O/E: Vital Signs Temp Pulse Resp BP Pulse Ox 99.1 F 83 16 136/84 H 97 11/05/20 13:33 11/05/20 13:33 11/05/20 13:33 11/05/20 13:33 11/05/20 13:33 General: Alert, Oriented x3, Cooperative HEENT: Atraumatic, PERRLA, EOMI, Normocephalic Neck: Supple, No JVD, Negative Carotid Bruits Lungs: Clear to auscultation, Normal air movement Cardiovascular: Regular rate, No murmurs Abdomen: Bowel Sounds Present, Soft, Non Tender Extremities: No edema, Capillary Refill Less than 3 Seconds Skin: No rashes, No breakdown Musculoskeletal: No Tenderness to Palpation of Joints or Extremities Neurological: Cranial nerves II-XII grossly intact Psych/Mental Status: Normal Affect, Appropriate, Alert and oriented to time, place, person, mood and affect Plan is to continue acute alcohol withdrawal protocol with phenobarbital. CIWA score this morning is still 4, mainly for tremors. Hypokalemia has resolved. Continue thiamine, folic acid and multivitamin. Sodium is 134 today. Nicotine patch for nicotine dependence. Case management on board to help with discharge planning. Rest as per Yuly Lindsay REIMBURSEMENT COUNSELOR-C's note, which I have reviewed and endorsed. Inpatient E&M: [id number] Subs Hosp L2
[2020-11-06] VITALS (7 sets, daily range): BP systolic 142–155; BP diastolic 89–98; PULSE 78–99; RESP 16–18; TEMP 36.7–37.1; O2SAT 96–98
[2020-11-06] MEDS: Phenobarbital 32.4 MG Tablet 64.8 MG PO ×2 (01:07→06:57)
[2020-11-06 05:32] LABS: Absolute Lymphocyte Count 1.44 X10^3/uL (0.83-4.51); Absolute Neutrophil Count 3.6 X10^3/uL (2.0-7.7); Basophil# 0.06 X10^3/uL; Eosinophil# 0.31 X10^3/uL; Eosinophils% 5.4 % (0-5); Lymphocyte # 1.44 X10^3/ul (4.0); Mean Corp Hgb Conc 33.3 g/dL (32-36); Mean Corpuscular Hgb 33.4 pg (27.0-32.0); Mean Corpuscular Volume 100.3 fL (80-94); Mean Platelet Vol. 9.8 fl (6.2-12.0); Monocyte# 0.34 X10^3/uL; Monocyte% 5.9 % (0-10); NRBC Flagged by Analyzer 0 % (0-5); Neutrophil # 3.57 X10^3/uL (2.7-7.7); Neutrophil % 62.2 % (47-70); Platelet Count 119 K/mm3 (150-450); RBC Distribution Width CV 12.7 % (11.6-14.6); RBC Distribution Width SD 46.9 fl (35.1-43.9); Red Blood Count 3.29 M/mm3 (4.6-6.2); White Blood Count 5.8 K/mm3 (4.4-11.0)
[2020-11-06 05:49] LABS: Anion Gap 8 (5-15); BUN 13 mg/dL (7-18); BUN/Creat Ratio 21.2 RATIO (10-20); Calcium,Total 8.2 mg/dL (8.5-10.1); Chloride 105 mmol/L (98-107); Creatinine, Serum 0.61 mg/dL (0.70-1.30); EST Glomerular Filtration Rate 146 mL/min (>60); Est Glom Filt Rate - Afr Amer 177 mL/min (>60); Estimated Creatinine Clearance 149.96 ml/min; Glucose 92 mg/dL (74-106); Magnesium 1.5 mg/dL (1.6-2.6); Potassium 3.9 mmol/L (3.5-5.1); Sodium Level 135 mmol/L (136-145)
[2020-11-06] MEDS: Thiamine Hydrochloride 100 MG Tablet PO (08:07)
[2020-11-06] MEDS: Heparin Injection (Vial) 5,000 UNIT/ML VIAL 5000 UNIT SC (08:07)
[2020-11-06] MEDS: Folic Acid 1 MG Tablet PO (08:07)
--- NOTE | 2020-11-06 10:45 | DCINST_ITS ---
- Discharge Diagnoses Current Active Problems: Current Active and Chronic Problems (Last Reviewed 04/08/20 @ 17:[address] Simran Carranza DO) GERD (gastroesophageal reflux disease) (Chronic) Encephalopathy (Acute) Hyponatremia (Acute) Anxiety (Chronic) Alcohol withdrawal (Chronic) Tobacco dependency (Chronic) You will use the following diet at home:: No restrictions Discharge Activity: Return to Normal Activity Call your doctor if you observe: Shortness of breath, Dizziness, Fainting spells, Chest pain Allergies/Adverse Reactions: Allergies diphenhydramine HCl [From Benadryl] Adverse Reaction (Verified 10/20/20 12:53) Swelling mushroom Adverse Reaction (Verified 10/20/20 12:53) Vomiting Medications to take at Discharge Folic Acid 1 mg PO DAILY 11/03/20 Magnesium Oxide [Mgo] 400 mg PO TID 11/03/20 Na Biphos/Potassium Phosphate [Neutra-Phos Packet] 1 packet PO TID 11/03/20 Nicotine [Nicoderm Cq] 21 mg TD DAILY 11/03/20 Thiamine Hydrochloride [Vitamin B1] 100 mg PO DAILY 11/03/20 Primary Care Physician: Elmer Bolton MD [Primary Care Provider] - Please follow up with your Primary Care Physician in: 1 Week Test Results: Test results from this visit will be discussed in further detail at your follow- up appointment, if applicable. Please Follow Up With: [facility] When: 11/12/20 Proposed Discharge Date: 11/06/20
--- NOTE | 2020-11-06 10:46 | DS.PCM_ITS ---
<Yuly Lindsay FORGING DIES FINAL FINISHER - Last Filed: 11/06/20 10:50> Discharge Date and Diagnosis - Problem List Patient Problems: Active and Suspected Problems (Last Reviewed 04/08/20 @ 17:[address] Simran Carranza DO) Encephalopathy (Acute) Hyponatremia (Acute) Date of Admission: 11/03/20 Date of Discharge: 11/06/20 - Primary Discharge Diagnosis Acute Problems: Active Problems (Last Reviewed 04/08/20 @ 17:[address] Simran Carranza DO) 1. Acute alcohol withdrawal, chronic alcohol dependence 2. Hyponatremia/hypomagnesia/hypokalemia 3. Tobacco dependence - Secondary Discharge Diagnosis Chronic Problems: Chronic Problems (Last Reviewed 04/08/20 @ 17:[address] Simran Carranza DO) Elevated LFTs (Chronic) GERD (gastroesophageal reflux disease) (Chronic) Alcohol abuse (Chronic) Anxiety (Chronic) Thrombocytopenia (Chronic) Alcohol withdrawal (Chronic) Hypokalemia (Chronic) Arthritis of left hip (Chronic) Tobacco dependency (Chronic) Hospital Course and Treatment Imaging Results: Diagnostic Data Brain CT 11/03/20 14:42 IMPRESSION: Chronic involutional changes of the brain. Electronically Signed: Saeed Gan MD at 15:35 EST , Service support , Chest X-Ray 11/03/20 15:05 IMPRESSION: Normal x-ray examination of the chest. Electronically Signed: Saeed Gan MD at 15:24 EST , Service support , Operations: None Procedures: None Summary of Care Provided: The patient is a 50 year old M admitted 11/03/2020 due to confusion. 1. Acute alcohol withdrawal, chronic alcohol dependence-phenobarbital taper during admission. CIWA/Ativan protocol. Folate, thiamine, multivitamin supplementation. [facility] guest experience representative met with patient. He has outpatient follow-up with counselor 11/12/2020 at 2:15 PM. He has not had significant withdrawal symptoms during admission. Continue outpatient follow-up as scheduled. 2. Hyponatremia/hypomagnesia/hypokalemia-replaced per protocol, resolved. 3. Tobacco dependence-encouraged cessation. General: Alert, Oriented x3, Cooperative HEENT: Atraumatic, PERRLA, EOMI, Normocephalic Neck: Supple, No JVD, Negative Carotid Bruits Lungs: Clear to auscultation, Normal air movement Cardiovascular: Regular rate, No murmurs Abdomen: Bowel Sounds Present, Soft, Non Tender Extremities: No clubbing, No cyanosis, No edema, Capillary Refill Less than 3 Seconds Skin: No rashes, No breakdown Musculoskeletal: No Tenderness to Palpation of Joints or Extremities Neurological: Cranial nerves II-XII grossly intact, Neuro grossly intact Psych/Mental Status: Normal Affect, Appropriate Patient seen and examined prior to discharge. Physical assessment as noted above. Patient is stable for discharge with follow up recommendations as noted above. This patient was seen by STUART Garcia under the supervision of Dr. Melton. Patient Problems: Active and Suspected Problems (Last Reviewed 04/08/20 @ 17:[address] Simran Carranza DO) Encephalopathy (Acute) Hyponatremia (Acute) - Physical Exam Vitals/I&O's: Vital Signs Temp Pulse Resp BP Pulse Ox 98.7 F 78 16 142/89 H 97 11/06/20 08:19 11/06/20 08:19 11/06/20 08:19 11/06/20 08:19 11/06/20 08:19 Oxygen Delivery Method Room Air Weight: 165 lb Body Mass Index (BMI) 21.2 Finger Stick Blood Glucose 146 Intake and Output for Last 24 Hours 11/04/20 11/05/20 11/06/20 23:59 23:59 23:59 Intake Total 3993.75 / 4473.75 4325.42 / 4325.42 442.08 / 442.08 Output Total 875 / 875 3900 / 3900 1450 / 1450 Balance 3118.75 / 3598.75 425.42 / 425.42 -1007.92 / -1007.92 Microbiology Past 72 Hours 11/03/20 14:50 Mucosa - Nose SARS-CoV-2 Antigen (Rapid) - Final Laboratory Results 11/06/20 05:00: WBC 5.8, RBC 3.29 L, Hgb 11.0 L, Hct 33.0 L, MCV 100.3 H, MCH 33.4 H, MCHC 33.3, RDW Std Deviation 46.9 H, RDW Coeff of Isabel 12.7, Plt Count 119 L, MPV 9.8, Immature Gran % (Auto) 0.500, Neut % (Auto) 62.2, Lymph % (Auto) 25.0, [place] % (Auto) 5.9, Eos % (Auto) 5.4 H, Baso % (Auto) 1.0, Absolute Neuts (auto) 3.6, Absolute Lymphs (auto) 1.44, Nucleated RBC % 0 11/06/20 05:00: Sodium 135 L, Potassium 3.9, Chloride 105, Carbon Dioxide 22.0, Anion Gap 8, BUN 13, Creatinine 0.61 L, Estim Creat Clear Calc 149.96, Est GFR (MDRD) Af Amer 177, Est GFR (MDRD) Non-Af 146, BUN/Creatinine Ratio 21.2 H, Glucose 92, Calcium 8.2 L, Magnesium 1.5 L Current Medications Acetaminophen (Acetaminophen 325 Mg Tablet) 650 mg PO Q4H PRN PRN PRN Reason: fever, pain 1-10 Last Admin: 11/04/20 08:50 Dose: 650 mg Documented by: Folic Acid (Folic Acid 1 Mg Tablet) [facility] Last Admin: 11/06/20 08:07 Dose: 1 mg Documented by: Heparin Sodium (Porcine) (Heparin Injection (Vial) 5,000 Unit/Ml Vial) 5,000 unit SC Q12 [facility] Last Admin: 11/06/20 08:07 Dose: 5,000 unit Documented by: Potassium Chloride 30 meq/ (Sodium Chloride) 1,015 mls @ 125 mls/hr IV .Q8H8M [facility] Last Admin: 11/06/20 03:07 Dose: 125 mls/hr Documented by: Lorazepam (Lorazepam 1 Mg Tablet) 2 mg PO Q2H PRN PRN; Protocol PRN Reason: CIWA score > 8 but <15 Last Admin: 11/04/20 01:00 Dose: 2 mg Documented by: Lorazepam (Lorazepam 1 Mg Tablet) 2 mg PO UD PRN; Protocol PRN Reason: CIWA score >/=15. Lorazepam (Lorazepam 2 Mg/Ml Syringe) 2 mg IV Q2H PRN PRN; Protocol PRN Reason: CIWA score > 8 but <15 Lorazepam (Lorazepam 2 Mg/Ml Syringe) 2 mg IV UD PRN; Protocol PRN Reason: CIWA score >/=15. Magnesium Hydroxide (Magnesium Hydroxide 30 Ml Udc) 30 ml PO DAILY PRN PRN Reason: Constipation Nicotine (Nicotine 21 Mg Patch) 21 mg TD DAILY [facility] Last Admin: 11/06/20 08:07 Dose: 21 mg Documented by: Ondansetron HCl (Ondansetron 4 Mg/2 Ml Vial) 4 mg IV Q6H PRN PRN PRN Reason: nausea and emesis Ondansetron HCl (Ondansetron 8 Mg Tablet) 8 mg PO Q6H PRN PRN PRN Reason: NAUSEA Last Admin: 11/04/20 00:53 Dose: 8 mg Documented by: Phenobarbital (Phenobarbital 32.4 Mg Tablet) 64.8 mg PO Q6H [facility]; Taper Stop: 11/08/20 00:59 Last Admin: 11/06/20 06:57 Dose: 64.8 mg Documented by: Polyethylene Glycol (Polyethylene Glycol 3350 17 Gm Packet) 17 gm PO DAILY PRN PRN Reason: Constipation Last Admin: 11/04/20 17:34 Dose: 17 gm Documented by: Promethazine HCl (Promethazine 25 Mg/Ml Syringe) 6.25 mg IV Q4H PRN PRN PRN Reason: NAUSEA/VOMITING Last Admin: 11/03/20 21:30 Dose: 6.25 mg Documented by: Senna/Docusate Sodium (Senna/Docusate Sodium 1 Tablet) 1 tablet PO DAILY PRN PRN PRN Reason: CONSTIPATION Sodium Chloride (0.9% Saline Lock 10 Ml Syringe) 10 - 40 ml IV UD PRN PRN Reason: SALINE FLUSH Last Admin: 11/04/20 21:44 Dose: 10 ml Documented by: Thiamine HCl (Thiamine Hydrochloride 100 Mg Tablet) 100 mg PO DAILYCM [facility] Last Admin: 11/06/20 08:07 Dose: 100 mg Documented by: Discharge Diet: No Restrictions Discharge Activity: Return to Normal Activity Call your doctor if you observe: Shortness of breath, Dizziness, Fainting spells, Chest pain Home Medications: Medications to take at Discharge Folic Acid 1 mg PO DAILY 11/03/20 Magnesium Oxide [Mgo] 400 mg PO TID 11/03/20 Na Biphos/Potassium Phosphate [Neutra-Phos Packet] 1 packet PO TID 11/03/20 Nicotine [Nicoderm Cq] 21 mg TD DAILY 11/03/20 Thiamine Hydrochloride [Vitamin B1] 100 mg PO DAILY 11/03/20 Primary Care Physician: Elmer Bolton MD [Primary Care Provider] - Please follow up with your Primary Care Physician in: 1 Week Please Follow Up With: [facility] When: 11/12/20 Disposition: Home Minutes spent on discharge:: 35 Patient Condition:: Stable Medical Necessity - Tobacco Use Smoking Status: Current some day smoker Tobacco Use: Cigarettes Meaningful Use Info Meaningful Use Diagnoses (Choose all that apply): None applicable <Loly Melton - Last Filed: 11/06/20 16:20> Discharge Date and Diagnosis - Primary Discharge Diagnosis Acute Problems: Active Problems (Last Reviewed 04/08/20 @ 17:[address] Simran Carranza DO) Encephalopathy (Acute) Hyponatremia (Acute) - Secondary Discharge Diagnosis Chronic Problems: Chronic Problems (Last Reviewed 04/08/20 @ 17:[address] Simran Carranza DO) Elevated LFTs (Chronic) GERD (gastroesophageal reflux disease) (Chronic) Alcohol abuse (Chronic) Anxiety (Chronic) Thrombocytopenia (Chronic) Alcohol withdrawal (Chronic) Hypokalemia (Chronic) Arthritis of left hip (Chronic) Tobacco dependency (Chronic) Hospital Course and Treatment Summary of Care Provided: Patient seen by Yuly DAVIDSON under my supervision The patient is a 50 year old M with a PMh as outlined who was admitted for acute metabolic encephalopathy after he was found in the street unconscious holding on an open bottle of vodka. When he was brought to the ED, he was very confused and subsequently became more alert and informed the admitting physician he was walking on the street to go home and tripped and fell. He did not strike his head. He said he may have had a seizure but he was not sure. Patient has had multiple admissions for alcohol detox and stated his last drink was about 3 days ago. He was admitted to be managed for acute metabolic encephalopathy due to probable alcohol withdrawal seizure and also for acute alcohol withdrawal. He was started on alcohol withdrawal protocol with phenobarbital. Stay was comp licated by hypokalemia and hypomagnesemia which resolved with aggressive replacement. He was started on thiamine, multivitamin folic acid. Patient tolerated 3-day detox process well and also met with Alpesh Gutierrez and agreed to follow-up with them on outpatient basis. He remained stable and was discharged home on 11/06/2020. He is to follow-up with his PCP and also to follow-up with Alpesh Gtuierrez on outpatient basis. Patient seen and examined prior to discharge. He had no complaints and was eager to be discharged. Review systems otherwise negative. Labs and vitals reviewed. Home medication reviewed and reconciled. O/E: Vital Signs Temp Pulse Resp BP Pulse Ox 98.7 F 99 16 155/98 H 98 11/06/20 08:19 11/06/20 11:27 11/06/20 11:27 11/06/20 11:27 11/06/20 11:27 [] General: Alert, Oriented x3, Cooperative HEENT: Atraumatic, PERRLA, EOMI, Normocephalic Neck: Supple, No JVD, Negative Carotid Bruits Lungs: Clear to auscultation, Normal air movement Cardiovascular: Regular rate, No murmurs Abdomen: Bowel Sounds Present, Soft, Non Tender Extremities: No edema, Capillary Refill Less than 3 Seconds Skin: No rashes, No breakdown Musculoskeletal: No Tenderness to Palpation of Joints or Extremities Neurological: Cranial nerves II-XII grossly intact Psych/Mental Status: Normal Affect, Appropriate, Alert and oriented to time, place, person, mood and affect Plan is for discharge home today. Rest as per Yuly Lindsay FORGING DIES FINAL FINISHER-C's note which I have reviewed and endorsed. - Physical Exam Vitals/I&O's: Vital Signs Temp Pulse Resp BP Pulse Ox 98.7 F 99 16 155/98 H 98 11/06/20 08:19 11/06/20 11:27 11/06/20 11:27 11/06/20 11:27 11/06/20 11:27 Oxygen Delivery Method Room Air Weight: 165 lb Body Mass Index (BMI) 21.2 Finger Stick Blood Glucose 146 Intake and Output for Last 24 Hours 11/04/20 11/05/20 11/06/20 23:59 23:59 23:59 Intake Total 3993.75 / 4473.75 4325.42 / 4325.42 1561.08 / 1561.08 Output Total 875 / 875 3900 / 3900 1450 / 1450 Balance 3118.75 / 3598.75 425.42 / 425.42 111.08 / 111.08 Microbiology Past 72 Hours 11/03/20 14:50 Mucosa - Nose SARS-CoV-2 Antigen (Rapid) - Final Laboratory Results 11/06/20 05:00: WBC 5.8, RBC 3.29 L, Hgb 11.0 L, Hct 33.0 L, MCV 100.3 H, MCH 33.4 H, MCHC 33.3, RDW Std Deviation 46.9 H, RDW Coeff of Isabel 12.7, Plt Count 119 L, MPV 9.8, Immature Gran % (Auto) 0.500, Neut % (Auto) 62.2, Lymph % (Auto) 25.0, [place] % (Auto) 5.9, Eos % (Auto) 5.4 H, Baso % (Auto) 1.0, Absolute Neuts (auto) 3.6, Absolute Lymphs (auto) 1.44, Nucleated RBC % 0 11/06/20 05:00: Sodium 135 L, Potassium 3.9, Chloride 105, Carbon Dioxide 22.0, Anion Gap 8, BUN 13, Creatinine 0.61 L, Estim Creat Clear Calc 149.96, Est GFR (MDRD) Af Amer 177, Est GFR (MDRD) Non-Af 146, BUN/Creatinine Ratio 21.2 H, Glucose 92, Calcium 8.2 L, Magnesium 1.5 L Inpatient E&M: [id number] Disch Hosp
--- NOTE | 2020-11-06 10:54 | PHA.DC.MR ---
Pharmacy Service has performed discharge medication reconciliation for this patient. The patient's discharge medication list was reviewed for discrepancies and discrepancies were resolved. Home Medications Folic Acid 1 mg PO DAILY 11/03/20 Magnesium Oxide [Mgo] 400 mg PO TID 11/03/20 Na Biphos/Potassium Phosphate [Neutra-Phos Packet] 1 packet PO TID 11/03/20 Nicotine [Nicoderm Cq] 21 mg TD DAILY 11/03/20 Thiamine Hydrochloride [Vitamin B1] 100 mg PO DAILY 11/03/20
== END 2020-11-06 13:16 | disposition home or self-care (01) | DRG 775 ==
LOC: ED 15:24 → PCU 11-04 06:22
PROVIDERS: Family Medicine; Admitting Provider Internal Medicine; Emergency Provider Emergency Medicine; PCP Family Medicine; Visit Provider Student in an Organized Health Care Education/Training Program
CPT/HCPCS: 36415; 70450; 71045; 80048; 80053; 80307; 81001; 82077; 82140; 82962; 83605; 83735; 84100; 84484; 85025; 85610; 87426; 93005; 99285; 99406; J7030; J7040; A4216; J2405

== ENCOUNTER 2020-11-18 14:04 | Inpatient (IN) | payer MEDICAID, SELFPAY ==
[2020-11-03 16:40] VITALS: BMI 21.2
[2020-11-18 14:05] VITALS: BP 157/116; PULSE 121; RESP 18; TEMP 36.2; O2SAT 99; BMI 22.5
--- NOTE | 2020-11-18 14:18 | EKG12_ITS ---
Test Reason : SUBSTANCE ABUSE Blood Pressure : / mmHG Vent. Rate : 101 BPM Atrial Rate : 101 BPM P-R Int : 152 ms QRS Dur : 078 ms QT Int : 358 ms P-R-T Axes : 060 -19 040 degrees QTc Int : 464 ms Sinus tachycardia Otherwise normal ECG Confirmed by SRIKANTH PRICE, DONAVAN ([id number]), mapping editor HANNA COLLINS ([id number]) on 11/20/2020 8:44:40 AM Referred By: BEE Confirmed By:GWENDOLYN DUKE MD
--- NOTE | 2020-11-18 14:27 | RAD_ITS ---
STUDY: X-RAY CHEST REASON FOR EXAM: Male, 50 years old. TACHYCARDIA ETOH DETOX TECHNIQUE: Single AP portable view of the chest. COMPARISON: Comparison is made with prior study dated 05/03/2021. FINDINGS: Hyperinflation. The lungs are clear. There is no demonstrated pleural abnormality. Normal size heart. Normal mediastinum and melisa. Normal visualized pulmonary arteries. Normal visualized aortic arch and descending thoracic aorta. Normal visualized thoracic spine. Normal visualized ribs, clavicles, and shoulders. There is no demonstrated abnormality of the visualized soft tissue structures of the upper abdomen. RAD/Chest 1 View (Portable) IMPRESSION: Hyperinflation. The lungs are clear. Electronically Signed: Saeed Gan MD at 14:53 EST , Service support ,
--- NOTE | 2020-11-18 14:31 | ED.VIS.GEN ---
History of Present Illness Chief Complaint: Substance Abuse Informant: Patient Narrative: 1-year-old male with history of EtOH abuse presenting with withdrawal from alcohol. He states that his last drink was about an hour ago. He drank about a sixpack today. He admits to drinking some vodka as well. Patient states he is just detox from EtOH a couple of weeks ago at [facility]. He denies any drugs. He does admit to having some shortness of breath, shakes, and occultly walking. He believes this is all due to withdrawal as he had it in the past. He states other than shortness of breath he has no symptoms consistent with Covid?19. Patient has not had fever or chills. No change in taste and smell. - Past Medical History (1) Anemia Status: Chronic (2) Alcohol abuse Status: Chronic (3) Alcohol withdrawal Status: Chronic Past Medical History - Allergies and Home Meds Allergies/Adverse Reactions: Allergies diphenhydramine HCl [From Benadryl] Adverse Reaction (Verified 11/18/20 14:08) Swelling mushroom Adverse Reaction (Verified 11/18/20 14:08) Vomiting Primary Care Physician: Elmer Bolton MD [Primary Care Provider] - Prior records reviewed: Yes Past Medical History: - - Reviewed in problem list Surgical History: noncontributory, tonsillectomy Lives: Alone Smoking Status: Current every day smoker Alcohol: Heavy Drugs: None - Family History Sibling Family History: Reports: - - Thyroid disease. Maternal Family History: Reports: Hypertension, - - Thyroid disease. Paternal Family History: Reports: Diabetes Review of Systems General: Denies: Chills, Fever, Sweats Eyes: Denies: Visual changes - bilaterally, Diplopia ENT: Denies: Rhinorrhea, Sore throat Cardiovascular: Denies: Chest pain, Palpitations Respiratory: Reports: Dyspnea. Denies: Cough Gastrointestinal: Denies: Abdominal pain, Nausea, Vomiting Genitourinary: Denies: Dysuria, Hematuria Musculoskeletal: Denies: Myalgias, Arthralgias Skin: Denies: Rash, Abscess Neurological: Denies: Parasthesia, Numbness Psych: Reports: Anxiety. Denies: Suicidal thoughts, Suicidal ideations Physical Exam Vital Signs/Narrative: Vital Signs Temp Pulse Resp BP Pulse Ox 11/18/20 14:05 97.2 F L 121 H 18 157/116 H 99 General: Unkempt, No Acute Distress Head: Normocephalic, Atraumatic Eyes: Perrl, EOMI, Scleral icterus ENT: Moist mucous membranes. Negative for: Nasal congestion Cardiovascular: Regular rhythm, Tachycardia Respiratory: No distress, CTA bilaterally Extremities: Nontender, No edema Skin: Normal color, No rash. Negative for: Cyanosis, Diaphoresis, Jaundice Neurological: Alert, Oriented x3, Cranial nerves II-XII grossly intact Psychological: Normal affect, Normal Mood Diagnostic/Tx/Re-eval - Rhythm Strip Rhythm Strip: Sinus Rhythm Rate: 101 - Medical Decision Making 50-year-old male presenting in withdrawal for EtOH detox. He is initially hypertensive and tachycardic but after 2 mg of Ativan he feels improved. His CBC shows a stable hemoglobin platelets are slightly low however they are much higher than they were previously. Patient had Covid antigen due to his symptoms of shortness of breath and this was negative. Chest x-ray as interpreted by myself shows no acute cardiopulmonary process. EKG shows a sinus tachycardia without signs of acute ischemic changes interpreted by myself. The rest of patient's labs are pending including PT/INR, CMP, lipase, troponin, EtOH level, drug of abuse screen. These will be followed by the hospitalist on patient's admission. Patient stable for medical floor at this time. Impression: 1. EtOH abuse 2. EtOH withdrawal ED Disposition - Plan for ED Patient: Referrals: Elmer Bolton MD [Primary Care Provider] -
[2020-11-18 15:07] LABS: Absolute Lymphocyte Count 1.35 X10^3/uL (0.83-4.51); Absolute Neutrophil Count 2.8 X10^3/uL (2.0-7.7); Basophil# 0.06 X10^3/uL; Basophil% 1.2 % (0-1); Eosinophil# 0.19 X10^3/uL; Hemoglobin 12.5 g/dL (13.0-16.5); Lymphocyte # 1.35 X10^3/ul (4.0); Lymphocyte % 28.1 % (19-41); Mean Corp Hgb Conc 33.8 g/dL (32-36); Mean Corpuscular Hgb 33.6 pg (27.0-32.0); Mean Corpuscular Volume 99.5 fL (80-94); Mean Platelet Vol. 8.5 fl (6.2-12.0); Monocyte# 0.39 X10^3/uL; Monocyte% 8.1 % (0-10); NRBC Flagged by Analyzer 0 % (0-5); Neutrophil % 58.2 % (47-70); Platelet Count 113 K/mm3 (150-450); RBC Distribution Width CV 13.2 % (11.6-14.6); RBC Distribution Width SD 49.2 fl (35.1-43.9); Red Blood Count 3.72 M/mm3 (4.6-6.2); White Blood Count 4.8 K/mm3 (4.4-11.0)
[2020-11-18] MEDS: LORazepam 2 MG/ML Syringe IV (15:27)
[2020-11-18] MEDS: 0.9% Normal Saline 1,000 ML 1000 ML IV (15:27)
--- NOTE | 2020-11-18 16:15 | CM.ED ---
SOCIAL WORK Reason for Consult: ETOH Detox Patient presents to [facility] ER for detox from alcohol. Patient states just discharged from program about 2 weeks ago. Patient states due to issues with transportation was not able to follow up with [facility] appointment on 11/12/20. Patient reports lives close to [facility], but is unable to walk to agency as he is a fall risk. Support provided. Patient voices wishes to stop drinking. Call to [facility] Treatment Navigator. Unable to contact Treatment Navigator at this time. Will leave message for Fifi with [facility] updating on patient's admission. Plan: Admit to [facility], FORMING MILL OPERATOR, SALESPERSON [employer]
[2020-11-18 16:36] VITALS: BP 122/75; PULSE 95; RESP 14; O2SAT 98
[2020-11-18 16:58] LABS: Amphetamine Urine VISTA NEGATIVE (<1000 ng/mL); Barbiturate Urine VISTA POSITIVE (< 200 ng/mL); Benzodiazepine Urine VISTA NEGATIVE (< 200 ng/mL); Cocaine Urine VISTA NEGATIVE (< 300 ng/mL); Ecstacy Urine VISTA NEGATIVE (< 500 ng/mL); Methadone Urine VISTA NEGATIVE (< 300 ng/mL); PCP Urine VISTA NEGATIVE (< 25 ng/mL); THC Urine VISTA NEGATIVE (< 50 ng/mL); Vista UDS pH Range 6
[2020-11-18 17:06] VITALS: BP 123/75; PULSE 85; RESP 14; TEMP 36.8; O2SAT 99
--- NOTE | 2020-11-18 17:08 | ED.RN ---
withdraw evaluation completed prior to administering Ativan. signs of active withdraw have improved. shanika de leon rn [id number]
[2020-11-18 17:37] LABS: ALB/GLOB Ratio 0.9 RATIO (0.9-2.4); AST(SGOT) 37 U/L (15-37); Alanine Aminotransfer ALT/SGPT 23 U/L (16-61); Alkaline Phosphatase 90 U/L (45-117); Anion Gap 7 (5-15); BUN 7 mg/dL (7-18); BUN/Creat Ratio 10.7 RATIO (10-20); Calcium,Total 8.8 mg/dL (8.5-10.1); Chloride 104 mmol/L (98-107); Creatinine, Serum 0.65 mg/dL (0.70-1.30); EST Glomerular Filtration Rate 137 mL/min (>60); Est Glom Filt Rate - Afr Amer 165 mL/min (>60); Estimated Creatinine Clearance 149.86 ml/min; Globulin 4.3 g/dL (2.2-4.2); Glucose 80 mg/dL (74-106); Lipase 331 U/L (73-393); Potassium 3.3 mmol/L (3.5-5.1); Protein, Total 8.3 g/dL (6.4-8.2); Sodium Level 138 mmol/L (136-145)
--- NOTE | 2020-11-18 18:39 | CM.ED ---
SOCIAL WORK Call to Fifi with [facility]. Left voicemail on confidential line updating on patient's admission to [facility]. Chante Smith, COMMERCIAL LITIGATION ASSOCIATE, MACHINE TOOL TECHNICIAN INSTRUCTOR
[2020-11-18 19:29] VITALS: BMI 22.6
[2020-11-18 19:32] VITALS: BMI 21.3
[2020-11-18 19:34] VITALS: BP 144/88; PULSE 91; RESP 16; TEMP 36.7; O2SAT 99
--- NOTE | 2020-11-18 19:38 | HP.PCM_ITS ---
Problem List (1) Anemia Status: Chronic Qualifiers: Anemia type: unspecified type Qualified Code(s): D64.9 - Anemia, unspecified (2) Suspected COVID-19 virus infection Status: Acute (3) Elevated LFTs Status: Chronic (4) GERD (gastroesophageal reflux disease) Status: Chronic Qualifiers: (5) Encephalopathy Status: Acute (6) Hyponatremia Status: Acute (7) Alcohol abuse Status: Chronic (8) Hypokalemia Status: Acute (9) Anxiety Status: Chronic (10) Thrombocytopenia Status: Chronic (11) Alcohol withdrawal Status: Chronic Qualifiers: (12) Hypokalemia Status: Chronic (13) Arthritis of left hip Status: Chronic (14) Tobacco dependency Status: Chronic History of Present Illness Date of Admission: 11/18/20 Chief Complaint: Acute alcohol withdrawal syndrome The patient is a 50 year old M with history of chronic alcohol use for last 5 years after divorce came to ER for alcohol detoxification. Patient states he drinks 6 large bottles of beer every day along with a pint of vodka about 3-4 times a week. Patient last drink was today. He also has history of withdrawal seizures, last 1 in September 2020. He was last admitted between 11/03-11/06 for medical stabilization of alcohol withdrawal but he did not follow-up as an outpatient and relapsed. [] In ED, he is shaking, tremors heart rate 121 per night, blood pressure 157/116, pulse ox 99% room air. He is also a chronic smoker, started with pipe smoking in college and now he smokes about a pack per day. Denies chronic opioid use, crack cocaine, methamphetamine or other substance use. In ED, K3.3, ALT and AST normal. PT/INR 13/1.0. H&H low 12.5/37 platelet count 113. EKG shows sinus tachycardia without signs of ST-T changes. Chest x-ray reported lungs clear. Past Medical History Past Medical History (Chronic Problems): Chronic Problems (Last Reviewed 04/08/20 @ 17:[address] Simran Carranza DO) Anemia (Chronic) Elevated LFTs (Chronic) GERD (gastroesophageal reflux disease) (Chronic) Alcohol abuse (Chronic) Anxiety (Chronic) Thrombocytopenia (Chronic) Alcohol withdrawal (Chronic) Hypokalemia (Chronic) Arthritis of left hip (Chronic) Tobacco dependency (Chronic) Medical History: Medical History (Last Reviewed 04/08/20 @ 17:[address] Simran Carranza, DO) Hx of seizure disorder Z86.69 Allergies diphenhydramine HCl [From Benadryl] Adverse Reaction (Verified 11/18/20 14:08) Swelling mushroom Adverse Reaction (Verified 11/18/20 14:08) Vomiting Home Medications: Ambulatory Orders Medication Instructions Recorded Folic Acid 1 mg PO DAILY 11/03/20 Magnesium Oxide [Mgo] 400 mg PO TID 11/03/20 Nicotine [Nicoderm Cq] 21 mg TD DAILY 11/03/20 K-Dur 11/18/20 Thiamine HCl [Vitamin B-1] 100 mg PO DAILY 11/18/20 Surgical History: noncontributory, tonsillectomy Psychiatric History: No pertinent psych hx Lives: Alone Smoking Status: Current every day smoker Tobacco Use: Non-smoker Alcohol: Heavy Drugs: None - *Family History Sibling History Items: - - Thyroid disease. Maternal History Items: Hypertension, - - Thyroid disease. Paternal History Items: Diabetes Review of Systems Constitutional: Reports: Chills, Malaise, Weakness, Fatigue. Denies: Fever, Weight Change HEENT: Denies: Head Aches, Sinus Congestion, Sinus Drainage Cardiovascular: Denies: Chest Pain, Palpitations Respiratory: Denies: Cough, Shortness of breath at rest, Sputum production Gastrointestinal: Denies: Abdominal Pain, Nausea, Vomiting Genitourinary: Denies: Dysuria, Frequency Musculoskeletal: Denies: Joint Pain, Joint Tenderness Skin: Denies: Rash, Wounds Neurological: Reports: Balance problems, Incoordination. Denies: Focal weakness, Numbness, Tingling Psychiatric: Reports: Anxiety, Depression. Denies: Homicidal Ideations, Suicidal Ideations Hematologic/ Lymphatic: Denies: Easy Bruising, Easy Bleeding VTE Information - Inpt Only VTE Present on Admission: No VTE Mechan Device Prophylaxis: None VTE Pharm Prophylaxis ordered?: Yes Objective: Physical exam General: Alert, Oriented x3, Cooperative, thin build. HEENT: Atraumatic, PERRLA, EOMI, Normocephalic Oral: Oral mucosa is dry no Gingival or Mucosal Lesions/ Ulcerations Neck: Supple, No JVD, Negative Carotid Bruits Lungs: Air entry diminished in bilateral lung bases. No crepitation/rhonchi Cardiovascular: Regular rate, Regular Rhythm, Normal S1, Normal S2, No murmurs Abdomen: Bowel Sounds Present, Soft, Non Tender, Non-Distended : No renal angle tenderness. No suprapubic tenderness. Extremities: Generalized tremor in extremities. No edema, Capillary Refill Less than 3 Seconds Skin: No rashes, No breakdown Musculoskeletal: Mild atrophy of extremity muscles. No Tenderness to Palpation of Joints or Extremities Neurological: Cranial nerves II-XII grossly intact, Deep Tendon Reflexes 2+/4 and Symmetrical, Neuro grossly intact Psych/Mental Status: Normal Affect, Appropriate. - Physical Exam Vitals/I&O's: Vital Signs Temp Pulse Resp BP Pulse Ox 98.1 F 91 16 144/88 H 99 11/18/20 19:34 11/18/20 19:34 11/18/20 19:34 11/18/20 19:34 11/18/20 19:34 Oxygen Delivery Method Room Air Weight: 166 lb Body Mass Index (BMI) 21.3 Finger Stick Blood Glucose 146 Intake and Output for Last 24 Hours 11/16/20 11/17/20 11/18/20 23:59 23:59 23:59 Intake Total 1000 / 1000 Balance 1000 / 1000 Microbiology Past 72 Hours 11/18/20 14:50 Mucosa - Nose SARS-CoV-2 Antigen (Rapid) - Final Laboratory Results 11/18/20 14:55: WBC 4.8, RBC 3.72 L, Hgb 12.5 L, Hct 37.0 L, MCV 99.5 H, MCH 33.6 H, MCHC 33.8, RDW Std Deviation 49.2 H, RDW Coeff of Isabel 13.2, Plt Count 113 L, MPV 8.5, Immature Gran % (Auto) 0.400, Neut % (Auto) 58.2, Lymph % (Auto) 28.1, [place] % (Auto) 8.1, Eos % (Auto) 4.0, Baso % (Auto) 1.2 H, Absolute Neuts (auto) 2.8, Absolute Lymphs (auto) 1.35, Nucleated RBC % 0 11/18/20 14:55: PT 13.0, INR 1.0 11/18/20 14:55: Sodium 138, Potassium 3.3 L, Chloride 104, Carbon Dioxide 27.0, Anion Gap 7, BUN 7, Creatinine 0.65 L, Estim Creat Clear Calc 149.86, Est GFR (MDRD) Af Amer 165, Est GFR (MDRD) Non-Af 137, BUN/Creatinine Ratio 10.7, Glucose 80, Calcium 8.8, Total Bilirubin 0.30, AST 37, ALT 23, Alkaline Phosphatase 90, Troponin I < 0.015, Total Protein 8.3 H, Albumin 4.0, Globulin 4.3 H, Albumin/Globulin Ratio 0.9, Lipase 331 11/18/20 15:19: Urine Opiates Screen NEGATIVE, Urine Methadone Screen NEGATIVE, Ur Barbiturates Screen POSITIVE H, Ur Phencyclidine Scrn NEGATIVE, Ur Amphetamines Screen NEGATIVE, U Methamphetamin-MDMA NEGATIVE, U Benzodiazepines Scrn NEGATIVE, Urine Cocaine Screen NEGATIVE, U Cannabinoids Screen NEGATIVE, Ur Drug Screen Comment Current Medications Sodium Chloride (0.9% Saline Lock 10 Ml Syringe) 10 - 40 ml IV UD PRN PRN Reason: SALINE FLUSH Assessment/Plan All Active Problems (Last Reviewed 04/08/20 @ 17:[address] Simran Carranza, DO) Suspected COVID-19 virus infection (Acute) Encephalopathy (Acute) Hyponatremia (Acute) Hypokalemia (Acute) This 50-year-old gentleman with history of chronic alcohol use and dependence admitted with acute alcohol withdrawal syndrome. 1. Acute alcohol withdrawal syndrome: Patient is being admitted in [facility]. On IV fluid Ringer lactate for 1 L. On phenobarbitone based treatment protocol. Patient history of multiple ICU admissions for detoxification along with withdrawal seizure. On thiamine, folic acid. [facility] protocol. Patient was twice admitted in the last month October 2020, on October 20 and November 03. Urine tox positive of barbiturates. 2. Mild hypokalemia: Potassium K. Dur is ordered. Check magnesium and phosphorus. Monitor BMP and replace accordingly. 3. Chronic smoker: On nicotine patch. Currently patient smokes cigarettes 4. Anemia of chronic disease, macrocytic in nature: Patient chronically has low H&H with elevated MCV. His ferritin was 1145 on October 20, 2020. 5 chronic alcoholic hepatitis: ALT and AST were elevated in October 20, which has gotten better. AST 61 on October 23 but currently is normal. Patient has mild thrombocytopenia, platelet count 113. VTE prophylaxis: Bilateral SCDs. Avoid pharmacological prophylaxis in view of anemia and thrombocytopenia. Inpatient E&M: 33906 Init Hosp L3
[2020-11-18] MEDS: Lactated Ringers 1,000 ML 125 ML IV (20:16)
[2020-11-18] MEDS: Ibuprofen 400 MG Tablet PO (20:28)
[2020-11-18] MEDS: Enoxaparin 40 MG/0.4 ML Syringe SC (20:28)
[2020-11-18] MEDS: Gabapentin 300 MG Capsule PO (20:28)
[2020-11-18] MEDS: traZODone 100 MG Tablet PO (20:28)
[2020-11-18] MEDS: Pantoprazole Sodium 40 MG Tablet PO (20:29)
[2020-11-18] MEDS: Phenobarbital 32.4 MG Tablet 64.8 MG PO (20:29)
[2020-11-18] MEDS: Ondansetron 8 MG Tablet PO (20:30)
[2020-11-18 21:00] LABS: Bacteria 0 SEEN /hpf (None Seen); Mucous, Urine 0 SEEN /hpf (<or=2+); Red Blood Cells-Urine 0 SEEN /hpf (0-5); White Blood Cells 0 SEEN /hpf (0-5)
[2020-11-18 21:03] LABS: Color, Urine Yellow (Yellow); Glucose, Dipstick Normal (Normal); Ketone-Dipstick Negative (Negative); Leukocyte Esterase-Dipstick Negative /ul (Negative); Nitrite-Dipstick Negative (Negative); Occult Blood-Urine Negative /ul (Negative); Protein-Dipstick Negative (Negative); Urine Bilirubin Dipstick Negative (Negative); Urine Clarity Sl. Cloudy (Clear); Urine Urobilinogen Normal (Normal)
[2020-11-18 21:10] LABS: Squamous Epithelial Cells - UA 0-5 SEEN /hpf (0-5)
[2020-11-18 22:34] LABS: Magnesium 1.5 mg/dL (1.6-2.6); Phosphorus 3.1 mg/dL (2.5-4.9)
[2020-11-19 00:40] VITALS: BP 126/72; PULSE 92; RESP 18; TEMP 36.8; O2SAT 94
[2020-11-19] MEDS: Phenobarbital 32.4 MG Tablet 64.8 MG PO ×6 (00:45→20:55)
[2020-11-19] MEDS: 0.9% Saline Lock 10 ML Syringe IV (04:25)
[2020-11-19 04:30] VITALS: BP 121/75; PULSE 86; RESP 16; TEMP 36.9; O2SAT 94
[2020-11-19] MEDS: Gabapentin 300 MG Capsule PO (04:40)
[2020-11-19] MEDS: Ondansetron 8 MG Tablet PO (04:40)
[2020-11-19 05:54] LABS: Absolute Lymphocyte Count 1.51 X10^3/uL (0.83-4.51); Absolute Neutrophil Count 1.8 X10^3/uL (2.0-7.7); Basophil# 0.05 X10^3/uL; Basophil% 1.3 % (0-1); Eosinophil# 0.27 X10^3/uL; Eosinophils% 6.8 % (0-5); Hemoglobin 11.1 g/dL (13.0-16.5); Lymphocyte # 1.51 X10^3/ul (4.0); Mean Corp Hgb Conc 33.6 g/dL (32-36); Mean Corpuscular Volume 101.2 fL (80-94); Mean Platelet Vol. 9.3 fl (6.2-12.0); Monocyte# 0.33 X10^3/uL; Monocyte% 8.3 % (0-10); NRBC Flagged by Analyzer 0 % (0-5); Neutrophil % 45.3 % (47-70); Platelet Count 102 K/mm3 (150-450); RBC Distribution Width CV 13.1 % (11.6-14.6); RBC Distribution Width SD 49.2 fl (35.1-43.9); Red Blood Count 3.26 M/mm3 (4.6-6.2)
[2020-11-19 06:16] LABS: Anion Gap 6 (5-15); BUN 10 mg/dL (7-18); Calcium,Total 8.3 mg/dL (8.5-10.1); Chloride 102 mmol/L (98-107); Creatinine, Serum 0.56 mg/dL (0.70-1.30); EST Glomerular Filtration Rate 165 mL/min (>60); Est Glom Filt Rate - Afr Amer 199 mL/min (>60); Estimated Creatinine Clearance 164.34 ml/min; Glucose 83 mg/dL (74-106); Potassium 3.4 mmol/L (3.5-5.1); Sodium Level 135 mmol/L (136-145)
[2020-11-19] MEDS: Folic Acid 1 MG Tablet PO (07:58)
[2020-11-19] MEDS: Thiamine Hydrochloride 100 MG Tablet PO (07:58)
[2020-11-19 09:40] VITALS: BP 130/86; PULSE 86; RESP 16; TEMP 37.1; O2SAT 95
[2020-11-19] MEDS: hydrOXYzine PAM 25 MG Capsule 50 MG PO (09:51)
[2020-11-19] MEDS: Pantoprazole Sodium 40 MG Tablet PO (09:51)
--- NOTE | 2020-11-19 10:16 | ADDICTION ---
This advertising writer met with PT in his room to complete ASAM, MSE, AUDIT assessments and to complete d/c plan. All assessments completed and faxed to [facility]. PT plans to follow-up with [facility] upon d/c from [facility]. PT refused this advertising writer's coordination for appointment. This advertising writer provided PT with contact information for [facility]. PT to d/c home and did not request assistance with transportation.
--- NOTE | 2020-11-19 11:28 | PCM.PROGNOTE ---
Patient Problems: Active and Suspected Problems (Last Reviewed 04/08/20 @ 17:[address] Simran Carranza, DO) Hypokalemia (Acute) Subjective: Patient was seen and examined today, 180 director social saw the patient today-patient is unsure of what the discharge planning will be, at 180 will be talking with the patient today about this. Patient's potassium today was 3.4, he does not complain of any anxiety or tremor to this examiner. He has no symptoms of muscle pain, nausea, or vomiting. - Physical Exam Vitals/I&O's: Vital Signs Temp Pulse Resp BP Pulse Ox 98.8 F 86 16 130/86 H 95 11/19/20 09:40 11/19/20 09:40 11/19/20 09:40 11/19/20 09:40 11/19/20 09:40 Oxygen Delivery Method Room Air Weight: 75.296 kg Body Mass Index (BMI) 21.3 Finger Stick Blood Glucose 146 Intake and Output for Last 24 Hours 11/17/20 11/18/20 11/19/20 23:59 23:59 23:59 Intake Total 1000 / 1000 1000 / 1000 Output Total 625 / 625 Balance 1000 / 1000 375 / 375 General: Alert, Oriented x3, Cooperative, No apparent distress, Well developed, Well nourished HEENT: Atraumatic, PERRLA, EOMI, Normocephalic Oral: Moist Mucosa Neck: Supple, No JVD, Trachea Midline, Thyroid Normal Size and Texture Lungs: Clear to auscultation, Normal air movement, No rhonchi, No wheeze, No rales Cardiovascular: Regular rate, Regular Rhythm, Normal S1, Normal S2, No murmurs, PMI Normal, No rub noted, No Gallop Abdomen: Bowel Sounds Present, Soft, Non Tender, Non-Distended Extremities: No clubbing, No cyanosis, No edema, Capillary Refill Less than 3 Seconds Skin: No rashes, No breakdown Musculoskeletal: No Tenderness to Palpation of Joints or Extremities Neurological: Cranial nerves II-XII grossly intact, Neuro grossly intact, Sensory exam intact to light touch and pain Psych/Mental Status: Normal Affect, Appropriate, Alert and oriented to time, place, person, mood and affect Microbiology Past 72 Hours 11/18/20 14:50 Mucosa - Nose SARS-CoV-2 Antigen (Rapid) - Final Laboratory Results 11/18/20 14:55: WBC 4.8, RBC 3.72 L, Hgb 12.5 L, Hct 37.0 L, MCV 99.5 H, MCH 33.6 H, MCHC 33.8, RDW Std Deviation 49.2 H, RDW Coeff of Isabel 13.2, Plt Count 113 L, MPV 8.5, Immature Gran % (Auto) 0.400, Neut % (Auto) 58.2, Lymph % (Auto) 28.1, [place] % (Auto) 8.1, Eos % (Auto) 4.0, Baso % (Auto) 1.2 H, Absolute Neuts (auto) 2.8, Absolute Lymphs (auto) 1.35, Nucleated RBC % 0 11/18/20 14:55: PT 13.0, INR 1.0 11/18/20 14:55: Sodium 138, Potassium 3.3 L, Chloride 104, Carbon Dioxide 27.0, Anion Gap 7, BUN 7, Creatinine 0.65 L, Estim Creat Clear Calc 149.86, Est GFR (MDRD) Af Amer 165, Est GFR (MDRD) Non-Af 137, BUN/Creatinine Ratio 10.7, Glucose 80, Calcium 8.8, Total Bilirubin 0.30, AST 37, ALT 23, Alkaline Phosphatase 90, Troponin I < 0.015, Total Protein 8.3 H, Albumin 4.0, Globulin 4.3 H, Albumin/Globulin Ratio 0.9, Lipase 331 11/18/20 14:55: Phosphorus 3.1, Magnesium 1.5 L 11/18/20 15:19: Urine Opiates Screen NEGATIVE, Urine Methadone Screen NEGATIVE, Ur Barbiturates Screen POSITIVE H, Ur Phencyclidine Scrn NEGATIVE, Ur Amphetamines Screen NEGATIVE, U Methamphetamin-MDMA NEGATIVE, U Benzodiazepines Scrn NEGATIVE, Urine Cocaine Screen NEGATIVE, U Cannabinoids Screen NEGATIVE, Ur Drug Screen Comment 11/18/20 19:57: Ethyl Alcohol 203.0 11/18/20 20:47: Urine Color Yellow, Urine Clarity Sl. Cloudy, Urine pH 8.0, Ur Specific [place] 1.010, Urine Protein Negative, Urine Glucose (UA) Normal, Urine Ketones Negative, Urine Occult Blood Negative, Urine Nitrite Negative, Urine Bilirubin Negative, Urine Urobilinogen Normal, Ur Leukocyte Esterase Negative, Urine RBC 0 SEEN, Urine WBC 0 SEEN, Ur Squamous Epith Cells 0-5 SEEN, Urine Bacteria 0 SEEN, Urine Mucus 0 SEEN 11/19/20 05:38: WBC 4.0 L, RBC 3.26 L, Hgb 11.1 L, Hct 33.0 L, MCV 101.2 H, MCH 34.0 H, MCHC 33.6, RDW Std Deviation 49.2 H, RDW Coeff of Isabel 13.1, Plt Count 102 L, MPV 9.3, Immature Gran % (Auto) 0.300, Neut % (Auto) 45.3 L, Lymph % (Auto) 38.0, [place] % (Auto) 8.3, Eos % (Auto) 6.8 H, Baso % (Auto) 1.3 H, Absolute Neuts (auto) 1.8 L, Absolute Lymphs (auto) 1.51, Nucleated RBC % 0 11/19/20 05:38: Sodium 135 L, Potassium 3.4 L, Chloride 102, Carbon Dioxide 27.0, Anion Gap 6, BUN 10, Creatinine 0.56 L, Estim Creat Clear Calc 164.34, Est GFR (MDRD) Af Amer 199, Est GFR (MDRD) Non-Af 165, BUN/Creatinine Ratio 18.0, Glucose 83, Calcium 8.3 L Current Medications Acetaminophen (Acetaminophen 500 Mg Tablet) 500 mg PO Q4H PRN PRN PRN Reason: Temp > 100.4 F Al Hydroxide/Mg Hydroxide (Mag Hydrox/Al Hydrox/Simeth 30 Ml Udc) 30 ml PO Q6H PRN PRN PRN Reason: dyspesia Bisacodyl (Bisacodyl 10 Mg Suppository) 10 mg RC DAILY PRN PRN Reason: Constipation Dicyclomine HCl (Dicyclomine 10 Mg Capsule) 20 mg PO Q6H PRN PRN PRN Reason: abdominal discomfort Folic Acid (Folic Acid 1 Mg Tablet) 1 mg PO DAILY@0800 [facility] Last Admin: 11/19/20 07:58 Dose: 1 mg Documented by: Gabapentin (Gabapentin 300 Mg Capsule) 300 mg PO Q8H PRN PRN PRN Reason: moderate to severe anxiety Last Admin: 11/19/20 04:40 Dose: 300 mg Documented by: Hydroxyzine Pamoate (Hydroxyzine Sirena 25 Mg Capsule) 50 mg PO Q4H PRN PRN PRN Reason: mild anxiety Last Admin: 11/19/20 09:51 Dose: 50 mg Documented by: Ibuprofen (Ibuprofen 400 Mg Tablet) 400 mg PO Q8H PRN PRN PRN Reason: PAIN 1-10 Last Admin: 11/18/20 20:28 Dose: 400 mg Documented by: Loperamide HCl (Loperamide 2 Mg Capsule) 2 mg PO Q4H PRN PRN PRN Reason: LOOSE STOOLS Nicotine (Nicotine 21 Mg Patch) 21 mg TD DAILY [facility] Last Admin: 11/19/20 09:51 Dose: 21 mg Documented by: Ondansetron HCl (Ondansetron 8 Mg Tablet) 8 mg PO Q8H PRN PRN PRN Reason: NAUSEA Last Admin: 11/19/20 04:40 Dose: 8 mg Documented by: Pantoprazole Sodium (Pantoprazole Sodium 40 Mg Tablet) 40 mg PO DAILY [facility] Last Admin: 11/19/20 09:51 Dose: 40 mg Documented by: Phenobarbital (Phenobarbital 32.4 Mg Tablet) 97.2 mg PO Q4H [facility]; Taper Stop: 11/23/20 04:29 Last Admin: 11/19/20 07:58 Dose: 97.2 mg Documented by: Potassium Chloride (Potassium Chloride 20 Meq Tablet) [facility] Last Admin: 11/19/20 07:58 Dose: 40 meq Documented by: Senna (Senna Tablet) 2 tablet PO QHS PRN PRN Reason: Constipation Sodium Chloride (0.9% Saline Lock 10 Ml Syringe) 10 - 40 ml IV UD PRN PRN Reason: SALINE FLUSH Last Admin: 11/19/20 04:25 Dose: 10 ml Documented by: Thiamine HCl (Thiamine Hydrochloride 100 Mg Tablet) [facility] Last Admin: 11/19/20 07:58 Dose: 100 mg Documented by: Trazodone HCl (Trazodone 100 Mg Tablet) 100 mg PO QHS PRN PRN Reason: INSOMNIA Last Admin: 11/18/20 20:28 Dose: 100 mg Documented by: Medical Necessity - Tobacco Use Smoking Status: Current every day smoker Tobacco Use: Non-smoker Assessment/Plan All Active Problems (Last Reviewed 04/08/20 @ 17:[address] Simran Carranza DO) Suspected COVID-19 virus infection (Resolved) Encephalopathy (Resolved) Hyponatremia (Resolved) Hypokalemia (Acute) #1 alcohol withdrawal-continue present treatment #2 chronic alcoholism-180 will be talking with the patient today about treatment plan #3 hypokalemia-this is mild, I will recheck the patient's potassium tomorrow and give the patient supplementation today. Inpatient E&M: 44745 Subs Hosp L2
[2020-11-19 13:37] VITALS: BP 123/80; PULSE 95; RESP 16; TEMP 37.3; O2SAT 95
--- NOTE | 2020-11-19 14:44 | CHAPLAIN ---
Type of Pastoral Visit _x__ Initial Visit ___ Follow-up Visit ___ On-call Visit ___ General Patient Visit ___ Spiritual Assessment ___ Family Conference ___ Bereavement ___ Rapid Response ___ Code Blue ___ Other (describe below) Pastoral Care Referral From _x__ Patient ___ Family ___ Nurse ___ Physician ___ Neck Band Operator ___ Criminal Intelligence Analyst ___ Other (describe below) Sacrament/Intervention ___ Active listening ___ Anointing ___ Buddhism ___ Bereavement ___ Communion ___ Delia exploration ___ ___ Life review ___ Prayer ___ Reconciliation ___ Sacrament of Sick _x__ Supportive presence ___ Wedding ___ Other (describe below) Pastoral Comments patient was resting but awakened to his name being spoken; pt states that he is very tired and would like travel professional to come back tomorrow; this travel professional stated that he is not working tomorrow; pt said that he needs to sleep now;
[2020-11-19 17:13] VITALS: BP 144/99; PULSE 95; RESP 16; TEMP 37.3; O2SAT 95
[2020-11-19] MEDS: Senna Tablet 2 TABLET PO ×2 (18:49→18:50)
[2020-11-19] MEDS: Ibuprofen 400 MG Tablet PO (20:54)
[2020-11-19] MEDS: traZODone 100 MG Tablet PO (20:55)
[2020-11-19 20:56] VITALS: BP 146/94; PULSE 86; RESP 18; TEMP 37.2; O2SAT 98
[2020-11-20] MEDS: Phenobarbital 32.4 MG Tablet 64.8 MG PO ×7 (00:39→23:39)
[2020-11-20 04:40] VITALS: BP 132/84; PULSE 86; RESP 16; TEMP 36.9; O2SAT 96
[2020-11-20 07:10] LABS: Anion Gap 7 (5-15); BUN 17 mg/dL (7-18); BUN/Creat Ratio 25.2 RATIO (10-20); Chloride 102 mmol/L (98-107); Creatinine, Serum 0.67 mg/dL (0.70-1.30); EST Glomerular Filtration Rate 131 mL/min (>60); Est Glom Filt Rate - Afr Amer 159 mL/min (>60); Estimated Creatinine Clearance 137.36 ml/min; Glucose 108 mg/dL (74-106); Potassium 3.6 mmol/L (3.5-5.1); Sodium Level 135 mmol/L (136-145)
[2020-11-20] MEDS: Folic Acid 1 MG Tablet PO (08:33)
[2020-11-20] MEDS: Thiamine Hydrochloride 100 MG Tablet PO (08:33)
[2020-11-20 10:15] VITALS: BP 138/96; PULSE 87; RESP 18; TEMP 37.1; O2SAT 99
[2020-11-20] MEDS: Pantoprazole Sodium 40 MG Tablet PO (10:21)
--- NOTE | 2020-11-20 10:22 | ADDICTION ---
This typewriter tester visited with PT in his room to confirm d/c plan. PT states that he plans to follow-up with [facility] to schedule an appointment with his counselor, Boyd, following d/c from [facility]. PT rejected other options of Residential treatment and IOP.
[2020-11-20] MEDS: Gabapentin 300 MG Capsule PO (10:37)
[2020-11-20 16:11] VITALS: BP 140/99; PULSE 91; RESP 18; TEMP 37.2; O2SAT 100
--- NOTE | 2020-11-20 17:17 | PN_ITS ---
Patient Problems: Active and Suspected Problems (Last Reviewed 04/08/20 @ 17:[address] Simran Carranza, DO) Hypokalemia (Acute) Subjective: Patient was seen and examined today, he does not complain of any anxiety, he had questions whether he could be discharged today-I told him he has not been in the hospital long enough to go through the detox program to be discharged. Patient also questions about a prescription for a cane, he could not give me an exact reason why he wanted a cane however. Objective: General: Alert, Oriented x3, Cooperative, No apparent distress, Well developed, Well nourished HEENT: Atraumatic, PERRLA, EOMI, Normocephalic Oral: Moist Mucosa Neck: Supple, No JVD, Trachea Midline, Thyroid Normal Size and Texture Lungs: Clear to auscultation, Normal air movement, No rhonchi, No wheeze, No rales Cardiovascular: Regular rate, Regular Rhythm, Normal S1, Normal S2, No murmurs, PMI Normal, No rub noted, No Gallop Abdomen: Bowel Sounds Present, Soft, Non Tender, Non-Distended Extremities: No clubbing, No cyanosis, No edema, Capillary Refill Less than 3 Seconds Skin: No rashes, No breakdown Musculoskeletal: No Tenderness to Palpation of Joints or Extremities Neurological: Cranial nerves II-XII grossly intact, Neuro grossly intact, Sensory exam intact to light touch and pain Psych/Mental Status: Normal Affect, Appropriate, Alert and oriented to time, place, person, mood and affect - Physical Exam Vitals/I&O's: Vital Signs Temp Pulse Resp BP Pulse Ox 98.9 F 91 18 140/99 H 100 11/20/20 16:11 11/20/20 16:11 11/20/20 16:11 11/20/20 16:11 11/20/20 16:11 Oxygen Delivery Method Room Air Weight: 75.296 kg Body Mass Index (BMI) 21.3 Finger Stick Blood Glucose 146 Intake and Output for Last 24 Hours 11/18/20 11/19/20 11/20/20 23:59 23:59 23:59 Intake Total 1000 / 1000 1000 / 1000 1960 / 1960 Output Total 625 / 625 1450 / 1450 Balance 1000 / 1000 375 / 375 510 / 510 Microbiology Past 72 Hours 11/18/20 14:50 Mucosa - Nose SARS-CoV-2 Antigen (Rapid) - Final Laboratory Results 11/20/20 06:05: Sodium 135 L, Potassium 3.6, Chloride 102, Carbon Dioxide 26.0, Anion Gap 7, BUN 17, Creatinine 0.67 L, Estim Creat Clear Calc 137.36, Est GFR (MDRD) Af Amer 159, Est GFR (MDRD) Non-Af 131, BUN/Creatinine Ratio 25.2 H, Glucose 108 H, Calcium 9.0 Current Medications Acetaminophen (Acetaminophen 500 Mg Tablet) 500 mg PO Q4H PRN PRN PRN Reason: Temp > 100.4 F Al Hydroxide/Mg Hydroxide (Mag Hydrox/Al Hydrox/Simeth 30 Ml Udc) 30 ml PO Q6H PRN PRN PRN Reason: dyspesia Bisacodyl (Bisacodyl 10 Mg Suppository) 10 mg RC DAILY PRN PRN Reason: Constipation Dicyclomine HCl (Dicyclomine 10 Mg Capsule) 20 mg PO Q6H PRN PRN PRN Reason: abdominal discomfort Folic Acid (Folic Acid 1 Mg Tablet) 1 mg PO DAILY@0800 [facility] Last Admin: 11/20/20 08:33 Dose: 1 mg Documented by: Gabapentin (Gabapentin 300 Mg Capsule) 300 mg PO Q8H PRN PRN PRN Reason: moderate to severe anxiety Last Admin: 11/20/20 10:37 Dose: 300 mg Documented by: Hydroxyzine Pamoate (Hydroxyzine Sirena 25 Mg Capsule) 50 mg PO Q4H PRN PRN PRN Reason: mild anxiety Last Admin: 11/19/20 09:51 Dose: 50 mg Documented by: Ibuprofen (Ibuprofen 400 Mg Tablet) 400 mg PO Q8H PRN PRN PRN Reason: PAIN 1-10 Last Admin: 11/19/20 20:54 Dose: 400 mg Documented by: Loperamide HCl (Loperamide 2 Mg Capsule) 2 mg PO Q4H PRN PRN PRN Reason: LOOSE STOOLS Nicotine (Nicotine 21 Mg Patch) 21 mg TD DAILY [facility] Last Admin: 11/20/20 10:21 Dose: 21 mg Documented by: Ondansetron HCl (Ondansetron 8 Mg Tablet) 8 mg PO Q8H PRN PRN PRN Reason: NAUSEA Last Admin: 11/19/20 04:40 Dose: 8 mg Documented by: Pantoprazole Sodium (Pantoprazole Sodium 40 Mg Tablet) 40 mg PO DAILY [facility] Last Admin: 11/20/20 10:21 Dose: 40 mg Documented by: Phenobarbital (Phenobarbital 32.4 Mg Tablet) 64.8 mg PO Q4H [facility]; Taper Stop: 11/23/20 04:29 Last Admin: 11/20/20 16:14 Dose: 64.8 mg Documented by: Potassium Chloride (Potassium Chloride 20 Meq Tablet) [facility] Last Admin: 11/20/20 08:33 Dose: 40 meq Documented by: Senna (Senna Tablet) 2 tablet PO QHS PRN PRN Reason: Constipation Last Admin: 11/19/20 18:50 Dose: 2 tablet Documented by: Sodium Chloride (0.9% Saline Lock 10 Ml Syringe) 10 - 40 ml IV UD PRN PRN Reason: SALINE FLUSH Last Admin: 11/19/20 04:25 Dose: 10 ml Documented by: Thiamine HCl (Thiamine Hydrochloride 100 Mg Tablet) [facility] Last Admin: 11/20/20 08:33 Dose: 100 mg Documented by: Trazodone HCl (Trazodone 100 Mg Tablet) 100 mg PO QHS PRN PRN Reason: INSOMNIA Last Admin: 11/19/20 20:55 Dose: 100 mg Documented by: Medical Necessity - Tobacco Use Smoking Status: Current every day smoker Tobacco Use: Non-smoker Assessment/Plan All Active Problems (Last Reviewed 04/08/20 @ 17:[address] Simran Carranza, DO) Suspected COVID-19 virus infection (Resolved) Encephalopathy (Resolved) Hyponatremia (Resolved) Hypokalemia (Acute) #1 alcohol withdrawal-continue present treatment #2 chronic alcoholism-patient states he is going to do an outpatient detox program. #3 hypokalemia-resolved at this time Inpatient E&M: 42924 Subs Hosp L2
[2020-11-20 19:27] VITALS: BP 147/101; PULSE 84; RESP 18; TEMP 37.2; O2SAT 98
[2020-11-20 23:32] VITALS: BP 139/101; PULSE 81; RESP 18; TEMP 37.2; O2SAT 97
[2020-11-20] MEDS: traZODone 100 MG Tablet PO (23:39)
[2020-11-21 04:10] VITALS: BP 117/81; PULSE 90; RESP 16; TEMP 37.2; O2SAT 97
[2020-11-21] MEDS: Phenobarbital 32.4 MG Tablet 64.8 MG PO ×2 (04:14→10:31)
[2020-11-21] MEDS: hydrOXYzine PAM 25 MG Capsule 50 MG PO (04:14)
[2020-11-21] MEDS: Folic Acid 1 MG Tablet PO (08:14)
[2020-11-21] MEDS: Thiamine Hydrochloride 100 MG Tablet PO (08:14)
[2020-11-21 10:15] VITALS: PULSE 88
[2020-11-21] MEDS: Pantoprazole Sodium 40 MG Tablet PO (10:31)
--- NOTE | 2020-11-21 11:16 | DCINST_ITS ---
- Discharge Diagnoses Current Active Problems: Current Active and Chronic Problems (Last Reviewed 04/08/20 @ 17:[address] Simran Carranza, DO) Anemia (Chronic) Elevated LFTs (Chronic) GERD (gastroesophageal reflux disease) (Chronic) Alcohol abuse (Chronic) Hypokalemia (Acute) Anxiety (Chronic) Thrombocytopenia (Chronic) Alcohol withdrawal (Chronic) Hypokalemia (Chronic) Arthritis of left hip (Chronic) Tobacco dependency (Chronic) You will use the following diet at home:: No restrictions Your food should be the consistency of: Regular Your liquids should be the consistency of: Regular/Thin Discharge Activity: Return to Normal Activity Weight Bearing Status: Full weight bearing Allergies/Adverse Reactions: Allergies diphenhydramine HCl [From Benadryl] Adverse Reaction (Verified 11/18/20 14:08) Swelling mushroom Adverse Reaction (Verified 11/18/20 14:08) Vomiting Medications to take at Discharge Nicotine [Nicoderm Cq] 21 mg TD DAILY 11/03/20 Phenobarbital 32.4 mg PO TID #10 tablet 11/21/20 hydrOXYzine pamoate capsule [Vistaril pamoate capsule] 25 - 50 mg PO Q6H PRN PRN #20 cap 11/21/20 traZODone [Desyrel] 100 mg PO QHS PRN #15 tab 11/21/20 The following prescriptions were given: traZODone [Desyrel] 100 mg PO QHS PRN #15 tab PRN Reason: Insomnia Transmission Status: Pending to [employer] [facility] Phenobarbital 32.4 mg PO TID #10 tablet Transmission Status: Sent to [employer] [facility]30 hydrOXYzine pamoate capsule [Vistaril pamoate capsule] 25 - 50 mg PO Q6H PRN PRN #20 cap PRN Reason: mild anxiety Transmission Status: Pending to [employer] [facility] Primary Care Physician: Elmer Bolton MD [Primary Care Provider] - Please follow up with your Primary Care Physician in: as scheduled Test Results: Test results from this visit will be discussed in further detail at your follow- up appointment, if applicable. Please Follow Up With: 180 When: on 11/23/20
[2020-11-21 11:58] VITALS: BP 130/91; PULSE 84; RESP 16; TEMP 36.8; O2SAT 100
--- NOTE | 2020-11-21 18:08 | DS.PCM_ITS ---
Discharge Date and Diagnosis - Problem List Patient Problems: Active and Suspected Problems (Last Reviewed 04/08/20 @ 17:[address] Simran Carranza DO) Hypokalemia (Acute) Date of Admission: 11/18/20 Date of Discharge: 11/21/20 - Primary Discharge Diagnosis Acute Problems: Active Problems (Last Reviewed 04/08/20 @ 17:[address] Simran Carranza DO) #1 alcohol withdrawal #2 chronic alcoholism #3 hypokalemia - Secondary Discharge Diagnosis Chronic Problems: Chronic Problems (Last Reviewed 04/08/20 @ 17:[address] Simran Carranza DO) Anemia (Chronic) Elevated LFTs (Chronic) GERD (gastroesophageal reflux disease) (Chronic) Alcohol abuse (Chronic) Anxiety (Chronic) Thrombocytopenia (Chronic) Alcohol withdrawal (Chronic) Hypokalemia (Chronic) Arthritis of left hip (Chronic) Tobacco dependency (Chronic) Hospital Course and Treatment Operations: None Procedures: None Summary of Care Provided: The patient is a 50 year old M seen in the emergency room at [facility] requesting services for alcohol detox. Patient has been to the hospital many times before here for the same issue. On admission, labs showed a slightly low potassium. He was admitted to [place] [address] and was seen by the social worker health services for 180. Patient requested outpatient alcohol detox services with 180 an d was going to call on 11/23/2020 to set these up. Patient appeared anxious for discharge 2 days after he was admitted, he did not seem to undergo severe alcohol withdrawal symptoms during his admission. On 11/21/2020, patient was seen and examined: On examination he appeared in good health and spirits. Vital signs as documented. Skin warm and dry and without overt rashes. Neck without JVD, neck was supple, trachea midline, thyroid was normal. Lungs clear bilaterally, normal air movement was noted. Heart exam notable for regular rhythm, normal sounds and absence of murmurs, rubs or gallops. Abdomen unremarkable and without evidence of organomegaly, masses, or abdominal aortic enlargement. Bowel sounds are present, abdomen is not distended. Extremities nonedematous, no cyanosis was noted, no clubbing was noted. Neuro: Cranial nerves II through XII are grossly intact, no focal motor deficits were noted, sensation to light touch and pinprick intact, motor exam 5/5 throughout. Psych: Patient is alert and oriented x3, he does not appear anxious or depressed, he does not appear agitated. Patient appears stable for discharge on 11/21/2020, it is my opinion that there is a high chance that the patient will fail outpatient detox services as he has been here many times for the same problem, Patient Problems: Active and Suspected Problems (Last Reviewed 04/08/20 @ 17:[address] Simran Carranza, DO) Hypokalemia (Acute) - Physical Exam Vitals/I&O's: Vital Signs Temp Pulse Resp BP Pulse Ox 98.3 F 84 16 130/91 H 100 11/21/20 11:58 11/21/20 11:58 11/21/20 11:58 11/21/20 11:58 11/21/20 11:58 Oxygen Delivery Method Room Air Weight: 75.296 kg Body Mass Index (BMI) 21.3 Finger Stick Blood Glucose 146 Intake and Output for Last 24 Hours 11/19/20 11/20/20 11/21/20 23:59 23:59 23:59 Intake Total 1000 / 1000 4560 / 4560 Output Total 625 / 625 4500 / 4500 1400 / 1400 Balance 375 / 375 60 / 60 -1400 / -1400 Microbiology Past 72 Hours 11/18/20 14:50 Mucosa - Nose SARS-CoV-2 Antigen (Rapid) - Final Discharge Activity: Return to Normal Activity Weight Bearing Status: Full weight bearing Home Medications: Medications to take at Discharge Nicotine [Nicoderm Cq] 21 mg TD DAILY 11/03/20 Phenobarbital 32.4 mg PO TID #10 tab 11/21/20 hydrOXYzine pamoate capsule [Vistaril pamoate capsule] 25 - 50 mg PO Q6H PRN PRN #20 cap 11/21/20 traZODone [Desyrel] 100 mg PO QHS PRN #15 tab 11/21/20 Following Prescriptions Were Given to Patient: traZODone [Desyrel] 100 mg PO QHS PRN #15 tab PRN Reason: Insomnia Transmission Status: Received by [employer] #30 Phenobarbital 32.4 mg PO TID #10 tab Transmission Status: Received by [employer] #30 hydrOXYzine pamoate capsule [Vistaril pamoate capsule] 25 - 50 mg PO Q6H PRN PRN #20 cap PRN Reason: mild anxiety Transmission Status: Received by [employer] #30 Primary Care Physician: Elmer Bolton MD [Primary Care Provider] - Please follow up with your Primary Care Physician in: as scheduled Please Follow Up With: 180 When: on 11/23/20 Disposition: Home Minutes spent on discharge:: 31 Patient Condition:: Stable Medical Necessity - Tobacco Use Smoking Status: Current every day smoker Tobacco Use: Non-smoker Meaningful Use Info Meaningful Use Diagnoses (Choose all that apply): None applicable Inpatient E&M: 29335 Disch Hosp
== END 2020-11-21 12:45 | DRG 775 ==
LOC: ED 14:42 → MS3 20:29
PROVIDERS: Admitting Provider Internal Medicine; Emergency Provider Student in an Organized Health Care Education/Training Program; PCP Family Medicine; Visit Provider Internal Medicine
DX: F10.239 Alcohol dependence with withdrawal, unspecified (principal); Y90.9 Presence of alcohol in blood, level not specified; E87.6 Hypokalemia; K70.10 Alcoholic hepatitis without ascites; D69.6 Thrombocytopenia, unspecified; D63.8 Anemia in other chronic diseases classified elsewhere; F41.9 Anxiety disorder, unspecified; K21.9 Gastro-esophageal reflux disease without esophagitis; M16.12 Unilateral primary osteoarthritis, left hip; F17.210 Nicotine dependence, cigarettes, uncomplicated
CPT/HCPCS: 36415; 71045; 80048; 80053; 80307; 81001; 82077; 83690; 83735; 84100; 84484; 85025; 85610; 87426; 93005; 97116; 97162; 97166; 97530; 99284; J7030; J7120; A4216

== ENCOUNTER 2020-12-24 11:45 | Inpatient (IN) | payer MEDICAID, SELFPAY ==
[2020-12-24] VITALS (7 sets, daily range): BP systolic 146–183; BP diastolic 88–107; PULSE 97–149; RESP 14–22; TEMP 36–37.5; O2SAT 97–100; BMI 21.7; BMI 19.8
--- NOTE | 2020-12-24 12:14 | EKG12_ITS ---
Test Reason : Blood Pressure : / mmHG Vent. Rate : 138 BPM Atrial Rate : 138 BPM P-R Int : 112 ms QRS Dur : 074 ms QT Int : 304 ms P-R-T Axes : 063 -51 069 degrees QTc Int : 460 ms Sinus tachycardia Left anterior fascicular block Abnormal ECG Confirmed by NEYDA PRICE, KAT ([id number]), editor news HANNA COLLINS ([id number]) on 12/28/2020 10:27:29 AM Referred By: TORREY Confirmed By:KAT FAYE MD
--- NOTE | 2020-12-24 12:18 | ED.DCSUM_ITS ---
- ER Visit Summary Date of Service: 12/24/20 Chief Complaint: Alcohol detox History of Present Illness: The patient is a 50 M presents requesting alcohol detox. Patient states he has a history of alcohol abuse and was admitted here for detox approximately 2 weeks ago. Patient states he was doing well until this weekend. Patient states that since that time he has been drinking approximately 1 L of vodka per day. Patient states his last drink was 2 hours ago. Patient denies any suicidal or homicidal ideations. Patient states that when he does not drink he developed severe nausea along with some vomiting. Patient also admits to some generalized weakness. Patient states he has been having some depression and anxiety. Patient denies any suicidal or homicidal ideations. Patient denies any visual or auditory hallucinations. Patient admits to some mild tremors but denies any seizures. Physical Examination: Vital signs are stable set for a tachycardia of 149. Patient is afebrile. Patient is in no acute distress. Oral mucosa is pink and moist. Neck is supple. Trachea is midline. There is no JVD. Heart was regular and tachycardic. Lungs are clear and equal bilaterally. Abdomen is soft. Bowel sounds are normal. There is no tenderness. Cranial nerves II th rough XII are intact. Strength is 5/5 bilateral in the upper and lower extremities. There are no sensory deficits noted. Extremities are intact. There is no calf tenderness or edema. Test Results: CBC shows a mild thrombocytopenia of 59. Comprehensive metabolic profile showed a potassium of 3.1 and chloride of 78. BUN was 30 and creatinine was 2.16. Total bilirubin was slightly elevated at 1.2. PT with INR and PTT were normal. Portable 1 view chest x-ray was obtained. On my interpretation, lung ayala are clear. There is normal cardiac silhouette. Bony thorax is normal. There is no acute process noted. Radiologist also interpreted the x- ray and agrees. Emergency Department Course and Treatment: Patient was given IV fluids. Patient was given a dose of phenobarbital here. Patient was given a dose of Ativan. Patient was also given oral potassium. Patient is feeling better on reevaluation. Case was discussed with the hospitalist. He will admit the patient to his service. Patient understood and was agreeable with the plan. All questions were answered. Disposition: Admit to hospital Impression: 1. Alcohol withdrawal 2. Acute kidney injury This note was generated with Globa.liation software. It may contain incorrect words, spelling, and punctuation that were not noted in review of the chart prior to signing ED Disposition - Plan for ED Patient: Disposition: Home or Assisted Living Diagnosis: Alcohol withdrawal, Acute kidney injury Referrals: Elmer Bolton MD [STAFF PHYSICIAN] -
[2020-12-24] MEDS: 0.9% Normal Saline 1,000 ML 1000 ML IV (12:27)
[2020-12-24] MEDS: Phenobarbital 32.4 MG Tablet 64.8 MG PO ×3 (12:27→21:04)
[2020-12-24 13:33] LABS: Absolute Lymphocyte Count 0.88 X10^3/uL (0.83-4.51); Absolute Neutrophil Count 8.5 X10^3/uL (2.0-7.7); Basophil# 0.05 X10^3/uL; Basophil% 0.5 % (0-1); Hematocrit 44.7 % (40-54); Hemoglobin 15.2 g/dL (13.0-16.5); Lymphocyte # 0.88 X10^3/ul (4.0); Lymphocyte % 8.4 % (19-41); Mean Corpuscular Hgb 32.9 pg (27.0-32.0); Mean Corpuscular Volume 96.8 fL (80-94); Mean Platelet Vol. 9.8 fl (6.2-12.0); Monocyte# 0.99 X10^3/uL; Monocyte% 9.4 % (0-10); NRBC Flagged by Analyzer 0 % (0-5); Neutrophil # 8.54 X10^3/uL (2.7-7.7); Neutrophil % 81.3 % (47-70); POSITIVE COUNT YES; Platelet Count 59 K/mm3 (150-450); RBC Distribution Width CV 13.6 % (11.6-14.6); RBC Distribution Width SD 48.9 fl (35.1-43.9); Red Blood Count 4.62 M/mm3 (4.6-6.2); White Blood Count 10.5 K/mm3 (4.4-11.0)
[2020-12-24 13:34] LABS: Differential Indicated SCAN CRITERIA MET
--- NOTE | 2020-12-24 13:40 | RAD_ITS ---
STUDY: X-RAY CHEST REASON FOR EXAM: Male, 50 years old. Cough TECHNIQUE: Single AP portable view of the chest. COMPARISON: Comparison is made with prior study dated 11/18/2020. FINDINGS: There is hyperinflation of the lungs consistent with chronic obstructive lung disease (COPD). There is no demonstrated pleural abnormality. Normal size heart. Normal mediastinum and melisa. Normal visualized pulmonary arteries. Normal visualized aortic arch and descending thoracic aorta. Normal visualized thoracic spine. Normal visualized ribs, clavicles, and shoulders. There is no demonstrated abnormality of the visualized soft tissue structures of the upper abdomen. RAD/Chest 1 View (Portable) IMPRESSION: Hyperinflation. Electronically Signed: Saeed Gan MD at 13:58 EDT , Service support ,
[2020-12-24 13:46] LABS: International Normalized Ratio 0.9; Partial Thromboplast Time 25.3 Seconds (24.1-36.2); Prothrombin Time (Protime)PT. 11.8 SECONDS (11.7-14.9)
[2020-12-24 13:48] LABS: AST(SGOT) 149 U/L (15-37); Alanine Aminotransfer ALT/SGPT 101 U/L (16-61); Albumin, Serum 5.3 g/dL (3.2-5.0); Alkaline Phosphatase 80 U/L (45-117); Anion Gap 34 (5-15); BUN 30 mg/dL (7-18); BUN/Creat Ratio 13.9 RATIO (10-20); Calcium,Total 9.7 mg/dL (8.5-10.1); Chloride 78 mmol/L (98-107); Creatinine, Serum 2.16 mg/dL (0.70-1.30); EST Glomerular Filtration Rate 34 mL/min (>60); Est Glom Filt Rate - Afr Amer 42 mL/min (>60); Estimated Creatinine Clearance 43.38 ml/min; Globulin 5.2 g/dL (2.2-4.2); Glucose 94 mg/dL (74-106); Potassium 3.1 mmol/L (3.5-5.1); Protein, Total 10.5 g/dL (6.4-8.2); Sodium Level 136 mmol/L (136-145)
[2020-12-24 13:59] LABS: Platelet Estimate MKD DEC (ADEQ)
[2020-12-24] MEDS: LORazepam 1 MG Tablet PO (14:22)
[2020-12-24] MEDS: Potassium Chloride Oral Tablet 20 MEQ 40 MEQ PO (14:25)
--- NOTE | 2020-12-24 15:12 | CM.ED ---
Addendum entered by Kait Brown 12/24/20 18:14: Telephone call to Michaela Thayer updated on patient admission to [facility] program. Original Note: Social Work Consult: Substance Abuse Referral Source: Self referral due to reason for visit. Met with patient in room. Introduced self and social media senior associate role. Patient agreeable to speak with this social media senior associate. Patient reports to be seeking medical management of withdrawal symptoms, [facility] ([facility]). Patient reports substance of choices a Vodka. Patient reports history of sobriety, but no more than a week. Patient reports I am sick of it all as motivation for seeking treatment. Patient verbally agreeing to [facility] contract. Will notify [facility] of patient admission ones patient is admitted. Lenny SANTIAGO, CONI
--- NOTE | 2020-12-24 17:32 | PCM.HP.STD ---
History of Present Illness Date of Admission: 12/24/20 Chief Complaint: Alcohol detox The patient is a 50 year old M with a PMH as below who presents to the hospital with recurrent request for alcohol detox. His last time for being admitted was approximately 2 weeks ago and he said he was doing well until this weekend when he started drinking about a liter of vodka per day. His last drink was about 2 hours prior to admission. He has gone through withdrawal before with severe nausea and some vomiting and has not had any seizures recently. In the ER he was found to have an BERNARDINO with creatinine 2.16 and a potassium of 3.1. Liver function panel is baseline for him. Past Medical History Past Medical History (Chronic Problems): Chronic Problems (Last Reviewed 04/08/20 @ 17:[address] Simran Carranza DO) Anemia (Chronic) Elevated LFTs (Chronic) GERD (gastroesophageal reflux disease) (Chronic) Alcohol abuse (Chronic) Anxiety (Chronic) Thrombocytopenia (Chronic) Alcohol withdrawal (Chronic) Hypokalemia (Chronic) Arthritis of left hip (Chronic) Tobacco dependency (Chronic) Medical History: Medical History (Last Reviewed 04/08/20 @ 17:[address] Simran Carranza DO) Hx of seizure disorder Z86.69 Allergies diphenhydramine HCl [From Benadryl] Adverse Reaction (Verified 12/24/20 11:48) Swelling mushroom Adverse Reaction (Verified 12/24/20 11:48) Vomiting Home Medications: Ambulatory Orders Medication Instructions Recorded RX: Nicotine [Nicoderm Cq] 21 mg TD DAILY 11/03/20 RX: Phenobarbital 32.4 mg PO TID #10 tab 11/21/20 RX: hydrOXYzine pamoate capsule 25 - 50 mg PO Q6H PRN PRN #20 cap 11/21/20 [Vistaril pamoate capsule] RX: traZODone [Desyrel] 100 mg PO QHS PRN #15 tab 11/21/20 Surgical History: noncontributory, tonsillectomy Psychiatric History: No pertinent psych hx Smoking Status: Current every day smoker Tobacco Use: Cigarettes Alcohol: Heavy Drugs: None - *Family History Sibling History Items: - - Thyroid disease. Maternal History Items: Hypertension, - - Thyroid disease. Paternal History Items: Diabetes Review of Systems Constitutional: Denies: Chills, Fever, Weight Change HEENT: Denies: Head Aches, Sinus Congestion, Sinus Drainage Cardiovascular: Denies: Chest Pain, Palpitations Respiratory: Denies: Cough, Shortness of breath at rest, Sputum production Gastrointestinal: Reports: Nausea. Denies: Abdominal Pain, Vomiting Genitourinary: Denies: Dysuria Musculoskeletal: Denies: Joint Pain, Joint Tenderness Skin: Denies: Rash, Wounds Neurological: Denies: Numbness, Tingling, Focal weakness Psychiatric: Reports: Anxiety. Denies: Depression Hematologic/ Lymphatic: Denies: Easy Bruising, Easy Bleeding VTE Information - Inpt Only VTE Present on Admission: No Patient Problems: Active and Suspected Problems (Last Reviewed 04/08/20 @ 17:[address] Simran Carranza, DO) Acute kidney injury (Acute) - Physical Exam Vitals/I&O's: Vital Signs Temp Pulse Resp BP Pulse Ox 98.8 F 116 H 16 152/101 H 100 12/24/20 16:45 12/24/20 16:45 12/24/20 16:45 12/24/20 16:45 12/24/20 16:45 Oxygen Delivery Method Room Air Weight: 153 lb 14.122 oz Body Mass Index (BMI) 19.8 Finger Stick Blood Glucose 146 General: Alert, Oriented x3, Cooperative, No apparent distress HEENT: Atraumatic, PERRLA, EOMI, Normocephalic Oral: Moist Mucosa Neck: Supple, No JVD Lungs: Clear to auscultation, Normal air movement, No rhonchi, No wheeze, No rales Cardiovascular: Regular rate, Regular Rhythm, Normal S1, Normal S2, No murmurs Abdomen: Soft, Non Tender, Non-Distended, No Hepato-splenomegaly Extremities: No edema, Capillary Refill Less than 3 Seconds Skin: No rashes, No breakdown Neurological: Neuro grossly intact, Sensory exam intact to light touch and pain Psych/Mental Status: Anxious, Restless Microbiology Past 72 Hours 12/24/20 14:10 Mucosa - Nose SARS-CoV-2 Antigen (Rapid) - Final Laboratory Results 12/24/20 13:26: WBC 10.5, RBC 4.62, Hgb 15.2, Hct 44.7, MCV 96.8 H, MCH 32.9 H, MCHC 34.0, RDW Std Deviation 48.9 H, RDW Coeff of Isabel 13.6, Plt Count 59 L, MPV 9.8, Immature Gran % (Auto) 0.400, Neut % (Auto) 81.3 H, Lymph % (Auto) 8.4 L, [place] % (Auto) 9.4, Eos % (Auto) 0.0, Baso % (Auto) 0.5, Absolute Neuts (auto) 8.5 H, Absolute Lymphs (auto) 0.88, Nucleated RBC % 0, Platelet Estimate MKD 12/24/20 13:26: PT 11.8, INR 0.9, APTT 25.3 12/24/20 13:26: Sodium 136, Potassium 3.1 L, Chloride 78 L, Carbon Dioxide 24.0, Anion Gap 34 H, BUN 30 H, Creatinine 2.16 H, Estim Creat Clear Calc 43.38, Est GFR (MDRD) Af Amer 42 L, Est GFR (MDRD) Non-Af 34 L, BUN/Creatinine Ratio 13.9, Glucose 94, Calcium 9.7, Total Bilirubin 1.20 H, AST 149 H, ALT 101 H, Alkaline Phosphatase 80, Total Protein 10.5 H, Albumin 5.3 H, Globulin 5.2 H, Albumin/Globulin Ratio 1.0 12/24/20 13:26: Ethyl Alcohol 50.0 Current Medications Dicyclomine HCl (Dicyclomine 10 Mg Capsule) 20 mg PO Q6H PRN PRN PRN Reason: abdominal discomfort Folic Acid (Folic Acid 1 Mg Tablet) 1 mg PO DAILY@0800 [facility] Gabapentin (Gabapentin 300 Mg Capsule) 300 mg PO Q8H PRN PRN PRN Reason: moderate to severe anxiety Hydroxyzine Pamoate (Hydroxyzine Sirena 25 Mg Capsule) 50 mg PO Q4H PRN PRN PRN Reason: mild anxiety Sodium Chloride () 1,000 mls @ 125 mls/hr IV .Q8H [facility] Stop: 12/25/20 08:41 Loperamide HCl (Loperamide 2 Mg Capsule) 2 mg PO Q4H PRN PRN PRN Reason: LOOSE STOOLS Nutritional Formula (Lactose Free) (Ensure Enlive 120 Ml Liquid) 120 ml PO 4X/DAY [facility] Ondansetron HCl (Ondansetron 8 Mg Tablet) 8 mg PO Q8H PRN PRN PRN Reason: NAUSEA Phenobarbital (Phenobarbital 32.4 Mg Tablet) 97.2 mg PO Q4H ROBERT; Taper Stop: 12/29/20 00:59 Sodium Chloride (0.9% Saline Lock 10 Ml Syringe) 10 - 40 ml IV UD PRN PRN Reason: SALINE FLUSH Thiamine HCl (Thiamine Hydrochloride 100 Mg Tablet) 100 mg PO DAILYCM ROBERT Trazodone HCl (Trazodone 100 Mg Tablet) 100 mg PO QHS PRN PRN PRN Reason: INSOMNIA Assessment/Plan All Active Problems (Last Reviewed 04/08/20 @ 17:[address] Simran Carranza, DO) Acute kidney injury (Acute) Suspected COVID-19 virus infection (Resolved) Encephalopathy (Resolved) Hyponatremia (Resolved) Hypokalemia (Acute) 1. Alcohol withdrawal recurrent/BERNARDINO secondary to dehydration from emesis/elevated LFTs/chronic thrombocytopenia -We will continue the alcohol withdrawal protocol with phenobarb taper -We will have him talk with 180 for outpatient rehab plans -Continue with IV fluids as his creatinine is 2.16 on admission and his baseline is 0.6 -Elevated LFTs is chronic as this is thrombocytopenia DVT: Ambulation Inpatient E&M: 74416 Init Hosp L3
[2020-12-24] MEDS: Potassium Chloride Oral Tablet 20 MEQ 60 MEQ PO (17:38)
[2020-12-24] MEDS: 0.9% Normal Saline 1,000 ML 125 ML IV (17:40)
[2020-12-24] MEDS: hydrOXYzine PAM 25 MG Capsule 50 MG PO (21:05)
[2020-12-24] MEDS: traZODone 100 MG Tablet PO (21:05)
[2020-12-24] MEDS: Ondansetron 8 MG Tablet PO (21:12)
[2020-12-24 21:18] LABS: Bacteria 0 SEEN /hpf (None Seen); Mucous, Urine 0 SEEN /hpf (<or=2+); Red Blood Cells-Urine 0 SEEN /hpf (0-5); Squamous Epithelial Cells - UA 0 SEEN /hpf (0-5)
[2020-12-24 21:21] LABS: Color, Urine Yellow (Yellow); Glucose, Dipstick Normal (Normal); Leukocyte Esterase-Dipstick Negative /ul (Negative); Nitrite-Dipstick Negative (Negative); Occult Blood-Urine 50 /ul (Negative); Protein-Dipstick 100 mg/dl (Negative); Specific Gravity, Urine 1.025 (1.002-1.030); Urine Bilirubin Dipstick Negative (Negative); Urine Clarity Clear (Clear); Urine Urobilinogen Normal (Normal)
[2020-12-24 21:26] LABS: Ketone-Dipstick 150 mg/dl (Negative)
[2020-12-24 21:30] LABS: Hyaline Cast 10-25 SEEN /lpf (0-5); White Blood Cells 0-5 SEEN /hpf (0-5)
[2020-12-24 21:40] LABS: Amphetamine Urine VISTA NEGATIVE (<1000 ng/mL); Barbiturate Urine VISTA POSITIVE (< 200 ng/mL); Benzodiazepine Urine VISTA NEGATIVE (< 200 ng/mL); Cocaine Urine VISTA NEGATIVE (< 300 ng/mL); Ecstacy Urine VISTA NEGATIVE (< 500 ng/mL); Methadone Urine VISTA NEGATIVE (< 300 ng/mL); PCP Urine VISTA NEGATIVE (< 25 ng/mL); THC Urine VISTA NEGATIVE (< 50 ng/mL); Vista UDS pH Range 5
[2020-12-25 00:57] VITALS: BP 150/94; PULSE 115; RESP 16; TEMP 37.4; O2SAT 98
[2020-12-25] MEDS: Phenobarbital 32.4 MG Tablet 64.8 MG PO ×6 (01:04→21:47)
[2020-12-25] MEDS: 0.9% Normal Saline 1,000 ML 125 ML IV (01:55)
[2020-12-25 04:00] VITALS: BP 153/99; PULSE 113; RESP 18; TEMP 37.2; O2SAT 99
[2020-12-25] MEDS: Ondansetron 8 MG Tablet PO (04:53)
[2020-12-25] MEDS: 0.9% Saline Lock 10 ML Syringe IV (06:31)
[2020-12-25] MEDS: proCHLORPERazine 10 MG/2 ML Vial 5 MG IV (06:32)
[2020-12-25 07:15] LABS: AST(SGOT) 77 U/L (15-37); Alanine Aminotransfer ALT/SGPT 61 U/L (16-61); Albumin, Serum 3.9 g/dL (3.2-5.0); Alkaline Phosphatase 62 U/L (45-117); Anion Gap 12 (5-15); BUN 31 mg/dL (7-18); BUN/Creat Ratio 21.8 RATIO (10-20); Calcium,Total 8.5 mg/dL (8.5-10.1); Chloride 94 mmol/L (98-107); Creatinine, Serum 1.42 mg/dL (0.70-1.30); EST Glomerular Filtration Rate 56 mL/min (>60); Est Glom Filt Rate - Afr Amer 67 mL/min (>60); Estimated Creatinine Clearance 60.08 ml/min; Glucose 100 mg/dL (74-106); Potassium 3.5 mmol/L (3.5-5.1); Protein, Total 7.9 g/dL (6.4-8.2); Sodium Level 138 mmol/L (136-145)
[2020-12-25 08:22] VITALS: BP 143/96; PULSE 107; RESP 16; TEMP 37.7; O2SAT 97
[2020-12-25] MEDS: Folic Acid 1 MG Tablet PO (08:32)
[2020-12-25] MEDS: Thiamine Hydrochloride 100 MG Tablet PO (08:32)
--- NOTE | 2020-12-25 10:07 | ADDICTION ---
This television script writer met with PT to complete ASAM, MSE and AUDIT assessments and to plan for d/c. All assessments completed, faxed to [facility] and placed in PT's chart. PT to f/u with Boyd at [facility] upon discharge. No transportation requested.
--- NOTE | 2020-12-25 10:43 | PCM.PN.HOSP ---
Patient Problems: Active and Suspected Problems (Last Reviewed 04/08/20 @ 17:[address] Simran Carranza, DO) Acute kidney injury (Acute) Subjective: Resting comfortably, no issues overnight. Vitals/I&O's: Vital Signs Temp Pulse Resp BP Pulse Ox 99.8 F H 107 H 16 143/96 H 97 12/25/20 08:22 12/25/20 08:22 12/25/20 08:22 12/25/20 08:22 12/25/20 08:22 Oxygen Delivery Method Room Air Weight: 153 lb 14.122 oz Body Mass Index (BMI) 19.8 Finger Stick Blood Glucose 146 Intake and Output for Last 24 Hours 12/23/20 12/24/20 12/25/20 23:59 23:59 23:59 Intake Total 1000 / 1360 2360 / 2360 Output Total 250 / 550 300 / 300 Balance 750 / 810 2059 / 2059 General: Alert, Oriented x3, Cooperative, No apparent distress HEENT: Atraumatic, PERRLA, EOMI, Normocephalic Oral: Moist Mucosa Neck: Supple, No JVD Lungs: Clear to auscultation, Normal air movement, No rhonchi, No wheeze, No rales Cardiovascular: Regular rate, Regular Rhythm, Normal S1, Normal S2, No murmurs Abdomen: Soft, Non Tender, Non-Distended, No Hepato-splenomegaly Extremities: No edema, Capillary Refill Less than 3 Seconds Skin: No rashes, No breakdown Neurological: Neuro grossly intact, Sensory exam intact to light touch and pain Psych/Mental Status: Normal affect, appropriate Microbiology Past 72 Hours 12/24/20 14:10 Mucosa - Nose SARS-CoV-2 Antigen (Rapid) - Final Laboratory Results 12/24/20 13:26: WBC 10.5, RBC 4.62, Hgb 15.2, Hct 44.7, MCV 96.8 H, MCH 32.9 H, MCHC 34.0, RDW Std Deviation 48.9 H, RDW Coeff of Isabel 13.6, Plt Count 59 L, MPV 9.8, Immature Gran % (Auto) 0.400, Neut % (Auto) 81.3 H, Lymph % (Auto) 8.4 L, [place] % (Auto) 9.4, Eos % (Auto) 0.0, Baso % (Auto) 0.5, Absolute Neuts (auto) 8.5 H, Absolute Lymphs (auto) 0.88, Nucleated RBC % 0, Platelet Estimate MKD 12/24/20 13:26: PT 11.8, INR 0.9, APTT 25.3 12/24/20 13:26: Sodium 136, Potassium 3.1 L, Chloride 78 L, Carbon Dioxide 24.0, Anion Gap 34 H, BUN 30 H, Creatinine 2.16 H, Estim Creat Clear Calc 43.38, Est GFR (MDRD) Af Amer 42 L, Est GFR (MDRD) Non-Af 34 L, BUN/Creatinine Ratio 13.9, Glucose 94, Calcium 9.7, Total Bilirubin 1.20 H, AST 149 H, ALT 101 H, Alkaline Phosphatase 80, Total Protein 10.5 H, Albumin 5.3 H, Globulin 5.2 H, Albumin/Globulin Ratio 1.0 12/24/20 13:26: Ethyl Alcohol 50.0 12/24/20 21:00: Urine Color Yellow, Urine Clarity Clear, Urine pH 5.0, Ur Specific [place] 1.025, Urine Protein 100 H, Urine Glucose (UA) Normal, Urine Ketones 150 H, Urine Occult Blood 50 H, Urine Nitrite Negative, Urine Bilirubin Negative, Urine Urobilinogen Normal, Ur Leukocyte Esterase Negative, Urine RBC 0 SEEN, Urine WBC 0-5 SEEN, Ur Squamous Epith Cells 0 SEEN, Urine Bacteria 0 SEEN, Hyaline Casts 10-25 SEEN, Urine Mucus 0 SEEN 12/24/20 21:00: Urine Opiates Screen NEGATIVE, Urine Methadone Screen NEGATIVE, Ur Barbiturates Screen POSITIVE H, Ur Phencyclidine Scrn NEGATIVE, Ur Amphetamines Screen NEGATIVE, U Methamphetamin-MDMA NEGATIVE, U Benzodiazepines Scrn NEGATIVE, Urine Cocaine Screen NEGATIVE, U Cannabinoids Screen NEGATIVE, Ur Drug Screen Comment 12/25/20 06:00: Sodium 138, Potassium 3.5, Chloride 94 L, Carbon Dioxide 32.0, Anion Gap 12, BUN 31 H, Creatinine 1.42 H, Estim Creat Clear Calc 60.08, Est GFR (MDRD) Af Amer 67, Est GFR (MDRD) Non-Af 56 L, BUN/Creatinine Ratio 21.8 H, Glucose 100, Calcium 8.5, Total Bilirubin 1.10 H, AST 77 H, ALT 61, Alkaline Phosphatase 62, Total Protein 7.9, Albumin 3.9, Globulin 4.0, Albumin/Globulin Ratio 1.0 Current Medications Dicyclomine HCl (Dicyclomine 10 Mg Capsule) 20 mg PO Q6H PRN PRN PRN Reason: abdominal discomfort Folic Acid (Folic Acid 1 Mg Tablet) 1 mg PO DAILY@0800 [facility] Last Admin: 12/25/20 08:32 Dose: 1 mg Documented by: Gabapentin (Gabapentin 300 Mg Capsule) 300 mg PO Q8H PRN PRN PRN Reason: moderate to severe anxiety Hydroxyzine Pamoate (Hydroxyzine Sirena 25 Mg Capsule) 50 mg PO Q4H PRN PRN PRN Reason: mild anxiety Last Admin: 12/24/20 21:05 Dose: 50 mg Documented by: Loperamide HCl (Loperamide 2 Mg Capsule) 2 mg PO Q4H PRN PRN PRN Reason: LOOSE STOOLS Nicotine (Nicotine 21 Mg Patch) 21 mg TD DAILY [facility] Last Admin: 12/25/20 08:33 Dose: 21 mg Documented by: Nutritional Formula (Lactose Free) (Ensure Enlive 120 Ml Liquid) 120 ml PO 4X/DAY [facility] Last Admin: 12/25/20 08:36 Dose: 120 ml Documented by: Ondansetron HCl (Ondansetron 8 Mg Tablet) 8 mg PO Q8H PRN PRN PRN Reason: NAUSEA Last Admin: 12/25/20 04:53 Dose: 8 mg Documented by: Phenobarbital (Phenobarbital 32.4 Mg Tablet) 97.2 mg PO Q4H [facility]; Taper Stop: 12/29/20 00:59 Last Admin: 12/25/20 08:32 Dose: 97.2 mg Documented by: Prochlorperazine Edisylate (Prochlorperazine 10 Mg/2 Ml Vial) 5 mg IV Q6H PRN PRN PRN Reason: NAUSEA/VOMITING Last Admin: 12/25/20 06:32 Dose: 5 mg Documented by: Sodium Chloride (0.9% Saline Lock 10 Ml Syringe) 10 - 40 ml IV UD PRN PRN Reason: SALINE FLUSH Last Admin: 12/25/20 06:31 Dose: 10 ml Documented by: Thiamine HCl ([facility]iamine Hydrochloride 100 Mg Tablet) [facility] Last Admin: 03/19/21 08:32 Dose: 100 mg Documented by: Trazodone HCl (Trazodone 100 Mg Tablet) 100 mg PO QHS PRN PRN PRN Reason: INSOMNIA Last Admin: 12/24/20 21:05 Dose: 100 mg Documented by: STROKE Vital Signs/Narrative: Vital Signs Temp Pulse Resp BP Pulse Ox 12/25/20 08:22 99.8 F H 107 H 16 143/96 H 97 Medical Necessity - Tobacco Use Smoking Status: Current every day smoker Tobacco Use: Cigarettes Assessment/Plan All Active Problems (Last Reviewed 04/08/20 @ 17:[address] Simran Carranza, DO) Acute kidney injury (Acute) Suspected COVID-19 virus infection (Resolved) Encephalopathy (Resolved) Hyponatremia (Resolved) Hypokalemia (Acute) 1. Alcohol withdrawal recurrent/BERNARDINO secondary to dehydration from emesis/elevated LFTs/chronic thrombocytopenia -We will continue the alcohol withdrawal protocol with phenobarb taper -We will have him talk with 180 for outpatient rehab plans -Continue with IV fluids as his creatinine is 2.16 on admission and his baseline is 0.6 -Elevated LFTs is chronic as is thrombocytopenia DVT: Ambulation Inpatient E&M: 40743 Subs Hosp L2
[2020-12-25 13:56] VITALS: BP 128/86; PULSE 95; RESP 16; TEMP 37.3; O2SAT 98
[2020-12-25 21:37] VITALS: BP 130/84; PULSE 88; RESP 16; TEMP 36.9; O2SAT 98
[2020-12-25] MEDS: traZODone 100 MG Tablet PO (21:46)
[2020-12-25] MEDS: hydrOXYzine PAM 25 MG Capsule 50 MG PO (21:47)
[2020-12-26] MEDS: Phenobarbital 32.4 MG Tablet 64.8 MG PO ×6 (01:16→22:27)
[2020-12-26 03:35] VITALS: BP 132/77; PULSE 77; RESP 18; TEMP 37.1; O2SAT 94
[2020-12-26 08:28] VITALS: BP 125/88; PULSE 80; RESP 18; TEMP 36.9; O2SAT 97
[2020-12-26] MEDS: Folic Acid 1 MG Tablet PO (08:34)
[2020-12-26] MEDS: Thiamine Hydrochloride 100 MG Tablet PO (08:34)
[2020-12-26] MEDS: hydrOXYzine PAM 25 MG Capsule 50 MG PO ×2 (08:42→22:27)
[2020-12-26 08:52] VITALS: RESP 18; O2SAT 97
[2020-12-26 09:20] LABS: Anion Gap 6 (5-15); BUN 22 mg/dL (7-18); BUN/Creat Ratio 23.7 RATIO (10-20); Calcium,Total 8.6 mg/dL (8.5-10.1); Chloride 94 mmol/L (98-107); Creatinine, Serum 0.93 mg/dL (0.70-1.30); EST Glomerular Filtration Rate 91 mL/min (>60); Est Glom Filt Rate - Afr Amer 110 mL/min (>60); Estimated Creatinine Clearance 91.73 ml/min; Glucose 97 mg/dL (74-106); Potassium 3.1 mmol/L (3.5-5.1); Sodium Level 133 mmol/L (136-145)
--- NOTE | 2020-12-26 11:22 | PCM.PN.HOSP ---
Patient Problems: Active and Suspected Problems (Last Reviewed 04/08/20 @ 17:[address] Simran Carranza DO) Acute kidney injury (Acute) Subjective: Patient seen and examined. He has no complaints. Review of systems otherwise negative. CIWA score is 4 this morning. he has remained hemodynamically stable. Vitals/I&O's: Vital Signs Temp Pulse Resp BP Pulse Ox 98.5 F 80 18 125/88 H 97 12/26/20 08:28 12/26/20 08:28 12/26/20 08:52 12/26/20 08:28 12/26/20 08:52 Oxygen Delivery Method Room Air Weight: 153 lb 14.122 oz Body Mass Index (BMI) 19.8 Finger Stick Blood Glucose 146 Intake and Output for Last 24 Hours 12/24/20 12/25/20 12/26/20 23:59 23:59 23:59 Intake Total 1000 / 1360 2360 / 2360 700 / 700 Output Total 250 / 550 1200 / 1200 1300 / 1300 Balance 750 / 810 1160 / 1160 -600 / -600 General: Alert, Oriented x3, Cooperative, No apparent distress HEENT: Atraumatic, PERRLA, EOMI, Normocephalic Oral: Moist Mucosa Neck: Supple, No JVD Lungs: Clear to auscultation, Normal air movement, No rhonchi, No wheeze, No rales Cardiovascular: Regular rate, Regular Rhythm, Normal S1, Normal S2, No murmurs Abdomen: Soft, Non Tender, Non-Distended, No Hepato-splenomegaly Extremities: No edema, Capillary Refill Less than 3 Seconds Skin: No rashes, No breakdown Neurological: Neuro grossly intact, Sensory exam intact to light touch and pain Psych/Mental Status: flat affect. Microbiology Past 72 Hours 12/24/20 14:10 Mucosa - Nose SARS-CoV-2 Antigen (Rapid) - Final Laboratory Results 12/26/20 08:15: Sodium 133 L, Potassium 3.1 L, Chloride 94 L, Carbon Dioxide 33.0 H, Anion Gap 6, BUN 22 H, Creatinine 0.93, Estim Creat Clear Calc 91.73, Est GFR (MDRD) Af Amer 110, Est GFR (MDRD) Non-Af 91, BUN/Creatinine Ratio 23.7 H, Glucose 97, Calcium 8.6 Current Medications Dicyclomine HCl (Dicyclomine 10 Mg Capsule) 20 mg PO Q6H PRN PRN PRN Reason: abdominal discomfort Folic Acid (Folic Acid 1 Mg Tablet) 1 mg PO DAILY@0800 [facility] Last Admin: 12/26/20 08:34 Dose: 1 mg Documented by: Gabapentin (Gabapentin 300 Mg Capsule) 300 mg PO Q8H PRN PRN PRN Reason: moderate to severe anxiety Hydroxyzine Pamoate (Hydroxyzine Sirena 25 Mg Capsule) 50 mg PO Q4H PRN PRN PRN Reason: mild anxiety Last Admin: 12/26/20 08:42 Dose: 50 mg Documented by: Loperamide HCl (Loperamide 2 Mg Capsule) 2 mg PO Q4H PRN PRN PRN Reason: LOOSE STOOLS Nicotine (Nicotine 21 Mg Patch) 21 mg TD DAILY [facility] Last Admin: 12/26/20 08:35 Dose: 21 mg Documented by: Nutritional Formula (Lactose Free) (Ensure Enlive 120 Ml Liquid) 120 ml PO 4X/DAY [facility] Last Admin: 12/26/20 08:35 Dose: 120 ml Documented by: Ondansetron HCl (Ondansetron 8 Mg Tablet) 8 mg PO Q8H PRN PRN PRN Reason: NAUSEA Last Admin: 12/25/20 04:53 Dose: 8 mg Documented by: Phenobarbital (Phenobarbital 32.4 Mg Tablet) 64.8 mg PO Q4H [facility]; Taper Stop: 12/29/20 00:59 Last Admin: 12/26/20 08:34 Dose: 64.8 mg Documented by: Prochlorperazine Edisylate (Prochlorperazine 10 Mg/2 Ml Vial) 5 mg IV Q6H PRN PRN PRN Reason: NAUSEA/VOMITING Last Admin: 12/25/20 06:32 Dose: 5 mg Documented by: Sodium Chloride (0.9% Saline Lock 10 Ml Syringe) 10 - 40 ml IV UD PRN PRN Reason: SALINE FLUSH Last Admin: 12/25/20 06:31 Dose: 10 ml Documented by: Thiamine HCl ([facility] Hydrochloride 100 Mg Tablet) [facility] Last Admin: 12/26/20 08:34 Dose: 100 mg Documented by: Trazodone HCl (Trazodone 100 Mg Tablet) 100 mg PO QHS PRN PRN PRN Reason: INSOMNIA Last Admin: 12/25/20 21:46 Dose: 100 mg Documented by: STROKE Vital Signs/Narrative: Vital Signs Temp Pulse Resp BP Pulse Ox 12/26/20 08:52 18 97 12/26/20 08:28 98.5 F 80 18 125/88 H 97 Medical Necessity - Tobacco Use Smoking Status: Current every day smoker Tobacco Use: Cigarettes Assessment/Plan All Active Problems (Last Reviewed 04/08/20 @ 17:[address] Simran Carranza, DO) Acute kidney injury (Acute) Suspected COVID-19 virus infection (Resolved) Encephalopathy (Resolved) Hyponatremia (Resolved) Hypokalemia (Acute) #Acute alcohol withdrawal CIWA score today is 4 on alcohol withdrawal protocol with phenobarbital on thiamine, folic acid and multivites monitor CIWA score #BERNARDINO due to dehydration: resolved #Hypokalemia: K today is 3.1. Will replace and monitor #Chronic thrombocytopenia: due to alcohol abuse. Stable. Will monitor #Elevated liver enzymes: due to chronic alcohol use. stable. Will monitor DVT prophylaxis: SCDs. Inpatient E&M: 52334 Subs Hosp L2
[2020-12-26 12:52] VITALS: BP 128/87; PULSE 87; RESP 18; TEMP 36.7; O2SAT 96
[2020-12-26 16:00] VITALS: RESP 18; O2SAT 96
[2020-12-26 22:14] VITALS: BP 121/78; PULSE 87; RESP 17; TEMP 37.1; O2SAT 96
[2020-12-26] MEDS: traZODone 100 MG Tablet PO (22:27)
[2020-12-27] MEDS: Phenobarbital 32.4 MG Tablet 64.8 MG PO ×3 (01:48→12:17)
[2020-12-27 01:55] VITALS: BP 125/77; PULSE 81; RESP 16; TEMP 36.6; O2SAT 95
[2020-12-27 08:00] VITALS: BP 140/87; PULSE 79; RESP 18; TEMP 37.3; O2SAT 97
[2020-12-27] MEDS: Thiamine Hydrochloride 100 MG Tablet PO (08:10)
[2020-12-27] MEDS: Folic Acid 1 MG Tablet PO (08:10)
[2020-12-27 08:25] VITALS: BP 147/87; PULSE 78; RESP 18; TEMP 37.2; O2SAT 96
[2020-12-27 08:28] VITALS: RESP 18; O2SAT 96
--- NOTE | 2020-12-27 09:22 | DCINST_ITS ---
- Discharge Diagnoses Current Active Problems: Current Active and Chronic Problems (Last Reviewed 04/08/20 @ 17:[address] Simran Carranza, DO) Acute kidney injury (Acute) Alcohol withdrawal (Chronic) You will use the following diet at home:: Cardiac Your food should be the consistency of: Regular Your liquids should be the consistency of: Regular/Thin Discharge Activity: Return to Normal Activity Weight Bearing Status: Weight bearing as tolerated Call your doctor if you observe: Fever of 101 or Higher, Shortness of breath, Dizziness, Fainting spells Instructions: ED Alcohol Abuse, ED Drug Abuse Additional Instructions: follow up at [facility] on outpatient basis. To have follow up BMP on outpatient basis within one week to monitor potassium levels. Allergies/Adverse Reactions: Allergies diphenhydramine HCl [From Benadryl] Adverse Reaction (Verified 12/24/20 11:48) Swelling mushroom Adverse Reaction (Verified 12/24/20 11:48) Vomiting Medications to take at Discharge Nicotine [Nicoderm Cq] 21 mg TD DAILY 11/03/20 Phenobarbital 32.4 mg PO TID #10 tab 11/21/20 hydrOXYzine pamoate capsule [Vistaril pamoate capsule] 25 - 50 mg PO Q6H PRN PRN #20 cap 11/21/20 traZODone [Desyrel] 100 mg PO QHS PRN #15 tab 11/21/20 Potassium Chloride Oral Tablet [K-Dur] 20 meq PO DAILY #10 tab 12/27/20 The following prescriptions were given: Potassium Chloride Oral Tablet [K-Dur] 20 meq PO DAILY #10 tab Transmission Status: Pending to [employer] #30 Primary Care Physician: Elmer Bolton MD [STAFF PHYSICIAN] - Please follow up with your Primary Care Physician in: 1-2 weeks Test Results: Test results from this visit will be discussed in further detail at your follow- up appointment, if applicable. Proposed Discharge Date: 12/27/20
--- NOTE | 2020-12-27 09:24 | PCM.DC.SUM ---
Discharge Date and Diagnosis - Problem List Patient Problems: Active and Suspected Problems (Last Reviewed 04/08/20 @ 17:[address] Simran Carranza DO) Acute kidney injury (Acute) Date of Admission: 12/24/20 Date of Discharge: 12/27/20 - Primary Discharge Diagnosis Acute Problems: Active Problems (Last Reviewed 04/08/20 @ 17:[address] Simran Carranza DO) Acute kidney injury (Acute) acute alcohol withdrawal - Secondary Discharge Diagnosis Chronic Problems: Chronic Problems (Last Reviewed 04/08/20 @ 17:[address] Simran Carranza DO) Anemia (Chronic) Elevated LFTs (Chronic) GERD (gastroesophageal reflux disease) (Chronic) Alcohol abuse (Chronic) Anxiety (Chronic) Thrombocytopenia (Chronic) Alcohol withdrawal (Chronic) Hypokalemia (Chronic) Arthritis of left hip (Chronic) Tobacco dependency (Chronic) Hospital Course and Treatment Imaging Results: Diagnostic Data Chest X-Ray 12/24/20 13:40 IMPRESSION: Hyperinflation. Electronically Signed: Saeed Gan MD at 13:58 EDT , Service support , Operations: None Procedures: None Summary of Care Provided: The patient is a 50 year old M with an extensive PMH as outlined. He was admitted via the ED on 12/24/2020 for acute alcohol withdrawal. He had been admitted about 2 weeks prior to this admission for acute alcohol withdrawal. He drank 1L of vodka daily, and his last drink was bout 2 hours prior to admission. He was admitted and managed for acute alcohol withdrawal. He was also found to be in BERNARDINO with creatinine of 2.16 and potassium of 3.1. Potassium was replaced, and he was hydrated with IVF. Cr trended down. He tolerated 3 day detox process. He was discharged home on 12/27/2020. He is to follow up with PCP in 1-2 weeks, and also to follow up at [facility]. Of note, he was also discharged with PO potassium choride 20meq daily x 10 tablets due to hypokalemia, and is to follow up with his PCP for follow up BMP to check potassium levels. Patient seen and examined prior to discharge. He had no complaints and review of systems otherwise negative. Labs and vitals reviewed. Home medication reviewed and reconciled. O/E: Vital Signs Temp Pulse Resp BP Pulse Ox 98.9 F 78 18 147/87 H 96 12/27/20 08:25 12/27/20 08:25 12/27/20 08:28 12/27/20 08:25 12/27/20 08:28 General: Alert, Oriented x3, Cooperative, No apparent distress HEENT: Atraumatic, PERRLA, EOMI, Normocephalic Oral: Moist Mucosa Neck: Supple, No JVD Lungs: Clear to auscultation, Normal air movement, No rhonchi, No wheeze, No rales Cardiovascular: Regular rate, Regular Rhythm, Normal S1, Normal S2, No murmurs Abdomen: Soft, Non Tender, Non-Distended, No Hepato-splenomegaly Extremities: No edema, Capillary Refill Less than 3 Seconds Skin: No rashes, No breakdown Neurological: Neuro grossly intact, Sensory exam intact to light touch and pain Psych/Mental Status: flat affect. Plan is for discharge home today. Patient Problems: Active and Suspected Problems (Last Reviewed 04/08/20 @ 17:[address] Simran Carranza, DO) Acute kidney injury (Acute) - Physical Exam Vitals/I&O's: Vital Signs Temp Pulse Resp BP Pulse Ox 98.9 F 78 18 147/87 H 96 12/27/20 08:25 12/27/20 08:25 12/27/20 08:28 12/27/20 08:25 12/27/20 08:28 Oxygen Delivery Method Room Air Weight: 153 lb 14.122 oz Body Mass Index (BMI) 19.8 Finger Stick Blood Glucose 146 Intake and Output for Last 24 Hours 12/25/20 12/26/20 12/27/20 23:59 23:59 23:59 Intake Total 2360 / 2360 1950 / 1950 1080 / 1080 Output Total 1200 / 1200 1650 / 1650 300 / 300 Balance 1160 / 1160 300 / 300 780 / 780 Microbiology Past 72 Hours 12/24/20 14:10 Mucosa - Nose SARS-CoV-2 Antigen (Rapid) - Final Current Medications Dicyclomine HCl (Dicyclomine 10 Mg Capsule) 20 mg PO Q6H PRN PRN PRN Reason: abdominal discomfort Folic Acid (Folic Acid 1 Mg Tablet) 1 mg PO DAILY@0800 [facility] Last Admin: 12/27/20 08:10 Dose: 1 mg Documented by: Gabapentin (Gabapentin 300 Mg Capsule) 300 mg PO Q8H PRN PRN PRN Reason: moderate to severe anxiety Hydroxyzine Pamoate (Hydroxyzine Sirena 25 Mg Capsule) 50 mg PO Q4H PRN PRN PRN Reason: mild anxiety Last Admin: 12/26/20 22:27 Dose: 50 mg Documented by: Loperamide HCl (Loperamide 2 Mg Capsule) 2 mg PO Q4H PRN PRN PRN Reason: LOOSE STOOLS Nicotine (Nicotine 21 Mg Patch) 21 mg TD DAILY [facility] Last Admin: 12/27/20 08:10 Dose: 21 mg Documented by: Nutritional Formula (Lactose Free) (Ensure Enlive 120 Ml Liquid) 120 ml PO 4X/DAY [facility] Last Admin: 12/27/20 08:09 Dose: 120 ml Documented by: Ondansetron HCl (Ondansetron 8 Mg Tablet) 8 mg PO Q8H PRN PRN PRN Reason: NAUSEA Last Admin: 12/25/20 04:53 Dose: 8 mg Documented by: Phenobarbital (Phenobarbital 32.4 Mg Tablet) 64.8 mg PO Q6H [facility]; Taper Stop: 12/29/20 00:59 Last Admin: 12/27/20 06:43 Dose: 64.8 mg Documented by: Prochlorperazine Edisylate (Prochlorperazine 10 Mg/2 Ml Vial) 5 mg IV Q6H PRN PRN PRN Reason: NAUSEA/VOMITING Last Admin: 12/25/20 06:32 Dose: 5 mg Documented by: Sodium Chloride (0.9% Saline Lock 10 Ml Syringe) 10 - 40 ml IV UD PRN PRN Reason: SALINE FLUSH Last Admin: 12/25/20 06:31 Dose: 10 ml Documented by: Thiamine HCl (Thiamine Hydrochloride 100 Mg Tablet) [facility] Last Admin: 12/27/20 08:10 Dose: 100 mg Documented by: Trazodone HCl (Trazodone 100 Mg Tablet) 100 mg PO QHS PRN PRN PRN Reason: INSOMNIA Last Admin: 12/26/20 22:27 Dose: 100 mg Documented by: Discharge Diet: Low fat/ Low Cholesterol Discharge Activity: Return to Normal Activity Weight Bearing Status: Weight bearing as tolerated Call your doctor if you observe: Fever of 101 or Higher, Shortness of breath, Dizziness, Fainting spells Home Medications: Medications to take at Discharge Nicotine [Nicoderm Cq] 21 mg TD DAILY 11/03/20 Phenobarbital 32.4 mg PO TID #10 tab 11/21/20 hydrOXYzine pamoate capsule [Vistaril pamoate capsule] 25 - 50 mg PO Q6H PRN PRN #20 cap 11/21/20 traZODone [Desyrel] 100 mg PO QHS PRN #15 tab 11/21/20 Potassium Chloride Oral Tablet [K-Dur] 20 meq PO DAILY #10 tab 12/27/20 Following Prescriptions Were Given to Patient: Potassium Chloride Oral Tablet [K-Dur] 20 meq PO DAILY #10 tab Transmission Status: Received by [employer] #30 Primary Care Physician: Elmer Bolton MD [STAFF PHYSICIAN] - Please follow up with your Primary Care Physician in: 1-2 weeks Patient Instructions: ED Drug Abuse, ED Alcohol Abuse Disposition: Home Minutes spent on discharge:: 40 Patient Condition:: Stable Medical Necessity - Tobacco Use Smoking Status: Current every day smoker Tobacco Use: Cigarettes Meaningful Use Info Meaningful Use Diagnoses (Choose all that apply): None applicable Inpatient E&M: 48398 Disch Hosp
== END 2020-12-27 11:05 | disposition home or self-care (01) | DRG 775 ==
LOC: ED 15:23 → MS3 15:58
PROVIDERS: Admitting Provider Family Medicine; Emergency Provider Emergency Medicine; PCP Family Medicine; Visit Provider Student in an Organized Health Care Education/Training Program
DX: F10.239 Alcohol dependence with withdrawal, unspecified (principal); E86.0 Dehydration; N17.9 Acute kidney failure, unspecified; M16.12 Unilateral primary osteoarthritis, left hip; F41.9 Anxiety disorder, unspecified; F32.9 Major depressive disorder, single episode, unspecified; E87.6 Hypokalemia; D69.59 Other secondary thrombocytopenia; Z86.2 Personal history of diseases of the blood and blood-forming organs and certain disorders involving the immune mechanism; F17.210 Nicotine dependence, cigarettes, uncomplicated
CPT/HCPCS: 36415; 71045; 80048; 80053; 80307; 81001; 82077; 85025; 85610; 85730; 87426; 93005; 97802; 99285; 99406; J7030; A4216

== ENCOUNTER 2021-02-22 16:02 | Inpatient (IN) | payer MEDICAID, SELFPAY ==
[2020-12-24 16:49] VITALS: BMI 19.8
[2021-02-22 16:04] VITALS: BP 144/95; PULSE 143; RESP 20; TEMP 36.6; O2SAT 99; BMI 19.2
--- NOTE | 2021-02-22 16:15 | EKG12_ITS ---
Test Reason : SUBSTANCE ABUSE Blood Pressure : / mmHG Vent. Rate : 108 BPM Atrial Rate : 108 BPM P-R Int : 138 ms QRS Dur : 078 ms QT Int : 378 ms P-R-T Axes : 057 -22 057 degrees QTc Int : 506 ms Sinus tachycardia Otherwise normal ECG Confirmed by NOAM PRICE, JACQUELINE ([id number]), legal editor HANNA COLLINS ([id number]) on 02/23/2021 10:06:47 AM Referred By: URIAH Confirmed By:JACQUELINE SANTACRUZ MD
--- NOTE | 2021-02-22 16:15 | CT_ITS ---
STUDY: CT BRAIN WITHOUT CONTRAST REASON FOR EXAM: Male, 50 years old. Left arm and leg paresthesias. Nausea and vomiting. EtOH seizures. Patient had detox. RADIATION DOSAGE (If Supplied By Facility): CTDIvol = ( 44.99 ) mGy, DLP = ( 829.85 ) mGycm TECHNIQUE: Transaxial CT imaging of the brain was performed without administration of intravenous contrast material. Individualized dose optimization techniques were used for this CT. COMPARISON: 11/03/2020. FINDINGS: Normal soft tissue structures. Normal calvarium. There is mild cerebral atrophy with widening of the extra-axial spaces and ventricular dilatation. Normal white matter tracts of the cerebral hemispheres. Normal basal ganglia and thalami. Normal brainstem. Normal cerebellum. There is no intracranial hemorrhage. There are no findings of an acute ischemic infarction. Normal visualized paranasal sinuses. CT/Brain/Head without Contrast IMPRESSION: No acute intracranial or calvarial abnormality. No major interval change. Electronically Signed: Luis Alfredo Keane DO at 17:33 EDT Tel [phone], Service support ,
--- NOTE | 2021-02-22 16:17 | EDS_ITS ---
HPI History of Present Illness Chief Complaint: Substance Abuse Informant: patient Narrative Narrative: 48-year-old male presents to the emergency department seeking detox from alcohol. Patient currently consumes approximately 1 gallon of vodka per day. Patient's last drink was about 6 hours prior to arrival. He states he suffers from depression and isolationism. He states that for the past several weeks he has had left arm and leg weakness and paresthesias. He has made several primary care appointments. He made several primary care appointments (Dr. Gonzalez) but did not go to them. He reports that over the past couple days he has had nausea and vomiting. He denies diarrhea. He states he has been consuming alcohol as well as water and Gatorade. He denies any headache or recent head injuries/falls. No blood in stool or vomit. He denies any known heart issues. Patient denies suicidality. [facility] Medical History (Updated 02/22/21 @ 21:[address] Ifeanyi Best DO) Alcohol abuse Alcohol abuse Depression Hx of seizure disorder Hypertension Sleep apnea Smoker TBI (traumatic brain injury) Home Medications nicotine 21 mg TD DAILY 11/03/20 [History Last Taken 12/17/20] potassium chloride 20 meq PO DAILY #10 tab 12/27/20 [Rx Last Taken Unknown] hydroxyzine pamoate 25 mg capsule 25 - 50 mg PO Q6H PRN PRN #20 cap 12/29/20 [Rx Last Taken Unknown] phenobarbital 32.4 mg tablet 32.4 mg PO TID #10 tab 12/29/20 [Rx Last Taken Unknown] trazodone 100 mg tablet 100 mg PO QHS PRN #15 tab 12/29/20 [Rx Last Taken Unknown] Allergy/AdvReac Type Severity Reaction Status Date / Time diphenhydramine HCl AdvReac Swelling Verified 02/22/21 16:04 [From Benadryl] mushroom AdvReac Vomiting Verified 02/22/21 16:04 Social History (Updated 02/22/21 @ 16:[address] Ifeanyi Best DO) Smoking Status: Current every day smoker details: 1 gallon of vodka per day substance use type: does not use ROS ROS ED Constitutional Constitutional ED: Reports sweats; Denies chills or weight loss Eyes Eyes: Denies change in vision or diplopia ENT ENT ED: Denies ear pain, rhinorrhea or sore throat Cardiovascular Cardiovascular: Reports racing heartbeat; Denies chest pain, orthopnea or palpitations Respiratory/Chest Respiratory/Chest: Reports cough; Denies dyspnea or orthopnea Gastrointestinal Gastrointestinal: Reports nausea and vomiting; Denies abdominal pain or diarrhea Genitourinary Genitourinary ED: Denies dysuria, hematuria or urinary frequency Musculoskeletal Musculoskeletal: Denies arthralgias or myalgias Integumentary Denies abscess or rash Neurologic Neurologic: Reports paresthesias and weakness; Denies headache(s) Psychiatric Psychiatric: Reports depression; Denies anxiety, suicidal ideation or suicidal thoughts Endocrine Endocrinology: Denies polydipsia, polyphagia or polyuria Allergic/Immunologic Allergic/Immunologic ED: Denies mouth swelling, tongue swelling or urticaria EXAM Physical Exam Const Vital Signs: 02/22/21 16:04 02/22/21 16:23 02/22/21 18:35 Temperature 97.8 F Temperature Source Temporal Pulse Rate 143 H 110 H 115 H Respiratory Rate 20 H 12 17 Blood Pressure 144/95 H 133/107 H 139/96 H Blood Pressure Mean 111 115 110 Pulse Ox 99 98 97 Oxygen Delivery Method Room Air Room Air Room Air 02/22/21 19:30 Temperature Temperature Source Pulse Rate 97 Respiratory Rate 12 Blood Pressure 122/88 H Blood Pressure Mean 99 Pulse Ox 99 Oxygen Delivery Method Room Air Positive well nourished, well developed and unkempt General Appearance ED: unkempt and well developed HEENT Reports normocephalic, head/scalp atraumatic and moist mucous membranes Eyes PERRL and EOMs intact bilaterally Neck no lymphadenopathy, supple and no JVD Resp normal respiratory effort and clear to auscultation bilaterally Cardio regular rate and no murmurs Rate: tachycardic GI normal to inspection, nondistended, normoactive bowel sounds and non-tender Palpation: soft Back/Spine no CVA tenderness and normal ROM Extremity normal to inspection General Extremety ED: Negative for edema General Extremity: Negative for edema Neuro oriented x3 and CN's II-XII intact bilaterally Neuro Narrative: NIH 0 Sensorium / Orientation: alert Motor Exam: strength 5/5 throughout Psych Appearance: unkempt Mood & Affect: depressed; Negative for tearful Skin no rashes or lesions noted and no wounds MDM MDM MDM Narrative Medical decision making narrative: IV was established and the patient received several liters of IV fluids. He also received a milligram of Ativan Zofran folic acid and thiamine. Basic blood work showed a lactic acid of 3.4. Serum EtOH is 175. My interpretation of the chest x-ray is chronic changes no acute issues. CT of the brain does not demonstrate any acute or subacute infarcts to explain his left-sided paresthesias. Despite the IV fluids the patient after 4- 1/2 hours is still unable to give us a urine specimen. His heart rate has significantly improved from 1 43-97. Lab Data Attestation: I reviewed the patient's lab results. Labs: Laboratory Results - last 24 hr 02/22/21 02/22/21 02/22/21 16:25 16:25 16:25 WBC 5.5 RBC 4.01 L Hgb 13.2 Hct 38.9 L MCV 97.0 H MCH 32.9 H MCHC 33.9 RDW Std Deviation 55.6 H RDW Coeff of Isabel 15.3 H Plt Count 47 L* MPV 9.3 Immature Gran % (Auto) 0.400 Neut % (Auto) 66.9 Lymph % (Auto) 22.2 [place] % (Auto) 7.7 Eos % (Auto) 1.3 Baso % (Auto) 1.5 H Absolute Neuts (auto) 3.7 Absolute Lymphs (auto) 1.21 Nucleated RBC % 0 Differential Comment SCANNED Diff Path Review May foll PT Cancelled INR Cancelled APTT Cancelled Sodium 134 L Potassium 4.1 Chloride 92 L Carbon Dioxide 20.0 L Anion Gap 22 H BUN 14 Creatinine 1.10 Estim Creat Clear Calc 75.60 Est GFR (MDRD) Af Amer 90 Est GFR (MDRD) Non-Af 75 BUN/Creatinine Ratio 12.7 Glucose 80 Lactic Acid Calcium 8.6 Total Bilirubin 1.30 H Direct Bilirubin 0.19 AST 351 H ALT 157 H Alkaline Phosphatase 70 Troponin I < 0.015 Total Protein 9.1 H Albumin 4.3 Globulin 4.8 H Lipase 167 Ethyl Alcohol 02/22/21 02/22/21 02/22/21 16:25 16:34 17:15 WBC RBC Hgb Hct MCV MCH MCHC RDW Std Deviation RDW Coeff of Isabel Plt Count MPV Immature Gran % (Auto) Neut % (Auto) Lymph % (Auto) [place] % (Auto) Eos % (Auto) Baso % (Auto) Absolute Neuts (auto) Absolute Lymphs (auto) Nucleated RBC % Differential Comment Diff Path Review PT 13.8 INR 1.1 APTT 27.8 Sodium Potassium Chloride Carbon Dioxide Anion Gap BUN Creatinine Estim Creat Clear Calc Est GFR (MDRD) Af Amer Est GFR (MDRD) Non-Af BUN/Creatinine Ratio Glucose Lactic Acid 3.4 H* Calcium Total Bilirubin Direct Bilirubin AST ALT Alkaline Phosphatase Troponin I Total Protein Albumin Globulin Lipase Ethyl Alcohol 175.0 Radiography Diagnostic Testing: Radiology Impression Brain CT 02/22/21 16:15 IMPRESSION: No acute intracranial or calvarial abnormality. No major interval change. Electronically Signed: Luis Alfredo Keane DO at 17:33 EDT Tel [phone], Service support , Chest X-Ray 02/22/21 16:48 IMPRESSION: Question COPD without acute cardiopulmonary disease or interval change. Electronically Signed: Luis Alfredo Keane DO at 17:12 EDT Tel [phone], Service support , EKG Initial EKG: Attestation: I personally reviewed and interpreted this EKG as follows: Comments: EKG demonstrates a sinus tachycardia at a rate of 108. No concerning features of ACS or ectopy. Discharge Plan Dx/Rx/DC Orders Clinical Impression: Thrombocytopenia, Alcohol abuse, Dehydration, Elevated lactic acid level Disposition Disposition: [facility]
[2021-02-22 16:23] VITALS: BP 133/107; PULSE 110; RESP 12; O2SAT 98
[2021-02-22] MEDS: Ondansetron 4 MG/2 ML Vial IV ×3 (16:42→23:54)
[2021-02-22] MEDS: LORazepam 2 MG/ML Syringe 1 MG IV (16:42)
[2021-02-22] MEDS: 0.9% Normal Saline 1,000 ML 1000 ML IV (16:42)
--- NOTE | 2021-02-22 16:48 | RAD_ITS ---
STUDY: X-RAY CHEST REASON FOR EXAM: Male, 50 years old. Cough. TECHNIQUE: Single AP portable view of the chest. COMPARISON: 12/24/2020 FINDINGS: The lungs are hyperexpanded. There is no focal mass or infiltrate. There is no demonstrated pleural abnormality. Normal size heart. Normal mediastinum and melisa. Normal visualized pulmonary arteries. Normal visualized aortic arch and descending thoracic aorta. Normal visualized thoracic spine. Normal visualized ribs, clavicles, and shoulders. There is no demonstrated abnormality of the visualized soft tissue structures of the upper abdomen. RAD/Chest 1 View (Portable) IMPRESSION: Question COPD without acute cardiopulmonary disease or interval change. Electronically Signed: Luis Alfredo Keane DO at 17:12 EDT Tel [phone], Service support ,
[2021-02-22 16:49] LABS: Absolute Lymphocyte Count 1.21 X10^3/uL (0.83-4.51); Absolute Neutrophil Count 3.7 X10^3/uL (2.0-7.7); Basophil# 0.08 X10^3/uL; Basophil% 1.5 % (0-1); Eosinophil# 0.07 X10^3/uL; Eosinophils% 1.3 % (0-5); Hematocrit 38.9 % (40-54); Hemoglobin 13.2 g/dL (13.0-16.5); Lymphocyte # 1.21 X10^3/ul (0.83-4.51); Lymphocyte % 22.2 % (19-41); Mean Corp Hgb Conc 33.9 g/dL (32-36); Mean Corpuscular Hgb 32.9 pg (27.0-32.0); Mean Platelet Vol. 9.3 fl (6.2-12.0); Monocyte# 0.42 X10^3/uL; Monocyte% 7.7 % (0-10); NRBC Flagged by Analyzer 0 % (0-5); Neutrophil # 3.66 X10^3/uL (2.7-7.7); Neutrophil % 66.9 % (47-70); POSITIVE COUNT YES; RBC Distribution Width CV 15.3 % (11.6-14.6); RBC Distribution Width SD 55.6 fl (35.1-43.9); Red Blood Count 4.01 M/mm3 (4.6-6.2); White Blood Count 5.5 K/mm3 (4.4-11.0)
[2021-02-22 16:50] LABS: Differential Indicated SCAN CRITERIA MET; Platelet Count 47 K/mm3 (150-450)
[2021-02-22 17:13] LABS: AST(SGOT) 351 U/L (15-37); Alanine Aminotransfer ALT/SGPT 157 U/L (16-61); Albumin, Serum 4.3 g/dL (3.2-5.0); Alkaline Phosphatase 70 U/L (45-117); Anion Gap 22 (5-15); BUN 14 mg/dL (7-18); BUN/Creat Ratio 12.7 RATIO (10-20); Bilirubin, Direct 0.19 mg/dL (0.00-0.30); Calcium,Total 8.6 mg/dL (8.5-10.1); Chloride 92 mmol/L (98-107); EST Glomerular Filtration Rate 75 mL/min (>60); Est Glom Filt Rate - Afr Amer 90 mL/min (>60); Globulin 4.8 g/dL (2.2-4.2); Glucose 80 mg/dL (74-106); Lipase 167 U/L (73-393); Potassium 4.1 mmol/L (3.5-5.1); Protein, Total 9.1 g/dL (6.4-8.2); Sodium Level 134 mmol/L (136-145)
[2021-02-22] MEDS: Folic Acid 1 MG Tablet PO (17:15)
[2021-02-22] MEDS: Thiamine Hydrochloride 100 MG Tablet PO (17:15)
[2021-02-22 17:23] LABS: Lactic Acid 3.4 mmol/L (0.4-1.9)
[2021-02-22 17:25] LABS: Differential Comment SCANNED
[2021-02-22 17:44] LABS: International Normalized Ratio 1.1; Partial Thromboplast Time 27.8 Seconds (24.1-36.2); Prothrombin Time (Protime)PT. 13.8 SECONDS (11.7-14.9)
[2021-02-22] MEDS: 0.9% Normal Saline 1,000 ML 150 ML IV (18:31)
[2021-02-22 18:35] VITALS: BP 139/96; PULSE 115; RESP 17; O2SAT 97
[2021-02-22] MEDS: 0.9% Normal Saline 1,000 ML 999 ML IV (19:29)
[2021-02-22 19:30] VITALS: BP 122/88; PULSE 97; RESP 12; O2SAT 99
[2021-02-22 20:40] LABS: Reflex Lactate? Y
[2021-02-22 21:11] LABS: Bacteria 0 SEEN /hpf (None Seen); Mucous, Urine 0 SEEN /hpf (<or=2+); Red Blood Cells-Urine 0 SEEN /hpf (0-5); Squamous Epithelial Cells - UA 0 SEEN /hpf (0-5); White Blood Cells 0 SEEN /hpf (0-5)
[2021-02-22 21:12] LABS: Color, Urine Yellow (Yellow); Glucose, Dipstick Normal (Normal); Leukocyte Esterase-Dipstick Negative /ul (Negative); Nitrite-Dipstick Negative (Negative); Occult Blood-Urine 10 /ul (Negative); Protein-Dipstick 100 mg/dl (Negative); Specific Gravity, Urine 1.025 (1.002-1.030); Urine Bilirubin Dipstick Negative (Negative); Urine Clarity Clear (Clear); Urine Urobilinogen Normal (Normal)
[2021-02-22 21:16] LABS: Ketone-Dipstick 150 mg/dl (Negative)
[2021-02-22 21:25] LABS: Amphetamine Urine VISTA NEGATIVE (<1000 ng/mL); Barbiturate Urine VISTA NEGATIVE (< 200 ng/mL); Benzodiazepine Urine VISTA NEGATIVE (< 200 ng/mL); Cocaine Urine VISTA NEGATIVE (< 300 ng/mL); Ecstacy Urine VISTA NEGATIVE (< 500 ng/mL); Methadone Urine VISTA NEGATIVE (< 300 ng/mL); PCP Urine VISTA NEGATIVE (< 25 ng/mL); THC Urine VISTA NEGATIVE (< 50 ng/mL); Vista UDS pH Range 5
--- NOTE | 2021-02-22 21:52 | CM.ED ---
SOCIAL WORK Call to [facility] Treatment Navigator, Jean Paul to update on admission to [facility]. 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
[2021-02-22 22:13] VITALS: BP 122/88; PULSE 97; RESP 12; TEMP 36.6; O2SAT 99
[2021-02-22 22:16] LABS: Lactic Acid 1.7 mmol/L (0.4-1.9)
--- NOTE | 2021-02-22 22:19 | PCM.HP.STD ---
HPI - General General Date of Admission: 02/22/21 HPI Narrative MERYL PANDYA, is a 50 M who presents to the emergency room requesting alcohol detoxification. Patient has a long history of alcohol abuse with an average of 1 L of vodka per day for many years. He last underwent alcohol detoxification a few months ago and subsequently failed but is now requesting another opportunity. Last alcohol intake was earlier this morning and he started to feel shaky and nauseated. He admits to high levels of anxiety as well and presented to the emergency room dehydrated. He will be admitted to the hospital for alcohol detoxification and placed on the [facility] protocol. [facility] Medical History (Updated 02/22/21 @ 21:[address] Ifeanyi Best, ) Alcohol abuse Alcohol abuse Depression Hx of seizure disorder Hypertension Sleep apnea Smoker TBI (traumatic brain injury) Home Medications nicotine 21 mg TD DAILY 11/03/20 [History Last Taken 12/17/20] potassium chloride 20 meq PO DAILY #10 tab 12/27/20 [Rx Last Taken Unknown] hydroxyzine pamoate 25 mg capsule 25 - 50 mg PO Q6H PRN PRN #20 cap 12/29/20 [Rx Last Taken Unknown] phenobarbital 32.4 mg tablet 32.4 mg PO TID #10 tab 12/29/20 [Rx Last Taken Unknown] trazodone 100 mg tablet 100 mg PO QHS PRN #15 tab 12/29/20 [Rx Last Taken Unknown] Allergy/AdvReac Type Severity Reaction Status Date / Time diphenhydramine HCl AdvReac Swelling Verified 02/22/21 16:04 [From Benadryl] mushroom AdvReac Vomiting Verified 02/22/21 16:04 Social History (Updated 02/22/21 @ 16:[address] Ifeanyi Best DO) Smoking Status: Current every day smoker details: 1 gallon of vodka per day substance use type: does not use ROS Constitutional Constitutional: Reports malaise Eyes Eyes: Denies blurry vision ENT HEENT: Denies abnormal hearing Cardiovascular Cardiovascular: Denies chest pain Respiratory/Chest Respiratory/Chest: Denies cough Gastrointestinal Gastrointestinal: Reports nausea; Denies vomiting Genitourinary Genitourinary: Denies dysuria Musculoskeletal Musculoskeletal: Denies back pain Neurologic Neurologic: Denies abnormal speech Psychiatric Psychiatric: Reports anxiety Vital Signs Vital Signs Vital Signs: 02/22/21 16:04 02/22/21 16:23 02/22/21 18:35 Temperature 97.8 F Temperature Source Temporal Pulse Rate 143 H 110 H 115 H Respiratory Rate 20 H 12 17 Blood Pressure 144/95 H 133/107 H 139/96 H Blood Pressure Mean 111 115 110 Pulse Ox 99 98 97 Oxygen Delivery Method Room Air Room Air Room Air 02/22/21 19:30 02/22/21 22:13 Temperature 97.8 F Temperature Source Temporal Pulse Rate 97 97 Respiratory Rate 12 12 Blood Pressure 122/88 H 122/88 H Blood Pressure Mean 99 99 Pulse Ox 99 99 Oxygen Delivery Method Room Air Room Air Physical Exam Const oriented x3 HEENT normocephalic and head/scalp atraumatic Mouth: dry mucous membranes Eyes PERRL Neck supple Lymph Lymphatic: no lymphadenopathy noted Resp normal respiratory effort, normal air movement and clear to auscultation bilaterally Auscultation: Negative for rhonchi or wheezes Cardio regular rate, regular rhythm, S1 normal heart sound and S2 normal heart sound GI normal to inspection, nondistended, normoactive bowel sounds, non-tender and non-distended Extremity no clubbing, cyanosis or edema Skin General Skin Exam: no breakdown Lesions: no lesions Neuro CN's II-XII intact bilaterally Psych thought process normal and affect normal Appearance: appropriate Lab / Micro Data Result Diagrams: 02/22/21 16:25 02/22/21 16:25 Labs: Laboratory Results - last 24 hr 02/22/21 02/22/21 02/22/21 16:25 16:25 16:25 WBC 5.5 RBC 4.01 L Hgb 13.2 Hct 38.9 L MCV 97.0 H MCH 32.9 H MCHC 33.9 RDW Std Deviation 55.6 H RDW Coeff of Isabel 15.3 H Plt Count 47 L* MPV 9.3 Immature Gran % (Auto) 0.400 Neut % (Auto) 66.9 Lymph % (Auto) 22.2 [place] % (Auto) 7.7 Eos % (Auto) 1.3 Baso % (Auto) 1.5 H Absolute Neuts (auto) 3.7 Absolute Lymphs (auto) 1.21 Nucleated RBC % 0 Differential Comment SCANNED Diff Path Review May foll PT Cancelled INR Cancelled APTT Cancelled Sodium 134 L Potassium 4.1 Chloride 92 L Carbon Dioxide 20.0 L Anion Gap 22 H BUN 14 Creatinine 1.10 Estim Creat Clear Calc 75.60 Est GFR (MDRD) Af Amer 90 Est GFR (MDRD) Non-Af 75 BUN/Creatinine Ratio 12.7 Glucose 80 Lactic Acid Calcium 8.6 Total Bilirubin 1.30 H Direct Bilirubin 0.19 AST 351 H ALT 157 H Alkaline Phosphatase 70 Troponin I < 0.015 Total Protein 9.1 H Albumin 4.3 Globulin 4.8 H Lipase 167 Urine Color Urine Clarity Urine pH Ur Specific [place] Urine Protein Urine Glucose (UA) Urine Ketones Urine Occult Blood Urine Nitrite Urine Bilirubin Urine Urobilinogen Ur Leukocyte Esterase Urine RBC Urine WBC Ur Squamous Epith Cells Urine Bacteria Urine Mucus Urine Opiates Screen Urine Methadone Screen Ur Barbiturates Screen Ur Phencyclidine Scrn Ur Amphetamines Screen U Methamphetamin-MDMA U Benzodiazepines Scrn Urine Cocaine Screen U Cannabinoids Screen Ur Drug Screen Comment Ethyl Alcohol 02/22/21 02/22/21 02/22/21 16:25 16:34 17:15 WBC RBC Hgb Hct MCV MCH MCHC RDW Std Deviation RDW Coeff of Isabel Plt Count MPV Immature Gran % (Auto) Neut % (Auto) Lymph % (Auto) [place] % (Auto) Eos % (Auto) Baso % (Auto) Absolute Neuts (auto) Absolute Lymphs (auto) Nucleated RBC % Differential Comment Diff Path Review PT 13.8 INR 1.1 APTT 27.8 Sodium Potassium Chloride Carbon Dioxide Anion Gap BUN Creatinine Estim Creat Clear Calc Est GFR (MDRD) Af Amer Est GFR (MDRD) Non-Af BUN/Creatinine Ratio Glucose Lactic Acid 3.4 H* Calcium Total Bilirubin Direct Bilirubin AST ALT Alkaline Phosphatase Troponin I Total Protein Albumin Globulin Lipase Urine Color Urine Clarity Urine pH Ur Specific [place] Urine Protein Urine Glucose (UA) Urine Ketones Urine Occult Blood Urine Nitrite Urine Bilirubin Urine Urobilinogen Ur Leukocyte Esterase Urine RBC Urine WBC Ur Squamous Epith Cells Urine Bacteria Urine Mucus Urine Opiates Screen Urine Methadone Screen Ur Barbiturates Screen Ur Phencyclidine Scrn Ur Amphetamines Screen U Methamphetamin-MDMA U Benzodiazepines Scrn Urine Cocaine Screen U Cannabinoids Screen Ur Drug Screen Comment Ethyl Alcohol 175.0 02/22/21 02/22/21 02/22/21 21:06 21:06 21:41 WBC RBC Hgb Hct MCV MCH MCHC RDW Std Deviation RDW Coeff of Isabel Plt Count MPV Immature Gran % (Auto) Neut % (Auto) Lymph % (Auto) [place] % (Auto) Eos % (Auto) Baso % (Auto) Absolute Neuts (auto) Absolute Lymphs (auto) Nucleated RBC % Differential Comment Diff Path Review PT INR APTT Sodium Potassium Chloride Carbon Dioxide Anion Gap BUN Creatinine Estim Creat Clear Calc Est GFR (MDRD) Af Amer Est GFR (MDRD) Non-Af BUN/Creatinine Ratio Glucose Lactic Acid 1.7 Calcium Total Bilirubin Direct Bilirubin AST ALT Alkaline Phosphatase Troponin I Total Protein Albumin Globulin Lipase Urine Color Yellow Urine Clarity Clear Urine pH 6.0 Ur Specific [place] 1.025 Urine Protein 100 H Urine Glucose (UA) Normal Urine Ketones 150 A* Urine Occult Blood 10 H Urine Nitrite Negative Urine Bilirubin Negative Urine Urobilinogen Normal Ur Leukocyte Esterase Negative Urine RBC 0 SEEN Urine WBC 0 SEEN Ur Squamous Epith Cells 0 SEEN Urine Bacteria 0 SEEN Urine Mucus 0 SEEN Urine Opiates Screen NEGATIVE Urine Methadone Screen NEGATIVE Ur Barbiturates Screen NEGATIVE Ur Phencyclidine Scrn NEGATIVE Ur Amphetamines Screen NEGATIVE U Methamphetamin-MDMA NEGATIVE U Benzodiazepines Scrn NEGATIVE Urine Cocaine Screen NEGATIVE U Cannabinoids Screen NEGATIVE Ur Drug Screen Comment Ethyl Alcohol Micro: Microbiology 02/22/21 16:34 SARS-CoV-2 Antigen (Rapid) - Final Mucosa - Nasopharyngeal Radiology Impression Brain CT 02/22/21 16:15 IMPRESSION: No acute intracranial or calvarial abnormality. No major interval change. Electronically Signed: Luis Alfredo Keane DO at 17:33 EDT Tel [phone], Service support , Chest X-Ray 02/22/21 16:48 IMPRESSION: Question COPD without acute cardiopulmonary disease or interval change. Electronically Signed: Luis Alfredo Keane DO at 17:12 EDT Tel [phone], Service support , Assessment & Plan Assessment/Plan (1) Tobacco dependency: (2) Alcohol withdrawal: (3) Hypokalemia: (4) Dehydration: (5) Alcohol abuse: PLAN: Plan 1. Alcohol abuse/withdrawal?admit patient to general medical floor placed on [facility] protocol, consult block and case maker to assist with discharge planning. 2. Dehydration continue IV fluids through the night for gentle hydration 3. DVT prophylaxis?SCDs due to recent kidney injury Visit Charges Inpatient E&M: 40435 Init Hosp L2
[2021-02-22 22:26] VITALS: BMI 19.3
[2021-02-22 22:30] VITALS: BP 145/81; PULSE 101; RESP 18; TEMP 36.7; O2SAT 96
[2021-02-22] MEDS: 0.9% Normal Saline 1,000 ML 75 ML IV (23:32)
[2021-02-22] MEDS: traZODone 100 MG Tablet PO (23:54)
[2021-02-22] MEDS: LORazepam 1 MG Tablet 2 MG PO (23:54)
[2021-02-23] MEDS: Ondansetron 8 MG Tablet PO ×3 (02:18→21:51)
[2021-02-23] MEDS: hydrOXYzine PAM 25 MG Capsule 50 MG PO (02:18)
[2021-02-23] MEDS: 0.9% Normal Saline 1,000 ML 75 ML IV (04:22)
[2021-02-23] MEDS: LORazepam 1 MG Tablet 2 MG PO ×5 (04:22→18:54)
[2021-02-23 04:24] VITALS: BP 154/94; PULSE 125; RESP 18; TEMP 36.9; O2SAT 100
[2021-02-23] MEDS: proCHLORPERazine 10 MG/2 ML Vial IV (04:59)
[2021-02-23] MEDS: guaiFENesin 10 ML UDC (200MG/10ML) PO ×2 (04:59→20:26)
[2021-02-23] MEDS: 0.9% Saline Lock 10 ML Syringe IV ×3 (05:00→21:22)
[2021-02-23] MEDS: Potassium Chloride Oral Tablet 20 MEQ PO (07:12)
[2021-02-23] MEDS: Folic Acid 1 MG Tablet PO (07:12)
[2021-02-23] MEDS: Thiamine Hydrochloride 100 MG Tablet PO (07:12)
[2021-02-23 07:25] LABS: Anion Gap 27 (5-15); BUN 13 mg/dL (7-18); BUN/Creat Ratio 13.1 RATIO (10-20); Calcium,Total 8.2 mg/dL (8.5-10.1); Chloride 93 mmol/L (98-107); Creatinine, Serum 0.99 mg/dL (0.70-1.30); EST Glomerular Filtration Rate 84 mL/min (>60); Est Glom Filt Rate - Afr Amer 102 mL/min (>60); Estimated Creatinine Clearance 84.56 ml/min; Glucose 88 mg/dL (74-106); Potassium 3.4 mmol/L (3.5-5.1); Sodium Level 138 mmol/L (136-145)
[2021-02-23 07:36] VITALS: O2SAT 95
[2021-02-23 09:24] VITALS: BP 120/69; PULSE 107; RESP 20; TEMP 38.3; O2SAT 99
--- NOTE | 2021-02-23 09:32 | NURSING ---
Talked with Cherrie from [facility] and Willow Leung about Dr. Francisco concern with patient frequent readmissions for detox. Willow states patient will not qualify for ECF skilled- would have to be out of pocket. Cherrie states patient is a challenge because he resists a lot of help offered. Does not want residential. Is very isolated at his home. Cherrie will see the patient and see what he wants to do.
--- NOTE | 2021-02-23 09:37 | ADDICTION ---
This report writer spoke with PT's hospitalist, Dr. Francisco, who informed this report writer that client is not appropriate for the [facility] program and will not need seen as physician's plan is to have PT placed in a long-term care facility due to mental and physical barriers.
[2021-02-23 10:14] LABS: Pathologist Review Reviewed
--- NOTE | 2021-02-23 11:27 | CASEMGMT ---
Social Work Note Pt is not appropriate for [facility], recommendation is SNF placement. SW in to speak with pt. SW introduced self and role at [facility]. Pt is alert and orientated x3. Pt states that he see's the Counselor Boyd at [facility] but states he has only seen him once. Pt states it was a couple months ago that he saw Boyd. Pt states his plan is to follow up with Boyd once again at discharge. SW asked pt about going to SNF for short term rehabiliation as that is what is being recommended. Pt agreeable to SNF. Patient was provided a list of SNF providers including quality and resource use data and consistent with the patient?s preferred geographic region, medical needs, and insurance network. Pt's preferred provider is [facility]. SW informed pt that [facility] now [facility]. Pt agreeable to [facility]. SW explained referral process and that pt will need pre-cert. SW to fax referral to [facility]. Willow Leung SUBCONTRACT MANAGER, AVIONICS INTEGRATION ENGINEER
--- NOTE | 2021-02-23 12:01 | CASEMGMT ---
Addendum entered by Roseanna Stein 02/23/21 14:23: PT evaluation faxed to [facility]. [facility] Addendum entered by Roseanna Stein 02/23/21 13:19: SW spoke w/Laura from [facility], they can take pt, will start precert tomorrow, want to make sure pt is not going through active withdrawal prior to starting precert. SW let pt know, he is in agreement w/going to [facility]. SW will continue to follow. [facility] Original Note: Referral faxed to [facility], PT is still pending. SW spoke w/pt, he states would like to go for short term, with plans to go home once he is stronger. SW let him know referral was sent. SW called [facility], message left. [facility]
[2021-02-23 12:13] VITALS: BP 118/72; PULSE 123; RESP 18; TEMP 37.8; O2SAT 97
[2021-02-23] MEDS: 0.9% Normal Saline 1,000 ML 150 ML IV ×2 (13:24→20:25)
--- NOTE | 2021-02-23 14:31 | PCM.NTREPORT ---
Nutrition Therapy Report - History Current diet / nutrition support order:: regular - Anthropometric Measurements Height:: 6 ft 2 in Weight:: 68.492 kg Body Mass Index (BMI):: 19.3 - Relevant Labs Relevant Labs:: RBC 4.01 M/mm3 (4.6-6.2) L 02/22/21 16:25 Hct 38.9 % (40-54) L 02/22/21 16:25 MCV 97.0 fL (80-94) H 02/22/21 16:25 MCH 32.9 pg (27.0-32.0) H 02/22/21 16:25 RDW Std Deviation 55.6 fl (35.1-43.9) H 02/22/21 16:25 RDW Coeff of Isabel 15.3 % (11.6-14.6) H 02/22/21 16:25 Plt Count 47 K/mm3 (150-450) L* 02/22/21 16:25 Baso % (Auto) 1.5 % (0-1) H 02/22/21 16:25 Sodium 134 mmol/L (136-145) L 02/22/21 16:25 Potassium 3.4 mmol/L (3.5-5.1) L 02/23/21 05:50 Chloride 93 mmol/L (98-107) L 02/23/21 05:50 Carbon Dioxide 18.0 mmol/L (21.0-32.0) L 02/23/21 05:50 Anion Gap 27 (5-15) H 02/23/21 05:50 Lactic Acid 3.4 mmol/L (0.4-1.9) H* 02/22/21 16:34 Calcium 8.2 mg/dL (8.5-10.1) L 02/23/21 05:50 Total Bilirubin 1.30 mg/dL (0.20-1.00) H 02/22/21 16:25 AST 351 U/L (15-37) H 02/22/21 16:25 ALT 157 U/L (16-61) H 02/22/21 16:25 Total Protein 9.1 g/dL (6.4-8.2) H 02/22/21 16:25 Globulin 4.8 g/dL (2.2-4.2) H 02/22/21 16:25 - Assessment Food / Nutrition-Related History:: Pt reports poor appetite/intake over past 4 days. Thinks he usually weighs 220#. CBW 151#. Per EMR, wt was 166# on 11/18/20 and CBW 151#-15#/9.0% wt loss x 3 months is significant for malnutrition. Pt reports drinking ~1L vodka/day. - Nutrition Diagnosis Problem / Etiology / Signs & Symptoms (PES):: moderate malnutrition related to inadequate protein intake w/ excessive alcohol consumption as evidenced by reported intake of 1L vodka/day, unintentional wt loss of 15#/9.0% x 3 months, moderate muscle wasting/fat loss in upper extremities, orbital/temporal region. Evidence of Malnutrition Exists:: Yes Moderate Protein Calorie Malnutrition:: Social & Environmental circumstances - Nutrition Intervention Nutrition Prescription:: [id number] calories/day (1.3xRMR). 68-78 g protein/day (1.0 g/kg). 2054mL fluid/day (30mL/kg) - Food / Nutrient Delivery Interventions Summary of nutrition intervention:: Pt states he is agreeable to Ensure. Will add w/ medpass. No questions for RDN at this time. Nutrition support ordered as / adjusted to:: continue regular diet; will add 120mL ensure enlive 4x/day
[2021-02-23 14:39] VITALS: BMI 19.3
--- NOTE | 2021-02-23 14:59 | PN.HOSP_ITS ---
Subjective Subjective Patient was seen and examined today, he is unkempt and does not carry on a conversation with this examiner. I talked by phone with the patient's nearest relative-his mother and father, they confirm that the patient has been out of work for approximately 4 to 5 years and they sent him on a on a chronic basis. I let them know that he was in the hospital for detox services, I also told them that I was not sure how much he drank at home. Patient has no evidence of alcohol withdrawal at this time and is on Ativan as needed currently. I feel the patient needs at least temporary placement in a fdc [facility] because he is unable to take care of himself at this time, we will put in a request for placement-hopefully the patient will go along with this. Objective Data Objective Data Vital Signs: Vital Signs Temp Pulse Resp BP Pulse Ox 100.0 F H 123 H 18 118/72 97 02/23/21 12:13 02/23/21 12:13 02/23/21 12:13 02/23/21 12:13 02/23/21 12:13 Oxygen Delivery Method Room Air Weight: 68.492 kg Body Mass Index (BMI) 19.3 Intake & Output: Intake and Output for Last 24 Hours 02/21/21 02/22/21 02/23/21 23:59 23:59 23:59 Intake Total 2957.5 / 2957.5 1905.0 / 1905.0 Output Total 500 / 500 Balance 2957.5 / 2957.5 1405.0 / 1405.0 Lab / Micro Data Result Diagrams: 02/22/21 16:25 02/23/21 05:50 Labs: Laboratory Results - last 24 hr 02/22/21 02/22/21 02/22/21 16:25 16:25 16:25 WBC 5.5 RBC 4.01 L Hgb 13.2 Hct 38.9 L MCV 97.0 H MCH 32.9 H MCHC 33.9 RDW Std Deviation 55.6 H RDW Coeff of Isabel 15.3 H Plt Count 47 L* MPV 9.3 Immature Gran % (Auto) 0.400 Neut % (Auto) 66.9 Lymph % (Auto) 22.2 [place] % (Auto) 7.7 Eos % (Auto) 1.3 Baso % (Auto) 1.5 H Absolute Neuts (auto) 3.7 Absolute Lymphs (auto) 1.21 Nucleated RBC % 0 Differential Comment SCANNED Diff Path Review Reviewed PT Cancelled INR Cancelled APTT Cancelled Sodium 134 L Potassium 4.1 Chloride 92 L Carbon Dioxide 20.0 L Anion Gap 22 H BUN 14 Creatinine 1.10 Estim Creat Clear Calc 75.60 Est GFR (MDRD) Af Amer 90 Est GFR (MDRD) Non-Af 75 BUN/Creatinine Ratio 12.7 Glucose 80 Lactic Acid Calcium 8.6 Total Bilirubin 1.30 H Direct Bilirubin 0.19 AST 351 H ALT 157 H Alkaline Phosphatase 70 Troponin I < 0.015 Total Protein 9.1 H Albumin 4.3 Globulin 4.8 H Lipase 167 Urine Color Urine Clarity Urine pH Ur Specific [place] Urine Protein Urine Glucose (UA) Urine Ketones Urine Occult Blood Urine Nitrite Urine Bilirubin Urine Urobilinogen Ur Leukocyte Esterase Urine RBC Urine WBC Ur Squamous Epith Cells Urine Bacteria Urine Mucus Urine Opiates Screen Urine Methadone Screen Ur Barbiturates Screen Ur Phencyclidine Scrn Ur Amphetamines Screen U Methamphetamin-MDMA U Benzodiazepines Scrn Urine Cocaine Screen U Cannabinoids Screen Ur Drug Screen Comment Ethyl Alcohol 02/22/21 02/22/21 02/22/21 16:25 16:34 17:15 WBC RBC Hgb Hct MCV MCH MCHC RDW Std Deviation RDW Coeff of Isabel Plt Count MPV Immature Gran % (Auto) Neut % (Auto) Lymph % (Auto) [place] % (Auto) Eos % (Auto) Baso % (Auto) Absolute Neuts (auto) Absolute Lymphs (auto) Nucleated RBC % Differential Comment Diff Path Review PT 13.8 INR 1.1 APTT 27.8 Sodium Potassium Chloride Carbon Dioxide Anion Gap BUN Creatinine Estim Creat Clear Calc Est GFR (MDRD) Af Amer Est GFR (MDRD) Non-Af BUN/Creatinine Ratio Glucose Lactic Acid 3.4 H* Calcium Total Bilirubin Direct Bilirubin AST ALT Alkaline Phosphatase Troponin I Total Protein Albumin Globulin Lipase Urine Color Urine Clarity Urine pH Ur Specific [place] Urine Protein Urine Glucose (UA) Urine Ketones Urine Occult Blood Urine Nitrite Urine Bilirubin Urine Urobilinogen Ur Leukocyte Esterase Urine RBC Urine WBC Ur Squamous Epith Cells Urine Bacteria Urine Mucus Urine Opiates Screen Urine Methadone Screen Ur Barbiturates Screen Ur Phencyclidine Scrn Ur Amphetamines Screen U Methamphetamin-MDMA U Benzodiazepines Scrn Urine Cocaine Screen U Cannabinoids Screen Ur Drug Screen Comment Ethyl Alcohol 175.0 02/22/21 02/22/21 02/22/21 21:06 21:06 21:41 WBC RBC Hgb Hct MCV MCH MCHC RDW Std Deviation RDW Coeff of Isabel Plt Count MPV Immature Gran % (Auto) Neut % (Auto) Lymph % (Auto) [place] % (Auto) Eos % (Auto) Baso % (Auto) Absolute Neuts (auto) Absolute Lymphs (auto) Nucleated RBC % Differential Comment Diff Path Review PT INR APTT Sodium Potassium Chloride Carbon Dioxide Anion Gap BUN Creatinine Estim Creat Clear Calc Est GFR (MDRD) Af Amer Est GFR (MDRD) Non-Af BUN/Creatinine Ratio Glucose Lactic Acid 1.7 Calcium Total Bilirubin Direct Bilirubin AST ALT Alkaline Phosphatase Troponin I Total Protein Albumin Globulin Lipase Urine Color Yellow Urine Clarity Clear Urine pH 6.0 Ur Specific [place] 1.025 Urine Protein 100 H Urine Glucose (UA) Normal Urine Ketones 150 A* Urine Occult Blood 10 H Urine Nitrite Negative Urine Bilirubin Negative Urine Urobilinogen Normal Ur Leukocyte Esterase Negative Urine RBC 0 SEEN Urine WBC 0 SEEN Ur Squamous Epith Cells 0 SEEN Urine Bacteria 0 SEEN Urine Mucus 0 SEEN Urine Opiates Screen NEGATIVE Urine Methadone Screen NEGATIVE Ur Barbiturates Screen NEGATIVE Ur Phencyclidine Scrn NEGATIVE Ur Amphetamines Screen NEGATIVE U Methamphetamin-MDMA NEGATIVE U Benzodiazepines Scrn NEGATIVE Urine Cocaine Screen NEGATIVE U Cannabinoids Screen NEGATIVE Ur Drug Screen Comment Ethyl Alcohol 02/23/21 05:50 WBC RBC Hgb Hct MCV MCH MCHC RDW Std Deviation RDW Coeff of Isabel Plt Count MPV Immature Gran % (Auto) Neut % (Auto) Lymph % (Auto) [place] % (Auto) Eos % (Auto) Baso % (Auto) Absolute Neuts (auto) Absolute Lymphs (auto) Nucleated RBC % Differential Comment Diff Path Review PT INR APTT Sodium 138 Potassium 3.4 L Chloride 93 L Carbon Dioxide 18.0 L Anion Gap 27 H BUN 13 Creatinine 0.99 Estim Creat Clear Calc 84.56 Est GFR (MDRD) Af Amer 102 Est GFR (MDRD) Non-Af 84 BUN/Creatinine Ratio 13.1 Glucose 88 Lactic Acid Calcium 8.2 L Total Bilirubin Direct Bilirubin AST ALT Alkaline Phosphatase Troponin I Total Protein Albumin Globulin Lipase Urine Color Urine Clarity Urine pH Ur Specific [place] Urine Protein Urine Glucose (UA) Urine Ketones Urine Occult Blood Urine Nitrite Urine Bilirubin Urine Urobilinogen Ur Leukocyte Esterase Urine RBC Urine WBC Ur Squamous Epith Cells Urine Bacteria Urine Mucus Urine Opiates Screen Urine Methadone Screen Ur Barbiturates Screen Ur Phencyclidine Scrn Ur Amphetamines Screen U Methamphetamin-MDMA U Benzodiazepines Scrn Urine Cocaine Screen U Cannabinoids Screen Ur Drug Screen Comment Ethyl Alcohol Micro: Microbiology 02/22/21 16:34 Mucosa - Nasopharyngeal SARS-CoV-2 Antigen (Rapid) - Final Radiography Diagnostic Testing: Radiology Impression Brain CT 02/22/21 16:15 IMPRESSION: No acute intracranial or calvarial abnormality. No major interval change. Electronically Signed: Luis Alfredo Keane DO at 17:33 EDT Tel [phone], Service support , Chest X-Ray 02/22/21 16:48 IMPRESSION: Question COPD without acute cardiopulmonary disease or interval change. Electronically Signed: Luis Alfredo Keane DO at 17:12 EDT Tel [phone], Service support , Physical Exam Const alert and no apparent distress Constitutional Narrative: Patient's appearance is unkempt, he is unable to carry on a conversation with this examiner Nutritional Appearance: cachectic HEENT head/scalp atraumatic Head and Scalp: normocephalic Eyes PERRL, EOMs intact bilaterally and conjunctivae normal Neck no lymphadenopathy, supple and no JVD Resp normal respiratory effort, no retractions, no use of accessory muscles and clear to auscultation bilaterally Cardio regular rate, regular rhythm, S1 normal heart sound, S2 normal heart sound, no gallops and no clicks GI normal to inspection, nondistended, normoactive bowel sounds, soft to palpation and non-tender Extremity no clubbing, cyanosis or edema Skin no rashes or lesions noted, no wounds and skin turgor normal Neuro Sensorium / Orientation: awake, alert, oriented to person and oriented to place Psych Psych Narrative: Patient has a flat affect, he does not spontaneously respond by carrying on conversations Assessment & Plan Assessment/Plan (1) Alcohol withdrawal: PLAN: 1. Acute alcohol withdrawal-patient is minimally symptomatic at thi s time, will continue on Ativan per CIWA score #2 encephalopathy secondary to chronic alcohol abuse-patient is unable to care for himself at home, he will need temporary placement in a fdc facility #3 elevated liver enzymes secondary alcohol abuse #4 hypokalemia-mild, lab will be rechecked tomorrow #5 thrombocytopenia-etiology unclear could be due to alcoholic liver disease, patient has had a history of low platelet counts starting earlier this year. Monitor CBC #6 severe protein caloric malnutrition-nutritional services will see the patient Visit Charges Inpatient E&M: 64806 Subs Hosp L2
[2021-02-23 15:31] VITALS: BP 129/82; PULSE 109; RESP 18; TEMP 37.3; O2SAT 99
[2021-02-23 15:55] LABS: Vitamin B12 872 pg/mL (211-911)
[2021-02-23] MEDS: proCHLORPERazine 10 MG/2 ML Vial IM (20:25)
[2021-02-23 21:47] VITALS: BP 120/84; PULSE 84; RESP 18; TEMP 37.7; O2SAT 99
[2021-02-23] MEDS: Phenobarbital 32.4 MG Tablet 64.8 MG PO ×2 (21:51→23:51)
[2021-02-23] MEDS: Acetaminophen 325 MG Tablet 650 MG PO (23:50)
[2021-02-23] MEDS: traZODone 100 MG Tablet PO (23:51)
[2021-02-24] VITALS (8 sets, daily range): BP systolic 119–140; BP diastolic 74–98; PULSE 73–90; RESP 16–20; TEMP 36.5–37.1; O2SAT 96–100
[2021-02-24] MEDS: Dicyclomine 10 MG Capsule 20 MG PO ×3 (01:22→16:45)
[2021-02-24] MEDS: 0.9% Normal Saline 1,000 ML 150 ML IV ×4 (01:22→18:55)
[2021-02-24] MEDS: hydrOXYzine PAM 25 MG Capsule 50 MG PO ×5 (01:22→18:39)
[2021-02-24] MEDS: proCHLORPERazine 10 MG/2 ML Vial IM ×3 (03:05→18:40)
[2021-02-24] MEDS: Gabapentin 300 MG Capsule PO ×2 (03:05→12:24)
[2021-02-24] MEDS: guaiFENesin 10 ML UDC (200MG/10ML) PO (03:05)
[2021-02-24] MEDS: Phenobarbital 32.4 MG Tablet 64.8 MG PO ×5 (05:15→19:42)
[2021-02-24 05:57] LABS: Absolute Neutrophil Count 4.3 X10^3/uL (2.0-7.7); Basophil# 0.03 X10^3/uL; Basophil% 0.4 % (0-1); Eosinophil# 0.16 X10^3/uL; Eosinophils% 2.4 % (0-5); Hematocrit 31.1 % (40-54); Hemoglobin 10.6 g/dL (13.0-16.5); Lymphocyte % 25.3 % (19-41); Mean Corp Hgb Conc 34.1 g/dL (32-36); Mean Corpuscular Hgb 32.7 pg (27.0-32.0); Mean Platelet Vol. 11.2 fl (6.2-12.0); Monocyte% 7.4 % (0-10); NRBC Flagged by Analyzer 0 % (0-5); Neutrophil % 64.1 % (47-70); POSITIVE COUNT YES; RBC Distribution Width CV 14.9 % (11.6-14.6); RBC Distribution Width SD 53.1 fl (35.1-43.9); Red Blood Count 3.24 M/mm3 (4.6-6.2); White Blood Count 6.7 K/mm3 (4.4-11.0)
[2021-02-24 05:59] LABS: Differential Indicated SCAN CRITERIA MET; Platelet Count 23 K/mm3 (150-450)
[2021-02-24] MEDS: Acetaminophen 325 MG Tablet 650 MG PO (06:07)
[2021-02-24] MEDS: Ondansetron 8 MG Tablet PO ×2 (06:07→14:21)
--- OUTSIDE RECORDS SUMMARY | 2021-02-24 06:08 | XMS RPT_ITS ---
Patient Summarization (C-CDA 2.1 CCD) Created on:February 24, 2021 Patient:MR. MERYL OGDEN Sex:Male :1970 External Reference #:[id number] Author Organization Sample organization Procedures Date Procedure Procedure Detail Performing Clin ician Start: 06-17-2020 Antibody screen Comment on above: Performed By: #### ALCO3 ### # [place] [address] Results Test Name Value Interpretation Reference Range Facility CASE MANAGEM on 06-09 CASE MANAGEM HNO ID: [id number] [facility] Author: Maggy south (Sw) Service: ? Author Type: Software Developer Manager Type: Care Mgt Progress Note Filed: 06/22/2020 2:46 PM Note Text: CARE MANAGEMENT PROGRESS NOTE SERVICE DATE: 06/22/2020 SERVICE TIME: 2:36 PM LOS: 5 days Needs Prior to Discharge: Other: See Comment;Discharge Transportation(Accepting [facility] Agency) Referrals for [facility] PT/OT sent to [facility], Yenny Lu[facility],and [facility], [facility], [facility], [facility]), [facility], [facility], [facility] [place] all u nable to accept pt. Escalated this to CM commercial loan manager for assistance. Additional referrals sent to [facility], [facility], [facility], [facility], [facility], [facility], and [facility]. Awaiting r dre. SIGNATURE: WILLIAM Quiroga PATIENT NAME: Meryl santana DATE: June 22, 2020 TIME: 2:36 PM PAGER/CONTACT #: [phone] CASE MANAGEM HNO ID: [id number] [facility] Author: Maggy south (Sw) Service: ? Author Type: Software Developer Manager Type: Care Mgt Progress Note Filed: 06/23/2020 11:34 AM Note Text: CARE MANAGEMENT DISCHARGE NOTE SERVICE DATE: 06/22/2020 SERVICE TIME: 3:50 PM LOS: 5 days Admission Date: 06/16/2020 DISCHARGE ARRANGEMENT (list agency and phone number) Discharge Arrangement: Home;Home [facility]sp Care: PT;OT Provider Name: [facility] CAREGIVER ASSESSMENT: Caregiver is ready, willing and able to meet the patie nt's needs as recommended by the inter-professional team:: Yes Does the patient have an acute stroke diagnosis, or castro s the patient had a stroke during this admission?: No Patient's transition needs and plan for meeting these needs: Home with [facility] HANDOFF COMMUNICATION: Handoff to: Primary Care Physician Primary Care Physician Name/Phone: Dr. Glover TRANSPORTATION ARRANGEMENTS: Transportation Arrangements: Taxi Cab Voucher ADDITIONAL CONTACT RESOURCES: Maury Solares Pt to go home with [facility] via cab ride at 5PM. SOC in 24 -48hrs. SIGNATURE: WILLIAM Quiroga PATIENT NAME: Meryl santana DATE: June 22, 2020 TIME: 3:50 PM PAGER/CONTACT #: [phone] CASE MANAGEM HNO ID: [id number] [facility] Author: Maggy south (Sw) Service: ? Author Type: Software Developer Manager Type: Care Mgt Progress Note Filed: 06/23/2020 11:57 AM Note Text: CARE MANAGEMENT PROGRESS NOTE SERVICE DATE: 06/23/2020 SERVICE TIME: 11:55 AM LOS: 5 days [facility] follow-up Per [facility], pt needs to schedule an appointment with his PCP. Called pt and LM explaining to make an appointment JOSUÉ with his PCP as well as provided [facility] phone number and informed him they are trying to get in touch with him for SOC. SIGNATURE: WILLIAM Quiroga PATIENT NAME: Meryl Lizamasamantha santana DATE: June 23, 2020 TIME: 11:55 AM PAGER/CONTACT #: [phone] NURSING PROG on 06-09 NURSING HNO ID: [id number] [facility] Author: Mercy StephensonRn) MANDY Saucedo General Service: Nursing Medical Author Type: Registered Nurse Center Type: Nursing Progress Note Filed: 06/22/2020 11:54 AM Note Text: Nursing Progress Note Patient Name: Meryl Ogden Patient Location: [place] [address]/[id number]- Patient anxious to be discharged home, BP 149/106. Rosario se Drain WORKERS' COMPENSATION CLAIMS EXAMINER notified, no new orders received. Will continue to mon. This note was completed by: Mercy Saucedo RN PLAN OF CARE on 06-09 PLAN OF CARE HNO ID: [id number] Normal [facility] Author: Laura Tyler (Button Facing Machine Operator) Center Service: Pharmacy Author Type: Pharmacist Type: Plan of Care Filed: 06/22/2020 4:21 PM Note Text: DISCHARGE MEDICATION REVIEW BY PHARMACY Patient Name: Meryl Ogden Account #: Data Unavailabl e Admission Date: 06/16/2020 Date of Contact: June 22, 2020 Time of Contact: 4 :21 PM Medication list was reviewed by a Pharmacist for drug interactions or drug related problems:Yes Below is a summary of pharmacist recommendations discu ssed with LIP: No Recommendations at this time from Discharge Medicat ion List. Per neuro, patient is to continue Keppra for a total o f 7 days. Laura Tyler, Button Facing Machine Operator June 22, 2020 4:21 PM Medication List START taking these medications levETIRAcetam 1,000 mg tablet Commonly known as: KEPPRA Take 1 tablet by mouth twice daily for 4 doses. Bogdan augustin Where to Get Your Medications These medications were sent to [facility] [address] [place] [address] Hours: Monday-Monday, 8am-6:30pm ? levETIRAcetam 1,000 mg tablet You can get these medications from any pharmacy Bring a paper prescription for each of these medicatio ns ? Bogdan Sanchez CASE MANAGEM on 06-09 CASE MANAGEM HNO ID: [id number] [facility] Author: Deborah Nash (Sw) Service: ? Author Type: Software Developer Manager Type: Care Mgt Progress Note Filed: 06/21/2020 12:41 PM Note Text: CARE MANAGEMENT PROGRESS NOTE SERVICE DATE: 06/21/2020 SERVICE TIME: 12:39 PM LOS: 4 days Progress note Referral sent [facility], [facility], [facility], [facility],and [facility] for PT/OT. Awaiting acceptance. SIGNATURE: PAMELA Shepherd PATIENT NAME: Meryl santana DATE: June 21, 2020 TIME: 12:39 PM PAGER/CONTACT #: [phone] CASE MANAGEM HNO ID: [id number] [facility] Author: Rita StephensonRn) MANDY Baeza Service: Care Management Author Type: Registered Nurse Type: Care Mgt Progress Note Filed: 06/21/2020 4:04 PM Note Text: CARE MANAGEMENT PROGRESS NOTE SERVICE DATE: 06/21/2020 SERVICE TIME: 1603 LOS: 4 days Met with patient for discharge planning. Patient agree able to home PT OT. Lives alone. Provided home care agency choice list, patient agreeab le to first accepting agency. Multiple referrals sent. SIGNATURE: Rita Baeza RN PATIENT NAME: Meryl bain DATE: June 21, 2020 TIME: 4:03 PM PAGER/CONTACT #: [phone] NURSING PROG on 06-09 NURSING HNO ID: [id number] [facility] Author: Jessica Shay RN General Service: Nursing Medical Author Type: Registered Nurse Center Type: Nursing Progress Note Filed: 06/21/2020 8:36 AM Note Text: Nursing Progress Note Patient Name: Meryl Ogden [id number] Wang of patient's elevated blood pressur e This note was completed by: Jessica Shay RN PROGRESS on 06-21-20 20 PROGRESS HNO ID: [id number] Normal [facility] Author: Destinee Sampson) Gama south Service: General Surgery Author Type: Nurse Practitioner Type: Progress Notes Filed: 06/21/2020 10:31 AM Note Text: Trauma Surgery Progress Note SERVICE DATE: 06/21/2020 Trauma Service Pager: For questions or concerns Mon-Fri 6a-5p please page [phone]. After 5pm and on Weekends and Holidays, please page [phone] if in ICU or [phone] if on RNF. SUBJECTIVE: NAEON. Patient reports feeling well today and hopeful for discharge home. Tolerating diet. Reports mild headache relieved by tyl enol. Denies dizziness, chest pain, SOB, n/v. OBJECTIVE: Vitals: Temp (24hrs), Av ?C (98.6 ?F), Min:36.8 ?C (98.2 ? F), Max:37.2 ?C (99 ?F) BP 143/100 Pulse 89 Temp 37 ?C (98.6 ?F) (Oral) Resp 18 Ht 190.5 cm (6' 3) Wt 68.5 kg (150 lb 14.5 oz) SpO2 96% BMI 18.86 kg/m? O2 Therapy: Room Air IANDO: Date 06/20/20699 - 06/21/2065806/21/20 07 - 0659 Shift 8378-6375 1426-4171 9362-8328 24 Hour Total 0700 -1459 9617-6164 4263-6415 24 Hour Total INTAKE PO 240 240 PO 240 240 IV 50 50 Volume (mL) (magnesium sulfate in sterile water 2 g in sterile water 50 ml) 50 50 Shift Total 290 290 OUTPUT Urine 1300 1466 432 8300 200 200 Void (ml) 1300 1438 387 6300 200 200 Shift Total 1300 9886 978 2003 200 200 Weight (kg) 68.5 68.5 68.4 68.4 68.4 68.4 68.4 68.4 MEDICATIONS Current Facility-Administered Medications Medication Dose Route Frequency - propranolol 10 mg tab(s) (INDERAL) 10 mg ORAL ONCE - LORazepam 2 mg (ATIVAN) 2 mg ORAL q 1 H PRN Or - LORazepam 2 mg injection (ATIVAN) 2 mg INTRAVENOUS q 1 H PRN - LORazepam 4 mg (ATIVAN) 4 mg ORAL q 1 H PRN Or - LORazepam 4 mg injection (ATIVAN) 4 mg INTRAVENOUS q 1 H PRN - nicotine 7 mg/24 hr 1 Patch (NICODERM) 1 Patch TRANS DERMAL DAILY And - nicotine -- REMOVE patch OTHER DAILY And - nicotine - verify patch OTHER q 8 H - levETIRAcetam 1,000 mg tab(s) (KEPPRA) 1,000 mg ORAL BID - thiamine 100 mg tab(s) (VITAMIN B1) 100 mg ORAL/FEED ING TUBE TID - folic acid 1 mg tab(s) 1 mg ORAL DAILY - therapeutic multivitamin-minerals tablet (THERA-M PL ) 1 tablet ORAL DAILY - acetaminophen 975 mg tab(s) (TYLENOL) 975 mg ORAL q 6 H - oxyCODONE IR 2.5-5 mg tab(s) (ROXICODONE) 2.5-5 mg O RAL q 6 H PRN - ondansetron 4 mg tab(s) (ZOFRAN) 4 mg ORAL q 6 H PRN Or - ondansetron (PF) 4 mg injection (ZOFRAN) 4 mg INTRAV ENOUS q 6 H PRN Labs: Recent Labs 06/20/20 0235 06/19/20 0335 NA 135* 137 K 3.9 see below CHLOR 98 101 CO2 26 25 BUN 12 8* CREAT 0.54* 0.52* GLUC 112* 106* ANION 11 11 CA 9.7 9.2 MG -- 1.7 WBC 4.78 5.07 HB 12.7* 12.6* HCT 36.3* 36.2* PLT 70* 56* PHYSICAL EXAM: Genl: Appears age appropriate. No acute distress. Rest ing comfortably. Head/Face: Normocephalic. Atraumatic. Eyes: EOMI. Sclera not icteric, bilaterally injected Neck: No mid-line masses. Supple Resp: RA, no cough or wheeze CVS: RRR as above; 2+ pulses at RA GI: Abdomen is soft, non-tender, not distended. MSK: Extremities without clubbing, cyanosis, edema. No rmal ROM x 4. Skin: Warm and dry. Not jaundiced. Neuro: AANDOx3. Strength and sensation normal. LEE. GC S15. Psych: Normal mood. Normal affect. Appropriate insight into current situation. 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 [...] Possible discharge home this afternoon if cleared b y PT/OT PPX: 1. DVT: SCDs, mobilize 2. Ulcer: n/a 3. Vit D level if > 65 yo: n/a Consulted Services: 1. Nsx Dispo Plannin. PT/OT recs AR. Case management following. Planning for SNF at present given refusal and patient ambivalence Incidentals: 1. None Follow Up Needs: 1. NSGY - Dr. Lazo in 4 wks Staff Trauma Surgeon: Dr. Wang SIGNATURE: Destinee Malloy APRN.CNP PATIENT NAME: Meryl Ogden DATE: June 21, 2020 TIME: 10:27 AM Pager: see below Trauma Service Pager: For questions or concerns Mon-Fri 6a-5p please page [phone]. After 5pm and on Weekends and Holidays, please page [phone] if in ICU or [phone] if on RNF. THERAPY NT on 2019 THERAPY NT HNO ID: [id number] [facility] Author: Kentrell (Pt) [facility] Service: Physical Therapy Author Type: Physical Therapist Type: Therapy (PT/OT/Speech/Resp) Filed: 06/21/2020 9:07 AM Note Text: Physical Therapy Treatment SERVICE DATE: 06/21/2020 SERVICE TIME: 0835 to 0900 ROOM: [place] [address] Recommended Discharge Disposition: Home PT Recommended Discharge Disposition Comments: Patient wi th much improved functional mobility this date with improved safety jah reness/cognition. PT recommends home health serviecs to assist with impr oving activity tolerance upon return home. Justification For Post Acute Needs: Anticipate patient will tolerate 3 hours of daily therapy at the time of admission to pos t-acute setting;Living the community premorbidly;Good premorbi d functional status;Medically complex;Motivated PT Recommendations to Nursing: Transfer to/from chair; OOB for Meals;With assist of 2 people Device: Wheeled Walker PT 6 Clicks Score: 22 Precautions/Activity Restrictions: Fall Risk;Bed/Chair Alarm;Lines/Tubes/Drains ASSESSMENT : Patient with good progress towards and has met bed mob ility,transfer, and ambulation goals this date. Goals updated as needed to further reflect progress. Patient at this time is functioning at a lev el of supervision/ stand by assist for bed mobility/transfers and contact guard assist for ambulation up to 100'x1 without assistive device. Stacy ent displays much improved cognitive status and is aANDO x 3 this date. PT is recommending home health therapy upon return home at this time to [facility] for improved activity tolerance and safe return to community ambula tion. Patient Disposition at Start of Session: Supine in Bed ;Call Esquivel in Reach;Bed Alarm Patient Disposition at End of Session: Supine in Bed;C all Esquivel in Reach;Bed Alarm Tolerated Full Session (cognition) Physical Therapy Problem List: Education Deficit;Safet y Deficits;Decreased Strength;Functional Mobility Impairment;Balance Impair ed Patient /Caregiver Goals: Go Home Goals for Plan of Care: Able to perform HEP with: Independent Transfer supine to/from sit with: Independent Transfer sit to/from stand with: Independent Ambulate with: Independent Distance: 150'x1 Device: No Device Progress Toward Goals: Progressing as expected Rehab Potential: Good PLAN: Treatment Frequency (times per week): 5(2-4) Current admission Treatment Interventions: Education;Strengthening;Funct ional Mobility Training;Balance Training;Neuromuscular Re-education Plan of Care developed with: Patient TREATMENT INTERVENTIONS: Therapy Diagnosis: Reduced mobility-other;Muscle Weakn ess (generalized);Unsteadiness on feet Interventions Provided: Gait Training (85323);Therapeu tic Exercise (18242) Therapeutic Exercise (63659) Treatment Minutes: 10 1 unit Skilled Intervention(s): Patient completed seated open kinetic chain active range of motion including marching, long arc qu ads, hamstring curls, heel raises, and hip abduction 2x15 without add ed resistance to increase strength required for safe performance of all transfers/ambulation. Patient with increased fatigue r eported with exercise and requires rest breaks. Occasional Verbal c ues provided for proper performance. Gait Training (46016) Treatment Minutes: 15 1 unit Skilled Intervention(s): Instruction in sit to stand t echnique with proper hand placement and body positioning at edge of bed/mejia ir, Instruction in stand to sit technique with LE's touching chair/bed an d reaching back for surface, Instruction in sequencing, gait pattern, Inst ruction in correction of gait deviations up to 100'x1 without ass istive device at contact guard assist level. PT provided Verbal cues to increase step length and to maintain upright posture with good carry over. No loss of balance noted. Instruction in stair negotiation up and down 4 stairs with bilateral upper extremities on 2 arm rails at contact guard assist lev el. Patient with no instability or loss of balance noted during stair nego tiation. Total Timed Code Treatment Minutes: 25 Total Treatment Time (minutes): 25 SUBJECTIVE: Current Hospital Course: Chart reviewed and no signifi cant medical updates relevant to therapy were noted Reason for Physical Therapy Consult : fall, SDH Relevant Past Medical History: alcohol abuse, fall x 3 years ago with head bleed Patient Report: I would prefer to just go home if pos sible Home Environment Patient Lives With: Self/Alone Assistance Available: None Entry To Home: Stairs Number Of Stairs Into Home: 12 Number Of Stairs To Bed/Bath: 0 Tub/Shower Type: walk in shower no seat Laundry: in apartment, patient usually completes Equipment Owned: Cane;Grab Bars-Shower;Wheeled Walker( Does not use any assistive device now ) Prior Functional Level: Within Functional Limits Prior Functional Level Comments: Ambulates without ass ist, does his own ADLs and IADLs. uses public transportation OBJECTIVE: CURRENT FUNCTIONAL STATUS: Current Functional Mobility Assist Level Additional In formation Rolling Supervision Supine to Sit Supervision Sit to Supine Supervision Scooting Sit to Stand Stand By Assistance Stand to Sit Stand By Assistance Bed to Chair Toilet/Commode Gait Contact Guard Assistance Gait Device: None Gait Distance (feet): 100'x1 Stairs Contact Guard Assistance Stairs Device: Rail Number of Stairs: 4 Curb Step Car Transfer General Deviations/Observations: Lateral sway increase d;Tika decreased;Wide base of support;Step length decreased Balance: Static Sitting;Static Standing Static Sitting Balance: Good(close SBA d/t cognition a nd impulsive) Patient able to maintain balance without handhold supp ort, limited postural sway(close SBA d/t cognition and impulsive) Static Standing Balance: Fair(min A) Patient able to m aintain balance with handhold support, may require occasional minimal assistance(min A) Activity Tolerance: Sitting Activity;Standing Activity Sitting Activity: static sit EOB Sitting Activity Tolerance (in minutes): 4 Standing Activity: static stand with min A x 2 trials Standing Activity Tolerance (in minutes): 1(each trial ) -M: 7: Walk 25 feet or more Please see discipline specific clinical documentation flowsheet for complete details for this therapy evaluation/treatment . SIGNATURE: Kentrell Bennett PT PATIENT NAME: Meryl santana DATE: June 21, 2020 TIME: 9:03 AM THERAPY NT HNO ID: [id number] [facility] Author: Yuly StephensonOt/L) [facility] Service: ? Author Type: Occupational Therapist Type: Therapy (PT/OT/Speech/Resp) Filed: 06/21/2020 9:58 AM Note Text: Occupational Therapy Treatment SERVICE DATE: 06/21/2020 SERVICE TIME: 924 to 939 ROOM: [id number] Recommended Discharge Disposition: Home OT Recommended Discharge Disposition Comments: Patient wi th significant improve in functional mobility and ADL performance sin ce OT evaluation. Patient is able to complete self-care and functional m obility with supervision-contact guard assist. Recommend home with increased support from family and friends with home OT progressing to ou tpatient OT as appropriate to address remaining barriers and concerns . Justification For Post Acute Needs: Anticipate patient will tolerate 3 hours of daily therapy at the time of admission to pos t-acute setting;Living the community premorbidly;Motivated;Gurpreet ling to participate;Good premorbid functional status;Anticipat ed community discharge Anticipated Discharge Needs: Physical Assist at Home;S upervision at Home Physical Assist at Home for: Cleaning;Laundry;Finances ;Meals;Medication Management;Shopping;Transportation;Stairs;Safety Supervision at Home due to: Decreased safety awareness ;Impaired cognition Recommended Discharge Equipment: Shower Chair;Wheeled Walker OT Recommendations to Nursing: To Bathroom for ADL?s / and or Toileting;OOB for meals;Transfer to Chair;With assist of 1 person Equipment: (gait belt ) OT 6 Clicks Score: 20 Precautions/Activity Restrictions: Fall Risk;Bed/Chair Alarm ASSESSMENT: Patient progressing well towards OT goals with signifi cant improvement in cognition, functional balance and mobility allowing fo r improved ADL and functional transfer performance. Patient is now able t o complete ADL tasks with supervision to stand by assist, functional transf ers and mobility with contact guard assist. Orientation and cognition s ignificantly improved, still some concerns with safety awareness, i nsight into deficits and judgement but overall improved - completed home sa fety and judgement activity demonstrating min-mod deficits (for example, did not say he would unplug the toaster before trying to remove toast; woul d try to reason with burglar if they entered the home). Patient reports he has family and friends that can stay with him and assist with IADLs a s needed - strongly against placement at acute rehab or half-way fa cility at discharge. Recommend home with increased support and home OT when medically stable. OT will continue to follow. Patient Disposition at Start of Session: Supine in Bed ;Call Esquivel in Reach;Bed Alarm Patient Disposition at End of Session: Supine in Bed;C all Esquivel in Reach;Bed Alarm Tolerated Full Session Occupational Therapy Problem List: Cognitive Deficit;E ducation Deficit;Safety Deficits;Impaired Self Care;Decreased A ctivity Tolerance;Decreased Strength;Functional Mobility Impai rment;Balance Impaired Patient /Caregiver Goals: Care For Self;Go [...] Goal 1: Patient will complete ADL rotuine a nd functional mobility with 10% or less verbal cues for safety aware ness and judgement. Additional Goal 2: Patient will complete functional mo bility during ADL routine using appropriate assistive device with superv ision. Additional Goal 3: Patient will answer 5/5 home safety questions accurately. Increased Awareness of Cognitive Impairments as Relate d to ADL's/IADL's: Demonstrated;Verbalized Progress Toward Goals: Progressing as expected Rehab Potential: Good PLAN: Treatment Frequency (times per week): 5(2-5) Current admission Treatment Interventions: Education;Self Care / Home Ma nagement;Energy Conservation Training;Strengthening;Functional Mobilit y Training;Balance Training;Cognitive Training Plan of Care developed with: Patient TREATMENT INTERVENTIONS: Therapy Diagnosis: Reduced mobility-other;Decreased ac tivities of daily living (ADL);Muscle Weakness (generalized);Unsteadines s on feet;General symptoms and signs-other;Signs and Symptoms Involving Cognitive Functions and Awareness Interventions Provided: Self Usp Management (975 35);Cognitive Training (98280 and 31409) 2019 New Self Usp Management (10949) Treatment Minutes: 7 Skilled Intervention(s): Instructed in hand placement and sequencing of supine to sit and sit to stand transfers at edge of bed. Provided verbal and tactile cues for safety during fun ctional mobility to and from bathroom and during toilet transfer. Provided opportunity to participate in lower body dres sing task seated edge of bed with verbal cues for sequencing; patient a ble to complete with stand by assist, demonstrating good dynamic sitting ba venancio. Discussed new discharge recommendations in detail with patient, need for physical assist and increased support at home. Patient receptive, verbalized understanding. Cognitive Training Per First 15 Minutes (63648) 2020: 8 1 unit Skilled Intervention(s): Facilitated participation in home safety and judgement activity. Patient given 15 questions with focus on home safety, judgemen t and emergency preparedness. Patient completed with score of 11/15 - required cues for more thorough answers and for abstract reasoning. (Sta julieth he would try to reason with burglars if they broke into his home I.e. why do you want all of my rare books?; stated he would only well puller head whe n car was smoking, did not state he would exit; would not unplug toaster prior to removing toast). Reviewed answers with patient; receptive, verb alized understanding. Total Timed Code Treatment Minutes: 15 Total Treatment Time (minutes): 15 SUBJECTIVE: Current Hospital Course: Chart reviewed; [facility] protocol during admission. Reason for Occupational Therapy Consult: Progressive m obility protocol Relevant Past Medical History: alcohol abuse, fall x 3 years ago with head bleed Patient Report: I am feeling much much better. Agree able to participate. No pain or dizziness. Pain: 0/10 Home Environment Patient Lives With: Self/Alone Assistance Available: None Entry To Home: Stairs Number Of Stairs Into Home: 12 Number Of Stairs To Bed/Bath: 0 Tub/Shower Type: walk in shower no seat Laundry: in apartment, patient usually completes Equipment Owned: Cane;Grab Bars-Shower;Wheeled Walker( Does not use any assistive device now ) Prior Functional Level: Within Functional Limits Prior Functional Level Comments: Ambulates without ass ist, does his own ADLs and IADLs. uses public transportation OBJECTIVE: Cognition/Communication Deficits Orientation Deficits: Not oriented to Place([facility]; didnt know city (he is from [place])) Responsiveness: Alert;Awake Follows Commands: 2-step Commands;3-step Commands Cueing to Follow Commands: Minimum Attention Deficits: Divided Memory Deficits: Short Term Executive Function Deficits: Judgement;Insight to Defi cits;Problem Solving;Safety Awareness Judgement Deficit: Minimal impairment Insight [...] (none) Functional Mobility Comments: Somewhat unsteady on fee t; decreased proprioception and weakness right LE noted during mobi lity. Balance: Static Sitting;Dynamic Sitting;Static Standin g;Dynamic Standing Static Sitting Balance: Normal Patient able to maintai n steady balance without handhold support Dynamic Sitting Balance: Good Patient accepts moderate challenge, able to maintain balance while picking up object off floor Static Standing Balance: Fair Patient able to maintain balance with handhold support, may require occasional minimal inga tance Dynamic Standing Balance: Fair Patient accepts minimal challenge, able to maintain balance while turning head/trunk Activity Tolerance: Standing Activity;Sitting Activity Sitting Activity: ADL and assessment at edge of bed Sitting Activity Tolerance (in minutes): 10 Standing Activity: Functional mobility to and from [facility] Standing Activity Tolerance (in minutes): 2 Please see discipline specific clinical documentation flowsheet for complete details for this therapy evaluation/treatment . Oriented to call ball use, need for assist when up out of bed. Bed kaylee garsia. SIGNATURE: Yuly Piedra OTR/L PATIENT NAME: Meryl Ogden DATE: June 21, 2020 TIME: 9:47 AM Basic Metabolic Panel on 06-20-2020 Anion gap [Moles/Vol] 11 mmol/L Normal 9-18 [facility] Comment on above: Performed By: #### CMP #### [facility] [address] [place] [address] Calcium [Mass/Vol] 9.7 mg/dL Normal 8.5-10.2 [facility] Comment on above: Performed By: #### CMP #### [facility] [address] [place] [address] Chloride [Moles/Vol] 98 mmol/L Normal 97-105 [facility] Comment on above: Performed By: #### CMP #### [facility] [address] [place] [address] CO2 Blood 26 mmol/L Normal 22-30 [facility] Comment on above: Performed By: #### CMP #### [facility] [address] [place] [address] Creatinine [Mass/Vol] 0.54 mg/dL Low 0.73-1.22 [facility] Comment on above: Performed By: #### CMP #### [facility] [address] [place] [address] Glucose [Mass/Vol] 112 mg/dL High 74-99 [facility] Comment on above: Result Comment: The [place] Diabetes Association (ADA) provides guidance for cutoff [...] Standards of Medical Care in Diabetes 2016; [place] Diabetes Association. Diabetes Care. 2016;39(Suppl 1). Performed By: #### CMP #### [facility] [address] [place] [address] Potassium [Moles/Vol] 3.9 mmol/L Normal 3.7-5.1 [facility] Comment on above: Performed By: #### CMP #### [place] [address] Sodium [Moles/Vol] 135 mmol/L Low 136-144 [facility] Comment on above: Performed By: #### CMP #### [facility] [address] [place], [place] [address] Urea nitrogen [Mass/Vol] 12 mg/dL Normal 9-24 [facility] Comment on above: Performed By: #### CMP #### [address] [address] Hemogram on 06-20-20 20 Erythrocyte distribution width 12.7 % Normal 11.6-14.4 [facility] (RBC) [Ratio] Comment on above: Performed By: #### PT #### [facility] [address] [place], [place] [address] Hematocrit (Bld) [Volume fraction] 36.3 % Low 40.1-5 1.0 [facility] Comment on above: Performed By: #### PT #### [facility] [address] [place], [place] [address] Hemoglobin (Bld) [Mass/Vol] 12.7 g/dL Low 13.7-17.5 [facility] Comment on above: Performed By: #### PT #### [facility] [address] [place] [address] MCH (RBC) [Entitic mass] 34.0 pg High 25.7-32.2 [facility] Comment on above: Performed By: #### PT #### [facility] [address] [place] [address] MCHC (RBC) [Mass/Vol] 35.0 % Normal 32.3-36.5 [facility] Comment on above: Performed By: #### PT #### [facility] [address] [place] [address] MCV (RBC) [Entitic vol] 97.1 fL High 83.2-95.6 [facility] Comment on above: Performed By: #### PT #### [facility] [address] [place] [address] Platelet mean volume (Bld) 11.2 fL Normal 8.7-12.0 [facility] [Entitic vol] Comment on above: Performed By: #### PT #### [facility] [address] [place] [address] Platelets (Bld) [#/Vol] 70 thou/cmm Low 141-365 [facility] Comment on above: Result Comment: Geni dotson agrees with platelet count Performed By: #### PT #### [facility] [address] [place] [address] RBC (Bld) [#/Vol] 3.74 mil/cmm Low 4.63-6.08 [facility] Comment on above: Performed By: #### PT #### [facility] [address] [place] [address] RDW SD 44.6 fl Normal 36.1-45.8 [facility] Comment on above: Performed By: #### PT #### [facility] [address] [place] [address] WBC (Bld) [#/Vol] 4.78 thou/cmm Normal 4.23-9.07 [facility] Comment on above: Performed By: #### PT #### [facility] [address] [place] [address] MDRD GFR on 06-20-20 GFR/1.73 sq M predicted mL/min/{1.73_m2} Normal >60mL/min/1.7 3m2 [facility] among non-blacks MDRD System (S/P/Bld) [Vol rate/Area] Comment on above: Result Comment: If the patie nt is , multiply the result by 1.210. Performed By: #### GFR #### [facility] [address] [place], [place] [address] PROGRESS on 06-20-20 PROGRESS HNO ID: [id number] [facility] [place] Author: Shelbi Downey [facility] Service: General Surgery Med ical Author Type: Resident Center Type: Progress Notes Filed: 06/20/2020 11:39 AM Note Text: Attestation signed by Vidhya Wang at 06/21/2020 10:13 AM I personally saw and examined the patient on 06/20/20. I reviewed the resident's note. I agree with the resident's assessmen t and plan unless otherwise noted. Trauma Surgery Progress Note SERVICE DATE: 06/20/2020 Trauma Service Pager: For questions or concerns Mon-Fri 6a-5p please page [phone]. After 5pm and on Weekends and Holidays, please page [phone] if in ICU or [phone] if on RNF. SUBJECTIVE: ERICH, patient articulate this am and reports that he would be ok with going to a facility after discharge as long as he can grab his computer on the way. Denies significant pain, no nausea. OBJECTIVE: Vitals: Temp (24hrs), Av.8 ?C (98.3 ?F), Min:36.2 ?C (97.2 ?F), Max:37.5 ?C (99.5 ?F) BP 154/105 Pulse 92 Temp 37.5 ?C (99.5 ?F) (Oral) Resp 16 Ht 190.5 cm (6' 3) Wt 68.5 kg (151 lb 0.2 oz) SpO2 9 6% BMI 18.88 kg/m? O2 Therapy: Room Air IANDO: Date 06/19/20699 - 06/20/20 0659 06/20/20699 - 0659 Shift 2866-7529 8567-3595 9330-7098 24 Hour Total 00 -1458 4725-8092 7767-6111 24 Hour Total INTAKE PO 240 600 840 240 240 PO 240 600 840 240 240 Shift Total 240 600 840 240 240 OUTPUT Urine 350 403 494 8872 500 500 Void (ml) 350 206 823 4249 500 500 Urine Incontinence/Not Saved 1 x 1 x Shift Total 350 998 395 6345 500 500 Weight (kg) 68.5 68.5 68.5 68.5 68.5 68.5 68.5 68.5 MEDICATIONS Current Facility-Administered Medications Medication Dose Route Frequency - LORazepam 2 mg (ATIVAN) 2 mg ORAL q 1 H PRN Or - LORazepam 2 mg injection (ATIVAN) 2 mg INTRAVENOUS q 1 H PRN - LORazepam 4 mg (ATIVAN) 4 mg ORAL q 1 H PRN Or - LORazepam 4 mg injection (ATIVAN) 4 mg INTRAVENOUS q 1 H PRN - haloperidol lactate 5 mg injection (HALDOL) 5 mg INT RAMUSCULAR q 6 H PRN - nicotine 7 mg/24 hr 1 Patch (NICODERM) 1 Patch TRANS DERMAL DAILY And - nicotine -- REMOVE patch OTHER DAILY And - nicotine - verify patch OTHER q 8 H - levETIRAcetam 1,000 mg tab(s) (KEPPRA) 1,000 mg ORAL BID - thiamine 100 mg tab(s) (VITAMIN B1) 100 mg ORAL/FEED ING TUBE TID - folic acid 1 mg tab(s) 1 mg ORAL DAILY - therapeutic multivitamin-minerals tablet (THERA-M PL ) 1 tablet ORAL DAILY - acetaminophen 975 mg tab(s) (TYLENOL) 975 mg ORAL q 6 H - oxyCODONE IR 2.5-5 mg tab(s) (ROXICODONE) 2.5-5 mg O RAL q 6 H PRN - ondansetron 4 mg tab(s) (ZOFRAN) 4 mg ORAL q 6 H PRN Or - ondansetron (PF) 4 mg injection (ZOFRAN) 4 mg INTRAV ENOUS q 6 H PRN Labs: Recent Labs 06/20/20 0235 06/19/20 0335 NA 135* 137 K 3.9 see below CHLOR 98 101 CO2 26 25 BUN 12 8* CREAT 0.54* 0.52* GLUC 112* 106* ANION 11 11 CA 9.7 9.2 MG -- 1.7 WBC 4.78 5.07 HB 12.7* 12.6* HCT 36.3* 36.2* PLT 70* 56* PHYSICAL EXAM: Genl: Appears age appropriate. No acute distress. Rest ing comfortably. Head/Face: Normocephalic. Atraumatic. Eyes: EOMI. Sclera not icteric, bilaterally injected Neck: No mid-line masses. Supple Resp: RA, no cough or wheeze CVS: RRR as above; 2+ pulses at RA GI: Abdomen is soft, non-tender, not distended. MSK: Extremities without clubbing, cyanosis, edema. No rmal ROM x 4. Skin: Warm and dry. Not jaundiced. Neuro: AANDOx3. Strength and sensation normal. LEE. GC S15. Psych: Normal mood. Normal affect. Appropriate insight into current situation. 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 ? 06/18-06/19 delirium tremens, resolved 06/20 Imaging performed: 1. CT HN 2. CXR PXR Traumatic Injuries: 1. SDH Operations/Procedures: 1. None Care Plan: 1. Was admitted to ICU, transferred to floor for stabl e ICH 06/17 1. Nsx s/o, plan to see in one month 2. keppra 2. Alcohol withdrawal this admission 1. Electrolyte and vitamin replacement 2. High requirements for ativan on CIWA protocol over last few days, improved today 3. Thrombocytopenia improving, to 70 this am 3. Current diet order: DIET REGULAR 4. Pain regimen: Oxy PRN 5. Bowel regimen: No need 6. Labs: Repeat mag supplementation today PPX: 1. DVT: SCDs 2. Ulcer: No need 3. Vit D level if > 65 yo: NA Consulted Services: 1. Nsx Dispo Plannin. PT/OT recs [place]. Case management following. Planning for SNF at present given refusal and patient ambivalence Incidentals: 1. None Follow Up Needs: 1. FU nsx in four weeks (from 06/18) Staff Trauma Surgeon: Dr. Wang SIGNATURE: Shelbi Downey MD PATIENT NAME: Meryl Caban iebe DATE: June 20, 2020 TIME: 11:27 AM Pager: see below Trauma Service Pager: For questions or concerns Mon-Fri 6a-5p please page [phone]. After 5pm and on Weekends and Holidays, please page [phone] if in ICU or [phone] if on RNF. Basic Metabolic Panel on 06-19-2020 Anion gap [Moles/Vol] 11 mmol/L Normal 9-18 [facility] Comment on above: Performed By: #### CMP #### [facility] [address] [place], [place] [address] Calcium [Mass/Vol] 9.2 mg/dL Normal 8.5-10.2 [facility] Comment on above: Performed By: #### CMP #### [facility] [address] [place], [place] [address] Chloride [Moles/Vol] 101 mmol/L Normal 97-105 [facility] Comment on above: Performed By: #### CMP #### [facility] [address] [place], [place] [address] CO2 Blood 25 mmol/L Normal 22-30 [facility] Comment on above: Performed By: #### CMP #### [facility] [address] [place], [place] [address] Creatinine [Mass/Vol] 0.52 mg/dL Low 0.73-1.22 [facility] Comment on above: Performed By: #### CMP #### [facility] [address] [place], [place] [address] Glucose [Mass/Vol] 106 mg/dL High 74-99 [facility] Comment on above: Result Comment: The [place] Diabetes Association (ADA) provides guidance for cutoff [...] Standards of Medical Care in Diabetes 2016; [place] Diabetes Association. Diabetes Care. 2016;39(Suppl 1). Performed By: #### CMP #### [facility] [address] [place] [address] Potassium [Moles/Vol] see below Normal 3.7-5.1 [facility] Comment on above: Result Comment: Unable to as say. Specimen Hemolyzed Performed By: #### CMP #### [facility] [address] [place] [id number] Sodium [Moles/Vol] 137 mmol/L Normal 136-144 [facility] Comment on above: Performed By: #### CMP #### [facility] [address] [place], [place] [address] Urea nitrogen [Mass/Vol] 8 mg/dL Low 9-24 [facility] Comment on above: Performed By: #### CMP #### [facility] [address] [place], [place] [address] CASE MANAGEM on 06-09 CASE MANAGEM HNO ID: [id number] Normal [facility] Author: Maggy (Sw) Isra Ce nter Service: ? Author Type: Software Developer Manager Type: Care Mgt Progress Note Filed: 06/19/2020 9:35 AM Note Text: CARE MANAGEMENT PROGRESS NOTE SERVICE DATE: 06/19/2020 SERVICE TIME: 9:29 AM LOS: 2 days Needs Prior to Discharge: Precertification;Discharge T ransportation Chart reviewed. Pt CIWA score increased overnight and pt now in soft restraints and has received Ativan. Pt attempted to le ave AMA and was experiencing visual hallucinations. [place] [facility] has accepted and will start precert today a nticipating it will be back on Monday or Monday. Plan at this time is [facility] if pt still agreeable once mental status clears and withdrawal symptoms improve. SIGNATURE: WILLIAM Quiroga PATIENT NAME: Meryl santana DATE: June 19, 2020 TIME: 9:29 AM PAGER/CONTACT #: [phone] CASE MANAGEM HNO ID: [id number] [facility] [place] [facility] Author: Maggy Mejia (Sw) nter Service: ? Author Type: Software Developer Manager Type: Care Mgt Progress Note Filed: 06/19/2020 12:28 PM Note Text: CARE MANAGEMENT PROGRESS NOTE SERVICE DATE: 06/19/2020 SERVICE TIME: 12:09 PM LOS: 2 days Needs Prior to Discharge: Accepting Facility;Precertif ication;Discharge Transportation;Bed Availability;To Be Determined Received call from Ingrid at [facility] who reports the medical technologist chief has denied pt's acceptance due to frequent [place] ED visits for alcohol intoxication and falls/head injuries. Per Ingrid, the m edical director does not think he will stay inpatient and/or follow-up or c omply with his care appropriately. Spoke with pt's Mother Maury Ogden [phone] who is pt's NOK. Discussed [place] vs. SNF and pt's ambivalence about placem ent. Sent Maury a choice list for SNF so she can review choices and assi st pt once his mental status improves. Maury reports she was attempting to get in touch wit h pt's disability alterations expert but pt could not remember the name and she has been unsuccessful in cold searching. Plan: Await improvement in mental status for dispo russel nning with pt. Anticipate SNF placement. SIGNATURE: WILLIAM Quiroga PATIENT NAME: Meryl santana DATE: June 19, 2020 TIME: 12:09 PM PAGER/CONTACT #: [phone] Hemogram on 06-19-20 20 Erythrocyte distribution width 13.1 % Normal 11.6-14.4 [facility] (RBC) [Ratio] Comment on above: Performed By: #### CMP #### [facility] [address] [place] [address] Hematocrit (Bld) [Volume fraction] 36.2 % Low 40.1-5 1.0 [facility] Comment on above: Performed By: #### CMP #### [facility] [address] [place] [address] Hemoglobin (Bld) [Mass/Vol] 12.6 g/dL Low 13.7-17.5 [facility] Comment on above: Performed By: #### CMP #### [facility] [address] [place], [place] [address] MCH (RBC) [Entitic mass] 34.1 pg High 25.7-32.2 [facility] Comment on above: Performed By: #### CMP #### [facility] [address] [place], [place] [address] MCHC (RBC) [Mass/Vol] 34.8 % Normal 32.3-36.5 [facility] Comment on above: Performed By: #### CMP #### [facility] [address] [place], [place] [address] MCV (RBC) [Entitic vol] 98.1 fL High 83.2-95.6 [facility] Comment on above: Performed By: #### CMP #### [facility] [address] [place], [place] [address] Platelet mean volume (Bld) 12.0 fL Normal 8.7-12.0 [facility] [Entitic vol] Comment on above: Performed By: #### CMP #### [facility] [address] [place], [place] [address] Platelets (Bld) [#/Vol] 56 thou/cmm Low 141-365 [facility] Comment on above: Result Comment: Smear jovanni melendez tech agrees with platelet count Performed By: #### CMP #### [facility] [address] [place] [address] RBC (Bld) [#/Vol] 3.69 mil/cmm Low 4.63-6.08 [facility] Comment on above: Performed By: #### CMP #### [facility] [address] [place] [address] RDW SD 46.2 fl High 36.1-45.8 [facility] Comment on above: Performed By: #### CMP #### [facility] [address] [place] [address] WBC (Bld) [#/Vol] 5.07 thou/cmm Normal 4.23-9.07 [facility] Comment on above: Performed By: #### CMP #### [facility] [address] [place] [address] Magnesium Blood on 0 06-19-2020 Magnesium [Mass/Vol] 1.7 mg/dL Normal 1.7-2.3 [facility] Comment on above: Performed By: #### CMP #### [facility] [address] [place] [address] NURSING PROG on 06-09 NURSING HNO ID: [id number] [facility] [place] PROG Author: Senait StephensonRn) MANDY Brandon General Service: Nursing Medical Author Type: Registered Nurse Center Type: Nursing Progress Note Filed: 06/19/2020 1:28 AM Note Text: Nursing Progress Note Patient Name: Meryl Ogden [id number] Daily Note: Patient attempting to get out of bed-patient already d ressed in his street clothes, attempting to pull out IV. Patient states he needs to go home to take care of some things. Patient states we are all part of a conspiracy to kill my parents and steal from me. Dr. Bearden paged to come see patient. Patient stating he is signing any medica l papers necessary to refuse further treatment. 222: into see patient. 2224: Dr. Pa in to see patient. Patient continues t o be confused and refusing to get back to bed. Unsteady on feet. Orders received for IV Ativan. Patient helped back to bed with assist x3. Bed alarm in place, side rails x3 for safety. This note was completed by: Senait Brandon, RN 2300: Bottling Machine Operator, Anabelle, up to see patient. Multiple at tempts being made by patient to get OOB despite bed alarm, and siderails x3 . Anabelle helped this RN put patient back to bed. Decision made to give stacy ent a BSCG for patient safety. 2338: BSCG unable to keep patient safely in bed. Patie nt with multiple attempts to get OOB-climbing over siderails, and hallu cinating looking for that gun over there. Unable to redirect patient. Dr. Bearden paged for bilateral soft wrist restraints. 0004: Patient's emergency contact- called to duane mane of restraints. did not answer phone and no voicemail capabilitie s. 0011: Patient's mother, Jacqueline Rodriguez called and informed o f use of restraints. Patient's mother verbalizes appropriate understanding and states to not call patient's EX- as she will not answer the phon e and is not able to make decisions for patient. Patient's mother states e wishes to be primary contact. NURSING HNO ID: [id number] [facility] [place] PROG Author: Senait (Rn) MANDY Brandon General Service: Nursing Medical Author Type: Registered Nurse Center Type: Nursing Progress Note Filed: 06/18/2020 11:57 PM Note Text: Nursing Progress: Topic: RESTRAINT NON-VIOLENT PATIENT NAME: Meryl Ogden PATIENT LOCATION: [place] [address] [address] The patient demonstrates Confusion, Lack of Understand ing/Ability to Comply with Safety Directions, Impulsive Behavior, Ona bility to be Redirected, Inability to Retain Information Regarding Safety Directions, Attempting to Remove Medical Devices Vital to Medical Stability as evidenced by the following behaviors pulling on IV, at tempting to get OOB, non-directable behavior which pose an imminent danger to self or others. The following interventions were attempted but were no t effective in protecting the patient's safety: Alarms, Bed in Low/Lo cked Position, Call Light Within Reach, Pattern Repair Person/Sitter, Diversion Activi ties, Gauze Wrap/Sleeve IV Site, IV/Feeding Bag/Pump Out of Vision , Medications Reviewed, Modify Environment, Modify Equipment, Freque nt Observation, Move Patient Closer to Nurses Station, Pad Tubes/Drains, Pa in/Discomfort Relief, Partial Bedrails Up, Re-Orientation Methods, T oileting Next, a comprehensive assessment was performed and war ranted placing the patient in Soft Bilateral Wrists, the least restrictiv e restraint needed to protect the patient's safety. Ongoing safety assessments and evaluation for earliest removal of restraints will be performed. DATE: June 18, 2020 TIME: 11:56 PM Senait Brandon RN NURSING HNO ID: [id number] [facility] Author: Gracie (Rn) MANDY Dolan General Service: ? Medical Author Type: Registered Nurse Center Type: Nursing Progress Note Filed: 06/19/2020 1:45 PM Note Text: Nursing Progress: Topic: RESTRAINT NON-VIOLENT PATIENT NAME: Meryl Ogden PATIENT LOCATION: [place] [address] [address] The patient demonstrates Confusion, Lack of Understand ing/Ability to Comply with Safety Directions, Impulsive Behavior, Romi bility to be Redirected, Inability to Retain Information Regarding Safety Directions, Attempting to Remove Medical Devices Vital to Medical Stability as evidenced by the following behaviors trying to get out of the bed and leave the room, picking at IV and patient cannot retai n information or follow directions which pose an imminent danger to manpreet f or others. The following interventions were attempted but were no t effective in protecting the patient's safety: Alarms, Bed in Low/Lo cked Position, Call Light Within Reach, Pattern Repair Person/Sitter, Diversion Activi ties, Gauze Wrap/Sleeve IV Site, IV/Feeding Bag/Pump Out of Vision , Medications Reviewed, Modify Environment, Modify Equipment, Freque nt Observation, Move Patient Closer to Nurses Station, Pad Tubes/Drains, Pa in/Discomfort Relief, Partial Bedrails Up, Re-Orientation Methods, T oileting Next, a comprehensive assessment was performed and war ranted placing the patient in Soft Bilateral Wrists, the least restrictiv e restraint needed to protect the patient's safety. Ongoing safety assessments and evaluation for earliest removal of restraints will be performed. DATE: June 19, 2020 TIME: 9:00 AM Gracie Dolan RN NURSING HNO ID: [id number] [facility] Author: Gracie (Rn) MANDY Dolan General Service: ? Medical Author Type: Registered Nurse Center Type: Nursing Progress Note Filed: 06/19/2020 3:27 PM Note Text: Nursing Progress Note Patient Name: Meryl Ogden Patient Location: [place] [address] [address]- RN removed restraints for patient to feed himself lunc h. Patient tolerated being out of restraints well with bedside sitter obser ving. Patient is alert to 0 and needs frequent re-orienting but is not currently attempting to pull at IV or get out of bed. Trauma team notified, bilateral wrist restraints were discontinued. Will continue to monitor patient closely. This note was completed by: Gracie Dolan RN PLAN OF CARE on 06-09 PLAN OF CARE HNO ID: [id number] [facility] Author: Joey Bearden Service: General Surgery Author Type: Resident Type: Plan of Care Filed: 06/18/2020 10:40 PM Note Text: S: Was paged by nurse that patient was getting dressed and was planning to leave AMA. Patient was confused and alerted. He had a CIWA score of 16. He was [id number]. Patient had pulled out 2 IVs. O: BP 153/103 Pulse 65 Temp 37.2 ?C (99 ?F) (Oral) Resp 18 Ht 190.5 cm (6' 3) Wt 68.5 kg (151 lb 0.2 oz) SpO2 9 9% BMI 18.88 kg/m? Patient confused, pacing around the room. Patient visi lupe shaking. Patient was seeing thing in his room A/P: Ativan 2mg given by RN. Able to redirect the stacy ent to back to bed. Will monitor the patient closely. Low threshold for IC U admit. Joey Bearden DO PGY-1 PROGRESS on 06-19-20 PROGRESS HNO ID: [id number] Normal [place] Author: Joey (Res) Suleiman vance Service: General Surgery Med ica Author Type: Resident Center Type: Progress Notes Filed: 06/19/2020 6:50 AM Note Text: Attestation signed by Vidhya Wang at 06/19/2020 10:44 AM Attending Note I personally saw and examined the patient. I reviewed the resident's note. I agree with the resident's assessment and plan unless o loreewise noted. In DT. So far no ICU need. Will need to remain hospitalized then likely to SNF Signature: Vidhya Wang MD Date: 06/19/2020 Time: 10:43 AM Trauma Surgery Progress Note SERVICE DATE: 06/19/2020 Trauma Service Pager: For questions or concerns Mon-Fri 6a-5p please page [phone]. After 5pm and on Weekends and Holidays, please page [phone] if in ICU or [phone] if on RNF. SUBJECTIVE: Overnight the patient is starting to display signs and symptoms of alcohol withdrawals. At 11 PM last night patient got dressed a nd attempted to leave AMA. We were able to redirect him to his bed.. 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 He admitted to seeing things in his room at the time he was shaking visibly. We were able to redirect him back to his bed. We gave him Ativan to help with withdrawals. He had given 1 in jection of Haldol to help with hallucinations. This morning patient was lying in bed with restraints intact. States that he was doing fine. when asked where patient was he sta julieth he was in a rock room in [place]. He states he did not know who he was shira santana stated today was 1973. 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 While pointing to the TV shira santana said the people on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 Additional comments: Patient was taught 7 languages Very well spoken Goal: Patient will participate in a reassessment in 0 using the CLQT to assess possible improvements in the cognitive areas listed above. Tolerated Full Session Goals for Plan of Care: Language Goals: Patient will increase word finding skills at word, phr ase, sentence and conversation level to 90% accuracy given moderate cues so that the patient may express basic ADL medical and social wants /needs. Cognitive Goals: Patient will demonstrate orientation to person, place, time, situation to 100% accuracy given moderate cues so that the patient can more actively engage in own personal care and recovery. Patient will improve functional auditory memory skills to 70% accuracy given moderate cues so that the patient may apply safe ty precautions for personal welfare. Patient will demonstrate use of simple problem solving skills with 70% accuracy given moderate cues so that the patient may p articipate in personal discharge planning. Patient /Caregiver Goals: Improve Cognition;Improve Co mmunication Speech Rehab Potential: Good PLAN: Treatment Frequency (times per week): 2 Current admission Treatment Interventions: Cognitive-Linguistic Manageme nt;Aphasia Management Plan of Care Developed with: Patient TREATMENT INTERVENTIONS: Therapy Diagnosis: Aphasia;Unspecified symbolic dysfun ctions Interventions Provided: Speech Language Eval (70000) $ Speech Language Eval (81397) Billed Units: 1 unit Total Treatment Time (minutes): 30 SUBJECTIVE: Current Hospital Course: Chart reviewed; Diagnosis: Subdural hematoma Reason for admit: Patient presents with: Trauma Evaulation: Sent from [facility] for subdural azucena anisha and trauma consult. Patient was found on the ground on his porch with no recolection of how he got there. He is a daily drinker and was giv en ativan prior to arrival. No complaints at this time. Meryl is a 49 year old male who was brought her from [facility] ED for a subdural hematoma. He was found on his front porch tod ay by his friend. He remember sitting on his front porch waiting for his fr iend then waking up on the ground. He has a history of alcoholism and prio r falls. He has only had one beer today. He normally drinks a 6 pack of bee r a day. He denied chest pain, SOB, headache, or visual changes. He state d he felt nauseous and hungry. CT justus IMPRESSION: Unchanged acute on chronic extra-axial hemorrhages sophie ng right cerebral convexity, with minimal mass effect on right frontal l obe. No evidence of midline shift. 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 Home Environment Prior Functional Level: Within Functional Limits Assistance Available: PRN Prior Swallowing Function/Diet Textures: Regular Consi stency;Thin Liquids IDDSI Level 0 Please see discipline specific clinical documentation flowsheet for complete details for this therapy evaluation/treatment . SIGNATURE: Corbin Pandya CCC-DIRECTOR OF ROOMS PATIENT NAME: Adams Ogden DATE: June 18, 2020 TIME: 12:16 PM ABO/Rh Confirmation on 06-17-2020 ABO group Nom (Bld) B Normal [facility] Comment on above: Performed By: #### ALCO3 ### # [place] [address] RH Type Positive Normal [facility] Comment on above: Performed By: #### ALCO3 ### # [place] [address] Activated PTT on aPTT Coag (Bld) [Time] 27.9 s Normal 23.0-32.4 [facility] Comment on above: Result Comment: Unfractionat ed Heparin Therapeutic Ranges: [...] AP TT reagent in use throughout the [facility]. Performed By: #### ALCO3 ### # [facility] [address] [place] [address] Alcohol, Serum on Alcohol, Serum 47.0 mg/dL High < 11 [facility] Comment on above: Performed By: #### ALCO3 ### # [place] [id number] Basic Metabolic Panel on 09-09-2020 Anion gap [Moles/Vol] 15 mmol/L Normal 9-18 [facility] Comment on above: Performed By: #### BMP #### [facility] [address] [place], [place] [address] Calcium [Mass/Vol] 8.0 mg/dL Low 8.5-10.2 [facility] Comment on above: Performed By: #### BMP #### [facility] [address] [place], [place] [address] Chloride [Moles/Vol] 96 mmol/L Low 97-105 [facility] Comment on above: Performed By: #### BMP #### [facility] [address] [place], [place] [address] CO2 Blood 26 mmol/L Normal 22-30 [facility] Comment on above: Performed By: #### BMP #### [facility] [address] [place], [place] [address] Creatinine [Mass/Vol] 0.50 mg/dL Low 0.73-1.22 [facility] Comment on above: Performed By: #### BMP #### [facility] [address] [place], [place] [address] Glucose [Mass/Vol] 67 mg/dL Low 74-99 [facility] Comment on above: Result Comment: The [place] Diabetes Association (ADA) provides guidance for cutoff [...] Standards of Medical Care in Diabetes 2016; [place] Diabetes Association. Diabetes Care. 2016;39(Suppl 1). Performed By: #### BMP #### [facility] [address] [place], [place] [address] Potassium [Moles/Vol] see below Normal 3.7-5.1 [facility] Comment on above: Result Comment: Unable to as say. Specimen Hemolyzed Performed By: #### BMP #### [facility] [address] [place], [place] [address] Sodium [Moles/Vol] 137 mmol/L Normal 136-144 [facility] Comment on above: Performed By: #### BMP #### [facility] [address] [place], [place] [address] Urea nitrogen [Mass/Vol] 5 mg/dL Low 9-24 [facility] Comment on above: Performed By: #### BMP #### [facility] [address] [place], [place] [address] CASE MANAGEM on CASE MANAGEM HNO ID: [id number] Normal [facility] Author: Belén Canela) Elodia Gutierrez Service: Social Work Author Type: Software Developer Manager Type: Care Mgt Progress Note Filed: 06/17/2020 4:21 PM Note Text: CARE MANAGEMENT PROGRESS NOTE SERVICE DATE: 06/17/2020 SERVICE TIME: 4:04 PM LOS: 0 days Lengthy phone conversation with pt mother, Jacqueline Rodriguez ). Pt mother and father live in [place] [facility]. Mother reports pt does not have income and she is sending him money each month for bills and food. Pt has one or two friends in apa rtment complex they may be helpful. Mother adds she does not think pt was able to care for himself before accident. Pt has steep steps leading to apartment that mother does not feel he can climb. Mother shares pt no longer has a vehicle and walks to store when able. Pt mother concerned pt may be drinking again but is not s ure. SW not able to verify lab information with pt mother. Pt mother states ex-spouse speaks with pt on occasion; pt has two minor children who reside with ex-spouse. D/c planning: Assess pt ability to identify safety iss ues; no caregiver to assist at home; recommendation for acute rehab. Pt mother to discuss concerns. Continue to follow. SIGNATURE: DRE Whitaker PATIENT NAME: Meryl Ogden DATE: June 17, 2020 TIME: 4:04 PM PAGER/CONTACT #: [phone] CASE MGT INIT PRECIOUS on 06-17-2020 CASE MGT INIT PRECIOUS HNO ID: [id number] Normal [facility] Author: Belén Canela) [facility] [place] Service: Social Work Author Type: Software Developer Manager Type: Care Mgt Initial Assessment Filed: 06/17/2020 3:42 PM Note Text: CARE MANAGEMENT: ASSESSMENT AND DISCHARGE PLAN SERVICE DATE: June 17, 2020 SERVICE TIME: 3:31 PM PRIMARY CARE PHYSICIAN: Yoko Glover MD ADMISSION STATUS: Inpatient Needs Prior to Discharge: To Be Determined MEDICAL: [facility] MEDICAID Patient/Child Psychiatrist Stated Goals: To have reduction in pain;To improve my functional status;To return home to life as it was Health Insurance: [employer];Medicaid Health Issues Impacting Discharge Plan: Newly diagnose d Newly Diagnosed: Subdural hematoma Last Discharge Date: N/A Is this Within the Past 30 days? Last discharge within 30 days: No Advance Directive: Current Advance Directive: None Splitting Machine Operator Attempted to Assist with AD Completion: Y es Action: Patient Unwilling Health LiteracyHow often do you need to have someone h elp you when you read instructions, pamphlets, or other written materia l from your doctor or pharmacy? : 1 - Never How confident are you filling out medical forms by you rself?: 1 - Extremely Baseline Mental Status Prior to this Illness what was the patient's Baseline Mental Status?: Alert AND Oriented Prior to this illness, has anyone described the patien t having any of the following behaviors?: Not Applicable Relationship of the informant to the patient:: Self Functional Status: Independent Does Patient Currently Receive Any Community Services or Home Care?: None Equipment Prior to Admission: None SOCIAL: Living Arrangements: Home Lives With: Alone Financial Resources: EmployedPrimary Contact: Extended Emergency Contact Information Primary Emergency Contact: GERONIMO VILLATORO Address: [address] [place], [place] [address] [address] Relation: Spouse Supportive Patient Contact:: Yes Contact [...] convinced of the importance of my prescription me dication: 0 - Agree Completely I worry that my prescription medication will do more h arm than good to me : 0 - Disagree Completely I feel financially burdened by my dlj-vs-ynrlgs expens es for my prescription medication:: 0 - Disagree Completely Risk Score: 0 Patient is categorized as: Low risk < 2 Are you interested in bedside delivery of your medicat ions? No Is Patient Psychosocially Complex?: Yes, refer to Soci al Work ASSESSMENT AND PLAN: Medical Needs: Medical Needs: Fall risk or frequent falls Psychosocial Needs: Psychosocial Needs: CAGE/Alcohol Assessment and ALCOHOL USE/ABUSE CAGE ASSESSMENT Two or More Affirmative Responses Suggest a Client is a Problem Drinker. - Have you felt the need to cut down on your drinking? Yes - Do you feel annoyed by people complaining about your drinking? Yes - Do you ever feel guilty about your drinking? Yes - Do you ever drink an eye-sub arc operator in the morning to re lieve shakes? 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 +PCP (Dr. Elmer Bravo - [facility]). Discussed plan of care and recommendation for acute re hab. Pt refusing stating he needs to d/c home. Declined conversation at this time re: home PT/OT. (PT 6 Clicks Score 14; OT 6 Clicks Score 14). Completed CAGE assessment with pt stating hx of substa nce use tx at [facility] in [place]. Discussed assessment and treatment supports available; Pt declined additional resource information at this ti me.. Education provided on cessation of use to encourage healthy life patterns. Transitional care plan: tbd; Home with [facility] SIGNATURE: DRE Whitaker PATIENT NAME: Meryl Ogden DATE: June 17, 2020 TIME: 3:31 PM PAGER/CONTACT #: [phone] CONSULT on 0 CONSULT HNO ID: [id number] D[facility] Medical [facility] Service: General Surgery Author Type: Resident Type: Consults Filed: 06/17/2020 12:02 AM Note Text: CONSULT: SICU Surgery Service SERVICE DATE: 06/16/2020 SERVICE TIME: 11:04 PM REASON FOR CONSULT: subdural hematoma REQUESTING PHYSICIAN: ED Subjective 49 year old male presents to [facility] as a transfer from [facility]. He apparently fell at home on his porch around 4 o'clock and had a positive LOC, not remembering what happened for a lengthy perio d of time afterwards. He does report not being able to get up af ter falling and is unsure as to why. He denies any headache, nausea, or v omiting. He does complain of some neck pain. The patient is a chronic a lcohol abuser drinking a 6-pack of beer per day, and he admits to dr lockharting 1 beer prior to falling tonight. His last full meal was yesterday a fternoon. FUNCTIONAL STATUS: Independent PAST MEDICAL HISTORY Diagnosis [...] (ATIVAN) 1 mg INTRAVENOUS q 1 H PRN - thiamine 200 mg in NaCl 0.9% 50 mL 200 mg INTRAVENOU S q 8 H Followed by - [START ON 06/19/2020] thiamine 100 mg tab(s) (VITAMIN B1) 100 mg ORAL/FEEDING TUBE TID - ondansetron 4 mg tab(s) (ZOFRAN) 4 mg ORAL q 6 H PRN Or - ondansetron (PF) 4 mg injection (ZOFRAN) 4 mg INTRAV ENOUS q 6 H PRN - NaCl 0.9% iv infusion 125 mL/hr INTRAVENOUS CONTINUO US - fentaNYL 50 mcg/mL 50 mcg injection (SUBLIMAZE) 50 m cg INTRAVENOUS ONCE - LORazepam 1 mg injection (ATIVAN) 1 mg INTRAVENOUS O NCE Allergies As of Date: 06/16/2020 Allergen Noted [...] midface stable to palpation, Eyes: PERRL, conjunctiva/corneas without lesions, EOM intact, Throat: Oral mucosa without lacerations, teeth in place, tongue without lacerations, tenderness lateral to left canthu s NECK: No lacerations/wounds, No JVD, Trachea midline, midline cervical tenderness RESPIRATORY: No abrasions or contusions, No crepitus, No TTP CARDIOVASCULAR: Heart rate regular ABDOMEN: Non-distended, No scars or lacerations, Non-t enderness or peritoneal signs, No masses or organomegaly PELVIC/PERINEAL: Pelvis stable to palpation BACK/SPINE: Thoracolumbar spinal column non-tender, No step off or deformity noted, No external injury noted EXTREMITIES: free AROM, no pain with palpation RADIOLO GICAL/OTHER TEST DATA: CTH, CXR: subdural hematoma ? ? PRIOR TO ARRIVAL: Cervical Collar BP 139/97 Pulse 87 Temp (Src) 99.3 (Oral) Resp 2 2 Ht 6' 3 (1.91m) Wt 150 lb [...] with a subdural hematoma following a fall from his porch on 06/16/20 Neuro: - Pain [...] output data in the 24 hours ending 0659 Heme: - monitor for anemia - am CBC - 1 unit of platelets for thrombocytopenia in the sett ing of an acute bleed. Endo: - monitor [...] SIGNATURE: George Cohen DO PATIENT NAME: Meryl Caban iebe DATE: June 16, 2020 TIME: 11:04 PM Pager: [phone] CONSULT HNO ID: [id number] Normal [facility] Medical Author: Yonatan Smith Service: Neurosurgery Author Type: Physician Type: Consults Filed: 06/19/2020 1:26 PM Note Text: CONSULT: Neurosurgery Service SERVICE DATE: 06/16/2020 SERVICE TIME: 11:29 PM REASON FOR CONSULT: SDH REQUESTING PHYSICIAN: Dr Wang Subjective 49 year old male who presents after unknown trauma (reyes [place] does not recall incident but thinks he might have fallen). Stacy ent was on his porch around 4 pm today waiting for a friend to come pick hi m up. He doesn't recall what happened next but he then remembers waking up on the ground unable to move with the ambulance arriving. He reports something similar happened three years ago when he fell and hit his head , resulting in a head bleed. 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 He drinks daily, report he only had one drink today wh en he usually has at least 6 FUNCTIONAL [...] (ATIVAN) 1 mg INTRAVENOUS q 1 H PRN - thiamine 200 mg in NaCl 0.9% 50 mL 200 mg INTRAVENOU S q 8 H Followed by - [START ON 06/19/2020] thiamine 100 mg tab(s) (VITAMIN B1) 100 mg ORAL/FEEDING TUBE TID - ondansetron 4 mg tab(s) (ZOFRAN) 4 mg ORAL q 6 H PRN Or - ondansetron (PF) 4 mg injection (ZOFRAN) 4 mg INTRAV ENOUS q 6 H PRN - NaCl 0.9% iv infusion 125 mL/hr INTRAVENOUS CONTINUO US - magnesium sulfate in sterile water [address] sterile wa ter 50 ml 2 g INTRAVENOUS ONCE - potassium chloride iv piggyback 20 mEq/100 mL 20 mEq INTRAVENOUS ONCE - [START ON 06/17/2020] potassium chloride iv piggyback 20 mEq/100 mL 20 mEq INTRAVENOUS ONCE Allergies As of Date: 06/16/2020 Allergen Noted Reaction BENADRYL [DIPHENHYDRAMINE HCL] 07/11/2005 Swelling CALADRYL CLEAR [PRAMOXINE-CAMPHOR*07/11/2005 Swelling Fully Assessed 06/16/2020 COMPLETE REVIEW OF SYSTEMS: PAIN ASSESSMENT: Negative for pain, history of chronic pain, or current treatment for a chronic pain condition. GENERAL: No weight loss, malaise or fevers HEENT: Negative for frequent or significant headaches, No changes in hearing or vision, no nose bleeds or other nasal probl ems, No nasal bleeding, congestion or rhinorrhea NECK: Negative for lumps, goiter, pain and significant neck swelling RESPIRATORY: Negative for cough, hemoptysis, wheezing, COPD, dyspnea or shortness of breath CARDIOVASCULAR: Negative for chest pain, leg swelling, hypertension, CHF or palpitations GI: chronic nausea Objective PHYSICAL EXAM: Physical Exam Performed: GENERAL: Alert, no distress, cooperative SKIN: Skin color, texture, turgor normal. No rashes or lesions. HEAD/SINUSES: No significant findings EYES: PERRLA, EOMI NECK: No jugulovenous distention, Supple LUNGS: RA. No ocugh or wheeze CARDIAC: RRR< good peripheral perfusion and palpable p eripheral pulses ABDOMEN: Soft, nontender EXTREMITIES: Extremities normal, no deformities, edema , clubbing or skin discoloration. Good capillary refill., no asterixis NEURO: Grossly normal cognition, motor function, and c ranial nerves III-XII BP 139/97 Pulse 87 Temp (Src) 99.3 (Oral) Resp 2 2 Ht 6' 3 (1.91m) Wt 150 lb [...] ICU for frequent neuro exams and close pipo toring - NPO, IVF - no DVT chemo ppx or AC/AP - no acute surgical intervention - Discussed with attending Dr Colin at 11:25 PM SIGNATURE: Shelbi Downey MD PATIENT NAME: Meryl Caban iebe DATE: June 16, 2020 TIME: 11:29 PM Pager: [phone] I reviewed the pertinent patient history and examinati on performed by PA/CLOUD SECURITY ARCHITECT and examined the patient myself on June 17, 2020 Unless indicated below I agree with the plan of care connor Leach MD CT BRAIN WO IVCON on 06-17-2020 CT BRAIN WO IVCON Final Report Normal [facility] [employer] DATE OF EXAM: Jun 17 2020 5:07AM System [facility] [id number] - CT BRAIN WO IVCON / PROCEDURE REASON: Head trauma, headache Physician Interpretation EXAMINATION: CT BRAIN WO IVCON CLINICAL HISTORY: Head trauma, headache. TECHNIQUE: Serial axial images without IV contrast wer e obtained from the vertex to the foramen magnum. MQ: CTBWO_3 CT Dose-Length Product (DLP): [address] Dose Reduction Employed: Iterative recon COMPARISON: Outside hospital CT head on 06/16/2020. RESULT: Post-operative change: None. Acute change: No CT evidence of acute cortical infarct . Hemorrhage: Unchanged size of acute on chronic extra-a xial hemorrhage along the right frontal convexity measuring 8 mm in th ickness. There is interval redistribution relation with the small amount of hyperdense hemorrhage layering posteriorly near the vertex. Minim al mass effect on adjacent the right frontal cortex.2 Mass Lesion / Mass Effect: No significant midline shif t. Chronic change: Patchy foci of low attenuation coeffic ient are present within the supratentorial white matter which is a nons pecific finding but likely represents moderate microvascular ischemia. Parenchyma: There is moderate generalized volume loss. The brain parenchyma is otherwise within normal limits for age. Ventricles: Ventricular enlargement concordant with th e degree of parenchymal volume loss. Paranasal sinuses and skull base: The visualized paran bert sinuses are grossly clear. The skull base and imaged soft tissues are unremarkable. Medical Affairs Director (topogram) images: No additional findings. IMPRESSION: Unchanged size of acute on chronic extra-axial hemorrh age along right cerebral convexity measuring 8 mm in thickness. Slight ly increased dependent hyperdense component near vertex is likely r edistribution of acute hemorrhage. No CT evidence of acute cortical infarct. Chronic small vessel ischemic white matter disease and diffuse cerebral volume loss. Enrollment Services Dean: PSCB Transcribe Date/Time: Jun 17 2020 7:40A Dictated by : CARLOS PELAEZ MD This examination was interpreted and the report review ed and electronically signed by: CARLOS PELAEZ MD on Jun 17 2020 7:49AM EST CT BRAIN WO IVCON Final Report Normal [employer] DATE OF EXAM: Jun 17 2020 4:03PM System [facility] [id number] - CT BRAIN WO IVCON / PROCEDURE REASON: Intracranial hemorrhage Physician Interpretation EXAMINATION: CT BRAIN WO IVCON CLINICAL HISTORY: Multifocal fall, intracranial hemorr eric. TECHNIQUE: Serial axial images without IV contrast wer e obtained from the vertex to the foramen magnum. MQ: CTBWO_3 CT Dose-Length Product (DLP): [address] Dose Reduction Employed: Iterative recon COMPARISON: 06/17/2020 at 5:01 AM. RESULT: Post-operative change: None. Acute change: No CT evidence of acute cortical infarct . Hemorrhage: Unchanged acute on chronic extra-axial hem orrhages along the right cerebral convexity, with the minimal mass ef fect on the right frontal lobe. These measures up to 13 mm in thickness. No significant midline shift. Mass Lesion / Mass Effect: No significant midline shif t. Chronic change: Scattered patchy foci of low attenuati on are present within supratentorial white matter which is a nonspeci fic finding but likely represents mild microvascular ischemia. Parenchyma: There is mild generalized volume loss. The brain parenchyma is otherwise within normal limits for age. Ventricles: Ventricular enlargement concordant with th e degree of parenchymal volume loss. Paranasal sinuses and skull base: The visualized paran bert sinuses are grossly clear. The skull base and imaged soft tissues are unremarkable. Medical Affairs Director (topogram) images: No additional findings. IMPRESSION: Unchanged acute on chronic extra-axial hemorrhages sophie ng right cerebral convexity, with minimal mass effect on right frontal l obe. No evidence of midline shift. Enrollment Services Dean: PSCB Transcribe Date/Time: Jun 18 2020 7:24A Dictated by : CARLOS PELAEZ MD This examination was interpreted and the report review ed and electronically signed by: CARLOS PELAEZ MD on Jun 18 2020 7:31AM EST Comprehensive Metabolic Panel on 06-17-2020 Albumin [Mass/Vol] 4.0 g/dL Normal 3.9-4.9 [facility] Comment on above: Performed By: #### CMP #### [facility] [address] [place], [place] [address] ALP [Catalytic activity/Vol] 74 U/L Normal 38-113 [facility] Comment on above: Performed By: #### CMP #### [facility] [address] [place], [place] [address] ALT [Catalytic activity/Vol] 45 U/L Normal 10-54 [facility] Comment on above: Performed By: #### CMP #### [facility] [address] [place], [place] [address] Anion gap [Moles/Vol] 14 mmol/L Normal 9-18 [facility] Comment on above: Performed By: #### CMP #### [facility] [address] [place], [place] [address] AST [Catalytic activity/Vol] 140 U/L High 14-40 [facility] Comment on above: Performed By: #### CMP #### [facility] [address] [place], [place] [address] Bilirubin [Mass/Vol] 0.7 mg/dL Normal 0.2-1.3 [facility] Comment on above: Performed By: #### CMP #### [facility] [address] [place], [place] [address] Calcium [Mass/Vol] 7.9 mg/dL Low 8.5-10.2 [facility] Comment on above: Performed By: #### CMP #### [facility] [address] [place], [place] [address] Chloride [Moles/Vol] 98 mmol/L Normal 97-105 [facility] Comment on above: Performed By: #### CMP #### [facility] [address] [place], [place] [address] CO2 Blood 28 mmol/L Normal 22-30 [facility] Comment on above: Performed By: #### CMP #### [facility] [address] [place], [place] [address] Creatinine [Mass/Vol] 0.48 mg/dL Low 0.73-1.22 [facility] Comment on above: Performed By: #### CMP #### [facility] [address] [place], [place] [address] Glucose [Mass/Vol] 72 mg/dL Low 74-99 [facility] Comment on above: Result Comment: The [place] Diabetes Association (ADA) provides guidance for cutoff [...] Standards of Medical Care in Diabetes 2016; [place] [employer] Association. Diabetes Care. 2016;39(Suppl 1). Performed By: #### CMP #### [facility] [address] [place], [place] [address] Potassium [Moles/Vol] 3.0 mmol/L Low 3.7-5.1 [facility] Comment on above: Performed By: #### CMP #### [facility] [address] [place], [place] [address] Protein [Mass/Vol] 6.8 g/dL Normal 6.3-8.0 [facility] Comment on above: Performed By: #### CMP #### [facility] [address] [place], [place] [address] Sodium [Moles/Vol] 140 mmol/L Normal 136-144 [facility] Comment on above: Performed By: #### CMP #### [facility] [address] [place], [place] [address] Urea nitrogen [Mass/Vol] 6 mg/dL Low 9-24 [facility] Comment on above: Performed By: #### CMP #### [facility] [address] [place], [place] [address] ED NOTE on 0 ED NOTE HNO ID: [id number] [facility] Author: Kwasi (Rn) MANDY Rivera Service: Emergency Medicine Author Type: Registered Nurse Type: ED Notes Filed: 06/17/2020 12:16 AM Note Text: Patient swabbed for COVID and sent to lab ED PROV NOTE on ED PROV NOTE HNO ID: [id number] [facility] Author: DO Matt Negro Service: Emergency Medicine Author Type: Physician Type: ED Provider Notes Filed: 06/17/2020 12:30 AM Note Text: ED Provider Note Patient Name: Meryl Ogden SERVICE DATE: 06/16/20 History Patient presents with: Trauma Evaulation: Sent from [place] for subdural azucena anisha and trauma consult. Patient was found on the ground on his porch with no recolection of how he got there. He is a daily drinker and was giv en ativan prior to arrival. No complaints at this time. SHAMIR Haji is a 49 year old male who was brought her from [facility] ED for a subdural hematoma. He was found on his front porch [facility] by his friend. He remember sitting on his front porch waiting for his fr iend then waking up on the ground. He has a history of alcoholism and prio r falls. He has only had one beer today. He normally drinks a 6 pack of bee r a day. He denied chest pain, SOB, headache, or visual changes. He state d he felt nauseous and hungry. PAST MEDICAL HISTORY Diagnosis [...] HENT: Negative for congestion, rhinorrhea, sinus pain, sneezing and sore throat. Respiratory: Negative for cough, chest tightness and s hortness of breath. Cardiovascular: Negative for chest pain, palpitations and leg swelling. Gastrointestinal: Positive for nausea. Negative for ab dominal pain, constipation, diarrhea and vomiting. Neurological: Positive for weakness (in his legs). Physical Exam BP 139/97 Pulse 87 Temp (Src) 99.3 (Oral) Resp 2 2 Ht 6' 3 (1.91m) Wt 150 lb (68.0kg) SpO2 98% BMI 18.75 kg/(m2). O2 Therapy: Room Air Physical Exam Constitutional: General: He is not in acute distress. Appearance: Normal appearance. He is not ill-appearing or diaphoretic. HENT: Head: Comments: Left temporal tenderness on palpation. Hemat marylou of the left ear. Mouth/Throat: Mouth: Mucous membranes are moist. Pharynx: Oropharynx is clear. No oropharyngeal exudate . Eyes: Extraocular Movements: Extraocular movements intact. Right eye: Nystagmus present. Left eye: Nystagmus present. Conjunctiva/sclera: Right eye: Right conjunctiva is injected. Left eye: Left conjunctiva is injected. Pupils: Pupils are equal, round, and reactive to light . Comments: Bilateral nystagmus Neck: Comments: No step off tenderness of the cervical spine Cardiovascular: Rate and Rhythm: Normal rate and regular rhythm. Pulses: Normal pulses. Heart sounds: Normal heart sounds. No murmur. Pulmonary: Effort: Pulmonary effort is normal. No respiratory dis tress. Breath sounds: Normal breath sounds. No wheezing or rh onchi. Abdominal: General: Abdomen is flat. Bowel sounds are normal. The re is no distension. Palpations: Abdomen is soft. Tenderness: There is no abdominal tenderness. There is no guarding or rebound. Musculoskeletal: General: No swelling or deformity. Comments: abrasion to right wrist from prior fall Skin: General: Skin is warm and dry. Capillary Refill: Capillary refill takes less than 2 s econds. Neurological: General: No focal deficit present. Mental Status: He is alert and oriented to person, russel ce, and time. Motor: No weakness. Diagnostic Testing ED Labs Ordered and Reviewed COMPREHENSIVE METABOLIC PANEL (AK,AV,EU,FV,HL,FLORENCIO,MM,SP ) - Abnormal; Notable for the following components: Result Value [...] CBC + AUTO DIFF (AK,AV,EU,FV,HL,FLORENCIO,MM,SP) - Abnormal; Notable for the following components: RBC 3.72 (*) [...] limits ALCOHOL / ETHANOL BLOOD (AK,AV,EU,FV,HL,FLORENCIO,MM,SP) - Ab normal; Notable for the following components: Alcohol, Serum 47.0 (*) <11 mg/dL All other components within normal limits MAGNESIUM BLOOD (AK,AV,EU,FV,HL,FLORENCIO,MM,SP) - Abnormal; Notable for the following components: Magnesium 1.2 (*) [...] 49 year old male who presented to [facility] ED from [place] for a subdural hematoma following and unwitnessed but suspected trama. Initial workup/management includes the following: Labs: CBC, CMP, GFR, lipase, Mg, ETOH level, Urine tox , PT/INR, COVID Meds: ativan, Zofran, fentanyl Imaging: CT brain, CT neck, CXR done at [place] ED EKG: Normal At this time, the decision was made to admit the patie nt to the ICU for further management. I discussed this with the patient, who was agreeable to the plan. The patient was admitted to Dr. Wang in stable condition. SIGNATURE: Willow Daugherty (Hussein) MD [facility]wan Resident 06/16/20 9038 I performed a history and physical examination of the patient and discussed the management with the resident. I reviewed the resident's note and agree with the documented findings and plan of car e. Harini Nolen DO 06/17/20 0030 ED PROV NOTE HNO ID: [id number] Normal [facility] Author: Harini Nolen DO Center Service: Emergency Medicine Author Type: Physician Type: ED Provider Notes Filed: 06/17/2020 12:06 AM Note Text: I performed a history and physical examination of the patient and discussed the management with the resident. I reviewed the resident's note and agree with the documented findings and plan of car e. The patient is a 49-year-old male sent to the emergenc y department as a transfer from [place] for trauma evaluation found to h ave acute on chronic subdural hematoma. The patient has a known history of alcohol abuse. He reports that he drinks at least a sixpack of beer alida y. He recalls being on his porch waiting for a friend. He then was found o n the ground by his friend acting altered. The patient does not recall fee ling ill before the episode. He was seen in [facility] where he had laboratory studies done along with a serum EtOH level that was elevated a t 150. CT imaging of the brain showed evidence of acute or chronic subdu ral hematoma. On exam, the patient is awake and alert. Vital signs a re stable. Head is normocephalic. The patient has some tenderness upon pa lpation and some dirt in the left temporal region and some bruising to the left ear. No midface deformity neuro instability. No dental injury or malocclusion. No midline neck or back tenderness to palpation, step- offs, crepitance, or deformities. Chest wall is nontender. Abdomen is soft, nontender, nondistended. Pelvis is stable. The patient moves all extremities equally. Peripheral pulses are palpable. Diagnostic studies were repeated including screening l abs. Serum alcohol level is 47. Platelets are 36. Potassium is 3, magnesi um 1.2. CIWA protocol is initiated. Case was discussed with the trauma service. They will admit the patient to the SICU. Critical Care I spent a total of 35 minutes of critical care time in the evaluation and management of this patient. This was necessary to enrike t or prevent deterioration of the following condition(s): Multiple trauma, which the patient had and/or has a high probability of suddenly developing. The patient received Consultation by trauma surgery during the time that critical care was provided.I discussed the plan of car e with the Resident and agree with the findings documented. Critical care time excludes separately billed procedures. DO Harini Negro DO 06/17/20 0006 HISTORY PHYSICAL on 06-17-2020 HISTORY PHYSICAL HNO ID: [id number] Normal [facility] Author: Shelbi Savage [facility] Service: General Surgery Author Type: Resident Type: HANDP Filed: 06/17/2020 8:48 AM Note Text: TRAUMA SURGERY HANDP [facility] ARRIVAL DATE: 06/16/2020 ARRIVAL TIME: 2129 CATEGORY: Level 3 INJURY DATE: 06/16/2020 INJURY TIME: 1600 Subjective 49 year old male presents to [facility] as a transfer from [facility]. He apparently fell at home on his porch around 4 o'clock and had a positive LOC, not remembering what happened for a lengthy perio d of time afterwards. He does report not being able to get up af ter falling and is unsure as to why. He denies any headache, nausea, or v omiting. He does complain of some neck pain. The patient is a chronic a lcohol abuser drinking a 6-pack of beer per day, and he admits to dr inking 1 beer prior to falling tonight. His last full meal was yesterday a fternoon. HPI/CHIEF COMPLAINT: fall BRIEF DESCRIPTION OF INJURIES: Chronic RUE wound LAST FLUIDS/MEAL: 06/15/20 afternoon CODE STATUS: Not discussed ALLERGIES Allergen Reactions - Benadryl [Diphenhyd* Swelling - Caladryl Clear [Pra* Swelling (Not in a hospital admission) DATE OF LAST TETANUS: unknown There is no immunization history on file for this stacy ent. PAST MEDICAL HISTORY Diagnosis Date - ASTHMA [...] midface stable to palpation, Eyes: PERRL, conjunctiva/corneas without lesions, EOM intact, Throat: Oral mucosa without lacerations, teeth in place, tongue without lacerations, tenderness lateral to left canthu s NECK: No lacerations/wounds, No JVD, Trachea midline, midline cervical tenderness RESPIRATORY: No abrasions or contusions, No crepitus, No TTP CARDIOVASCULAR: Heart rate regular ABDOMEN: Non-distended, No scars or lacerations, Non-t enderness or peritoneal signs, No masses or organomegaly PELVIC/PERINEAL: Pelvis stable to palpation BACK/SPINE: Thoracolumbar spinal column non-tender, No step off or deformity noted, No external injury noted EXTREMITIES: free AROM, no pain with palpation RADIOLO GICAL/OTHER TEST DATA: CTH, CXR: subdural hematoma PRIOR TO ARRIVAL: Cervical Collar Labs: No results for input(s): NA, K, CHLOR, CO2, BUN, CREAT , GLUC, ANION, CA, MG, P, ALB, AST, ALT, ALKPHOS, TBILI, DBILI, PHOSINTL, WBC, HB, HCT, PLT, LACT, INR, PH, PCO2, PO2, BE, HCO3 in the last 72 hour s. Invalid input(s): [facility] Assessment/Plan There are no active hospital problems to display for t his patient. 49 year old male with a h/o chronic alcohol abuse pres ents to [facility] with a subdural hematoma s/p fall from [...] alcoholism 10. CIWA protocol and vitamin replacements/Mag replace ment given history of alcoholism 11. Current diet order: [...] Assessment and plan discussed with Staff Trauma Attend ing Surgeon: Dr. Wang SIGNATURE: George Cohen DO PATIENT NAME: Meryl Caban iebe DATE: June 16, 2020 TIME: 10:36 PM Pager: see below Trauma Service Pager: For questions or concerns Mon-Mon 6a-5p please page [phone]. After 5pm and on Weekends and Holidays, please page [phone] if in ICU or [phone] if on RNF. Hemogram on 06-17-20 20 Erythrocyte distribution width 13.0 % Normal 11.6-14.4 [facility] (RBC) [Ratio] Comment on above: Performed By: #### ALCO3 ### # [facility] [address] [place] [address] Erythrocyte distribution width 12.9 % Normal 11.6-14.4 [facility] (RBC) [Ratio] Comment on above: Performed By: #### CMP #### [place] [address] Hematocrit (Bld) [Volume fraction] 34.3 % Low 40.1-5 1.0 [facility] Comment on above: Performed By: #### ALCO3 ### # [place] [address] Hematocrit (Bld) [Volume fraction] 35.5 % Low 40.1-5 1.0 [facility] Comment on above: Performed By: #### CMP #### [place] [address] Hemoglobin (Bld) [Mass/Vol] 11.9 g/dL Low 13.7-17.5 [facility] Comment on above: Performed By: #### ALCO3 ### # [place] [address] Hemoglobin (Bld) [Mass/Vol] 12.2 g/dL Low 13.7-17.5 [facility] Comment on above: Performed By: #### CMP #### [address] [address] MCH (RBC) [Entitic mass] 33.6 pg High 25.7-32.2 [facility] Comment on above: Performed By: #### ALCO3 ### # [address] [address] MCH (RBC) [Entitic mass] 33.2 pg High 25.7-32.2 [facility] Comment on above: Performed By: #### CMP #### [facility] [address] [place] [address] MCHC (RBC) [Mass/Vol] 34.7 % Normal 32.3-36.5 [facility] Comment on above: Performed By: #### ALCO3 ### # [facility] [address] [place] [address] MCHC (RBC) [Mass/Vol] 34.4 % Normal 32.3-36.5 [facility] Comment on above: Performed By: #### CMP #### [facility] [address] [place] [address] MCV (RBC) [Entitic vol] 96.9 fL High 83.2-95.6 [facility] Comment on above: Performed By: #### ALCO3 ### # [facility] [address] [place] [address] MCV (RBC) [Entitic vol] 96.7 fL High 83.2-95.6 [facility] Comment on above: Performed By: #### CMP #### [facility] [address] [place] [address] Platelet mean volume (Bld) 11.2 fL Normal 8.7-12.0 [facility] [Entitic vol] Comment on above: Performed By: #### ALCO3 ### # [facility] [address] [place] [address] Platelet mean volume (Bld) 11.1 fL Normal 8.7-12.0 [facility] [Entitic vol] Comment on above: Performed By: #### CMP #### [facility] [address] [place] [address] Platelets (Bld) [#/Vol] 31 thou/cmm Critically low 141-365 [facility] Comment on above: Result Comment: Repeated AND verified Performed By: #### ALCO3 ### # [facility] [address] [place], [place] [address] Platelets (Bld) [#/Vol] 58 thou/cmm Low 141-365 [facility] Comment on above: Result Comment: Smear scanne d tech agrees with platelet count Performed By: #### CMP #### [facility] [address] [place] [address] RBC (Bld) [#/Vol] 3.54 mil/cmm Low 4.63-6.08 [facility] Comment on above: Performed By: #### ALCO3 ### # [facility] [address] [place] [address] RBC (Bld) [#/Vol] 3.67 mil/cmm Low 4.63-6.08 [facility] Comment on above: Performed By: #### CMP #### [facility] [address] [place] [address] RDW SD 46.3 fl High 36.1-45.8 [facility] Comment on above: Performed By: #### ALCO3 ### # [facility] [address] [place] [address] RDW SD 45.6 fl Normal 36.1-45.8 [facility] Comment on above: Performed By: #### CMP #### [facility] [address] [place] [address] WBC (Bld) [#/Vol] 4.96 thou/cmm Normal 4.23-9.07 [facility] Comment on above: Performed By: #### ALCO3 ### # [facility] [address] [place] [address] WBC (Bld) [#/Vol] 4.45 thou/cmm Normal 4.23-9.07 [facility] Comment on above: Performed By: #### CMP #### [facility] [address] [place] [address] Hemogram/Diff on Abs Immature Grans 0.02 thou/cmm Normal 0.00-0.05 [facility] Comment on above: Performed By: #### CBCD1 ### # [facility] [address] [place] [address] Abs Neut (ANC) 2.94 thou/cmm Normal 1.78-5.38 [facility] Comment on above: Performed By: #### CBCD1 ### # [facility] [address] [place] [address] Abs. Baso 0.06 thou/cmm Normal 0.01-0.08 [facility] Comment on above: Performed By: #### CBCD1 ### # [facility] [address] [place] [address] Abs. Price 0.47 thou/cmm Normal 0.30-0.82 [facility] Comment on above: Performed By: #### CBCD1 ### # [facility] [address] [place] [address] Basophils/100 WBC (Bld) 1.3 % Normal [facility] Comment on above: Performed By: #### CBCD1 ### # [facility] [address] [place] [address] Eosinophils (Bld) [#/Vol] 0.07 thou/cmm Normal 0.04-0.54 [facility] Comment on above: Performed By: #### CBCD1 ### # [facility] [address] [place] [address] Eosinophils/100 WBC (Bld) 1.5 % Normal [facility] Comment on above: Performed By: #### CBCD1 ### # [facility] [address] [place] [address] Erythrocyte distribution width 13.2 % Normal 11.6-14.4 [facility] (RBC) [Ratio] Comment on above: Performed By: #### CBCD1 ### # [facility] [address] [place] [address] Hematocrit (Bld) [Volume fraction] 36.0 % Low 40.1-5 1.0 [facility] Comment on above: Performed By: #### CBCD1 ### # [facility] [address] [place] [address] Hemoglobin (Bld) [Mass/Vol] 12.3 g/dL Low 13.7-17.5 [facility] Comment on above: Performed By: #### CBCD1 ### # [facility] [address] [place] [address] Immature Grans 0.40 % Normal [facility] Comment on above: Performed By: #### CBCD1 ### # [facility] [address] [place], [place] [address] Lymphocytes (Bld) [#/Vol] 1.10 thou/cmm Normal 0.84-2.85 [facility] Comment on above: Performed By: #### CBCD1 ### # [facility] [address] [place], [place] [address] Lymphocytes/100 WBC (Bld) 23.6 % Normal [facility] Comment on above: Performed By: #### CBCD1 ### # [facility] [address] [place], [place] [address] MCH (RBC) [Entitic mass] 33.1 pg High 25.7-32.2 [facility] Comment on above: Performed By: #### CBCD1 ### # [facility] [address] [place] [address] MCHC (RBC) [Mass/Vol] 34.2 % Normal 32.3-36.5 [facility] Comment on above: Performed By: #### CBCD1 ### # [facility] [address] [place], [place] [address] MCV (RBC) [Entitic vol] 96.8 fL High 83.2-95.6 [facility] Comment on above: Performed By: #### CBCD1 ### # [facility] [address] [place], [place] [address] Monocytes/100 WBC (Bld) 10.1 % Normal [facility] Comment on above: Performed By: #### CBCD1 ### # [facility] [address] [place], [place] [address] Platelet mean volume (Bld) 11.1 fL Normal 8.7-12.0 [facility] [Entitic vol] Comment on above: Performed By: #### CBCD1 ### # [facility] [address] [place], [place] [address] Platelets (Bld) [#/Vol] 36 thou/cmm Critically low 141-365 [facility] Comment on above: Performed By: #### CBCD1 ### # [facility] [address] [place] [address] RBC (Bld) [#/Vol] 3.72 mil/cmm Low 4.63-6.08 [facility] Comment on above: Performed By: #### CBCD1 ### # [facility] [address] [place] [address] RDW SD 47.0 fl High 36.1-45.8 [facility] [employer] Comment on above: Performed By: #### CBCD1 ### # [facility] [address] [place] [address] Seg Neutrophil 63.1 % Normal [facility] Comment on above: Performed By: #### CBCD1 ### # [facility] [address] [place] [address] WBC (Bld) [#/Vol] 4.66 thou/cmm Normal 4.23-9.07 [facility] Comment on above: Performed By: #### CBCD1 ### # [facility] [address] [place] [address] Lipase Blood on Lipase Blood 37 U/L Normal 16-61 [facility] [employer] Comment on above: Performed By: #### LIP #### [facility] [address] [place] [address] Magnesium Blood on 0 06-17-2020 Magnesium [Mass/Vol] 1.2 mg/dL Low 1.7-2.3 [facility] Comment on above: Performed By: #### MAG #### [facility] [address] [place] [address] Magnesium [Mass/Vol] 1.9 mg/dL Normal 1.7-2.3 [facility] Comment on above: Performed By: #### ALCO3 ### # [facility] [address] [place] [address] PROGRESS on 06-17-20 PROGRESS HNO ID: [id number] Normal [facility] Author: Shashank Hernandez [place] Service: General Surgery Author Type: Physician Type: Progress Notes Filed: 07/13/2020 8:17 AM Note Text: Trauma Surgery Progress Note SERVICE DATE: 06/17/2020 Trauma Service Pager: For questions or concerns Mon-Fri 6a-5p please page [phone]. After 5pm and on Weekends and Holidays, please page [phone] if in ICU or [phone] if on RNF. SUBJECTIVE: No acute events. Feels pretty well this AM. Still with little left sided CASTRO. No neuro deficits. No other complaints. OBJECTIVE: Vitals: Temp (24hrs), Av ?C (98.6 ?F), Min:36.5 ?C (97.7 ? F), Max:37.4 ?C (99.3 ?F) BP 137/104 Pulse 79 Temp 36.8 ?C (98.2 ?F) (Axilla ry) Resp 14 Ht 190.5 cm (6' 3) Wt 68 kg (150 lb) SpO2 99% B RI 18.75 kg/m? O2 Therapy: Room Air IANDO: Date 06/16/20699 - 06/17/20 0606/17/20699 - 07/28 0659 Shift [id number] 5867-8577 2620-2139 24 Hour Total 0700 -1459 6143-8882 7769-8640 24 Hour Total INTAKE IV 950 950 Volume (mL) (NaCl 0.9% iv infusion) 650 650 Volume (mL) (thiamine 200 mg in NaCl 0.9% 50 mL) 100 1 00 Volume (mL) (potassium chloride iv piggyback 20 mEq/10 0 mL) 100 100 Volume (mL) (potassium chloride iv piggyback 20 mEq/10 0 mL) 100 100 Blood Products 351 351 [...] potassium chloride ER 20-40 mEq tab(s) (K-DUR, KLOR- CON) 20-40 mEq ORAL/FEEDING TUBE PRN Or - potassium chloride iv piggyback 20 mEq/100 mL 20 mEq INTRAVENOUS PRN - magnesium sulfate in sterile water [address] sterile wa ter 50 ml 2 g INTRAVENOUS PRN - calcium gluconate 4 g in NaCl 0.9% 250 mL 4 g INTRAV ENOUS PRN - sodium chloride 0.9 % (flush) 3-5 mL (BD POSIFLUSH) 3-5 mL INTRAVENOUS q 12 H - acetaminophen 975 mg tab(s) (TYLENOL) 975 mg ORAL q 6 H PRN - oxyCODONE IR 5-10 mg tab(s) (ROXICODONE) 5-10 mg ORA L q 4 H PRN - morphine 2 mg injection 2 mg INTRAVENOUS q 4 H PRN - levETIRAcetam 1,000 mg tab(s) (KEPPRA) 1,000 mg ORAL BID - thiamine 100 mg tab(s) (VITAMIN B1) 100 mg ORAL/FEED ING TUBE TID - sodium phosphate 45 mmol in D5W 250 mL 45 mmol INTRA VENOUS ONCE - LORazepam 1 mg tab(s) (ATIVAN) 1 mg ORAL q 1 H PRN Or - LORazepam 1 mg injection (ATIVAN) 1 mg INTRAVENOUS q 1 H PRN - ondansetron 4 mg tab(s) (ZOFRAN) 4 mg ORAL q 6 H PRN Or - ondansetron (PF) 4 mg injection (ZOFRAN) 4 mg INTRAV ENOUS q 6 H PRN - NaCl 0.9% iv infusion 125 mL/hr INTRAVENOUS CONTINUO US Labs: Recent Labs 06/17/20 0200 06/16/20 2220 [...] Genl: Appears age appropriate. No acute distress. Rest ing comfortably. Head/Face: Normocephalic. Atraumatic. Eyes: EOMI. Sclera not icteric, not injected Neck: No mid-line masses. C-spine non-tender. Back: T AND L Spine non-tender, no step-offs or deform ities noted. No flank tenderness. Resp: Lung sounds are clear bilat. No wheezes. No rale s. Breathing is non-labored on RA. CVS: RRR as above; 2+ pulses at RA, DP, PT bilat. GI: Abdomen is soft, non-tender, not distended. Bowel sounds normoactive. No peritonitis. MSK: Extremities without clubbing, cyanosis, edema. No rmal ROM x 4. Skin: Warm and dry. Not jaundiced. Neuro: AANDOx3. Strength and sensation normal. LEE. GC S15. Psych: Normal mood. Normal affect. Appropriate insight into current situation. ASSESSMENT AND PLAN: Active Hospital Problems Diagnosis Date Noted - Subdural hematoma (HCC) 06/17/2020 49 year old male with a h/o chronic alcohol abuse pres ents to [facility] with a subdural hematoma s/p fall from [...] AM. 8. CIWA protocol and vitamin replacements/Mag replacem ent given history of alcoholism 9. Current diet order: NPO 10. Pain regimen: Tylenol, oxycodone 11. Avoid anticoagulants 12. zofran prn nausea 13. DVT ppx: SCDs 14. Patient states that he has trouble walking. PT/OT assessment. 15. Likely to floor today. ? PPX: 1. DVT: SCDs 2. Ulcer: no 3. Vit D level if > 65 yo: no ? Consulted Services: 1. Neurosurgery ? Dispo Plannin. PT/OT recs TBD. Case management following. ? Incidentals: 1. none ? Follow Up Needs: 1. PT/OT Staff Trauma Surgeon: Dr. Hernandez SIGNATURE: Dale Hyatt MD PATIENT NAME: Meryl Caban iebe DATE: June 17, 2020 TIME: 6:42 AM Pager: see below Trauma Service Pager: For questions or concerns Mon-Fri 6a-5p please page [phone]. After 5pm and on Weekends and Holidays, please page [phone] if in ICU or [phone] if on RNF. Attending Note I evaluated the patient and personally participated in the benjamin components on 06/17/2020 I agree with the resident's findings and plan as docum ented and have discussed the case and management of the patient's car e with the resident. Shashank Hernandez MD Delayed entry PROGRESS HNO ID: [id number] [facility] Author: [facility] Service: General Surgery Author Type: Physician Type: Progress Notes Filed: 06/17/2020 10:28 AM Note Text: INPATIENT SICU PROGRESS NOTE SERVICE DATE: 06/17/2020 SERVICE TIME: 7:50 AM Subjective Patient is doing well this morning. No acute events ov ernight. Denies any headache or vision changes. No neuro deficits. Patient states he is hungry and would like to eat something. Current Facility-Administered Medications Medication Dose Route Frequency - LORazepam 1 mg tab(s) (ATIVAN) 1 mg ORAL q 1 H PRN Or - LORazepam 1 mg injection (ATIVAN) 1 mg INTRAVENOUS q 1 H PRN - ondansetron 4 mg tab(s) (ZOFRAN) 4 mg ORAL q 6 H PRN Or - ondansetron (PF) 4 mg injection (ZOFRAN) 4 mg INTRAV ENOUS q 6 H PRN - potassium chloride ER 20-40 mEq tab(s) (K-DUR, KLOR- CON) 20-40 mEq ORAL/FEEDING TUBE PRN Or - potassium chloride iv piggyback 20 mEq/100 mL 20 mEq INTRAVENOUS PRN - magnesium sulfate in sterile water [address] sterile [address] ter 50 ml 2 g INTRAVENOUS PRN - calcium gluconate 4 g in NaCl 0.9% 250 mL 4 g INTRAV ENOUS PRN - sodium chloride 0.9 % (flush) 3-5 mL (BD POSIFLUSH) 3-5 mL INTRAVENOUS q 12 H - acetaminophen 975 mg tab(s) (TYLENOL) 975 mg ORAL q 6 H PRN - oxyCODONE IR 5-10 mg tab(s) (ROXICODONE) 5-10 mg ORA L q 4 H PRN - morphine 2 mg injection 2 mg INTRAVENOUS q 4 H PRN - levETIRAcetam 1,000 mg tab(s) (KEPPRA) 1,000 mg ORAL BID - thiamine 100 mg tab(s) (VITAMIN B1) 100 mg ORAL/FEED ING TUBE TID - sodium phosphate 45 mmol in D5W 250 mL 45 mmol INTRA VENOUS ONCE Objective VITAL SIGNS BP 137/104 Pulse 79 Temp (Src) 98.2 (Axillary) R meredith 14 Ht 6' 3 (1.91m) Wt 150 lb (68.0kg) SpO2 99% BMI 18.75 kg /(m2). O2 Therapy: Room Air Temp (24hrs), Av ?C (98.6 ?F), Min:36.5 ?C (97.7 ? F), Max:37.4 ?C (99.3 ?F) Date 06/16/20699 - 06/17/20 0659 06/17/20 07 - 07/28 0659 Shift [id number] 6007-8327 7121-6494 24 Hour Total 0700 -1459 9963-0551 7654-8149 24 Hour Total INTAKE IV 950 950 Volume (mL) (NaCl 0.9% iv infusion) 650 650 Volume (mL) (thiamine 200 mg in NaCl 0.9% 50 mL) 100 1 00 Volume (mL) (potassium chloride iv piggyback 20 mEq/10 0 mL) 100 100 Volume (mL) (potassium chloride iv piggyback 20 mEq/10 0 mL) 100 100 Blood Products 351 351 [...] GENERAL: Alert, no distress, cooperative, No Distress, Cooperative SKIN: Skin color, texture, turgor normal. No rashes or lesions. LUNGS: non labored breathing on O2 Therapy: Room Air s ating at SpO2: 99 % CARDIAC: Regular rate and rhythm as above ABDOMEN: soft, nontender EXTREMITIES: ROM of all joint grossly normal: strength grossly normal bilaterally. No deformities noted. NEURO: AANDO x3. Strength and sensation normal. No def icits. DATA: Diagnostic tests reviewed for today's visit: No results for input(s): BODSITE, CTYPE, PH, PCO2, PO2 , BE, HCO3, CO2CT, O2HB, COHB, MHGB, TEMP, [...] old male with chronic alcohol abuse who presented to [facility] with a subdural hematoma after a fall from his [facility]. Hospital course: 06/17 CT brain shows stable subdural hematoma Neuro: - keppra 1 g BID - AM CT, hematoma stable from previous imaging. Unchan ged size of acute on chronic extra-axial hemorrhage. -q1hr neuro exams and close monitoring. May de-escalat e due to stable condition. -Neuro following and not planning acute surgical inter vention -Thiamine replacement CV: RRR -daily CBC -SCDs [...] 11.9 -thrombocytopenia platelets 31 likely 2/2 chronic alco hol use -1 unit platelets ordered -daily cbc Endo: GLU - 67 ID: - no sign of infection - WBC 4.96 ? Ext: - DVT ppx: SCDs ? Ppx: - DVT: SCDs - GI: no - Seizure: keppra Consults: SICU, Trauma, neuro Dispo: transfer to floor vs discharge home today SICU Service Pager: For questions or concerns Mon-Fri 6a-5p please page [phone]. After 5pm and on Weekends and Holidays, please page [phone]. SIGNATURE: Melissa Begum DO PATIENT NAME: Meryl santana DATE: June 17, 2020 TIME: 7:50 AM PAGER: above Platelets in system is 31 before platelets transfusion . Known thrombocytopenia Repeat platelets this PM And alcohol withdrawal seizure Stable repeat head CT scan No Anticoagulation due to risk of rebleed Neurocheck to Q4 hours DC NS Diet as tolerated Activity as tolerated Has history of ataxia and nystagmus with alcohol withd aditi seizure, possible previous Wernicke. Plan for multivitamin plus thiamine and folate. Drop oxycodone dose Ok to floor I provided 35 minutes of critical care services which were necessary due to above specified injuries and illnesses. This patien t has a high probability of sudden, clinical significant deteriorat ion, which required the highest level of care and preparedness to interven e urgently. I managed and supervised life or organ supporting interv entions that require frequent assessments. This time does not include time devoted to teaching and to any procedure I billed separately. I have personally seen and examined this patient and p articipated in the benjamin components of this encounter with the [facility] ICU team. I discussed the management of this case with the residen t and reviewed/confirmed their documentation, attached or in separate note. I personally reviewed today's actual images, the associa julieth image reports, and current labs. I supervised the ordering of additio nal testing, imaging, labs, and/or consultations. The patient and/o r family were fully informed of the findings and plan of care. They had th e opportunity to ask questions and raise any issues of concern, all of whic h were answered and dealt with by me to their stated satisfaction. 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 Management of critical care illnesses are edited above by me, including system by system plan and are not only limited to infe ctious disease and tailoring the antibiotic therapy, nutrition assessment and supplementation, electrolyte correction and prevention of ICU related complications using ventilator bundle, sedation holida y and assessment and removal of lines and [...] goal VTE Prophylaxis: Chemoprophylaxis: No chemoprophylaxis Mechanical Proph ylaxis: Knee high SCD No Chemoprophylaxis Reason: Bleeding risk, Thrombocyto penia Pressure Injury Status: None ICU plan of care visit at bedside in last 24 hours: Todd berry, Provider, RN, Patient/ designee ICU Disposition- Is Patient Clinically Ready to Transf er to RNF or SDU?: Yes, transfer to SDU or [facility] today Discharge Planning: To be determined SIGNATURE: Vidhya Wang MD PATIENT NAME: Meryl Ogden DATE: June 17, 2020 TIME: 10:12 AM PROGRESS HNO ID: [id number] Normal [facility] Medical Author: Simran Lyons) [facility] Service: Neurosurgery Author Type: Physician Mock Up Builder Type: Progress Notes Filed: 06/17/2020 3:12 PM Note Text: PROGRESS NOTE NEUROSURGERY SERVICE DATE: 06/17/2020 Subjective INTERVAL HPI No acute events overnight. Patient resting comfortably . Denies headache, vision issues, nausea, vomiting. Current Facility-Administered Medications Medication Dose Route Frequency - LORazepam 1 mg tab(s) (ATIVAN) 1 mg ORAL q 1 H PRN Or - LORazepam 1 mg injection (ATIVAN) 1 mg INTRAVENOUS q 1 H PRN - ondansetron 4 mg tab(s) (ZOFRAN) 4 mg ORAL q 6 H PRN Or - ondansetron (PF) 4 mg injection (ZOFRAN) 4 mg INTRAV ENOUS q 6 H PRN - potassium chloride ER 20-40 mEq tab(s) (K-DUR, KLOR- CON) 20-40 mEq ORAL/FEEDING TUBE PRN Or - potassium chloride iv piggyback 20 mEq/100 mL 20 mEq INTRAVENOUS PRN - magnesium sulfate in sterile water [address] 50 ml 2 g INTRAVENOUS PRN - calcium gluconate 4 g in NaCl 0.9% 250 mL 4 g INTRAV ENOUS PRN - sodium chloride 0.9 % (flush) 3-5 mL (BD POSIFLUSH) 3-5 mL INTRAVENOUS q 12 H - levETIRAcetam 1,000 mg tab(s) (KEPPRA) 1,000 mg ORAL BID - thiamine 100 mg tab(s) (VITAMIN B1) 100 mg ORAL/FEED ING TUBE TID - folic acid 1 mg tab(s) 1 mg ORAL DAILY - therapeutic multivitamin-minerals tablet (THERA-M PL US) 1 tablet ORAL DAILY - acetaminophen 975 mg tab(s) (TYLENOL) 975 mg ORAL q 6 H - oxyCODONE IR 2.5-5 mg tab(s) (ROXICODONE) 2.5-5 mg O RAL q 6 H PRN Objective Physical Exam Performed: General - Alert, cooperative, appropriate Cardiac - regular rate, intact peripheral pulses Resp - even, unlabored HEENT - Normocephalic. Atraumatic. Neck/Back - No midline or paraspinal tenderness. No gr oss bony deformities. Neuro - A+O x3, PERRL, makes eye contact, speech clear , cranial nerves 2-12 grossly intact, strength and sensation WNL. No fo paulo deficits Extremities- Grossly normal. Symmetrical. No edema, de formity, coloration changes. VITAL SIGNS 24 HOUR REVIEW: [...] ? 87 22 98 % ? ? 06/16/20 2123 136/85 37.4 ?C (99.3 ?F) Oral 86 [...] Unchanged size of acute on chronic extra-axial hemorrh age along right cerebral convexity measuring 8 mm in thickness. Slight ly increased dependent hyperdense component near vertex is likely r edistribution of acute hemorrhage. Assessment/Plan This is a 49 y/o with history of alcohol abuse, s/p fa ll with subsequent SDH: -Neuro stable. Continue neuro checks. -Will obtain additional serial CT Brain -Keppra for seizure prophylaxis -[facility] protocol -Pain control -Discussed with Dr. Leach Medication and Non-Pharmacologic VTE Prophylaxis/Antic oagulants 06/17/20 0145 vte pharmacologic prophylaxis contraindi cated ([place], [place]) 06/17/20 0145 pneumatic compression stockings ([place]) VTE Prophylaxis: VTE prophylaxis appropriate SIGNATURE: Simran Alcantar PA-C PATIENT NAME: Meryl Ogden DATE: June 17, 2020 TIME: 2:59 PM PAGER/CONTACT #: Pager: [phone] Pheresed Platelets o n 06-17-2020 Pheresed Plts unit 1 Done Normal [facility] Comment on above: Performed By: #### ALCO3 ### # [facility] [address] [place] [address] Phosphorous Blood on 06-17-2020 Phosphate [Mass/Vol] 2.9 mg/dL Normal 2.7-4.8 [facility] Comment on above: Performed By: #### ALCO3 ### # [facility] [address] [place], [place] [address] Protime on 0 INR Coag (PPP) [Relative time] 1.09 {INR} Normal 0.90-1.30 [facility] Comment on above: Result Comment: Vitamin K An tagonist (VKA) Therapeutic Range: INR 2 to 3 (Target INR of 2.5) Note: For patients treated w ith VKA drugs, such as warfarin, the [employer] 2012 Guideline recommends a therapeutic INR range of 2 to 3 (target INR of 2.5). This recommendation includes high -risk patients with antiphospholipid syndrome with previous arter ial or venous thromboembolism, current-generation mechanica l or bioprosthetic aortic heart valve replacement. Note: Patients with insulation mechanic al aortic valve replacement and additional risk factors for thromboembolic events (atrial fibrillation, previous throm boembolism, LV dysfunction, hypercoagulable conditions) or an older generation mechanical AVR (i.e., ball in-Cage) or any mechanical MVR should have a INR therapeutic range of 2 .5 to 3.5 target INR of 3). Álvaro GH, et al. Chest 2012 ; 141:7S-47S Ada RA et al. [facility] 20 17; 70: 252-289 Performed By: #### PT #### [facility] [address] [place], [place] [address] INR Coag (PPP) [Relative time] 1.07 {INR} Normal 0.90-1.30 [facility] Comment on above: Result Comment: Vitamin K An tagonist (VKA) Therapeutic Range: INR 2 to 3 (Target INR of 2.5) Note: For patients treated w ith VKA drugs, such as warfarin, the [employer] 2012 Guideline recommends a therapeutic INR range of 2 to 3 (target INR of 2.5). This recommendation includes high -risk patients with antiphospholipid syndrome with previous arter ial or venous thromboembolism, current-generation mechanica l or bioprosthetic aortic heart valve replacement. Note: Patients with insulation mechanic al aortic valve replacement and additional risk factors for thromboembolic events (atrial fibrillation, previous throm boembolism, LV dysfunction, hypercoagulable conditions) or an older generation mechanical AVR (i.e., ball in-Cage) or any mechanical MVR should have a INR therapeutic range of 2 .5 to 3.5 target INR of 3). Álvaro SHEIKH, et al. Chest 2012 ; 141:7S-47S Ada PRICE et al. [facility] 20 17; 70: 252-289 Performed By: #### ALCO3 ### # [facility] [address] [place], [place] [address] PT Coag (PPP) [Time] 11.3 s Normal 9.7-13.0 [employer] Comment on above: Performed By: #### PT #### [facility] [address] [place] [address] PT Coag (PPP) [Time] 11.1 s Normal 9.7-13.0 [employer] Comment on above: Performed By: #### ALCO3 ### # [place] [address] Rapid, COVID 19 on 0 06-17-2020 Rapid, COVID 19 Negative Normal Negative [employer] Comment on above: Result Comment: This test castro s been authorized by the FDA under an Emergency Use Authorization (EUA). Performed By: #### RCOVD ### # [place] [address] THERAPY NT on 2019 THERAPY NT HNO ID: [id number] Normal [employer] [facility] Author: Yuly (Ot/L) [facility] Service: ? Author Type: Occupational Therapist Type: Therapy (PT/OT/Speech/Resp) Filed: 06/17/2020 10:29 AM Note Text: Occupational Therapy Evaluation SERVICE DATE: 06/17/2020 SERVICE TIME: 914 to 931 ROOM: [id number] Recommended Discharge Disposition: Acute Rehab Recommended Discharge Disposition Comments: Patient wa s completely independent prior to admission and does not have the s ocial support needed to safely return home. Justification For Post Acute Needs: Anticipate patient will tolerate 3 hours of daily therapy at the time of admission to pos t-acute setting;Living the community premorbidly;Motivated;Gurpreet ling to participate;Good premorbid functional status;Anticipat ed community discharge OT Recommendations to Nursing: Edge of bed ADL?s;With assist of 1 person;Bedside Commode for Toileting Equipment: Wheeled Walker;Commode-Bedside OT 6 Clicks Score: 14 Precautions/Activity Restrictions: Fall Risk;Bed/Chair Alarm;Lines/Tubes/Drains ASSESSMENT: Patient presents with deficits in feeding, grooming, u pper and lower body dressing, toileting, bathing and functional transfers due to decreased functional strength, coordination, balance, endurance, mobility, safety awareness, judgment, short term memory and functional problem solving after falling at home with resulting right subdural he matoma. Scored a 17 on Short Blessed (>10 indicates cognitive impairment). Patient lives alone and was very independent prior to admission; has full flight of stairs up to apartment and limited social support. Requires skil led OT to maximize safety and independence with ADLs and functional trans fers. Patient Disposition at Start of Session: Supine in Bed ;Call Esquivel in Reach;Bed Alarm Patient Disposition at End of Session: Other: See Comm ent(sitting edge of bed with PT ) Tolerated Full Session Occupational Therapy Problem List: Cognitive Deficit;E ducation Deficit;Safety Deficits;Impaired Self Care;Decreased A ctivity Tolerance;Decreased Strength;Functional Mobility Impai rment;Balance Impaired Patient /Caregiver Goals: Care For Self [...] Goal 1: Patient will complete ADL rotuine a nd functional mobility with 10% or less verbal cues for safety aware ness and judgement. Additional Goal 2: Patient will complete functional mo bility during ADL routine using appropriate assistive device with superv ision. Additional Goal 3: Patient will answer 5/5 home safety questions accurately. Increased Awareness of Cognitive Impairments as Relate d to ADL's/IADL's: Demonstrated;Verbalized Rehab Potential: Good PLAN: Treatment Frequency (times per week): 5(2-5) Current admission Treatment Interventions: Education;Self Care / Home Ma nagement;Energy Conservation Training;Strengthening;Functional Mobilit y Training;Balance Training;Cognitive Training Plan of Care developed with: Patient TREATMENT INTERVENTIONS: Therapy Diagnosis: Reduced mobility-other;Decreased ac tivities of daily living (ADL);Muscle Weakness (generalized);Unsteadines s on feet;Abnormalities of gait and mobility-other;General symptoms and signs-other;Signs and Symptoms Involving Cognitive Fun ctions and Awareness;Lack of coordination-other Interventions Provided: Evaluation $ Evaluation-Moderate (55251) Billed Units: 1 unit OT Evaluation Moderate Complexity: Occupational Profile - Extended review of patient's me dical record completed including patient's physical, cognitive, and psycho-social history (please see current hospital course of evaluat ion). Occupational Performance - Pt presents with deficits i n feeding, grooming, UE bathing/dressing, LE bathing/dressing, functional t ransfers, functional mobility, decreased safety awareness, decreased insigh t into deficits Complexity in Clinical Decision Making - The extent of clinical reasoning was moderate, several treatment options present for th e patient, need for modification during the evaluation was minimal/moderat e, comorbidities affecting occupational performance: alcohol abuse, fal l x 3 years ago with head bleed Performed Short Blessed Test on this date. A screening test in itself is insufficient to diagnose a dementing order. However, t he SBT is quite sensitive to early cognitive changes associated with d ementing disorders. A score in the impaired range indicate a need for furt her assessment. Pt scored a 17 on this date. A score of 10 or more sugges ts impairment consistent with dementia. Total Treatment Time (minutes): 17 SUBJECTIVE: Current Hospital Course: Chart reviewed; 49 year old m tarik admitted after falling at home (+ LOC) with right subdural hematoma - no mass effect or midline shift. No plan for neurosurgical intervention. Reason for Occupational Therapy Consult: Progressive m obility protocol Relevant Past Medical History: alcohol abuse, fall x 3 years ago with head bleed Patient Report: I feel a little shaky. I don't think I can walk, I'm afraid I'll fall. Pleasant and agreeable to participa te. Some dizziness upon sitting, quickly resolved. No complaints of pain or discomfort. Pain: 0/10 Home Environment Patient Lives With: Self/Alone Assistance Available: None Entry To Home: Stairs Number Of Stairs Into Home: 12 Number Of Stairs To Bed/Bath: 0 Tub/Shower Type: walk in shower no seat Laundry: in apartment, patient usually completes Equipment Owned: Cane;Grab Bars-Shower;Wheeled Walker( Does not use any assistive device now ) Prior Functional Level: Within Functional Limits Prior Functional Level Comments: Patient was indepeden t with ADLs and IADLs. Uses public transportation. OBJECTIVE: Cognition/Communication Deficits Orientation Deficits: Not oriented to Time(Stated it w as May 30) Responsiveness: Alert;Awake Follows Commands: Cueing Needed;1-step Commands;2-step Commands Cueing to Follow Commands: Minimum Attention Deficits: Divided Memory Deficits: Short Term Executive Function Deficits: Sequencing;Judgement;Insi ght to Deficits;Problem Solving;Safety Awareness Sequencing Deficit: Minimal impairment Judgement Deficit: Moderate impairment Insight to Deficits: Moderate impairment Problem Solving Deficit: Minimal impairment Safety Awareness Deficit: Moderate impairment Cognitive Clinical Tests and Screens: Short Blessed Te st 1. What Year Is It Now?: Incorrect [...] Functional Mobility Comments: Did not progress to func tional mobility; very unsteady on feet upon standing Balance: Static Sitting;Dynamic Sitting;Static Standin g Static Sitting Balance: Fair(Fair +) Patient able to m aintain balance with handhold support, may require occasional minimal assistance(Fair +) Dynamic Sitting Balance: Fair Patient accepts minimal challenge, able to maintain balance while turning head/trunk Static Standing Balance: Poor Patient requires handhol d support and moderate to maximal assistance to maintain position Activity Tolerance: Standing Activity;Sitting Activity Sitting Activity: ADL and assessment at edge of bed Sitting Activity Tolerance (in minutes): 5 Standing Activity: Static stand at edge of bed Standing Activity Tolerance (in minutes): 0.5 Please see discipline specific clinical documentation flowsheet for complete details for this therapy evaluation/treatment . SIGNATURE: ALINE Don/Sofie PATIENT NAME: Meryl Ogden DATE: June 17, 2020 TIME: 10:25 AM THERAPY NT HNO ID: [id number] Normal [place] Author: Bailey (Pt) Feliz Harris [facility] Service: Physical Therapy Author Type: Physical Therapist Type: Therapy (PT/OT/Speech/Resp) Filed: 06/17/2020 2:50 PM Note Text: Physical Therapy Evaluation SERVICE DATE: 06/17/2020 SERVICE TIME: 931 to 947 ROOM: [place] [address] Recommended Discharge Disposition: Acute Rehab Recommended Discharge Disposition Comments: Normally i ndependent Justification For Post Acute Needs: Anticipate patient will tolerate 3 hours of daily therapy at the time of admission to pos t-acute setting;Living the community premorbidly;Good premorbi d functional status;Medically complex;Motivated PT Recommendations to Nursing: Transfer to/from chair; OOB for Meals;With assist of 2 people Device: Wheeled Walker PT 6 Clicks Score: 14 Precautions/Activity Restrictions: Fall Risk;Bed/Chair Alarm;Lines/Tubes/Drains ASSESSMENT : This patient was admitted for fall, SDH, has the past medical history of alcohol abuse, fall x 3 years ago with head bleed impa cting current functional level, as well as the social factors compli cating the discharge of patient lives alone. This patient is below baseline functioning of independent, uses public transportation, walks to the store and will benefit from continued skilled therapy in the hospital for treatment of the following body systems/impairments: musculoskeleta l, integumentary, cardiopulmonary, neuromuscular (gait, transfers, bed m obility, balance, endurance, safety and strengthening). Patient Disposition at Start of Session: Call Esquivel in Reach;Sitting Edge of Bed Patient Disposition at End of Session: Supine in Bed;C all Esquivel in Reach;Bed Alarm Tolerated Full Session Physical Therapy Problem List: Education Deficit;Safet y Deficits;Decreased Strength;Functional Mobility Impairment;Balance Impair ed Patient /Caregiver Goals: Go Home Goals for Plan of Care: Able to perform HEP with: Supervision Transfer supine to/from sit with: Supervision Transfer sit to/from stand with: Supervision Ambulate with: Supervision Distance: 60 feet intervals Device: Wheeled Walker Rehab Potential: Good PLAN: Treatment Frequency (times per week): 5(2-4) Current admission Treatment Interventions: Education;Strengthening;Funct ional Mobility Training;Balance Training;Neuromuscular Re-education Plan of Care developed with: Patient TREATMENT INTERVENTIONS: Therapy Diagnosis: Reduced mobility-other;Muscle Weakn ess (generalized);Unsteadiness on feet Interventions Provided: Evaluation $ Evaluation-Moderate (04909) Billed Units: 1 unit History and examination of body systems see assessment section above. This patient?s clinical presentation is evolving. The patient required a moderate complexity evaluation. Total Treatment Time (minutes): 16 SUBJECTIVE: Current Hospital Course: Chart reviewed; fall, +ETOH, +SDH - stable, non op treatment Reason for Physical Therapy Consult : fall, SDH Relevant Past Medical History: alcohol abuse, fall x 3 years ago with head bleed Patient Report: Denies pain. Agreeable to physical the rapy. Home Environment Patient Lives With: Self/Alone Assistance Available: None Entry To Home: Stairs Number Of Stairs Into Home: 12 Number Of Stairs To Bed/Bath: 0 Tub/Shower Type: walk in shower no seat Laundry: in apartment, patient usually completes Equipment Owned: Cane;Grab Bars-Shower;Wheeled Walker( Does not use any assistive device now ) Prior Functional Level: Within Functional Limits Prior Functional Level Comments: Ambulates without ass ist, does his own ADLs and IADLs. uses public transportation OBJECTIVE: CURRENT FUNCTIONAL STATUS: Current Functional Mobility Assist Level Additional In formation Rolling Supine to Sit Sit to Supine Minimal Assistance Scooting Sit to Stand Moderate Assistance Stand to Sit Moderate Assistance Bed to Chair Toilet/Commode Gait Stairs Curb Step Range of Motion: WFL Strength: WFL Except;Strength Limitation Comments Strength Limitation Comments: Andrés Reyna 4-/5 JH-HLM: 5: Standing (1 or more minutes) Please see discipline specific clinical documentation flowsheet for complete details for this therapy evaluation/treatment . SIGNATURE: Bailey Piper PT PATIENT NAME: Meryl mcdonald DATE: June 17, 2020 TIME: 2:48 PM Type and Screen on 0 9-09-2020 Comment See Below Normal [facility] Comment on above: Result Comment: Screen &/or Xmatch expires in 3 days at 12 midnight. Redraw patient at that time. Performed By: #### ALCO3 ### # [facility] [address] [place], [place] [address] Urine Drug Screen on 06-17-2020 Urine Alcohol 87 mg/dL High 0-11 [facility] Comment on above: Performed By: #### [email or web address] ### # [facility] [address] [place] [address] Urine Amphetamine Negative Normal NEGATIVE [facility] Comment on above: Performed By: #### [email or web address] ### # [facility] [address] [place], [place] [address] Urine Barbiturates Negative Normal NEGATIVE [facility] Comment on above: Performed By: #### [email or web address] ### # [facility] [address] [place] [address] Urine Benzodiazepine Negative Normal NEGATIVE [facility] Comment on above: Performed By: #### [email or web address] ### # [facility] [address] [place] [address] Urine Cocaine Metab Negative Normal NEGATIVE [facility] Comment on above: Performed By: #### [id number] ### # [facility] [address] [place] [address] Urine Opiates Negative Normal NEGATIVE [facility] Comment on above: Performed By: #### [email or web address] ### # [facility] [address] [place] [address] Urine Oxycodone Negative Normal NEGATIVE [facility] Comment on above: Performed By: #### [email or web address] ### # [facility] [address] [place] [address] Urine PCP Negative Normal NEGATIVE [facility] Comment on above: Result Comment: Test Cutoff Unit Amphetamines 1000 ng/mL Barbiturates 200 ng/mL Benzodiazepines 200 ng/mL Cannabinoids 50 ng/mL Cocaine 300 ng/mL Opiates 300 ng/mL Oxycodone 100 ng/mL Phencyclidine 25 ng/mL Reference Range: Negative at cutoff threshold Immunoassay screen only. Postal Carrier ss reactivity with other substances can occur [...] the same specimen through the laboratory at ([phone]) if contact ed within 48 hours of initial 1. Substance Abuse and [facility] Administration (2012). [facility] Drug Testing in Primary Care Technical Assistance Publica tion Series 32. Department of Health and Human Services, [place], p.10. Performed By: #### [email or web address] ### # [facility] [address] [place], [place] [address] Urine THC Negative Normal NEGATIVE [facility] Comment on above: Performed By: #### [email or web address] ### # [facility] [address] [place], [place] [address] XR CHEST 1V FRONTAL on 06-17-2020 XR CHEST 1V FRONTAL Final Report Normal [employer] [facility] DATE OF EXAM: Jun 17 2020 2:35AM System [id number] - XR CHEST 1V FRONTAL / PROCEDURE REASON: Brain trauma Physician Interpretation EXAMINATION: CHEST RADIOGRAPH (SINGLE VIEW AP OR PA) CLINICAL HISTORY: Brain trauma MQ: [id number] Comparison: Not available RESULT: Lines, tubes, and devices: None. Lungs and pleura: No consolidation. No lung mass. No p leural effusion. Cardiomediastinal silhouette: Normal cardiomediastinal silhouette. Other: . IMPRESSION: No acute radiographic abnormality. Enrollment Services Dean: PSCB Transcribe Date/Time: Jun 17 2020 3:30A Dictated by : SHABNAM WEST MD This examination was interpreted and the report review ed and electronically signed by: SHABNAM WEST MD on Jun 17 2020 3:30AM EST XR PELVIS 1V AP on 0 06-17-2020 XR PELVIS 1V AP Final Report Normal [employer] DATE OF EXAM: Jun 17 2020 2:35AM System [id number] - XR PELVIS 1V AP / PROCEDURE REASON: Brain trauma Physician Interpretation EXAMINATION: XR PELVIS 1V AP CLINICAL HISTORY: Brain trauma Technique: XR PELVIS 1V AP -- NOT APPLICABLE with 1 vi ews on 1 images Comparison: None RESULT: No acute fracture or osseous lesions are identified. H ip joint spaces are preserved bilaterally. The soft tissue structures are unremarkable. IMPRESSION: No acute findings Enrollment Services Dean: ZORAN Transcribe Date/Time: Jun 17 2020 3:24A Dictated by : DARREL CHANG MD This examination was interpreted and the report review ed and electronically signed by: DARREL CHANG MD on Jun 17 2020 3:25AM EST ED NOTE on 0 ED NOTE HNO ID: [id number] [facility] Author: Jessica (Rn) MANDY Strickland Service: ? Author Type: Registered Nurse Type: ED Notes Filed: 06/16/2020 9:18 PM Note Text: Bed: 16-ED Expected date: Expected time: Means of arrival: Comments: YASH TRAUMA CONSULT Summary Purpose Family History No Family History Records FoundNo Family History Records Found Advance Directives No Advanced Directives Records FoundNo Advanced Directives Records Found Hospital Course Note HNO ID: [id number] Author: Destinee Sampson) [place] Service: General Surgery Author Type: Nurse Practitioner Type: Discharge Summa ry Filed: 06/25/2020 9:06 AM Note Text: DISCHARGE SUMMARY PATIENT NAME: Meryl Ogden Code Status: Not on file Highest Readmission Risk Score: 19 The 3 0 day readmissions risk score is derived from an internally validated risk model which evaluates patient level characteristics, utilization history, medication orders a nd lab results up until the day of discharge. Patients with a score of 40 or above are considered highest risk for readmission. Specific patient level drivers will be l isted at the bottom of the summary. Admission Information Admission Information ADMIT DATE: 06/16/2020 DISCHARGE DATE: 06/22/2020 MY DOCTORS AND MEDICAL TEAM: My Main Hospit al Doctor: Vidhya Wang Primary Care Provider: Yoko Glover MD My Medical Team Membe rs: Treatment Team: Attending Provider: Vidhya Wang MY CONDITION AT DISCHARGE: Stable REASON I WAS IN THE HOSPITAL: You fel (more content not included)... Additional Source Comments (unrecognized section and cont ent) No Status Records FoundNo Preg pau Status Records Found INFORMATION SOURCE (unrecognized section and content) DATE CREATED AUTHOR AUTHOR'S ERICH BATISTA 07/02/2020 [facility] DATE CREATED AUTHOR AUTHOR'S CANDACE Fitzpatrick 07/13/2020 [facility] FOR RECORDS PERTAINING TO PATIENTS WHO ARE OR HAVE BEEN ENROLLED IN A CHEMICAL DEPENDENCY/SUBSTANCE ABUSE PROGRAM, SOME INFORMATION MAY BE OMITTED. This clinical summary was aggregated from multiple sources. Caution should be exercised in using it in the provision of clinical care. This summary normalizes information from multiple sources, and as a consequence, information in this document may materially change the coding, format and clinical context of patient data. In addition, data may be omitted in some cases. CLINICAL DECISIONS SHOULD BE BASED ON THE PRIMARY CLINICAL RECORDS. [facility] [email or web address] provides no warranty or guarantee of the accuracy or completeness of information in this document.
--- OUTSIDE RECORDS SUMMARY | 2021-02-24 06:09 | XMS RPT_ITS ---
Patient Summarization (C-CDA 2.1 CCD) Created on:February 24, 2021 Patient:MR. MERYL OGDEN Sex:Male :1970 External Reference #:[id number] Author Organization Sample organization Procedures Date Procedure Procedure Detail Performing Clin ician Start: 06-17-2020 Antibody screen Comment on above: Performed By: #### ALCO3 ### # [place] [address] Results Test Name Value Interpretation Reference Range Facility CASE MANAGEM on 06-09 CASE MANAGEM HNO ID: [id number] [facility] Author: Maggy south (Sw) Service: ? Author Type: Unhairing Inspector Type: Care Mgt Progress Note Filed: 06/22/2020 2:46 PM Note Text: CARE MANAGEMENT PROGRESS NOTE SERVICE DATE: 06/22/2020 SERVICE TIME: 2:36 PM LOS: 5 days Needs Prior to Discharge: Other: See Comment;Discharge Transportation(Accepting [facility] Agency) Referrals for [facility] PT/OT sent to [facility], [facility] Lu[facility]and [facility], [facility], [facility], [facility]), [facility], [facility], [facility] [place] all u nable to accept pt. Escalated this to CM territory manager general sales for assistance. Additional referrals sent to [facility], [facility], [facility], [facility], [facility], [facility], and [facility]. Awaiting r dre. SIGNATURE: WILLIAM Quiroga PATIENT NAME: Meryl santana DATE: June 22, 2020 TIME: 2:36 PM PAGER/CONTACT #: [phone] CASE MANAGEM HNO ID: [id number] Normal [facility] Author: Maggy south (Sw) Service: ? Author Type: Unhairing Inspector Type: Care Mgt Progress Note Filed: 06/23/2020 11:34 AM Note Text: CARE MANAGEMENT DISCHARGE NOTE SERVICE DATE: 06/22/2020 SERVICE TIME: 3:50 PM LOS: 5 days Admission Date: 06/16/2020 DISCHARGE ARRANGEMENT (list agency and phone number) Discharge Arrangement: Home;Home [facility] Care: PT;OT Provider Name: [facility] CAREGIVER ASSESSMENT: Caregiver is ready, willing and able to meet the patie nt's needs as recommended by the inter-professional team:: Yes Does the patient have an acute stroke diagnosis, or castro s the patient had a stroke during this admission?: No Patient's transition needs and plan for meeting these needs: Home with [facility] HANDOFF COMMUNICATION: Handoff to: Primary Care Physician Primary Care Physician Name/Phone: Dr. lGover TRANSPORTATION ARRANGEMENTS: Transportation Arrangements: Taxi Cab Voucher ADDITIONAL CONTACT RESOURCES: Maury Solares Pt to go home with [facility] via cab ride at 5PM. SOC in 24 -48hrs. SIGNATURE: WILLIAM Quiroga PATIENT NAME: Meryl santana DATE: June 22, 2020 TIME: 3:50 PM PAGER/CONTACT #: [phone] CASE MANAGEM HNO ID: [id number] Normal [place] [facility] Author: Maggy south (Sw) Service: ? Author Type: Unhairing Inspector Type: Care Mgt Progress Note Filed: 06/23/2020 11:57 AM Note Text: CARE MANAGEMENT PROGRESS NOTE SERVICE DATE: 06/23/2020 SERVICE TIME: 11:55 AM LOS: 5 days [facility] follow-up Per [facility], pt needs to schedule an appointment with his PCP. Called pt and LM explaining to make an appointment JOSUÉ with his PCP as well as provided [facility] phone number and informed him they are trying to get in touch with him for SOC. SIGNATURE: WILLIAM Quiroga PATIENT NAME: Meryl Lizamasamantha santana DATE: June 23, 2020 TIME: 11:55 AM PAGER/CONTACT #: [phone] NURSING PROG on 06-09 NURSING HNO ID: [id number] Normal [place] PROG Author: Mercy StephensonRn) MANDY Saucedo General Service: Nursing Medical Author Type: Registered Nurse Center Type: Nursing Progress Note Filed: 06/22/2020 11:54 AM Note Text: Nursing Progress Note Patient Name: Meryl Ogden Patient Location: [place] [address]/[id number]- Patient anxious to be discharged home, BP 149/106. Rosario se Drain BUSINESS DATA ANALYST notified, no new orders received. Will continue to mon. This note was completed by: Mercy Saucedo RN PLAN OF CARE on 06-09 PLAN OF CARE HNO ID: [id number] Normal [facility] Medical Author: Laura Tyler (Grade Checker) Center Service: Pharmacy Author Type: Pharmacist Type: [...] total o f 7 days. Laura Tyler, Grade Checker June 22, 2020 4:21 PM Medication List START taking these medications levETIRAcetam 1,000 mg tablet Commonly known as: KEPPRA Take 1 tablet by mouth twice daily for 4 doses. Bogdan augustin Where to Get Your Medications These medications were sent to [facility] [address] [place] [address] Hours: Monday-Monday, 8am-6:30pm ? levETIRAcetam 1,000 mg tablet You can get these medications from any pharmacy Bring a paper prescription for each of these medicatio ns ? Bogdan Sanchez CASE MANAGEM on 06-09 CASE MANAGEM HNO ID: [id number] [facility] Author: Deborah Nash (Sw) Service: ? Author Type: Unhairing Inspector Type: Care Mgt Progress Note Filed: 06/21/2020 12:41 PM Note Text: CARE MANAGEMENT PROGRESS NOTE SERVICE DATE: 06/21/2020 SERVICE TIME: 12:39 PM LOS: 4 days Progress note Referral sent [facility], [facility], [facility], [facility],and [facility] for PT/OT. Awaiting acceptance. SIGNATURE: PAMELA Shepherd PATIENT NAME: Meryl santana DATE: June 21, 2020 TIME: 12:39 PM PAGER/CONTACT #: [phone] CASE MANAGEM HNO ID: [id number] [facility] Author: Rita StephensonRn) MANDY Baeza Service: [...] 21, 2020 TIME: 4:03 PM PAGER/CONTACT #: [phone] NURSING PROG on 06-09 NURSING HNO ID: [id number] [facility] Author: Jessica Shay RN General Service: Nursing Medical Author Type: Registered Nurse Center Type: Nursing Progress Note Filed: 06/21/2020 8:36 AM Note Text: Nursing Progress Note Patient Name: Meryl Ogden Patient [id number] Wang of patient's elevated blood pressur e This note was completed by: Jessica Shay RN PROGRESS on 06-21-20 20 PROGRESS HNO ID: [id number] Normal [facility] Medical Author: Destinee Sampson) Gama south Service: [...] 06/20/20699 - 06/21/2065806/21/20 07 - 0659 Shift 9798-8861 0620-5689 0319-8522 24 Hour Total 0700 -1459 8570-3129 9892-8386 24 Hour Total INTAKE PO 240 240 PO 240 240 IV 50 50 Volume (mL) (magnesium sulfate in sterile water 2 g in sterile water 50 ml) 50 50 Shift Total 290 290 OUTPUT Urine 1300 7790 686 5532 200 200 Void (ml) 1300 7818 017 6709 200 200 Shift Total 1300 0551 741 9219 200 200 Weight (kg) 68.5 68.5 68.4 [...] h/o chronic alcohol abuse pres ents to [facility] with a subdural hematoma?s/p?fall from his porch. [...] on Weekends and Holidays, please page [phone] if in ICU or [phone] if on RNF. THERAPY NT on 2019 THERAPY NT HNO ID: [id number] Normal [place] [facility] Author: Kentrell (Pt) Sabrina [facility] Service: Physical Therapy Author Type: Physical Therapist Type: Therapy (PT/OT/Speech/Resp) Filed: 06/21/2020 9:07 AM Note Text: Physical Therapy Treatment SERVICE DATE: 06/21/2020 SERVICE TIME: 0835 to 0900 ROOM: [place] [address] Recommended Discharge Disposition: Home PT Recommended Discharge [...] return home at this time to a [facility] for improved activity tolerance and safe return [...] (generalized);Unsteadiness on feet Interventions Provided: Gait Training (05538);Therapeu tic Exercise (66621) Therapeutic Exercise (88129) Treatment Minutes: 10 1 unit Skilled Intervention(s): [...] ues provided for proper performance. Gait Training (27582) Treatment Minutes: 15 1 unit Skilled Intervention(s): [...] TIME: 9:03 AM THERAPY NT HNO ID: [id number] Normal [place] [facility] stark Author: Yuly StephensonOt/L) [facility] Service: ? Author Type: Occupational Therapist Type: Therapy (PT/OT/Speech/Resp) Filed: 06/21/2020 9:58 AM Note Text: Occupational Therapy Treatment SERVICE DATE: 06/21/2020 SERVICE TIME: 924 to 939 ROOM: [id number] Recommended Discharge Disposition: Home OT Recommended Discharge [...] strongly against placement at acute rehab or prison fa cility at discharge. Recommend home with [...] Cognitive Functions and Awareness Interventions Provided: Self [facility] Management (975 35);Cognitive Training (18388 and 94466) 2019 New Self [facility] Management (07098) Treatment Minutes: 7 Skilled Intervention(s): Instructed in [...] understanding. 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 Reviewed answers with patient; receptive, verb alized understanding. Total Timed Code Treatment Minutes: 15 Total Treatment Time (minutes): 15 SUBJECTIVE: Current Hospital Course: Chart reviewed; [facility] protocol during admission. Reason for Occupational Therapy [...] Deficits Orientation Deficits: Not oriented to Place([facility]new [facility]; didnt know city (he is from [place])) Responsiveness: Alert;Awake Follows Commands: 2-step Commands;3-step Commands [...] Standing Activity: Functional mobility to and from [facility] Standing Activity Tolerance (in minutes): 2 [...] Anion gap [Moles/Vol] 11 mmol/L Normal 9-18 [facility] Comment on above: Performed By: #### CMP #### [facility] [address] [place] [address] Calcium [Mass/Vol] 9.7 mg/dL Normal 8.5-10.2 [facility] Comment on above: Performed By: #### CMP #### [facility] [address] [place] [address] Chloride [Moles/Vol] 98 mmol/L Normal 97-105 [facility] Comment on above: Performed By: #### CMP #### [facility] [address] [place] [address] CO2 Blood 26 mmol/L Normal 22-30 [facility] Comment on above: Performed By: #### CMP #### [facility] [address] [place] [address] Creatinine [Mass/Vol] 0.54 mg/dL Low 0.73-1.22 [facility] Comment on above: Performed By: #### CMP #### [facility] [address] [place] [address] Glucose [Mass/Vol] 112 mg/dL High 74-99 [facility] Comment on above: Result Comment: The [place] Diabetes Association (ADA) provides guidance for cutoff [...] Standards of Medical Care in Diabetes 2016; [place] [employer] Association. Diabetes Care. 2016;39(Suppl 1). Performed By: #### CMP #### [facility] [address] [place] [address] Potassium [Moles/Vol] 3.9 mmol/L Normal 3.7-5.1 [facility] Comment on above: Performed By: #### CMP #### [place] [address] Sodium [Moles/Vol] 135 mmol/L Low 136-144 [facility] Comment on above: Performed By: #### CMP #### [facility] [address] [place], [place] [address] Urea nitrogen [Mass/Vol] 12 mg/dL Normal 9-24 [facility] Comment on above: Performed By: #### CMP #### [address] [address] Hemogram on 06-20-20 20 Erythrocyte distribution width 12.7 % Normal 11.6-14.4 [facility] (RBC) [Ratio] Comment on above: Performed By: #### PT #### [facility] [address] [place], [place] [address] Hematocrit (Bld) [Volume fraction] 36.3 % Low 40.1-5 1.0 [facility] Comment on above: Performed By: #### PT #### [facility] [address] [place], [place] [address] Hemoglobin (Bld) [Mass/Vol] 12.7 g/dL Low 13.7-17.5 [facility] Comment on above: Performed By: #### PT #### [facility] [address] [place] [address] MCH (RBC) [Entitic mass] 34.0 pg High 25.7-32.2 [facility] Comment on above: Performed By: #### PT #### [facility] [address] [place] [address] MCHC (RBC) [Mass/Vol] 35.0 % Normal 32.3-36.5 [facility] Comment on above: Performed By: #### PT #### [facility] [address] [place] [address] MCV (RBC) [Entitic vol] 97.1 fL High 83.2-95.6 [facility] Comment on above: Performed By: #### PT #### [facility] [address] [place] [address] Platelet mean volume (Bld) 11.2 fL Normal 8.7-12.0 [facility] [Entitic vol] Comment on above: Performed By: #### PT #### [facility] [address] [place] [address] Platelets (Bld) [#/Vol] 70 thou/cmm Low 141-365 [facility] Comment on above: Result Comment: Geni dotson agrees with platelet count Performed By: #### PT #### [facility] [address] [place] [address] RBC (Bld) [#/Vol] 3.74 mil/cmm Low 4.63-6.08 [facility] Comment on above: Performed By: #### PT #### [facility] [address] [place] [address] RDW SD 44.6 fl Normal 36.1-45.[address] [facility] Comment on above: Performed By: #### PT #### [facility] [address] [place] [address] WBC (Bld) [#/Vol] 4.78 thou/cmm Normal 4.23-9.07 [facility] Comment on above: Performed By: #### PT #### [facility] [address] [place] [address] MDRD GFR on 06-20-20 GFR/1.73 sq M predicted mL/min/{1.73_m2} Normal >60mL/min/1.7 3m2 [facility] among non-blacks MDRD System (S/P/Bld) [Vol rate/Area] Comment on above: Result Comment: If the patie nt is , multiply the result by 1.210. Performed By: #### GFR #### [facility] [address] [place], [place] [address] PROGRESS on 06-20-20 PROGRESS HNO ID: [id number] Normal [place] Author: Shelbi Downey [facility] Service: General Surgery Med ical Author Type: [...] on Weekends and Holidays, please page [phone] if in ICU or [phone] if on RNF. SUBJECTIVE: ERICH, patient articulate [...] - 06/20/20 0659 06/20/20699 - 0659 Shift 1391-9662 7238-7304 8988-7663 24 Hour Total 00 -1458 3997-0477 1313-6777 24 Hour Total INTAKE PO 240 600 840 240 240 PO 240 600 840 240 240 Shift Total 240 600 840 240 240 OUTPUT Urine 350 908 850 0597 500 500 Void (ml) 350 513 618 3923 500 500 Urine Incontinence/Not Saved 1 x 1 x Shift Total 350 652 905 6302 500 500 Weight (kg) 68.5 68.5 68.5 [...] h/o chronic alcohol abuse pres ents to [facility] with a subdural hematoma?s/p?fall from his porch. [...] on Weekends and Holidays, please page [phone] if in ICU or [phone] if on RNF. Basic Metabolic Panel on 06-19-2020 Anion gap [Moles/Vol] 11 mmol/L Normal 9-18 [facility] Comment on above: Performed By: #### CMP #### [facility] [address] [place], [place] [address] Calcium [Mass/Vol] 9.2 mg/dL Normal 8.5-10.2 [facility] Comment on above: Performed By: #### CMP #### [facility] [address] [place], [place] [address] Chloride [Moles/Vol] 101 mmol/L Normal 97-105 [facility] Comment on above: Performed By: #### CMP #### [facility] [address] [place], [place] [address] CO2 Blood 25 mmol/L Normal 22-[address] [facility] Comment on above: Performed By: #### CMP #### [facility] [address] [place], [place] [address] Creatinine [Mass/Vol] 0.52 mg/dL Low 0.73-1.22 [facility] Comment on above: Performed By: #### CMP #### [facility] [address] [place], [place] [address] Glucose [Mass/Vol] 106 mg/dL High 74-99 [facility] Comment on above: Result Comment: The [place] Diabetes Association (ADA) provides guidance for cutoff [...] Standards of Medical Care in Diabetes 2016; [place] [employer] Association. Diabetes Care. 2016;39(Suppl 1). Performed By: #### CMP #### [facility] [address] [place] [address] Potassium [Moles/Vol] see below Normal 3.7-5.1 [facility] Comment on above: Result Comment: Unable to as say. Specimen Hemolyzed Performed By: #### CMP #### [facility] [address] [place] [id number] Sodium [Moles/Vol] 137 mmol/L Normal 136-144 [facility] Comment on above: Performed By: #### CMP #### [facility] [address] [place], [place] [address] Urea nitrogen [Mass/Vol] 8 mg/dL Low 9-24 [facility] Comment on above: Performed By: #### CMP #### [facility] [address] [place], [place] [address] CASE MANAGEM on 06-09 CASE MANAGEM HNO ID: [id number] Normal [facility] Author: Maggy (Sw) Isra Ce nter Service: ? Author Type: Unhairing Inspector Type: Care Mgt Progress Note Filed: 06/19/2020 9:35 AM Note Text: CARE MANAGEMENT PROGRESS NOTE SERVICE DATE: 06/19/2020 SERVICE TIME: 9:29 AM LOS: 2 days Needs Prior to Discharge: Precertification;Discharge T ransportation Chart reviewed. Pt CIWA score increased overnight and pt now in soft restraints and has received Ativan. Pt attempted to le ave AMA and was experiencing visual hallucinations. [facility] has accepted and will start precert today a nticipating it will be back on Monday or Monday. Plan at this time is [facility] if pt still agreeable once mental status clears and withdrawal symptoms improve. SIGNATURE: WILLIAM Quiroga PATIENT NAME: Meryl santana DATE: June 19, 2020 TIME: 9:29 AM PAGER/CONTACT #: [phone] CASE MANAGEM HNO ID: [id number] Normal [place] [facility] Author: Maggy Mejia (Sw) nter Service: ? Author Type: Unhairing Inspector Type: Care Mgt Progress Note Filed: 06/19/2020 12:28 PM Note Text: CARE MANAGEMENT PROGRESS NOTE SERVICE DATE: 06/19/2020 SERVICE TIME: 12:09 PM LOS: 2 days Needs Prior to Discharge: Accepting Facility;Precertif ication;Discharge Transportation;Bed Availability;To Be Determined Received call from Ingrid at [facility] who reports the medical imaging technologist has denied pt's acceptance due to frequent [facility] ED visits for alcohol intoxication and falls/head injuries. Per Ingrid, the m edical director does not think he will stay inpatient and/or follow-up or c omply with his care appropriately. Spoke with pt's Mother Maury Ogden [phone] who is pt's NOK. Discussed AR vs. SNF and pt's ambivalence about placem ent. Sent Maury a choice list for SNF so she can review choices and assi st pt once his mental status improves. Maury reports she was attempting to get in touch wit h pt's disability research instructor but pt could not remember the name and she has been unsuccessful in cold searching. Plan: Await improvement in mental status for dispo russel nning with pt. Anticipate SNF placement. SIGNATURE: WILLIAM Quiroga PATIENT NAME: Meryl santana DATE: June 19, 2020 TIME: 12:09 PM PAGER/CONTACT #: [phone] Hemogram on 06-19-20 20 Erythrocyte distribution width 13.1 % Normal 11.6-14.4 [facility] (RBC) [Ratio] Comment on above: Performed By: #### CMP #### [facility] [address] [place] [address] Hematocrit (Bld) [Volume fraction] 36.2 % Low 40.1-5 1.0 [facility] Comment on above: Performed By: #### CMP #### [facility] [address] [place] [address] Hemoglobin (Bld) [Mass/Vol] 12.6 g/dL Low 13.7-17.5 [facility] Comment on above: Performed By: #### CMP #### [facility] [address] [place], [place] [address] MCH (RBC) [Entitic mass] 34.1 pg High 25.7-32.2 [facility] Comment on above: Performed By: #### CMP #### [facility] [address] [place], [place] [address] MCHC (RBC) [Mass/Vol] 34.8 % Normal 32.3-36.5 [facility] Comment on above: Performed By: #### CMP #### [facility] [address] [place], [place] [address] MCV (RBC) [Entitic vol] 98.1 fL High 83.2-95.6 [facility] Comment on above: Performed By: #### CMP #### [facility] [address] [place], [place] [address] Platelet mean volume (Bld) 12.0 fL Normal 8.7-12.0 [facility] [Entitic vol] Comment on above: Performed By: #### CMP #### [facility] [address] [place], [place] [address] Platelets (Bld) [#/Vol] 56 thou/cmm Low 141-365 [facility] Comment on above: Result Comment: Smear jovanni melendez tech agrees with platelet count Performed By: #### CMP #### [facility] [address] [place] [address] RBC (Bld) [#/Vol] 3.69 mil/cmm Low 4.63-6.08 [facility] Comment on above: Performed By: #### CMP #### [facility] [address] [place] [address] RDW SD 46.2 fl High 36.1-45.8 [facility] Comment on above: Performed By: #### CMP #### [facility] [address] [place] [address] WBC (Bld) [#/Vol] 5.07 thou/cmm Normal 4.23-9.07 [facility] Comment on above: Performed By: #### CMP #### [facility] [address] [place] [address] Magnesium Blood on 0 06-19-2020 Magnesium [Mass/Vol] 1.7 mg/dL Normal 1.7-2.3 [facility] Comment on above: Performed By: #### CMP #### [facility] [address] [place] [address] NURSING PROG on 06-09 NURSING HNO ID: [id number] Normal [place] PROG Author: Senait StephensonRn) MANDY Brandon General Service: Nursing Medical Author Type: Registered Nurse Center Type: Nursing Progress Note Filed: 06/19/2020 1:28 AM Note Text: Nursing Progress Note Patient Name: Meryl Ogden Patient Location: [id number] Daily Note: Patient attempting to get out [...] was completed by: Senait Brandon, RN 2300: Odd Bundle Worker, Anabelle, up to see patient. Multiple at [...] to be primary contact. NURSING HNO ID: [id number] Normal [place] PROG Author: Senait (Rn) MANDY Brandon General Service: Nursing Medical Author Type: Registered Nurse Center Type: Nursing Progress Note Filed: 06/18/2020 11:57 PM Note Text: Nursing Progress: Topic: RESTRAINT NON-VIOLENT PATIENT NAME: Meryl Ogden PATIENT LOCATION: [place] [address] [address] The patient demonstrates Confusion, Lack of Understand ing/Ability to Comply with Safety Directions, Impulsive Behavior, [place] bility to be Redirected, Inability to Retain [...] Low/Lo cked Position, Call Light Within Reach, Bun Machine Operator/Sitter, Diversion Activi ties, Gauze Wrap/Sleeve IV Site, [...] PM Senait Brandon RN NURSING HNO ID: [id number] [facility] Author: Gracie (Rn) MANDY Dolan General Service: ? Medical Author Type: Registered Nurse Center Type: Nursing Progress Note Filed: 06/19/2020 1:45 PM Note Text: Nursing Progress: Topic: RESTRAINT NON-VIOLENT PATIENT NAME: Meryl Ogden PATIENT LOCATION: [place] [address] [address] The patient demonstrates Confusion, Lack of Understand [...] Low/Lo cked Position, Call Light Within Reach, Bun Machine Operator/Sitter, Diversion Activi ties, Gauze Wrap/Sleeve IV Site, [...] AM Gracie Dolan RN NURSING HNO ID: [id number] [facility] Author: Gracie (Rn) MANDY Dolan General Service: ? Medical Author Type: Registered Nurse Center Type: Nursing Progress Note Filed: 06/19/2020 3:27 PM Note Text: Nursing Progress Note Patient Name: Meryl Ogden Patient Location: [place] [address] [address]- RN removed restraints for patient to feed [...] on 06-09 PLAN OF CARE HNO ID: [id number] [facility] Author: Joey Bearden Service: General Surgery Author Type: Resident Type: Plan of Care Filed: 06/18/2020 10:40 PM Note Text: S: Was paged by nurse that patient was getting dressed and was planning to leave AMA. Patient was confused and alerted. He had a CIWA score of 16. He was [id number]. Patient had pulled out 2 IVs. O: [...] PGY-1 PROGRESS on 06-19-20 PROGRESS HNO ID: [id number] Normal [place] Author: Joey (Res) Suleiman vance Service: General [...] and on Weekends and Holidays, please page [phone] if in ICU or 4134 if on RNF. SUBJECTIVE: Overnight the patient [...] he was in a rock room in [place]. He states he did not know who he was shira santana stated today was 1973. 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 While pointing to the TV shira santana [...] 0659 06/19/20 07 - 09/27 0659 Shift 8107-9499 3868-5833 1731-7241 24 Hour Total 0700 -1459 5356-0152 3957-8056 24 Hour Total INTAKE PO 600 240 40 880 PO 600 240 40 880 Shift Total 600 240 40 880 OUTPUT Urine 900 516 471 5605 Void (ml) 900 448 854 7749 Urine Incontinence/Not Saved 1 x 1 x Shift Total 900 956 096 3062 Weight (kg) 68.5 68.5 68.5 68.5 68.5 [...] h/o chronic alcohol abuse pres ents to [facility] with a subdural hematoma s/p fall from [...] on Weekends and Holidays, please page [phone] if in ICU or 2172 if on RNF. THERAPY NT on 2019 THERAPY NT HNO ID: [id number] Normal Surekha stark Author: Eva (Pt) [facility] Service: Physical Therapy Author Type: Physical Therapist Type: Therapy (PT/OT/Speech/Resp) Filed: 06/19/2020 2:35 PM Note Text: Physical Therapy Treatment SERVICE DATE: 06/19/2020 SERVICE TIME: 1359 to 1419 ROOM: [place] [address] Recommended Discharge Disposition: Acute Rehab Recommended Discharge [...] (generalized);Unsteadiness on feet Interventions Provided: Therapeutic Activity (50530) Therapeutic Activity (95816) Treatment Minutes: 20 1 unit Skilled Intervention(s): [...] Anion gap [Moles/Vol] 9 mmol/L Normal 9-18 [facility] Comment on above: Performed By: #### CMP #### [facility] [address] [place], [place] [address] Calcium [Mass/Vol] 8.3 mg/dL Low 8.5-10.2 [facility] Comment on above: Performed By: #### CMP #### [facility] [address] [place], [place] [address] Chloride [Moles/Vol] 95 mmol/L Low 97-105 [facility] Comment on above: Performed By: #### CMP #### [facility] [address] [place], [place] [address] CO2 Blood 30 mmol/L Normal 22-[address] [facility] Comment on above: Performed By: #### CMP #### [facility] [address] [place], [place] [address] Creatinine [Mass/Vol] 0.56 mg/dL Low 0.73-1.22 [facility] Comment on above: Performed By: #### CMP #### [facility] [address] [place], [place] [address] Glucose [Mass/Vol] 110 mg/dL High 74-99 [facility] Comment on above: Result Comment: The [place] Diabetes Association (ADA) provides guidance for cutoff [...] Standards of Medical Care in Diabetes 2016; [place] Diabetes Association. Diabetes Care. 2016;39(Suppl 1). Performed By: #### CMP #### [facility] [address] [place] [address] Potassium [Moles/Vol] 3.3 mmol/L Low 3.7-5.1 [facility] Comment on above: Performed By: #### CMP #### [facility] [address] [place] [address] Sodium [Moles/Vol] 134 mmol/L Low 136-144 [facility] Comment on above: Performed By: #### CMP #### [facility] [address] [place], [place] [address] Urea nitrogen [Mass/Vol] 7 mg/dL Low 9-24 [facility] Comment on above: Performed By: #### CMP #### [place] [id number] CASE MANAGEM on 06-09 CASE MANAGEM HNO ID: [id number] Normal [facility] Author: Maggy Dhaliwal (Sw) [facility] Service: ? 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 No Are There Practices or Beliefs That May Affect or Infl uence Care? No, Patient/Film Examiner Denies Patient Strengths/Protective Factors: Able to Communicate [...] Yes - Do you ever drink an eye-daylight driller in the morning to re lieve shakes? 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 Yes OBSTACLES TO TREATMENT/POST-DISCHARGECHALLENGES: Limited/No Income Multiple Psychosocial Stressors Substance Abuse Transportation Difficulties Met with pt at bedside. Pt was cooperative and pleasan t. Pt reports he struggled heavily with drinking starting in as his marriage fell apart. Pt states he is active with a t herapist at [facility] in [place] and plans to continue with this agency. [...] as evidenced by forgetting his is in [place] and where his children live. Pt was able to eventually recollect that he and his children live in [place], [place] and he is currently in [place]. 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 He has been relying on his parents to assist wit h finances and states he has no concerns at this time because he has his parents to lean on. Pt declined any financial resources. Pt states he has some very good friends who live in [place], and two friends John caceres lincoln Hollis, [...] continue to follow. CASE MANAGEM HNO ID: [id number] Dimitrios stark Author: Maggy (William) Isra [facility] Service: ? Author Type: Unhairing Inspector Type: Care Mgt Progress Note Filed: 06/18/2020 2:09 PM Note Text: CARE MANAGEMENT PROGRESS NOTE SERVICE DATE: 06/18/2020 SERVICE TIME: 2:07 PM LOS: 1 day Stendal of Choice Given: Yes Level of Care Discussed: Inpatient Rehab Facility Financial Disclosure Provided: Yes Provider List: Rehab Facility Provider list within the patient's requested geographi c area shared with the patient/family: Yes within: 25 miles of zip code: [address] Quality and resource use metrics shared with the patie nt that are relevant to the patient's goals of care and treatment preferenc es:: Yes Metrics: Functional Status;Cognitive Status;Resource U se;Discharge to [facility] Discussed AR with pt and facilities in [facility]. P t agreeable to referral to [facility]. Referral placed. SIGNATURE: WILLIAM Quiroga PATIENT NAME: Meryl santana DATE: June 18, 2020 TIME: 2:07 PM PAGER/CONTACT #: [phone] Hemogram on 06-18-20 20 Erythrocyte distribution width 12.6 % Normal 11.6-14.4 [facility] (RBC) [Ratio] Comment on above: Performed By: #### CMP #### [place] [address] Hematocrit (Bld) [Volume fraction] 35.2 % Low 40.1-5 1.0 [facility] Comment on above: Performed By: #### CMP #### [place] [address] Hemoglobin (Bld) [Mass/Vol] 12.1 g/dL Low 13.7-17.5 [facility] Comment on above: Performed By: #### CMP #### [place] [address] MCH (RBC) [Entitic mass] 33.0 pg High 25.7-32.2 [facility] Comment on above: Performed By: #### CMP #### [facility] [address] [place] [address] MCHC (RBC) [Mass/Vol] 34.4 % Normal 32.3-36.5 [facility] Comment on above: Performed By: #### CMP #### [place] [address] MCV (RBC) [Entitic vol] 95.9 fL High 83.2-95.6 [facility] Comment on above: Performed By: #### CMP #### [facility] [address] [place], [place] [address] Platelet mean volume (Bld) 10.8 fL Normal 8.7-12.0 [facility] [Entitic vol] Comment on above: Performed By: #### CMP #### [facility] [address] [place], [place] [address] Platelets (Bld) [#/Vol] 51 thou/cmm Low 141-365 [facility] Comment on above: Performed By: #### CMP #### [facility] [address] [place], [place] [address] RBC (Bld) [#/Vol] 3.67 mil/cmm Low 4.63-6.08 [facility] Comment on above: Performed By: #### CMP #### [facility] [address] [place], [place] [address] RDW SD 44.4 fl Normal 36.1-45.[address] [facility] Comment on above: Performed By: #### CMP #### [facility] [address] [place], [place] [address] WBC (Bld) [#/Vol] 4.67 thou/cmm Normal 4.23-9.07 [facility] Comment on above: Performed By: #### CMP #### [facility] [address] [place], [place] [address] NURSING PROG on 06-09 NURSING PROG HNO ID: [id number] Normal [facility] Author: Jane (Rn) MANDY Cohen Service: Orthopaedic Surgery Author Type: Registered Nurse Type: Nursing Progress Note Filed: 06/18/2020 7:45 PM Note Text: Patient now with CIWA score of 16. Ativan 1 mg PO give n per orders. Pt is confused, [place] to place and time. Pt also stated that the ceiling looked like the floor . Noted mild tremors of hands. Pt pulled out IV's x 2, stating the tape was itching me, so I thought it was the best thing to do. Pt has set-off bed alarm multiple times during this shift, stating I thought y ou were calling me. Nursing shuttle fitting supervisor notified that patient may need a si tter for the maintenance mechanic 2nd shift. PLAN OF CARE on 06-09 PLAN OF CARE HNO ID: [id number] [facility] Author: Simran Lyons) Katharine Orgas Service: Neurosurgery Author Type: Physician Paper Coating Supervisor Type: Plan of Care Filed: 06/18/2020 5:04 PM Note Text: Neurosurgery 06/18/2020 Imaging reviewed with Hany. CT stable. Follow up ap pointment requested in [address] Leach. Will SO. Simran Alcantar PA-C Pager: [phone] PROGRESS on 06-18-20 PROGRESS HNO ID: [id number] [facility] Author: Shashank Hernandez Orgas Service: General Surgery Author Type: Physician Type: [...] 06/17/[address] - 06/18/2065806/18/20699 - 08/28 0659 Shift 5265-3983 7425-3724 3747-5304 24 Hour Total 699 -1458 5552-6009 7646-6988 24 Hour Total INTAKE PO 360 240 600 PO 360 240 600 Shift Total 360 240 600 OUTPUT Urine 850 120 795 7644 Void (ml) 552 162 0255 Output ([REMOVED] External Collection Device 06/28 0300 06/17/20 1330) 850 850 Emesis 100 100 Emesis (ml) 100 100 Shift Total 950 436 790 4752 Weight (kg) 68 68 68.5 68.5 68.5 [...] h/o chronic alcohol abuse pres ents to [facility] with a subdural hematoma s/p fall from [...] on Weekends and Holidays, please page [phone] if in ICU or 2940 if on RNF. Attending Note I evaluated [...] on 06-18-2020 MRSA PCR SEE BELOW Normal [facility] Comment on above: Result Comment: Negative for MRSA by PCR. Performed By: #### CMP #### [place] [address] S aureus Spec Source NASAL Normal [facility] Comment on above: Performed By: #### CMP #### [place] [address] Staph aureus PCR SEE BELOW Abnormal [facility] Comment on above: Result Comment: Positive for Staphylococcus aureus by PCR.(*) Performing Laboratory: [facility] [address] [place] [address] Performed By: #### CMP #### [facility] [address] [place], [place] [address] THERAPY NT on 2019 THERAPY NT HNO ID: [id number] Normal Surekha stark Author: Corbin (Ccc-Cryptologic Supervisor) Mumtaz CCC/PROFESSOR OF GRAPHIC DESIGN [facility] Service: Speech/Swallow Author Type: Speech Language Pathologist Type: Therapy (PT/OT/Speech/Resp) Filed: 06/18/2020 12:21 PM Note Text: Speech Therapy Speech Evaluation SERVICE DATE: 06/18/2020 SERVICE TIME: 1135 to 1205 ROOM: [place] [address] Nursing Recommendations: Reinforce use of cognitive-communication strategies [...] dysfun ctions Interventions Provided: Speech Language Eval (85049) $ Speech Language Eval (08966) Billed Units: 1 unit Total Treatment Time (minutes): 30 SUBJECTIVE: Current Hospital Course: Chart reviewed; Diagnosis: Subdural hematoma Reason for admit: Patient presents with: Trauma Evaulation: Sent from [facility] for subdural azucena anisha and trauma consult. Patient was found on the ground on his porch with no recolection of how he got there. He is a daily drinker and was giv en ativan prior to arrival. No complaints at this time. Meryl is a 49 year old male who was brought her from [facility] ED for a subdural hematoma. He was [...] this therapy evaluation/treatment . SIGNATURE: Corbin Pandya CCC-PROFESSOR OF GRAPHIC DESIGN PATIENT NAME: Adams Ogden DATE: June 18, 2020 TIME: 12:16 PM ABO/Rh Confirmation on 06-17-2020 ABO group Nom (Bld) B Normal [facility] Comment on above: Performed By: #### ALCO3 ### # [place] [address] RH Type Positive Normal [facility] Comment on above: Performed By: #### ALCO3 ### # [place] [address] Activated PTT on aPTT Coag (Bld) [Time] 27.9 s Normal 23.0-32.4 [facility] Comment on above: Result Comment: Unfractionat [...] AP TT reagent in use throughout the [facility]. Performed By: #### ALCO3 ### # [facility] [address] [place] [address] Alcohol, Serum on Alcohol, Serum 47.0 mg/dL High < 11 [facility] Comment on above: Performed By: #### ALCO3 ### # [place] [id number] Basic Metabolic Panel on 09-09-2020 Anion gap [Moles/Vol] 15 mmol/L Normal 9-18 [facility] Comment on above: Performed By: #### BMP #### [facility] [address] [place], [place] [address] Calcium [Mass/Vol] 8.0 mg/dL Low 8.5-10.2 [facility] Comment on above: Performed By: #### BMP #### [facility] [address] [place], [place] [address] Chloride [Moles/Vol] 96 mmol/L Low 97-105 [facility] Comment on above: Performed By: #### BMP #### [facility] [address] [place], [place] [address] CO2 Blood 26 mmol/L Normal 22-30 [facility] Comment on above: Performed By: #### BMP #### [facility] [address] [place], [place] [address] Creatinine [Mass/Vol] 0.50 mg/dL Low 0.73-1.22 [facility] Comment on above: Performed By: #### BMP #### [facility] [address] [place], [place] [address] Glucose [Mass/Vol] 67 mg/dL Low 74-99 [facility] Comment on above: Result Comment: The [place] Diabetes Association (ADA) provides guidance for cutoff [...] Standards of Medical Care in Diabetes 2016; [place] Diabetes Association. Diabetes Care. 2016;39(Suppl 1). Performed By: #### BMP #### [facility] [address] [place], [place] [address] Potassium [Moles/Vol] see below Normal 3.7-5.1 [facility] Comment on above: Result Comment: Unable to as say. Specimen Hemolyzed Performed By: #### BMP #### [facility] [address] [place], [place] [address] Sodium [Moles/Vol] 137 mmol/L Normal 136-144 [facility] Comment on above: Performed By: #### BMP #### [facility] [address] [place], [place] [address] Urea nitrogen [Mass/Vol] 5 mg/dL Low 9-24 [facility] Comment on above: Performed By: #### BMP #### [facility] [address] [place], [place] [address] CASE MANAGEM on CASE MANAGEM HNO ID: [id number] Normal [facility] Author: Belén Canela) Elodia Gutierrez Service: Social Work Author Type: Unhairing Inspector Type: Care Mgt Progress Note Filed: 06/17/2020 4:21 PM Note Text: CARE MANAGEMENT PROGRESS NOTE SERVICE DATE: 06/17/2020 SERVICE TIME: 4:04 PM LOS: 0 days Lengthy phone conversation with pt mother, Jacqueline Rodriguez ). Pt mother and father live in [place] at [facility]. Mother reports pt does not have income [...] 17, 2020 TIME: 4:04 PM PAGER/CONTACT #: [phone] CASE MGT INIT PRECIOUS on 06-17-2020 CASE MGT INIT PRECIOUS HNO ID: [id number] Normal [facility] Author: Belén Canela) [facility] Service: Social Work Author Type: Unhairing Inspector Type: Care Mgt Initial Assessment Filed: 06/17/2020 3:42 PM Note Text: CARE MANAGEMENT: ASSESSMENT AND DISCHARGE PLAN SERVICE DATE: June 17, 2020 SERVICE TIME: 3:31 PM PRIMARY CARE PHYSICIAN: Yoko Glover MD ADMISSION STATUS: Inpatient Needs Prior to Discharge: To Be Determined MEDICAL: [facility] MEDICAID 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 No FREEDOM OF CHOICE EXPLAINED: Stendal of Choice Given: Yes Level of Care [...] his life. +PCP (Dr. Elmer Bravo - [facility]). Discussed plan of care and recommendation for acute re hab. Pt refusing stating he needs to d/c home. Declined conversation at this time re: home PT/OT. (PT 6 Clicks Score 14; OT 6 Clicks Score 14). Completed CAGE assessment with pt stating hx of substa nce use tx at [facility] in [place]. Discussed assessment and treatment supports available; Pt declined additional resource information at this ti me.. Education provided on cessation of use to encourage healthy life patterns. Transitional care plan: tbd; Home with [facility] SIGNATURE: DRE Whitaker PATIENT NAME: Meryl Ogden DATE: June 17, 2020 TIME: 3:31 PM PAGER/CONTACT #: [phone] CONSULT on 0 CONSULT HNO ID: [id number] Dimitrios [facility] Medical [facility]: [facility] Service: General Surgery Author Type: Resident Type: Consults Filed: 06/17/2020 12:02 AM Note Text: CONSULT: SICU Surgery Service SERVICE DATE: 06/16/2020 SERVICE TIME: 11:04 PM REASON FOR CONSULT: subdural hematoma REQUESTING PHYSICIAN: ED Subjective 49 year old male presents to [facility] as a transfer from [facility]. He apparently fell at home on his [...] June 16, 2020 TIME: 11:04 PM Pager: [phone] CONSULT HNO ID: [id number] Normal [facility] Medical Author: Yonatan Smith Service: Neurosurgery [...] head bleed. He was admitted to a long filler cigar roller machine care facili at that time and required [...] June 16, 2020 TIME: 11:29 PM Pager: [phone] I reviewed the pertinent patient history and examinati on performed by PA/SUPERVISOR TESTING and examined the patient myself on June 17, 2020 Unless indicated below I agree with the plan of care connor Leach MD CT BRAIN WO IVCON on 06-17-2020 CT BRAIN WO IVCON Final Report Normal [facility] [employer] DATE OF EXAM: Jun 17 2020 5:07AM [...] base and imaged soft tissues are unremarkable. Consumer Attorney (topogram) images: No additional findings. IMPRESSION: Unchanged size of acute on chronic extra-axial hemorrh age along right cerebral convexity measuring 8 mm in thickness. Slight ly increased dependent hyperdense component near vertex is likely r edistribution of acute hemorrhage. No CT evidence of acute cortical infarct. Chronic small vessel ischemic white matter disease and diffuse cerebral volume loss. Oyster Planter: PSCB Transcribe Date/Time: Jun 17 2020 7:40A Dictated by : CARLOS PELAEZ MD This examination was interpreted and the report review ed and electronically signed by: CARLOS PELAEZ MD on Jun 17 2020 7:49AM EST CT BRAIN WO IVCON Final Report Normal [facility] DATE OF EXAM: Jun 17 2020 4:03PM [...] base and imaged soft tissues are unremarkable. Consumer Attorney (topogram) images: No additional findings. IMPRESSION: Unchanged acute on chronic extra-axial hemorrhages sophie ng right cerebral convexity, with minimal mass effect on right frontal l obe. No evidence of midline shift. Oyster Planter: PSCB Transcribe Date/Time: Jun 18 2020 7:24A Dictated by : CARLOS PELAEZ MD This examination was interpreted and the report review ed and electronically signed by: CARLOS PELAEZ MD on Jun 18 2020 7:31AM EST Comprehensive Metabolic Panel on 06-17-2020 Albumin [Mass/Vol] 4.0 g/dL Normal 3.9-4.9 [facility] Comment on above: Performed By: #### CMP #### [facility] [address] [place], [place] [address] ALP [Catalytic activity/Vol] 74 U/L Normal 38-113 [facility] Comment on above: Performed By: #### CMP #### [facility] [address] [place], [place] [address] ALT [Catalytic activity/Vol] 45 U/L Normal 10-54 [facility] Comment on above: Performed By: #### CMP #### [facility] [address] [place], [place] [address] Anion gap [Moles/Vol] 14 mmol/L Normal 9-18 [facility] Comment on above: Performed By: #### CMP #### [facility] [address] [place], [place] [address] AST [Catalytic activity/Vol] 140 U/L High 14-40 [facility] Comment on above: Performed By: #### CMP #### [facility] [address] [place], [place] [address] Bilirubin [Mass/Vol] 0.7 mg/dL Normal 0.2-1.3 [facility] Comment on above: Performed By: #### CMP #### [facility] [address] [place], [place] [address] Calcium [Mass/Vol] 7.9 mg/dL Low 8.5-10.2 [facility] Comment on above: Performed By: #### CMP #### [facility] [address] [place], [place] [address] Chloride [Moles/Vol] 98 mmol/L Normal 97-105 [facility] Comment on above: Performed By: #### CMP #### [facility] [address] [place], [place] [address] CO2 Blood 28 mmol/L Normal 22-30 [facility] Comment on above: Performed By: #### CMP #### [facility] [address] [place], [place] [address] Creatinine [Mass/Vol] 0.48 mg/dL Low 0.73-1.22 [facility] Comment on above: Performed By: #### CMP #### [facility] [address] [place], [place] [address] Glucose [Mass/Vol] 72 mg/dL Low 74-99 [facility] Comment on above: Result Comment: The [place] Diabetes Association (ADA) provides guidance for cutoff [...] Standards of Medical Care in Diabetes 2016; [place] [employer]. Diabetes Care. 2016;39(Suppl 1). Performed By: #### CMP #### [facility] [address] [place], [place] [address] Potassium [Moles/Vol] 3.0 mmol/L Low 3.7-5.1 [facility] Comment on above: Performed By: #### CMP #### [facility] [address] [place], [place] [address] Protein [Mass/Vol] 6.8 g/dL Normal 6.3-8.0 [facility] Comment on above: Performed By: #### CMP #### [facility] [address] [place], [place] [address] Sodium [Moles/Vol] 140 mmol/L Normal 136-144 [facility] Comment on above: Performed By: #### CMP #### [facility] [address] [place], [place] [address] Urea nitrogen [Mass/Vol] 6 mg/dL Low 9-24 [facility] Comment on above: Performed By: #### CMP #### [facility] [address] [place], [place] [address] ED NOTE on 0 ED NOTE HNO ID: [id number] [facility] Author: Kwasi (Rn) MANDY Rivera Service: Emergency Medicine Author Type: Registered Nurse Type: ED Notes Filed: 06/17/2020 12:16 AM Note Text: Patient swabbed for COVID and sent to lab ED PROV NOTE on ED PROV NOTE HNO ID: [id number] [facility] Author: DO Matt Negro Service: Emergency Medicine Author Type: Physician Type: ED Provider Notes Filed: 06/17/2020 12:30 AM Note Text: ED Provider Note Patient Name: Meryl Ogden SERVICE DATE: 06/16/20 History Patient presents with: Trauma Evaulation: Sent from [facility] for subdural azucena anisha and trauma consult. Patient was found on the ground on his porch with no recolection of how he got there. He is a daily drinker and was giv en ativan prior to arrival. No complaints at this time. SHAMIR Haji is a 49 year old male who was brought her from [facility] ED for a subdural hematoma. He was found on his front porch [facility] by his friend. He remember sitting on [...] 49 year old male who presented to [facility] ED from [facility] for a subdural hematoma following and unwitnessed but suspected trama. Initial workup/management includes the following: Labs: CBC, CMP, GFR, lipase, Mg, ETOH level, Urine tox , PT/INR, COVID Meds: ativan, Zofran, fentanyl Imaging: CT brain, CT neck, CXR done at [facility] EKG: Normal At this time, the decision was made to admit the patie nt to the ICU for further management. I discussed this with the patient, who was agreeable to the plan. The patient was admitted to Dr. Wang in stable condition. SIGNATURE: Willow Daugherty (Hussein) MD [facility]wan Resident 06/16/20 9353 I performed a history and physical examination of the patient and discussed the management with the resident. I reviewed the resident's note and agree with the documented findings and plan of car e. Harini Nolen DO 06/17/20 0030 ED PROV NOTE HNO ID: [id number] Normal [facility] Author: Harini Nolen DO Center Service: Emergency [...] emergenc y department as a transfer from [facility] for trauma evaluation found to h ave [...] before the episode. He was seen in [facility] where he had laboratory studies done [...] PHYSICAL on 06-17-2020 HISTORY PHYSICAL HNO ID: [id number] Normal [facility] Author: Shelbi Savage [facility] Service: General Surgery Author Type: Resident Type: HANDP Filed: 06/17/2020 8:48 AM Note Text: TRAUMA SURGERY HANDP [facility] ARRIVAL DATE: 06/16/2020 ARRIVAL TIME: 2129 CATEGORY: Level 3 INJURY DATE: 06/16/2020 INJURY TIME: 1600 Subjective 49 year old male presents to [facility] as a transfer from [facility]. He apparently fell at home on his [...] the last 72 hour s. Invalid input(s): [facility] Assessment/Plan There are no active hospital problems to display for t his patient. 49 year old male with a h/o chronic alcohol abuse pres ents to [facility] with a subdural hematoma s/p fall from [...] on Weekends and Holidays, please page [phone] if in ICU or [phone] if on RNF. Hemogram on 06-17-20 20 Erythrocyte distribution width 13.0 % Normal 11.6-14.4 [facility] (RBC) [Ratio] Comment on above: Performed By: #### ALCO3 ### # [facility] [address] [place] [address] Erythrocyte distribution width 12.9 % Normal 11.6-14.4 [facility] (RBC) [Ratio] Comment on above: Performed By: #### CMP #### [place] [address] Hematocrit (Bld) [Volume fraction] 34.3 % Low 40.1-5 1.0 [facility] Comment on above: Performed By: #### ALCO3 ### # [place] [address] Hematocrit (Bld) [Volume fraction] 35.5 % Low 40.1-5 1.0 [facility] Comment on above: Performed By: #### CMP #### [place] [address] Hemoglobin (Bld) [Mass/Vol] 11.9 g/dL Low 13.7-17.5 [facility] Comment on above: Performed By: #### ALCO3 ### # [place] [address] Hemoglobin (Bld) [Mass/Vol] 12.2 g/dL Low 13.7-17.5 [facility] Comment on above: Performed By: #### CMP #### [address] [address] MCH (RBC) [Entitic mass] 33.6 pg High 25.7-32.2 [facility] Comment on above: Performed By: #### ALCO3 ### # [address] [address] MCH (RBC) [Entitic mass] 33.2 pg High 25.7-32.2 [facility] Comment on above: Performed By: #### CMP #### [facility] [address] [place] [address] MCHC (RBC) [Mass/Vol] 34.7 % Normal 32.3-36.5 [facility] Comment on above: Performed By: #### ALCO3 ### # [facility] [address] [place] [address] MCHC (RBC) [Mass/Vol] 34.4 % Normal 32.3-36.5 [facility] Comment on above: Performed By: #### CMP #### [facility] [address] [place] [address] MCV (RBC) [Entitic vol] 96.9 fL High 83.2-95.6 [facility] Comment on above: Performed By: #### ALCO3 ### # [facility] [address] [place] [address] MCV (RBC) [Entitic vol] 96.7 fL High 83.2-95.6 [facility] Comment on above: Performed By: #### CMP #### [facility] [address] [place] [address] Platelet mean volume (Bld) 11.2 fL Normal 8.7-12.0 [facility] [Entitic vol] Comment on above: Performed By: #### ALCO3 ### # [facility] [address] [place] [address] Platelet mean volume (Bld) 11.1 fL Normal 8.7-12.0 [facility] [Entitic vol] Comment on above: Performed By: #### CMP #### [facility] [address] [place] [address] Platelets (Bld) [#/Vol] 31 thou/cmm Critically low 141-365 [facility] Comment on above: Result Comment: Repeated AND verified Performed By: #### ALCO3 ### # [facility] [address] [place], [place] [address] Platelets (Bld) [#/Vol] 58 thou/cmm Low 141-365 [facility] Comment on above: Result Comment: Smear scanne d tech agrees with platelet count Performed By: #### CMP #### [facility] [address] [place] [address] RBC (Bld) [#/Vol] 3.54 mil/cmm Low 4.63-6.08 [facility] Comment on above: Performed By: #### ALCO3 ### # [facility] [address] [place] [address] RBC (Bld) [#/Vol] 3.67 mil/cmm Low 4.63-6.08 [facility] Comment on above: Performed By: #### CMP #### [facility] [address] [place] [address] RDW SD 46.3 fl High 36.1-45.8 [facility] Comment on above: Performed By: #### ALCO3 ### # [facility] [address] [place] [address] RDW SD 45.6 fl Normal 36.1-45.8 [facility] Comment on above: Performed By: #### CMP #### [facility] [address] [place] [address] WBC (Bld) [#/Vol] 4.96 thou/cmm Normal 4.23-9.07 [facility] Comment on above: Performed By: #### ALCO3 ### # [facility] [address] [place] [address] WBC (Bld) [#/Vol] 4.45 thou/cmm Normal 4.23-9.07 [facility] Comment on above: Performed By: #### CMP #### [facility] [address] [place] [address] Hemogram/Diff on Abs Immature Grans 0.02 thou/cmm Normal 0.00-0.05 [facility] Comment on above: Performed By: #### CBCD1 ### # [facility] [address] [place] [address] Abs Neut (ANC) 2.94 thou/cmm Normal 1.78-5.38 [facility] Comment on above: Performed By: #### CBCD1 ### # [facility] [address] [place] [address] Abs. Baso 0.06 thou/cmm Normal 0.01-0.08 [facility] Comment on above: Performed By: #### CBCD1 ### # [facility] [address] [place] [address] Abs. Candler 0.47 thou/cmm Normal 0.30-0.82 [facility] Comment on above: Performed By: #### CBCD1 ### # [facility] [address] [place] [address] Basophils/100 WBC (Bld) 1.3 % Normal [facility] Comment on above: Performed By: #### CBCD1 ### # [facility] [address] [place] [address] Eosinophils (Bld) [#/Vol] 0.07 thou/cmm Normal 0.04-0.54 [facility] Comment on above: Performed By: #### CBCD1 ### # [facility] [address] [place] [address] Eosinophils/100 WBC (Bld) 1.5 % Normal [facility] Comment on above: Performed By: #### CBCD1 ### # [facility] [address] [place] [address] Erythrocyte distribution width 13.2 % Normal 11.6-14.4 [facility] (RBC) [Ratio] Comment on above: Performed By: #### CBCD1 ### # [facility] [address] [place] [address] Hematocrit (Bld) [Volume fraction] 36.0 % Low 40.1-5 1.0 [facility] Comment on above: Performed By: #### CBCD1 ### # [facility] [address] [place] [address] Hemoglobin (Bld) [Mass/Vol] 12.3 g/dL Low 13.7-17.5 [facility] Comment on above: Performed By: #### CBCD1 ### # [facility] [address] [place] [address] Immature Grans 0.40 % Normal [facility] Comment on above: Performed By: #### CBCD1 ### # [facility] [address] [place], [place] [address] Lymphocytes (Bld) [#/Vol] 1.10 thou/cmm Normal 0.84-2.85 [facility] Comment on above: Performed By: #### CBCD1 ### # [facility] [address] [place], [place] [address] Lymphocytes/100 WBC (Bld) 23.6 % Normal [facility] Comment on above: Performed By: #### CBCD1 ### # [facility] [address] [place], [place] [address] MCH (RBC) [Entitic mass] 33.1 pg High 25.7-32.2 [facility] Comment on above: Performed By: #### CBCD1 ### # [facility] [address] [place] [address] MCHC (RBC) [Mass/Vol] 34.2 % Normal 32.3-36.5 [facility] Comment on above: Performed By: #### CBCD1 ### # [facility] [address] [place], [place] [address] MCV (RBC) [Entitic vol] 96.8 fL High 83.2-95.6 [facility] Comment on above: Performed By: #### CBCD1 ### # [facility] [address] [place], [place] [address] Monocytes/100 WBC (Bld) 10.1 % Normal [facility] Comment on above: Performed By: #### CBCD1 ### # [facility] [address] [place], [place] [address] Platelet mean volume (Bld) 11.1 fL Normal 8.7-12.0 [facility] [Entitic vol] Comment on above: Performed By: #### CBCD1 ### # [facility] [address] [place], [place] [address] Platelets (Bld) [#/Vol] 36 thou/cmm Critically low 141-365 [facility] Comment on above: Performed By: #### CBCD1 ### # [facility] [address] [place] [address] RBC (Bld) [#/Vol] 3.72 mil/cmm Low 4.63-6.08 [facility] Comment on above: Performed By: #### CBCD1 ### # [facility] [address] [place] [address] RDW SD 47.0 fl High 36.1-45.8 [facility] [employer] [employer] Comment on above: Performed By: #### CBCD1 ### # [facility] [address] [place] [address] Seg Neutrophil 63.1 % Normal [facility] Comment on above: Performed By: #### CBCD1 ### # [facility] [address] [place] [address] WBC (Bld) [#/Vol] 4.66 thou/cmm Normal 4.23-9.07 [facility] Comment on above: Performed By: #### CBCD1 ### # [facility] [address] [place] [address] Lipase Blood on Lipase Blood 37 U/L Normal 16-61 [facility] [employer] [employer] Comment on above: Performed By: #### LIP #### [facility] [address] [place] [address] Magnesium Blood on 0 06-17-2020 Magnesium [Mass/Vol] 1.2 mg/dL Low 1.7-2.3 [facility] Comment on above: Performed By: #### MAG #### [facility] [address] [place] [address] Magnesium [Mass/Vol] 1.9 mg/dL Normal 1.7-2.3 [facility] Comment on above: Performed By: #### ALCO3 ### # [facility] [address] [place] [address] PROGRESS on 06-17-20 PROGRESS HNO ID: [id number] Normal [facility] Author: Shashank Hernandez Orgas Service: General Surgery Author Type: Physician Type: Progress Notes Filed: 07/13/2020 8:17 AM Note Text: Trauma Surgery Progress Note SERVICE DATE: 06/17/2020 Trauma Service Pager: For questions or concerns Mon-Fri 6a-5p please page [phone]. After 5pm and on Weekends and Holidays, please page [phone] if in ICU or [phone] if on [...] 68 kg (150 lb) SpO2 99% B MS 18.75 kg/m? O2 Therapy: Room Air IANDO: Date 06/16/20699 - 06/17/20 0606/17/20699 - 07/28 0659 Shift [id number] 3460-8015 4107-5063 24 Hour Total 0700 -1459 6615-2692 4230-9045 24 Hour Total INTAKE IV 950 950 [...] h/o chronic alcohol abuse pres ents to [facility] with a subdural hematoma s/p fall from [...] on Weekends and Holidays, please page [phone] if in ICU or 2171 if on RNF. Attending Note I evaluated the patient and personally participated in the benjamin components on 06/17/2020 I agree with the resident's findings and plan as docum ented and have discussed the case and management of the patient's car e with the resident. Shashank Hernandez MD Delayed entry PROGRESS HNO ID: [id number] [facility] Author: [facility] Service: General Surgery Author Type: [...] 0659 06/17/20 07 - 07/28 0659 Shift 7980-5406 8075-3820 4261-1018 24 Hour Total 0700 -1459 9888-7165 1929-3445 24 Hour Total INTAKE IV 950 950 [...] with chronic alcohol abuse who presented to [facility] with a subd[facility] hemat[facility] course: 06/17 CT brain shows [...] components of this encounter with the [facility] ICU team. I discussed the management of [...] or SDU?: Yes, transfer to SDU or [facility] today Discharge Planning: To be determined SIGNATURE: Vidhya Wang MD PATIENT NAME: Meryl Ogden DATE: June 17, 2020 TIME: 10:12 AM PROGRESS HNO ID: [id number] Normal [facility] Medical Author: Simran Lyons) [facility] Service: Neurosurgery Author Type: Physician Paper Coating Supervisor Type: Progress Notes Filed: 06/17/2020 3:12 PM [...] serial CT Brain -Keppra for seizure prophylaxis -[facility] protocol -Pain control -Discussed with Dr. Leach Medication and Non-Pharmacologic VTE Prophylaxis/Antic oagulants 06/17/20 0145 vte pharmacologic prophylaxis contraindi cated ([place], [place]) 06/17/20 0145 pneumatic compression stockings ([place]) VTE Prophylaxis: VTE prophylaxis appropriate SIGNATURE: Simran Alcantar PA-C PATIENT NAME: Meryl Ogden DATE: June 17, 2020 TIME: 2:59 PM PAGER/CONTACT #: Pager: [phone] Pheresed Platelets o n 06-17-2020 Pheresed Plts unit 1 Done Normal [facility] Comment on above: Performed By: #### ALCO3 ### # [facility] [address] [place] [address] Phosphorous Blood on 06-17-2020 Phosphate [Mass/Vol] 2.9 mg/dL Normal 2.7-4.8 [facility] Comment on above: Performed By: #### ALCO3 ### # [facility] [address] [place], [place] [address] Protime on 0 INR Coag (PPP) [Relative time] 1.09 {INR} Normal 0.90-1.30 [facility] Comment on above: Result Comment: Vitamin K An tagonist (VKA) Therapeutic Range: INR 2 to 3 (Target INR of 2.5) Note: For patients treated w ith VKA drugs, such as warfarin, the [employer] 2012 Guideline recommends a therapeutic INR range of 2 to 3 (target INR of 2.5). This recommendation includes high -risk patients with antiphospholipid syndrome with previous arter ial or venous thromboembolism, current-generation mechanica l or bioprosthetic aortic heart valve replacement. Note: Patients with foundry equipment mechanic al aortic valve replacement and additional risk factors for thromboembolic events (atrial fibrillation, previous throm boembolism, LV dysfunction, hypercoagulable conditions) or an older generation mechanical AVR (i.e., ball in-Cage) or any mechanical MVR should have a INR therapeutic range of 2 .5 to 3.5 target INR of 3). Álvaro GH, et al. Chest 2012 ; 141:7S-47S Ada RA et al. [facility] 20 17; 70: 252-289 Performed By: #### PT #### [facility] [address] [place], [place] [address] INR Coag (PPP) [Relative time] 1.07 {INR} Normal 0.90-1.30 [facility] Comment on above: Result Comment: Vitamin K An tagonist (VKA) Therapeutic Range: INR 2 to 3 (Target INR of 2.5) Note: For patients treated w ith VKA drugs, such as warfarin, the [place] 2012 Guideline recommends a therapeutic INR range of 2 to 3 (target INR of 2.5). This recommendation includes high -risk patients with antiphospholipid syndrome with previous arter ial or venous thromboembolism, current-generation mechanica l or bioprosthetic aortic heart valve replacement. Note: Patients with foundry equipment mechanic al aortic valve replacement and additional risk factors for thromboembolic events (atrial fibrillation, previous throm boembolism, LV dysfunction, hypercoagulable conditions) or an older generation mechanical AVR (i.e., ball in-Cage) or any mechanical MVR should have a INR therapeutic range of 2 .5 to 3.5 target INR of 3). Álvaro SHEIKH, et al. Chest 2012 ; 141:7S-47S Ada PRICE et al. [facility] 20 17; 70: 252-289 Performed By: #### ALCO3 ### # [facility] [address] [place], [place] [address] PT Coag (PPP) [Time] 11.3 s Normal 9.7-13.0 [facility] Comment on above: Performed By: #### PT #### [facility] [address] [place] [address] PT Coag (PPP) [Time] 11.1 s Normal 9.7-13.0 [facility] Comment on above: Performed By: #### ALCO3 ### # [place] [address] Rapid, COVID 19 on 0 06-17-2020 Rapid, COVID 19 Negative Normal Negative [facility] Comment on above: Result Comment: This test castro s been authorized by the FDA under an Emergency Use Authorization (EUA). Performed By: #### RCOVD ### # [place] [address] THERAPY NT on 2019 THERAPY NT HNO ID: [id number] Normal [facility] Author: Yuly (Ot/L) [facility] Service: ? Author Type: Occupational Therapist Type: Therapy (PT/OT/Speech/Resp) Filed: 06/17/2020 10:29 AM Note Text: Occupational Therapy Evaluation SERVICE DATE: 06/17/2020 SERVICE TIME: 914 to 931 ROOM: [id number] Recommended Discharge Disposition: Acute Rehab Recommended Discharge [...] of coordination-other Interventions Provided: Evaluation $ Evaluation-Moderate ([address]) Billed Units: 1 unit OT Evaluation Moderate [...] TIME: 10:25 AM THERAPY NT HNO ID: [id number] Normal [facility] Author: Bailey (Pt) Feliz Harris [facility] Service: Physical Therapy Author Type: Physical Therapist Type: Therapy (PT/OT/Speech/Resp) Filed: 06/17/2020 2:50 PM Note Text: Physical Therapy Evaluation SERVICE DATE: 06/17/2020 SERVICE TIME: 931 to 947 ROOM: [place] [address] Recommended Discharge Disposition: Acute Rehab Recommended Discharge [...] on feet Interventions Provided: Evaluation $ Evaluation-Moderate (08430) Billed Units: 1 unit History and examination [...] on 0 9-09-2020 Comment See Below Normal [facility] [place] [facility] Comment on above: Result Comment: Screen &/or Xmatch expires in 3 days at 12 midnight. Redraw patient at that time. Performed By: #### ALCO3 ### # [facility] [address] [place], [place] [address] Urine Drug Screen on 06-17-2020 Urine Alcohol 87 mg/dL High 0-11 [facility] Comment on above: Performed By: #### UDRG3 ### # [facility] [address] [place] [address] Urine Amphetamine Negative Normal NEGATIVE [facility] Comment on above: Performed By: #### UDRG3 ### # [facility] [address] [place], [place] [address] Urine Barbiturates Negative Normal NEGATIVE [facility] Comment on above: Performed By: #### UDRG3 ### # [facility] [address] [place] [address] Urine Benzodiazepine Negative Normal NEGATIVE [facility] Comment on above: Performed By: #### UDRG3 ### # [facility] [address] [place] [address] Urine Cocaine Metab Negative Normal NEGATIVE [facility] Comment on above: Performed By: #### UDRG3 ### # [facility] [address] [place] [address] Urine Opiates Negative Normal NEGATIVE [facility] Comment on above: Performed By: #### UDRG3 ### # [facility] [address] [place] [address] Urine Oxycodone Negative Normal NEGATIVE [facility] Comment on above: Performed By: #### UDRG3 ### # [facility] [address] [place] [address] Urine PCP Negative Normal NEGATIVE [facility] [place] [facility] Comment on above: Result Comment: Test Cutoff Unit Amphetamines 1000 ng/mL Barbiturates 200 ng/mL Benzodiazepines 200 ng/mL Cannabinoids 50 ng/mL Cocaine 300 ng/mL Opiates 300 ng/mL Oxycodone 100 ng/mL Phencyclidine 25 ng/mL Reference Range: Negative at cutoff threshold Immunoassay screen only. Fashion Styling Intern ss reactivity with other substances can occur [...] the same specimen through the laboratory at ([phone]) if contact ed within 48 hours of initial 1. Substance Abuse and [facility] Health Services Administration (2012). [facility] Drug Testing in Primary Care Technical Assistance Publica tion Series 32. Department of Health and Human Services, [place], p.10. Performed By: #### UDRG3 ### # [facility] [address] [place], [place] [address] Urine THC Negative Normal NEGATIVE [facility] [employer] [facility] Comment on above: Performed By: #### UDRG3 ### # [facility] [address] [place], [place] [address] XR CHEST 1V FRONTAL on 06-17-2020 XR CHEST 1V FRONTAL Final Report Normal [facility] DATE OF EXAM: Jun 17 2020 2:35AM [...] Other: . IMPRESSION: No acute radiographic abnormality. Oyster Planter: PSCB Transcribe Date/Time: Jun 17 2020 3:30A Dictated by : SHABNAM WEST MD This examination was interpreted and the report review ed and electronically signed by: SHABNAM WEST MD on Jun 17 2020 3:30AM EST XR PELVIS 1V AP on 0 06-17-2020 XR PELVIS 1V AP Final Report Normal [facility] DATE OF EXAM: Jun 17 2020 2:35AM [...] structures are unremarkable. IMPRESSION: No acute findings Oyster Planter: ZORAN Transcribe Date/Time: Jun 17 2020 3:24A Dictated by : DARREL CHANG MD This examination was interpreted and the report review ed and electronically signed by: DARREL CHANG MD on Jun 17 2020 3:25AM EST ED NOTE on 0 ED NOTE HNO ID: [id number] [facility] Author: Jessica (Rn) MANDY Strickland Service: ? Author Type: Registered Nurse Type: ED Notes Filed: 06/16/2020 9:18 PM Note Text: Bed: 16-ED Expected date: Expected time: Means of arrival: Comments: YASH TRAUMA CONSULT Summary Purpose Family History No Family History Records FoundNo Family History Records Found Advance Directives No Advanced Directives Records FoundNo Advanced Directives Records Found Hospital Course Note HNO ID: [id number] Author: Destinee Sampson) [place] Service: General Surgery [...] DATE CREATED AUTHOR AUTHOR'S ERICH BATISTA 07/02/2020 [facility] DATE CREATED AUTHOR AUTHOR'S CANDACE Fitzpatrick 07/13/2020 [facility] FOR RECORDS PERTAINING TO PATIENTS WHO [...] BE BASED ON THE PRIMARY CLINICAL RECORDS. [facility] provides no warranty or guarantee of the accuracy or completeness of information in this document.
--- OUTSIDE RECORDS SUMMARY | 2021-02-24 06:17 | XMS RPT_ITS ---
Patient Summarization (C-CDA 2.1 CCD) Created on:February 24, 2021 Patient:MR. MERYL OGDEN Sex:Male :1970 External Reference #:[id number] Author Organization Sample organization Procedures Date Procedure Procedure Detail Performing Clin ician Start: 06-17-2020 Antibody screen Comment on above: Performed By: #### ALCO3 ### # [place] [address] Results Test Name Value Interpretation Reference Range Facility CASE MANAGEM on 06-09 CASE MANAGEM HNO ID: [id number] [facility] Author: Maggy south (Sw) Service: ? Author Type: Enamel Finisher Type: Care Mgt Progress Note Filed: 06/22/2020 2:46 PM Note Text: CARE MANAGEMENT PROGRESS NOTE SERVICE DATE: 06/22/2020 SERVICE TIME: 2:36 PM LOS: 5 days Needs Prior to Discharge: Other: See Comment;Discharge Transportation(Accepting [facility] Agency) Referrals for [facility] PT/OT sent to [facility], Yenny Luo [facility],and [facility], [facility], [facility], [facility]), [facility], [place] [facility], [facility] [place] all u nable to accept pt. Escalated this to CM bingo manager for assistance. Additional referrals sent to [facility], [facility], [facility], [facility], [facility], [facility], and [facility]. Awaiting r dre. SIGNATURE: WILLIAM Quiroga PATIENT NAME: Meryl santana DATE: June 22, 2020 TIME: 2:36 PM PAGER/CONTACT #: [phone] CASE MANAGEM HNO ID: [id number] [facility] Author: Maggy south (Sw) Service: ? Author Type: Enamel Finisher Type: Care Mgt Progress Note Filed: 06/23/2020 11:34 AM Note Text: CARE MANAGEMENT DISCHARGE NOTE SERVICE DATE: 06/22/2020 SERVICE TIME: 3:50 PM LOS: 5 days Admission Date: 06/16/2020 DISCHARGE ARRANGEMENT (list agency and phone number) Discharge Arrangement: Home;Home Usp Care: PT;OT Provider Name: [facility] CAREGIVER ASSESSMENT: Caregiver is ready, willing and able to meet the patie nt's needs as recommended by the inter-professional team:: Yes Does the patient have an acute stroke diagnosis, or castro s the patient had a stroke during this admission?: No Patient's transition needs and plan for meeting these needs: Home with [facility] HANDOFF COMMUNICATION: Handoff to: Primary Care Physician Primary Care Physician Name/Phone: Dr. Glover TRANSPORTATION ARRANGEMENTS: Transportation Arrangements: Taxi Cab Voucher ADDITIONAL CONTACT RESOURCES: Maury Solares Pt to go home with [facility] via cab ride at 5PM. SOC in 24 -48hrs. SIGNATURE: WILLIAM Quiroga PATIENT NAME: Meryl santana DATE: June 22, 2020 TIME: 3:50 PM PAGER/CONTACT #: [phone] CASE MANAGEM HNO ID: [id number] [facility] [place] [facility] Author: Maggy south (Sw) Service: ? Author Type: Enamel Finisher Type: Care Mgt Progress Note Filed: 06/23/2020 11:57 AM Note Text: CARE MANAGEMENT PROGRESS NOTE SERVICE DATE: 06/23/2020 SERVICE TIME: 11:55 AM LOS: [address] [facility] follow-up Per [facility], pt needs to schedule an appointment with his PCP. Called pt and LM explaining to make an appointment JOSUÉ with his PCP as well as provided [facility] phone number and informed him they are trying to get in touch with him for SOC. SIGNATURE: WILLIAM Quiroga PATIENT NAME: Meryl Lizamasamantha santana DATE: June 23, 2020 TIME: 11:55 AM PAGER/CONTACT #: [phone] NURSING PROG on 06-09 NURSING HNO ID: [id number] [facility] [place] PROG Author: Mercy StephensonRn) MANDY Saucedo General Service: Nursing Medical Author Type: Registered Nurse Center Type: Nursing Progress Note Filed: 06/22/2020 11:54 AM Note Text: Nursing Progress Note Patient Name: Meryl Ogden Patient Location: [place] [address]/[id number]- Patient anxious to be discharged home, BP 149/106. Rosario se Drain DINING ROOM ATTENDANT notified, no new orders received. Will continue to mon. This note was completed by: Mercy Saucedo RN PLAN OF CARE on 06-09 PLAN OF CARE HNO ID: [id number] [facility] Medical Author: Laura Tyler (Supervisor [employer]) Center Service: Pharmacy Author Type: Pharmacist Type: [...] total o f 7 days. Laura Tyler, Supervisor [employer] June 22, 2020 4:21 PM Medication List START taking these medications levETIRAcetam 1,000 mg tablet Commonly known as: KEPPRA Take 1 tablet by mouth twice daily for 4 doses. Bogdan augustin Where to Get Your Medications These medications were sent to [facility] [address] [place] [address] Hours: Monday-Monday, 8am-6:30pm ? levETIRAcetam 1,000 mg tablet You can get these medications from any pharmacy Bring a paper prescription for each of these medicatio ns ? Bogdan Sanchez CASE MANAGEM on 06-09 CASE MANAGEM HNO ID: [id number] [facility] Author: Deborah Nash (Sw) Service: ? Author Type: Enamel Finisher Type: Care Mgt Progress Note Filed: 06/21/2020 12:41 PM Note Text: CARE MANAGEMENT PROGRESS NOTE SERVICE DATE: 06/21/2020 SERVICE TIME: 12:39 PM LOS: 4 days Progress note Referral sent [facility], [facility], [facility], [facility],and [facility] for PT/OT. Awaiting acceptance. SIGNATURE: PAMELA Shepherd PATIENT NAME: Meryl santana DATE: June 21, 2020 TIME: 12:39 PM PAGER/CONTACT #: [phone] CASE MANAGEM HNO ID: [id number] [facility] Author: Rita StephensonRn) MANDY Baeza Service: Care [...] 21, 2020 TIME: 4:03 PM PAGER/CONTACT #: [phone] NURSING PROG on 06-09 NURSING HNO ID: [id number] [facility] Author: Jessica Shay RN General Service: Nursing Medical Author Type: Registered Nurse Center Type: Nursing Progress Note Filed: 06/21/2020 8:36 AM Note Text: Nursing Progress Note Patient Name: Meryl Ogden Patient Location: [id number] Wang of patient's elevated blood pressur e This note was completed by: Jessica Shay RN PROGRESS on 06-21-20 20 PROGRESS HNO ID: [id number] [facility] Medical Author: Destinee Sampson) Gama south [...] 06/20/20699 - 06/21/2065806/21/20 07 - 0659 Shift 3732-2121 4244-8995 6561-7714 24 Hour Total 0700 -1459 2300-0154 0964-8075 24 Hour Total INTAKE PO 240 240 PO 240 240 IV 50 50 Volume (mL) (magnesium sulfate in sterile water 2 g in sterile water 50 ml) 50 50 Shift Total 290 290 OUTPUT Urine 1300 4475 776 3665 200 200 Void (ml) 1300 4545 576 9752 200 200 Shift Total 1300 6780 946 0140 200 200 Weight (kg) 68.5 68.5 68.4 [...] h/o chronic alcohol abuse pres ents to [facility] with a subdural hematoma?s/p?fall from his [...] on Weekends and Holidays, please page [phone] if in ICU or [phone] if on RNF. THERAPY NT on 2019 THERAPY NT HNO ID: [id number] [facility] [place] [facility] Author: Kentrell (Pt) [facility] Service: Physical Therapy Author Type: Physical Therapist Type: Therapy (PT/OT/Speech/Resp) Filed: 06/21/2020 9:07 AM Note Text: Physical Therapy Treatment SERVICE DATE: 06/21/2020 SERVICE TIME: 0835 to 0900 ROOM: [place] [address] Recommended Discharge Disposition: Home PT Recommended Discharge [...] (generalized);Unsteadiness on feet Interventions Provided: Gait Training (10516);Therapeu tic Exercise (31581) Therapeutic Exercise (96322) Treatment Minutes: 10 1 unit Skilled Intervention(s): [...] ues provided for proper performance. Gait Training (21028) Treatment Minutes: 15 1 unit Skilled Intervention(s): [...] TIME: 9:03 AM THERAPY NT HNO ID: [id number] [facility] [place] [facility] stark Author: Yuly StephensonOt/L) [facility] Service: ? Author Type: Occupational Therapist Type: Therapy (PT/OT/Speech/Resp) Filed: 06/21/2020 9:58 AM Note Text: Occupational Therapy Treatment SERVICE DATE: 06/21/2020 SERVICE TIME: 924 to 939 ROOM: [id number] Recommended Discharge Disposition: Home OT Recommended Discharge [...] Provided: Self Usp Management (975 35);Cognitive Training (54795 and 17163) 2019 New Self Usp Management (60378) Treatment Minutes: 7 Skilled Intervention(s): Instructed in [...] understanding. Cognitive Training Per First 15 Minutes (80333) 2020: 8 1 unit Skilled Intervention(s): Facilitated [...] my rare books?; stated he would only pull through hooker whe n car was smoking, did not state he would exit; would not unplug toaster prior to removing toast). Reviewed answers with patient; receptive, verb alized understanding. Total Timed Code Treatment Minutes: 15 Total Treatment Time (minutes): 15 SUBJECTIVE: Current Hospital Course: Chart reviewed; [facility] protocol during admission. Reason for Occupational Therapy [...] Deficits Orientation Deficits: Not oriented to Place(Knew [facility]; didnt know city (he is from [place])) Responsiveness: Alert;Awake Follows Commands: 2-step Commands;3-step Commands [...] Standing Activity: Functional mobility to and from [facility] Standing Activity Tolerance (in minutes): 2 Please [...] Anion gap [Moles/Vol] 11 mmol/L Normal 9-18 [facility] Comment on above: Performed By: #### CMP #### [facility] [address] [place] [address] Calcium [Mass/Vol] 9.7 mg/dL Normal 8.5-10.2 [facility] Comment on above: Performed By: #### CMP #### [facility] [address] [place] [address] Chloride [Moles/Vol] 98 mmol/L Normal 97-105 [facility] Comment on above: Performed By: #### CMP #### [facility] [address] [place] [address] CO2 Blood 26 mmol/L Normal 22-30 [facility] Comment on above: Performed By: #### CMP #### [facility] [address] [place] [address] Creatinine [Mass/Vol] 0.54 mg/dL Low 0.73-1.22 [facility] Comment on above: Performed By: #### CMP #### [facility] [address] [place] [address] Glucose [Mass/Vol] 112 mg/dL High 74-99 [facility] Comment on above: Result Comment: The [place] Diabetes Association (ADA) provides guidance for cutoff [...] Standards of Medical Care in Diabetes 2016; [place] Diabetes Association. Diabetes Care. 2016;39(Suppl 1). Performed By: #### CMP #### [facility] [address] [place] [address] Potassium [Moles/Vol] 3.9 mmol/L Normal 3.7-5.1 [facility] Comment on above: Performed By: #### CMP #### [place] [address] Sodium [Moles/Vol] 135 mmol/L Low 136-144 [facility] Comment on above: Performed By: #### CMP #### [facility] [address] [place], [place] [address] Urea nitrogen [Mass/Vol] 12 mg/dL Normal 9-24 [facility] Comment on above: Performed By: #### CMP #### [address] [address] Hemogram on 06-20-20 20 Erythrocyte distribution width 12.7 % Normal 11.6-14.4 [facility] (RBC) [Ratio] Comment on above: Performed By: #### PT #### [facility] [address] [place], [place] [address] Hematocrit (Bld) [Volume fraction] 36.3 % Low 40.1-5 1.0 [facility] Comment on above: Performed By: #### PT #### [facility] [address] [place], [place] [address] Hemoglobin (Bld) [Mass/Vol] 12.7 g/dL Low 13.7-17.5 [facility] Comment on above: Performed By: #### PT #### [facility] [address] [place] [address] MCH (RBC) [Entitic mass] 34.0 pg High 25.7-32.2 [facility] Comment on above: Performed By: #### PT #### [facility] [address] [place] [address] MCHC (RBC) [Mass/Vol] 35.0 % Normal 32.3-36.5 [facility] Comment on above: Performed By: #### PT #### [facility] [address] [place] [address] MCV (RBC) [Entitic vol] 97.1 fL High 83.2-95.6 [facility] Comment on above: Performed By: #### PT #### [facility] [address] [place] [address] Platelet mean volume (Bld) 11.2 fL Normal 8.7-12.0 [facility] [Entitic vol] Comment on above: Performed By: #### PT #### [facility] [address] [place] [address] Platelets (Bld) [#/Vol] 70 thou/cmm Low 141-365 [facility] Comment on above: Result Comment: Geni dotson agrees with platelet count Performed By: #### PT #### [facility] [address] [place] [address] RBC (Bld) [#/Vol] 3.74 mil/cmm Low 4.63-6.08 [facility] Comment on above: Performed By: #### PT #### [facility] [address] [place] [address] RDW SD 44.6 fl Normal 36.1-45.8 [facility] Comment on above: Performed By: #### PT #### [facility] [address] [place] [address] WBC (Bld) [#/Vol] 4.78 thou/cmm Normal 4.23-9.07 [facility] Comment on above: Performed By: #### PT #### [facility] [address] [place] [address] MDRD GFR on 06-20-20 GFR/1.73 sq M predicted mL/min/{1.73_m2} Normal >60mL/min/1.7 3m2 [facility] among non-blacks MDRD System (S/P/Bld) [Vol rate/Area] Comment on above: Result Comment: If the patie nt is , multiply the result by 1.210. Performed By: #### GFR #### [facility] [address] [place], [place] [address] PROGRESS on 06-20-20 PROGRESS HNO ID: [id number] [facility] [place] Author: Shelbi Downey [facility] Service: General Surgery Med ical Author [...] on Weekends and Holidays, please page [phone] if in ICU or [phone] if on RNF. SUBJECTIVE: ERICH, patient articulate [...] - 06/20/20 0659 06/20/20699 - 0659 Shift 9019-7235 9804-4259 4373-9603 24 Hour Total 00 -1458 5038-7993 9326-9710 24 Hour Total INTAKE PO 240 600 840 240 240 PO 240 600 840 240 240 Shift Total 240 600 840 240 240 OUTPUT Urine 350 458 476 3787 500 500 Void (ml) 350 021 653 8474 500 500 Urine Incontinence/Not Saved 1 x 1 x Shift Total 350 326 992 2539 500 500 Weight (kg) 68.5 68.5 68.5 [...] h/o chronic alcohol abuse pres ents to [facility] with a subdural hematoma?s/p?fall from his [...] page [phone] if in ICU or [phone] if on RNF. Basic Metabolic Panel on 06-19-2020 Anion gap [Moles/Vol] 11 mmol/L Normal 9-18 [facility] Comment on above: Performed By: #### CMP #### [facility] [address] [place], [place] [address] Calcium [Mass/Vol] 9.2 mg/dL Normal 8.5-10.2 [facility] Comment on above: Performed By: #### CMP #### [facility] [address] [place], [place] [address] Chloride [Moles/Vol] 101 mmol/L Normal 97-105 [facility] Comment on above: Performed By: #### CMP #### [facility] [address] [place], [place] [address] CO2 Blood 25 mmol/L Normal 22-30 [facility] Comment on above: Performed By: #### CMP #### [facility] [address] [place], [place] [address] Creatinine [Mass/Vol] 0.52 mg/dL Low 0.73-1.22 [facility] Comment on above: Performed By: #### CMP #### [facility] [address] [place], [place] [address] Glucose [Mass/Vol] 106 mg/dL High 74-99 [facility] Comment on above: Result Comment: The [place] Diabetes Association (ADA) provides guidance for cutoff [...] Standards of Medical Care in Diabetes 2016; [place] Diabetes Association. Diabetes Care. 2016;39(Suppl 1). Performed By: #### CMP #### [facility] [address] [place] [address] Potassium [Moles/Vol] see below Normal 3.7-5.1 [facility] Comment on above: Result Comment: Unable to as say. Specimen Hemolyzed Performed By: #### CMP #### [facility] [address] [place] [id number] Sodium [Moles/Vol] 137 mmol/L Normal 136-144 [facility] Comment on above: Performed By: #### CMP #### [facility] [address] [place], [place] [address] Urea nitrogen [Mass/Vol] 8 mg/dL Low 9-24 [facility] Comment on above: Performed By: #### CMP #### [facility] [address] [place], [place] [address] CASE MANAGEM on 06-09 CASE MANAGEM HNO ID: [id number] [facility] Author: Maggy (Sw) Isra Ce nter Service: ? Author Type: Enamel Finisher Type: Care Mgt Progress Note Filed: 06/19/2020 9:35 AM Note Text: CARE MANAGEMENT PROGRESS NOTE SERVICE DATE: 06/19/2020 SERVICE TIME: 9:29 AM LOS: 2 days Needs Prior to Discharge: Precertification;Discharge T ransportation Chart reviewed. Pt CIWA score increased overnight and pt now in soft restraints and has received Ativan. Pt attempted to le ave AMA and was experiencing visual hallucinations. [facility] has accepted and will start precert today a nticipating it will be back on Monday or Monday. Plan at this time is [facility] if pt still agreeable once mental status clears and withdrawal symptoms improve. SIGNATURE: WILLIAM Quiroga PATIENT NAME: Meryl santana DATE: June 19, 2020 TIME: 9:29 AM PAGER/CONTACT #: [phone] CASE MANAGEM HNO ID: [id number] [facility] [place] [facility] Author: Maggy Mejia (Sw) nter Service: ? Author Type: Enamel Finisher Type: Care Mgt Progress Note Filed: 06/19/2020 12:28 PM Note Text: CARE MANAGEMENT PROGRESS NOTE SERVICE DATE: 06/19/2020 SERVICE TIME: 12:09 PM LOS: 2 days Needs Prior to Discharge: Accepting Facility;Precertif ication;Discharge Transportation;Bed Availability;To Be Determined Received call from Ingrid at [facility] who reports the medical billing service has denied pt's acceptance due to frequent [place] ED visits for alcohol intoxication and falls/head injuries. Per Ingrid, the m edical director does not think he will stay inpatient and/or follow-up or c omply with his care appropriately. Spoke with pt's Mother Maury Ogden [phone] who is pt's NOK. Discussed [facility] vs. SNF and pt's ambivalence about placem ent. Sent Maury a choice list for SNF so she can review choices and assi st pt once his mental status improves. Maury reports she was attempting to get in touch wit h pt's disability ledger poster but pt could not remember the name and she has been unsuccessful in cold searching. Plan: Await improvement in mental status for dispo russel nning with pt. Anticipate SNF placement. SIGNATURE: WILLIAM Quiroga PATIENT NAME: Meryl santana DATE: June 19, 2020 TIME: 12:09 PM PAGER/CONTACT #: [phone] Hemogram on 06-19-20 20 Erythrocyte distribution width 13.1 % Normal 11.6-14.4 [facility] (RBC) [Ratio] Comment on above: Performed By: #### CMP #### [facility] [address] [place] [address] Hematocrit (Bld) [Volume fraction] 36.2 % Low 40.1-5 1.0 [facility] Comment on above: Performed By: #### CMP #### [facility] [address] [place] [address] Hemoglobin (Bld) [Mass/Vol] 12.6 g/dL Low 13.7-17.5 [facility] Comment on above: Performed By: #### CMP #### [facility] [address] [place], [place] [address] MCH (RBC) [Entitic mass] 34.1 pg High 25.7-32.2 [facility] Comment on above: Performed By: #### CMP #### [facility] [address] [place], [place] [address] MCHC (RBC) [Mass/Vol] 34.8 % Normal 32.3-36.5 [facility] Comment on above: Performed By: #### CMP #### [facility] [address] [place], [place] [address] MCV (RBC) [Entitic vol] 98.1 fL High 83.2-95.6 [facility] Comment on above: Performed By: #### CMP #### [facility] [address] [place], [place] [address] Platelet mean volume (Bld) 12.0 fL Normal 8.7-12.0 [facility] [Entitic vol] Comment on above: Performed By: #### CMP #### [facility] [address] [place], [place] [address] Platelets (Bld) [#/Vol] 56 thou/cmm Low 141-365 [facility] Comment on above: Result Comment: Smear jovanni melendez tech agrees with platelet count Performed By: #### CMP #### [facility] [address] [place] [address] RBC (Bld) [#/Vol] 3.69 mil/cmm Low 4.63-6.08 [facility] Comment on above: Performed By: #### CMP #### [facility] [address] [place] [address] RDW SD 46.2 fl High 36.1-45.8 [facility] Comment on above: Performed By: #### CMP #### [facility] [address] [place] [address] WBC (Bld) [#/Vol] 5.07 thou/cmm Normal 4.23-9.07 [facility] Comment on above: Performed By: #### CMP #### [facility] [address] [place] [address] Magnesium Blood on 0 06-19-2020 Magnesium [Mass/Vol] 1.7 mg/dL Normal 1.7-2.3 [facility] Comment on above: Performed By: #### CMP #### [facility] [address] [place] [address] NURSING PROG on 06-09 NURSING HNO ID: [id number] [facility] [place] PROG Author: Senait StephensonRn) MANDY [place] General Service: Nursing Medical Author Type: Registered Nurse Center Type: Nursing Progress Note Filed: 06/19/2020 1:28 AM Note Text: Nursing Progress Note Patient Name: Meryl Ogden Patient Location: [id number] Daily Note: Patient attempting to get out [...] safety. This note was completed by: Senait Bradnon, RN 2300: Director Regulatory Agency, Anabelle, up to see patient. Multiple at [...] to be primary contact. NURSING HNO ID: [id number] [facility] [place] PROG Author: Senait (Rn) MANDY [place] General Service: Nursing Medical Author Type: Registered Nurse Center Type: Nursing Progress Note Filed: 06/18/2020 11:57 PM Note Text: Nursing Progress: Topic: RESTRAINT NON-VIOLENT PATIENT NAME: Meryl Ogden PATIENT LOCATION: [place] [address] [address] The patient demonstrates Confusion, Lack of Understand ing/Ability to Comply with Safety Directions, Impulsive Behavior, [place] bility to be Redirected, Inability to Retain [...] Low/Lo cked Position, Call Light Within Reach, Semiconductor Bonder/Sitter, Diversion Activi ties, Gauze Wrap/Sleeve IV Site, [...] PM Senait [place] RN NURSING HNO ID: [id number] [facility] Author: Gracie (Rn) MANDY Dolan General Service: ? Medical Author Type: Registered Nurse Center Type: Nursing Progress Note Filed: 06/19/2020 1:45 PM Note Text: Nursing Progress: Topic: RESTRAINT NON-VIOLENT PATIENT NAME: Meryl Ogden PATIENT LOCATION: [place] [address] [address] The patient demonstrates Confusion, Lack of Understand [...] Low/Lo cked Position, Call Light Within Reach, Semiconductor Bonder/Sitter, Diversion Activi ties, Gauze Wrap/Sleeve IV Site, [...] AM Gracie Dolan RN NURSING HNO ID: [id number] [facility] Author: Gracie (Rn) MANDY Dolan General Service: ? Medical Author Type: Registered Nurse Center Type: Nursing Progress Note Filed: 06/19/2020 3:27 PM Note Text: Nursing Progress Note Patient Name: Meryl Ogden Patient Location: [place] [address] [address]- RN removed restraints for patient to feed [...] on 06-09 PLAN OF CARE HNO ID: [id number] [facility] Author: Joey Bearden Service: General Surgery Author Type: Resident Type: Plan of Care Filed: 06/18/2020 10:40 PM Note Text: S: Was paged by nurse that patient was getting dressed and was planning to leave AMA. Patient was confused and alerted. He had a CIWA score of 16. He was [id number]. Patient had pulled out 2 IVs. O: [...] PGY-1 PROGRESS on 06-19-20 PROGRESS HNO ID: [id number] [facility] [place] Author: Joey (Res) Suleiman vance Service: General [...] and on Weekends and Holidays, please page [phone] if in ICU or [phone] if on RNF. SUBJECTIVE: Overnight the patient [...] he was in a rock room in [place]. He states he did not know who he was shira santana stated today was 1973. 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 While pointing to the TV shira santana [...] 0659 06/19/20 07 - 09/27 0659 Shift 0677-2986 9032-3160 3917-5843 24 Hour Total 0700 -1459 7546-7815 8125-4381 24 Hour Total INTAKE PO 600 240 40 880 PO 600 240 40 880 Shift Total 600 240 40 880 OUTPUT Urine 900 878 630 9986 Void (ml) 900 620 865 9544 Urine Incontinence/Not Saved 1 x 1 x Shift Total 900 570 896 7555 Weight (kg) 68.5 68.5 68.5 68.5 68.5 [...] h/o chronic alcohol abuse pres ents to [facility] with a subdural hematoma s/p fall [...] on Weekends and Holidays, please page [phone] if in ICU or [phone] if on RNF. THERAPY NT on 2019 THERAPY NT HNO ID: [id number] Normal Surekha stark Author: Eva (Pt) [facility] Service: Physical Therapy Author Type: Physical Therapist Type: Therapy (PT/OT/Speech/Resp) Filed: 06/19/2020 2:35 PM Note Text: Physical Therapy Treatment SERVICE DATE: 06/19/2020 SERVICE TIME: 1359 to 1419 ROOM: [place] [address] Recommended Discharge Disposition: Acute Rehab Recommended Discharge [...] (generalized);Unsteadiness on feet Interventions Provided: Therapeutic Activity (53816) Therapeutic Activity (14984) Treatment Minutes: 20 1 unit Skilled Intervention(s): [...] Anion gap [Moles/Vol] 9 mmol/L Normal 9-18 [facility] Comment on above: Performed By: #### CMP #### [facility] [address] [place], [place] [address] Calcium [Mass/Vol] 8.3 mg/dL Low 8.5-10.2 [facility] Comment on above: Performed By: #### CMP #### [facility] [address] [place], [place] [address] Chloride [Moles/Vol] 95 mmol/L Low 97-105 [facility] Comment on above: Performed By: #### CMP #### [facility] [address] [place], [place] [address] CO2 Blood 30 mmol/L Normal 22-30 [facility] Comment on above: Performed By: #### CMP #### [facility] [address] [place], [place] [address] Creatinine [Mass/Vol] 0.56 mg/dL Low 0.73-1.22 [facility] Comment on above: Performed By: #### CMP #### [facility] [address] [place], [place] [address] Glucose [Mass/Vol] 110 mg/dL High 74-99 [facility] Comment on above: Result Comment: The [place] Diabetes Association (ADA) provides guidance for cutoff [...] Standards of Medical Care in Diabetes 2016; [place] Diabetes Association. Diabetes Care. 2016;39(Suppl 1). Performed By: #### CMP #### [facility] [address] [place] [address] Potassium [Moles/Vol] 3.3 mmol/L Low 3.7-5.1 [facility] Comment on above: Performed By: #### CMP #### [facility] [address] [place] [address] Sodium [Moles/Vol] 134 mmol/L Low 136-144 [facility] Comment on above: Performed By: #### CMP #### [facility] [address] [place], [place] [address] Urea nitrogen [Mass/Vol] 7 mg/dL Low 9-24 [facility] Comment on above: Performed By: #### CMP #### [place] [id number] CASE MANAGEM on 06-09 CASE MANAGEM HNO ID: [id number] Normal [facility] Author: Maggy Dhaliwal (Sw) [facility] Service: ? 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 No Are There Practices or Beliefs That May Affect or Infl uence Care? No, Patient/Superintendent Construction Denies Patient Strengths/Protective Factors: Able to Communicate [...] Yes - Do you ever drink an eye-community service worker in the morning to re lieve shakes? 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 Yes OBSTACLES TO TREATMENT/POST-DISCHARGECHALLENGES: Limited/No Income Multiple Psychosocial Stressors Substance Abuse Transportation Difficulties Met with pt at bedside. Pt was cooperative and pleasan t. Pt reports he struggled heavily with drinking starting in as his marriage fell apart. Pt states he is active with a t herapist at [facility] in [place] and plans to continue with this agency. [...] as evidenced by forgetting his is in [place] and where his children live. Pt was able to eventually recollect that he and his children live in [place], [place] and he is currently in [place]. 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 He has been relying on his parents to assist wit h finances and states he has no concerns at this time because he has his parents to lean on. Pt declined any financial resources. Pt states he has some very good friends who live in [place], and two friends John caceres lincoln Hollis, [...] continue to follow. CASE MANAGEM HNO ID: [id number] Dimitrios stark Author: Maggy (William) Isra [facility] Service: ? Author Type: Enamel Finisher Type: Care Mgt Progress Note Filed: 06/18/2020 2:09 PM Note Text: CARE MANAGEMENT PROGRESS NOTE SERVICE DATE: 06/18/2020 SERVICE TIME: 2:07 PM LOS: 1 day [place] of Choice Given: Yes Level of Care Discussed: Inpatient Rehab Facility Financial Disclosure Provided: Yes Provider List: Rehab Facility Provider list within the patient's requested geographi c area shared with the patient/family: Yes within: 25 miles of zip code: [address] Quality and resource use metrics shared with the patie nt that are relevant to the patient's goals of care and treatment preferenc es:: Yes Metrics: Functional Status;Cognitive Status;Resource U se;Discharge to [facility] Discussed AR with pt and facilities in [facility]. P t agreeable to referral to [facility] Referral placed. SIGNATURE: WILLIAM Quiroga PATIENT NAME: Meryl santana DATE: June 18, 2020 TIME: 2:07 PM PAGER/CONTACT #: [phone] Hemogram on 06-18-20 20 Erythrocyte distribution width 12.6 % Normal 11.6-14.4 [facility] (RBC) [Ratio] Comment on above: Performed By: #### CMP #### [place] [address] Hematocrit (Bld) [Volume fraction] 35.2 % Low 40.1-5 1.0 [facility] Comment on above: Performed By: #### CMP #### [place] [address] Hemoglobin (Bld) [Mass/Vol] 12.1 g/dL Low 13.7-17.5 [facility] Comment on above: Performed By: #### CMP #### [place] [address] MCH (RBC) [Entitic mass] 33.0 pg High 25.7-32.2 [facility] Comment on above: Performed By: #### CMP #### [facility] [address] [place] [address] MCHC (RBC) [Mass/Vol] 34.4 % Normal 32.3-36.5 [facility] Comment on above: Performed By: #### CMP #### [place] [address] MCV (RBC) [Entitic vol] 95.9 fL High 83.2-95.6 [facility] Comment on above: Performed By: #### CMP #### [facility] [address] [place], [place] [address] Platelet mean volume (Bld) 10.8 fL Normal 8.7-12.0 [facility] [Entitic vol] Comment on above: Performed By: #### CMP #### [facility] [address] [place], [place] [address] Platelets (Bld) [#/Vol] 51 thou/cmm Low 141-365 [facility] Comment on above: Performed By: #### CMP #### [facility] [address] [place], [place] [address] RBC (Bld) [#/Vol] 3.67 mil/cmm Low 4.63-6.08 [facility] Comment on above: Performed By: #### CMP #### [facility] [address] [place], [place] [address] RDW SD 44.4 fl Normal 36.1-45.8 [facility] Comment on above: Performed By: #### CMP #### [facility] [address] [place], [place] [address] WBC (Bld) [#/Vol] 4.67 thou/cmm Normal 4.23-9.07 [facility] Comment on above: Performed By: #### CMP #### [facility] [address] [place], [place] [address] NURSING PROG on 06-09 NURSING PROG HNO ID: [id number] Normal [facility] Author: Jane (Rn) MANDY Cohen Service: Orthopaedic Surgery Author Type: Registered Nurse Type: Nursing Progress Note Filed: 06/18/2020 7:45 PM Note Text: Patient now with CIWA score of 16. Ativan 1 mg PO give n per orders. Pt is confused, thinks he is at the [facility]. Reoriented to place and time. Pt also stated that the ceiling looked like the floor . Noted mild tremors of hands. Pt pulled out IV's x 2, stating the tape was itching me, so I thought it was the best thing to do. Pt has set-off bed alarm multiple times during this shift, stating I thought y ou were calling me. Nursing supervisor plastering notified that patient may need a si tter for the security shift manager. PLAN OF CARE on 06-09 PLAN OF CARE HNO ID: [id number] [facility] Author: Simran Lyons) Katharine [place] Service: Neurosurgery Author Type: Physician Javascript Engineer Type: Plan of Care Filed: 06/18/2020 5:04 PM Note Text: Neurosurgery 06/18/2020 Imaging reviewed with Hany. CT stable. Follow up ap pointment requested in [address] Leach. Will SO. Simran Alcantar PA-C Pager: [phone] PROGRESS on 06-18-20 PROGRESS HNO ID: [id number] [facility] Author: Shashank Hernandez [place] Service: General Surgery Author Type: Physician Type: Progress Notes Filed: 06/18/2020 5:05 PM Note Text: Trauma Surgery Progress Note SERVICE DATE: 06/18/2020 Trauma Service Pager: For questions or concerns Mon-Fri 6a-5p please page [phone]. After 5pm and on Weekends and Holidays, please page [phone] if in ICU or [phone] if on RNF. SUBJECTIVE: No acute events. [...] 06/17/206[address] - 06/18/2065806/18/20699 - 08/28 0659 Shift 7362-6204 2175-4466 3399-9964 24 Hour Total 699 -1458 7793-3989 9784-9230 24 Hour Total INTAKE PO 360 240 600 PO 360 240 600 Shift Total 360 240 600 OUTPUT Urine 850 722 498 3745 Void (ml) 226 926 4132 Output ([REMOVED] External Collection Device 06/28 0300 06/17/20 1330) 850 850 Emesis 100 100 Emesis (ml) 100 100 Shift Total 950 062 559 5726 Weight (kg) 68 68 68.5 68.5 68.5 [...] h/o chronic alcohol abuse pres ents to [facility] with a subdural hematoma s/p fall [...] on Weekends and Holidays, please page [phone] if in ICU or [phone] if on RNF. Attending Note I evaluated [...] on 06-18-2020 MRSA PCR SEE BELOW Normal [facility] Comment on above: Result Comment: Negative for MRSA by PCR. Performed By: #### CMP #### [place] [address] S aureus Spec Source NASAL Normal [facility] Comment on above: Performed By: #### CMP #### [place] [address] Staph aureus PCR SEE BELOW Abnormal [facility] Comment on above: Result Comment: Positive for Staphylococcus aureus by PCR.(*) Performing Laboratory: [facility] [address] [place] [address] Performed By: #### CMP #### [facility] [address] [place], [place] [address] THERAPY NT on 2019 THERAPY NT HNO ID: [id number] Normal Surekha stark Author: Corbin ([facility]) Mumtaz CCC/HIV/AIDS CARE NURSE [facility] Service: Speech/Swallow Author Type: Speech Language Pathologist Type: Therapy (PT/OT/Speech/Resp) Filed: 06/18/2020 12:21 PM Note Text: Speech Therapy Speech Evaluation SERVICE DATE: 06/18/2020 SERVICE TIME: 1135 to 1205 ROOM: [place] [address] Nursing Recommendations: Reinforce use of cognitive-communication strategies [...] dysfun ctions Interventions Provided: Speech Language Eval (65853) $ Speech Language Eval (59545) Billed Units: 1 unit Total Treatment Time (minutes): 30 SUBJECTIVE: Current Hospital Course: Chart reviewed; Diagnosis: Subdural hematoma Reason for admit: Patient presents with: Trauma Evaulation: Sent from [place] for subdural azucena anisha and trauma consult. Patient was found on the ground on his porch with no recolection of how he got there. He is a daily drinker and was giv en ativan prior to arrival. No complaints at this time. Meryl is a 49 year old male who was brought her from [facility] ED for a subdural hematoma. He [...] this therapy evaluation/treatment . SIGNATURE: Corbin Pandya CCC-HIV/AIDS CARE NURSE PATIENT NAME: Adams Ogden DATE: June 18, 2020 TIME: 12:16 PM ABO/Rh Confirmation on 06-17-2020 ABO group Nom (Bld) B Normal [facility] Comment on above: Performed By: #### ALCO3 ### # [place] [address] RH Type Positive Normal [facility] Comment on above: Performed By: #### ALCO3 ### # [place] [address] Activated PTT on aPTT Coag (Bld) [Time] 27.9 s Normal 23.0-32.4 [facility] Comment on above: Result Comment: Unfractionat ed [...] AP TT reagent in use throughout the [facility]. Performed By: #### ALCO3 ### # [facility] [address] [place] [address] Alcohol, Serum on Alcohol, Serum 47.0 mg/dL High < 11 [facility] Comment on above: Performed By: #### ALCO3 ### # [place] [id number] Basic Metabolic Panel on 09-09-2020 Anion gap [Moles/Vol] 15 mmol/L Normal 9-18 [facility] Comment on above: Performed By: #### BMP #### [facility] [address] [place], [place] [address] Calcium [Mass/Vol] 8.0 mg/dL Low 8.5-10.2 [facility] Comment on above: Performed By: #### BMP #### [facility] [address] [place], [place] [address] Chloride [Moles/Vol] 96 mmol/L Low 97-105 [facility] Comment on above: Performed By: #### BMP #### [facility] [address] [place], [place] [address] CO2 Blood 26 mmol/L Normal 22-30 [facility] Comment on above: Performed By: #### BMP #### [facility] [address] [place], [place] [address] Creatinine [Mass/Vol] 0.50 mg/dL Low 0.73-1.22 [facility] Comment on above: Performed By: #### BMP #### [facility] [address] [place], [place] [address] Glucose [Mass/Vol] 67 mg/dL Low 74-99 [facility] Comment on above: Result Comment: The [place] Diabetes Association (ADA) provides guidance for cutoff [...] Standards of Medical Care in Diabetes 2016; [place] Diabetes Association. Diabetes Care. 2016;39(Suppl 1). Performed By: #### BMP #### [facility] [address] [place], [place] [address] Potassium [Moles/Vol] see below Normal 3.7-5.1 [facility] Comment on above: Result Comment: Unable to as say. Specimen Hemolyzed Performed By: #### BMP #### [facility] [address] [place], [place] [address] Sodium [Moles/Vol] 137 mmol/L Normal 136-144 [facility] Comment on above: Performed By: #### BMP #### [facility] [address] [place], [place] [address] Urea nitrogen [Mass/Vol] 5 mg/dL Low 9-24 [facility] Comment on above: Performed By: #### BMP #### [facility] [address] [place], [place] [address] CASE MANAGEM on CASE MANAGEM HNO ID: [id number] Normal [facility] Author: Belén Canela) Elodia Gutierrez Service: Social Work Author Type: Enamel Finisher Type: Care Mgt Progress Note Filed: 06/17/2020 4:21 PM Note Text: CARE MANAGEMENT PROGRESS NOTE SERVICE DATE: 06/17/2020 SERVICE TIME: 4:04 PM LOS: 0 days Lengthy phone conversation with pt mother, Jacqueline Rodriguez ([phone]). Pt mother and father live in [place] at [facility]. Mother reports pt does not have [...] 17, 2020 TIME: 4:04 PM PAGER/CONTACT #: [phone] CASE MGT INIT PRECIOUS on 06-17-2020 CASE MGT INIT PRECIOUS HNO ID: [id number] Normal [facility] Author: Belén Canela) [facility] Service: Social Work Author Type: Enamel Finisher Type: Care Mgt Initial Assessment Filed: 06/17/2020 3:42 PM Note Text: CARE MANAGEMENT: ASSESSMENT AND DISCHARGE PLAN SERVICE DATE: June 17, 2020 SERVICE TIME: 3:31 PM PRIMARY CARE PHYSICIAN: Yoko Glover MD ADMISSION STATUS: Inpatient Needs Prior to Discharge: To Be Determined MEDICAL: [facility] MEDICAID Patient/Superintendent Construction Stated Goals: To have reduction in pain;To improve my functional status;To return home to life as it was Health Insurance: [employer];Medicaid Health Issues Impacting Discharge Plan: Newly diagnose d Newly Diagnosed: Subdural hematoma Last Discharge Date: N/A Is this Within the Past 30 days? Last discharge within 30 days: No Advance Directive: Current Advance Directive: None Manager User Interface Attempted to Assist with AD Completion: Y [...] Information Primary Emergency Contact: GERONIMO VILLATORO Address: [address] [place], [place] [address] [address] Relation: Spouse Supportive Patient Contact:: Yes Contact [...] Completely I feel financially burdened by my [id number] expens es for my prescription medication:: 0 [...] Yes - Do you ever drink an eye-community service worker in the morning to re lieve shakes? No FREEDOM OF CHOICE EXPLAINED: [place] of Choice Given: Yes Level of Care [...] his life. +PCP (Dr. Elmer Bravo - [facility]). Discussed plan of care and recommendation for acute re hab. Pt refusing stating he needs to d/c home. Declined conversation at this time re: home PT/OT. (PT 6 Clicks Score 14; OT 6 Clicks Score 14). Completed CAGE assessment with pt stating hx of substa nce use tx at [facility] [employer] in [place]. Discussed assessment and treatment supports available; Pt declined additional resource information at this ti me.. Education provided on cessation of use to encourage healthy life patterns. Transitional care plan: tbd; Home with [facility] SIGNATURE: DRE Whitaker PATIENT NAME: Meryl Ogden DATE: June 17, 2020 TIME: 3:31 PM PAGER/CONTACT #: [phone] CONSULT on 0 CONSULT HNO ID: [id number] Dimitrios [facility]: [facility] Service: General Surgery Author Type: Resident Type: Consults Filed: 06/17/2020 12:02 AM Note Text: CONSULT: SICU Surgery Service SERVICE DATE: 06/16/2020 SERVICE TIME: 11:04 PM REASON FOR CONSULT: subdural hematoma REQUESTING PHYSICIAN: ED Subjective 49 year old male presents to [facility] as a transfer from [facility]. He apparently fell at home on [...] June 16, 2020 TIME: 11:04 PM Pager: [phone] CONSULT HNO ID: [id number] Normal [place] [facility] Author: Yonatan Smith Service: Neurosurgery [...] head bleed. He was admitted to a continuous churn buttermaker care facili at that time and required [...] June 16, 2020 TIME: 11:29 PM Pager: [phone] I reviewed the pertinent patient history and examinati on performed by PA/LIFT MECHANIC and examined the patient myself on June 17, 2020 Unless indicated below I agree with the plan of care connor Leach MD CT BRAIN WO IVCON on 06-17-2020 CT BRAIN WO IVCON Final Report Normal [employer] [facility] DATE OF EXAM: Jun 17 2020 5:07AM System [facility] 0504 - CT BRAIN WO IVCON [...] base and imaged soft tissues are unremarkable. Wash Mill Operator (topogram) images: No additional findings. IMPRESSION: Unchanged size of acute on chronic extra-axial hemorrh age along right cerebral convexity measuring 8 mm in thickness. Slight ly increased dependent hyperdense component near vertex is likely r edistribution of acute hemorrhage. No CT evidence of acute cortical infarct. Chronic small vessel ischemic white matter disease and diffuse cerebral volume loss. Health Administration Teacher: PSCB Transcribe Date/Time: Jun 17 2020 7:40A Dictated by : CARLOS PELAEZ MD This examination was interpreted and the report review ed and electronically signed by: CARLOS PELAEZ MD on Jun 17 2020 7:49AM EST CT BRAIN WO IVCON Final Report Normal [employer] DATE OF EXAM: Jun 17 2020 4:03PM System [facility] 0504 - CT BRAIN WO IVCON [...] base and imaged soft tissues are unremarkable. Wash Mill Operator (topogram) images: No additional findings. IMPRESSION: Unchanged acute on chronic extra-axial hemorrhages sophie ng right cerebral convexity, with minimal mass effect on right frontal l obe. No evidence of midline shift. Health Administration Teacher: PSCB Transcribe Date/Time: Jun 18 2020 7:24A Dictated by : CARLOS PELAEZ MD This examination was interpreted and the report review ed and electronically signed by: CARLOS PELAEZ MD on Jun 18 2020 7:31AM EST Comprehensive Metabolic Panel on 06-17-2020 Albumin [Mass/Vol] 4.0 g/dL Normal 3.9-4.9 [facility] Comment on above: Performed By: #### CMP #### [facility] [address] [place], [place] [address] ALP [Catalytic activity/Vol] 74 U/L Normal 38-113 [facility] Comment on above: Performed By: #### CMP #### [facility] [address] [place], [place] [address] ALT [Catalytic activity/Vol] 45 U/L Normal 10-54 [facility] Comment on above: Performed By: #### CMP #### [facility] [address] [place], [place] [address] Anion gap [Moles/Vol] 14 mmol/L Normal 9-18 [facility] Comment on above: Performed By: #### CMP #### [facility] [address] [place], [place] [address] AST [Catalytic activity/Vol] 140 U/L High 14-40 [facility] Comment on above: Performed By: #### CMP #### [facility] [address] [place], [place] [address] Bilirubin [Mass/Vol] 0.7 mg/dL Normal 0.2-1.3 [facility] Comment on above: Performed By: #### CMP #### [facility] [address] [place], [place] [address] Calcium [Mass/Vol] 7.9 mg/dL Low 8.5-10.2 [facility] Comment on above: Performed By: #### CMP #### [facility] [address] [place], [place] [address] Chloride [Moles/Vol] 98 mmol/L Normal 97-105 [facility] Comment on above: Performed By: #### CMP #### [facility] [address] [place], [place] [address] CO2 Blood 28 mmol/L Normal 22-30 [facility] Comment on above: Performed By: #### CMP #### [facility] [address] [place], [place] [address] Creatinine [Mass/Vol] 0.48 mg/dL Low 0.73-1.22 [facility] Comment on above: Performed By: #### CMP #### [facility] [address] [place], [place] [address] Glucose [Mass/Vol] 72 mg/dL Low 74-99 [facility] Comment on above: Result Comment: The [place] Diabetes Association (ADA) provides guidance for cutoff [...] Standards of Medical Care in Diabetes 2016; [place] Diabetes Association. Diabetes Care. 2016;39(Suppl 1). Performed By: #### CMP #### [facility] [address] [place], [place] [address] Potassium [Moles/Vol] 3.0 mmol/L Low 3.7-5.1 [facility] Comment on above: Performed By: #### CMP #### [facility] [address] [place], [place] [address] Protein [Mass/Vol] 6.8 g/dL Normal 6.3-8.0 [facility] Comment on above: Performed By: #### CMP #### [facility] [address] [place], [place] [address] Sodium [Moles/Vol] 140 mmol/L Normal 136-144 [facility] Comment on above: Performed By: #### CMP #### [facility] [address] [place], [place] [address] Urea nitrogen [Mass/Vol] 6 mg/dL Low 9-24 [facility] Comment on above: Performed By: #### CMP #### [facility] [address] [place], [place] [address] ED NOTE on 0 ED NOTE HNO ID: [id number] [facility] Author: Kwasi (Rn) MANDY Rivera Service: Emergency Medicine Author Type: Registered Nurse Type: ED Notes Filed: 06/17/2020 12:16 AM Note Text: Patient swabbed for COVID and sent to lab ED PROV NOTE on ED PROV NOTE HNO ID: [id number] [facility] Author: DO Matt Negro Service: Emergency Medicine Author Type: Physician Type: ED Provider Notes Filed: 06/17/2020 12:30 AM Note Text: ED Provider Note Patient Name: Meryl Ogden SERVICE DATE: 06/16/20 History Patient presents with: Trauma Evaulation: Sent from [place] for subdural azucena anisha and trauma consult. Patient was found on the ground on his porch with no recolection of how he got there. He is a daily drinker and was giv en ativan prior to arrival. No complaints at this time. SHAMIR Haji is a 49 year old male who was brought her from [facility] ED for a subdural hematoma. [facility]. He remember sitting on [...] other components within normal limits MAGNESIUM BLOOD (AK,AV,EU,FV,HL,FLOERNCIO,MM,SP) - Abnormal; Notable for the following components: [...] 49 year old male who presented to [facility] ED from [place] for a subdural hematoma following and unwitnessed but suspected trama. Initial workup/management includes the following: Labs: CBC, CMP, GFR, lipase, Mg, ETOH level, Urine tox , PT/INR, COVID Meds: ativan, Zofran, fentanyl Imaging: CT brain, CT neck, CXR done at [place] ED EKG: Normal At this time, the decision was made to admit the patie nt to the ICU for further management. I discussed this with the patient, who was agreeable to the plan. The patient was admitted to Dr. Wang in stable condition. SIGNATURE: Willow Daugherty (Hussein) MD [facility] Resident 06/16/20 8759 I performed a history and physical examination of the patient and discussed the management with the resident. I reviewed the resident's note and agree with the documented findings and plan of car e. Harini Nolen DO 06/17/20 0030 ED PROV NOTE HNO ID: [id number] [facility] Author: Harini Nolen DO Center Service: Emergency [...] emergenc y department as a transfer from [place] for trauma evaluation found to h ave [...] before the episode. He was seen in [facility] where he had laboratory studies done [...] PHYSICAL on 06-17-2020 HISTORY PHYSICAL HNO ID: [id number] Normal [facility] Author: Shelbi Savage [facility] Service: General Surgery Author Type: Resident Type: HANDP Filed: 06/17/2020 8:48 AM Note Text: TRAUMA SURGERY HANDP [facility] ARRIVAL DATE: 06/16/2020 ARRIVAL TIME: 2129 CATEGORY: Level 3 INJURY DATE: 06/16/2020 INJURY TIME: 1600 Subjective 49 year old male presents to [facility] as a transfer from [facility]. He apparently fell at home on [...] the last 72 hour s. Invalid input(s): [facility] Assessment/Plan There are no active hospital problems to display for t his patient. 49 year old male with a h/o chronic alcohol abuse pres ents to [facility] with a subdural hematoma s/p fall [...] on Weekends and Holidays, please page [phone] if in ICU or [phone] if on RNF. Hemogram on 06-17-20 20 Erythrocyte distribution width 13.0 % Normal 11.6-14.4 [facility] (RBC) [Ratio] Comment on above: Performed By: #### ALCO3 ### # [facility] [address] [place] [address] Erythrocyte distribution width 12.9 % Normal 11.6-14.4 [facility] (RBC) [Ratio] Comment on above: Performed By: #### CMP #### [place] [address] Hematocrit (Bld) [Volume fraction] 34.3 % Low 40.1-5 1.0 [facility] Comment on above: Performed By: #### ALCO3 ### # [place] [address] Hematocrit (Bld) [Volume fraction] 35.5 % Low 40.1-5 1.0 [facility] Comment on above: Performed By: #### CMP #### [place] [address] Hemoglobin (Bld) [Mass/Vol] 11.9 g/dL Low 13.7-17.5 [facility] Comment on above: Performed By: #### ALCO3 ### # [place] [address] Hemoglobin (Bld) [Mass/Vol] 12.2 g/dL Low 13.7-17.5 [facility] Comment on above: Performed By: #### CMP #### [address] [address] MCH (RBC) [Entitic mass] 33.6 pg High 25.7-32.2 [facility] Comment on above: Performed By: #### ALCO3 ### # [address] [address] MCH (RBC) [Entitic mass] 33.2 pg High 25.7-32.2 [facility] Comment on above: Performed By: #### CMP #### [facility] [address] [place] [address] MCHC (RBC) [Mass/Vol] 34.7 % Normal 32.3-36.5 [facility] Comment on above: Performed By: #### ALCO3 ### # [facility] [address] [place] [address] MCHC (RBC) [Mass/Vol] 34.4 % Normal 32.3-36.5 [facility] Comment on above: Performed By: #### CMP #### [facility] [address] [place] [address] MCV (RBC) [Entitic vol] 96.9 fL High 83.2-95.6 [facility] Comment on above: Performed By: #### ALCO3 ### # [facility] [address] [place] [address] MCV (RBC) [Entitic vol] 96.7 fL High 83.2-95.6 [facility] Comment on above: Performed By: #### CMP #### [facility] [address] [place] [address] Platelet mean volume (Bld) 11.2 fL Normal 8.7-12.0 [facility] [Entitic vol] Comment on above: Performed By: #### ALCO3 ### # [facility] [address] [place] [address] Platelet mean volume (Bld) 11.1 fL Normal 8.7-12.0 [facility] [Entitic vol] Comment on above: Performed By: #### CMP #### [facility] [address] [place] [address] Platelets (Bld) [#/Vol] 31 thou/cmm Critically low 141-365 [facility] Comment on above: Result Comment: Repeated AND verified Performed By: #### ALCO3 ### # [facility] [address] [place], [place] [address] Platelets (Bld) [#/Vol] 58 thou/cmm Low 141-365 [facility] Comment on above: Result Comment: Smear scanne d tech agrees with platelet count Performed By: #### CMP #### [facility] [address] [place] [address] RBC (Bld) [#/Vol] 3.54 mil/cmm Low 4.63-6.08 [facility] Comment on above: Performed By: #### ALCO3 ### # [facility] [address] [place] [address] RBC (Bld) [#/Vol] 3.67 mil/cmm Low 4.63-6.08 [facility] Comment on above: Performed By: #### CMP #### [facility] [address] [place] [address] RDW SD 46.3 fl High 36.1-45.8 [facility] Comment on above: Performed By: #### ALCO3 ### # [facility] [address] [place] [address] RDW SD 45.6 fl Normal 36.1-45.8 [facility] Comment on above: Performed By: #### CMP #### [facility] [address] [place] [address] WBC (Bld) [#/Vol] 4.96 thou/cmm Normal 4.23-9.07 [facility] Comment on above: Performed By: #### ALCO3 ### # [facility] [address] [place] [address] WBC (Bld) [#/Vol] 4.45 thou/cmm Normal 4.23-9.07 [facility] Comment on above: Performed By: #### CMP #### [facility] [address] [place] [address] Hemogram/Diff on Abs Immature Grans 0.02 thou/cmm Normal 0.00-0.05 [facility] Comment on above: Performed By: #### CBCD1 ### # [facility] [address] [place] [address] Abs Neut (ANC) 2.94 thou/cmm Normal 1.78-5.38 [facility] Comment on above: Performed By: #### CBCD1 ### # [facility] [address] [place] [address] Abs. Baso 0.06 thou/cmm Normal 0.01-0.08 [facility] Comment on above: Performed By: #### CBCD1 ### # [facility] [address] [place] [address] Abs. [place] 0.47 thou/cmm Normal 0.30-0.82 [facility] Comment on above: Performed By: #### CBCD1 ### # [facility] [address] [place] [address] Basophils/100 WBC (Bld) 1.3 % Normal [facility] Comment on above: Performed By: #### CBCD1 ### # [facility] [address] [place] [address] Eosinophils (Bld) [#/Vol] 0.07 thou/cmm Normal 0.04-0.54 [facility] Comment on above: Performed By: #### CBCD1 ### # [facility] [address] [place] [address] Eosinophils/100 WBC (Bld) 1.5 % Normal [facility] Comment on above: Performed By: #### CBCD1 ### # [facility] [address] [place] [address] Erythrocyte distribution width 13.2 % Normal 11.6-14.4 [facility] (RBC) [Ratio] Comment on above: Performed By: #### CBCD1 ### # [facility] [address] [place] [address] Hematocrit (Bld) [Volume fraction] 36.0 % Low 40.1-5 1.0 [facility] Comment on above: Performed By: #### CBCD1 ### # [facility] [address] [place] [address] Hemoglobin (Bld) [Mass/Vol] 12.3 g/dL Low 13.7-17.5 [facility] Comment on above: Performed By: #### CBCD1 ### # [facility] [address] [place] [address] Immature Grans 0.40 % Normal [facility] Comment on above: Performed By: #### CBCD1 ### # [facility] [address] [place], [place] [address] Lymphocytes (Bld) [#/Vol] 1.10 thou/cmm Normal 0.84-2.85 [facility] Comment on above: Performed By: #### CBCD1 ### # [facility] [address] [place], [place] [address] Lymphocytes/100 WBC (Bld) 23.6 % Normal [facility] Comment on above: Performed By: #### CBCD1 ### # [facility] [address] [place], [place] [address] MCH (RBC) [Entitic mass] 33.1 pg High 25.7-32.2 [facility] Comment on above: Performed By: #### CBCD1 ### # [facility] [address] [place] [address] MCHC (RBC) [Mass/Vol] 34.2 % Normal 32.3-36.5 [facility] Comment on above: Performed By: #### CBCD1 ### # [facility] [address] [place], [place] [address] MCV (RBC) [Entitic vol] 96.8 fL High 83.2-95.6 [facility] Comment on above: Performed By: #### CBCD1 ### # [facility] [address] [place], [place] [address] Monocytes/100 WBC (Bld) 10.1 % Normal [facility] Comment on above: Performed By: #### CBCD1 ### # [facility] [address] [place], [place] [address] Platelet mean volume (Bld) 11.1 fL Normal 8.7-12.0 [facility] [Entitic vol] Comment on above: Performed By: #### CBCD1 ### # [facility] [address] [place], [place] [address] Platelets (Bld) [#/Vol] 36 thou/cmm Critically low 141-365 [facility] Comment on above: Performed By: #### CBCD1 ### # [facility] [address] [place] [address] RBC (Bld) [#/Vol] 3.72 mil/cmm Low 4.63-6.08 [facility] Comment on above: Performed By: #### CBCD1 ### # [facility] [address] [place] [address] RDW SD 47.0 fl High 36.1-45.8 [facility] Comment on above: Performed By: #### CBCD1 ### # [facility] [address] [place] [address] Seg Neutrophil 63.1 % Normal [facility] Comment on above: Performed By: #### CBCD1 ### # [facility] [address] [place] [address] WBC (Bld) [#/Vol] 4.66 thou/cmm Normal 4.23-9.07 [facility] Comment on above: Performed By: #### CBCD1 ### # [facility] [address] [place] [address] Lipase Blood on Lipase Blood 37 U/L Normal 16-61 [facility] Comment on above: Performed By: #### LIP #### [facility] [address] [place] [address] Magnesium Blood on 0 06-17-2020 Magnesium [Mass/Vol] 1.2 mg/dL Low 1.7-2.3 [facility] Comment on above: Performed By: #### MAG #### [facility] [address] [place] [address] Magnesium [Mass/Vol] 1.9 mg/dL Normal 1.7-2.3 [facility] Comment on above: Performed By: #### ALCO3 ### # [facility] [address] [place] [address] PROGRESS on 06-17-20 PROGRESS HNO ID: [id number] [facility] Author: Shashank Hernandez [place] Service: General Surgery Author Type: Physician Type: Progress Notes Filed: 07/13/2020 8:17 AM Note Text: Trauma Surgery Progress Note SERVICE DATE: 06/17/2020 Trauma Service Pager: For questions or concerns Mon-Fri 6a-5p please page [phone]. After 5pm and on Weekends and Holidays, please page [phone] if in ICU or [phone] if on [...] 68 kg (150 lb) SpO2 99% B UT 18.75 kg/m? O2 Therapy: Room Air IANDO: Date 06/16/20699 - 06/17/20 0606/17/20699 - 07/28 0659 Shift 6515-5470 5962-8642 1715-3464 24 Hour Total 0700 -1459 4156-0741 0965-9397 24 Hour Total INTAKE IV 950 950 [...] h/o chronic alcohol abuse pres ents to [facility] with a subdural hematoma s/p fall [...] PT/OT Staff Trauma Surgeon: Dr. Hernandez SIGNATURE: aDle Hyatt MD PATIENT NAME: Meryl Caban iebe DATE: June 17, 2020 TIME: 6:42 AM Pager: see below Trauma Service Pager: For questions or concerns Mon-Fri 6a-5p please page [phone]. After 5pm and on Weekends and Holidays, please page [phone] if in ICU or [phone] if on RNF. Attending Note I evaluated the patient and personally participated in the benjamin components on 06/17/2020 I agree with the resident's findings and plan as docum ented and have discussed the case and management of the patient's car e with the resident. Shashank Hernandez MD Delayed entry PROGRESS HNO ID: [id number] [facility] Author: [facility] Service: General Surgery Author Type: Physician Type: [...] 0659 06/17/20 07 - 07/28 0659 Shift 2479-6576 2467-0475 6511-1754 24 Hour Total 0700 -1459 3163-4019 2035-7903 24 Hour Total INTAKE IV 950 950 [...] with chronic alcohol abuse who presented to [facility] with a subdural hematoma after a fall from his po [facility]. Hospital course: 06/17 CT brain shows [...] components of this [facility]. I discussed the management of [...] SDU?: Yes, transfer to SDU or [facility] today Discharge Planning: To be determined SIGNATURE: Vidhya Wang MD PATIENT NAME: Meryl Ogden DATE: June 17, 2020 TIME: 10:12 AM PROGRESS HNO ID: [id number] Normal [facility] Author: Simran Lyons) [facility] Service: Neurosurgery Author Type: Physician Javascript Engineer Type: Progress Notes Filed: 06/17/2020 3:12 PM [...] serial CT Brain -Keppra for seizure prophylaxis -[facility] protocol -Pain control -Discussed with Dr. Leach Medication and Non-Pharmacologic VTE Prophylaxis/Antic oagulants 06/17/20 0145 vte pharmacologic prophylaxis contraindi cated ([place], [place]) 06/17/20 0145 pneumatic compression stockings ([place], [place]) VTE Prophylaxis: VTE prophylaxis appropriate SIGNATURE: Simran Alcantar PA-C PATIENT NAME: Meryl Ogden DATE: June 17, 2020 TIME: 2:59 PM PAGER/CONTACT #: Pager: [phone] Pheresed Platelets o n 06-17-2020 Pheresed Plts unit 1 Done Normal [facility] Comment on above: Performed By: #### ALCO3 ### # [facility] [address] [place] [address] Phosphorous Blood on 06-17-2020 Phosphate [Mass/Vol] 2.9 mg/dL Normal 2.7-4.8 [facility] Comment on above: Performed By: #### ALCO3 ### # [facility] [address] [place], [place] [address] Protime on 0 INR Coag (PPP) [Relative time] 1.09 {INR} Normal 0.90-1.30 [facility] Comment on above: Result Comment: Vitamin K An tagonist (VKA) Therapeutic Range: INR 2 to 3 (Target INR of 2.5) Note: For patients treated w ith VKA drugs, such as warfarin, the [employer] 2012 Guideline recommends a therapeutic INR range of 2 to 3 (target INR of 2.5). This recommendation includes high -risk patients with antiphospholipid syndrome with previous arter ial or venous thromboembolism, current-generation mechanica l or bioprosthetic aortic heart valve replacement. Note: Patients with vault mechanic al aortic valve replacement and additional risk factors for thromboembolic events (atrial fibrillation, previous throm boembolism, LV dysfunction, hypercoagulable conditions) or an older generation mechanical AVR (i.e., ball in-Cage) or any mechanical MVR should have a INR therapeutic range of 2 .5 to 3.5 target INR of 3). Álvaro GH, et al. Chest 2012 ; 141:7S-47S Ada RA et al. [facility] 20 17; 70: 252-289 Performed By: #### PT #### [facility] [address] [place], [place] [address] INR Coag (PPP) [Relative time] 1.07 {INR} Normal 0.90-1.30 [facility] Comment on above: Result Comment: Vitamin K An tagonist (VKA) Therapeutic Range: INR 2 to 3 (Target INR of 2.5) Note: For patients treated w ith VKA drugs, such as warfarin, the [place] 2012 Guideline recommends a therapeutic INR range of 2 to 3 (target INR of 2.5). This recommendation includes high -risk patients with antiphospholipid syndrome with previous arter ial or venous thromboembolism, current-generation mechanica l or bioprosthetic aortic heart valve replacement. Note: Patients with vault mechanic al aortic valve replacement and additional [...] Ada PRICE et al. [facility] 20 17; 70: 252-289 Performed By: #### ALCO3 ### # [facility] [address] [place], [place] [address] PT Coag (PPP) [Time] 11.3 s Normal 9.7-13.0 [employer] Comment on above: Performed By: #### PT #### [facility] [address] [place] [address] PT Coag (PPP) [Time] 11.1 s Normal 9.7-13.0 [employer] Comment on above: Performed By: #### ALCO3 ### # [place] [address] Rapid, COVID 19 on 0 06-17-2020 Rapid, COVID 19 Negative Normal Negative [employer] Comment on above: Result Comment: This test castro s been authorized by the FDA under an Emergency Use Authorization (EUA). Performed By: #### RCOVD ### # [place] [address] THERAPY NT on 2019 THERAPY NT HNO ID: [id number] Normal [facility] Author: Yuly (Ot/L) [facility] Service: ? Author Type: Occupational Therapist Type: Therapy (PT/OT/Speech/Resp) Filed: 06/17/2020 10:29 AM Note Text: Occupational Therapy Evaluation SERVICE DATE: 06/17/2020 SERVICE TIME: 914 to 931 ROOM: [id number] Recommended Discharge Disposition: Acute Rehab Recommended Discharge [...] of coordination-other Interventions Provided: Evaluation $ Evaluation-Moderate (40568) Billed Units: 1 unit OT Evaluation Moderate [...] TIME: 10:25 AM THERAPY NT HNO ID: [id number] Normal [place] [facility] Author: Bailey (Pt) Feliz [facility] Service: Physical Therapy Author Type: Physical Therapist Type: Therapy (PT/OT/Speech/Resp) Filed: 06/17/2020 2:50 PM Note Text: Physical Therapy Evaluation SERVICE DATE: 06/17/2020 SERVICE TIME: 931 to 947 ROOM: [place] [address] Recommended Discharge Disposition: Acute Rehab Recommended Discharge [...] on feet Interventions Provided: Evaluation $ Evaluation-Moderate (55178) Billed Units: 1 unit History and examination [...] on 0 9-09-2020 Comment See Below Normal [facility] Comment on above: Result Comment: Screen &/or Xmatch expires in 3 days at 12 midnight. Redraw patient at that time. Performed By: #### ALCO3 ### # [facility] [address] [place], [place] [address] Urine Drug Screen on 06-17-2020 Urine Alcohol 87 mg/dL High 0-11 [facility] Comment on above: Performed By: #### UDRG3 ### # [facility] [address] [place] [address] Urine Amphetamine Negative Normal NEGATIVE [facility] Comment on above: Performed By: #### UDRG3 ### # [facility] [address] [place], [place] [address] Urine Barbiturates Negative Normal NEGATIVE [facility] Comment on above: Performed By: #### UDRG3 ### # [facility] [address] [place] [address] Urine Benzodiazepine Negative Normal NEGATIVE [facility] Comment on above: Performed By: #### UDRG3 ### # [facility] [address] [place] [address] Urine Cocaine Metab Negative Normal NEGATIVE [facility] Comment on above: Performed By: #### UDRG3 ### # [facility] [address] [place] [address] Urine Opiates Negative Normal NEGATIVE [facility] Comment on above: Performed By: #### UDRG3 ### # [facility] [address] [place] [address] Urine Oxycodone Negative Normal NEGATIVE [facility] Comment on above: Performed By: #### UDRG3 ### # [facility] [address] [place] [address] Urine PCP Negative Normal NEGATIVE [facility] Comment on above: Result Comment: Test Cutoff Unit Amphetamines 1000 ng/mL Barbiturates 200 ng/mL Benzodiazepines 200 ng/mL Cannabinoids 50 ng/mL Cocaine 300 ng/mL Opiates 300 ng/mL Oxycodone 100 ng/mL Phencyclidine 25 ng/mL Reference Range: Negative at cutoff threshold Immunoassay screen only. Tack Driller ss reactivity with other substances can occur [...] the same specimen through the laboratory at ([phone]) if contact ed within 48 hours of initial 1. Substance Abuse and [facility] Administration (2012). [facility] Drug Testing in Primary Care Technical Assistance Publica tion Series 32. Department of Health and Human Services, [place], p.10. Performed By: #### UDRG3 ### # [facility] [address] [place], [place] [address] Urine THC Negative Normal NEGATIVE [facility] [employer] [facility] Comment on above: Performed By: #### UDRG3 ### # [facility] [address] [place], [place] [address] XR CHEST 1V FRONTAL on 06-17-2020 XR CHEST 1V FRONTAL Final Report Normal [facility] DATE OF EXAM: Jun 17 2020 [...] Other: . IMPRESSION: No acute radiographic abnormality. Health Administration Teacher: PSCB Transcribe Date/Time: Jun 17 2020 3:30A Dictated by : SHABNAM WEST MD This examination was interpreted and the report review ed and electronically signed by: SHABNAM WEST MD on Jun 17 2020 3:30AM EST XR PELVIS 1V AP on 0 06-17-2020 XR PELVIS 1V AP Final Report Normal [facility] DATE OF EXAM: Jun 17 2020 2:35AM [...] structures are unremarkable. IMPRESSION: No acute findings Health Administration Teacher: ZORAN Transcribe Date/Time: Jun 17 2020 3:24A Dictated by : DARREL CHANG MD This examination was interpreted and the report review ed and electronically signed by: DARREL CHANG MD on Jun 17 2020 3:25AM EST ED NOTE on 0 ED NOTE HNO ID: [id number] [facility] Author: Jessica (Rn) MANDY Strickland Service: ? Author Type: Registered Nurse Type: ED Notes Filed: 06/16/2020 9:18 PM Note Text: Bed: 16-ED Expected date: Expected time: Means of arrival: Comments: YASH TRAUMA CONSULT Summary Purpose Family History No Family History Records FoundNo Family History Records Found Advance Directives No Advanced Directives Records FoundNo Advanced Directives Records Found Hospital Course Note HNO ID: [id number] Author: Destinee Sampson) [place] Service: General Surgery [...] DATE CREATED AUTHOR AUTHOR'S ERICH BATISTA 07/02/2020 [facility] DATE CREATED AUTHOR AUTHOR'S CANDACE Fitzpatrick 07/13/2020 [facility] FOR RECORDS PERTAINING TO PATIENTS WHO [...] BE BASED ON THE PRIMARY CLINICAL RECORDS. [facility]. provides no warranty or guarantee of the accuracy or completeness of information in this document.
--- OUTSIDE RECORDS SUMMARY | 2021-02-24 06:17 | XMS RPT_ITS ---
Patient Summarization (C-CDA 2.1 CCD) Created on:February 24, 2021 Patient:MR. MERYL OGDEN Sex:Male :1970 External Reference #:[id number] Author Organization Sample organization Procedures Date Procedure Procedure Detail Performing Clin ician Start: 06-17-2020 Antibody screen Comment on above: Performed By: #### ALCO3 ### # [place] [address] Results Test Name Value Interpretation Reference Range Facility CASE MANAGEM on 06-09 CASE MANAGEM HNO ID: [id number] [facility] Author: Maggy south (Sw) Service: ? Author Type: Australian Rules Footballer Type: Care Mgt Progress Note Filed: 06/22/2020 2:46 PM Note Text: CARE MANAGEMENT PROGRESS NOTE SERVICE DATE: 06/22/2020 SERVICE TIME: 2:36 PM LOS: 5 days Needs Prior to Discharge: Other: See Comment;Discharge Transportation(Accepting [facility] Agency) Referrals for [facility] PT/OT sent to [place], Yenny Luo [facility],and [facility], [facility], [facility], [facility]), [facility], [facility], [facility] [place] all u nable to accept pt. Escalated this to CM operations manager station for assistance. Additional referrals sent to [facility], [facility], [facility], [facility], [facility], [facility], and [facility]. Awaiting r dre. SIGNATURE: WILLIAM Quiroga PATIENT NAME: Meryl santana DATE: June 22, 2020 TIME: 2:36 PM PAGER/CONTACT #: [phone] CASE MANAGEM HNO ID: [id number] Normal [facility] Author: Maggy south (Sw) Service: ? Author Type: Australian Rules Footballer Type: Care Mgt Progress Note Filed: 06/23/2020 11:34 AM Note Text: CARE MANAGEMENT DISCHARGE NOTE SERVICE DATE: 06/22/2020 SERVICE TIME: 3:50 PM LOS: 5 days Admission Date: 06/16/2020 DISCHARGE ARRANGEMENT (list agency and phone number) Discharge Arrangement: Home;Home Senior Living Care: PT;OT Provider Name: [facility] CAREGIVER ASSESSMENT: Caregiver is ready, willing and able to meet the patie nt's needs as recommended by the inter-professional team:: Yes Does the patient have an acute stroke diagnosis, or castro s the patient had a stroke during this admission?: No Patient's transition needs and plan for meeting these needs: Home with [facility] HANDOFF COMMUNICATION: Handoff to: Primary Care Physician Primary Care Physician Name/Phone: Dr. Glover TRANSPORTATION ARRANGEMENTS: Transportation Arrangements: Taxi Cab Voucher ADDITIONAL CONTACT RESOURCES: Maury Solares [phone] Pt to go home with [facility] via cab ride at 5PM. SOC in 24 -48hrs. SIGNATURE: WILLIAM Quiroga PATIENT NAME: Meryl santana DATE: June 22, 2020 TIME: 3:50 PM PAGER/CONTACT #: [phone] CASE MANAGEM HNO ID: [id number] Normal [place] [facility] Author: Maggy south (Sw) Service: ? Author Type: Australian Rules Footballer Type: Care Mgt Progress Note Filed: 06/23/2020 11:57 AM Note Text: CARE MANAGEMENT PROGRESS NOTE SERVICE DATE: 06/23/2020 SERVICE TIME: 11:55 AM LOS: 5 days [facility] follow-up Per [facility], pt needs to schedule an appointment with his PCP. Called pt and LM explaining to make an appointment JOSUÉ with his PCP as well as provided [facility] phone number and informed him they are trying to get in touch with him for SOC. SIGNATURE: WILLIAM Quiroga PATIENT NAME: Meryl Lizamasamantha santana DATE: June 23, 2020 TIME: 11:55 AM PAGER/CONTACT #: [phone] NURSING PROG on 06-09 NURSING HNO ID: [id number] Normal [place] PROG Author: Mercy StephensonRn) MANDY Saucedo General Service: Nursing Medical Author Type: Registered Nurse Center Type: Nursing Progress Note Filed: 06/22/2020 11:54 AM Note Text: Nursing Progress Note Patient Name: Meryl Ogden Patient Location: [place] [address]/[id number]- Patient anxious to be discharged home, BP 149/106. Rosario se Drain INSPECTOR AND HAND PACKAGER notified, no new orders received. Will continue to mon. This note was completed by: Mercy Saucedo RN PLAN OF CARE on 06-09 PLAN OF CARE HNO ID: [id number] Normal [facility] Medical Author: Laura Tyler ([employer]) Center Service: Pharmacy Author Type: Pharmacist Type: [...] total o f 7 days. Laura Tyler, [employer] June 22, 2020 4:21 PM Medication List START taking these medications levETIRAcetam 1,000 mg tablet Commonly known as: KEPPRA Take 1 tablet by mouth twice daily for 4 doses. Bogdan augustin Where to Get Your Medications These medications were sent to [facility] [address] [place] [address] Hours: Monday-Monday, 8am-6:30pm ? levETIRAcetam 1,000 mg tablet You can get these medications from any pharmacy Bring a paper prescription for each of these medicatio ns ? Bogdan Sanchez CASE MANAGEM on 06-09 CASE MANAGEM HNO ID: [id number] [facility] Author: Deborah Nash (Sw) Service: ? Author Type: Australian Rules Footballer Type: Care Mgt Progress Note Filed: 06/21/2020 12:41 PM Note Text: CARE MANAGEMENT PROGRESS NOTE SERVICE DATE: 06/21/2020 SERVICE TIME: 12:39 PM LOS: 4 days Progress note Referral sent [facility], [facility], [place], [facility],and [facility] for PT/OT. Awaiting acceptance. SIGNATURE: PAMELA Shepherd PATIENT NAME: Meryl santana DATE: June 21, 2020 TIME: 12:39 PM PAGER/CONTACT #: [phone] CASE MANAGEM HNO ID: [id number] [facility] Author: Rita StephensonRn) MANDY Baeza Service: [...] 21, 2020 TIME: 4:03 PM PAGER/CONTACT #: [phone] NURSING PROG on 06-09 NURSING HNO ID: [id number] [facility] Author: Jessica Shay RN General Service: Nursing Medical Author Type: Registered Nurse Center Type: Nursing Progress Note Filed: 06/21/2020 8:36 AM Note Text: Nursing Progress Note Patient Name: Meryl Ogden Patient [id number] Wang of patient's elevated blood pressur e This note was completed by: Jessica Shay RN PROGRESS on 06-21-20 20 PROGRESS HNO ID: [id number] Normal [facility] Medical Author: Destinee Sampson) Gama south Service: [...] 06/20/20699 - 06/21/2065806/21/20 07 - 0659 Shift 8456-7916 0932-9113 3562-3128 24 Hour Total 0700 -1459 1705-2911 7981-3411 24 Hour Total INTAKE PO 240 240 PO 240 240 IV 50 50 Volume (mL) (magnesium sulfate in sterile water 2 g in sterile water 50 ml) 50 50 Shift Total 290 290 OUTPUT Urine 1300 7372 131 8189 200 200 Void (ml) 1300 5239 505 6935 200 200 Shift Total 1300 1233 220 3213 200 200 Weight (kg) 68.5 68.5 68.4 [...] h/o chronic alcohol abuse pres ents to [facility] with a subdural hematoma?s/p?fall from his [...] on Weekends and Holidays, please page [phone] if in ICU or [phone] if on RNF. THERAPY NT on 2019 THERAPY NT HNO ID: [id number] Normal [place] [facility] Author: Kentrell (Pt) [facility] Service: Physical Therapy Author Type: Physical Therapist Type: Therapy (PT/OT/Speech/Resp) Filed: 06/21/2020 9:07 AM Note Text: Physical Therapy Treatment SERVICE DATE: 06/21/2020 SERVICE TIME: 0835 to 0900 ROOM: [place] [address] Recommended Discharge Disposition: Home PT Recommended Discharge [...] return home at this time to a [facility] for improved activity tolerance and safe [...] (generalized);Unsteadiness on feet Interventions Provided: Gait Training (51297);Therapeu tic Exercise (62870) Therapeutic Exercise (88928) Treatment Minutes: 10 1 unit Skilled Intervention(s): [...] ues provided for proper performance. Gait Training (24212) Treatment Minutes: 15 1 unit Skilled Intervention(s): [...] TIME: 9:03 AM THERAPY NT HNO ID: [id number] Normal [place] [facility] Author: Yuly StephensonOt/L) [facility] Service: ? Author Type: Occupational Therapist Type: Therapy (PT/OT/Speech/Resp) Filed: 06/21/2020 9:58 AM Note Text: Occupational Therapy Treatment SERVICE DATE: 06/21/2020 SERVICE TIME: 924 to 939 ROOM: [id number] Recommended Discharge Disposition: Home OT Recommended Discharge [...] against placement at acute rehab or [facility] fa cility at discharge. Recommend home with [...] Cognitive Functions and Awareness Interventions Provided: Self Senior Living Management (975 35);Cognitive Training (16745 and 38805) 2019 New [facility] Senior Living Management (32089) Treatment Minutes: 7 Skilled Intervention(s): Instructed in [...] understanding. 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 Reviewed answers with patient; receptive, verb alized understanding. Total Timed Code Treatment Minutes: 15 Total Treatment Time (minutes): 15 SUBJECTIVE: Current Hospital Course: Chart reviewed; [facility] protocol during admission. Reason for [...] Deficits Orientation Deficits: Not oriented to Place([facility]; didnt know city (he is from [place])) Responsiveness: Alert;Awake Follows Commands: 2-step Commands;3-step [...] Standing Activity: Functional mobility to and from [facility] Standing Activity Tolerance (in minutes): 2 [...] Anion gap [Moles/Vol] 11 mmol/L Normal 9-18 [facility] Comment on above: Performed By: #### CMP #### [facility] [address] [place] [address] Calcium [Mass/Vol] 9.7 mg/dL Normal 8.5-10.2 [facility] Comment on above: Performed By: #### CMP #### [facility] [address] [place] [address] Chloride [Moles/Vol] 98 mmol/L Normal 97-105 [facility] Comment on above: Performed By: #### CMP #### [facility] [address] [place] [address] CO2 Blood 26 mmol/L Normal 22-30 [facility] Comment on above: Performed By: #### CMP #### [facility] [address] [place] [address] Creatinine [Mass/Vol] 0.54 mg/dL Low 0.73-1.22 [facility] Comment on above: Performed By: #### CMP #### [facility] [address] [place] [address] Glucose [Mass/Vol] 112 mg/dL High 74-99 [facility] Comment on above: Result Comment: The [place] Diabetes Association (ADA) provides guidance for cutoff [...] Standards of Medical Care in Diabetes 2016; [place] Diabetes Association. Diabetes Care. 2016;39(Suppl 1). Performed By: #### CMP #### [facility] [address] [place] [address] Potassium [Moles/Vol] 3.9 mmol/L Normal 3.7-5.1 [facility] Comment on above: Performed By: #### CMP #### [place] [address] Sodium [Moles/Vol] 135 mmol/L Low 136-144 [facility] Comment on above: Performed By: #### CMP #### [facility] [address] [place], [place] [address] Urea nitrogen [Mass/Vol] 12 mg/dL Normal 9-24 [facility] Comment on above: Performed By: #### CMP #### [address] [address] Hemogram on 06-20-20 20 Erythrocyte distribution width 12.7 % Normal 11.6-14.4 [facility] (RBC) [Ratio] Comment on above: Performed By: #### PT #### [facility] [address] [place], [place] [address] Hematocrit (Bld) [Volume fraction] 36.3 % Low 40.1-5 1.0 [facility] Comment on above: Performed By: #### PT #### [facility] [address] [place], [place] [address] Hemoglobin (Bld) [Mass/Vol] 12.7 g/dL Low 13.7-17.5 [facility] Comment on above: Performed By: #### PT #### [facility] [address] [place] [address] MCH (RBC) [Entitic mass] 34.0 pg High 25.7-32.2 [facility] Comment on above: Performed By: #### PT #### [facility] [address] [place] [address] MCHC (RBC) [Mass/Vol] 35.0 % Normal 32.3-36.5 [facility] Comment on above: Performed By: #### PT #### [facility] [address] [place] [address] MCV (RBC) [Entitic vol] 97.1 fL High 83.2-95.6 [facility] Comment on above: Performed By: #### PT #### [facility] [address] [place] [address] Platelet mean volume (Bld) 11.2 fL Normal 8.7-12.0 [facility] [Entitic vol] Comment on above: Performed By: #### PT #### [facility] [address] [place] [address] Platelets (Bld) [#/Vol] 70 thou/cmm Low 141-365 [facility] Comment on above: Result Comment: Geni dotson agrees with platelet count Performed By: #### PT #### [facility] [address] [place] [address] RBC (Bld) [#/Vol] 3.74 mil/cmm Low 4.63-6.08 [facility] Comment on above: Performed By: #### PT #### [facility] [address] [place] [address] RDW SD 44.6 fl Normal 36.1-45.8 [facility] Comment on above: Performed By: #### PT #### [facility] [address] [place] [address] WBC (Bld) [#/Vol] 4.78 thou/cmm Normal 4.23-9.07 [facility] Comment on above: Performed By: #### PT #### [facility] [address] [place] [address] MDRD GFR on 06-20-20 GFR/1.73 sq M predicted mL/min/{1.73_m2} Normal >60mL/min/1.7 3m2 [facility] among non-blacks MDRD System (S/P/Bld) [Vol rate/Area] Comment on above: Result Comment: If the patie nt is , multiply the result by 1.210. Performed By: #### GFR #### [facility] [address] [place], [place] [address] PROGRESS on 06-20-20 PROGRESS HNO ID: [id number] Normal [place] Author: Shelbi Downey [facility] Service: General Surgery Med ical [...] on Weekends and Holidays, please page [phone] if in ICU or [phone] if on RNF. SUBJECTIVE: ERICH, patient articulate [...] - 06/20/20 0659 06/20/20699 - 0659 Shift 3154-4929 8936-2409 6689-5497 24 Hour Total 00 -1458 4070-0214 9440-8026 24 Hour Total INTAKE PO 240 600 840 240 240 PO 240 600 840 240 240 Shift Total 240 600 840 240 240 OUTPUT Urine 350 172 101 4268 500 500 Void (ml) 350 246 997 8779 500 500 Urine Incontinence/Not Saved 1 x 1 x Shift Total 350 497 647 0556 500 500 Weight (kg) 68.5 68.5 68.5 [...] h/o chronic alcohol abuse pres ents to [facility] with a subdural hematoma?s/p?fall from his [...] page [phone] if in ICU or [phone] if on RNF. Basic Metabolic Panel on 06-19-2020 Anion gap [Moles/Vol] 11 mmol/L Normal 9-18 [facility] Comment on above: Performed By: #### CMP #### [facility] [address] [place], [place] [address] Calcium [Mass/Vol] 9.2 mg/dL Normal 8.5-10.2 [facility] Comment on above: Performed By: #### CMP #### [facility] [address] [place], [place] [address] Chloride [Moles/Vol] 101 mmol/L Normal 97-105 [facility] Comment on above: Performed By: #### CMP #### [facility] [address] [place], [place] [address] CO2 Blood 25 mmol/L Normal 22-30 [facility] Comment on above: Performed By: #### CMP #### [facility] [address] [place], [place] [address] Creatinine [Mass/Vol] 0.52 mg/dL Low 0.73-1.22 [facility] Comment on above: Performed By: #### CMP #### [facility] [address] [place], [place] [address] Glucose [Mass/Vol] 106 mg/dL High 74-99 [facility] Comment on above: Result Comment: The [place] Diabetes Association (ADA) provides guidance for cutoff [...] Standards of Medical Care in Diabetes 2016; [place] Diabetes Association. Diabetes Care. 2016;39(Suppl 1). Performed By: #### CMP #### [facility] [address] [place] [address] Potassium [Moles/Vol] see below Normal 3.7-5.1 [facility] Comment on above: Result Comment: Unable to as say. Specimen Hemolyzed Performed By: #### CMP #### [facility] [address] [place] [id number] Sodium [Moles/Vol] 137 mmol/L Normal 136-144 [facility] Comment on above: Performed By: #### CMP #### [facility] [address] [place], [place] [address] Urea nitrogen [Mass/Vol] 8 mg/dL Low 9-24 [facility] Comment on above: Performed By: #### CMP #### [facility] [address] [place], [place] [address] CASE MANAGEM on 06-09 CASE MANAGEM HNO ID: [id number] Normal [facility] Author: Maggy (Sw) Isra Ce nter Service: ? Author Type: Australian Rules Footballer Type: Care Mgt Progress Note Filed: 06/19/2020 9:35 AM Note Text: CARE MANAGEMENT PROGRESS NOTE SERVICE DATE: 06/19/2020 SERVICE TIME: 9:29 AM LOS: 2 days Needs Prior to Discharge: Precertification;Discharge T ransportation Chart reviewed. Pt CIWA score increased overnight and pt now in soft restraints and has received Ativan. Pt attempted to le ave AMA and was experiencing visual hallucinations. [facility] has accepted and will start precert today a nticipating it will be back on Monday or Monday. Plan at this time is [facility] if pt still agreeable once mental status clears and withdrawal symptoms improve. SIGNATURE: WILLIAM Quiroga PATIENT NAME: Meryl santana DATE: June 19, 2020 TIME: 9:29 AM PAGER/CONTACT #: [phone] CASE MANAGEM HNO ID: [id number] Normal [place] [facility] Author: Maggy Mejia (Sw) nter Service: ? Author Type: Australian Rules Footballer Type: Care Mgt Progress Note Filed: 06/19/2020 12:28 PM Note Text: CARE MANAGEMENT PROGRESS NOTE SERVICE DATE: 06/19/2020 SERVICE TIME: 12:09 PM LOS: 2 days Needs Prior to Discharge: Accepting Facility;Precertif ication;Discharge Transportation;Bed Availability;To Be Determined Received call from Ingrid at [facility] who reports the medical services coordinator has denied pt's acceptance due to frequent [place] ED visits for alcohol intoxication and falls/head injuries. Per Ingrid, the m edical director does not think he will stay inpatient and/or follow-up or c omply with his care appropriately. Spoke with pt's Mother Maury Ogden [phone] who is pt's NOK. Discussed [facility] vs. SNF and pt's ambivalence about placem ent. Sent Maury a choice list for SNF so she can review choices and assi st pt once his mental status improves. Maury reports she was attempting to get in touch wit h pt's disability child protective investigator but pt could not remember the name and she has been unsuccessful in cold searching. Plan: Await improvement in mental status for dispo russel nning with pt. Anticipate SNF placement. SIGNATURE: WILLIAM Quiroga PATIENT NAME: Meryl santana DATE: June 19, 2020 TIME: 12:09 PM PAGER/CONTACT #: [phone] Hemogram on 06-19-20 20 Erythrocyte distribution width 13.1 % Normal 11.6-14.4 [facility] (RBC) [Ratio] Comment on above: Performed By: #### CMP #### [facility] [address] [place] [address] Hematocrit (Bld) [Volume fraction] 36.2 % Low 40.1-5 1.0 [facility] Comment on above: Performed By: #### CMP #### [facility] [address] [place] [address] Hemoglobin (Bld) [Mass/Vol] 12.6 g/dL Low 13.7-17.5 [facility] Comment on above: Performed By: #### CMP #### [facility] [address] [place], [place] [address] MCH (RBC) [Entitic mass] 34.1 pg High 25.7-32.2 [facility] Comment on above: Performed By: #### CMP #### [facility] [address] [place], [place] [address] MCHC (RBC) [Mass/Vol] 34.8 % Normal 32.3-36.5 [facility] Comment on above: Performed By: #### CMP #### [facility] [address] [place], [place] [address] MCV (RBC) [Entitic vol] 98.1 fL High 83.2-95.6 [facility] Comment on above: Performed By: #### CMP #### [facility] [address] [place], [place] [address] Platelet mean volume (Bld) 12.0 fL Normal 8.7-12.0 [facility] [Entitic vol] Comment on above: Performed By: #### CMP #### [facility] [address] [place], [place] [address] Platelets (Bld) [#/Vol] 56 thou/cmm Low 141-365 [facility] Comment on above: Result Comment: Smear jovanni melendez tech agrees with platelet count Performed By: #### CMP #### [facility] [address] [place] [address] RBC (Bld) [#/Vol] 3.69 mil/cmm Low 4.63-6.08 [facility] Comment on above: Performed By: #### CMP #### [facility] [address] [place] [address] RDW SD 46.2 fl High 36.1-45.8 [facility] Comment on above: Performed By: #### CMP #### [facility] [address] [place] [address] WBC (Bld) [#/Vol] 5.07 thou/cmm Normal 4.23-9.07 [facility] Comment on above: Performed By: #### CMP #### [facility] [address] [place] [address] Magnesium Blood on 0 06-19-2020 Magnesium [Mass/Vol] 1.7 mg/dL Normal 1.7-2.3 [facility] Comment on above: Performed By: #### CMP #### [facility] [address] [place] [address] NURSING PROG on 06-09 NURSING HNO ID: [id number] Normal [place] PROG Author: Senait StephensonRn) MANDY Brandon General Service: Nursing Medical Author Type: Registered Nurse Center Type: Nursing Progress Note Filed: 06/19/2020 1:28 AM Note Text: Nursing Progress Note Patient Name: Meryl Ogden Patient [facility]: [id number] Daily Note: Patient attempting to get out [...] was completed by: Senait Brandon, RN 2300: Tin Recovery Worker, Anabelle, up to see patient. Multiple [...] to be primary contact. NURSING HNO ID: [id number] Normal [place] PROG Author: Senait (Rn) MANDY Brandon General Service: Nursing Medical Author Type: Registered Nurse Center Type: Nursing Progress Note Filed: 06/18/2020 11:57 PM Note Text: Nursing Progress: Topic: RESTRAINT NON-VIOLENT PATIENT NAME: Meryl Ogden PATIENT LOCATION: [place] [address] [address] The patient demonstrates Confusion, Lack of Understand ing/Ability to Comply with Safety Directions, Impulsive Behavior, [place] bility to be Redirected, Inability to Retain [...] Low/Lo cked Position, Call Light Within Reach, Demographer/Sitter, Diversion Activi ties, Gauze Wrap/Sleeve IV Site, [...] PM Senait Brandon RN NURSING HNO ID: [id number] [facility] Author: Gracie (Rn) MANDY Dolan General Service: ? Medical Author Type: Registered Nurse Center Type: Nursing Progress Note Filed: 06/19/2020 1:45 PM Note Text: Nursing Progress: Topic: RESTRAINT NON-VIOLENT PATIENT NAME: Meryl Ogden PATIENT LOCATION: [place] [address] [address]-* The patient demonstrates Confusion, Lack of Understand [...] Low/Lo cked Position, Call Light Within Reach, Demographer/Sitter, Diversion Activi ties, Gauze Wrap/Sleeve IV Site, [...] AM Gracie Dolan RN NURSING HNO ID: [id number] [facility] Author: Gracie (Rn) MANDY Dolan General Service: ? Medical Author Type: Registered Nurse Center Type: Nursing Progress Note Filed: 06/19/2020 3:27 PM Note Text: Nursing Progress Note Patient Name: Meryl Ogden Patient Location: [place] [address] [address]- RN removed restraints for patient to feed [...] on 06-09 PLAN OF CARE HNO ID: [id number] [facility] Author: Joey Bearden Service: General Surgery Author Type: Resident Type: Plan of Care Filed: 06/18/2020 10:40 PM Note Text: S: Was paged by nurse that patient was getting dressed and was planning to leave AMA. Patient was confused and alerted. He had a CIWA score of 16. He was BEYY4g4. Patient had pulled out 2 IVs. O: [...] PGY-1 PROGRESS on 06-19-20 PROGRESS HNO ID: [id number] Normal [place] Author: Joey (Res) Suleiman vance Service: General [...] and on Weekends and Holidays, please page [phone] if in ICU or [phone] if on RNF. SUBJECTIVE: Overnight the patient [...] he was in a rock room in [place]. He states he did not know who he was shira santana stated today was 1973. 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 While pointing to the TV shira santana [...] 0659 06/19/20 07 - 09/27 0659 Shift 7239-5321 6322-5258 4643-9134 24 Hour Total 0700 -1459 1169-1287 6623-5285 24 Hour Total INTAKE PO 600 240 40 880 PO 600 240 40 880 Shift Total 600 240 40 880 OUTPUT Urine 900 979 415 9615 Void (ml) 900 183 952 7290 Urine Incontinence/Not Saved 1 x 1 x Shift Total 900 992 764 8252 Weight (kg) 68.5 68.5 68.5 68.5 68.5 [...] h/o chronic alcohol abuse pres ents to [facility] with a subdural hematoma s/p fall [...] on Weekends and Holidays, please page [phone] if in ICU or [phone] if on RNF. THERAPY NT on 2019 THERAPY NT HNO ID: [id number] Normal Surekha stark Author: Eva (Pt) [facility] Service: Physical Therapy Author Type: Physical Therapist Type: Therapy (PT/OT/Speech/Resp) Filed: 06/19/2020 2:35 PM Note Text: Physical Therapy Treatment SERVICE DATE: 06/19/2020 SERVICE TIME: 1359 to 1419 ROOM: [place] [address] Recommended Discharge Disposition: Acute Rehab Recommended Discharge [...] (generalized);Unsteadiness on feet Interventions Provided: Therapeutic Activity (02236) Therapeutic Activity (25993) Treatment Minutes: 20 1 unit Skilled Intervention(s): [...] Anion gap [Moles/Vol] 9 mmol/L Normal 9-18 [facility] Comment on above: Performed By: #### CMP #### [facility] [address], [place] [address] Calcium [Mass/Vol] 8.3 mg/dL Low 8.5-10.2 [facility] Comment on above: Performed By: #### CMP #### [facility] [address], [place] [address] Chloride [Moles/Vol] 95 mmol/L Low 97-105 [facility] Comment on above: Performed By: #### CMP #### [facility] [address], [place] [address] CO2 Blood 30 mmol/L Normal 22-30 [facility] Comment on above: Performed By: #### CMP #### [facility] [address], [place] [address] Creatinine [Mass/Vol] 0.56 mg/dL Low 0.73-1.22 [facility] Comment on above: Performed By: #### CMP #### [facility] [address], [place] [address] Glucose [Mass/Vol] 110 mg/dL High 74-99 [facility] Comment on above: Result Comment: The [place] Diabetes Association (ADA) provides guidance for cutoff [...] Standards of Medical Care in Diabetes 2016; [place] Diabetes Association. Diabetes Care. 2016;39(Suppl 1). Performed By: #### CMP #### [facility] [address] [place] [address] Potassium [Moles/Vol] 3.3 mmol/L Low 3.7-5.1 [facility] Comment on above: Performed By: #### CMP #### [facility] [address] [place] [address] Sodium [Moles/Vol] 134 mmol/L Low 136-144 [facility] Comment on above: Performed By: #### CMP #### [facility] [address], [place] [address] Urea nitrogen [Mass/Vol] 7 mg/dL Low 9-24 [facility] Comment on above: Performed By: #### CMP #### [place] [id number] CASE MANAGEM on 06-09 CASE MANAGEM HNO ID: [id number] Normal [facility] Author: Maggy Dhaliwal (Sw) [facility] Service: ? Author Type: Australian Rules Footballer Type: Care Mgt Progress Note Filed: 06/18/2020 [...] and reports having t wo BA in Chinese and Philosophy Support System: Family: Mom and dad Friend(s) Status (Including History of Combat Experienc e): None Legal History:Patient/Corner Former Denies Anglican/Spirituality: Mennonite and not practicing Do Special Considerations/Accommodations Need to be Ma de? No Are There Practices or Beliefs That May Affect or Infl uence Care? No, Patient/Corner Former Denies Patient Strengths/Protective Factors: Able to Communicate [...] Yes - Do you ever drink an eye-loan clerk in the morning to re lieve shakes? No Offered Patient Resources: Yes DISCHARGE RECOMMENDATIONS: Medical Follow-Up, Relinkage With Previous Provider(s) and Acute Rehab Patient/Corner Former Agreeable With Discharge Recomm endations At This Time? Yes OBSTACLES TO TREATMENT/POST-DISCHARGECHALLENGES: Limited/No Income Multiple Psychosocial Stressors Substance Abuse Transportation Difficulties Met with pt at bedside. Pt was cooperative and pleasan t. Pt reports he struggled heavily with drinking starting in as his marriage fell apart. Pt states he is active with a t [facility]rapist at [facility] [place] and plans to continue with this [...] as evidenced by forgetting his is in [place] and where his children live. Pt was able to eventually recollect that he and his children live in [place], [place] and he is currently in [place]. 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 He has been relying on his parents to assist wit h finances and states he has no concerns at this time because he has his parents to lean on. Pt declined any financial resources. Pt states he has some very good friends who live in [place], and two friends John caceres lincoln Hollis, [...] continue to follow. CASE MANAGEM HNO ID: [id number] Dimitrios stark Author: Maggy (William) Isra [facility] Service: ? Author Type: Australian Rules Footballer Type: Care Mgt Progress Note Filed: 06/18/2020 2:09 PM Note Text: CARE MANAGEMENT PROGRESS NOTE SERVICE DATE: 06/18/2020 SERVICE TIME: 2:07 PM LOS: 1 day [place] of Choice Given: Yes Level of Care Discussed: Inpatient Rehab Facility Financial Disclosure Provided: Yes Provider List: Rehab Facility Provider list within the patient's requested geographi c area shared with the patient/family: Yes within: 25 miles of zip code: [address] Quality and resource use metrics shared with the patie nt that are relevant to the patient's goals of care and treatment preferenc es:: Yes Metrics: Functional Status;Cognitive Status;Resource U se;Discharge to [facility] Discussed AR with pt and facilities in [facility]. P t agreeable to referral to [facility]. Referral placed. SIGNATURE: WILLIAM Quiroga PATIENT NAME: Meryl santana DATE: June 18, 2020 TIME: 2:07 PM PAGER/CONTACT #: [phone] Hemogram on 06-18-20 20 Erythrocyte distribution width 12.6 % Normal 11.6-14.4 [facility] (RBC) [Ratio] Comment on above: Performed By: #### CMP #### [place] [address] Hematocrit (Bld) [Volume fraction] 35.2 % Low 40.1-5 1.0 [facility] Comment on above: Performed By: #### CMP #### [place] [address] Hemoglobin (Bld) [Mass/Vol] 12.1 g/dL Low 13.7-17.5 [facility] Comment on above: Performed By: #### CMP #### [place] [address] MCH (RBC) [Entitic mass] 33.0 pg High 25.7-32.2 [facility] Comment on above: Performed By: #### CMP #### [facility] [address] [place] [address] MCHC (RBC) [Mass/Vol] 34.4 % Normal 32.3-36.5 [facility] Comment on above: Performed By: #### CMP #### [place] [address] MCV (RBC) [Entitic vol] 95.9 fL High 83.2-95.6 [facility] Comment on above: Performed By: #### CMP #### [facility] [address], [place] [address] Platelet mean volume (Bld) 10.8 fL Normal 8.7-12.0 [facility] [Entitic vol] Comment on above: Performed By: #### CMP #### [facility] [address], [place] [address] Platelets (Bld) [#/Vol] 51 thou/cmm Low 141-365 [facility] Comment on above: Performed By: #### CMP #### [facility] [address], [place] [address] RBC (Bld) [#/Vol] 3.67 mil/cmm Low 4.63-6.08 [facility] Comment on above: Performed By: #### CMP #### [facility] [address], [place] [address] RDW SD 44.4 fl Normal 36.1-45.8 [facility] Comment on above: Performed By: #### CMP #### [facility] [address], [place] [address] WBC (Bld) [#/Vol] 4.67 thou/cmm Normal 4.23-9.07 [facility] Comment on above: Performed By: #### CMP #### [facility] [address], [place] [address] NURSING PROG on 06-09 NURSING PROG HNO ID: [id number] Normal [facility] Author: Jane (Rn) MANDY Cohen Service: Orthopaedic Surgery Author Type: Registered Nurse Type: Nursing Progress Note Filed: 06/18/2020 7:45 PM Note Text: Patient now with CIWA score of 16. Ativan 1 mg PO give n per orders. Pt is confused, thinks he is at the [facility]. Reoriented to place and time. Pt also stated that the ceiling looked like the floor . Noted mild tremors of hands. Pt pulled out IV's x 2, stating the tape was itching me, so I thought it was the best thing to do. Pt has set-off bed alarm multiple times during this shift, stating I thought y ou were calling me. Nursing supervisor locomotive notified that patient may need a si tter for the maintenance supervisor 2nd shift. PLAN OF CARE on 06-09 PLAN OF CARE HNO ID: [id number] [facility] Author: Simran Lyons) Katharine [place] Service: Neurosurgery Author Type: Physician Infrastructure Architect Type: Plan of Care Filed: 06/18/2020 5:04 PM Note Text: Neurosurgery 06/18/2020 Imaging reviewed with Hany. CT stable. Follow up ap pointment requested in [address] Leach. Will SO. Simran Alcantar PA-C Pager: [phone] PROGRESS on 06-18-20 PROGRESS HNO ID: [id number] [facility] Author: Shashank Hernandez [place] Service: General Surgery Author Type: Physician Type: Progress Notes Filed: 06/18/2020 5:05 PM Note Text: Trauma Surgery Progress Note SERVICE DATE: 06/18/2020 Trauma Service Pager: For questions or concerns Mon-Fri 6a-5p please page [phone]. After 5pm and on Weekends and Holidays, please page [phone] if in ICU or [phone] if on RNF. SUBJECTIVE: No acute events. [...] 06/17/[address] - 06/18/2065806/18/206[address] - 08/28 0659 Shift 7309-0381 3087-0129 8554-6036 24 Hour Total 699 -1458 2695-5024 2655-9140 24 Hour Total INTAKE PO 360 240 600 PO 360 240 600 Shift Total 360 240 600 OUTPUT Urine 850 202 367 7190 Void (ml) 166 918 9771 Output ([REMOVED] External Collection Device 06/28 0300 06/17/20 1330) 850 850 Emesis 100 100 Emesis (ml) 100 100 Shift Total 950 019 512 1032 Weight (kg) 68 68 68.5 68.5 68.5 [...] h/o chronic alcohol abuse pres ents to [facility] with a subdural hematoma s/p fall [...] on Weekends and Holidays, please page [phone] if in ICU or 0517 if on RNF. Attending Note I evaluated [...] PCR SEE BELOW Normal [facility] Comment on above: Result Comment: Negative for MRSA by PCR. Performed By: #### CMP #### [place] [address] S aureus Spec Source NASAL Normal [facility] Comment on above: Performed By: #### CMP #### [place] [address] Staph aureus PCR SEE BELOW Abnormal [facility] Comment on above: Result Comment: Positive for Staphylococcus aureus by PCR.(*) Performing Laboratory: [facility] [address] [place] [address] Performed By: #### CMP #### [facility] [address], [place] [address] THERAPY NT on 2019 THERAPY NT HNO ID: [id number] Normal Surekha stark Author: Corbin (Ccc-Technical Planner) Mumtaz CCC/APPRENTICE [facility] Service: Speech/Swallow Author Type: Speech Language Pathologist Type: Therapy (PT/OT/Speech/Resp) Filed: 06/18/2020 12:21 PM Note Text: Speech Therapy Speech Evaluation SERVICE DATE: 06/18/2020 SERVICE TIME: 1135 to 1205 ROOM: [place] [address] Nursing Recommendations: Reinforce use of cognitive-communication strategies [...] dysfun ctions Interventions Provided: Speech Language Eval (08563) $ Speech Language Eval (25599) Billed Units: 1 unit Total Treatment Time (minutes): 30 SUBJECTIVE: Current Hospital Course: Chart reviewed; Diagnosis: Subdural hematoma Reason for admit: Patient presents with: Trauma Evaulation: [facility] for subdural azucena anisha and trauma consult. Patient was found on the ground on his porch with no recolection of how he got there. He is a daily drinker and was giv en ativan prior to arrival. No complaints at this time. Meryl is a 49 year old male who was brought her from [facility] ED for a subdural hematoma. He was [...] this therapy evaluation/treatment . SIGNATURE: Corbin Pandya CCC-APPRENTICE [facility] PATIENT NAME: Adams Ogden DATE: June 18, 2020 TIME: 12:16 PM ABO/Rh Confirmation on 06-17-2020 ABO group Nom (Bld) B Normal [facility] Comment on above: Performed By: #### ALCO3 ### # [place] [address] RH Type Positive Normal [facility] Comment on above: Performed By: #### ALCO3 ### # [place] [address] Activated PTT on aPTT Coag (Bld) [Time] 27.9 s Normal 23.0-32.4 [facility] Comment on above: Result Comment: Unfractionat ed [...] AP TT reagent in use throughout the [facility]. Performed By: #### ALCO3 ### # [facility] [address] [place] [address] Alcohol, Serum on Alcohol, Serum 47.0 mg/dL High < 11 [facility] Comment on above: Performed By: #### ALCO3 ### # [place] [id number] Basic Metabolic Panel on 09-09-2020 Anion gap [Moles/Vol] 15 mmol/L Normal 9-18 [facility] Comment on above: Performed By: #### BMP #### [facility] [address], [place] [address] Calcium [Mass/Vol] 8.0 mg/dL Low 8.5-10.2 [facility] Comment on above: Performed By: #### BMP #### [facility] [address], [place] [address] Chloride [Moles/Vol] 96 mmol/L Low 97-105 [facility] Comment on above: Performed By: #### BMP #### [facility] [address], [place] [address] CO2 Blood 26 mmol/L Normal 22-30 [facility] Comment on above: Performed By: #### BMP #### [facility] [address], [place] [address] Creatinine [Mass/Vol] 0.50 mg/dL Low 0.73-1.22 [facility] Comment on above: Performed By: #### BMP #### [facility] [address], [place] [address] Glucose [Mass/Vol] 67 mg/dL Low 74-99 [facility] Comment on above: Result Comment: The [place] Diabetes Association (ADA) provides guidance for cutoff [...] Standards of Medical Care in Diabetes 2016; [place] Diabetes Association. Diabetes Care. 2016;39(Suppl 1). Performed By: #### BMP #### [facility] [address], [place] [address] Potassium [Moles/Vol] see below Normal 3.7-5.1 [facility] Comment on above: Result Comment: Unable to as say. Specimen Hemolyzed Performed By: #### BMP #### [facility] [address], [place] [address] Sodium [Moles/Vol] 137 mmol/L Normal 136-144 [facility] Comment on above: Performed By: #### BMP #### [facility] [address], [place] [address] Urea nitrogen [Mass/Vol] 5 mg/dL Low 9-24 [facility] Comment on above: Performed By: #### BMP #### [facility] [address], [place] [address] CASE MANAGEM on CASE MANAGEM HNO ID: [id number] Normal [facility] Author: Belén Canela) Elodia Gutierrez Service: Social Work Author Type: Australian Rules Footballer Type: Care Mgt Progress Note Filed: 06/17/2020 4:21 PM Note Text: CARE MANAGEMENT PROGRESS NOTE SERVICE DATE: 06/17/2020 SERVICE TIME: 4:04 PM LOS: 0 days Lengthy phone conversation with pt mother, Jacqueline Rodriguez ). Pt mother and father live in [place] at [facility]. Mother reports pt does not [...] 17, 2020 TIME: 4:04 PM PAGER/CONTACT #: [phone] CASE MGT INIT PRECIOUS on 06-17-2020 CASE MGT INIT PRECIOUS HNO ID: [id number] Normal [facility] Author: Belén Canela) [facility] Service: Social Work Author Type: Australian Rules Footballer Type: Care Mgt Initial Assessment Filed: 06/17/2020 3:42 PM Note Text: CARE MANAGEMENT: ASSESSMENT AND DISCHARGE PLAN SERVICE DATE: June 17, 2020 SERVICE TIME: 3:31 PM PRIMARY CARE PHYSICIAN: Yoko Glover MD ADMISSION STATUS: Inpatient Needs Prior to Discharge: To Be Determined MEDICAL: [facility] MEDICAID Patient/Corner Former Stated Goals: To have reduction in pain;To improve my functional status;To return home to life as it was Health Insurance: [employer]imon;Medicaid Health Issues Impacting Discharge Plan: Newly diagnose d Newly Diagnosed: Subdural hematoma Last Discharge Date: N/A Is this Within the Past 30 days? Last discharge within 30 days: No Advance Directive: Current Advance Directive: None Web Development Consultant Attempted to Assist with AD Completion: Y [...] Information Primary Emergency Contact: GERONIMO VILLATORO Address: [address] [place], [place] [address] [address] Relation: Spouse Supportive Patient Contact:: Yes Contact [...] Completely I feel financially burdened by my [id number] expens es for my prescription medication:: 0 [...] Yes - Do you ever drink an eye-loan clerk in the morning to re lieve shakes? No FREEDOM OF CHOICE EXPLAINED: [place] of Choice Given: Yes Level of Care [...] his life. +PCP (Dr. Elmer Bravo - [facility]). Discussed plan of care and recommendation for acute re hab. Pt refusing stating he needs to d/c home. Declined conversation at this time re: home PT/OT. (PT 6 Clicks Score 14; OT 6 Clicks Score 14). Completed CAGE assessment with pt stating hx of substa nce use tx at [facility] in [place]. Discussed assessment and treatment supports available; Pt declined additional resource information at this ti me.. Education provided on cessation of use to encourage healthy life patterns. Transitional care plan: tbd; [facility] with [facility] SIGNATURE: DRE Whitaker PATIENT NAME: Meryl Ogden DATE: June 17, 2020 TIME: 3:31 PM PAGER/CONTACT #: [phone] CONSULT on 0 CONSULT HNO ID: [id number] Dimitrios [facility] Medical [facility] Service: General Surgery Author Type: Resident Type: Consults Filed: 06/17/2020 12:02 AM Note Text: CONSULT: SICU Surgery Service SERVICE DATE: 06/16/2020 SERVICE TIME: 11:04 PM REASON FOR CONSULT: subdural hematoma REQUESTING PHYSICIAN: ED Subjective 49 year old male presents to [facility] as a transfer from [facility]. He apparently fell at home on his [...] June 16, 2020 TIME: 11:04 PM Pager: [phone] CONSULT HNO ID: [id number] Normal [facility] Medical Author: Yonatan Smith Service: Neurosurgery Author [...] head bleed. He was admitted to a ad terminal makeup operator care facili at that time and required [...] June 16, 2020 TIME: 11:29 PM Pager: [phone] I reviewed the pertinent patient history and examinati on performed by PA/SURVEILLANCE TECHNICIAN and examined the patient myself on June 17, 2020 Unless indicated below I agree with the plan of care connor Leach MD CT BRAIN WO IVCON on 06-17-2020 CT BRAIN WO IVCON Final Report Normal [facility] [employer] DATE OF EXAM: Jun 17 2020 5:07AM System [facility] 0504 - CT BRAIN WO IVCON / [...] base and imaged soft tissues are unremarkable. Human Resources Project Manager (topogram) images: No additional findings. IMPRESSION: Unchanged size of acute on chronic extra-axial hemorrh age along right cerebral convexity measuring 8 mm in thickness. Slight ly increased dependent hyperdense component near vertex is likely r edistribution of acute hemorrhage. No CT evidence of acute cortical infarct. Chronic small vessel ischemic white matter disease and diffuse cerebral volume loss. Quality Assurance Director: PSCB Transcribe Date/Time: Jun 17 2020 7:40A Dictated by : CARLOS PELAEZ MD This examination was interpreted and the report review ed and electronically signed by: CARLOS PELAEZ MD on Jun 17 2020 7:49AM EST CT BRAIN WO IVCON Final Report Normal [employer] DATE OF EXAM: Jun 17 2020 4:03PM System [facility] 0504 - CT BRAIN WO IVCON / [...] base and imaged soft tissues are unremarkable. Human Resources Project Manager (topogram) images: No additional findings. IMPRESSION: Unchanged acute on chronic extra-axial hemorrhages sophie ng right cerebral convexity, with minimal mass effect on right frontal l obe. No evidence of midline shift. Quality Assurance Director: PSCB Transcribe Date/Time: Jun 18 2020 7:24A Dictated by : CARLOS PELAEZ MD This examination was interpreted and the report review ed and electronically signed by: CARLOS PELAEZ MD on Jun 18 2020 7:31AM EST Comprehensive Metabolic Panel on 06-17-2020 Albumin [Mass/Vol] 4.0 g/dL Normal 3.9-4.9 [facility] Comment on above: Performed By: #### CMP #### [facility] [address], [place] [address] ALP [Catalytic activity/Vol] 74 U/L Normal 38-113 [facility] Comment on above: Performed By: #### CMP #### [facility] [address], [place] [address] ALT [Catalytic activity/Vol] 45 U/L Normal 10-54 [facility] Comment on above: Performed By: #### CMP #### [facility] [address], [place] [address] Anion gap [Moles/Vol] 14 mmol/L Normal 9-18 [facility] Comment on above: Performed By: #### CMP #### [facility] [address], [place] [address] AST [Catalytic activity/Vol] 140 U/L High 14-40 [facility] Comment on above: Performed By: #### CMP #### [facility] [address], [place] [address] Bilirubin [Mass/Vol] 0.7 mg/dL Normal 0.2-1.3 [facility] Comment on above: Performed By: #### CMP #### [facility] [address], [place] [address] Calcium [Mass/Vol] 7.9 mg/dL Low 8.5-10.2 [facility] Comment on above: Performed By: #### CMP #### [facility] [address], [place] [address] Chloride [Moles/Vol] 98 mmol/L Normal 97-105 [facility] Comment on above: Performed By: #### CMP #### [facility] [address], [place] [address] CO2 Blood 28 mmol/L Normal 22-30 [facility] Comment on above: Performed By: #### CMP #### [facility] [address], [place] [address] Creatinine [Mass/Vol] 0.48 mg/dL Low 0.73-1.22 [facility] Comment on above: Performed By: #### CMP #### [facility] [address], [place] [address] Glucose [Mass/Vol] 72 mg/dL Low 74-99 [facility] Comment on above: Result Comment: The [place] Diabetes Association (ADA) provides guidance for cutoff [...] Standards of Medical Care in Diabetes 2016; [place] Diabetes Association. Diabetes Care. 2016;39(Suppl 1). Performed By: #### CMP #### [facility] [address], [place] [address] Potassium [Moles/Vol] 3.0 mmol/L Low 3.7-5.1 [facility] Comment on above: Performed By: #### CMP #### [facility] [address], [place] [address] Protein [Mass/Vol] 6.8 g/dL Normal 6.3-8.0 [facility] Comment on above: Performed By: #### CMP #### [facility] [address], [place] [address] Sodium [Moles/Vol] 140 mmol/L Normal 136-144 [facility] Comment on above: Performed By: #### CMP #### [facility] [address], [place] [address] Urea nitrogen [Mass/Vol] 6 mg/dL Low 9-24 [facility] Comment on above: Performed By: #### CMP #### [facility] [address], [place] [address] ED NOTE on 0 ED NOTE HNO ID: [id number] [facility] Author: Kwasi (Rn) MANDY Rivera Service: Emergency Medicine Author Type: Registered Nurse Type: ED Notes Filed: 06/17/2020 12:16 AM Note Text: Patient swabbed for COVID and sent to lab ED PROV NOTE on ED PROV NOTE HNO ID: [id number] [facility] Author: DO Matt Negro Service: Emergency Medicine Author Type: Physician Type: ED Provider Notes Filed: 06/17/2020 12:30 AM Note Text: ED Provider Note Patient Name: Meryl Ogden SERVICE DATE: 06/16/20 History Patient presents with: Trauma Evaulation: [facility] for subdural azucena anisha and trauma consult. Patient was found on the ground on his porch with no recolection of how he got there. He is a daily drinker and was giv en ativan prior to arrival. No complaints at this time. SHAMIR Haji is a 49 year old male who was brought her from [facility] ED for a subdural hematoma. [facility] friend. He remember sitting on [...] 49 year old male who presented to [facility] ED from [place] for a subdural hematoma following and unwitnessed but suspected trama. Initial workup/management includes the following: Labs: CBC, CMP, GFR, lipase, Mg, ETOH level, Urine tox , PT/INR, COVID Meds: ativan, Zofran, fentanyl Imaging: CT brain, CT neck, CXR done at [facility] ED EKG: Normal At this time, the decision was made to admit the patie nt to the ICU for further management. I discussed this with the patient, who was agreeable to the plan. The patient was admitted to Dr. Wang in stable condition. SIGNATURE: Willow Daugherty (Hussein) MD Kwan Resident 06/16/20 1007 I performed a history and physical examination of the patient and discussed the management with the resident. I reviewed the resident's note and agree with the documented findings and plan of car e. Harini Nolen DO 06/17/20 0030 ED PROV NOTE HNO ID: [id number] Normal [facility] Author: Harini Nolen DO Center Service: [...] emergenc y department as a transfer from [facility] for trauma evaluation found to h [...] before the episode. He was seen in [facility] where he had laboratory studies [...] PHYSICAL on 06-17-2020 HISTORY PHYSICAL HNO ID: [id number] Normal [facility] Author: Shelbi Savage [facility] Service: General Surgery Author Type: Resident Type: HANDP Filed: 06/17/2020 8:48 AM Note Text: TRAUMA SURGERY HANDP [facility] [place] ARRIVAL DATE: 06/16/2020 ARRIVAL TIME: 2129 CATEGORY: Level 3 INJURY DATE: 06/16/2020 INJURY TIME: 1600 Subjective 49 year old male presents to [facility] as a transfer from [facility]. He apparently fell at home on his [...] the last 72 hour s. Invalid input(s): [facility] Assessment/Plan There are no active hospital problems to display for t his patient. 49 year old male with a h/o chronic alcohol abuse pres ents to [facility] with a subdural hematoma s/p fall [...] on Weekends and Holidays, please page [phone] if in ICU or 0705 if on RNF. Hemogram on 06-17-20 20 Erythrocyte distribution width 13.0 % Normal 11.6-14.4 [facility] (RBC) [Ratio] Comment on above: Performed By: #### ALCO3 ### # [facility] [address] [place] [address] Erythrocyte distribution width 12.9 % Normal 11.6-14.4 [facility] (RBC) [Ratio] Comment on above: Performed By: #### CMP #### [place] [address] Hematocrit (Bld) [Volume fraction] 34.3 % Low 40.1-5 1.0 [facility] Comment on above: Performed By: #### ALCO3 ### # [place] [address] Hematocrit (Bld) [Volume fraction] 35.5 % Low 40.1-5 1.0 [facility] Comment on above: Performed By: #### CMP #### [place] [address] Hemoglobin (Bld) [Mass/Vol] 11.9 g/dL Low 13.7-17.5 [facility] Comment on above: Performed By: #### ALCO3 ### # [place] [address] Hemoglobin (Bld) [Mass/Vol] 12.2 g/dL Low 13.7-17.5 [facility] Comment on above: Performed By: #### CMP #### [address] [address] MCH (RBC) [Entitic mass] 33.6 pg High 25.7-32.2 [facility] Comment on above: Performed By: #### ALCO3 ### # [address] [address] MCH (RBC) [Entitic mass] 33.2 pg High 25.7-32.2 [facility] Comment on above: Performed By: #### CMP #### [facility] [address] [place] [address] MCHC (RBC) [Mass/Vol] 34.7 % Normal 32.3-36.5 [facility] Comment on above: Performed By: #### ALCO3 ### # [facility] [address] [place] [address] MCHC (RBC) [Mass/Vol] 34.4 % Normal 32.3-36.5 [facility] Comment on above: Performed By: #### CMP #### [facility] [address] [place] [address] MCV (RBC) [Entitic vol] 96.9 fL High 83.2-95.6 [facility] Comment on above: Performed By: #### ALCO3 ### # [facility] [address] [place] [address] MCV (RBC) [Entitic vol] 96.7 fL High 83.2-95.6 [facility] Comment on above: Performed By: #### CMP #### [facility] [address] [place] [address] Platelet mean volume (Bld) 11.2 fL Normal 8.7-12.0 [facility] [Entitic vol] Comment on above: Performed By: #### ALCO3 ### # [facility] [address] [place] [address] Platelet mean volume (Bld) 11.1 fL Normal 8.7-12.0 [facility] [Entitic vol] Comment on above: Performed By: #### CMP #### [facility] [address] [place] [address] Platelets (Bld) [#/Vol] 31 thou/cmm Critically low 141-365 [facility] Comment on above: Result Comment: Repeated AND verified Performed By: #### ALCO3 ### # [facility] [address] [place], [place] [address] Platelets (Bld) [#/Vol] 58 thou/cmm Low 141-365 [facility] Comment on above: Result Comment: Smear scanne d tech agrees with platelet count Performed By: #### CMP #### [facility] [address] [place] [address] RBC (Bld) [#/Vol] 3.54 mil/cmm Low 4.63-6.08 [facility] Comment on above: Performed By: #### ALCO3 ### # [facility] [address] [place] [address] RBC (Bld) [#/Vol] 3.67 mil/cmm Low 4.63-6.08 [facility] Comment on above: Performed By: #### CMP #### [facility] [address] [place] [address] RDW SD 46.3 fl High 36.1-45.8 [facility] Comment on above: Performed By: #### ALCO3 ### # [facility] [address] [place] [address] RDW SD 45.6 fl Normal 36.1-45.8 [facility] Comment on above: Performed By: #### CMP #### [facility] [address] [place] [address] WBC (Bld) [#/Vol] 4.96 thou/cmm Normal 4.23-9.07 [facility] Comment on above: Performed By: #### ALCO3 ### # [facility] [address] [place] [address] WBC (Bld) [#/Vol] 4.45 thou/cmm Normal 4.23-9.07 [facility] Comment on above: Performed By: #### CMP #### [facility] [address] [place] [address] Hemogram/Diff on Abs Immature Grans 0.02 thou/cmm Normal 0.00-0.05 [facility] Comment on above: Performed By: #### CBCD1 ### # [facility] [address] [place] [address] Abs Neut (ANC) 2.94 thou/cmm Normal 1.78-5.38 [facility] Comment on above: Performed By: #### CBCD1 ### # [facility] [address] [place] [address] Abs. Baso 0.06 thou/cmm Normal 0.01-0.08 [facility] Comment on above: Performed By: #### CBCD1 ### # [facility] [address] [place] [address] Abs. [place] 0.47 thou/cmm Normal 0.30-0.82 [facility] Comment on above: Performed By: #### CBCD1 ### # [facility] [address] [place] [address] Basophils/100 WBC (Bld) 1.3 % Normal [facility] Comment on above: Performed By: #### CBCD1 ### # [facility] [address] [place] [address] Eosinophils (Bld) [#/Vol] 0.07 thou/cmm Normal 0.04-0.54 [facility] Comment on above: Performed By: #### CBCD1 ### # [facility] [address] [place] [address] Eosinophils/100 WBC (Bld) 1.5 % Normal [facility] Comment on above: Performed By: #### CBCD1 ### # [facility] [address] [place] [address] Erythrocyte distribution width 13.2 % Normal 11.6-14.4 [facility] (RBC) [Ratio] Comment on above: Performed By: #### CBCD1 ### # [facility] [address] [place] [address] Hematocrit (Bld) [Volume fraction] 36.0 % Low 40.1-5 1.0 [facility] Comment on above: Performed By: #### CBCD1 ### # [facility] [address] [place] [address] Hemoglobin (Bld) [Mass/Vol] 12.3 g/dL Low 13.7-17.5 [facility] Comment on above: Performed By: #### CBCD1 ### # [facility] [address] [place] [address] Immature Grans 0.40 % Normal [facility] Comment on above: Performed By: #### CBCD1 ### # [facility] [address] [place], [place] [address] Lymphocytes (Bld) [#/Vol] 1.10 thou/cmm Normal 0.84-2.85 [facility] Comment on above: Performed By: #### CBCD1 ### # [facility] [address] [place], [place] [address] Lymphocytes/100 WBC (Bld) 23.6 % Normal [facility] Comment on above: Performed By: #### CBCD1 ### # [facility] [address] [place], [place] [address] MCH (RBC) [Entitic mass] 33.1 pg High 25.7-32.2 [facility] Comment on above: Performed By: #### CBCD1 ### # [facility] [address] [place] [address] MCHC (RBC) [Mass/Vol] 34.2 % Normal 32.3-36.5 [facility] Comment on above: Performed By: #### CBCD1 ### # [facility] [address] [place], [place] [address] MCV (RBC) [Entitic vol] 96.8 fL High 83.2-95.6 [facility] Comment on above: Performed By: #### CBCD1 ### # [facility] [address] [place], [place] [address] Monocytes/100 WBC (Bld) 10.1 % Normal [facility] Comment on above: Performed By: #### CBCD1 ### # [facility] [address] [place], [place] [address] Platelet mean volume (Bld) 11.1 fL Normal 8.7-12.0 [facility] [Entitic vol] Comment on above: Performed By: #### CBCD1 ### # [facility] [address] [place], [place] [address] Platelets (Bld) [#/Vol] 36 thou/cmm Critically low 141-365 [facility] Comment on above: Performed By: #### CBCD1 ### # [facility] [address] [place] [address] RBC (Bld) [#/Vol] 3.72 mil/cmm Low 4.63-6.08 [facility] Comment on above: Performed By: #### CBCD1 ### # [facility] [address] [place] [address] RDW SD 47.0 fl High 36.1-45.8 [facility] [employer] Comment on above: Performed By: #### CBCD1 ### # [facility] [address] [place] [address] Seg Neutrophil 63.1 % Normal [facility] Comment on above: Performed By: #### CBCD1 ### # [facility] [address] [place] [address] WBC (Bld) [#/Vol] 4.66 thou/cmm Normal 4.23-9.07 [facility] Comment on above: Performed By: #### CBCD1 ### # [facility] [address] [place] [address] Lipase Blood on Lipase Blood 37 U/L Normal 16-61 [facility] [employer] Comment on above: Performed By: #### LIP #### [facility] [address] [place] [address] Magnesium Blood on 0 06-17-2020 Magnesium [Mass/Vol] 1.2 mg/dL Low 1.7-2.3 [facility] Comment on above: Performed By: #### MAG #### [facility] [address] [place] [address] Magnesium [Mass/Vol] 1.9 mg/dL Normal 1.7-2.3 [facility] Comment on above: Performed By: #### ALCO3 ### # [facility] [address] [place] [address] PROGRESS on 06-17-20 PROGRESS HNO ID: [id number] Normal [facility] Author: Shashank Hernandez [place] Service: General Surgery Author Type: Physician Type: Progress Notes Filed: 07/13/2020 8:17 AM Note Text: Trauma Surgery Progress Note SERVICE DATE: 06/17/2020 Trauma Service Pager: For questions or concerns Mon-Fri 6a-5p please page [phone]. After 5pm and on Weekends and Holidays, please page [phone] if in ICU or 2174 if on [...] 68 kg (150 lb) SpO2 99% B FL 18.75 kg/m? O2 Therapy: Room Air IANDO: Date 06/16/20699 - 06/17/20 0606/17/20699 - 07/28 0659 Shift 1341-0920 9590-4832 0305-8754 24 Hour Total 0700 -1459 0332-8816 9587-9116 24 Hour Total INTAKE IV 950 950 [...] h/o chronic alcohol abuse pres ents to [facility] with a subdural hematoma s/p fall [...] on Weekends and Holidays, please page [phone] if in ICU or 2177 if on RNF. Attending Note I evaluated the patient and personally participated in the benjamin components on 06/17/2020 I agree with the resident's findings and plan as docum ented and have discussed the case and management of the patient's car e with the resident. Shashank Hernandez MD Delayed entry PROGRESS HNO ID: [id number] [facility] Author: [facility] Service: General Surgery Author Type: Physician [...] 0659 06/17/20 07 - 07/28 0659 Shift 9898-4421 7672-3876 6894-8496 24 Hour Total 0700 -1459 3561-8805 2634-2561 24 Hour Total INTAKE IV 950 950 [...] with chronic alcohol abuse who presented to [facility] with a subdural hematoma after a fall from his [facility]. Hospital course: 06/17 CT brain shows stable [...] components of this encounter with the [facility] ICU team. I discussed the management of [...] or SDU?: Yes, transfer to SDU or [facility] today Discharge Planning: To be determined SIGNATURE: Vidhya Wang MD PATIENT NAME: Meryl Ogden DATE: June 17, 2020 TIME: 10:12 AM PROGRESS HNO ID: [id number] Normal [place] [facility] Author: Simran Lyons) [facility] Service: Neurosurgery Author Type: Physician Infrastructure Architect Type: Progress Notes Filed: 06/17/2020 3:12 PM [...] serial CT Brain -Keppra for seizure prophylaxis -[facility] protocol -Pain control -Discussed with Dr. Leach Medication and Non-Pharmacologic VTE Prophylaxis/Antic oagulants 06/17/20 0145 vte pharmacologic prophylaxis contraindi cated ([place], [place]) 06/17/20 0145 pneumatic compression stockings ([place], [place]) VTE Prophylaxis: VTE prophylaxis appropriate SIGNATURE: Simran Alcantar PA-C PATIENT NAME: Meryl Ogden DATE: June 17, 2020 TIME: 2:59 PM PAGER/CONTACT #: Pager: [phone] Pheresed Platelets o n 06-17-2020 Pheresed Plts unit 1 Done Normal [facility] Comment on above: Performed By: #### ALCO3 ### # [facility] [address] [place] [address] Phosphorous Blood on 06-17-2020 Phosphate [Mass/Vol] 2.9 mg/dL Normal 2.7-4.8 [facility] Comment on above: Performed By: #### ALCO3 ### # [facility] [address] [place], [place] [address] Protime on 0 INR Coag (PPP) [Relative time] 1.09 {INR} Normal 0.90-1.30 [facility] Comment on above: Result Comment: Vitamin K An tagonist (VKA) Therapeutic Range: INR 2 to 3 (Target INR of 2.5) Note: For patients treated w ith VKA drugs, such as warfarin, the [place] [employer] 2012 Guideline recommends a therapeutic INR range of 2 to 3 (target INR of 2.5). This recommendation includes high -risk patients with antiphospholipid syndrome with previous arter ial or venous thromboembolism, current-generation mechanica l or bioprosthetic aortic heart valve replacement. Note: Patients with mechanical specialist al aortic valve replacement and additional risk factors for thromboembolic events (atrial fibrillation, previous throm boembolism, LV dysfunction, hypercoagulable conditions) or an older generation mechanical AVR (i.e., ball in-Cage) or any mechanical MVR should have a INR therapeutic range of 2 .5 to 3.5 target INR of 3). Álvaro GH, et al. Chest 2012 ; 141:7S-47S Ada RA et al. [facility] 20 17; 70: 252-289 Performed By: #### PT #### [facility] [address] [place], [place] [address] INR Coag (PPP) [Relative time] 1.07 {INR} Normal 0.90-1.30 [facility] Comment on above: Result Comment: Vitamin K An tagonist (VKA) Therapeutic Range: INR 2 to 3 (Target INR of 2.5) Note: For patients treated w ith VKA drugs, such as warfarin, the [place] [employer] 2012 Guideline recommends a therapeutic INR range of 2 to 3 (target INR of 2.5). This recommendation includes high -risk patients with antiphospholipid syndrome with previous arter ial or venous thromboembolism, current-generation mechanica l or bioprosthetic aortic heart valve replacement. Note: Patients with mechanical specialist al aortic valve replacement and additional risk factors for thromboembolic events (atrial fibrillation, previous throm boembolism, LV dysfunction, hypercoagulable conditions) or an older generation mechanical AVR (i.e., ball in-Cage) or any mechanical MVR should have a INR therapeutic range of 2 .5 to 3.5 target INR of 3). Álvaro SHEIKH, et al. Chest 2012 ; 141:7S-47S Ada PRICE et al. [facility] 20 17; 70: 252-289 Performed By: #### ALCO3 ### # [facility] [address] [place], [place] [address] PT Coag (PPP) [Time] 11.3 s Normal 9.7-13.0 [facility] Comment on above: Performed By: #### PT #### [facility] [address] [place] [address] PT Coag (PPP) [Time] 11.1 s Normal 9.7-13.0 [facility] Comment on above: Performed By: #### ALCO3 ### # [place] [address] Rapid, COVID 19 on 0 06-17-2020 Rapid, COVID 19 Negative Normal Negative [employer] Comment on above: Result Comment: This test castro s been authorized by the FDA under an Emergency Use Authorization (EUA). Performed By: #### RCOVD ### # [place] [address] THERAPY NT on 2019 THERAPY NT HNO ID: [id number] Normal [facility] Author: Yuly (Ot/L) [facility] Service: ? Author Type: Occupational Therapist Type: Therapy (PT/OT/Speech/Resp) Filed: 06/17/2020 10:29 AM Note Text: Occupational Therapy Evaluation SERVICE DATE: 06/17/2020 SERVICE TIME: 914 to 931 ROOM: [id number] Recommended Discharge Disposition: Acute Rehab Recommended [...] of coordination-other Interventions Provided: Evaluation $ Evaluation-Moderate (18329) Billed Units: 1 unit OT Evaluation Moderate [...] TIME: 10:25 AM THERAPY NT HNO ID: [id number] Normal [place] [facility] Author: Bailey (Pt) Feliz [facility] Service: Physical Therapy Author Type: Physical Therapist Type: Therapy (PT/OT/Speech/Resp) Filed: 06/17/2020 2:50 PM Note Text: Physical Therapy Evaluation SERVICE DATE: 06/17/2020 SERVICE TIME: 931 to 947 ROOM: [place] [address] Recommended Discharge Disposition: Acute Rehab Recommended Discharge [...] on feet Interventions Provided: Evaluation $ Evaluation-Moderate (34871) Billed Units: 1 unit History and examination [...] Comment See Below Normal [facility] Comment on above: Result Comment: Screen &/or Xmatch expires in 3 days at 12 midnight. Redraw patient at that time. Performed By: #### ALCO3 ### # [facility] [address] [place], [place] [address] Urine Drug Screen on 06-17-2020 Urine Alcohol 87 mg/dL High 0-11 [facility] Comment on above: Performed By: #### UDRG3 ### # [facility] [address] [place] [address] Urine Amphetamine Negative Normal NEGATIVE [facility] Comment on above: Performed By: #### UDRG3 ### # [facility] [address] [place], [place] [address] Urine Barbiturates Negative Normal NEGATIVE [facility] Comment on above: Performed By: #### UDRG3 ### # [facility] [address] [place] [address] Urine Benzodiazepine Negative Normal NEGATIVE [facility] Comment on above: Performed By: #### UDRG3 ### # [facility] [address] [place] [address] Urine Cocaine Metab Negative Normal NEGATIVE [facility] Comment on above: Performed By: #### UDRG3 ### # [facility] [address] [place] [address] Urine Opiates Negative Normal NEGATIVE [facility] Comment on above: Performed By: #### UDRG3 ### # [facility] [address] [place] [address] Urine Oxycodone Negative Normal NEGATIVE [facility] Comment on above: Performed By: #### UDRG3 ### # [facility] [address] [place] [address] Urine PCP Negative Normal NEGATIVE [facility] Comment on above: Result Comment: Test Cutoff Unit Amphetamines 1000 ng/mL Barbiturates 200 ng/mL Benzodiazepines 200 ng/mL Cannabinoids 50 ng/mL Cocaine 300 ng/mL Opiates 300 ng/mL Oxycodone 100 ng/mL Phencyclidine 25 ng/mL Reference Range: Negative at cutoff threshold Immunoassay screen only. Tool Room Attendant ss reactivity with other substances can occur [...] the same specimen through the laboratory at ([phone]) if contact ed within 48 hours of initial 1. Substance Abuse and [facility] Health Services Administration (2012). [facility] Drug Testing in Primary Care Technical Assistance Publica tion Series 32. Department of Health and Human Services, [place], p.10. Performed By: #### UDRG3 ### # [facility] [address] [place], [place] [address] Urine THC Negative Normal NEGATIVE [facility] [employer] [facility] Comment on above: Performed By: #### UDRG3 ### # [facility] [address] [place], [place] [address] XR CHEST 1V FRONTAL on 06-17-2020 XR CHEST 1V FRONTAL Final Report Normal Catarizm [facility] DATE OF EXAM: Jun 17 2020 [...] Other: . IMPRESSION: No acute radiographic abnormality. Quality Assurance Director: PSCB Transcribe Date/Time: Jun 17 2020 3:30A Dictated by : SHABNAM WEST MD This examination was interpreted and the report review ed and electronically signed by: SHABNAM WEST MD on Jun 17 2020 3:30AM EST XR PELVIS 1V AP on 0 06-17-2020 XR PELVIS 1V AP Final Report Normal [facility] DATE OF EXAM: Jun 17 2020 2:35AM [...] structures are unremarkable. IMPRESSION: No acute findings Quality Assurance Director: ZORAN Transcribe Date/Time: Jun 17 2020 3:24A Dictated by : DARREL CHANG MD This examination was interpreted and the report review ed and electronically signed by: DARREL CHANG MD on Jun 17 2020 3:25AM EST ED NOTE on 0 ED NOTE HNO ID: [id number] [facility] Author: Jessica (Rn) MANDY Strickland Service: ? Author Type: Registered Nurse Type: ED Notes Filed: 06/16/2020 9:18 PM Note Text: Bed: 16-ED Expected date: Expected time: Means of arrival: Comments: YASH TRAUMA CONSULT Summary Purpose Family History No Family History Records FoundNo Family History Records Found Advance Directives No Advanced Directives Records FoundNo Advanced Directives Records Found Hospital Course Note HNO ID: [id number] Author: Destinee Sampson) [place] Service: General Surgery [...] DATE CREATED AUTHOR AUTHOR'S ERICH BATISTA 07/02/2020 [facility] DATE CREATED AUTHOR AUTHOR'S CANDACE Fitzpatrick 07/13/2020 [facility] FOR RECORDS PERTAINING TO PATIENTS WHO [...] BE BASED ON THE PRIMARY CLINICAL RECORDS. [facility] provides no warranty or guarantee of the accuracy or completeness of information in this document.
--- OUTSIDE RECORDS SUMMARY | 2021-02-24 06:18 | XMS RPT_ITS ---
Patient Summarization (C-CDA 2.1 CCD) Created on:February 24, 2021 Patient:MR. MERYL OGDEN Sex:Male :1970 External Reference #:[id number] Author Organization Sample organization Procedures Date Procedure Procedure Detail Performing Clin ician Start: 06-17-2020 Antibody screen Comment on above: Performed By: #### ALCO3 ### # [place] [address] Results Test Name Value Interpretation Reference Range Facility CASE MANAGEM on 06-09 CASE MANAGEM HNO ID: [id number] [facility] Author: Maggy south (Sw) Service: ? Author Type: Sash Maker Type: Care Mgt Progress Note Filed: 06/22/2020 2:46 PM Note Text: CARE MANAGEMENT PROGRESS NOTE SERVICE DATE: 06/22/2020 SERVICE TIME: 2:36 PM LOS: 5 days Needs Prior to Discharge: Other: See Comment;Discharge Transportation(Accepting [facility] Agency) Referrals for [facility] PT/OT sent to [facility], [facility],and [facility], [facility], [facility], [place] [facility]), [facility], [facility] [place] [facility], [facility] [place] all u nable to accept pt. Escalated this to CM logistics operations manager for assistance. Additional referrals sent to [facility], [facility], [facility], [facility], [facility], [facility], and [facility]. Awaiting r dre. SIGNATURE: WILLIAM Quiroga PATIENT NAME: Meryl santana DATE: June 22, 2020 TIME: 2:36 PM PAGER/CONTACT #: [phone] CASE MANAGEM HNO ID: [id number] Normal [facility] Author: Maggy south (Sw) Service: ? Author Type: Sash Maker Type: Care Mgt Progress Note Filed: 06/23/2020 11:34 AM Note Text: CARE MANAGEMENT DISCHARGE NOTE SERVICE DATE: 06/22/2020 SERVICE TIME: 3:50 PM LOS: 5 days Admission Date: 06/16/2020 DISCHARGE ARRANGEMENT (list agency and phone number) Discharge Arrangement: Home;Home Custodial Care: PT;OT Provider Name: PSYCHIATRIC CAREGIVER ASSESSMENT: Caregiver is ready, willing and able to meet the patie nt's needs as recommended by the inter-professional team:: Yes Does the patient have an acute stroke diagnosis, or castro s the patient had a stroke during this admission?: No Patient's transition needs and plan for meeting these needs: Home with [facility] HANDOFF COMMUNICATION: Handoff to: Primary Care Physician Primary Care Physician Name/Phone: Dr. Glover TRANSPORTATION ARRANGEMENTS: Transportation Arrangements: Taxi Cab Voucher ADDITIONAL CONTACT RESOURCES: Maury Solares Pt to go home with PSYCHIATRIC via cab ride at 5PM. SOC in 24 -48hrs. SIGNATURE: WILLIAM Quiroga PATIENT NAME: Meryl santana DATE: June 22, 2020 TIME: 3:50 PM PAGER/CONTACT #: [phone] CASE MANAGEM HNO ID: [id number] [facility] Author: Maggy south (Sw) Service: ? Author Type: Sash Maker Type: Care Mgt Progress Note Filed: 06/23/2020 11:57 AM Note Text: CARE MANAGEMENT PROGRESS NOTE SERVICE DATE: 06/23/2020 SERVICE TIME: 11:55 AM LOS: 5 days [facility] follow-up Per PSYCHIATRIC, pt needs to schedule an appointment with his PCP. Called pt and LM explaining to make an appointment JOSUÉ with his PCP as well as provided PSYCHIATRIC phone number and informed him they are trying to get in touch with him for SOC. SIGNATURE: WILLIAM Quiroga PATIENT NAME: Meryl Lizamasamantha santana DATE: June 23, 2020 TIME: 11:55 AM PAGER/CONTACT #: [phone] NURSING PROG on 06-09 NURSING HNO ID: [id number] Normal [facility] PROG Author: Mercy StephensonRn) MANDY Saucedo General Service: Nursing Medical Author Type: Registered Nurse Center Type: Nursing Progress Note Filed: 06/22/2020 11:54 AM Note Text: Nursing Progress Note Patient Name: Meryl Ogden Patient Location: [place] [address]/[id number]- Patient anxious to be discharged home, BP 149/106. Rosario se Drain BELT MAKER HELPER notified, no new orders received. Will continue to mon. This note was completed by: Mercy Saucedo RN PLAN OF CARE on 06-09 PLAN OF CARE HNO ID: [id number] Normal [facility] Medical Author: Laura Tyler (Autocad Electrical Designer) Center Service: Pharmacy Author Type: Pharmacist Type: [...] total o f 7 days. Laura Tyler, Autocad Electrical Designer June 22, 2020 4:21 PM Medication List START taking these medications levETIRAcetam 1,000 mg tablet Commonly known as: KEPPRA Take 1 tablet by mouth twice daily for 4 doses. Bogdan augustin Where to Get Your Medications These medications were sent to [facility] [address] [place] [address] Hours: Monday-Monday, 8am-6:30pm ? levETIRAcetam 1,000 mg tablet You can get these medications from any pharmacy Bring a paper prescription for each of these medicatio ns ? Bogdan Sanchez CASE MANAGEM on 06-09 CASE MANAGEM HNO ID: [id number] [facility] Author: Deborah Nash (Sw) Service: ? Author Type: Sash Maker Type: Care Mgt Progress Note Filed: 06/21/2020 12:41 PM Note Text: CARE MANAGEMENT PROGRESS NOTE SERVICE DATE: 06/21/2020 SERVICE TIME: 12:39 PM LOS: 4 days Progress note Referral sent [facility], [facility], [place], [facility],and [facility] for PT/OT. Awaiting acceptance. SIGNATURE: PAMELA Shepherd PATIENT NAME: Meryl santana DATE: June 21, 2020 TIME: 12:39 PM PAGER/CONTACT #: [phone] CASE MANAGEM HNO ID: [id number] [facility] Author: Rita StephensonRn) MANDY Baeza [...] 21, 2020 TIME: 4:03 PM PAGER/CONTACT #: [phone] NURSING PROG on 06-09 NURSING HNO ID: [id number] [facility] Author: Jessica Shay RN General Service: Nursing Medical Author Type: Registered Nurse Center Type: Nursing Progress Note Filed: 06/21/2020 8:36 AM Note Text: Nursing Progress Note Patient Name: Meryl Ogden Patient [id number] Wang of patient's elevated blood pressur e This note was completed by: Jessica Shay RN PROGRESS on 06-21-20 20 PROGRESS HNO ID: [id number] Normal [facility] Medical Author: Destinee Sampson) Gama south [...] 06/20/206[address] - 06/21/2065806/21/20 07 - 0659 Shift 1640-6584 8846-2434 4377-9814 24 Hour Total 0700 -1459 4214-5575 2040-9919 24 Hour Total INTAKE PO 240 240 PO 240 240 IV 50 50 Volume (mL) (magnesium sulfate in sterile water 2 g in sterile water 50 ml) 50 50 Shift Total 290 290 OUTPUT Urine 1300 5602 058 0233 200 200 Void (ml) 1300 3244 388 0181 200 200 Shift Total 1300 5100 772 3038 200 200 Weight (kg) 68.5 68.5 68.4 [...] h/o chronic alcohol abuse pres ents to [facility] with a subdural hematoma?s/p?fall from his porch. [...] on Weekends and Holidays, please page [phone] if in ICU or [phone] if on RNF. THERAPY NT on 2019 THERAPY NT HNO ID: [id number] Normal [facility] Author: Kentrell (Pt) [facility] Service: Physical Therapy Author Type: Physical Therapist Type: Therapy (PT/OT/Speech/Resp) Filed: 06/21/2020 9:07 AM Note Text: Physical Therapy Treatment SERVICE DATE: 06/21/2020 SERVICE TIME: 0835 to 0900 ROOM: [place] [address] Recommended Discharge Disposition: Home PT Recommended Discharge [...] return home at this time to a [facility] for improved activity tolerance and safe [...] (generalized);Unsteadiness on feet Interventions Provided: Gait Training (30447);Therapeu tic Exercise (75848) Therapeutic Exercise (09066) Treatment Minutes: 10 1 unit Skilled Intervention(s): [...] ues provided for proper performance. Gait Training (84320) Treatment Minutes: 15 1 unit Skilled Intervention(s): [...] TIME: 9:03 AM THERAPY NT HNO ID: [id number] Normal [facility] Author: Yuly StephensonOt/L) [facility] Service: ? Author Type: Occupational Therapist Type: Therapy (PT/OT/Speech/Resp) Filed: 06/21/2020 9:58 AM Note Text: Occupational Therapy Treatment SERVICE DATE: 06/21/2020 SERVICE TIME: 924 to 939 ROOM: [id number] Recommended Discharge Disposition: Home OT Recommended Discharge [...] Cognitive Functions and Awareness Interventions Provided: Self Custodial Management (975 35);Cognitive Training (04227 and 35333) 2019 New Self Custodial Management (57557) Treatment Minutes: 7 Skilled Intervention(s): Instructed in [...] understanding. 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 Reviewed answers with patient; receptive, verb alized understanding. Total Timed Code Treatment Minutes: 15 Total Treatment Time (minutes): 15 SUBJECTIVE: Current Hospital Course: Chart reviewed; [facility] protocol during admission. Reason for Occupational [...] Deficits Orientation Deficits: Not oriented to Place(Knew [facility]; didnt know city (he is from [place])) Responsiveness: Alert;Awake Follows Commands: 2-step Commands;3-step Commands [...] Activity: Functional mobility to and from [facility] Standing Activity Tolerance (in minutes): 2 [...] Anion gap [Moles/Vol] 11 mmol/L Normal 9-18 [facility] Comment on above: Performed By: #### CMP #### [facility] [address] [place] [address] Calcium [Mass/Vol] 9.7 mg/dL Normal 8.5-10.2 [facility] Comment on above: Performed By: #### CMP #### [facility] [address] [place] [address] Chloride [Moles/Vol] 98 mmol/L Normal 97-105 [facility] Comment on above: Performed By: #### CMP #### [facility] [address] [place] [address] CO2 Blood 26 mmol/L Normal 22-30 [facility] Comment on above: Performed By: #### CMP #### [facility] [address] [place] [address] Creatinine [Mass/Vol] 0.54 mg/dL Low 0.73-1.22 [facility] Comment on above: Performed By: #### CMP #### [facility] [address] [place] [address] Glucose [Mass/Vol] 112 mg/dL High 74-99 [facility] Comment on above: Result Comment: The [place] Diabetes Association (ADA) provides guidance for cutoff [...] Standards of Medical Care in Diabetes 2016; [place] [employer] Association. Diabetes Care. 2016;39(Suppl 1). Performed By: #### CMP #### [facility] [address] [place] [address] Potassium [Moles/Vol] 3.9 mmol/L Normal 3.7-5.1 [facility] Comment on above: Performed By: #### CMP #### [place] [address] Sodium [Moles/Vol] 135 mmol/L Low 136-144 [facility] Comment on above: Performed By: #### CMP #### [facility] [address] [place], [place] [address] Urea nitrogen [Mass/Vol] 12 mg/dL Normal 9-24 [facility] Comment on above: Performed By: #### CMP #### [address] [address] Hemogram on 06-20-20 20 Erythrocyte distribution width 12.7 % Normal 11.6-14.4 [facility] (RBC) [Ratio] Comment on above: Performed By: #### PT #### [facility] [address] [place], [place] [address] Hematocrit (Bld) [Volume fraction] 36.3 % Low 40.1-5 1.0 [facility] Comment on above: Performed By: #### PT #### [facility] [address] [place], [place] [address] Hemoglobin (Bld) [Mass/Vol] 12.7 g/dL Low 13.7-17.5 [facility] Comment on above: Performed By: #### PT #### [facility] [address] [place] [address] MCH (RBC) [Entitic mass] 34.0 pg High 25.7-32.2 [facility] Comment on above: Performed By: #### PT #### [facility] [address] [place] [address] MCHC (RBC) [Mass/Vol] 35.0 % Normal 32.3-36.5 [facility] Comment on above: Performed By: #### PT #### [facility] [address] [place] [address] MCV (RBC) [Entitic vol] 97.1 fL High 83.2-95.[address] [facility] Comment on above: Performed By: #### PT #### [facility] [address] [place] [address] Platelet mean volume (Bld) 11.2 fL Normal 8.7-12.0 [facility] [Entitic vol] Comment on above: Performed By: #### PT #### [facility] [address] [place] [address] Platelets (Bld) [#/Vol] 70 thou/cmm Low 141-[address] [facility] Comment on above: Result Comment: Geni dotson agrees with platelet count Performed By: #### PT #### [facility] [address] [place] [address] RBC (Bld) [#/Vol] 3.74 mil/cmm Low 4.63-6.08 [facility] Comment on above: Performed By: #### PT #### [facility] [address] [place] [address] RDW SD 44.6 fl Normal 36.1-45.8 [facility] Comment on above: Performed By: #### PT #### [facility] [address] [place] [address] WBC (Bld) [#/Vol] 4.78 thou/cmm Normal 4.23-9.07 [facility] Comment on above: Performed By: #### PT #### [facility] [address] [place] [address] MDRD GFR on 06-20-20 GFR/1.73 sq M predicted mL/min/{1.73_m2} Normal >60mL/min/1.7 3m2 [facility] among non-blacks MDRD System (S/P/Bld) [Vol rate/Area] Comment on above: Result Comment: If the patie nt is , multiply the result by 1.210. Performed By: #### GFR #### [facility] [address] [place], [place] [address] PROGRESS on 06-20-20 PROGRESS HNO ID: [id number] Normal [facility] Author: Shelbi Downey [facility] Service: General Surgery Med ical Author [...] on Weekends and Holidays, please page [phone] if in ICU or [phone] if on RNF. SUBJECTIVE: ERICH, patient articulate [...] - 06/20/20 0659 06/20/206[address] - 0659 Shift 6374-4392 8756-6239 3204-3762 24 Hour Total 00 -1458 2583-2424 1263-9322 24 Hour Total INTAKE PO 240 600 840 240 240 PO 240 600 840 240 240 Shift Total 240 600 840 240 240 OUTPUT Urine 350 724 715 6714 500 500 Void (ml) 350 257 250 1189 500 500 Urine Incontinence/Not Saved 1 x 1 x Shift Total 350 220 375 5831 500 500 Weight (kg) 68.5 68.5 68.5 [...] h/o chronic alcohol abuse pres ents to [facility] with a subdural hematoma?s/p?fall from his porch. [...] on Weekends and Holidays, please page 21 if in ICU or [phone] if on RNF. Basic Metabolic Panel on 06-19-2020 Anion gap [Moles/Vol] 11 mmol/L Normal 9-18 [facility] Comment on above: Performed By: #### CMP #### [facility] [address] [place], [place] [address] Calcium [Mass/Vol] 9.2 mg/dL Normal 8.5-10.2 [facility] Comment on above: Performed By: #### CMP #### [facility] [address] [place], [place] [address] Chloride [Moles/Vol] 101 mmol/L Normal 97-105 [facility] Comment on above: Performed By: #### CMP #### [facility] [address] [place], [place] [address] CO2 Blood 25 mmol/L Normal 22-30 [facility] Comment on above: Performed By: #### CMP #### [facility] [address] [place], [place] [address] Creatinine [Mass/Vol] 0.52 mg/dL Low 0.73-1.22 [facility] Comment on above: Performed By: #### CMP #### [facility] [address] [place], [place] [address] Glucose [Mass/Vol] 106 mg/dL High 74-99 [facility] Comment on above: Result Comment: The [place] Diabetes Association (ADA) provides guidance for cutoff [...] Standards of Medical Care in Diabetes 2016; [place] [employer]. Diabetes Care. 2016;39(Suppl 1). Performed By: #### CMP #### [facility] [address] [place] [address] Potassium [Moles/Vol] see below Normal 3.7-5.1 [facility] Comment on above: Result Comment: Unable to as say. Specimen Hemolyzed Performed By: #### CMP #### [facility] [address] [place] [id number] Sodium [Moles/Vol] 137 mmol/L Normal 136-144 [facility] Comment on above: Performed By: #### CMP #### [facility] [address] [place], [place] [address] Urea nitrogen [Mass/Vol] 8 mg/dL Low 9-24 [facility] Comment on above: Performed By: #### CMP #### [facility] [address] [place], [place] [address] CASE MANAGEM on 06-09 CASE MANAGEM HNO ID: [id number] Normal [facility] Author: Maggy (Sw) Isra Ce nter Service: ? Author Type: Sash Maker Type: Care Mgt Progress Note Filed: 06/19/2020 9:35 AM Note Text: CARE MANAGEMENT PROGRESS NOTE SERVICE DATE: 06/19/2020 SERVICE TIME: 9:29 AM LOS: 2 days Needs Prior to Discharge: Precertification;Discharge T ransportation Chart reviewed. Pt CIWA score increased overnight and pt now in soft restraints and has received Ativan. Pt attempted to le ave AMA and was experiencing visual hallucinations. [place] [facility] has accepted and will start precert today a nticipating it will be back on Monday or Monday. Plan at this time is [facility] if pt still agreeable once mental status clears and withdrawal symptoms improve. SIGNATURE: WILLIAM Quiroga PATIENT NAME: Meryl santana DATE: June 19, 2020 TIME: 9:29 AM PAGER/CONTACT #: [phone] CASE MANAGEM HNO ID: [id number] Normal [facility] Author: Maggy Mejia (Sw) nter Service: ? Author Type: Sash Maker Type: Care Mgt Progress Note Filed: 06/19/2020 12:28 PM Note Text: CARE MANAGEMENT PROGRESS NOTE SERVICE DATE: 06/19/2020 SERVICE TIME: 12:09 PM LOS: 2 days Needs Prior to Discharge: Accepting Facility;Precertif ication;Discharge Transportation;Bed Availability;To Be Determined Received call from Ingrid at [facility] who reports the medical communication specialist has denied pt's acceptance due to frequent [place] ED visits for alcohol intoxication and falls/head injuries. Per Ingrid, the m edical director does not think he will stay inpatient and/or follow-up or c omply with his care appropriately. Spoke with pt's Mother Maury Ogden [phone] who is pt's NOK. Discussed [facility] vs. SNF and pt's ambivalence about placem ent. Sent Maury a choice list for SNF so she can review choices and assi st pt once his mental status improves. Maury reports she was attempting to get in touch wit h pt's disability orchestra teacher but pt could not remember the name and she has been unsuccessful in cold searching. Plan: Await improvement in mental status for dispo russel nning with pt. Anticipate SNF placement. SIGNATURE: WILLIAM Quiroga PATIENT NAME: Meryl santana DATE: June 19, 2020 TIME: 12:09 PM PAGER/CONTACT #: [phone] Hemogram on 06-19-20 20 Erythrocyte distribution width 13.1 % Normal 11.6-14.4 [facility] (RBC) [Ratio] Comment on above: Performed By: #### CMP #### [facility] [address] [place] [address] Hematocrit (Bld) [Volume fraction] 36.2 % Low 40.1-5 1.0 [facility] Comment on above: Performed By: #### CMP #### [facility] [address] [place] [address] Hemoglobin (Bld) [Mass/Vol] 12.6 g/dL Low 13.7-17.5 [facility] Comment on above: Performed By: #### CMP #### [facility] [address] [place], [place] [address] MCH (RBC) [Entitic mass] 34.1 pg High 25.7-32.2 [facility] Comment on above: Performed By: #### CMP #### [facility] [address] [place], [place] [address] MCHC (RBC) [Mass/Vol] 34.8 % Normal 32.3-36.5 [facility] Comment on above: Performed By: #### CMP #### [facility] [address] [place], [place] [address] MCV (RBC) [Entitic vol] 98.1 fL High 83.2-95.[address] [facility] Comment on above: Performed By: #### CMP #### [facility] [address] [place], [place] [address] Platelet mean volume (Bld) 12.0 fL Normal 8.7-12.0 [facility] [Entitic vol] Comment on above: Performed By: #### CMP #### [facility] [address] [place], [place] [address] Platelets (Bld) [#/Vol] 56 thou/cmm Low 141-[address] [facility] Comment on above: Result Comment: Smear jovanni melendez tech agrees with platelet count Performed By: #### CMP #### [facility] [address] [place] [address] RBC (Bld) [#/Vol] 3.69 mil/cmm Low 4.63-6.08 [facility] Comment on above: Performed By: #### CMP #### [facility] [address] [place] [address] RDW SD 46.2 fl High 36.1-45.8 [facility] Comment on above: Performed By: #### CMP #### [facility] [address] [place] [address] WBC (Bld) [#/Vol] 5.07 thou/cmm Normal 4.23-9.07 [facility] Comment on above: Performed By: #### CMP #### [facility] [address] [place] [address] Magnesium Blood on 0 06-19-2020 Magnesium [Mass/Vol] 1.7 mg/dL Normal 1.7-2.3 [facility] Comment on above: Performed By: #### CMP #### [facility] [address] [place] [address] NURSING PROG on 06-09 NURSING HNO ID: [id number] Normal [facility] PROG Author: Senait StephensonRn) MANDY [place] General Service: Nursing Medical Author Type: Registered Nurse Center Type: Nursing Progress Note Filed: 06/19/2020 1:28 AM Note Text: Nursing Progress Note Patient Name: Meryl Ogden Patient Location: [id number] Daily Note: Patient attempting to get out [...] was completed by: Senait [place], RN 2300: Music Worker, Anabelle, up to see patient. Multiple [...] to be primary contact. NURSING HNO ID: [id number] Normal [facility] PROG Author: Senait (Rn) MANDY [place] General Service: Nursing Medical Author Type: Registered Nurse Center Type: Nursing Progress Note Filed: 06/18/2020 11:57 PM Note Text: Nursing Progress: Topic: RESTRAINT NON-VIOLENT PATIENT NAME: Meryl Ogden PATIENT LOCATION: [place] [address] [address] The patient demonstrates Confusion, Lack of Understand ing/Ability to Comply with Safety Directions, Impulsive Behavior, [place] bility to be Redirected, Inability to Retain [...] Low/Lo cked Position, Call Light Within Reach, Armored Machine Operator/Sitter, Diversion Activi ties, Gauze Wrap/Sleeve [...] PM Senait [place] RN NURSING HNO ID: [id number] [facility] Author: Gracie (Rn) MANDY Dolan General Service: ? Medical Author Type: Registered Nurse Center Type: Nursing Progress Note Filed: 06/19/2020 1:45 PM Note Text: Nursing Progress: Topic: RESTRAINT NON-VIOLENT PATIENT NAME: Meryl Ogden PATIENT LOCATION: [place] [address] [address] The patient demonstrates Confusion, Lack of Understand [...] Low/Lo cked Position, Call Light Within Reach, Armored Machine Operator/Sitter, Diversion Activi ties, Gauze Wrap/Sleeve [...] AM Gracie Dolan RN NURSING HNO ID: [id number] [facility] Author: Gracie (Rn) MANDY Dolan General Service: ? Medical Author Type: Registered Nurse Center Type: Nursing Progress Note Filed: 06/19/2020 3:27 PM Note Text: Nursing Progress Note Patient Name: Meryl Ogden Patient Location: [place] [address] [address]- RN removed restraints for patient to feed [...] on 06-09 PLAN OF CARE HNO ID: [id number] [facility] Author: Joey Bearden Service: General Surgery Author Type: Resident Type: Plan of Care Filed: 06/18/2020 10:40 PM Note Text: S: Was paged by nurse that patient was getting dressed and was planning to leave AMA. Patient was confused and alerted. He had a CIWA score of 16. He was [id number]. Patient had pulled out 2 IVs. O: [...] PGY-1 PROGRESS on 06-19-20 PROGRESS HNO ID: [id number] Normal [facility] Author: Joey (Res) Suleiman vance Service: General [...] and on Weekends and Holidays, please page [phone] if in ICU or [phone] if on RNF. SUBJECTIVE: Overnight the patient [...] he was in a rock room in [place]. He states he did not know who he was shira santana stated today was 1973. 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 While pointing to the TV shira santana [...] 0659 06/19/20 07 - 09/27 0659 Shift 2707-5254 1289-4507 6608-5563 24 Hour Total 0700 -1459 1934-8065 1050-1501 24 Hour Total INTAKE PO 600 240 40 880 PO 600 240 40 880 Shift Total 600 240 40 880 OUTPUT Urine 900 203 817 7041 Void (ml) 900 358 977 5364 Urine Incontinence/Not Saved 1 x 1 x Shift Total 900 317 956 9983 Weight (kg) 68.5 68.5 68.5 68.5 68.5 [...] h/o chronic alcohol abuse pres ents to [facility] [place] with a subdural hematoma s/p fall from [...] page [phone] if in ICU or [phone] if on RNF. THERAPY NT on 2019 THERAPY NT HNO ID: [id number] Normal Surekha stark Author: Eva (Pt) [facility] Service: Physical Therapy Author Type: Physical Therapist Type: Therapy (PT/OT/Speech/Resp) Filed: 06/19/2020 2:35 PM Note Text: Physical Therapy Treatment SERVICE DATE: 06/19/2020 SERVICE TIME: 1359 to 1419 ROOM: [place] [address] Recommended Discharge Disposition: Acute Rehab Recommended Discharge [...] (generalized);Unsteadiness on feet Interventions Provided: Therapeutic Activity (35300) Therapeutic Activity (32716) Treatment Minutes: 20 1 unit Skilled Intervention(s): [...] Anion gap [Moles/Vol] 9 mmol/L Normal 9-18 [facility] Comment on above: Performed By: #### CMP #### [facility] [address] [place], [place] [address] Calcium [Mass/Vol] 8.3 mg/dL Low 8.5-10.2 [facility] Comment on above: Performed By: #### CMP #### [facility] [address] [place], [place] [address] Chloride [Moles/Vol] 95 mmol/L Low 97-105 [facility] Comment on above: Performed By: #### CMP #### [facility] [address] [place], [place] [address] CO2 Blood 30 mmol/L Normal 22-30 [facility] Comment on above: Performed By: #### CMP #### [facility] [address] [place], [place] [address] Creatinine [Mass/Vol] 0.56 mg/dL Low 0.73-1.22 [facility] Comment on above: Performed By: #### CMP #### [facility] [address] [place], [place] [address] Glucose [Mass/Vol] 110 mg/dL High 74-99 [facility] Comment on above: Result Comment: The [place] Diabetes Association (ADA) provides guidance for cutoff [...] Standards of Medical Care in Diabetes 2016; [place] [employer]. Diabetes Care. 2016;39(Suppl 1). Performed By: #### CMP #### [facility] [address] [place] [address] Potassium [Moles/Vol] 3.3 mmol/L Low 3.7-5.1 [facility] Comment on above: Performed By: #### CMP #### [facility] [address] [place] [address] Sodium [Moles/Vol] 134 mmol/L Low 136-144 [facility] Comment on above: Performed By: #### CMP #### [facility] [address] [place], [place] [address] Urea nitrogen [Mass/Vol] 7 mg/dL Low 9-24 [facility] Comment on above: Performed By: #### CMP #### [place] [id number] CASE MANAGEM on 06-09 CASE MANAGEM HNO ID: [id number] Normal [facility] Author: Maggy Dhaliwal (Sw) [facility] Service: ? Author Type: Sash Maker Type: Care Mgt Progress Note Filed: 06/18/2020 [...] and reports having t wo BA in Italian and Philosophy Support System: Family: Mom and dad Friend(s) Status (Including History of Combat Experienc e): None Legal History:Patient/Rn First Assist Denies Sabianist/Spirituality: Mennonite and not practicing Do Special Considerations/Accommodations Need to be Ma de? No Are There Practices or Beliefs That May Affect or Infl uence Care? No, Patient/Rn First Assist Denies Patient Strengths/Protective Factors: Able to Communicate [...] Yes - Do you ever drink an eye-finish opener in the morning to re lieve shakes? No Offered Patient Resources: Yes DISCHARGE RECOMMENDATIONS: Medical Follow-Up, Relinkage With Previous Provider(s) and Acute Rehab Patient/Rn First Assist Agreeable With Discharge Recomm endations At This Time? Yes OBSTACLES TO TREATMENT/POST-DISCHARGECHALLENGES: Limited/No Income Multiple Psychosocial Stressors Substance Abuse Transportation Difficulties Met with pt at bedside. Pt was cooperative and pleasan t. Pt reports he struggled heavily with drinking starting in as his marriage fell apart. Pt states he is active with a t herapist at [facility] in [place] and plans to continue with this agency. [...] as evidenced by forgetting his is in [place] and where his children live. Pt was able to eventually recollect that he and his children live in [place], [place] and he is currently in [place]. 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 He has been relying on his parents to assist wit h finances and states he has no concerns at this time because he has his parents to lean on. Pt declined any financial resources. Pt states he has some very good friends who live in [place], and two friends John caceres lincoln Hollis, [...] continue to follow. CASE MANAGEM HNO ID: [id number] Dimitrios stark Author: Maggy (William) Is[facility] Service: ? Author Type: Sash Maker Type: Care Mgt Progress Note Filed: 06/18/2020 2:09 PM Note Text: CARE MANAGEMENT PROGRESS NOTE SERVICE DATE: 06/18/2020 SERVICE TIME: 2:07 PM LOS: 1 day [place] of Choice Given: Yes Level of Care Discussed: Inpatient Rehab Facility Financial Disclosure Provided: Yes Provider List: Rehab Facility Provider list within the patient's requested geographi c area shared with the patient/family: Yes within: 25 miles of zip code: [address] Quality and resource use metrics shared with the patie nt that are relevant to the patient's goals of care and treatment preferenc es:: Yes Metrics: Functional Status;Cognitive Status;Resource U se;Discharge to [facility] Discussed [place] with pt and facilities in [facility]. P t agreeable to referral to [facility]. Referral placed. SIGNATURE: WILLIAM Quiroga PATIENT NAME: Meryl santana DATE: June 18, 2020 TIME: 2:07 PM PAGER/CONTACT #: [phone] Hemogram on 06-18-20 20 Erythrocyte distribution width 12.6 % Normal 11.6-14.4 [facility] (RBC) [Ratio] Comment on above: Performed By: #### CMP #### [place] [address] Hematocrit (Bld) [Volume fraction] 35.2 % Low 40.1-5 1.0 [facility] Comment on above: Performed By: #### CMP #### [place] [address] Hemoglobin (Bld) [Mass/Vol] 12.1 g/dL Low 13.7-17.5 [facility] Comment on above: Performed By: #### CMP #### [place] [address] MCH (RBC) [Entitic mass] 33.0 pg High 25.7-32.2 [facility] Comment on above: Performed By: #### CMP #### [facility] [address] [place] [address] MCHC (RBC) [Mass/Vol] 34.4 % Normal 32.3-36.5 [facility] Comment on above: Performed By: #### CMP #### [place] [address] MCV (RBC) [Entitic vol] 95.9 fL High 83.2-95.6 [facility] Comment on above: Performed By: #### CMP #### [facility] [address] [place], [place] [address] Platelet mean volume (Bld) 10.8 fL Normal 8.7-12.0 [facility] [Entitic vol] Comment on above: Performed By: #### CMP #### [facility] [address] [place], [place] [address] Platelets (Bld) [#/Vol] 51 thou/cmm Low 141-[address] [facility] Comment on above: Performed By: #### CMP #### [facility] [address] [place], [place] [address] RBC (Bld) [#/Vol] 3.67 mil/cmm Low 4.63-6.08 [facility] Comment on above: Performed By: #### CMP #### [facility] [address] [place], [place] [address] RDW SD 44.4 fl Normal 36.1-45.8 [facility] Comment on above: Performed By: #### CMP #### [facility] [address] [place], [place] [address] WBC (Bld) [#/Vol] 4.67 thou/cmm Normal 4.23-9.07 [facility] Comment on above: Performed By: #### CMP #### [facility] [address] [place], [place] [address] NURSING PROG on 06-09 NURSING PROG HNO ID: [id number] Normal [facility] Author: Jane (Rn) MANDY Cohen Service: Orthopaedic Surgery Author Type: Registered Nurse Type: Nursing Progress Note Filed: 06/18/2020 7:45 PM Note Text: Patient now with CIWA score of 16. Ativan 1 mg PO give n per orders. Pt is confused, thinks he is at the [facility]. Reoriented to place and time. Pt also stated that the ceiling looked like the floor . Noted mild tremors of hands. Pt pulled out IV's x 2, stating the tape was itching me, so I thought it was the best thing to do. Pt has set-off bed alarm multiple times during this shift, stating I thought y ou were calling me. Nursing concrete stone finishing supervisor notified that patient may need a si tter for the shift mechanic. PLAN OF CARE on 06-09 PLAN OF CARE HNO ID: [id number] [facility] Author: Simran Lyons) Katharine Dunmore Service: Neurosurgery Author Type: Physician Tour Bus Driver Type: Plan of Care Filed: 06/18/2020 5:04 PM Note Text: Neurosurgery 06/18/2020 Imaging reviewed with Hany. CT stable. Follow up ap pointment requested in [address] Leach. Will SO. Smiran Alcantar PA-C Pager: [phone] PROGRESS on 06-18-20 PROGRESS HNO ID: [id number] [facility] Author: Shashank Hernandez Dunmore Service: General Surgery Author Type: Physician Type: Progress Notes Filed: 06/18/2020 5:05 PM Note Text: Trauma Surgery Progress Note SERVICE DATE: 06/18/2020 Trauma Service Pager: For questions or concerns Mon-Fri 6a-5p please page [phone]. After 5pm and on Weekends and Holidays, please page [phone] if in ICU or [phone] if on RNF. SUBJECTIVE: No acute events. [...] 06/17/[address] - 06/18/2065806/18/20699 - 08/28 0659 Shift 0384-0184 4476-6677 2559-8636 24 Hour Total 699 -1458 9157-1371 2978-1850 24 Hour Total INTAKE PO 360 240 600 PO 360 240 600 Shift Total 360 240 600 OUTPUT Urine 850 590 860 3426 Void (ml) 764 946 5337 Output ([REMOVED] External Collection Device 06/28 0300 06/17/20 1330) 850 850 Emesis 100 100 Emesis (ml) 100 100 Shift Total 950 716 518 7819 Weight (kg) 68 68 68.5 68.5 68.5 [...] h/o chronic alcohol abuse pres ents to [facility] with a subdural hematoma s/p fall from [...] on Weekends and Holidays, please page [phone] if in ICU or [phone] if on RNF. Attending Note I evaluated [...] on 06-18-2020 MRSA PCR SEE BELOW Normal [facility] Comment on above: Result Comment: Negative for MRSA by PCR. Performed By: #### CMP #### [place] [address] S aureus Spec Source NASAL Normal [facility] Comment on above: Performed By: #### CMP #### [place] [address] Staph aureus PCR SEE BELOW Abnormal [facility] Comment on above: Result Comment: Positive for Staphylococcus aureus by PCR.(*) Performing Laboratory: [facility] [address] [place] [address] Performed By: #### CMP #### [facility] [address] [place], [place] [address] THERAPY NT on 2019 THERAPY NT HNO ID: [id number] Normal Surekha stark Author: Corbin (Ccc-Gas Station Clerk) Mumtaz CCC/CERTIFIED [facility]INE MECHANIC [facility] Service: Speech/Swallow Author Type: Speech Language Pathologist Type: Therapy (PT/OT/Speech/Resp) Filed: 06/18/2020 12:21 PM Note Text: Speech Therapy Speech Evaluation SERVICE DATE: 06/18/2020 SERVICE TIME: 1135 to 1205 ROOM: [place] [address] Nursing Recommendations: Reinforce use of cognitive-communication strategies [...] dysfun ctions Interventions Provided: Speech Language Eval (23354) $ Speech Language Eval (10987) Billed Units: 1 unit Total Treatment Time (minutes): 30 SUBJECTIVE: Current Hospital Course: Chart reviewed; Diagnosis: Subdural hematoma Reason for admit: Patient presents with: Trauma Evaulation: Sent from [facility] for subdural azucena anisha and trauma consult. Patient was found on the ground on his porch with no recolection of how he got there. He is a daily drinker and was giv en ativan prior to arrival. No complaints at this time. Meryl is a 49 year old male who was brought her from [facility] ED for a subdural hematoma. He [...] this therapy evaluation/treatment . SIGNATURE: Corbin Pandya CCC-CERTIFIED MARINE MECHANIC PATIENT NAME: Adams Ogden DATE: June 18, 2020 TIME: 12:16 PM ABO/Rh Confirmation on 06-17-2020 ABO group Nom (Bld) B Normal [facility] Comment on above: Performed By: #### ALCO3 ### # [place] [address] RH Type Positive Normal [facility] Comment on above: Performed By: #### ALCO3 ### # [place] [address] Activated PTT on aPTT Coag (Bld) [Time] 27.9 s Normal 23.0-32.4 [facility] Comment on above: Result Comment: Unfractionat [...] AP TT reagent in use throughout the [facility]. Performed By: #### ALCO3 ### # [facility] [address] [place] [address] Alcohol, Serum on Alcohol, Serum 47.0 mg/dL High < 11 [facility] Comment on above: Performed By: #### ALCO3 ### # [place] [id number] Basic Metabolic Panel on 09-09-2020 Anion gap [Moles/Vol] 15 mmol/L Normal 9-18 [facility] Comment on above: Performed By: #### BMP #### [facility] [address] [place], [place] [address] Calcium [Mass/Vol] 8.0 mg/dL Low 8.5-10.2 [facility] Comment on above: Performed By: #### BMP #### [facility] [address] [place], [place] [address] Chloride [Moles/Vol] 96 mmol/L Low 97-105 [facility] Comment on above: Performed By: #### BMP #### [facility] [address] [place], [place] [address] CO2 Blood 26 mmol/L Normal 22-30 [facility] Comment on above: Performed By: #### BMP #### [facility] [address] [place], [place] [address] Creatinine [Mass/Vol] 0.50 mg/dL Low 0.73-1.22 [facility] Comment on above: Performed By: #### BMP #### [facility] [address] [place], [place] [address] Glucose [Mass/Vol] 67 mg/dL Low 74-99 [facility] Comment on above: Result Comment: The [place] Diabetes Association (ADA) provides guidance for cutoff [...] Standards of Medical Care in Diabetes 2016; [place] [employer]. Diabetes Care. 2016;39(Suppl 1). Performed By: #### BMP #### [facility] [address] [place], [place] [address] Potassium [Moles/Vol] see below Normal 3.7-5.1 [facility] Comment on above: Result Comment: Unable to as say. Specimen Hemolyzed Performed By: #### BMP #### [facility] [address] [place], [place] [address] Sodium [Moles/Vol] 137 mmol/L Normal 136-144 [facility] Comment on above: Performed By: #### BMP #### [facility] [address] [place], [place] [address] Urea nitrogen [Mass/Vol] 5 mg/dL Low 9-24 [facility] Comment on above: Performed By: #### BMP #### [facility] [address] [place], [place] [address] CASE MANAGEM on CASE MANAGEM HNO ID: [id number] Normal [facility] Author: Belén Canela) Elodia Gutierrez Service: Social Work Author Type: Sash Maker Type: Care Mgt Progress Note Filed: 06/17/2020 4:21 PM Note Text: CARE MANAGEMENT PROGRESS NOTE SERVICE DATE: 06/17/2020 SERVICE TIME: 4:04 PM LOS: 0 days Lengthy phone conversation with pt mother, Jacqueline Rodriguez ). Pt mother and father live in [place] at [facility]. Mother reports pt does not have income [...] 17, 2020 TIME: 4:04 PM PAGER/CONTACT #: [phone] CASE MGT INIT PRECIOUS on 06-17-2020 CASE MGT INIT PRECIOUS HNO ID: [id number] Normal [facility] Author: Belén Canela) [facility] Service: Social Work Author Type: Sash Maker Type: Care Mgt Initial Assessment Filed: 06/17/2020 3:42 PM Note Text: CARE MANAGEMENT: ASSESSMENT AND DISCHARGE PLAN SERVICE DATE: June 17, 2020 SERVICE TIME: 3:31 PM PRIMARY CARE PHYSICIAN: Yoko Glover MD ADMISSION STATUS: Inpatient Needs Prior to Discharge: To Be Determined MEDICAL: [facility] MEDICAID Patient/Rn First Assist Stated Goals: To have reduction in pain;To improve my functional status;To return home to life as it was Health Insurance: [employer];Medicaid Health Issues Impacting Discharge Plan: Newly diagnose d Newly Diagnosed: Subdural hematoma Last Discharge Date: N/A Is this Within the Past 30 days? Last discharge within 30 days: No Advance Directive: Current Advance Directive: None Parent Educator Attempted to Assist with AD Completion: Y [...] Information Primary Emergency Contact: GERONIMO VILLATORO Address: [address] [place], [place] [address] [address] Relation: Spouse Supportive Patient Contact:: Yes Contact [...] Completely I feel financially burdened by my uba-xj-ppjjma expens es for my prescription medication:: 0 [...] Yes - Do you ever drink an eye-finish opener in the morning to re lieve shakes? No FREEDOM OF CHOICE EXPLAINED: [place] of Choice Given: Yes Level of Care [...] his life. +PCP (Dr. Elmer Bravo - [facility]). Discussed plan of care and recommendation for acute re hab. Pt refusing stating he needs to d/c home. Declined conversation at this time re: home PT/OT. (PT 6 Clicks Score 14; OT 6 Clicks Score 14). Completed CAGE assessment with pt stating hx of substa nce use tx at [facility] in [place]. Discussed assessment and treatment supports available; Pt declined additional resource information at this ti me.. Education provided on cessation of use to encourage healthy life patterns. Transitional care plan: tbd; Home with [facility] SIGNATURE: DRE Whitaker PATIENT NAME: Meryl Ogden DATE: June 17, 2020 TIME: 3:31 PM PAGER/CONTACT #: [phone] CONSULT on 0 CONSULT HNO ID: [id number] Dimitrios [facility] Service: General Surgery Author Type: Resident Type: Consults Filed: 06/17/2020 12:02 AM Note Text: CONSULT: SICU Surgery Service SERVICE DATE: 06/16/2020 SERVICE TIME: 11:04 PM REASON FOR CONSULT: subdural hematoma REQUESTING PHYSICIAN: ED Subjective 49 year old male presents to [facility] as a transfer from [facility]. He apparently fell at home on [...] June 16, 2020 TIME: 11:04 PM Pager: [phone] CONSULT HNO ID: [id number] Normal [facility] Author: Yonatan Smith Service: Neurosurgery Author [...] head bleed. 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 Appliance Assembler (topogram) images: No additional findings. IMPRESSION: Unchanged size of acute on chronic extra-axial hemorrh age along right cerebral convexity measuring 8 mm in thickness. Slight ly increased dependent hyperdense component near vertex is likely r edistribution of acute hemorrhage. No CT evidence of acute cortical infarct. Chronic small vessel ischemic white matter disease and diffuse cerebral volume loss. Sas Bi Developer: PSCB Transcribe Date/Time: Jun 17 2020 7:40A Dictated by : CARLOS PELAEZ MD This examination was interpreted and the report review ed and electronically signed by: CARLOS PELAEZ MD on Jun 17 2020 7:49AM EST CT BRAIN WO IVCON Final Report Normal [employer] DATE OF EXAM: Jun 17 2020 4:03PM System [facility] 0504 - CT BRAIN WO [...] base and imaged soft tissues are unremarkable. Appliance Assembler (topogram) images: No additional findings. IMPRESSION: Unchanged acute on chronic extra-axial hemorrhages sophie ng right cerebral convexity, with minimal mass effect on right frontal l obe. No evidence of midline shift. Sas Bi Developer: PSCB Transcribe Date/Time: Jun 18 2020 7:24A Dictated by : CARLOS PELAEZ MD This examination was interpreted and the report review ed and electronically signed by: CARLOS PELAEZ MD on Jun 18 2020 7:31AM EST Comprehensive Metabolic Panel on 06-17-2020 Albumin [Mass/Vol] 4.0 g/dL Normal 3.9-4.9 [facility] Comment on above: Performed By: #### CMP #### [facility] [address] [place], [place] [address] ALP [Catalytic activity/Vol] 74 U/L Normal 38-113 [facility] Comment on above: Performed By: #### CMP #### [facility] [address] [place], [place] [address] ALT [Catalytic activity/Vol] 45 U/L Normal 10-54 [facility] Comment on above: Performed By: #### CMP #### [facility] [address] [place], [place] [address] Anion gap [Moles/Vol] 14 mmol/L Normal 9-18 [facility] Comment on above: Performed By: #### CMP #### [facility] [address] [place], [place] [address] AST [Catalytic activity/Vol] 140 U/L High 14-40 [facility] Comment on above: Performed By: #### CMP #### [facility] [address] [place], [place] [address] Bilirubin [Mass/Vol] 0.7 mg/dL Normal 0.2-1.3 [facility] Comment on above: Performed By: #### CMP #### [facility] [address] [place], [place] [address] Calcium [Mass/Vol] 7.9 mg/dL Low 8.5-10.2 [facility] Comment on above: Performed By: #### CMP #### [facility] [address] [place], [place] [address] Chloride [Moles/Vol] 98 mmol/L Normal 97-105 [facility] Comment on above: Performed By: #### CMP #### [facility] [address] [place], [place] [address] CO2 Blood 28 mmol/L Normal 22-30 [facility] Comment on above: Performed By: #### CMP #### [facility] [address] [place], [place] [address] Creatinine [Mass/Vol] 0.48 mg/dL Low 0.73-1.22 [facility] Comment on above: Performed By: #### CMP #### [facility] [address] [place], [place] [address] Glucose [Mass/Vol] 72 mg/dL Low 74-99 [facility] Comment on above: Result Comment: The [place] Diabetes Association (ADA) provides guidance for cutoff [...] Standards of Medical Care in Diabetes 2016; [place] [employer]. Diabetes Care. 2016;39(Suppl 1). Performed By: #### CMP #### [facility] [address] [place], [place] [address] Potassium [Moles/Vol] 3.0 mmol/L Low 3.7-5.1 [facility] Comment on above: Performed By: #### CMP #### [facility] [address] [place], [place] [address] Protein [Mass/Vol] 6.8 g/dL Normal 6.3-8.0 [facility] Comment on above: Performed By: #### CMP #### [facility] [address] [place], [place] [address] Sodium [Moles/Vol] 140 mmol/L Normal 136-144 [facility] Comment on above: Performed By: #### CMP #### [facility] [address] [place], [place] [address] Urea nitrogen [Mass/Vol] 6 mg/dL Low 9-24 [facility] Comment on above: Performed By: #### CMP #### [facility] [address] [place], [place] [address] ED NOTE on 0 ED NOTE HNO ID: [id number] [facility] Author: Kwasi (Rn) MANDY Rivera Service: Emergency Medicine Author Type: Registered Nurse Type: ED Notes Filed: 06/17/2020 12:16 AM Note Text: Patient swabbed for COVID and sent to lab ED PROV NOTE on ED PROV NOTE HNO ID: [id number] [facility] Author: DO Matt Negro Service: Emergency Medicine Author Type: Physician Type: ED Provider Notes Filed: 06/17/2020 12:30 AM Note Text: ED Provider Note Patient Name: Meryl Ogden SERVICE DATE: 06/16/20 History Patient presents with: Trauma Evaulation: Sent from [facility] for subdural azucena anisha and trauma consult. Patient was found on the ground on his porch with no recolection of how he got there. He is a daily drinker and was giv en ativan prior to arrival. No complaints at this time. SHAMIR Haji is a 49 year old male who was brought her from [facility] ED for a subdural hematoma. He was found on his front porch [facility] by his friend. He remember sitting on [...] 49 year old male who presented to [facility] ED from [place] for a subdural hematoma following and unwitnessed but suspected trama. Initial workup/management includes the following: Labs: CBC, CMP, GFR, lipase, Mg, ETOH level, Urine tox , PT/INR, COVID Meds: ativan, Zofran, fentanyl Imaging: CT brain, CT neck, CXR done at [facility] ED EKG: Normal At this time, the decision was made to admit the patie nt to the ICU for further management. I discussed this with the patient, who was agreeable to the plan. The patient was admitted to Dr. Wang in stable condition. SIGNATURE: Willow Daugherty (Hussein) MD Kwan Resident 06/16/20 9478 I performed a history and physical examination of the patient and discussed the management with the resident. I reviewed the resident's note and agree with the documented findings and plan of car e. Harini Nolen DO 06/17/20 0030 ED PROV NOTE HNO ID: [id number] Normal [facility] Author: Harini Nolen DO Center Service: [...] emergenc y department as a transfer from [place] for trauma evaluation found to h ave [...] before the episode. He was seen in [facility] where he had laboratory studies done [...] PHYSICAL on 06-17-2020 HISTORY PHYSICAL HNO ID: [id number] Normal [facility] Author: Shelbi Savage [facility] Service: General Surgery Author Type: Resident Type: HANDP Filed: 06/17/2020 8:48 AM Note Text: TRAUMA SURGERY HANDP [facility] ARRIVAL DATE: 06/16/2020 ARRIVAL TIME: 2129 CATEGORY: Level 3 INJURY DATE: 06/16/2020 INJURY TIME: 1600 Subjective 49 year old male presents to [facility] as a transfer from [facility]. He apparently fell at home on [...] the last 72 hour s. Invalid input(s): [facility] Assessment/Plan There are no active hospital problems to display for t his patient. 49 year old male with a h/o chronic alcohol abuse pres ents to [facility] with a subdural hematoma s/p fall from [...] on Weekends and Holidays, please page [phone] if in ICU or [phone] if on RNF. Hemogram on 06-17-20 20 Erythrocyte distribution width 13.0 % Normal 11.6-14.4 [facility] (RBC) [Ratio] Comment on above: Performed By: #### ALCO3 ### # [facility] [address] [place] [address] Erythrocyte distribution width 12.9 % Normal 11.6-14.4 [facility] (RBC) [Ratio] Comment on above: Performed By: #### CMP #### [place] [address] Hematocrit (Bld) [Volume fraction] 34.3 % Low 40.1-5 1.0 [facility] Comment on above: Performed By: #### ALCO3 ### # [place] [address] Hematocrit (Bld) [Volume fraction] 35.5 % Low 40.1-5 1.0 [facility] Comment on above: Performed By: #### CMP #### [place] [address] Hemoglobin (Bld) [Mass/Vol] 11.9 g/dL Low 13.7-17.5 [facility] Comment on above: Performed By: #### ALCO3 ### # [place] [address] Hemoglobin (Bld) [Mass/Vol] 12.2 g/dL Low 13.7-17.5 [facility] Comment on above: Performed By: #### CMP #### [address] [address] MCH (RBC) [Entitic mass] 33.6 pg High 25.7-32.2 [facility] Comment on above: Performed By: #### ALCO3 ### # [address] [address] MCH (RBC) [Entitic mass] 33.2 pg High 25.7-32.2 [facility] Comment on above: Performed By: #### CMP #### [facility] [address] [place] [address] MCHC (RBC) [Mass/Vol] 34.7 % Normal 32.3-36.5 [facility] Comment on above: Performed By: #### ALCO3 ### # [facility] [address] [place] [address] MCHC (RBC) [Mass/Vol] 34.4 % Normal 32.3-36.5 [facility] Comment on above: Performed By: #### CMP #### [facility] [address] [place] [address] MCV (RBC) [Entitic vol] 96.9 fL High 83.2-95.[address] [facility] Comment on above: Performed By: #### ALCO3 ### # [facility] [address] [place] [address] MCV (RBC) [Entitic vol] 96.7 fL High 83.2-95.[address] [facility] Comment on above: Performed By: #### CMP #### [facility] [address] [place] [address] Platelet mean volume (Bld) 11.2 fL Normal 8.7-12.0 [facility] [Entitic vol] Comment on above: Performed By: #### ALCO3 ### # [facility] [address] [place] [address] Platelet mean volume (Bld) 11.1 fL Normal 8.7-12.0 [facility] [Entitic vol] Comment on above: Performed By: #### CMP #### [facility] [address] [place] [address] Platelets (Bld) [#/Vol] 31 thou/cmm Critically low 141-365 [facility] Comment on above: Result Comment: Repeated AND verified Performed By: #### ALCO3 ### # [facility] [address] [place], [place] [address] Platelets (Bld) [#/Vol] 58 thou/cmm Low 141-[address] [facility] Comment on above: Result Comment: Smear scanne d tech agrees with platelet count Performed By: #### CMP #### [facility] [address] [place] [address] RBC (Bld) [#/Vol] 3.54 mil/cmm Low 4.63-6.08 [facility] Comment on above: Performed By: #### ALCO3 ### # [facility] [address] [place] [address] RBC (Bld) [#/Vol] 3.67 mil/cmm Low 4.63-6.08 [facility] Comment on above: Performed By: #### CMP #### [facility] [address] [place] [address] RDW SD 46.3 fl High 36.1-45.8 [facility] Comment on above: Performed By: #### ALCO3 ### # [facility] [address] [place] [address] RDW SD 45.6 fl Normal 36.1-45.8 [facility] Comment on above: Performed By: #### CMP #### [facility] [address] [place] [address] WBC (Bld) [#/Vol] 4.96 thou/cmm Normal 4.23-9.07 [facility] Comment on above: Performed By: #### ALCO3 ### # [facility] [address] [place] [address] WBC (Bld) [#/Vol] 4.45 thou/cmm Normal 4.23-9.07 [facility] Comment on above: Performed By: #### CMP #### [facility] [address] [place] [address] Hemogram/Diff on Abs Immature Grans 0.02 thou/cmm Normal 0.00-0.05 [facility] Comment on above: Performed By: #### CBCD1 ### # [facility] [address] [place] [address] Abs Neut (ANC) 2.94 thou/cmm Normal 1.78-5.38 [facility] Comment on above: Performed By: #### CBCD1 ### # [facility] [address] [place] [address] Abs. Baso 0.06 thou/cmm Normal 0.01-0.08 [facility] Comment on above: Performed By: #### CBCD1 ### # [facility] [address] [place] [address] Abs. [place] 0.47 thou/cmm Normal 0.30-0.82 [facility] Comment on above: Performed By: #### CBCD1 ### # [facility] [address] [place] [address] Basophils/100 WBC (Bld) 1.3 % Normal [facility] Comment on above: Performed By: #### CBCD1 ### # [facility] [address] [place] [address] Eosinophils (Bld) [#/Vol] 0.07 thou/cmm Normal 0.04-0.54 [facility] Comment on above: Performed By: #### CBCD1 ### # [facility] [address] [place] [address] Eosinophils/100 WBC (Bld) 1.5 % Normal [facility] Comment on above: Performed By: #### CBCD1 ### # [facility] [address] [place] [address] Erythrocyte distribution width 13.2 % Normal 11.6-14.4 [facility] (RBC) [Ratio] Comment on above: Performed By: #### CBCD1 ### # [facility] [address] [place] [address] Hematocrit (Bld) [Volume fraction] 36.0 % Low 40.1-5 1.0 [facility] Comment on above: Performed By: #### CBCD1 ### # [facility] [address] [place] [address] Hemoglobin (Bld) [Mass/Vol] 12.3 g/dL Low 13.7-17.5 [facility] Comment on above: Performed By: #### CBCD1 ### # [facility] [address] [place] [address] Immature Grans 0.40 % Normal [facility] Comment on above: Performed By: #### CBCD1 ### # [facility] [address] [place], [place] [address] Lymphocytes (Bld) [#/Vol] 1.10 thou/cmm Normal 0.84-2.85 [facility] Comment on above: Performed By: #### CBCD1 ### # [facility] [address] [place], [place] [address] Lymphocytes/100 WBC (Bld) 23.6 % Normal [facility] Comment on above: Performed By: #### CBCD1 ### # [facility] [address] [place], [place] [address] MCH (RBC) [Entitic mass] 33.1 pg High 25.7-32.2 [facility] Comment on above: Performed By: #### CBCD1 ### # [facility] [address] [place] [address] MCHC (RBC) [Mass/Vol] 34.2 % Normal 32.3-36.5 [facility] Comment on above: Performed By: #### CBCD1 ### # [facility] [address] [place], [place] [address] MCV (RBC) [Entitic vol] 96.8 fL High 83.2-95.[address] [facility] Comment on above: Performed By: #### CBCD1 ### # [facility] [address] [place], [place] [address] Monocytes/100 WBC (Bld) 10.1 % Normal [facility] Comment on above: Performed By: #### CBCD1 ### # [facility] [address] [place], [place] [address] Platelet mean volume (Bld) 11.1 fL Normal 8.7-12.0 [facility] [Entitic vol] Comment on above: Performed By: #### CBCD1 ### # [facility] [address] [place], [place] [address] Platelets (Bld) [#/Vol] 36 thou/cmm Critically low 141-365 [facility] Comment on above: Performed By: #### CBCD1 ### # [facility] [address] [place] [address] RBC (Bld) [#/Vol] 3.72 mil/cmm Low 4.63-6.08 [facility] Comment on above: Performed By: #### CBCD1 ### # [facility] [address] [place] [address] RDW SD 47.0 fl High 36.1-45.8 [facility] [employer] Comment on above: Performed By: #### CBCD1 ### # [facility] [address] [place] [address] Seg Neutrophil 63.1 % Normal [facility] Comment on above: Performed By: #### CBCD1 ### # [facility] [address] [place] [address] WBC (Bld) [#/Vol] 4.66 thou/cmm Normal 4.23-9.07 [facility] Comment on above: Performed By: #### CBCD1 ### # [facility] [address] [place] [address] Lipase Blood on Lipase Blood 37 U/L Normal 16-61 [facility] [employer] Comment on above: Performed By: #### LIP #### [facility] [address] [place] [address] Magnesium Blood on 0 06-17-2020 Magnesium [Mass/Vol] 1.2 mg/dL Low 1.7-2.3 [facility] Comment on above: Performed By: #### MAG #### [facility] [address] [place] [address] Magnesium [Mass/Vol] 1.9 mg/dL Normal 1.7-2.3 [facility] Comment on above: Performed By: #### ALCO3 ### # [facility] [address] [place] [address] PROGRESS on 06-17-20 PROGRESS HNO ID: [id number] Normal [facility] Author: Shashank Hernandez [place] Service: General Surgery Author Type: Physician Type: Progress Notes Filed: 07/13/2020 8:17 AM Note Text: Trauma Surgery Progress Note SERVICE DATE: 06/17/2020 Trauma Service Pager: For questions or concerns Mon-Fri 6a-5p please page [phone]. After 5pm and on Weekends and Holidays, please page [phone] if in ICU or [phone] if on [...] 68 kg (150 lb) SpO2 99% B CA 18.75 kg/m? O2 Therapy: Room Air IANDO: Date 06/16/20699 - 06/17/20 0606/17/206[address] - 07/28 0659 Shift 8820-7839 0130-4906 9678-6943 24 Hour Total 0700 -1459 2722-5828 3807-6147 24 Hour Total INTAKE IV 950 950 [...] h/o chronic alcohol abuse pres ents to [facility] with a subdural hematoma s/p fall from [...] on Weekends and Holidays, please page [phone] if in ICU or [phone] if on RNF. Attending Note I evaluated the patient and personally participated in the benjamin components on 06/17/2020 I agree with the resident's findings and plan as docum ented and have discussed the case and management of the patient's car e with the resident. Shashank Hernandez MD Delayed entry PROGRESS HNO ID: [id number] [facility] Author: [facility] Service: General Surgery Author Type: Physician [...] 0659 06/17/20 07 - 07/28 0659 Shift 9810-4321 6649-6143 0136-9431 24 Hour Total 0700 -1459 5939-2544 9800-8815 24 Hour Total INTAKE IV 950 950 [...] with chronic alcohol abuse who presented to [facility] with a subdural hematoma after a fall from his po [facility]. Hospital course: 06/17 CT brain [...] components of this encounter with the [facility] ICU team. I discussed [...] or SDU?: Yes, transfer to SDU or [facility] today Discharge Planning: To be determined SIGNATURE: Vidhya Wang MD PATIENT NAME: Meryl Ogden DATE: June 17, 2020 TIME: 10:12 AM PROGRESS HNO ID: [id number] Normal [facility] Author: Simran Lyons) [facility] Service: Neurosurgery Author Type: Physician Tour Bus Driver Type: Progress Notes Filed: 06/17/2020 3:12 PM [...] serial CT Brain -Keppra for seizure prophylaxis -[facility] protocol -Pain control -Discussed with Dr. Leach Medication and Non-Pharmacologic VTE Prophylaxis/Antic oagulants 06/17/20 0145 vte pharmacologic prophylaxis contraindi cated ([place], [place]) 06/17/20 0145 pneumatic compression stockings ([place]) VTE Prophylaxis: VTE prophylaxis appropriate SIGNATURE: Simran Alcantar PA-C PATIENT NAME: Meryl Ogden DATE: June 17, 2020 TIME: 2:59 PM PAGER/CONTACT #: Pager: [phone] Pheresed Platelets o n 06-17-2020 Pheresed Plts unit 1 Done Normal [facility] Comment on above: Performed By: #### ALCO3 ### # [facility] [address] [place] [address] Phosphorous Blood on 06-17-2020 Phosphate [Mass/Vol] 2.9 mg/dL Normal 2.7-4.8 [facility] Comment on above: Performed By: #### ALCO3 ### # [facility] [address] [place], [place] [address] Protime on 0 INR Coag (PPP) [Relative time] 1.09 {INR} Normal 0.90-1.30 [facility] Comment on above: Result Comment: Vitamin K An tagonist (VKA) Therapeutic Range: INR 2 to 3 (Target INR of 2.5) Note: For patients treated w ith VKA drugs, such as warfarin, the [place] [employer] 2012 Guideline recommends a therapeutic INR range of 2 to 3 (target INR of 2.5). This recommendation includes high -risk patients with antiphospholipid syndrome with previous arter ial or venous thromboembolism, current-generation mechanica l or bioprosthetic aortic heart valve replacement. Note: Patients with journeyman mechanic al aortic valve replacement and additional risk factors for thromboembolic events (atrial fibrillation, previous throm boembolism, LV dysfunction, hypercoagulable conditions) or an older generation mechanical AVR (i.e., ball in-Cage) or any mechanical MVR should have a INR therapeutic range of 2 .5 to 3.5 target INR of 3). Álvaro GH, et al. Chest 2012 ; 141:7S-47S Ada RA et al. [facility] 20 17; 70: 252-289 Performed By: #### PT #### [facility] [address] [place], [place] [address] INR Coag (PPP) [Relative time] 1.07 {INR} Normal 0.90-1.30 [facility] Comment on above: Result Comment: Vitamin K An tagonist (VKA) Therapeutic Range: INR 2 to 3 (Target INR of 2.5) Note: For patients treated w ith VKA drugs, such as warfarin, the [place] [employer] 2012 Guideline recommends a therapeutic INR range of 2 to 3 (target INR of 2.5). This recommendation includes high -risk patients with antiphospholipid syndrome with previous arter ial or venous thromboembolism, current-generation mechanica l or bioprosthetic aortic heart valve replacement. Note: Patients with journeyman mechanic al aortic valve replacement and additional risk factors for thromboembolic events (atrial fibrillation, previous throm boembolism, LV dysfunction, hypercoagulable conditions) or an older generation mechanical AVR (i.e., ball in-Cage) or any mechanical MVR should have a INR therapeutic range of 2 .5 to 3.5 target INR of 3). Álvaro SHEIKH, et al. Chest 2012 ; 141:7S-47S Ada PRICE et al. [facility] 20 17; 70: 252-289 Performed By: #### ALCO3 ### # [facility] [address] [place], [place] [address] PT Coag (PPP) [Time] 11.3 s Normal 9.7-13.0 [facility] Comment on above: Performed By: #### PT #### [facility] [address] [place] [address] PT Coag (PPP) [Time] 11.1 s Normal 9.7-13.0 [facility] Comment on above: Performed By: #### ALCO3 ### # [place] [address] Rapid, COVID 19 on 0 06-17-2020 Rapid, COVID 19 Negative Normal Negative [employer] Comment on above: Result Comment: This test castro s been authorized by the FDA under an Emergency Use Authorization (EUA). Performed By: #### RCOVD ### # [place] [address] THERAPY NT on 2019 THERAPY NT HNO ID: [id number] Normal [facility] [employer] Author: Yuly (Ot/L) [facility] Service: ? Author Type: Occupational Therapist Type: Therapy (PT/OT/Speech/Resp) Filed: 06/17/2020 10:29 AM Note Text: Occupational Therapy Evaluation SERVICE DATE: 06/17/2020 SERVICE TIME: 914 to 931 ROOM: [id number] Recommended Discharge Disposition: Acute Rehab Recommended Discharge [...] of coordination-other Interventions Provided: Evaluation $ Evaluation-Moderate (73364) Billed Units: 1 unit OT Evaluation Moderate [...] TIME: 10:25 AM THERAPY NT HNO ID: [id number] Normal [facility] Author: Bailey (Pt) Feliz [facility] Service: Physical Therapy Author Type: Physical Therapist Type: Therapy (PT/OT/Speech/Resp) Filed: 06/17/2020 2:50 PM Note Text: Physical Therapy Evaluation SERVICE DATE: 06/17/2020 SERVICE TIME: 931 to 947 ROOM: [place] [address] Recommended Discharge Disposition: Acute Rehab Recommended Discharge [...] on feet Interventions Provided: Evaluation $ Evaluation-Moderate (79214) Billed Units: 1 unit History and examination [...] on 0 9-09-2020 Comment See Below Normal [facility] Comment on above: Result Comment: Screen &/or Xmatch expires in 3 days at 12 midnight. Redraw patient at that time. Performed By: #### ALCO3 ### # [facility] [address] [place], [place] [address] Urine Drug Screen on 06-17-2020 Urine Alcohol 87 mg/dL High 0-11 [facility] Comment on above: Performed By: #### UDRG3 ### # [facility] [address] [place] [address] Urine Amphetamine Negative Normal NEGATIVE [facility] Comment on above: Performed By: #### UDRG3 ### # [facility] [address] [place], [place] [address] Urine Barbiturates Negative Normal NEGATIVE [facility] Comment on above: Performed By: #### UDRG3 ### # [facility] [address] [place] [address] Urine Benzodiazepine Negative Normal NEGATIVE [facility] Comment on above: Performed By: #### UDRG3 ### # [facility] [address] [place] [address] Urine Cocaine Metab Negative Normal NEGATIVE [facility] Comment on above: Performed By: #### UDRG3 ### # [facility] [address] [place] [address] Urine Opiates Negative Normal NEGATIVE [facility] Comment on above: Performed By: #### UDRG3 ### # [facility] [address] [place] [address] Urine Oxycodone Negative Normal NEGATIVE [facility] Comment on above: Performed By: #### UDRG3 ### # [facility] [address] [place] [address] Urine PCP Negative Normal NEGATIVE [facility] Comment on above: Result Comment: Test Cutoff Unit Amphetamines 1000 ng/mL Barbiturates 200 ng/mL Benzodiazepines 200 ng/mL Cannabinoids 50 ng/mL Cocaine 300 ng/mL Opiates 300 ng/mL Oxycodone 100 ng/mL Phencyclidine 25 ng/mL Reference Range: Negative at cutoff threshold Immunoassay screen only. Liquor Bridge Operator Helper ss reactivity with other substances can occur [...] the same specimen through the laboratory at ([phone]) if contact ed within 48 hours of initial 1. Substance Abuse and [facility] Administration (2012). [facility] Drug Testing in Primary Care Technical Assistance Publica tion Series 32. Department of Health and Human Services, [place], p.10. Performed By: #### UDRG3 ### # [facility] [address] [place], [place] [address] Urine THC Negative Normal NEGATIVE [facility] [employer] Comment on above: Performed By: #### UDRG3 ### # [facility] [address] [place], [place] [address] XR CHEST 1V FRONTAL on 06-17-2020 XR CHEST 1V FRONTAL Final Report Normal [facility] DATE OF EXAM: Jun 17 [...] Other: . IMPRESSION: No acute radiographic abnormality. Sas Bi Developer: PSCB Transcribe Date/Time: Jun 17 2020 3:30A Dictated by : SHABNAM WEST MD This examination was interpreted and the report review ed and electronically signed by: SHABNAM WEST MD on Jun 17 2020 3:30AM EST XR PELVIS 1V AP on 0 06-17-2020 XR PELVIS 1V AP Final Report Normal [employer] DATE OF EXAM: Jun 17 2020 2:35AM [...] structures are unremarkable. IMPRESSION: No acute findings Sas Bi Developer: ZORAN Transcribe Date/Time: Jun 17 2020 3:24A Dictated by : DARREL CHANG MD This examination was interpreted and the report review ed and electronically signed by: DARREL CHANG MD on Jun 17 2020 3:25AM EST ED NOTE on 0 ED NOTE HNO ID: [id number] [facility] Author: Jessica (Rn) MANDY Strickland [...] Records Found Hospital Course Note HNO ID: [id number] Author: Destinee Sampson) [place] Service: General Surgery Author Type: Nurse Practitioner Type: Discharge Summa ry Filed: 06/25/2020 9:06 AM Note Text: DISCHARGE SUMMARY PATIENT NAME: Meyrl Ogden Code Status: Not on file Highest [...] DATE CREATED AUTHOR AUTHOR'S ERICH BATISTA 07/02/2020 [facility] DATE CREATED AUTHOR AUTHOR'S CANDACE Fitzpatrick 07/13/2020 [facility] FOR RECORDS PERTAINING TO PATIENTS WHO [...] BE BASED ON THE PRIMARY CLINICAL RECORDS. [facility]. provides no warranty or guarantee of the accuracy or completeness of information in this document.
[2021-02-24 06:27] LABS: Platelet Estimate MKD DEC (ADEQ)
[2021-02-24 06:38] LABS: AST(SGOT) 92 U/L (15-37); Alanine Aminotransfer ALT/SGPT 71 U/L (16-61); Albumin, Serum 3.3 g/dL (3.2-5.0); Alkaline Phosphatase 67 U/L (45-117); Anion Gap 7 (5-15); BUN 11 mg/dL (7-18); BUN/Creat Ratio 11.6 RATIO (10-20); Calcium,Total 8.1 mg/dL (8.5-10.1); Chloride 96 mmol/L (98-107); Creatinine, Serum 0.95 mg/dL (0.70-1.30); EST Glomerular Filtration Rate 88 mL/min (>60); Est Glom Filt Rate - Afr Amer 107 mL/min (>60); Estimated Creatinine Clearance 88.12 ml/min; Globulin 3.3 g/dL (2.2-4.2); Glucose 102 mg/dL (74-106); Potassium 2.9 mmol/L (3.5-5.1); Protein, Total 6.6 g/dL (6.4-8.2); Sodium Level 134 mmol/L (136-145)
[2021-02-24] MEDS: Potassium Chloride Oral Tablet 20 MEQ PO (09:28)
[2021-02-24] MEDS: Thiamine Hydrochloride 100 MG Tablet PO (09:29)
[2021-02-24] MEDS: Folic Acid 1 MG Tablet PO (09:29)
--- NOTE | 2021-02-24 10:14 | NURSING ---
while standing at bedside preparing meds- look over at pt and he has his urinal up to his mouth states he is going to get a drink. (urinal was empty) informed pt that he had the urinal in his hand. pt hands urinal to nurse and then given his water pitcher.
--- NOTE | 2021-02-24 11:32 | CASEMGMT ---
Social Work Note Physician is stating pt will likely be medically ready for discharge tomorrow. SW placed a call to Laura at [facility] and left message to submit for pre-cert. SW to fax updated clinicals when available. Plan: [facility] pending pre-cert Willow Leung EMPLOYEE WELLNESS/FITNESS COORDINATOR, ERECTING CRANE OPERATOR
[2021-02-24] MEDS: Potassium Chloride Oral Tablet 20 MEQ 40 MEQ PO (12:23)
--- NOTE | 2021-02-24 12:58 | CHAPLAIN ---
Type of Pastoral Visit _x__ Initial Visit ___ Follow-up Visit ___ On-call Visit ___ General Patient Visit ___ Spiritual Assessment ___ Family Conference ___ Bereavement ___ Rapid Response ___ Code Blue ___ Other (describe below) Pastoral Care Referral From _x__ Patient ___ Family ___ Nurse ___ Physician ___ Vp Of Digital Marketing ___ Ski Patrol Officer ___ Other (describe below) Sacrament/Intervention _x__ Active listening ___ Anointing ___ Buddhist ___ Bereavement ___ Communion ___ Delia exploration ___ ___ Life review _x__ Prayer ___ Reconciliation ___ Sacrament of Sick _x__ Supportive presence ___ Wedding ___ Other (describe below) Pastoral Comments patient had his lunch tray before him but nothing was touched; pt was awake but did not open his eyes and appeared to fall into sleep from time to time during this visit; pt did answer questions when asked; pt was slow to respond at times; pt stated that he had worries about his finances and that he had anxiety and depression issues; offer of support is welcomed but pt suggests returning tomorrow when he hopes to feel better; pt did welcome a prayer;
--- NOTE | 2021-02-24 16:21 | PCM.PN.HOSP ---
Subjective Subjective Patient was seen this morning, he had severe symptoms of withdrawal from alcohol last night, he is now on phenobarbital. I have added Ativan IV as needed based on CIWA score. Objective Data Objective Data Vital Signs: Vital Signs Temp Pulse Resp BP Pulse Ox 98.7 F 86 18 120/79 98 02/24/21 14:15 02/24/21 14:15 02/24/21 14:15 02/24/21 14:15 02/24/21 14:15 Oxygen Delivery Method Room Air Weight: 68.492 kg Body Mass Index (BMI) 19.3 Intake & Output: Intake and Output for Last 24 Hours 02/22/21 02/23/21 02/24/21 23:59 23:59 23:59 Intake Total 2957.5 / 2957.5 3417.5 / 3417.5 2777.5 / 2777.5 Output Total 950 / 950 Balance 2957.5 / 2957.5 2467.5 / 2467.5 2777.5 / 2777.5 Lab / Micro Data Result Diagrams: 02/24/21 05:38 02/24/21 05:38 Labs: Laboratory Results - last 24 hr 02/24/21 02/24/21 05:38 05:38 WBC 6.7 RBC 3.24 L Hgb 10.6 L Hct 31.1 L MCV 96.0 H MCH 32.7 H MCHC 34.1 RDW Std Deviation 53.1 H RDW Coeff of Isabel 14.9 H Plt Count 23 L* MPV 11.2 Immature Gran % (Auto) 0.400 Neut % (Auto) 64.1 Lymph % (Auto) 25.3 [place] % (Auto) 7.4 Eos % (Auto) 2.4 Baso % (Auto) 0.4 Absolute Neuts (auto) 4.3 Absolute Lymphs (auto) 1.70 Nucleated RBC % 0 Diff Path Review May foll Platelet Estimate MKD DEC Sodium 134 L Potassium 2.9 L Chloride 96 L Carbon Dioxide 31.0 Anion Gap 7 BUN 11 Creatinine 0.95 Estim Creat Clear Calc 88.12 Est GFR (MDRD) Af Amer 107 Est GFR (MDRD) Non-Af 88 BUN/Creatinine Ratio 11.6 Glucose 102 Calcium 8.1 L Total Bilirubin 1.10 H AST 92 H ALT 71 H Alkaline Phosphatase 67 Total Protein 6.6 Albumin 3.3 Globulin 3.3 Albumin/Globulin Ratio 1.0 Micro: Microbiology 02/22/21 16:34 Mucosa - Nasopharyngeal SARS-CoV-2 Antigen (Rapid) - Final Physical Exam Const alert Constitutional Narrative: Patient's appearance is unkempt, he is unable to carry on a conversation with this examiner Patient is alert but confused Nutritional Appearance: cachectic HEENT normocephalic and head/scalp atraumatic Eyes PERRL, EOMs intact bilaterally and conjunctivae normal Neck no lymphadenopathy, supple and no JVD Lymph Lymphatic: no lymphadenopathy noted Resp normal respiratory effort, normal air movement, no retractions, no use of accessory muscles and clear to auscultation bilaterally Auscultation: Negative for rhonchi or wheezes Cardio regular rate, regular rhythm, S1 normal heart sound, S2 normal heart sound, no gallops and no clicks GI normal to inspection, nondistended, normoactive bowel sounds, soft to palpation, non-tender and non-distended Extremity no clubbing, cyanosis or edema Skin no rashes or lesions noted, no wounds and skin turgor normal General Skin Exam: no breakdown Lesions: no lesions Neuro Neuro Narrative: Patient is alert but confused, he is not able to carry on a conversation Sensorium / Orientation: awake and alert Psych Psych Narrative: Patient has a flat affect, he does not spontaneously respond by carrying on conversations Patient is alert but confused Appearance: appropriate Assessment & Plan Assessment/Plan (1) Alcohol withdrawal: PLAN: 1. Acute alcohol withdrawal-patient will continue on Ativan per CIWA score #2 encephalopathy secondary to chronic alcohol abuse-patient is unable to care for himself at home, he will need temporary placement in a alf facility #3 elevated liver enzymes secondary alcohol abuse #4 hypokalemia-potassium was 2.9 today, supplemental potassium was given to the patient, labs will be obtained tomorrow #5 thrombocytopenia-etiology unclear could be due to alcoholic liver disease, patient has had a history of low platelet counts starting earlier this year. Monitor CBC, platelet count today is lower than yesterday #6 severe protein caloric malnutrition-nutritional services will see the patient Visit Charges Inpatient E&M: 54024 Subs Hosp L2
[2021-02-24] MEDS: LORazepam 1 MG Tablet 2 MG PO ×3 (16:45→21:54)
[2021-02-24] MEDS: traZODone 100 MG Tablet PO (21:54)
[2021-02-25] VITALS (8 sets, daily range): BP systolic 135–142; BP diastolic 93–104; PULSE 82–106; RESP 16–18; TEMP 36.6–37; O2SAT 98–100
[2021-02-25] MEDS: Phenobarbital 32.4 MG Tablet 64.8 MG PO ×4 (00:33→12:55)
[2021-02-25] MEDS: 0.9% Normal Saline 1,000 ML 150 ML IV ×4 (01:33→22:30)
[2021-02-25 05:58] LABS: Absolute Neutrophil Count 2.6 X10^3/uL (2.0-7.7); Basophil# 0.03 X10^3/uL; Basophil% 0.7 % (0-1); Eosinophils% 4.5 % (0-5); Hemoglobin 11.1 g/dL (13.0-16.5); Lymphocyte % 27.3 % (19-41); Mean Corp Hgb Conc 34.7 g/dL (32-36); Mean Corpuscular Hgb 33.2 pg (27.0-32.0); Mean Corpuscular Volume 95.8 fL (80-94); Mean Platelet Vol. 10.2 fl (6.2-12.0); Monocyte# 0.32 X10^3/uL; Monocyte% 7.3 % (0-10); NRBC Flagged by Analyzer 0 % (0-5); Neutrophil # 2.61 X10^3/uL (2.7-7.7); Neutrophil % 59.3 % (47-70); POSITIVE COUNT YES; RBC Distribution Width CV 14.4 % (11.6-14.6); RBC Distribution Width SD 50.6 fl (35.1-43.9); Red Blood Count 3.34 M/mm3 (4.6-6.2); White Blood Count 4.4 K/mm3 (4.4-11.0)
[2021-02-25 06:04] LABS: Differential Indicated SCAN CRITERIA MET; Platelet Count 26 K/mm3 (150-450)
[2021-02-25 06:19] LABS: Platelet Estimate MKD DEC (ADEQ)
[2021-02-25 06:32] LABS: Anion Gap 9 (5-15); BUN 4 mg/dL (7-18); BUN/Creat Ratio 7.3 RATIO (10-20); Calcium,Total 8.2 mg/dL (8.5-10.1); Chloride 100 mmol/L (98-107); Creatinine, Serum 0.55 mg/dL (0.70-1.30); EST Glomerular Filtration Rate 167 mL/min (>60); Est Glom Filt Rate - Afr Amer 202 mL/min (>60); Glucose 80 mg/dL (74-106); Potassium 2.9 mmol/L (3.5-5.1); Sodium Level 135 mmol/L (136-145)
[2021-02-25] MEDS: Potassium Chloride Oral Tablet 20 MEQ PO (10:47)
[2021-02-25] MEDS: Thiamine Hydrochloride 100 MG Tablet PO (10:48)
[2021-02-25] MEDS: Potassium Chloride Oral Tablet 20 MEQ 60 MEQ PO (10:48)
[2021-02-25] MEDS: Folic Acid 1 MG Tablet PO (10:48)
--- NOTE | 2021-02-25 10:59 | CASEMGMT ---
Addendum entered by Willow Leung 02/25/21 14:17: WILLIAM placed another call to Laura at [facility], pre-cert is still pending. Original Note: Social Work Note Pt is medically ready for discharge once pre-cert is obtained. WILLIAM placed a call to Laura at [facility] and left message regarding pre-cert and that pt is ready for discharge once pre-cert is obtained. Plan: [facility] pending pre-cert Willow Leung MEDICAL GRADE SHOEMAKER, RACING SECRETARY
[2021-02-25 12:15] LABS: Pathologist Review Reviewed
[2021-02-25 12:27] LABS: Pathologist Review Reviewed
[2021-02-25] MEDS: Potassium Chloride Oral Tablet 20 MEQ 40 MEQ PO (12:55)
--- NOTE | 2021-02-25 14:51 | CHAPLAIN ---
Type of Pastoral Visit ___ Initial Visit _x__ Follow-up Visit ___ On-call Visit ___ General Patient Visit ___ Spiritual Assessment ___ Family Conference ___ Bereavement ___ Rapid Response ___ Code Blue ___ Other (describe below) Pastoral Care Referral From _x__ Patient ___ Family ___ Nurse ___ Physician ___ Electrostatic Painter ___ National Dedicated Truck Driver ___ Other (describe below) Sacrament/Intervention ___ Active listening ___ Anointing ___ Faith ___ Bereavement ___ Communion ___ Delia exploration ___ ___ Life review _x__ Prayer ___ Reconciliation ___ Sacrament of Sick _x__ Supportive presence ___ Wedding ___ Other (describe below) Pastoral Comments patient converses minimally; pt does state that he needs to use bathroom and this erosion control coordinator called for ROAD MENDER assistance; pt say ok to prayer, mumbles some other words or answers; pt does not open his eyes
--- NOTE | 2021-02-25 16:10 | PCM.PN.HOSP ---
Subjective Subjective Patient was seen and examined today, he is somnolent but awakens to verbal stimulation. We are currently awaiting placement in a long-term facility for the patient Objective Data Objective Data Vital Signs: Vital Signs Temp Pulse Resp BP Pulse Ox 98.1 F 82 18 135/93 H 100 02/25/21 15:26 02/25/21 15:26 02/25/21 15:26 02/25/21 15:26 02/25/21 15:26 Oxygen Delivery Method Room Air Weight: 68.492 kg Body Mass Index (BMI) 19.3 Intake & Output: Intake and Output for Last 24 Hours 02/23/21 02/24/21 02/25/21 23:59 23:59 23:59 Intake Total 3417.5 / 3417.5 3755.0 / 3755.0 2415 / 2415 Output Total 950 / 950 Balance 2467.5 / 2467.5 3755.0 / 3755.0 2415 / 2415 Lab / Micro Data Result Diagrams: 02/25/21 05:44 02/25/21 05:44 Labs: Laboratory Results - last 24 hr 02/24/21 02/25/21 02/25/21 05:38 05:44 05:44 WBC 4.4 RBC 3.34 L Hgb 11.1 L Hct 32.0 L MCV 95.8 H MCH 33.2 H MCHC 34.7 RDW Std Deviation 50.6 H RDW Coeff of Isabel 14.4 Plt Count 26 L* MPV 10.2 Immature Gran % (Auto) 0.900 Neut % (Auto) 59.3 Lymph % (Auto) 27.3 [place] % (Auto) 7.3 Eos % (Auto) 4.5 Baso % (Auto) 0.7 Absolute Neuts (auto) 2.6 Absolute Lymphs (auto) 1.20 Nucleated RBC % 0 Diff Path Review Reviewed Reviewed Platelet Estimate MKD DEC Sodium 135 L Potassium 2.9 L Chloride 100 Carbon Dioxide 26.0 Anion Gap 9 BUN 4 L Creatinine 0.55 L Estim Creat Clear Calc 152.20 Est GFR (MDRD) Af Amer 202 Est GFR (MDRD) Non-Af 167 BUN/Creatinine Ratio 7.3 L Glucose 80 Calcium 8.2 L Micro: Microbiology 02/22/21 16:34 Mucosa - Nasopharyngeal SARS-CoV-2 Antigen (Rapid) - Final Physical Exam Const Constitutional Narrative: Patient's appearance is unkempt, he is unable to carry on a conversation with this examiner Patient is somnolent Nutritional Appearance: cachectic HEENT normocephalic and head/scalp atraumatic Eyes PERRL, EOMs intact bilaterally and conjunctivae normal Neck no lymphadenopathy, supple and no JVD Lymph Lymphatic: no lymphadenopathy noted Resp normal respiratory effort, normal air movement, no retractions, no use of accessory muscles and clear to auscultation bilaterally Auscultation: Negative for rhonchi or wheezes Cardio regular rate, regular rhythm, S1 normal heart sound, S2 normal heart sound, no gallops and no clicks GI normal to inspection, nondistended, normoactive bowel sounds, soft to palpation, non-tender and non-distended Extremity no clubbing, cyanosis or edema Skin no rashes or lesions noted, no wounds and skin turgor normal General Skin Exam: no breakdown Lesions: no lesions Neuro CN's II-XII intact bilaterally, no focal motor deficits and no sensory deficits noted Neuro Narrative: Patient is alert but confused, he is not able to carry on a conversation Psych thought process normal Psych Narrative: Patient has a flat affect, he does not spontaneously respond by carrying on conversations Patient is somnolent Appearance: appropriate Assessment & Plan Assessment/Plan (1) Alcohol withdrawal: PLAN: 1. Acute alcohol withdrawal-patient will continue on Ativan per CIWA score, I will reduce the patient's phenobarbital due to somnolence today #2 encephalopathy secondary to chronic alcohol abuse-patient is unable to care for himself at home, he will need temporary placement in a long-term facility #3 elevated liver enzymes secondary alcohol abuse #4 hypokalemia-potassium was 2.9 today, supplemental potassium was given to the patient, labs will be obtained tomorrow #5 thrombocytopenia-etiology unclear could be due to alcoholic liver disease, patient has had a history of low platelet counts starting earlier this year. Monitor CBC, platelet count today is lower than yesterday #6 severe protein caloric malnutrition-nutritional services are seeing the patient Visit Charges Inpatient E&M: 31605 Subs Hosp L2
[2021-02-26 05:45] LABS: Absolute Lymphocyte Count 1.09 X10^3/uL (0.83-4.51); Absolute Neutrophil Count 2.9 X10^3/uL (2.0-7.7); Basophil# 0.04 X10^3/uL; Basophil% 0.9 % (0-1); Eosinophil# 0.15 X10^3/uL; Eosinophils% 3.3 % (0-5); Hematocrit 33.4 % (40-54); Hemoglobin 11.7 g/dL (13.0-16.5); Lymphocyte # 1.09 X10^3/ul (0.83-4.51); Lymphocyte % 23.6 % (19-41); Mean Corpuscular Hgb 33.3 pg (27.0-32.0); Mean Corpuscular Volume 95.2 fL (80-94); Monocyte# 0.37 X10^3/uL; NRBC Flagged by Analyzer 0 % (0-5); Neutrophil # 2.89 X10^3/uL (2.7-7.7); Neutrophil % 62.7 % (47-70); POSITIVE COUNT YES; Platelet Count 49 K/mm3 (150-450); RBC Distribution Width CV 13.9 % (11.6-14.6); Red Blood Count 3.51 M/mm3 (4.6-6.2); White Blood Count 4.6 K/mm3 (4.4-11.0)
[2021-02-26] MEDS: 0.9% Normal Saline 1,000 ML 150 ML IV (05:47)
[2021-02-26 06:02] LABS: Differential Indicated SCAN CRITERIA MET
[2021-02-26 06:12] LABS: Anion Gap 10 (5-15); BUN 5 mg/dL (7-18); BUN/Creat Ratio 9.5 RATIO (10-20); Calcium,Total 8.8 mg/dL (8.5-10.1); Chloride 95 mmol/L (98-107); Creatinine, Serum 0.53 mg/dL (0.70-1.30); EST Glomerular Filtration Rate 174 mL/min (>60); Est Glom Filt Rate - Afr Amer 211 mL/min (>60); Estimated Creatinine Clearance 157.95 ml/min; Glucose 73 mg/dL (74-106); Potassium 3.5 mmol/L (3.5-5.1); Sodium Level 132 mmol/L (136-145)
[2021-02-26 09:30] VITALS: BP 134/93; PULSE 108; RESP 18; TEMP 36.9; O2SAT 97
[2021-02-26] MEDS: Folic Acid 1 MG Tablet PO (09:40)
[2021-02-26] MEDS: Thiamine Hydrochloride 100 MG Tablet PO (09:41)
[2021-02-26] MEDS: Potassium Chloride Oral Tablet 20 MEQ PO (09:44)
--- NOTE | 2021-02-26 11:16 | CASEMGMT ---
Social Work Note SW placed a call to Laura at [facility] and left message regarding pre-cert. SW waiting for call back. Plan: [facility] pending pre-cert Willow Leung FAMILY DAY CARE PROVIDER, HELP DESK SUPPORT
[2021-02-26 12:19] LABS: Pathologist Review Reviewed
--- NOTE | 2021-02-26 14:00 | CASEMGMT ---
Social Work Note WILLIAM received call from Laura at [facility] stating pre-cert has been obtained and pt is able to discharge to SNF today. Laura asked if pt has had COVID vaccinations. WILLIAM informed Laura that this worker is not sure, will ask pt. WILLIAM updated physician. Pt is medically ready for discharge today. SW in to speak with pt. Pt laying in bed, eyes closed, pt didn't open eyes to speak to this worker. WILLIAM updated pt that he will be discharged to the detention [facility] today. Pt states ok. WILLIAM asked pt if this worker could call his mother Jacqueline Rodriguez to update, pt states please do. SW asked pt if he has had COVID vaccination. Pt states he has had one. WILLIAM placed a call to pt's mother Jacqueline Rodriguez and updated her that pt will be discharged to [facility] today. Jacqueline Rodriguez states understanding. WILLIAM placed a call to Laura at [facility] and updated her that pt will be discharged today and that pt has had one of his COVID vaccination. Laura states pt's COVID test from the is good for pt's discharge today. WILLIAM will fax discharge paperwork once completed and will arrange transportation when discharge is in. Plan: [facility] skilled today Willow Leung CUSTOMER EXPERIENCE PROFESSIONAL, SAIL REPAIR PERSON
[2021-02-26 14:12] VITALS: BP 123/90; PULSE 110; RESP 16; TEMP 36.6; O2SAT 98
--- NOTE | 2021-02-26 14:58 | PCM.TXEXTCAR ---
Diet 02/22/21 22:50 Diet: Regular - General Food consistency:: Regular Liquid Consistency:: Regular/Thin Type of Dietary Supplement:: Ensure Enlive Is pt able to select menu?: No Diet Comments: drinks in sippy cups please Therapies Weight Bearing: Full weight bearing Physical Therapy: Eval and Treat Occupational Therapy: Eval and Treat Problem/Diagnosis (1) Alcohol withdrawal: Status: Chronic (2) Hypokalemia: Status: Chronic (3) Alcohol abuse: Status: Chronic (4) Encephalopathy: Status: Resolved (5) Elevated LFTs: Status: Chronic Comment: secondary to alcoholism (6) Thrombocytopenia: Status: Chronic Comment: secondary to alcoholism (7) Malnutrition: Status: Acute Allergies/Procedures Done in Hospital Allergies diphenhydramine HCl [From Benadryl] Adverse Reaction (Verified 02/22/21 16:04) Swelling mushroom Adverse Reaction (Verified 02/22/21 16:04) Vomiting Procedures: None Type of Care/Length of Stay Estimated LOS: Convalescent Care Less Than 30 days Type of Care Needed: Skilled Rehab Potential: Fair Prognosis: Fair Additional Orders/Day of Discharge Additional Orders: Pt would like to follow up w/[facility] once discharged from SNF. ([phone]) H&P will serve as current which was dated: 02/22/21 Day of Discharge: 02/26/21 Dietary and Speech Recommendations Dietitian Recommendations/Changes: continue regular diet; will have ensure w/ meals only Discharge Plan Admission Admit Date/Time: 02/22/21 22:30 Primary Reason for Your Visit: alcohol withdrawal Attending Provider: Malvin Will Primary Care Provider: Asael Herrera Instructions Additional Instructions / Restrictions: Obtain CBC and BMP in 3 days Discharge Orders/Prescriptions Prescriptions: New phenobarbital 16.2 mg Tablet 32.4 mg PO BID 7 Days Qty: 28 RF: 0 acetaminophen [Tylenol] 325 mg Tablet 650 mg PO Q6H PRN PRN (Reason: fever or pain 1-10) Qty: 1 RF: 0 thiamine HCl (vitamin B1) [Vitamin B-1] 100 mg Tablet 100 mg PO BREAKFAST Qty: 1 RF: 0 nicotine 21 mg/24 hr Patch 24 Hour 21 mg transdermal DAILY Qty: 1 RF: 0 folic acid 1 mg Tablet 1 mg PO BREAKFAST Qty: 1 RF: 0 trazodone 100 mg Tablet 100 mg PO QHS PRN (Reason: Insomnia) Qty: 1 RF: 0 Continued trazodone 100 mg tablet 100 mg PO QHS PRN (Reason: Insomnia) Qty: 15 RF: 0 Discontinued potassium chloride 20 MEQ tablet 20 meq PO DAILY Qty: 10 RF: 0 hydroxyzine pamoate 25 mg capsule 25 - 50 mg PO Q6H PRN PRN (Reason: mild anxiety) Qty: 20 RF: 0 Referrals / Follow Up: Asael Herrera DO [Primary Care Provider] - Disposition Disposition (needs filled in before D/C Order can be placed): [facility]
[2021-02-26 15:07] VITALS: O2SAT 97
--- NOTE | 2021-02-26 16:13 | NURSING ---
Alisha Jackson - [phone] [facility]
--- NOTE | 2021-02-26 16:14 | CASEMGMT ---
Addendum entered by Willow Leung 02/26/21 16:33: WILLIAM did place a call to pt's mother Jacqueline Rodriguez and updated her on transportation time. Original Note: Social Work Note Pt has [employer] insurance, for [employer] SW is to call [id number] for transportation. WILLIAM looked up [id number], there is no number listed to call but an online ordering/scheduling system that needs to be downloaded and an account needs to be created. WILLIAM attempted to call pt's [employer] insurance, it is an automated system and no option is listed for transportation. WILLIAM placed a call to [facility] and spoke with Tere, Tere states they can schedule the transportation for [place]. Transportation arranged for 6:30pm via cot. Transportation form completed and placed on SNF Folder and copy on pt's chart. WILLIAM faxed completed discharge paperwork to [facility] including transfer to extended care facility, signed medication list, any scripts, COVID tool, and HENS. Original in SNF folder and copy on pt's chart. WILLIAM completed convalescent 7000 in HENS. WILLIAM updated RN on transportation time who will update pt. WILLIAM then was updated by moth exterminator that pt's landlord is on the phone and stating pt will not able to return to his apartment at discharge. Pt's apartment is being inspected by the Health Department and is having to send in Hazmat to clean pt's apartment. It appears pt is getting evicted from his apartment. Pt's father is the one paying pt's rent for his apartment. WILLIAM encouraged moth exterminator to let his land lord know to reach out to pt's father regarding apartment and to also reach out to pt when he is at the SNF. Pt has been hallucinating and Alert x1 while at [facility] during this visit. Pt's landlord will need to speak with pt once he is more lucid and able to hold a conversation. WILLIAM placed a call to Laura in admissions at [facility] and left message informing her of transportation time and on pt's apartment. WILLIAM asked Laura to make sure pt speaks to his landlord while pt is at [facility] and to have the SW at [facility] meet with pt as well. Plan: [facility] Skilled today with [facility] pt via cot at 6:30pm Willow Leung MSW, GALLEY WORKER
[2021-02-26 17:44] VITALS: BP 114/88; PULSE 102; RESP 18; TEMP 36.6; O2SAT 99
--- NOTE | 2021-02-27 17:01 | DS.PCM_ITS ---
Providers Date of Admission: 02/22/21 Date of Discharge: 02/26/21 Primary Care Physician: Dr. Asael Herrera DO Reason For Visit: ALCOHOL WITHDRAWAL Diagnosis Discharge Diagnosis (1) Alcohol withdrawal: Status: Chronic Code(s): F10.239 - Alcohol dependence with withdrawal, unspecified (2) Hypokalemia: Status: Chronic Code(s): E87.6 - Hypokalemia (3) Alcohol abuse: Status: Chronic Code(s): F10.10 - Alcohol abuse, uncomplicated (4) Encephalopathy: Status: Resolved Code(s): G93.40 - Encephalopathy, unspecified (5) Elevated LFTs: Status: Chronic Code(s): R79.89 - Other specified abnormal findings of blood chemistry (6) Thrombocytopenia: Status: Chronic Code(s): D69.6 - Thrombocytopenia, unspecified (7) Malnutrition: Status: Acute Code(s): E46 - Unspecified protein-calorie malnutrition Plan: 1. Acute alcohol withdrawal #2 chronic alcoholism #3 encephalopathy secondary to chronic alcohol abuse #4 elevated liver enzymes secondary to alcohol abuse #5 hypokalemia #6 thrombocytopenia secondary to chronic alcohol use #7 severe protein and caloric malnutrition Medications at Discharge Home Medications trazodone 100 mg tablet 100 mg PO QHS PRN #15 tab 12/29/20 acetaminophen [Tylenol] 650 mg PO Q6H PRN PRN #1 tab 02/26/21 folic acid 1 mg PO BREAKFAST #1 tab 02/26/21 nicotine 21 mg TRANSDERMAL DAILY #1 ea 02/26/21 phenobarbital 32.4 mg PO BID 7 Days #28 tab 02/26/21 thiamine HCl (vitamin B1) [Vitamin B-1] 100 mg PO BREAKFAST #1 tab 02/26/21 trazodone 100 mg PO QHS PRN #1 tab 02/26/21 Hospital Course Operations None Procedures None Summary of Care Provided Minutes Spent on Discharge: 32 Hospital Course: This 50-year-old white male with a long history of alcohol abuse was seen in the emergency room requesting services for detox from alcohol. He had been admitted here at the hospital multiple times over the past 6 to 8 months, he had not followed through with outpatient detox treatment. Labs obtained in the emergency room included a CBC which showed a low platelet count 47,000, chemistry profile was unremarkable, toxicology screen was unremarkable except for a blood alcohol level of 175. Patient was admitted to [place] [address], patient was unkempt and disheveled, it was obvious that he was not able to care for self at home, discussions were carried out with the patient and he consented to go to a usp facility for short-term rehab services. I contacted his nurse living relative by phone (his parents) he lived in [place] and let them know that he was in the hospital and what his medical care plan consisted of. Patient had a short episode of combative behavior when he was withdrawing from alcohol which did not last but for a few hours, his potassium was low at one point during the admission and he was given potassium supplementation. On 02/26/2021, patient was seen and examined: On examination he appeared in no distress. Vital signs as documented. Skin warm and dry and without overt rashes. Neck without JVD, neck was supple, trachea midline, thyroid was normal. Lungs clear bilaterally, normal air movement was noted. Heart exam notable for regular rhythm, normal sounds and absence of murmurs, rubs or gallops. Abdomen unremarkable and without evidence of organomegaly, masses, or abdominal aortic enlargement. Bowel sounds are present, abdomen is not distended. Extremities nonedematous, no cyanosis was noted, no clubbing was noted. Neuro: Cranial nerves II through XII are grossly intact, no focal motor deficits were noted, sensation to light touch and pinprick intact, motor exam 5/5 throughout. Psych: Patient is alert, affect is flat Patient was transferred to a usp facility on 02/26/2021 in stable condition ABG / Lab / Microbiology Data Result Diagrams: 02/26/21 05:05 02/26/21 05:05 Microbiology: Microbiology 02/22/21 16:34 Mucosa - Nasopharyngeal SARS-CoV-2 Antigen (Rapid) - Final Meaningful Use Info Meaningful Use Diagnoses (Choose all that apply): None applicable Discharge Plan Admission Admit Date/Time: 02/22/21 22:30 Primary Reason for Your Visit: alcohol withdrawal Attending Provider: Malvin Will Primary Care Provider: Asael Herrera Instructions Additional Instructions / Restrictions: Obtain CBC and BMP in 3 days Discharge Orders/Prescriptions Prescriptions: New phenobarbital 16.2 mg Tablet 32.4 mg PO BID 7 Days Qty: 28 RF: 0 acetaminophen [Tylenol] 325 mg Tablet 650 mg PO Q6H PRN PRN (Reason: fever or pain 1-10) Qty: 1 RF: 0 thiamine HCl (vitamin B1) [Vitamin B-1] 100 mg Tablet 100 mg PO BREAKFAST Qty: 1 RF: 0 nicotine 21 mg/24 hr Patch 24 Hour 21 mg transdermal DAILY Qty: 1 RF: 0 folic acid 1 mg Tablet 1 mg PO BREAKFAST Qty: 1 RF: 0 trazodone 100 mg Tablet 100 mg PO QHS PRN (Reason: Insomnia) Qty: 1 RF: 0 Continued trazodone 100 mg tablet 100 mg PO QHS PRN (Reason: Insomnia) Qty: 15 RF: 0 Discontinued potassium chloride 20 MEQ tablet 20 meq PO DAILY Qty: 10 RF: 0 hydroxyzine pamoate 25 mg capsule 25 - 50 mg PO Q6H PRN PRN (Reason: mild anxiety) Qty: 20 RF: 0 Referrals / Follow Up: Asael Herrera DO [Primary Care Provider] - Disposition Disposition (needs filled in before D/C Order can be placed): [facility] Facility Visit Charges Inpatient E&M: 38192 Disch Hosp
--- NOTE | 2021-03-01 16:19 | CASEMGMT ---
Social Work Note WILLIAM had received message from Sandra THOMAS at [facility] [employer] [facility] ([phone]) requesting call back regarding name and number of pt's landlord. WILLIAM reviewed chart, pt's landlord is Alisha Jackson ). WILLIAM placed a call to Sandra THOMAS at [place] to provide landlord information. Sandra states she was able to get contact information today and pt's landlord filed an APS report for pt. Sandra states she will be calling Aryan with APS to follow up on APS report. Willow Leung HYDROELECTRIC PLANT ELECTRICIAN, NATURAL DEVELOPER
== END 2021-02-26 18:57 | disposition skilled nursing facility (03) | DRG 775 ==
LOC: ED 21:00 → MS3 02-23 03:35
PROVIDERS: Admitting Provider Family Medicine; Emergency Provider Emergency Medicine; PCP Family Medicine; Visit Provider Internal Medicine
DX: F10.239 Alcohol dependence with withdrawal, unspecified (principal); E43 Unspecified severe protein-calorie malnutrition; G31.2 Degeneration of nervous system due to alcohol; D69.59 Other secondary thrombocytopenia; E86.0 Dehydration; G40.909 Epilepsy, unspecified, not intractable, without status epilepticus; E87.6 Hypokalemia; F17.200 Nicotine dependence, unspecified, uncomplicated; F32.9 Major depressive disorder, single episode, unspecified; F41.9 Anxiety disorder, unspecified; G47.30 Sleep apnea, unspecified; I10 Essential (primary) hypertension; Y90.9 Presence of alcohol in blood, level not specified; Z87.820 Personal history of traumatic brain injury; Z68.1 Body mass index [BMI] 19.9 or less, adult; Z79.899 Other long term (current) drug therapy
CPT/HCPCS: 36415; 70450; 71045; 80048; 80053; 80076; 80307; 81001; 82077; 82607; 83605; 83690; 84484; 85025; 85610; 85730; 87426; 93005; 97162; 97166; 97530; 99285; J7030; A4216; J2405